=== PATIENT | female | born 1975 | race Caucasian/White ===

== ENCOUNTER 2017-05-06 22:44 | Emergency (ER) | payer OTHER, SELFPAY ==
--- OUTSIDE RECORDS SUMMARY | 2017-05-06 22:46 | XMS REPORT ---
:1975 [facility] Address [address] [place] [address] Care Team Providers Name Role Phone Unavailable Unavailable Unavailable Problems This patient has no known problems. Allergies, Adverse Reactions, Alerts This patient has no known allergies or adverse reactions. Medications This patient has no known medications. Encounters Start End Encounter Admission Attending Care Care Encounter Date/Time Date/Time Type Type Clinicians Facility Department ID 2016-12-11 Inpatient [facility] [id number] 19:13:58 2016-11-22 Inpatient [facility] [id number] 15:22:01 2016-11-21 Inpatient [facility] [id number] 01:48:38 2016-11-21 Inpatient [facility] [id number] 01:48:30 2016-11-20 Inpatient [facility] [id number] 05:55:00 2017-07-03 2017-07-03 Outpatient [facility] [id number] 00:00:00 00:00:00 2017-05-23 2017-05-23 Outpatient [facility] [id number] 00:00:00 00:00:00 2017-05-02 2017-05-02 Outpatient [facility] [id number] 00:00:00 00:00:00 2017-04-25 2017-04-25 Outpatient [facility] [id number] 09:01:53 09:01:53 2017-04-17 2017-04-17 Outpatient [facility] [id number] 06:05:00 06:05:00 2017-04-17 2017-04-17 Outpatient [facility] [id number] 00:00:00 00:00:00 2017-04-16 2017-04-16 Outpatient [facility] [id number] 00:00:00 00:00:00 2017-04-13 2017-04-13 Outpatient [facility] [id number] 09:12:04 09:12:04 2017-04-03 2017-04-03 Outpatient [facility] [id number] 00:00:00 00:00:00 2017-03-27 2017-03-27 Outpatient [facility] [id number] 06:15:00 06:15:00 2017-03-27 2017-03-27 Out[facility] [id number] 00:00:00 00:00:00 2017-03-19 2017-03-19 Outpatient [facility] [id number] 13:22:16 13:22:16 2017-03-19 2017-03-19 Outpatient [facility] [id number] 00:00:00 00:00:00 2017-03-12 2017-03-12 Outpatient [facility] [id number] 13:45:55 13:45:55 2017-03-09 2017-03-09 Outpatient [facility] [id number] 00:00:00 00:00:00 2017-03-08 2017-03-08 Outpatient [facility] [id number] 16:03:22 16:03:22 2017-03-08 2017-03-08 Outpatient [facility] [id number] 14:45:05 14:45:05 2017-02-23 2017-02-23 Outpatient [facility] [id number] 10:41:02 10:41:02 2017-02-23 2017-02-23 Outpatient [facility] [id number] 08:11:53 08:11:53 2017-02-23 2017-02-23 Outpatient [facility] [id number] 07:53:43 07:53:43 2017-02-23 2017-02-23 Outpatient [facility] [id number] 00:00:00 00:00:00 2017-02-08 2017-02-08 Outpatient [facility] [id number] 12:32:00 12:32:00 2017-01-24 2017-01-24 Outpatient [facility] [id number] 00:00:00 00:00:00 2017-01-23 2017-01-23 Outpatient [facility] [id number] 12:16:30 12:16:30 2017-01-22 2017-01-22 Outpatient [facility] [id number] 11:30:20 11:30:20 2017-01-15 2017-01-15 Outpatient [facility] [id number] 00:00:00 00:00:00 2017-01-09 2017-01-09 Outpatient [facility] [id number] 09:09:26 09:09:26 2017-01-04 2017-01-04 Outpatient [facility] [id number] 14:36:02 14:36:02 2017-01-02 2017-01-02 Outpatient [facility] [id number] 08:36:10 08:36:10 2016-12-27 2016-12-27 Outpatient [facility] [id number] 11:33:15 11:33:15 2016-12-22 2016-12-22 Outpatient [facility] [id number] 09:02:45 09:02:45 2016-12-11 2016-12-11 Outpatient [facility] [id number] 09:01:19 09:01:19 2016-12-11 2016-12-11 Inpatient [facility] [id number] 14:16:44 00:00:00 2016-12-07 2016-12-07 Outpatient [facility] [id number] 00:00:00 00:00:00 2016-12-06 2016-12-06 Outpatient [facility] [id number] 14:40:31 14:40:31 2016-12-04 2016-12-04 Outpatient [facility] [id number] 10:31:01 10:31:01 2016-11-27 2016-11-27 Outpatient [facility] [id number] 00:00:00 00:00:00 2016-11-20 2016-11-20 Outpatient [facility] [id number] 00:00:00 00:00:00 2016-11-20 2016-11-20 Outpatient [facility] [id number] 00:00:00 00:00:00 2016-11-17 2016-11-17 Outpatient [facility] [id number] 00:00:00 00:00:00 2016-10-12 2016-10-12 Outpatient [facility] [id number] 00:00:00 00:00:00 2016-10-10 2016-10-10 Out[facility] [id number] 00:00:00 00:00:00 2016-10-10 2016-10-10 [facility] [id number] 00:00:00 00:00:00 2016-10-10 2016-10-10 [facility] [id number] 00:00:00 00:00:00 2016-09-15 2016-09-15 [facility] [id number] 00:00:00 00:00:00 2016-08-30 2016-08-30 Out[facility] [id number] 09:44:27 09:44:27
--- NOTE | 2017-05-06 23:27 | ER ---
Nurse's Notes [facility] Name: Mildred Caldwell Age: 41 yrs Sex: Female : 1975 Arrival Date: 05/06/2017 Time: 22:47 Bed 8 Private MD: Diagnosis: Lumbago with sciatica Presentation: 05/06 22:53 Presenting complaint: EMS states: She has a history of chronic back pain and it got lk1 worse today after picking up one of her kids around 6pm. Transition of care: patient was not received from another setting of care. Onset of symptoms was May 06, 2017 at 18:00. Care prior to arrival: None. 22:53 Method Of Arrival: EMS: [facility] lk1 22:53 Acuity: JENNIFER 3 lk1 Triage Assessment: 22:58 General: Appears uncomfortable, Behavior is calm, cooperative, appropriate for age. lk1 Pain: Complains of pain in back Pain currently is 9 out of 10 on a pain scale. EENT: No signs and/or symptoms were reported regarding the EENT system. Neuro: Level of Consciousness is awake, alert, obeys commands, Oriented to person, place, time, situation, Speech is normal, Facial symmetry appears normal, Reports paresthesias in right foot and left foot. Cardiovascular: Capillary refill is brisk Patient's skin is warm and dry. Respiratory: Airway is patent Respiratory effort is even, unlabored, Respiratory pattern is regular, symmetrical. GI: Abdomen is non-distended. : No signs and/or symptoms were reported regarding the genitourinary system. Derm: No signs and/or symptoms reported regarding the dermatologic system. Musculoskeletal: Swelling absent. 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 - Social history:: Smoking status: unknown. Screenin/19 00:01 Abuse screen: Denies threats or abuse. Denies injuries from another. Nutritional lk1 screening: No deficits noted. Tuberculosis screening: No symptoms or risk factors identified. Fall Risk None identified. Assessment: 00:02 Neuro: No deficits noted. lk1 Vital Signs: 05/06 22:59 BP 110 / 76; Pulse 70; Resp 15; Temp 98.4(O); Pulse Ox 99% on R/A; Weight 69.4 kg (M); lk1 Height 5 ft. 6 in. (167.64 cm) (R); Pain 9/10; 22:59 Body Mass Index 24.69 (69.40 kg, 167.64 cm) [facility] ED Course: 22:47 Patient arrived in ED. [facility] 22:52 Shemar Barrera MD is Attending Physician. 22:56 Triage completed. lk1 23:01 Arm band placed on right wrist. [facility] 23:26 Nicholas Winchester DO is Referral Physician. 23:26 Carlitos Rocha MD is Referral Physician. 23:31 Kait Schneider RN is Primary Nurse. [facility] 05/07 00:01 Patient has correct armband on for positive identification. Bed in low position. Call lk1 light in reach. Side rails up X2. 00:02 No provider procedures requiring assistance completed. Patient did not have IV access lk during this emergency room visit. Administered Medications: 05/06 23:29 Drug: [place] 10 mg-325 mg 1 tabs Route: PO; ea 05/07 00:04 Follow up: Response: No adverse reaction; Pain is decreased [facility] 05/06 23:33 Drug: predniSONE 20 mg Route: PO; ea 05/07 00:04 Follow up: Response: No adverse reaction; Marked relief of symptoms [facility] Outcome: 05/06 23:27 Discharge ordered by . 05/07 00:02 Discharged to home via wheelchair, with family. lk Condition: good Discharge instructions given to patient, family, Instructed on discharge instructions, follow up and referral plans. medication usage, safety practices, Demonstrated understanding of instructions, follow-up care, medications, Prescriptions given X 2. 00:04 Patient left the ED. [facility] Signatures: Kait Schneider RN RN [facility] Susie Velazquez RN RN ea Starr, Gregory, MD MD
--- NOTE | 2017-05-06 23:27 | EDPHYS ---
Physician Documentation [facility] Name: Mildred Caldwell Age: 41 yrs Sex: Female : 1975 Arrival Date: 05/06/2017 Time: 22:47 Bed 8 Private MD: ED Physician Shemar Barrera HPI: 05/06 23:24 This 41 yrs old Female presents to ER via EMS with complaints of Back Pain. gs 23:24 The patient presents with pain that is acute. The symptoms are located in the low back. gs Onset: The symptoms/episode began/occurred acutely, today. The pain radiates to the right leg and left leg. Associated signs and symptoms: Pertinent positives: tingling, Pertinent negatives: incontinence, numbness, urinary retention. Modifying factors: the patient symptoms are aggravated by any movement. Severity of symptoms: At their worst the symptoms were severe, in the emergency department the symptoms are unchanged. The patient has experienced similar episodes in the past, multiple times. 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 - Social history:: Smoking status: unknown. ROS: 23:24 All other systems are negative. gs Exam: 23:24 Head/Face: Normocephalic, atraumatic. Eyes: Pupils equal round and reactive to light, gs extra-ocular motions intact. Lids and lashes normal. Conjunctiva and sclera are non-icteric and not injected. Cornea within normal limits. Periorbital areas with no swelling, redness, or edema. ENT: Nares patent. No nasal discharge, no septal abnormalities noted. Tympanic membranes are normal and external auditory canals are clear. Oropharynx with no redness, swelling, or masses, exudates, or evidence of obstruction, uvula midline. Mucous membranes moist. Neck: Trachea midline, no thyromegaly or masses palpated, and no cervical lymphadenopathy. Supple, full range of motion without nuchal rigidity, or vertebral point tenderness. No Meningismus. Chest/axilla: Normal chest wall appearance and motion. Nontender with no deformity. No lesions are appreciated. Cardiovascular: Regular rate and rhythm with a normal S1 and S2. No gallops, murmurs, or rubs. Normal PMI, no JVD. No pulse deficits. Respiratory: Lungs have equal breath sounds bilaterally, clear to auscultation and percussion. No rales, rhonchi or wheezes noted. No increased work of breathing, no retractions or nasal flaring. Abdomen/GI: Soft, non-tender, with normal bowel sounds. No distension or tympany. No guarding or rebound. No evidence of tenderness throughout. Skin: Warm, dry with normal turgor. Normal color with no rashes, no lesions, and no evidence of cellulitis. MS/ Extremity: Pulses equal, no cyanosis. Neurovascular intact. Full, normal range of motion. 23:24 Constitutional: The patient appears alert, awake. 23:24 Back: pain, that is moderate, of the lumbar area, vertebral tenderness, is not appreciated, Straight leg raises: pain bilaterally. 23:24 Neuro: Cranial nerves: grossly normal, Cerebellar function: is grossly normal, Motor: strength is 5/5 in all extremities, Sensation: no obvious gross deficits, pin prick testing is normal, Deep tendon reflexes are 3+ (brisk) in the right patellar, right Achilles, left patellar and left Achilles. Vital Signs: 22:59 BP 110 / 76; Pulse 70; Resp 15; Temp 98.4(O); Pulse Ox 99% on R/A; Weight 69.4 kg (M); lk1 Height 5 ft. 6 in. (167.64 cm) (R); Pain 9/10; 22:59 Body Mass Index 24.69 (69.40 kg, 167.64 cm) [facility] MDM: 23:18 Patient medically screened. 23:24 Differential diagnosis: chronic back pain, ruptured disc. Data reviewed: vital signs, nurses notes. Response to treatment: the patient's symptoms have mildly improved after treatment, and as a result, I will discharge patient. Administered Medications: 23:29 Drug: [place] 10 mg-325 mg 1 tabs Route: PO; ea 05/07 00:04 Follow up: Response: No adverse reaction; Pain is decreased [facility] 05/06 23:33 Drug: predniSONE 20 mg Route: PO; ea 05/07 00:04 Follow up: Response: No adverse reaction; Marked relief of symptoms lk1 Disposition: 05/06/17 23:27 Discharged to Home. Impression: Lumbago with sciatica. - Condition is Stable. - Discharge Instructions: Lumbosacral Radiculopathy, Back Exercises, Xury-do-Lfof. - Prescriptions for Prednisone 20 mg Oral Tablet - take 1 tablet by ORAL route once daily for 5 days; 5 tablet. Tylenol- Codeine #4 300-60 mg Oral Tablet - take 1 tablet by ORAL route every 6 hours As needed; 12 tablet. - Medication Reconciliation Form, Thank You Letter, Antibiotic Education, Prescription Opioid Use form. - Follow up: Nicholas Winchester DO; When: 2 - 3 days. Follow up: Carlitos Rocha MD; When: 2 - 3 days; Reason: Re-evaluation by your physician. Signatures: Kati Schneider RN RN lk1 Susie Velazquez RN RN ea Starr, Gregory, MD MD
[2017-05-06] MEDS ORDERED: HYDROCODONE/APAP 10/325 TAB ONE (23:47)
[2017-05-06] MEDS ORDERED: predniSONE 20 MG TAB ONE (23:49)
[2017-05-07 01:25] VITALS: BP 110/76; TEMP 98.4; O2SAT 99
== END 2017-05-07 00:04 | disposition home or self-care (01) ==
LOC: ER 22:44
DX: M54.40 Lumbago with sciatica, unspecified side (principal)
CPT/HCPCS: 99283; J7512

== ENCOUNTER 2017-05-28 12:12 | Emergency (ER) | payer SELFPAY ==
--- OUTSIDE RECORDS SUMMARY | 2017-05-28 12:14 | XMS REPORT ---
:1975 [facility] Address [address] [place] [address] Care Team Providers Name Role Phone Unavailable Unavailable Unavailable Problems This patient has no known problems. Allergies, Adverse Reactions, Alerts This patient has no known allergies or adverse reactions. Medications This patient has no known medications. Encounters Start End Encounter Admission Attending Care Care Encounter Date/Time Date/Time Type Type Clinicians Facility Department ID 2016-12-11 Inpatient [facility] [id number] 19:13:58 2016-11-22 Inpatient [facility] [id number] 15:22:01 2016-11-21 Inpatient [facility] [id number] 01:48:38 2016-11-21 Inpatient [facility] [id number] 01:48:30 2016-11-20 Inpatient COUNTS [facility]CLUDE [id number] BEDS AT THE [facility] [id number] 05:55:00 2017-07-05 2017-07-05 Outpatient [facility] [id number] 00:00:00 00:00:00 2017-07-03 2017-07-03 Outpatient [facility] [id number] 00:00:00 00:00:00 2017-05-23 2017-05-23 Outpatient [facility] [id number] 13:13:44 13:13:44 2017-05-02 2017-05-02 Outpatient [facility] [id number] 00:00:00 00:00:00 2017-04-25 2017-04-25 Outpatient [facility] [id number] 09:01:53 09:01:53 2017-04-17 2017-04-17 Outpatient COUNTS [facility]CLUDE [id number] BEDS AT THE [facility] [id number] 06:05:00 06:05:00 2017-04-17 2017-04-17 Outpatient [facility] [id number] 00:00:00 00:00:00 2017-04-16 2017-04-16 Outpatient [facility] [id number] 00:00:00 00:00:00 2017-04-13 2017-04-13 Outpatient [facility] [id number] 09:12:04 09:12:04 2017-04-03 2017-04-03 Outpatient [facility] [id number] 00:00:00 00:00:00 2017-03-27 2017-03-27 Outpatient [facility] [id number] 06:15:00 06:15:00 2017-03-27 2017-03-27 Outpatient [facility] [id number] 00:00:00 00:00:00 2017-03-19 2017-03-19 Outpatient [facility] [id number] 13:22:16 13:22:16 2017-03-19 2017-03-19 Outpatient [facility] [id number] 00:00:00 00:00:00 2017-03-12 2017-03-12 Outpatient [facility] [id number] 13:45:55 13:45:55 2017-03-09 2017-03-09 Outpatient [facility] [id number] 00:00:00 00:00:00 2017-03-08 2017-03-08 Outpatient [facility] [id number] 16:03:22 16:03:22 2017-03-08 2017-03-08 Outpatient [facility] [id number] 14:45:05 14:45:05 2017-02-23 2017-02-23 Outpatient [facility] [id number] 10:41:02 10:41:02 2017-02-23 2017-02-23 Outpatient [facility] [id number] 08:11:53 08:11:53 2017-02-23 2017-02-23 Outpatient [facility] [id number] 07:53:43 07:53:43 2017-02-23 2017-02-23 Outpatient [facility] [id number] 00:00:00 00:00:00 2017-02-08 2017-02-08 Outpatient [facility] [id number] 12:32:00 12:32:00 2017-01-24 2017-01-24 Outpatient [facility] [id number] 00:00:00 00:00:00 2017-01-23 2017-01-23 [facility] [id number] 12:16:30 12:16:30 2017-01-22 2017-01-22 [facility]patient [facility] [id number] 11:30:20 11:30:20 2017-01-15 2017-01-15 Outpatient [facility] [id number] 00:00:00 00:00:00 2017-01-09 2017-01-09 Outpatient [facility] [id number] 09:09:26 09:09:26 2017-01-04 2017-01-04 Outpatient [facility] [id number] 14:36:02 14:36:02 2017-01-02 2017-01-02 Outpatient [facility] [id number] 08:36:10 08:36:10 2016-12-27 2016-12-27 Outpatient [facility] [id number] 11:33:15 11:33:15 2016-12-22 2016-12-22 Outpatient [facility] [id number] 09:02:45 09:02:45 2016-12-11 2016-12-11 Outpatient [facility] [id number] 09:01:19 09:01:19 2016-12-11 2016-12-11 Inpatient [facility] [id number] 14:16:44 00:00:00 2016-12-07 2016-12-07 Outpatient [facility] [id number] 00:00:00 00:00:00 2016-12-06 2016-12-06 Outpatient [facility] [id number] 14:40:31 14:40:31 2016-12-04 2016-12-04 Outpatient [facility] [id number] 10:31:01 10:31:01 2016-11-27 2016-11-27 Outpatient [facility] [id number] 00:00:00 00:00:00 2016-11-20 2016-11-20 Outpatient [facility] [id number] 00:00:00 00:00:00 2016-11-20 2016-11-20 Outpatient [facility] [id number] 00:00:00 00:00:00 2016-11-17 2016-11-17 Outpatient [facility] [id number] 00:00:00 00:00:00 2016-10-12 2016-10-12 Outpatient [facility] [id number] 00:00:00 00:00:00 2016-10-10 2016-10-10 Outpatient [facility] [id number] 00:00:00 00:00:00 2016-10-10 2016-10-10 Outpatient [facility] [id number] 00:00:00 00:00:00 2016-10-10 2016-10-10 Outpatient [facility] [id number] 00:00:00 00:00:00 2016-09-15 2016-09-15 Outpatient [facility] [id number] 00:00:00 00:00:00 2016-08-30 2016-08-30 Outpatient [facility] [id number] 09:44:27 09:44:27
--- OUTSIDE RECORDS SUMMARY | 2017-05-28 12:14 | XMS REPORT | Clinical Summary ---
:1975 Author Organization [facility] Address [address] [place] [address] Phone Care Team Providers Name Role Phone Unavailable Primary Care Provider Unavailable Allergies No Known Allergies Current Medications Prescription Sig. Disp. Refills Start Date End Date Status ibuprofen (ADVIL,MOTRIN) Take 200 mg by Active 200 MG tablet mouth every 6 (six) hours as needed for Pain. Active Problems Not on file Social History Tobacco Use Types Packs/Day Years Used Date Never Smoker Alcohol Use Drinks/Week oz/Week Comments Yes 1 per 3 months Sex Assigned at Date Recorded Not on file Last Filed Vital Signs Not on file Plan of Treatment Not on file Results Not on fileafter 05/27/2016
--- NOTE | 2017-05-28 13:37 | EDPHYS ---
Physician Documentation [facility] Name: Mildred Caldwell Age: 41 yrs Sex: Female : 1975 Arrival Date: 05/28/2017 Time: 12:15 Bed 23 Private MD: ED Physician Peng Jackson HPI: 05/28 13:34 This 41 yrs old Female presents to ER via Ambulatory with complaints of Ear rn Pain, Cough. 13:34 The patient presents with pain. The complaints affect the left ear. Onset: The rn symptoms/episode began/occurred 1 week(s) ago. Severity of symptoms: At their worst the symptoms were moderate in the emergency department the symptoms are unchanged. The patient has not experienced similar symptoms in the past. Reports left ear pain, constant, getting worse, over last week, no fever, + cough and runny nose, + mild drainage. . 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 - Social history:: Smoking status: Patient/guardian denies using tobacco, never smoked. - Family history:: not pertinent. - Hospitalizations: : No recent hospitalization is reported. ROS: 13:34 Constitutional: Negative for fever, chills, and weight loss, Eyes: Negative for injury, rn pain, redness, and discharge, ENT: + pain and drainage of left ear, + sore throat Neck: Negative for injury, pain, and swelling, Cardiovascular: Negative for palpitations, and edema Respiratory: Negative for shortness of breath, wheezing, and pleuritic chest pain, Abdomen/GI: Negative for abdominal pain, nausea, vomiting, diarrhea, and constipation, MS/Extremity: Negative for injury and deformity, Skin: Negative for injury, rash, and discoloration, Neuro: Negative for headache, weakness, numbness, tingling, and seizure. Exam: 13:34 Constitutional: This is a well developed, well nourished patient who is awake, alert, rn and in no acute distress. Head/Face: Normocephalic, atraumatic. Eyes: Pupils equal round and reactive to light, extra-ocular motions intact. Lids and lashes normal. Conjunctiva and sclera are non-icteric and not injected. Cornea within normal limits. Periorbital areas with no swelling, redness, or edema. ENT: + left external auditory meatus with swelling, + painful movement of left ear, TM not visualized Neck: Trachea midline, no thyromegaly or masses palpated, and no cervical lymphadenopathy. Supple, full range of motion without nuchal rigidity, or vertebral point tenderness. No Meningismus. Cardiovascular: Regular rate and rhythm with a normal S1 and S2. No gallops, murmurs, or rubs. Normal PMI, no JVD. No pulse deficits. Respiratory: Lungs have equal breath sounds bilaterally, clear to auscultation and percussion. No rales, rhonchi or wheezes noted. No increased work of breathing, no retractions or nasal flaring. Neuro: Awake and alert, GCS 15, oriented to person, place, time, and situation. Cranial nerves II-XII grossly intact. Motor strength 5/5 in all extremities. Sensory grossly intact. Cerebellar exam normal. Normal gait. Vital Signs: 12:34 BP 135 / 91; Pulse 100; Resp 18; Temp 98.6(TE); Pulse Ox 100% on R/A; Weight 68.04 kg; hj Height 5 ft. 6 in. (167.64 cm); Pain 8/10; 13:27 BP 137 / 90; Pulse 99; Resp 18; Pulse Ox 100% on R/A; tl3 12:34 Body Mass Index 24.21 (68.04 kg, 167.64 cm) MDM: 12:58 Patient medically screened. rn 13:34 Differential diagnosis: otitis externa, acute otalgia. Data reviewed: vital signs, rn nurses notes, and as a result, I will discharge patient. Counseling: I had a detailed discussion with the patient and/or guardian regarding: the historical points, exam findings, and any diagnostic results supporting the discharge/admit diagnosis, the need for outpatient follow up, to return to the emergency department if symptoms worsen or persist or if there are any questions or concerns that arise at home. Special discussion: I discussed with the patient/guardian in detail that at this point there is no indication for admission to the hospital. It is understood, however, that if the symptoms persist or worsen the patient needs to return immediately for re-evaluation. Administered Medications: No medications were administered Disposition: 05/28/17 13:37 Discharged to Home. Impression: Otitis externa. - Condition is Stable. - Discharge Instructions: Otitis Externa, Upper Respiratory Infection, Adult. - Prescriptions for Zithromax Z- Troy 250 mg Oral Tablet - take 1 tablet by ORAL route as directed for 5 days Day 1 - take two (2) tablets one time. Day 2, 3, 4 , 5 take one (1) tablet once daily.; 6 tablet. Ciprodex 0.3- 0.1 % Otic Drops, Suspension - instill 4 drop by OTIC route every 12 hours for 7 days , for ears ONLY; 1 Container. - Medication Reconciliation Form, Thank You Letter, Antibiotic Education, Prescription Opioid Use form. - Follow up: Private Physician; When: As needed; Reason: Recheck today's complaints, Re-evaluation by your physician. - Problem is an ongoing problem. - Symptoms are unchanged. Signatures: Peng Jackson MD MD rn Joaquin, Henry RN TACHO Becki Jenkins RN RN tl3
--- NOTE | 2017-05-28 13:37 | ER ---
Nurse's Notes [facility] Name: Mildred Caldwell Age: 41 yrs Sex: Female : 1975 Arrival Date: 05/28/2017 Time: 12:15 Bed 23 Private MD: Diagnosis: Otitis externa Presentation: 05/28 12:31 Presenting complaint: Patient states: tyler been sick for a week now, L ear pain, cough, hj reports fever and chills; my chest is hurting to for a week now too;. Transition of care: patient was not received from another setting of care. Onset of symptoms was May 28, 2017. Care prior to arrival: None. 12:31 Method Of Arrival: Ambulatory hj 12:31 Acuity: JENNIFER 3 hj Triage Assessment: 12:33 General: Appears in no apparent distress. uncomfortable, Behavior is calm, cooperative, hj appropriate for age. Pain: Complains of pain in chest. EENT: Reports pain in left ear. 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 - Social history:: Smoking status: Patient/guardian denies using tobacco, never smoked. - Family history:: not pertinent. - Hospitalizations: : No recent hospitalization is reported. Screenin:36 Abuse screen: Denies threats or abuse. Nutritional screening: No deficits noted. tl3 Tuberculosis screening: No symptoms or risk factors identified. Fall Risk None identified. Assessment: 13:03 Reassessment: pt eo room, Dr Jackson at bedside for assessment. tl3 13:27 General: Appears in no apparent distress. comfortable, slender, well groomed, well tl3 developed, well nourished, Behavior is calm, cooperative, appropriate for age. Pain: Complains of pain in left ear Pain currently is 8 out of 10 on a pain scale. Neuro: No deficits noted. Level of Consciousness is awake, alert, obeys commands, Oriented to person, place, time, situation, Appropriate for age. Cardiovascular: No deficits noted. Heart tones S1 S2 present Capillary refill < 3 seconds in bilateral fingers. Respiratory: Airway is patent Trachea midline Respiratory effort is even, unlabored, Respiratory pattern is regular, symmetrical. GI: No signs and/or symptoms were reported involving the gastrointestinal system. : No signs and/or symptoms were reported regarding the genitourinary system. EENT: Reports pain in left ear. Derm: No signs and/or symptoms reported regarding the dermatologic system. Musculoskeletal: No signs and/or symptoms reported regarding the musculoskeletal system. Vital Signs: 12:34 BP 135 / 91; Pulse 100; Resp 18; Temp 98.6(TE); Pulse Ox 100% on R/A; Weight 68.04 kg; hj Height 5 ft. 6 in. (167.64 cm); Pain 8/10; 13:27 BP 137 / 90; Pulse 99; Resp 18; Pulse Ox 100% on R/A; tl3 12:34 Body Mass Index 24.21 (68.04 kg, 167.64 cm) hj ED Course: 12:15 Patient arrived in ED. mr 12:33 Triage completed. hj 12:34 Arm band placed on right wrist. hj 12:40 EKG done, by pilot plant technician. reviewed by Peng Jackson MD. at1 12:58 Peng Jackson MD is Attending Physician. rn 13:03 Becki Jenkins, TACHO is Primary Nurse. tl3 13:36 Patient has correct armband on for positive identification. tl3 13:36 No provider procedures requiring assistance completed. Patient did not have IV access tl3 during this emergency room visit. Administered Medications: No medications were administered Outcome: 13:37 Discharge ordered by MD. rn 13:49 Patient left the ED. hj Signatures: Isamar Escalante Roman, MD MD rn gonzales, Amanda, regional trainer EKG Tat1 Antonio Kaye RN RN Becki Jenkins, TACHO RN tl3 Corrections: (The following items were deleted from the chart) 12:33 12:31 Acuity: JENNIFER 4 hj hj 12:35 12:34 Pulse 100bpm; Resp 18bpm; Pulse Ox 100% RA; Temp 98.6F Temporal; 68.04 kg; Height hj 5 ft. 6 in.; BMI: 24.2; Pain 8/10; hj
[2017-05-28 14:01] VITALS: TEMP 98.6; O2SAT 100
[2017-05-28 14:02] VITALS: BP 137/90
--- NOTE | 2017-05-28 14:13 | EKG ---
Test Date: 2017-05-28 Test Time: 12:31:08 Trimming Cutter: LILI MEASUREMENT RESULTS: Intervals: Rate: 103 OR: 120 QRSD: 88 QT: 332 QTc: 434 [place]: P: 65 OR: 120 QRS: 64 T: 53 INTERPRETIVE STATEMENTS: Sinus tachycardia Otherwise normal ECG No previous ECG available for comparison Electronically Signed On 05-28-17 14:12:30 CDT by Narinder Mayen
== END 2017-05-28 13:49 | disposition home or self-care (01) ==
LOC: ER 12:12
DX: H60.90 Unspecified otitis externa, unspecified ear (principal); Z88.5 Allergy status to narcotic agent; Z88.6 Allergy status to analgesic agent
CPT/HCPCS: 93005; 99282

== ENCOUNTER 2017-10-06 18:01 | Emergency (ER) | payer OTHER, SELFPAY ==
--- OUTSIDE RECORDS SUMMARY | 2017-10-06 18:02 | XMS REPORT | Clinical Summary ---
:1975 Author Organization [facility] Address [address] [place] [address] Phone Care Team Providers Name Role Phone [...] Not on file Results Not on fileafter 10/05/2016
--- OUTSIDE RECORDS SUMMARY | 2017-10-06 18:03 | XMS REPORT ---
:1975 [facility] Address [address] [place] [address] Care Team Providers Name Role Phone Unavailable Unavailable Unavailable Problems This patient has no known problems. Allergies, Adverse Reactions, Alerts This patient has no known allergies or adverse reactions. Medications This patient has no known medications. Encounters Start End Encounter Admission Attending Care Care Encounter Date/Time Date/Time Type Type Clinicians Facility Department ID 2016-12-11 Inpatient [facility] [id number] 19:13:58 2016-11-22 Inpatient [facility] [id number] 15:22:01 2016-11-21 Inpatient [facility] [id number] 01:48:38 2016-11-21 Inpatient [facility] [id number] 01:48:30 2016-11-20 Inpatient [facility] [id number] 05:55:00 2017-11-21 2017-11-21 Outpatient [facility] [id number] 00:00:00 00:00:00 2017-11-16 2017-11-16 Outpatient [facility] [id number] 00:00:00 00:00:00 2017-11-08 2017-11-08 Outpatient [facility] [id number] 00:00:00 00:00:00 2017-10-11 2017-10-11 Outpatient [facility] [id number] 00:00:00 00:00:00 2017-10-10 2017-10-10 Outpatient [facility] [id number] 00:00:00 00:00:00 2017-10-03 2017-10-03 Outpatient [facility] [id number] 00:00:00 00:00:00 2017-09-28 2017-09-28 Outpatient [facility] [id number] 06:43:36 06:43:36 2017-09-28 2017-09-28 Outpatient [facility] [id number] 00:00:00 00:00:00 2017-09-28 2017-09-28 Outpatient [facility] [id number] 00:00:00 00:00:00 2017-09-26 2017-09-26 Outpatient [facility] [id number] 13:42:42 13:42:42 2017-09-21 2017-09-21 Outpatient [facility] [id number] 00:00:00 00:00:00 2017-09-19 2017-09-19 Outpatient [facility] [id number] 14:50:01 14:50:01 2017-09-19 2017-09-19 Outpatient [facility] [id number] 13:16:35 13:16:35 2017-09-12 2017-09-12 Outpatient [facility] [id number] 00:00:00 00:00:00 2017-08-24 2017-08-24 Outpatient [facility] [id number] 09:22:38 09:22:38 2017-07-27 2017-07-27 Outpatient [facility] [id number] 10:35:47 10:35:47 2017-07-05 2017-07-05 Outpatient [facility] [id number] 12:15:23 12:15:23 2017-07-03 2017-07-03 Outpatient [facility] [id number] 00:00:00 00:00:00 2017-05-23 2017-05-23 Outpatient [facility] [id number] 13:13:44 13:13:44 2017-05-02 2017-05-02 Outpatient [facility] [id number] 00:00:00 00:00:00 2017-04-25 2017-04-25 Outpatient [facility] [id number] 09:01:53 09:01:53 2017-04-17 2017-04-17 Outpatient [facility] [id number] 06:05:00 06:05:00 2017-04-17 2017-04-17 Outpatient [facility] [id number] 00:00:00 00:00:00 2017-04-16 2017-04-16 Outpatient [facility] [id number] 00:00:00 00:00:00 2017-04-13 2017-04-13 Outpatient [facility] [id number] 09:12:04 09:12:04 2017-04-03 2017-04-03 Outpatient [facility] [id number] 00:00:00 00:00:00 2017-03-27 2017-03-27 Outpatient [facility] [id number] 06:15:00 06:15:00 2017-03-27 2017-03-27 Outpatient [facility] [id number] 00:00:00 00:00:00 2017-03-19 2017-03-19 Outpatient [facility] [id number] 13:22:16 13:22:16 2017-03-19 2017-03-19 Outpatient [facility] [id number] 00:00:00 00:00:00 2017-03-12 2017-03-12 Outpatient [facility] [id number] 13:45:55 13:45:55 2017-03-09 2017-03-09 Outpatient [facility] [id number] 00:00:00 00:00:00 2017-03-08 2017-03-08 Outpatient [facility] [id number] 16:03:22 16:03:22 2017-03-08 2017-03-08 Outpatient [facility] [id number] 14:45:05 14:45:05 2017-02-23 2017-02-23 Outpatient [facility] [id number] 10:41:02 10:41:02 2017-02-23 2017-02-23 Outpatient [facility] [id number] 08:11:53 08:11:53 2017-02-23 2017-02-23 Outpatient [facility] [id number] 07:53:43 07:53:43 2017-02-23 2017-02-23 Outpatient [facility] [id number] 00:00:00 00:00:00 2017-02-08 2017-02-08 Outpatient [facility] [id number] 12:32:00 12:32:00 2017-01-24 2017-01-24 Outpatient [facility] [id number] 00:00:00 00:00:00 2017-01-23 2017-01-23 Outpatient [facility] [id number] 12:16:30 12:16:30 2017-01-22 2017-01-22 Outpatient [facility] [id number] 11:30:20 11:30:20 2017-01-15 2017-01-15 Outpatient [facility] [id number] 00:00:00 00:00:00 2017-01-09 2017-01-09 Outpatient [facility] [id number] 09:09:26 09:09:26 2017-01-04 2017-01-04 Outpatient [facility] [id number] 14:36:02 14:36:02 2017-01-02 2017-01-02 Outpatient [facility] [id number] 08:36:10 08:36:10 2016-12-27 2016-12-27 Outpatient [facility] [id number] 11:33:15 11:33:15 2016-12-22 2016-12-22 Outpatient [facility] [id number] 09:02:45 09:02:45 2016-12-11 2016-12-11 Outpatient [facility] [id number] 09:01:19 09:01:19 2016-12-11 2016-12-11 Inpatient [facility] [id number] 14:16:44 00:00:00 2016-12-07 2016-12-07 Outpatient [facility] [id number] 00:00:00 00:00:00 2016-12-06 2016-12-06 Outpatient [facility] [id number] 14:40:31 14:40:31 2016-12-04 2016-12-04 Outpatient [facility] [id number] 10:31:01 10:31:01 2016-11-27 2016-11-27 Outpatient [facility] [id number] 00:00:00 00:00:00 2016-11-20 2016-11-20 Outpatient [facility] [id number] 00:00:00 00:00:00 2016-11-20 2016-11-20 Outpatient [facility] [id number] 00:00:00 00:00:00 2016-11-17 2016-11-17 Outpatient [facility] [id number] 00:00:00 00:00:00 2016-10-12 2016-10-12 Outpatient [facility] [id number] 00:00:00 00:00:00 2016-10-10 2016-10-10 Outpatient [facility] [id number] 00:00:00 00:00:00 2016-10-10 2016-10-10 Outpatient [facility] [id number] 00:00:00 00:00:00 2016-10-10 2016-10-10 Outpatient [facility] [id number] 00:00:00 00:00:00 2016-09-15 2016-09-15 Outpatient [facility] [id number] 00:00:00 00:00:00 2016-08-30 2016-08-30 [facility] [id number] 09:44:27 09:44:27
[2017-10-06] MEDS ORDERED: MECLIZINE HCL 12.5 MG TAB ONE (18:47)
--- NOTE | 2017-10-06 19:53 | EDPHYS ---
Physician Documentation [facility] Name: Mildred Caldwell Age: 41 yrs Sex: Female : 1975 Arrival Date: 10/06/2017 Time: 18:04 Bed 13 Private MD: Mert Paul E ED Physician Shemar Barrera HPI: 10/06 19:57 This 41 yrs old Female presents to ER via Wheelchair with complaints of snw Nausea, Dizziness. 19:57 The patient presents to the emergency department with nausea, vomiting, abdominal pain. snw Onset: The symptoms/episode began/occurred 2 year(s) ago, and became persistent. Possible causes: unknown. The symptoms are aggravated by bending over, lying down. Associated signs and symptoms: Pertinent positives: nausea, vomiting. Severity of symptoms: At their worst the symptoms were moderate severe. The patient has experienced similar episodes in the past, chronically. The patient has been recently seen by a physician: pt had a colonoscopy last week, schedule for CT abd this coming week.. orthostatics normal. 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 - Social history:: Smoking status: Patient/guardian denies using tobacco. - Ebola Screening: : Patient negative for fever greater than or equal to 101.5 degrees Fahrenheit, and additional compatible Ebola Virus Disease symptoms Patient denies exposure to infectious person Patient denies travel to an Ebola-affected area in the 21 days before illness onset No symptoms or risks identified at this time. ROS: 19:56 Constitutional: Negative for fever, chills, and weight loss, Eyes: Negative for injury, snw pain, redness, and discharge, ENT: Negative for injury, pain, and discharge, Neck: Negative for injury, pain, and swelling, Cardiovascular: Negative for chest pain, palpitations, and edema, Respiratory: Negative for shortness of breath, cough, wheezing, and pleuritic chest pain, Back: Negative for injury and pain, : Negative for injury, bleeding, discharge, and swelling, MS/Extremity: Negative for injury and deformity, Skin: Negative for injury, rash, and discoloration. 19:56 Abdomen/GI: Positive for abdominal pain, nausea and vomiting. 19:56 Neuro: Positive for dizziness, when bending over. Exam: 19:55 Constitutional: This is a well developed, well nourished patient who is awake, alert, snw and in no acute distress. Head/Face: Normocephalic, atraumatic. Eyes: Pupils equal round and reactive to light, extra-ocular motions intact. Lids and lashes normal. Conjunctiva and sclera are non-icteric and not injected. Cornea within normal limits. Periorbital areas with no swelling, redness, or edema. ENT: Nares patent. No nasal discharge, no septal abnormalities noted. Tympanic membranes are normal and external auditory canals are clear. Oropharynx with no redness, swelling, or masses, exudates, or evidence of obstruction, uvula midline. Mucous membranes moist. Neck: Trachea midline, no thyromegaly or masses palpated, and no cervical lymphadenopathy. Supple, full range of motion without nuchal rigidity, or vertebral point tenderness. No Meningismus. Chest/axilla: Normal chest wall appearance and motion. Nontender with no deformity. No lesions are appreciated. Cardiovascular: Regular rate and rhythm with a normal S1 and S2. No gallops, murmurs, or rubs. Normal PMI, no JVD. No pulse deficits. Respiratory: Lungs have equal breath sounds bilaterally, clear to auscultation and percussion. No rales, rhonchi or wheezes noted. No increased work of breathing, no retractions or nasal flaring. Abdomen/GI: Soft, non-tender, with normal bowel sounds. No distension or tympany. No guarding or rebound. No evidence of tenderness throughout. Back: No spinal tenderness. No costovertebral tenderness. Full range of motion. Skin: Warm, dry with normal turgor. Normal color with no rashes, no lesions, and no evidence of cellulitis. MS/ Extremity: Pulses equal, no cyanosis. Neurovascular intact. Full, normal range of motion. Neuro: Awake and alert, GCS 15, oriented to person, place, time, and situation. Cranial nerves II-XII grossly intact. Motor strength 5/5 in all extremities. Sensory grossly intact. Cerebellar exam normal. Normal gait. Psych: Awake, alert, with orientation to person, place and time. Behavior, mood, and affect are within anxious Vital Signs: 18:10 BP 131 / 71; Pulse 72; Resp 15; Temp 98.0; Pulse Ox 98% on R/A; Weight 68.04 kg; Height aj 5 ft. 6 in. (167.64 cm); 19:36 BP 139 / 109; Pulse 66; Resp 18; Pulse Ox 99% on R/A; tl3 19:54 BP 138 / 98 Supine; Pulse 66; tl3 19:54 BP 146 / 103 Sitting; Pulse 65; tl3 19:54 BP 135 / 102 Standing; Pulse 71; tl3 20:16 BP 138 / 98; Pulse 67; Resp 18; Pulse Ox 98% on R/A; tl3 18:10 Body Mass Index 24.21 (68.04 kg, 167.64 cm) aj MDM: 18:42 Patient medically screened. snw 19:56 Data reviewed: vital signs, nurses notes. Data interpreted: Pulse oximetry: on room air snw is 99 %. Interpretation: normal. Counseling: I had a detailed discussion with the patient and/or guardian regarding: the historical points, exam findings, and any diagnostic results supporting the discharge/admit diagnosis, the presence of at least one elevated blood pressure reading (>120/80) during this emergency department visit, the need for outpatient follow up, to return to the emergency department if symptoms worsen or persist or if there are any questions or concerns that arise at home. Special discussion: Based on the patient's Hx, exam, and Dx evaluation, there is no indication for emergent surgery or inpatient Tx. It is understood by the patient/guardian that if the Sx's persist or worsen they need to return immediately for re-evaluation. I have referred the patient to see his PCP for further evaluation of high blood pressure. Based on the history and exam findings, there is no indication for further emergent testing or inpatient evaluation. I discussed with the patient/guardian the need to see the property management bookkeeper for further evaluation of the symptoms. I discussed with the patient/guardian the need to see the primary care provider for further evaluation of the symptoms. 10/06 19:16 Order name: Orthostatics; Complete Time: 19:56 snw Administered Medications: 18:47 Drug: Meclizine 50 mg Route: PO; tl3 19:56 Follow up: Response: No adverse reaction tl3 Disposition: 10/06/17 19:52 Discharged to Home. Impression: Dizziness and giddiness, Nausea with vomiting, unspecified. - Condition is Stable. - Discharge Instructions: Benign Positional Vertigo, Clear Liquid Diet, Adult, Dizziness, Hypertension, Nausea and Vomiting, Adult, Joe Maneuver Self-Care, Rehydration, Adult. - Prescriptions for promethazine 25 mg Oral Tablet - take 1 tablet by ORAL route every 6 hours As needed; 20 tablet. - Medication Reconciliation Form, Thank You Letter, Antibiotic Education, Prescription Opioid Use form. - Follow up: Mert Paul MD; When: 2 - 3 days; Reason: Recheck today's complaints, Continuance of care, Re-evaluation by your physician. - Notes: Please keep appt with Gastroenterology for follow up on colonoscopy and keep appt for CT of abdomen next week. Signatures: Debbi Duckworth RN RN Yamila Venegas, FREIGHT CAR INSPECTOR-C FREIGHT CAR INSPECTOR-Csnw Becki Jenkins RN RN tl3 Corrections: (The following items were deleted from the chart) 18:28 18:10 PSHx: "double bisectomy"; itzel tl3 20:17 19:52 10/06/2017 19:52 Discharged to Home. Impression: Dizziness and giddiness; Nausea tl3 with vomiting, unspecified. Condition is Stable. Forms are Medication Reconciliation Form, Thank You Letter, Antibiotic Education, Prescription Opioid Use. Follow up: Mert Paul; When: 2 - 3 days; Reason: Recheck today's complaints, Continuance of care, Re-evaluation by your physician. snw
--- NOTE | 2017-10-06 19:53 | ER ---
Nurse's Notes [facility] Name: Mildred Caldwell Age: 41 yrs Sex: Female : 1975 Arrival Date: 10/06/2017 Time: 18:04 Bed 13 Private MD: Mert Paul E Diagnosis: Dizziness and giddiness;Nausea with vomiting, unspecified Presentation: 10/06 18:09 Presenting complaint: Patient states: Dizziness when bending over that started today. aj Nausea and vomiting since December. Transition of care: patient was not received from another setting of care. Onset of symptoms was October 06, 2017. Risk Assessment: Do you want to hurt yourself or someone else? Patient reports no desire to harm self or others. Initial Sepsis Screen: Does the patient meet any 2 criteria? No. Patient's initial sepsis screen is negative. Does the patient have a suspected source of infection? No. Patient's initial sepsis screen is negative. Care prior to arrival: None. 18:09 Method Of Arrival: Wheelchair aj 18:09 Acuity: JENNIFER 3 aj Triage Assessment: 18:10 General: Appears in no apparent distress. comfortable, Behavior is calm, cooperative, aj appropriate for age. Pain: Complains of pain in right upper quadrant and left upper quadrant. Neuro: Level of Consciousness is awake, alert, obeys commands, Oriented to person, place, time, situation, Appropriate for age Reports dizziness, when bending. Respiratory: Airway is patent Respiratory effort is even, unlabored, Respiratory pattern is regular, symmetrical. GI: Reports nausea, vomiting. Derm: Skin is intact, is healthy with good turgor, Skin is pink, warm \\T\\ dry. normal. 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 - Social history:: Smoking status: Patient/guardian denies using tobacco. - Ebola Screening: : Patient negative for fever greater than or equal to 101.5 degrees Fahrenheit, and additional compatible Ebola Virus Disease symptoms Patient denies exposure to infectious person Patient denies travel to an Ebola-affected area in the 21 days before illness onset No symptoms or risks identified at this time. Screenin:21 Abuse screen: Denies threats or abuse. Nutritional screening: No deficits noted. tl3 Tuberculosis screening: No symptoms or risk factors identified. Fall Risk None identified. Assessment: 18:21 General: Appears distressed, uncomfortable, well groomed, well developed, well tl3 nourished, Behavior is cooperative, appropriate for age, crying. Pain: Complains of pain in abdomen and left upper quadrant Pain currently is 8 out of 10 on a pain scale. Aggravated by increased activity, bending over, any use of abdominal muscles causes great discomfort and pain. Neuro: Level of Consciousness is awake, alert, obeys commands, Oriented to person, place, time, situation, Appropriate for age. Cardiovascular: Patient's skin is warm and dry. Respiratory: Airway is patent Respiratory effort is even, unlabored, Respiratory pattern is regular, symmetrical. GI: Abdomen is round distended, Bowel sounds present X 4 quads. Abd is soft Abdomen is tender to palpation in left upper quadrant. : No signs and/or symptoms were reported regarding the genitourinary system. EENT: No signs and/or symptoms were reported regarding the EENT system. Derm: No signs and/or symptoms reported regarding the dermatologic system. Musculoskeletal: No signs and/or symptoms reported regarding the musculoskeletal system. 18:28 General: pt reports abdominal pain for several months, today at about 4pm, she states tl3 that she just didn't feel well, she bent over to get up and with any use of her abdominal muscles the pain is increased, today it is the worst she has felt since her surgery. 19:37 General: Appears in no apparent distress. uncomfortable, Behavior is cooperative, tl3 appropriate for age, anxious. Pain: Complains of pain in left upper quadrant. Neuro: Level of Consciousness is awake, alert, obeys commands, Oriented to person, place, time, situation. Neuro: Reports dizziness. Cardiovascular: Denies chest pain. Respiratory: Airway is patent Respiratory effort is even, unlabored, Respiratory pattern is regular, symmetrical. GI: Abdomen is distended, Reports nausea. : Reports foul smelling urine. Derm: Skin is pink, warm \\T\\ dry. 20:16 Reassessment: Patient appears in no apparent distress at this time. Patient and/or tl3 family updated on plan of care and expected duration. Pain level reassessed. Patient is alert, oriented x 3, equal unlabored respirations, skin warm/dry/pink. Pt verbalized understanding of discharge instructions, need for follow up and prescription usage Patient states feeling better. Vital Signs: 18:10 BP 131 / 71; Pulse 72; Resp 15; Temp 98.0; Pulse Ox 98% on R/A; Weight 68.04 kg; Height aj 5 ft. 6 in. (167.64 cm); 19:36 BP 139 / 109; Pulse 66; Resp 18; Pulse Ox 99% on R/A; tl3 19:54 BP 138 / 98 Supine; Pulse 66; tl3 19:54 BP 146 / 103 Sitting; Pulse 65; tl3 19:54 BP 135 / 102 Standing; Pulse 71; tl3 20:16 BP 138 / 98; Pulse 67; Resp 18; Pulse Ox 98% on R/A; tl3 18:10 Body Mass Index 24.21 (68.04 kg, 167.64 cm) ED Course: 18:04 Patient arrived in ED. mr 18:04 Mert Paul MD is Private Physician. mr 18:10 Triage completed. aj 18:10 Arm band placed on left wrist. Patient placed in an exam room. aj 18:13 Becki Jenkins, RN is Primary Nurse. tl3 18:21 Yamila Maynard FNP-C is PHCP. snw 18:21 Shemar Barrera MD is Attending Physician. snw 18:21 Awaiting ED provider evaluation. tl3 18:21 Patient has correct armband on for positive identification. Bed in low position. Call tl3 light in reach. Side rails up X 1. Adult w/ patient. 18:21 No provider procedures requiring assistance completed. tl3 19:52 Mert Paul MD is Referral Physician. snw 20:16 Patient did not have IV access during this emergency room visit. tl3 Administered Medications: 18:47 Drug: Meclizine 50 mg Route: PO; tl3 19:56 Follow up: Response: No adverse reaction tl3 Outcome: 19:52 Discharge ordered by . snw 20:16 Discharged to home ambulatory, with family. tl3 20:16 Condition: stable 20:16 Discharge instructions given to patient, Instructed on discharge instructions, follow up and referral plans. medication usage, Demonstrated understanding of instructions, follow-up care, medications, Prescriptions given X 1. 20:17 Patient left the ED. tl3 Signatures: Debbi Duckworth, RN RN Yamila Venegas, CAUSTIC OPERATOR-C CAUSTIC OPERATOR-Csnw Isamar Escalante AliceBecki, TACHO RN tl3 Corrections: (The following items were deleted from the chart) 18:28 18:10 PSHx: "double bisectomy"; itzel tl3
[2017-10-06 20:31] VITALS: TEMP 98
[2017-10-06 20:35] VITALS: BP 138/98; O2SAT 98
== END 2017-10-06 20:17 | disposition home or self-care (01) ==
LOC: ER 18:01
DX: R11.2 Nausea with vomiting, unspecified (principal); R42 Dizziness and giddiness; G89.29 Other chronic pain; Z88.5 Allergy status to narcotic agent
CPT/HCPCS: 99283

== ENCOUNTER 2018-07-11 11:11 | Emergency (ER) | payer OTHER ==
--- OUTSIDE RECORDS SUMMARY | 2018-07-11 11:27 | XMS REPORT | Clinical Summary ---
:1975 Author Organization [facility] Address [address] [place] [address] Care Team Providers Name Role Phone Asked, No Pcp Primary Care Provider Unavailable Allergies Active Allergy Reactions Severity Noted Date Comments Adhesive Tape-Silicones Dermatitis High 02/08/2018 Blistered when abdominal bandage left on for a week. Medications Medication Sig Dispensed Refills Start Date End Date Status promethazine Take 25 mg by 0 02/09/2018 Discontinued (PHENERGAN) 25 MG mouth nightly. tablet promethazine Take 1 tablet 10 tablet 0 02/09/2018 02/09/2018 Discontinued (PHENERGAN) 25 MG (25 mg total) tablet by mouth every 6 (six) hours as needed for nausea or vomiting for up to 30 days. promethazine Take 1 tablet 30 tablet 0 02/09/2018 03/11/2018 (PHENERGAN) 25 MG (25 mg total) tablet by mouth nightly for 30 days. Active Problems Problem Noted Date Cervical spondylosis with radiculopathy 02/08/2018 Encounters Date Type Specialty Care Team Description 03/19/2018 Orders Only Orthopedic Surgery Blancas, Rayo, Dysphagia, [place] unspecified type (Primary Dx) 03/18/2018 Orders Only Orthopedic Surgery Blancas, Rayo, Dysphagia, MA unspecified type (Primary Dx) 02/25/2018 Office Visit Orthopedic Surgery Nga Orona, Cervical spondylosis PA-C with radiculopathy (Primary Dx) 02/08/2018 Anesthesia Event General Surgery Rina Dominguez, SONIA 02/08/2018 Surgery General Surgery Konrad Velazquez C4 - C7 ANTERIOR S. CERVICAL DISCECTOMY AND FUSION 02/08/2018 - Hospital Encounter Orthopedic Surgery Konrad Velazquez Cervical 02/09/2018 S. spondylolysis 01/28/2018 Office Visit Orthopedic Surgery Konrad Velazquez Cervical S. radiculopathy (Primary Dx) 01/28/2018 Pre-Admit Testing Pre-Admission Konrad Velazquez Preoperative testing Appointment Testing S. (Primary Dx) 01/22/2018 Refill Orthopedic Surgery Rayo Blancas MA 01/14/2018 Office Visit Orthopedic Surgery Yeyo, Nga, Other spondylosis with radiculopathy, cervical region (Primary Dx); PA-C Neck pain; Fusion of lumbar spine 12/13/2017 Office Visit Orthopedic Surgery Konrad Velazquez Back pain, S. unspecified back location, unspecified back pain laterality, unspecified chronicity (Primary Dx) after 07/10/2017 Immunizations Name Dates Previously Given Next Due FLUCELVAX QUAD PF (0.5mL syringe) 02/09/2018 Family History Medical History Relation Name Comments Diabetes Brother Cancer Father Diabetes Mother Relation Name Status Comments Brother Alive Father Mother Alive Social History Tobacco Use Types Packs/Day Years Used Date Never Smoker Smokeless Tobacco: Never Used Alcohol Use Drinks/Week oz/Week Comments No Alcohol Habits Answer Date Recorded How often do you have a drink containing alcohol? Never 01/28/2018 How many drinks containing alcohol do you have on a typical Not asked day when you are drinking? How often do you have six or more drinks on one occasion? Not asked Sex Assigned at Date Recorded Not on file Job Start Date Occupation Industry Not on file Not on file Not on file Travel History Travel Start Travel End No recent travel history available. Last Filed Vital Signs Vital Sign Reading Time Taken Blood Pressure 139/85 02/09/2018 9:45 AM SENIOR CONSTRUCTION PROJECT MANAGER Pulse 72 02/09/2018 7:50 AM SENIOR CONSTRUCTION PROJECT MANAGER Temperature 37.4 C (99.3 F) 02/09/2018 3:57 AM SENIOR CONSTRUCTION PROJECT MANAGER Respiratory Rate 16 02/09/2018 7:50 AM SENIOR CONSTRUCTION PROJECT MANAGER Oxygen Saturation 96% 02/09/2018 9:45 AM SENIOR CONSTRUCTION PROJECT MANAGER Inhaled Oxygen Concentration - - Weight 71.5 kg (157 lb 9.6 oz) 02/08/2018 6:30 AM SENIOR CONSTRUCTION PROJECT MANAGER Height 165.1 cm (5' 5") 02/08/2018 6:30 AM SENIOR CONSTRUCTION PROJECT MANAGER Body Mass Index 26.23 02/08/2018 6:30 AM SENIOR CONSTRUCTION PROJECT MANAGER Plan of Treatment Health Maintenance Due Date Last Done Comments INFLUENZA VACCINE 09/19/2018 02/09/2018 Implants Implanted Type Area Forensic Materials Engineer Device Shelf Model / Identifier Expiration Serial / Lot Date Tissue [id number] Lasr [id number] Srvc Fee, Ts-Cornerstone L-Asr (Tissue - Cervical Interbody) - [id number] - [id number] [id number] IMPLANT N/A: MEDTRONIC 09/05/2020 [id number] / Implanted: Qty: 1 on 02/08/2018 by Konrad Velazquez DEVICES N/A SOFAMOR DANEK [id number] / [id number] Tissue [id number] Lasr [id number] Srvc Fee, Ts-Cornerstone L-Asr (Tissue - Cervical Interbody) - [id number] - [id number] [id number] IMPLANT N/A: MEDTRONIC 10/23/2020 [id number] / Implanted: Qty: 1 on 02/08/2018 by Konrad Velazquez DEVICES N/A SOFAMOR DANEK [id number] / [id number] Tissue [id number] Lasr [id number] Srvc Fee, Ts-Cornerstone L-Asr (Tissue - Cervical Interbody) - [id number] - [id number] [id number] IMPLANT N/A: MEDTRONIC 10/14/2019 [id number] / Implanted: Qty: 1 on 02/08/2018 by Konrad Velazquez DEVICES N/A SOFAMOR DANEK [id number] / [id number] Plate [id number] Zevo 55mm 3 Lvl - [id number] [id number] IMPLANT N/A: MEDTRONIC [id number] / Implanted: Qty: 1 on 02/08/2018 by Konrad Velazquez DEVICES N/A SOFAMOR DANEK / Screw [id number] Zevo Kory Sd 3.5mm X 15mm - [id number] IPM IMPLANT N/A: MEDTRONIC [id number] / Implanted: Qty: 6 on 02/08/2018 by Konrad Velazquez DEVICES N/A SOFAMOR DANEK / Pin Distrctn [place] 12mm Strl - [id number] Surgical N/A: AESCULAP SPINE 09/18/2022 [id number] / Implanted: Qty: 3 on 02/08/2018 by Konrad Velazquez Implants; N/A / Expanders; [id number] Extenders; Surgical Wires Explanted Type Area Forensic Materials Engineer Device Shelf Model / Identifier Expiration Serial / Lot Date Tissue [id number] Lasr [id number] Srvc Fee, [facility] (Tissue - Cervical Interbody) - [id number] - [id number] [id number] IMPLANT N/A: N/A MEDTRONIC 2020 [id number] / Implanted: 02/08/2018 (Quantity not on file) DEVICES [employer] [id number] / Explanted: Qty: 1 on 02/08/2018 [id number] Procedures Procedure Name Priority Date/Time Associated Diagnosis Comments XR CERVICAL SPINE 2 Routine 02/25/2018 9:58 Cervical spondylosis Results for this OR 3 VW AM SENIOR CONSTRUCTION PROJECT MANAGER with radiculopathy procedure are in the results section. SURGICAL PATHOLOGY Routine 02/08/2018 1:11 Results for this REQUEST PM SENIOR CONSTRUCTION PROJECT MANAGER procedure are in the results section. XR CERVICAL SPINE 1 Routine 02/08/2018 11:08 Results for this VW AM SENIOR CONSTRUCTION PROJECT MANAGER procedure are in the results section. XR CERVICAL SPINE 1 Routine 02/08/2018 11:07 Results for this VW AM SENIOR CONSTRUCTION PROJECT MANAGER procedure are in the results section. XR CERVICAL SPINE 1 Routine 02/08/2018 9:30 Results for this VW AM SENIOR CONSTRUCTION PROJECT MANAGER procedure are in the results section. NE AN ELECTIVE Routine 02/08/2018 9:08 ENDOTRACHEAL AIRWAY AM SENIOR CONSTRUCTION PROJECT MANAGER Procedure Note - Issa Rubin MD - 02/08/2018 9:08 AM SENIOR CONSTRUCTION PROJECT MANAGER ANESTHESIA INTUBATION Date/Time: 02/08/2018 9:08 AM Performed by: Hermann Beyer MD Authorized by: Issa Rubin MD Location: OR Urgency: Elective Difficult Airway: No Resident/GEAR SHAVER SET UP OPERATOR/AA: Hermann Beyer MD Preoxygenated with 100% O2: Yes C-spine Precautions Maintained Throughout: No Mask Ventilation: Easy mask Final Airway Type: Endotracheal airway Final Endotracheal Airway: ETT Cuffed: Yes Technique Used: Direct laryngoscopy Devices/Methods Used in Placement: Intubating stylet Insertion Site: Oral Blade Type: Alvarado Laryngoscope Blade/Videolaryngoscope Blade Size: 2 ETT Size (mm): 7.0 Cuff at minimum occlusion pressure: Yes Measured from: Teeth ETT to Teeth (cm): 20 Placement Verified by: CO2 detection, direct visualization and equal breath sounds Laryngoscopic view: Grade IIa - partial view of glottis Rapid Sequence Induction (RSI): No Modified RSI: No Number of Attempts at Approach: 1 DISCECTOMY, CERVICAL, WITH FUSION, 02/08/2018 8:10 AM SENIOR CONSTRUCTION PROJECT MANAGER Cervical spondylolysis ANTERIOR APPROACH Case Notes POSSIBLE EXTENDED STAY, NO MONITORING, DART X-RAY (REGULAR) Special Needs EST 5 HOURS, POSSIBLE EXTENDED STAY, SUPINE POSITION, DART X-RAY (REGULAR), NO MONITORING, DOM, DB DRAIN, REGULAR BED, CORTICOCANCELLOUS ANTERIOR CERVICAL SPACER ( CCACF) , CORNERSTONE LASR ALLOGRAFT MEDTRONIC, MEDTRONIC ZERO ANTERIOR CERVICAL PLATE SYSTEM WITH CORNERSTONE LASR ALLOGRAFT ECG 12-LEAD Routine 01/28/2018 2:14 Preoperative testing Results for this PM SENIOR CONSTRUCTION PROJECT MANAGER procedure are in the results section. ESTIMATED GFR Routine 01/28/2018 2:06 Results for this PM SENIOR CONSTRUCTION PROJECT MANAGER procedure are in the results section. TYPE AND SCREEN Routine 01/28/2018 2:06 Preoperative testing Results for this PM SENIOR CONSTRUCTION PROJECT MANAGER procedure are in the results section. PROTHROMBIN TIME WITH Routine 01/28/2018 2:06 Preoperative testing Results for this INR PM SENIOR CONSTRUCTION PROJECT MANAGER procedure are in the results section. PARTIAL THROMBOPLASTIN Routine 01/28/2018 2:06 Preoperative testing Results for this TIME (PTT) PM SENIOR CONSTRUCTION PROJECT MANAGER procedure are in the results section. COMPREHENSIVE Routine 01/28/2018 2:06 Preoperative testing Results for this METABOLIC PANEL PM SENIOR CONSTRUCTION PROJECT MANAGER procedure are in the results section. CBC HEMOGRAM Routine 01/28/2018 2:06 Preoperative testing Results for this PM SENIOR CONSTRUCTION PROJECT MANAGER procedure are in the results section. MRI CERVICAL SPINE WO Routine 12/24/2017 1:03 Back pain, Results for this CONTRAST PM SENIOR CONSTRUCTION PROJECT MANAGER unspecified back procedure are in location, the results unspecified back section. pain laterality, unspecified chronicity XR SPINE SCOLIOSIS 2-3 Routine 12/13/2017 3:00 Back pain, Results for this VIEWS PM CDT unspecified back procedure are in location, the results unspecified back section. pain laterality, unspecified chronicity after 07/10/2017 Results XR Cervical Spine 2 Or 3 Vw (02/25/2018 9:58 AM SENIOR CONSTRUCTION PROJECT MANAGER) Specimen Narrative Performed At PA and lateral view of the cervical spine are reviewed today.She has HM RADIANT anterior cervical instrumentation in place C4 through C7 with anterior cervical plate construct and interbody corticocancellous spacers.All instrumentation is in good position with good restorationism of her interbody heights.Overall improved cervical spine lordosis compared with preoperatively, now with approximately 8 degrees of lordosis through the instrumented segments.Well-preserved disc spaces above and below fusion. Performing Organization Address City/[facility]/Zipcode Phone Number [facility] [address] [place] [address] Surgical pathology request (02/08/2018 1:11 PM SENIOR CONSTRUCTION PROJECT MANAGER) [facility] DEPARTMENT OF PATHOLOGY AND GENOMIC MEDICINE Surgical pathology See link below [facility] DEPARTMENT OF report for PDF Lab PATHOLOGY AND Report GENOMIC MEDICINE Result status This is Final [facility] DEPARTMENT OF Report for PATHOLOGY AND [id number] GENOMIC MEDICINE Specimen Performing Organization Address [facility]/Zipcode Phone Number [facility] DEPARTMENT OF PATHOLOGY AND [address] [place] [address] GENOMIC MEDICINE XR Cervical Spine 1 Vw (02/08/2018 11:08 AM SENIOR CONSTRUCTION PROJECT MANAGER)Only the most recent of3 resultswithin the time period is included. Specimen Narrative Performed At EXAMINATION:XR CERVICAL SPINE 1 VW [facility] CLINICAL HISTORY: IMPRESSION: There is anterior interbody fusion of the cervical spine in progress with the plate and screws extending from C4 to C7. Intervertebral disc grafts are seen at C4-C5, C5-6 and C6-C7 level. [id number] Procedure Note [facility], Radiology Results Incoming - 02/08/2018 6:16 PM SENIOR CONSTRUCTION PROJECT MANAGER EXAMINATION: XR CERVICAL SPINE 1 VW CLINICAL HISTORY: IMPRESSION: There is anterior interbody fusion of the cervical spine in progress with the plate and screws extending from C4 to C7. Intervertebral disc grafts are seen at C4-C5, C5-6 and C6-C7 level. [id number] Performing Organization Address [facility]/Zipcode Phone Number [facility] [address] [place] [address] ECG 12 lead (01/28/2018 2:14 PM SENIOR CONSTRUCTION PROJECT MANAGER) Ventricular rate 69 [facility] Atrial rate 69 [facility] NE interval 138 [facility] QRSD interval 100 [facility] QT interval 410 [facility] QTC interval 439 [facility] P axis 1 76 [facility] QRS axis 1 62 [facility] T wave axis 62 [facility] EKG impression Normal sinus rhythm-Possible Left atrial enlargement- Incomplete right bundle branch block-Borderline ECG-In automated comparison with ECG of 03-JUN-2013 15:58,-No significant change was found-Electronic [facility] MUSE ally Signed By Yobany Young ([id number]) on 01/29/2018 8:55:51 PM Specimen Narrative Performed At Performing Organization Address City/State/Zipcode Phone Number [facility] MUSE [address] [place] [address] Estimated GFR (01/28/2018 2:06 PM SENIOR CONSTRUCTION PROJECT MANAGER) [facility] Estimated GFR >=90 mL/min/1.73 [facility] Comment: [address] CatergoryUnitsInterpretation G1 >=90 Normal or high G2 60-89Mildly decreased [id number] to moderately decreased X6e61-42Apkdragamx to severely decreased G4 15-29Severely decreased G5 <15Kidney failure The eGFR was calculated using the Chronic Kidney Disease Epidemiology Collaboration (CKD-EPI) equation. Interpretation is based on recommendations of the National Kidney Foundation-Kidney Disease Outcomes Quality Initiative (NKF-KDOQI) published in 2014. Specimen Plasma specimen Performing Organization Address City/[facility]/Zipcode Phone Number [facility] DEPARTMENT OF PATHOLOGY AND [address] [place] [phone] [address] Partial thromboplastin time, activated (01/28/2018 2:06 PM SENIOR CONSTRUCTION PROJECT MANAGER) [facility] PTT 22.5 (L) 23.0 - 36.0 [facility] Comment: [facility] PTT therapeutic range for unfractionated heparin is 61.0-112.0 seconds which corresponds to Anti-Xa 0.3-0.7 U/ml. Specimen Blood Performing Organization Address City/[facility]/Zipcode Phone Number [facility] DEPARTMENT OF PATHOLOGY AND [address] [place] [phone] [address] Prothrombin time with INR (01/28/2018 2:06 PM SENIOR CONSTRUCTION PROJECT MANAGER) [facility] Prothrombin time 11.7 11.5 - 14.5 [facility] INR 0.9 [facility] Comment: [facility] The International Normalized Ratio (INR) is a therapeutic HOSPITAL monitoring tool for patients who are stable on oral anticoagulant therapy. An INR of 2.0-3.0 is suggested for deep vein thrombosis/pulmonary embolism. Specimen Blood Performing Organization Address City/State/Zipcode Phone Number [facility] DEPARTMENT OF PATHOLOGY AND [address] [place] [phone] CBC hemogram (01/28/2018 2:06 PM SENIOR CONSTRUCTION PROJECT MANAGER) WBC 8.52 4.50 - 11.00 k/uL [facility] RBC 4.78 4.20 - 5.50 m/uL [facility] HGB 13.9 12.0 - 16.0 g/dL [facility] HCT 41.9 37.0 - 47.0 % [facility] MCV 87.7 82.0 - 100.0 fL [facility] MCH 29.1 27.0 - 34.0 pg [facility] MCHC 33.2 31.0 - 37.0 g/dL [facility] RDW - SD 43.1 37.0 - 55.0 fL [facility] MPV 11.3 8.8 - 13.2 fL [facility] Platelet count 174 150 - 400 k/uL [facility] Nucleated RBC 0.00 /100 WBC [facility] Specimen Blood Performing Organization Address City/[facility] Phone Number [facility] DEPARTMENT OF PATHOLOGY AND [address] [place] [phone] Type and screen (01/28/2018 2:06 PM SENIOR CONSTRUCTION PROJECT MANAGER) Pathologist [facility] ABO grouping O [facility] Rh type NEG [facility] Antibody screen (gel) NEG [facility] Specimen Blood Performing Organization Address City/State/Zipcode Phone Number [facility] DEPARTMENT OF PATHOLOGY AND [address] [place] [phone] Comprehensive metabolic panel (01/28/2018 2:06 PM SENIOR CONSTRUCTION PROJECT MANAGER) Sodium 142 135 - 148 [facility] mEq/L [facility] Potassium 3.8 3.5 - 5.0 [facility] mEq/L [facility] Chloride 103 98 - 112 mEq/L [facility] CO2 23 (L) 24 - 31 mEq/L [facility] Anion gap 16@ANIO (H) 7 - 15 mEq/L [facility] BUN 13 6 - 20 mg/dL [facility] Creatinine 0.71 0.50 - 0.90 [facility] mg/dL HOSPITAL Glucose 81 65 - 99 mg/dL [facility] Calcium 9.6 8.3 - 10.2 [facility] mg/dL [facility] Protein 7.4 6.3 - 8.3 g/dL [facility] Comment: HOSPITAL 4.6-7.0 g/dL 1 week 4.4-7.6 g/dL 7 months-1year5.1-7.3 g/dL 1-2 years5.6-7.5 g/dL >3 years6.0-8.0 g/dL 18-150 6.3-8.3 g/dL Albumin 3.9 3.5 - 5.0 g/dL [facility] A/G ratio 1.1 0.7 - 3.8 [facility] Alkaline phosphatase 86 35 - 104 U/L [facility] AST 22 10 - 35 U/L [facility] ALT 25 5 - 50 U/L [facility] Total bilirubin <0.2 0.0 - 1.2 [facility] mg/dL HOSPITAL Specimen Plasma specimen Performing Organization Address City/State/Zipcode Phone Number [facility] DEPARTMENT OF PATHOLOGY AND [address] [place] [address] GENOMIC MEDICINE [facility] [address] [place] [phone] MRI Cervical Spine Wo Contrast (12/24/2017 1:03 PM SENIOR CONSTRUCTION PROJECT MANAGER) Specimen Narrative Performed At EXAMINATION: MRI CERVICAL SPINE WO CONTRAST [facility] CLINICAL HISTORY: M54.9 Dorsalgiaunspecified, C-spine stenosis COMPARISON:None TECHNIQUE: Multiplanar multisequence noncontrast enhanced examination was performed of the cervical spine. FINDINGS: There is reversal of cervical lordosis, however no subluxation identified. No abnormal marrow edema. Vertebral body heights are preserved. No developmental narrowing. No suspicious osseous lesion. No degenerative marrow changes. The cervicomedullary junction is normal in appearance. No spinal cord signal abnormality. No prevertebral edema or neck mass identified. No cervical lymphadenopathy identified. Major vascular flow voids are present. Axial images through the disc spaces demonstrate the following: C1-C2: No significant spinal canal stenosis. C2-C3: No significant posterior disc disease, spinal canal, subarticular zone, or neural foraminal stenosis. C3-C4: No significant posterior disc disease, spinal canal, subarticular zone, or neural foraminal stenosis. C4-C5: No significant posterior disc disease, spinal canal, subarticular zone, or neural foraminal stenosis. C5-C6: Disc desiccation with mild circumferential disc bulge which indents the ventral thecal sac and results in moderate central canal stenosis when combined with kyphotic deformity, image 24 of series 5. Marked bilateral neural foraminal narrowing secondary to degenerative uncovertebral and facet hypertrophy. C6-C7: Disc desiccation with mild circumflex frontal disc bulge which indents the ventral thecal sac and results in mild central canal and bilateral neural foraminal narrowing. C7-T1: No significant posterior disc disease, spinal canal, subarticular zone, or neural foraminal stenosis. IMPRESSION: Multilevel degenerative changes of the cervical spine as detailed above, most pronounced at C5-C6 where there is moderate central canal and marked bilateral neural foraminal stenosis secondary to bulging disc material and cervical kyphosis. [id number] Procedure Note Hm Interface, Radiology Results Incoming - 12/24/2017 1:12 PM SENIOR CONSTRUCTION PROJECT MANAGER EXAMINATION: MRI CERVICAL SPINE WO CONTRAST CLINICAL HISTORY: M54.9 Dorsalgia unspecified, C-spine stenosis COMPARISON: None TECHNIQUE: Multiplanar multisequence noncontrast enhanced examination was performed of the cervical spine. FINDINGS: There is reversal of cervical lordosis, however no subluxation identified. No abnormal marrow edema. Vertebral body heights are preserved. No developmental narrowing. No suspicious osseous lesion. No degenerative marrow changes. The cervicomedullary junction is normal in appearance. No spinal cord signal abnormality. No prevertebral edema or neck mass identified. No cervical lymphadenopathy identified. Major vascular flow voids are present. Axial images through the disc spaces demonstrate the following: C1-C2: No significant spinal canal stenosis. C2-C3: No significant posterior disc disease, spinal canal, subarticular zone, or neural foraminal stenosis. C3-C4: No significant posterior disc disease, spinal canal, subarticular zone, or neural foraminal stenosis. C4-C5: No significant posterior disc disease, spinal canal, subarticular zone, or neural foraminal stenosis. C5-C6: Disc desiccation with mild circumferential disc bulge which indents the ventral thecal sac and results in moderate central canal stenosis when combined with kyphotic deformity, image 24 of series 5. Marked bilateral neural foraminal narrowing secondary to degenerative uncovertebral and facet hypertrophy. C6-C7: Disc desiccation with mild circumflex frontal disc bulge which indents the ventral thecal sac and results in mild central canal and bilateral neural foraminal narrowing. C7-T1: No significant posterior disc disease, spinal canal, subarticular zone, or neural foraminal stenosis. IMPRESSION: Multilevel degenerative changes of the cervical spine as detailed above, most pronounced at C5-C6 where there is moderate central canal and marked bilateral neural foraminal stenosis secondary to bulging disc material and cervical kyphosis. [id number] Performing Organization Address City/[facility] Cent[facility]ode Phone Number [employer] [address] [place] [address] XR Spine Scoliosos 2-3 Views (12/13/2017 3:00 PM CDT) Specimen Narrative Performed At IncludePA and lateral of the entire spine. They show she has HM [facility] instrumentation in place from L4 to the sacrum. She has a very solid fusion from L4 to the sacrum. Looking at her cervical spine, she does have spondylitic changes from C4-C7 with anterior and posterior osteophytes at all 3 levels. Performing Organization Address City/[facility]/[employer]code Phone Number [employer] [facility] [address] [place] [address] after 07/10/2017 Insurance Payer Benefit Plan / Subscriber ID Effective Dates Phone Address Type [facility] [employer] [facility] xxxxxxxxx 2017-Present HMO CHOICE [facility] Advance Directives Patient has advance care planning documents on file. For more information, please contact:Zhang Jones[address] [place] [address]
--- OUTSIDE RECORDS SUMMARY | 2018-07-11 11:27 | XMS REPORT | Clinical Summary ---
:[address] [facility] Address [address] [place] [address] Care Team Providers Name Role Phone Beverly Mert Phu Primary Care Provider Beverly Mert [place] Unavailable Allergies No Known Allergies Medications Medication Sig Dispensed Refills Start Date End Date Status ibuprofen Take 200 mg by 0 Active (ADVIL,MOTRIN) 200 MG mouth every 6 tablet (six) hours as needed for Pain. Active Problems Not on file Encounters Date Type Specialty Care Team Description 04/16/2018 Hospital Encounter Radiology Nuñez, Suneal Epigastric abdominal pain; MD Navjot Constipation, unspecified constipation type 04/16/2018 Outside Orders Central Scheduling Nuñez, Suneal Epigastric abdominal pain (Primary Dx); MD Navjot Constipation, unspecified constipation type after 07/10/2017 Social History Tobacco Use Types Packs/Day Years Used Date Never Smoker Alcohol Use Drinks/Week oz/Week Comments Yes 1 per 3 months Sex Assigned at Date Recorded Not on file Job Start Date Occupation Industry Not on file Not on file Not on file Travel History Travel Start Travel End No recent travel history available. Last Filed Vital Signs Not on file Plan of Treatment Not on file Procedures Procedure Name Priority Date/Time Associated Diagnosis Comments XR ABDOMEN 1 VIEW Routine 04/16/2018 2:24 PM Epigastric abdominal Results for this [facility] pain procedure are in Constipation, the results unspecified section. constipation type after 07/10/2017 Results XR abdomen / KUB 1 view (04/16/2018 2:24 PM [facility]) Specimen Narrative Performed At FINAL REPORT GE RIS Exam:Abdominal radiograph History:Constipation Comparison: None. Findings: Nonobstructive bowel gas pattern. Mild amount retained stool. Multiple surgical clips. Impression: No acute osseous abnormality Mild amount of retained stool Signed: Luisito Shafer MD Report Verified Date/Time:04/16/2018 16:12:35 Procedure Note Interface, External Ris In - 04/16/2018 4:14 PM [facility] FINAL REPORT Exam: Abdominal radiograph History: Constipation Comparison: None. Findings: Nonobstructive bowel gas pattern. Mild amount retained stool. Multiple surgical clips. Impression: No acute osseous abnormality Mild amount of retained stool Signed: Luisito Shafer MD Report Verified Date/Time: 04/16/2018 16:12:35 Performing Organization Address City/State/Zipcode Phone Number [facility] after 07/10/2017 Insurance Payer Benefit Plan / Subscriber ID Type Phone Address Group MEDICAID - MEDICAID MEDICAID [facility] xxxxxxxxx Medicaid Contracted [facility] [employer] MEDICAID [place]ICA[place] xxxxxxxxx Medicaid
--- OUTSIDE RECORDS SUMMARY | 2018-07-11 11:28 | XMS REPORT ---
:1975 Author Organization [employer] Care Team Providers Name Role Phone Jerod Valles Provider Role Unavailable Allergies No Known Allergies Problems No Known Problems Medications No Known Medications Results No Known Results Summary Purpose eClinicalWorks Submission
--- OUTSIDE RECORDS SUMMARY | 2018-07-11 11:28 | XMS REPORT ---
:1975 Author Organization [facility] Address [address] [place] [address] Dr. Galindo [address] [place] [id number] Care Team Providers Name Role Phone Unavailable Unavailable Unavailable Problems This patient has no known problems. Allergies, Adverse Reactions, Alerts This patient has no known allergies or adverse reactions. Medications This patient has no known medications. Encounters Start End Encounter Admission Attending Care Care Encounter Date/Time Date/Time Type Type Clinicians Facility Department ID 2016-12-11 Inpatient [facility] [id number] 19:13:58 2016-11-22 Inpatient [facility] [id number] 15:22:01 2016-11-21 Inpatient [facility] [id number] 01:48:38 2016-11-21 Inpatient [facility] [id number] 01:48:30 2016-11-20 Inpatient [facility] [id number] 05:55:00 2018-04-03 2018-04-03 Outpatient [facility] [id number] 00:00:00 00:00:00 2018-01-09 2018-01-09 Outpatient [facility] [id number] 00:00:00 00:00:00 2017-12-26 2017-12-26 Outpatient [facility] [id number] 00:00:00 00:00:00 2017-12-25 2017-12-25 Outpatient [facility] [id number] 00:00:00 00:00:00 2017-11-21 2017-11-21 Outpatient [facility] [id number] 12:12:10 12:12:10 2017-11-16 2017-11-16 Outpatient [facility] [id number] 08:30:23 08:30:23 2017-11-12 2017-11-12 Outpatient [facility] [id number] 00:00:00 00:00:00 2017-11-08 2017-11-08 Outpatient [facility] [id number] 00:00:00 00:00:00 2017-10-11 2017-10-11 Outpatient [facility] [id number] 09:34:54 09:34:54 2017-10-10 2017-10-10 Outpatient [facility] [id number] 00:00:00 00:00:00 2017-10-03 2017-10-03 Outpatient [facility] [id number] 00:00:00 00:00:00 2017-09-28 2017-09-28 Outpatient [facility] [id number] 06:43:36 06:43:36 2017-09-28 2017-09-28 Outpatient [facility] [id number] 00:00:00 00:00:00 2017-09-28 2017-09-28 Outpatient [facility] [id number] 00:00:00 00:00:00 2017-09-26 2017-09-26 Outpatient [facility] [id number] 13:42:42 13:42:42 2017-09-26 2017-09-26 Outpatient [facility] [id number] 00:00:00 00:00:00 2017-09-21 2017-09-21 Outpatient [facility] [id number] 00:00:00 00:00:00 2017-09-19 2017-09-19 Outpatient [facility] [id number] 14:50:01 14:50:01 2017-09-19 2017-09-19 Outpatient [facility] [id number] 13:16:35 13:16:35 2017-09-12 2017-09-12 Outpatient [facility] [id number] 00:00:00 00:00:00 2017-08-24 2017-08-24 Outpatient [facility] [id number] 09:22:38 09:22:38 2017-07-27 2017-07-27 Outpatient [facility] [id number] 10:35:47 10:35:47 2017-07-05 2017-07-05 Outpatient [facility] [id number] 12:15:23 12:15:23 2017-07-03 2017-07-03 Outpatient [facility] [id number] 00:00:00 00:00:00 2017-05-23 2017-05-23 Outpatient [facility] [id number] 13:13:44 13:13:44 2017-05-02 2017-05-02 Outpatient [facility] [id number] 00:00:00 00:00:00 2017-04-25 2017-04-25 Outpatient [facility] [id number] 09:01:53 09:01:53 2017-04-17 2017-04-17 Outpatient [facility] [id number] 06:05:00 06:05:00 2017-04-17 2017-04-17 Outpatient [facility] [id number] 00:00:00 00:00:00 2017-04-16 2017-04-16 Outpatient [facility] [id number] 00:00:00 00:00:00 2017-04-13 2017-04-13 Outpatient [facility] [id number] 09:12:04 09:12:04 2017-04-03 2017-04-03 Outpatient [facility] [id number] 00:00:00 00:00:00 2017-03-27 2017-03-27 Outpatient [facility] [id number] 06:15:00 06:15:00 2017-03-27 2017-03-27 Outpatient [facility] [id number] 00:00:00 00:00:00 2017-03-19 2017-03-19 Outpatient [facility] [id number] 13:22:16 13:22:16 2017-03-19 2017-03-19 Outpatient [facility] [id number] 00:00:00 00:00:00 2017-03-12 2017-03-12 [facility] [id number] 13:45:55 13:45:55 2017-03-09 2017-03-09 Outpatient [facility] [id number] 00:00:00 00:00:00 2017-03-08 2017-03-08 Outpatient [facility] [id number] 16:03:22 16:03:22 2017-03-08 2017-03-08 Outpatient [facility] [id number] 14:45:05 14:45:05 2017-02-23 2017-02-23 [facility] [id number] 10:41:02 10:41:02 2017-02-23 2017-02-23 [facility] [id number] 08:11:53 08:11:53 2017-02-23 2017-02-23 [facility] [id number] 07:53:43 07:53:43 2017-02-23 2017-02-23 Outpatient [facility] [id number] 00:00:00 00:00:00 2017-02-08 2017-02-08 [facility] [id number] 12:32:00 12:32:00 2017-01-24 2017-01-24 [facility] [id number] 00:00:00 00:00:00 2017-01-23 2017-01-23 Outpatient [facility] [id number] 12:16:30 12:16:30 2017-01-22 2017-01-22 Outpatient [facility] [id number] 11:30:20 11:30:20 2017-01-15 2017-01-15 Outpatient [facility] [id number] 00:00:00 00:00:00 2017-01-09 2017-01-09 Outpatient [facility] [id number] 09:09:26 09:09:26 2017-01-04 2017-01-04 Outpatient [facility] [id number] 14:36:02 14:36:02 2017-01-02 2017-01-02 [facility] [id number] 08:36:10 08:36:10 2016-12-27 2016-12-27 Outpatient [facility] [id number] 11:33:15 11:33:15 2016-12-22 2016-12-22 Outpatient [facility] [id number] 09:02:45 09:02:45 2016-12-11 2016-12-11 Outpatient [facility] [id number] 09:01:19 09:01:19 2016-12-11 2016-12-[address] [facility] [id number] 14:16:44 00:00:00 2016-12-07 2016-12-07 Outpatient [facility] [id number] 00:00:00 00:00:00 2016-12-06 2016-12-06 Outpatient [facility] [id number] 14:40:31 14:40:31 2016-12-04 2016-12-04 Outpatient [facility] [id number] 10:31:01 10:31:01 2016-11-27 2016-11-27 Outpatient [facility] [id number] 00:00:00 00:00:00 2016-11-20 2016-11-20 Outpatient [facility] [id number] 00:00:00 00:00:00 2016-11-20 2016-11-20 Outpatient [facility] [id number] 00:00:00 00:00:00 2016-11-17 2016-11-17 Outpatient [facility] [id number] 00:00:00 00:00:00 2016-10-12 2016-10-12 Outpatient [facility] [id number] 00:00:00 00:00:00 2016-10-10 2016-10-10 Outpatient [facility] [id number] 00:00:00 00:00:00 2016-10-10 2016-10-10 Outpatient [facility] [id number] 00:00:00 00:00:00 2016-10-10 2016-10-10 Outpatient [facility] [id number] 00:00:00 00:00:00 2016-09-15 2016-09-15 Outpatient [facility] [id number] 00:00:00 00:00:00 2016-08-30 2016-08-30 Outpatient [facility] [id number] 09:44:27 09:44:27 Results Test Description Test Time Test Comments Text Results Atomic Results Result Comments RAD, ABDOMEN/KUB, 1 2018-04-16 Reason for FINAL REPORT PATIENT VIEW AP 16:12:00 Exam:->epigastric abdominal ID: [id number] painReason for Exam: Abdominal Exam:->constipation, radiograph History: unspecified constipation Constipation type Comparison: None. Findings: Nonobstructive bowel gas pattern. Mild amount retained stool. Multiple surgical clips. Impression: No acute osseous abnormality Mild amount of retained stool Signed: Luisito Shafer MDRort Verified Date/Time: 04/16/2018 16:12:35
--- OUTSIDE RECORDS SUMMARY | 2018-07-11 11:28 | XMS REPORT ---
:1975 Author Organization eClinicalWorks Care Team Providers Name Role Phone Jerod Valles Provider Role Unavailable Allergies, Adverse Reactions, Alerts Substance Reaction Event Type N.K.D.A. 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
--- OUTSIDE RECORDS SUMMARY | 2018-07-11 11:28 | XMS REPORT ---
:1975 Author Organization [employer] Care Team Providers Name Role Phone Jerod Valles Provider Role Unavailable Allergies, Adverse Reactions, Alerts Substance Reaction Event Type N.K.D.A. 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
--- OUTSIDE RECORDS SUMMARY | 2018-07-11 11:28 | XMS REPORT ---
:1975 Author Organization [employer]Clinical[employer] Care Team Providers Name Role Phone Jerod Valles Provider Role Unavailable Allergies, Adverse Reactions, Alerts Substance Reaction Event Type N.K.D.A. Info Not Available Non Drug Allergy Problems Problem Type Condition Code Onset Dates Condition Status Assessment Pain, joint, shoulder, left M25.512 Active Assessment Tear of left rotator cuff, M75.102 Active unspecified tear extent Medications Medication Code System Code Instructions Start Date End Date Status Dosage Phenergan [facility] [address]-373 25mg Po Q 12 Oct 29, Active one tablet 3-01 hours 2017 Results No Known Results Summary Purpose eClinicalWorks Submission
--- NOTE | 2018-07-11 12:23 | RAD REPORT ---
EXAM DESCRIPTION: CT - Head Brain Wo Cont - 07/11/2018 12:11 pm CLINICAL HISTORY: Headache COMPARISON: None. TECHNIQUE: Axial 5 mm thick images of the head were obtained without IV contrast. All CT scans are performed using dose optimization technique as appropriate and may include automated exposure control or mA/KV adjustment according to patient size. FINDINGS: No intracranial hemorrhage, mass, edema or shift of mid-line structures. No acute infarcti on changes seen. No abnormal extra-axial fluid collections. Ventricles are normal. Mastoid air cells and visualized portions of the paranasal sinuses are clear. No acute bony findings. IMPRESSION: Negative non-contrast CT head examination.
[2018-07-11] MEDS ORDERED: NA CHLORIDE 0.9% 1,000 ML ONE (12:25)
[2018-07-11] MEDS ORDERED: DIPHENHYDRAMINE 50 MG/ML VIAL ONE (12:25)
[2018-07-11] MEDS ORDERED: NA CHLORIDE 0.9% 100 ML IV ONE (12:25)
[2018-07-11] MEDS ORDERED: METOCLOPRAMIDE 10 MG/2mL INJ ONE (12:25)
[2018-07-11 12:28] LABS: Absolute Lymphocytes (CBC) 1.8 K/uL (0.7-4.9); Absolute Monocytes 0.5 K/uL (0.1-1.3); Absolute Neutrophil 3.7 K/uL (1.8-8.0); Basophils % 0.5 % (0-1.3); Eosinophils % 1.9 % (0-4.4); Hematocrit 41.5 % (36.0-45.0); Lymphocytes % 28.8 % (15.3-44.8); Monocytes % 8.5 % (3.3-12.3); RBC Red Blood Cell Count 4.96 M/uL (3.86-4.86)
[2018-07-11 13:11] LABS: Albumin 4.1 g/dL (3.4-5.0); Bilirubin Total 0.4 mg/dL (0.2-1.0); Potassium 3.8 mmol/L (3.5-5.1)
--- NOTE | 2018-07-11 14:15 | ER ---
Nurse's Notes [facility] Name: Mildred Caldwell Age: 42 yrs Sex: Female : 1975 Arrival Date: 07/11/2018 Time: 11:14 Bed 17 Private MD: Mert Paul E Diagnosis: Headache Presentation: 07/11 11:22 Presenting complaint: Patient states: after i dropped my kids off i laid down, and then tw2 when i got up my head just started throbbing, my whole entire head, i have felt this way before but it has been a long time ago and i am feeling nauseous, its pressure and squeezing and throbbing pain all over my head. Transition of care: patient was not received from another setting of care. Onset of symptoms was July 11, 2018. Risk Assessment: Do you want to hurt yourself or someone else? Patient reports no desire to harm self or others. Initial Sepsis Screen: Does the patient meet any 2 criteria? No. Patient's initial sepsis screen is negative. Does the patient have a suspected source of infection? No. Patient's initial sepsis screen is negative. Care prior to arrival: None. 11:22 Method Of Arrival: Ambulatory tw2 11:22 Acuity: JENNIFER 3 tw2 Triage Assessment: 11:24 Headache History: The patient has had previous headaches and this one is similar to tw2 previous episodes, and this one is more severe than previous episodes. General: Appears uncomfortable, Behavior is crying. Pain: Complains of pain in head Pain currently is 10 out of 10 on a pain scale. Pain began 4 hours ago. Also complains of nausea. Neuro: Level of Consciousness is awake, alert, obeys commands, Oriented to person, place, time, situation. 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 - Social history:: Smoking status: . - Ebola Screening: : Patient denies travel to an Ebola-affected area in the 21 days before illness onset. Screenin:39 Abuse screen: Denies threats or abuse. Denies injuries from another. Nutritional ls4 screening: No deficits noted. Tuberculosis screening: No symptoms or risk factors identified. Fall Risk None identified. Assessment: 11:30 Pain: Complains of pain in head Pain currently is 10 out of 10 on a pain scale. Neuro: ls4 Reports headache in entire. 13:05 Reassessment: Patient and/or family updated on plan of care and expected duration. Pain ls4 level reassessed. Patient is alert, oriented x 3, equal unlabored respirations, skin warm/dry/pink. Patient states feeling better. Patient states symptoms have improved. Neuro: No deficits noted. Respiratory: Respiratory effort is even, unlabored, Respiratory pattern is regular. Vital Signs: 11:26 BP 136 / 88; Pulse 81; Resp 18; Temp 97.8(TE); Pulse Ox 100% on R/A; Weight 70.31 kg tw2 (R); Height 5 ft. 4 in. (162.56 cm); Pain 10/10; 13:06 BP 134 / 86; Pulse 62; Resp 16; Temp 98.0; Pulse Ox 99% on R/A; Pain 5/10; ls4 14:22 BP 124 / 88; Pulse 58; Resp 16; Pulse Ox 99% on R/A; Pain 3/10; ls4 11:26 Body Mass Index 26.61 (70.31 kg, 162.56 cm) tw2 ED Course: 11:14 Patient arrived in ED. mr 11:14 Mert Paul MD is Private Physician. mr 11:24 Triage completed. tw2 11:25 Arm band placed on. tw2 11:28 Manfred Anaya PA is PHCP. [facility] 11:28 Tre Charles MD is Attending Physician. jm 11:29 Delmar Gresham, TACHO is Primary Nurse. bp 11:30 diabetologist on. Pulse ox on. NIBP on. Warm blanket given. Verbal reassurance given. ls4 11:39 Patient has correct armband on for positive identification. Bed in low position. Call ls4 light in reach. Side rails up X 1. 11:39 No provider procedures requiring assistance completed. ls4 12:05 CT completed. Patient tolerated procedure well. Patient moved to CT via wheelchair. Patient moved back from CT. 12:09 Initial lab(s) drawn, by me, sent to lab. Inserted saline lock: 22 gauge in left ls4 forearm, using aseptic technique. Blood collected. 12:10 CT Head Brain wo Cont In Process Unspecified. EDMS 14:14 Black Daniel MD is Referral Physician. jmm 14:23 IV discontinued, intact, bleeding controlled, No redness/swelling at site. Pressure ls4 dressing applied. Administered Medications: 12:20 Drug: NS 0.9% 1000 ml Route: IV; Rate: 1 bolus; Site: left forearm; ls4 13:44 Follow up: IV Status: Completed infusion; IV Intake: 1000ml ls4 12:20 Drug: Reglan 10 mg Route: IVP; Site: left forearm; ls4 12:48 Follow up: Response: No adverse reaction; Marked relief of symptoms ls4 12:20 Drug: diphenhydrAMINE 12.5 mg Route: IVP; Site: left forearm; ls4 12:48 Follow up: Response: No adverse reaction; Marked relief of symptoms ls4 Intake: 13:44 IV: 1000ml; Total: 1000ml. ls4 Outcome: 14:14 Discharge ordered by . jmm 14:40 Discharged to home ambulatory. ls4 14:40 Condition: good 14:40 Discharge instructions given to patient, Instructed on discharge instructions, follow up and referral plans. medication usage, Demonstrated understanding of instructions, follow-up care, medications, Prescriptions given X 14:41 Patient left the ED. ls4 Signatures: Dispatcher [employer] EDMS Manfred Anaya PA PA jmm Rivera, Mary Bing Jacome Tara, RN RN tw2 Delmar Gresham, TACHO RN Nga Adam, TACHO RN ls4
--- NOTE | 2018-07-11 14:15 | EDPHYS ---
Physician Documentation [facility] Name: Mildred Caldwell Age: 42 yrs Sex: Female : 1975 Arrival Date: 07/11/2018 Time: 11:14 Bed 17 Private MD: Mert Paul E ED Physician Tre Charles HPI: 07/11 11:42 This 42 yrs old Female presents to ER via Ambulatory with complaints of jmm Headache. 11:42 The patient complains of pain to the top of head, forehead, right zoroastrian, left zoroastrian, jmm left frontal area, left side of the back of head, left temporal area, left occipital area, left base of the skull, right frontal area, right side of the back of head, right temporal area, right occipital area and right base of the skull. Onset: The symptoms/episode began/occurred gradually, at 09:00. Associated signs and symptoms: Pertinent positives: nausea, vomiting. This is a 42 year old female with no chronic medical conditions that presents to the ED with complaints of generalized headache with nausea and vomiting beginning around 0900. Patient states having a similar headache in the past years ago. Denies fever, denies cough. Denies congestion. 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 - Social history:: Smoking status: . - Ebola Screening: : Patient denies travel to an Ebola-affected area in the 21 days before illness onset. ROS: 11:42 Constitutional: Negative for fever, chills, and weight loss, Cardiovascular: Negative jmm for chest pain, palpitations, and edema, Respiratory: Negative for shortness of breath, cough, wheezing, and pleuritic chest pain. 11:42 Neuro: Positive for headache. 11:42 All other systems are negative. Exam: 11:42 Constitutional: This is a well developed, well nourished patient who is awake, alert, jmm and in no acute distress. Head/Face: atraumatic. Eyes: EOMI, no conjunctival erythema appreciated ENT: Moist Mucus Membranes Neck: Trachea midline, Supple Chest/axilla: Normal chest wall appearance and motion. Cardiovascular: Regular rate and rhythm. No edema appreciated Respiratory: Normal respirations, no respiratory distress appreciated Abdomen/GI: Non distended, soft Back: Normal ROM Skin: General appearance color normal MS/ Extremity: Moves all extremities, no obvious deformities appreciated, no edema noted to the lower extremities 11:42 Neuro: Orientation: is normal, Mentation: is normal, Memory: is normal, Cerebellar function: normal finger to nose testing. 11:42 Psych: Behavior/mood is pleasant, cooperative, anxious. Vital Signs: 11:26 BP 136 / 88; Pulse 81; Resp 18; Temp 97.8(TE); Pulse Ox 100% on R/A; Weight 70.31 kg tw2 (R); Height 5 ft. 4 in. (162.56 cm); Pain 10/10; 13:06 BP 134 / 86; Pulse 62; Resp 16; Temp 98.0; Pulse Ox 99% on R/A; Pain 5/10; ls4 14:22 BP 124 / 88; Pulse 58; Resp 16; Pulse Ox 99% on R/A; Pain 3/10; ls4 11:26 Body Mass Index 26.61 (70.31 kg, 162.56 cm) tw2 MDM: 11:42 Patient medically screened. [facility] 14:13 Data reviewed: vital signs, nurses notes. Counseling: I had a detailed discussion with emi the patient and/or guardian regarding: the historical points, exam findings, and any diagnostic results supporting the discharge/admit diagnosis, lab results, radiology results, the need for outpatient follow up, to return to the emergency department if symptoms worsen or persist or if there are any questions or concerns that arise at home. Response to treatment: the patient's symptoms have markedly improved after treatment, and as a result, I will discharge patient. ED course: Patient advised to follow up with neuro for reevaluation. I do not currently suspect SAH or meningitis. Patient was otherwise given strict return precautions. Patient understood and agrees with the plan of care. . 07/11 11:43 Order name: CBC with Diff; Complete Time: 12:57 [facility] 07/11 11:43 Order name: CMP; Complete Time: 13:12 [facility] 07/11 11:43 Order name: CT Head Brain wo Cont; Complete Time: 12:24 [facility] 07/11 11:43 Order name: Saline Lock; Complete Time: 12:08 [facility] Administered Medications: 12:20 Drug: NS 0.9% 1000 ml Route: IV; Rate: 1 bolus; Site: left forearm; ls4 13:44 Follow up: IV Status: Completed infusion; IV Intake: 1000ml ls4 12:20 Drug: Reglan 10 mg Route: IVP; Site: left forearm; ls4 12:48 Follow up: Response: No adverse reaction; Marked relief of symptoms ls4 12:20 Drug: diphenhydrAMINE 12.5 mg Route: IVP; Site: left forearm; ls4 12:48 Follow up: Response: No adverse reaction; Marked relief of symptoms ls4 Disposition: 07/12 09:12 Co-signature as Attending Physician, Tre Charles MD I agree with the assessment and kdr plan of care. Disposition: 07/11/18 14:14 Discharged to Home. Impression: Headache. - Condition is Stable. - Discharge Instructions: General Headache Without Cause. - Medication Reconciliation Form, Thank You Letter, Antibiotic Education, Prescription Opioid Use form. - Follow up: Black Daniel MD; When: 2 - 3 days; Reason: Recheck today's complaints, Continuance of care, Re-evaluation by your physician. Signatures: Dispatcher [employer] EDMS Tre Charles MD MD kdr Mickail, Joel, PA PA [facility] Lucy Mead RN RN tw2 Nga Pascual RN RN ls4 Corrections: (The following items were deleted from the chart) 07/11 14:41 14:14 07/11/2018 14:14 Discharged to Home. Impression: Headache. Condition is Stable. ls4 Forms are Medication Reconciliation Form, Thank You Letter, Antibiotic Education, Prescription Opioid Use. Follow up: Black Daniel; When: 2 - 3 days; Reason: Recheck today's complaints, Continuance of care, Re-evaluation by your physician. [facility]
[2018-07-11 15:31] VITALS: TEMP 98; O2SAT 99
[2018-07-11 15:33] VITALS: BP 124/88
== END 2018-07-11 14:41 | disposition home or self-care (01) ==
LOC: ER 11:11
DX: R51 Headache (principal); Z88.5 Allergy status to narcotic agent
CPT/HCPCS: 36415; 70450; 80053; 85025; 96361; 96374; 96375; 99285; J2765; J7030

== ENCOUNTER 2018-10-09 14:18 | Emergency (ER) | payer OTHER ==
--- OUTSIDE RECORDS SUMMARY | 2018-10-09 14:24 | XMS REPORT | Clinical Summary ---
:1975 Author Organization [facility] Address [address] [place] [address] Care Team Providers Name Role Phone Mert Paul Primary Care Provider Mert Paul Unavailable Allergies No Known Allergies Medications Medication Sig Dispensed Refills Start Date End Date Status jjepjh-migjtoql-wuxuv Take 36,000 0 Active se (CREON) units of 36,000-114,000- lipase by 180,000 unit CpDR mouth 3 capsule (three) times daily. metoclopramide HCl Take 10 mg 0 Active (REGLAN) 10 MG tablet by mouth 2 (two) times daily. ibuprofen Take 200 mg 0 07/19/2018 Discontinued (ADVIL,MOTRIN) 200 MG by mouth tablet every 6 (six) hours as needed for Pain. plecanatide Take 3 mg by 0 08/14/2018 Discontinued (TRULANCE) 3 mg Tab mouth daily. Active Problems Not on file Encounters Date Type Specialty Care Team Description 08/14/2018 Anesthesia Event Gastroenterology Isamar Bingham MD 08/14/2018 Surgery Gastroenterology Mai Nuñez MD ENDOSCOPY,BIOPSY 08/14/2018 Hospital Encounter Gastroenterology Mai Nuñez MD 07/19/2018 Hospital Encounter [facility] Preadmit Phone 04/16/2018 Hospital Encounter Radiology Mai Nuñez Epigastric abdominal pain; MD Navjot Constipation, unspecified constipation type 04/16/2018 Outside Orders Central Scheduling Nuñez, Suneal Epigastric abdominal pain (Primary Dx); MD Navjot Constipation, unspecified constipation type after 10/08/2017 Social History Tobacco Use Types Packs/Day Years Used Date Never Smoker Smokeless Tobacco: Never Used Alcohol Use Drinks/Week oz/Week Comments Yes 1 per 3 months Sex Assigned at Date Recorded Not on file Job Start Date Occupation Industry Not on file Not on file Not on file Travel History Travel Start Travel End No recent travel history available. Last Filed Vital Signs Vital Sign Reading Time Taken Blood Pressure 109/79 08/14/2018 3:45 PM CDT Pulse 68 08/14/2018 3:45 PM CDT Temperature 37.4 C (99.3 F) 08/14/2018 3:15 PM CDT Respiratory Rate 16 08/14/2018 3:45 PM CDT Oxygen Saturation 98% 08/14/2018 3:45 PM CDT Inhaled Oxygen Concentration - - Weight 67.8 kg (149 lb 6.4 oz) 08/14/2018 1:37 PM CDT Height 165.1 cm (5' 5") 08/14/2018 1:37 PM CDT Body Mass Index 24.86 08/14/2018 1:37 PM CDT Plan of Treatment Not on file Procedures Procedure Name Priority Date/Time Associated Diagnosis Comments REPORT OF 08/14/2018 3:13 PROCEDURE - PM CDT ENDOSCOPY URL REPORT OF 08/14/2018 3:12 PROCEDURE - PM CDT ENDOSCOPY URL TISSUE EXAM AP Routine 08/14/2018 2:52 Results for this PM CDT procedure are in the results section. COLONOSCOPY,BIOPSY 08/14/2018 2:00 Epigastric abdominal PM CDT pain LLQ abdominal pain UPPER 08/14/2018 2:00 Epigastric abdominal ENDOSCOPY,BIOPSY PM CDT pain LLQ abdominal pain XR ABDOMEN 1 VIEW Routine 04/16/2018 2:24 Epigastric abdominal Results for this PM [facility] pain procedure are in Constipation, the results unspecified section. constipation type after 10/08/2017 Results REPORT OF PROCEDURE - ENDOSCOPY URL (08/14/2018 3:13 PM CDT) Narrative Performed At REPORT OF PROCEDURE - ENDOSCOPY URL (08/14/2018 3:12 PM CDT) Narrative Performed At Tissue Exam (08/14/2018 2:52 PM CDT) Case Report Surgical Pathology Report Case: [id number] [facility] Authorizing Provider:Mai Nuñez MD Collected: 08/14/2018 1452 [facility] Ordering Location: [facility] Endoscopy Received: 08/15/2018 0833 Services Pathologist: Elsy Collier MD Specimens: A) - Duodenum, bx B) - Stomach, bx C) - Biopsy, Terminal Ileum, bx D) - Colon Biopsy, Random, bx DIAGNOSIS A. DUODENUM, BIOPSY: [facility] - DUODENAL MUCOSA WITH FOCAL MILD INCREASE IN INTRAEPITHELIAL LYMPHOCYTES [facility] (SEE COMMENT) - NEGATIVE FOR VILLOUS BLUNTING B. STOMACH, BIOPSY: - CHRONIC INACTIVE GASTRITIS - NEGATIVE FOR H. PYLORI BY WARTHIN-STARRY STAIN C. TERMINAL ILEUM, BIOPSY: - SMALL BOWEL MUCOSA WITH NO SIGNIFICANT PATHOLOGIC CHANGES - NEGATIVE FOR VILLOUS BLUNTING - NEGATIVE FOR SIGNIFICANT INCREASE OF INTRAEPITHELIAL LYMPHOCYTES D. COLON, RANDOM, BIOPSY: - FOCAL MILD INCREASE IN INTRAEPITHELIAL LYMPHOCYTES (SEE COMMENT) Signing Pathologist Direct Phone Line: [phone] COMMENT A. The finding of increased intraepithelial lymphocytes alone is non- specific and may be associated a wide range of conditions, including celiac disease, bacterial overgrowth, nonsteroidal antiinflammat [facility] ory drug damage, reaction to Helicobacter pylori infection, tropical sprue, and chronic inflammatory bowel disease. Clinical correlation is recommended. [facility] D. The finding of focal mildly increased intraepithelial lymphocytes in colonic mucosa is also non-specfic. The possible etiology includes drug, infectious, and automimmune disease including lymphocytic colitis. Clinical correlation is recommended. CPT Code(s) 92794 X 4, 55728 [facility] CLINICAL HISTORY Epigastric abdominal pain, LLQ [facility] abdominal pain [facility] SPECIMEN SOURCE A. Duodenum biopsy. B. Stomach [facility] biopsy. C. Biopsy, terminal ileum. [facility] D. Colon biopsy, random GROSS DESCRIPTION Part A. Received in formalin labeled with the patient's name , accession number and "duodenum" are multiple guerrero soft tissue fragments ranging from 0.2-0.4 cm, which are submitted in toto in A1. [facility] Part B. Received in formalin labeled with the patient's name, accession number and "stomach" are four irregular guerrero soft tissue fragments ranging from 0.2-0.5 cm, which are submitted in toto in B1. Part C. Received in formalin labeled with the patient's name, accession number and "biopsy, terminal ileum" is a 0.4 cm guerrero soft tissue fragment, which is submitted in toto in C1. Part D. Received in formalin labeled with the patient's name, accession number and "colon biopsy, random" are multiple guerrero soft tissue fragments ranging from 0.2-0.5 cm, which are submitted in toto in D1. CG/ew SPECIAL STUDIES The interpretation of this case included the use of immunohistochemistry or special stains. [facility] Control Slides Examined: In-house known positive controls were evaluated along with the test tissue. These control slides run alongside of the patients sample show appropriate staining. Internal posit tyler and negative controls when available are evaluated Immunohistochemistry technical testing was performed at [facility], Pathology Laboratory where it was developed and its performance characteristics were determined. It has not be en cleared or approved by the U.S. Food and Drug Administration. The FDA has determined that such clearance or approval is not necessary. The test is used for clinical purposes. It should not be regarde d as investigational or for research. This laboratory is certified under the Clinical Laboratory Improvement Amendments of 1988 (CLIA-88) as qualified to perform high complexity clinical laboratory testing. Specimen Tissue Tissue - Stomach structure (body structure) Tissue - Biopsy, Terminal Ileum Tissue - Colon Biopsy, Random Performing Organization Address City/State/Zipcode Phone Number [facility] [address] [place] [address] [phone] CENTER XR abdomen / KUB 1 view (04/16/2018 2:24 PM [facility]) Specimen Narrative Performed At FINAL REPORT GE RIS Exam:Abdominal radiograph History:Constipation Comparison: None. Findings: Nonobstructive bowel gas pattern. Mild amount retained stool. Multiple surgical clips. Impression: No acute osseous abnormality Mild amount of retained stool Signed: Luisito Shafer MD Report Verified Date/Time:04/16/2018 16:12:35 Procedure Note Interface, External Ris In - 04/16/2018 4:14 PM [facility] FINAL REPORT Exam: Abdominal radiograph History: Constipation Comparison: None. Findings: Nonobstructive bowel gas pattern. Mild amount retained stool. Multiple surgical clips. Impression: No acute osseous abnormality Mild amount of retained stool Signed: Luisito Shafer MD Report Verified Date/Time: 04/16/2018 16:12:35 Performing Organization Address City/State/Zipcode Phone Number GE RIS after 10/08/2017 Insurance Payer Benefit Plan / Subscriber ID Type Phone Address Group MEDICAID - MEDICAID MEDICAID COMM xxxxxxxxx Medicaid Contracted [facility]
--- OUTSIDE RECORDS SUMMARY | 2018-10-09 14:24 | XMS REPORT ---
[...] Start Date End Date Status Dosage Phenergan [facility] [id number] 25mg Po Q 12 Oct 29, Active one tablet 3-01 hours 2017 Results No Known Results Summary Purpose eClinicalWorks Submission
--- OUTSIDE RECORDS SUMMARY | 2018-10-09 14:24 | XMS REPORT ---
:1975 [facility] [address] [place] [address] Dr. Galindo [address] [place] [id number] Care Team Providers Name Role Phone CARMEN DELANEY Unavailable Unavailable Problems This patient has no known problems. Allergies, Adverse Reactions, Alerts This patient has no known allergies or adverse reactions. Medications This patient has no known medications. Encounters Start End Encounter Admission Attending Care Care Encounter Date/Time Date/Time Type Type Clinicians Facility Department ID 2016-12-11 Inpatient [facility] [id number] 19:13:58 2016-11-22 Inpatient [facility] [id number] 15:22:01 2016-11-21 Inpatient [facility] [id number] 01:48:38 2016-11-21 Inpatient [facility] [id number] 01:48:30 2016-11-20 Inpatient [facility] [id number] 05:55:00 2018-04-03 2018-04-03 Outpatient [facility] [id number] 00:00:00 00:00:00 2018-01-09 2018-01-09 Outpatient [facility] [id number] 00:00:00 00:00:00 2017-12-26 2017-12-26 Outpatient [facility] [id number] 00:00:00 00:00:00 2017-12-25 2017-12-25 Outpatient [facility] [id number] 00:00:00 00:00:00 2017-11-21 2017-11-21 Outpatient [facility] [id number] 12:12:10 12:12:10 2017-11-16 2017-11-16 Outpatient [facility] [id number] 08:30:23 08:30:23 2017-11-12 2017-11-12 Outpatient [facility] [id number] 00:00:00 00:00:00 2017-11-08 2017-11-08 Outpatient [facility] [id number] 00:00:00 00:00:00 2017-10-11 2017-10-11 Outpatient [facility] [id number] 09:34:54 09:34:54 2017-10-10 2017-10-10 Outpatient [facility] [id number] 00:00:00 00:00:00 2017-10-03 2017-10-03 Outpatient [facility] [id number] 00:00:00 00:00:00 2017-09-28 2017-09-28 Outpatient [facility] [id number] 06:43:36 06:43:36 2017-09-28 2017-09-28 Outpatient [facility] [id number] 00:00:00 00:00:00 2017-09-28 2017-09-28 Outpatient [facility] [id number] 00:00:00 00:00:00 2017-09-26 2017-09-26 Outpatient [facility] [id number] 13:42:42 13:42:42 2017-09-26 2017-09-26 Outpatient [facility] [id number] 00:00:00 00:00:00 2017-09-21 2017-09-21 Outpatient [facility] [id number] 00:00:00 00:00:00 2017-09-19 2017-09-19 Outpatient [facility] [id number] 14:50:01 14:50:01 2017-09-19 2017-09-19 Outpatient [facility] [id number] 13:16:35 13:16:35 2017-09-12 2017-09-12 Outpatient [facility] [id number] 00:00:00 00:00:00 2017-08-24 2017-08-24 Outpatient [facility] [id number] 09:22:38 09:22:38 2017-07-27 2017-07-27 Outpatient [facility] [id number] 10:35:47 10:35:47 2017-07-05 2017-07-05 Outpatient [facility] [id number] 12:15:23 12:15:23 2017-07-03 2017-07-03 Outpatient [facility] [id number] 00:00:00 00:00:00 2017-05-23 2017-05-23 Outpatient [facility] [id number] 13:13:44 13:13:44 2017-05-02 2017-05-02 Outpatient [facility] [id number] 00:00:00 00:00:00 2017-04-25 2017-04-25 Outpatient [facility] [id number] 09:01:53 09:01:53 2017-04-17 2017-04-17 Outpatient [facility] [id number] 06:05:00 06:05:00 2017-04-17 2017-04-17 Outpatient [facility] [id number] 00:00:00 00:00:00 2017-04-16 2017-04-16 Outpatient [facility] [id number] 00:00:00 00:00:00 2017-04-13 2017-04-13 Outpatient [facility] [id number] 09:12:04 09:12:04 2017-04-03 2017-04-03 Outpatient [facility] [id number] 00:00:00 00:00:00 2017-03-27 2017-03-27 Outpatient [facility] [id number] 06:15:00 06:15:00 2017-03-27 2017-03-27 Outpatient [facility] [id number] 00:00:00 00:00:00 2017-03-19 2017-03-19 Outpatient [facility] [id number] 13:22:16 13:22:16 2017-03-19 2017-03-19 Outpatient [facility] [id number] 00:00:00 00:00:00 2017-03-12 2017-03-12 [facility] [id number] 13:45:55 13:45:55 2017-03-09 2017-03-09 Outpatient [facility] [id number] 00:00:00 00:00:00 2017-03-08 2017-03-08 [facility] [id number] 16:03:22 16:03:22 2017-03-08 2017-03-08 [facility] [id number] 14:45:05 14:45:05 2017-02-23 2017-02-23 [facility] [id number] 10:41:02 10:41:02 2017-02-23 2017-02-23 [facility] [id number] 08:11:53 08:11:53 2017-02-23 2017-02-23 [facility] [id number] 07:53:43 07:53:43 2017-02-23 2017-02-23 Outpatient [facility] [id number] 00:00:00 00:00:00 2017-02-08 2017-02-08 [facility] [id number] 12:32:00 12:32:00 2017-01-24 2017-01-24 [facility] [id number] 00:00:00 00:00:00 2017-01-23 2017-01-23 Outpatient [facility] [id number] 12:16:30 12:16:30 2017-01-22 2017-01-22 Outpatient [facility] [id number] 11:30:20 11:30:20 2017-01-15 2017-01-15 Outpatient [facility] [id number] 00:00:00 00:00:00 2017-01-09 2017-01-09 Outpatient [facility] [id number] 09:09:26 09:09:26 2017-01-04 2017-01-04 Outpatient [facility] [id number] 14:36:02 14:36:02 2017-01-02 2017-01-02 [facility] [id number] 08:36:10 08:36:10 2016-12-27 2016-12-27 Outpatient [facility] [id number] 11:33:15 11:33:15 2016-12-22 2016-12-22 Outpatient [facility] [id number] 09:02:45 09:02:45 2016-12-11 2016-12-11 Outpatient [facility] [id number] 09:01:19 09:01:19 2016-12-11 2016-12-11 Inpatient [facility] [id number] 14:16:44 00:00:00 2016-12-07 2016-12-07 Outpatient [facility] [id number] 00:00:00 00:00:00 2016-12-06 2016-12-06 Outpatient [facility] [id number] 14:40:31 14:40:31 2016-12-04 2016-12-04 Outpatient [facility] [id number] 10:31:01 10:31:01 2016-11-27 2016-11-27 Outpatient [facility] [id number] 00:00:00 00:00:00 2016-11-20 2016-11-20 Outpatient [facility] [id number] 00:00:00 00:00:00 2016-11-20 2016-11-20 Outpatient [facility] [id number] 00:00:00 00:00:00 2016-11-17 2016-11-17 Outpatient [facility] [id number] 00:00:00 00:00:00 2016-10-12 2016-10-12 Outpatient [facility] [id number] 00:00:00 00:00:00 2016-10-10 2016-10-10 Outpatient [facility] [id number] 00:00:00 00:00:00 2016-10-10 2016-10-10 Outpatient [facility] [id number] 00:00:00 00:00:00 2016-10-10 2016-10-10 Outpatient [facility] [id number] 00:00:00 00:00:00 2016-09-15 2016-09-15 Outpatient [facility] [id number] 00:00:00 00:00:00 2016-08-30 2016-08-30 Outpatient [facility] [id number] 09:44:27 09:44:27 Results Test Description Test Time Test Comments Text Results Atomic Results Result Comments TISSUE EXAM 2018-08-19 Surgical Pathology Report 15:56:00 Case: [id number] Authorizing Provider: Carmen Delaney MD Collected: 08/14/2018 1452 Ordering Location: [facility] Endoscopy Received: 08/15/2018 0833 Services Pathologist: Elsy Collier MD Specimens: A) - Duodenum, bx B) - Stomach, bx C) - Biopsy, Terminal Ileum, bx D) - Colon Biopsy, Random, bx A. DUODENUM, BIOPSY: - DUODENAL MUCOSA WITH FOCAL MILD INCREASE IN INTRAEPITHELIAL LYMPHOCYTES (SEE COMMENT) - NEGATIVE FOR VILLOUS BLUNTING B. STOMACH, BIOPSY: - CHRONIC INACTIVE GASTRITIS - NEGATIVE FOR H. PYLORI BY WARTHIN-STARRY STAINC. TERMINAL ILEUM, BIOPSY: - SMALL BOWEL MUCOSA WITH NO SIGNIFICANT PATHOLOGIC CHANGES - NEGATIVE FOR VILLOUS BLUNTING - NEGATIVE FOR SIGNIFICANT INCREASE OF INTRAEPITHELIAL LYMPHOCYTESD. COLON, RANDOM, BIOPSY: - FOCAL MILD INCREASE IN INTRAEPITHELIAL LYMPHOCYTES (SEE COMMENT) Signing Pathologist Direct Phone Line: [phone] signed by Elsy Collier MD on 08/19/2018 at 3:56 PMA. The finding of increased intraepithelial lymphocytes alone is non-specific and may be associated a wide range of conditions, including celiac disease, bacterial overgrowth, nonsteroidal antiinflammatory drug damage, reaction to Helicobacter pylori infection, tropical sprue, and chronic inflammatory bowel disease. Clinical correlation is recommended. D. The finding of focal mildly increased intraepithelial lymphocytes in colonic mucosa is also non-specfic. The possible etiology includes drug, infectious, and automimmune disease including lymphocytic colitis. Clinical correlation is recommended. 54842 X 4, 41322Gkuzthytse abdominal pain, LLQ abdominal pain A. Duodenum biopsy. B. Stomach biopsy. C. Biopsy, terminal ileum. D. Colon biopsy, randomPart A. Received in formalin labeled with the patient's name, accession number and "duodenum" are multiple guerrero soft tissue fragments ranging from 0.2-0.4 cm, which are submitted in toto in A1.Part B. Received in formalin labeled with the patient's name, accession number and "stomach" are four irregular guerrero soft tissue fragments ranging from 0.2-0.5 cm, which are submitted in toto in B1. Part C. Received in formalin labeled with the patient's name, accession number and "biopsy, terminal ileum" is a 0.4 cm guerrero soft tissue fragment, which is submitted in toto in C1.Part D. Received in formalin labeled with the patient's name, accession number and "colon biopsy, random" are multiple guerrero soft tissue fragments ranging from 0.2-0.5 cm, which are submitted in toto in D1. CG/ewThe interpretation of this case included the use of immunohistochemistry or special stains.WARTHIN-STARRYControl Slides Examined: In-house known positive controls were evaluated along with the test tissue. These control slides run alongside of the patients sample show appropriate staining. Internal positive and negative controls when available are evaluated Immunohistochemistry technical testing was performed at [facility], Pathology Laboratory where it was developed and its performance characteristics were determined. It has not been cleared or approved by the U.S. Food and Drug Administration. The FDA has determined that such clearance or approval is not necessary. The test is used for clinical purposes. It should not be regarded as investigational or for research. This laboratory is certified under the Clinical Laboratory Improvement Amendments of 1988 (CLIA-88) as qualified to perform high complexity clinical laboratory testing. RAD, 2018-04-16 Reason for FINAL REPORT PATIENT ID: [id number]/KUB, 16:12:00 Exam:->epigastric [id number] Exam: Abdominal 1 VIEW AP abdominal radiograph History: Constipation painReason for Comparison: None. Findings: Exam:->constipation Nonobstructive bowel gas pattern. , unspecified Mild amount retained stool. constipation type Multiple surgical clips. Impression: No acute osseous abnormality Mild amount of retained stool Signed: Luisito Shafer MDReport Verified Date/Time: 04/16/2018 16:12:35
--- OUTSIDE RECORDS SUMMARY | 2018-10-09 14:24 | XMS REPORT | Clinical Summary ---
:1975 Author Organization [facility] Address [address] [place] [address] Care Team Providers Name Role Phone Asked, No Pcp Primary Care Provider Unavailable Allergies Active Allergy Reactions Severity Noted Date Comments Adhesive Tape-Silicones Dermatitis High 02/08/2018 Blistered when abdominal bandage left on for a week. Medications Medication Sig Dispensed Refills Start Date End Date Status promethazine Take 25 mg by 0 Discontinued (PHENERGAN) 25 MG mouth 8 (Reorder) tablet nightly. promethazine Take 1 tablet 10 tablet 0 02/09/2018 Discontinued (PHENERGAN) 25 MG (25 mg total) 8 (Stop Taking at tablet by mouth Discharge) every 6 (six) hours as needed for nausea or vomiting for up to 30 days. promethazine Take 1 tablet 30 tablet 0 02/09/2018 (PHENERGAN) 25 MG (25 mg total) 9 tablet by mouth nightly for 30 days. Active Problems Problem Noted Date Cervical spondylosis with radiculopathy 02/08/2018 Encounters Date Type Specialty Care Team Description 09/30/2018 Office Visit Orthopedic Yeyo Cervical spondylosis with radiculopathy (Primary Dx); Surgery BONITA Sylvester Radicular syndrome of left leg; Spondylolisthesis of lumbar region; Fusion of lumbar spine; Fusion of spine, unspecified spinal region 03/19/2018 Orders Only Orthopedic Blancas, Rayo, Dysphagia, unspecified Surgery MA type (Primary Dx) 03/18/2018 Orders Only Orthopedic Blancas, Rayo, Dysphagia, unspecified Surgery MA type (Primary Dx) 02/25/2018 Office Visit Orthopedic Yeyo Cervical spondylosis Surgery BONITA Sylvester with radiculopathy (Primary Dx) 02/08/2018 Anesthesia Event General Surgery Issa Rubin MD Robles Garcia, Elsa, SONIA 02/08/2018 Surgery General Surgery Velazquez, C4 - C7 ANTERIOR Konrad Sanders CERVICAL DISCECTOMY AND FUSION 02/08/2018 - Hospital Encounter Orthopedic Marcus, Cervical spondylolysis 02/09/2018 Surgery Konrad Sanders 01/28/2018 Office Visit Orthopedic Marcus, Cervical radiculopathy Surgery Konrad Sanders (Primary Dx) 01/28/2018 Pre-Admit Testing Pre-Admission Velazquez, Preoperative testing Appointment Testing Konrad Sanders (Primary Dx) 01/22/2018 Refill Orthopedic Rayo Blancas, Surgery MA 01/14/2018 Office Visit Orthopedic Yeyo, Other spondylosis with radiculopathy, cervical region (Primary Dx); Surgery BONITA Sylvester Neck pain; Fusion of lumbar spine 12/13/2017 Office Visit Orthopedic Marcus, Back pain, unspecified Surgery Konrad Sanders back location, unspecified back pain laterality, unspecified chronicity (Primary Dx) after 10/08/2017 Immunizations Name Administration Dates Next Due FLUCELVAX QUAD PF (0.5mL syringe) [...] Vital Signs Vital Sign Reading Time Taken Comments Blood Pressure 139/85 02/09/2018 9:45 AM C D STRIPPER Pulse 72 02/09/2018 7:50 AM C D STRIPPER Temperature 37.4 C (99.3 F) 02/09/2018 3:57 AM C D STRIPPER Respiratory Rate 16 02/09/2018 7:50 AM C D STRIPPER Oxygen Saturation 96% 02/09/2018 9:45 AM C D STRIPPER Inhaled Oxygen Concentration - - Weight 71.5 kg (157 lb 9.6 oz) 02/08/2018 6:30 AM C D STRIPPER Height 165.1 cm (5' 5") 02/08/2018 6:30 AM C D STRIPPER Body Mass Index 26.23 02/08/2018 6:30 AM C D STRIPPER Plan of Treatment Date Type Specialty Care Team Description 10/10/2018 Appointment Radiology Nga Orona PA-C [address] [id number] 10/10/2018 Appointment Radiology Nga Orona PA-C [address] [facility] [address] [place], [place] [phone] 10/14/2018 Office Visit Orthopedic Surgery Konrad Velazquez [address] [place] [address] Health Maintenance Due Date Last Done Comments CERVICAL CANCER SCREENING 12/24/1995 INFLUENZA VACCINE 09/19/2018 02/09/2018 Implants Implanted Type Area Sole Painter Device Shelf Model / Identifier Expiration Serial / Lot Date Tissue [id number] Lasr [id number] Srvc Fee, Ts-Cornerstone L-Asr (Tissue - Cervical Interbody) - [id number] - [id number] IPM IMPLANT N/A: [employer] 09/05/2020 [id number] / Implanted: Qty: 1 on 02/08/2018 by Konrad Velazquez at [facility] DEVICES N/A SOFAMOR DANEK [id number] / [id number] Tissue [id number] Lasr [id number] Srvc Fee, Ts-Cornerstone L-Asr (Tissue - Cervical Interbody) - [id number] - [id number] IPM IMPLANT N/A: [employer] 10/23/2020 [id number] / Implanted: Qty: 1 on 02/08/2018 by Konrad Velazquez at [facility] DEVICES N/A SOFAMOR DANEK [id number] / [id number] Tissue [id number] Lasr [id number] Srvc Fee, Ts-Cornerstone L-Asr (Tissue - Cervical Interbody) - [id number] - [id number] IPM IMPLANT N/A: [employer] 10/14/2019 [id number] / Implanted: Qty: 1 on 02/08/2018 by Konrad Velazquez at [facility] DEVICES N/A SOFAMOR DANEK [id number] / [id number] Plate [id number] Zevo 55mm 3 Lvl - [id number] IPM IMPLANT N/A: [employer] [id number] / Implanted: Qty: 1 on 02/08/2018 by Konrad Velazquez at [facility] DEVICES N/A SOFAMOR DANEK / Screw [id number] Zevo Kory Sd 3.5mm X 15mm - [id number] IPM IMPLANT N/A: [employer] [id number] / Implanted: Qty: 6 on 02/08/2018 by Konrad Velazquez at [facility] DEVICES N/A SOFAMOR DANEK / Pin Distrctn [place] 12mm Strl - [id number] Surgical N/A: AESCULAP SPINE 09/18/2022 [id number] / Implanted: Qty: 3 on 02/08/2018 by Konrad Velazquez at [facility] Implants ; N/A / Expanders; [id number] Extenders; Surgical Wires Explanted Type Area Sole Painter Device Shelf Model / Identifier Expiration Serial / Lot Date Tissue [id number] Lasr [id number] [facility] Khadijah Ts-Cornerstone L-Asr (Tissue - Cervical Interbody) - [id number] - [id number] IPM IMPLANT N/A: N/A [employer] 2020 [id number] / Implanted: 02/08/2018 (Quantity not on file) DEVICES SOFAMOR DANEK [id number] / Explanted: Qty: 1 on 02/08/2018 at [facility] [id number] Procedures Procedure Name Priority Date/Time Associated Diagnosis Comments XR SPINE SCOLIOSIS Routine 09/30/2018 11:01 Cervical spondylosis Results for this 2-3 VIEWS AM CDT with radiculopathy procedure are in the results section. XR CERVICAL SPINE 2 Routine 02/25/2018 9:58 Cervical spondylosis Results for this OR 3 VW AM C D STRIPPER with radiculopathy procedure are in the results section. SURGICAL PATHOLOGY Routine 02/08/2018 1:11 Results for this REQUEST PM C D STRIPPER procedure are in the results section. XR CERVICAL SPINE 1 Routine 02/08/2018 11:08 Results for this VW AM C D STRIPPER procedure are in the results section. XR CERVICAL SPINE 1 Routine 02/08/2018 11:07 Results for this VW AM C D STRIPPER procedure are in the results section. XR CERVICAL SPINE 1 Routine 02/08/2018 9:30 Results for this VW AM C D STRIPPER procedure are in the results section. NV AN ELECTIVE Routine 02/08/2018 9:08 ENDOTRACHEAL AIRWAY AM C D STRIPPER Procedure Note - Issa Rubin MD - 02/08/2018 9:08 AM C D STRIPPER ANESTHESIA INTUBATION Date/Time: 02/08/2018 9:08 AM Performed by: Hermann Beyer MD Authorized by: Issa Rubin MD Location: OR Urgency: Elective Difficult Airway: No Resident/[employer]/AA: Hermann Beyer MD Preoxygenated with 100% O2: [...] Approach: 1 DISCECTOMY, CERVICAL, WITH FUSION, 02/08/2018 8:13 AM C D STRIPPER Cervical spondylolysis ANTERIOR APPROACH Case Notes POSSIBLE [...] 2:14 Preoperative testing Results for this PM C D STRIPPER procedure are in the results section. ESTIMATED GFR Routine 01/28/2018 2:06 Results for this PM C D STRIPPER procedure are in the results section. TYPE AND SCREEN Routine 01/28/2018 2:06 Preoperative testing Results for this PM C D STRIPPER procedure are in the results section. PROTHROMBIN TIME WITH Routine 01/28/2018 2:06 Preoperative testing Results for this INR PM C D STRIPPER procedure are in the results section. PARTIAL THROMBOPLASTIN Routine 01/28/2018 2:06 Preoperative testing Results for this TIME (PTT) PM C D STRIPPER procedure are in the results section. COMPREHENSIVE Routine 01/28/2018 2:06 Preoperative testing Results for this METABOLIC PANEL PM C D STRIPPER procedure are in the results section. CBC HEMOGRAM Routine 01/28/2018 2:06 Preoperative testing Results for this PM C D STRIPPER procedure are in the results section. MRI CERVICAL SPINE WO Routine 12/24/2017 1:03 Back pain, Results for this CONTRAST PM C D STRIPPER unspecified back procedure are in location, the results unspecified back section. pain laterality, unspecified chronicity XR SPINE SCOLIOSIS 2-3 Routine 12/13/2017 3:00 Back pain, Results for this VIEWS PM CDT unspecified back procedure are in location, the results unspecified back section. pain laterality, unspecified chronicity after 10/08/2017 Results XR Spine Scoliosos 2-3 Views (09/30/2018 11:01 AM CDT)Only the most recent of2 resultswithin the time period is included. Specimen Narrative Performed At Standing scoliosis PA and lateral views of the entire spine are reviewed ARVIND WANG today.She has anterior cervical instrumentation in place C4 through C7 with anterior cervical plate construct and interbody corticocancellous spacers.All instrumentation is in good position with good scientologist of her interbody heights.Overall improved cervical spine lordosis compared with preoperatively, now with approximately 8 degrees of lordosis through the instrumented segments.Well-preserved disc spaces above and below fusion.Looking at her lumbar spine, she has instrumentation in place from L4 to the sacrum.All instrumentation appears to be in good position.She has residual grade 1 spondylolisthesis at L5-S1.She has 78 degrees of lumbar lordosis.She is an mildly positive sagittal balance with the C7 plumbline in relation to the sacrum.She has a very high sacral slope. Performing Organization Address City/State/Zipcode Phone Number ARVIND WANG [address] [place] [address] XR Cervical Spine 2 Or 3 Vw (02/25/2018 9:58 AM C D STRIPPER) Specimen Narrative Performed At PA and lateral view of the cervical spine are reviewed today.She has RADIANT anterior cervical instrumentation in place C4 through C7 with anterior cervical plate construct and interbody corticocancellous spacers.All instrumentation is in good position with good scientologist of her interbody heights.Overall improved cervical spine lordosis compared with preoperatively, now with approximately 8 degrees of lordosis through the instrumented segments.Well-preserved disc spaces above and below fusion. Performing Organization Address City/[facility]/Zipcode Phone Number [facility] [address] [place] [address] Surgical pathology request (02/08/2018 1:11 PM C D STRIPPER) [facility] DEPARTMENT OF PATHOLOGY AND GENOMIC MEDICINE Surgical pathology See link below [facility] DEPARTMENT OF report for PDF Lab PATHOLOGY AND Report GENOMIC MEDICINE Result status This is Final [facility] DEPARTMENT OF Report for PATHOLOGY AND [id number] GENOMIC MEDICINE Specimen Performing Organization Address [facility] Phone Number [facility] DEPARTMENT OF PATHOLOGY AND [address] [place] [address] GENOMIC MEDICINE XR Cervical Spine 1 Vw (02/08/2018 11:08 AM C D STRIPPER)Only the most recent of3 resultswithin the time period is included. Specimen Narrative Performed At EXAMINATION:XR CERVICAL SPINE 1 VW RADIANT CLINICAL HISTORY: IMPRESSION: There is anterior interbody fusion of the cervical spine in progress with the plate and screws extending from C4 to C7. Intervertebral disc grafts are seen at C4-C5, C5-6 and C6-C7 level. [id number] Procedure Note Interface, Radiology Results Incoming - 02/08/2018 6:16 PM C D STRIPPER EXAMINATION: XR CERVICAL SPINE 1 VW CLINICAL HISTORY: IMPRESSION: There is anterior interbody fusion of the cervical spine in progress with the plate and screws extending from C4 to C7. Intervertebral disc grafts are seen at C4-C5, C5-6 and C6-C7 level. [id number] Performing Organization Address [facility]/Zipcode Phone Number [facility] [address] [place] [address] ECG 12 lead (01/28/2018 2:14 PM C D STRIPPER) Ventricular rate 69 [facility] Atrial rate 69 [facility] NV interval 138 [facility] QRSD interval 100 [facility] QT interval 410 [facility] QTC interval 439 [facility] P axis 1 76 [facility] M[facility] QRS axis 1 62 [facility] M[facility] T wave axis 62 [facility] EKG impression Normal sinus rhythm-Possible Left atrial enlargement- Incomplete right bundle branch block-Borderline ECG-In automated comparison with ECG of 03-JUN-2013 15:58,-No significant change was found-Electronic [facility] MUSE ally Signed By Yobany Young ([id number]) on 01/29/2018 8:55:51 PM Specimen Narrative Performed At Performing Organization Address City/State/Zipcode Phone Number [facility] MUSE [address] [place] [phone] Estimated GFR (01/28/2018 2:06 PM C D STRIPPER) [facility] Estimated GFR >=90 mL/min/1.73 [facility] Comment: [address] CatergoryUnitsInterpretation G1 >=90 Normal or high G2 60-89Mildly decreased O5h50-68Rswdzb to moderately decreased K3m50-53Szwleancaa to severely decreased G4 15-29Severely decreased G5 <15Kidney failure The eGFR was calculated using the Chronic Kidney Disease Epidemiology Collaboration (CKD-EPI) equation. Interpretation is based on recommendations of the National Kidney Foundation-Kidney Disease Outcomes Quality Initiative (NKF-KDOQI) published in 2014. Specimen Plasma specimen Performing Organization Address City/[facility]/Zipcode Phone Number [facility] DEPARTMENT OF PATHOLOGY AND [address] [place] [phone] [address] Partial thromboplastin time, activated (01/28/2018 2:06 PM C D STRIPPER) [facility] PTT 22.5 (L) 23.0 - 36.0 [facility] Comment: [facility] PTT therapeutic range for unfractionated heparin is 61.0-112.0 seconds which corresponds to Anti-Xa 0.3-0.7 U/ml. Specimen Blood Performing Organization Address City/State/Zipcode Phone Number [facility] DEPARTMENT OF PATHOLOGY AND [address] [place] [phone] [address] Prothrombin time with INR (01/28/2018 2:06 PM C D STRIPPER) [facility] Prothrombin time 11.7 11.5 - 14.5 [facility] INR 0.9 [facility] Comment: [facility] International Normalized Ratio (INR) is a therapeutic HOSPITAL monitoring tool for patients who are stable on oral anticoagulant therapy. An INR of 2.0-3.0 is suggested for deep vein thrombosis/pulmonary embolism. Specimen Blood Performing Organization Address City/State/Zipcode Phone Number [facility] DEPARTMENT OF PATHOLOGY AND [address] [place] [phone] [place] [phone] CBC hemogram (01/28/2018 2:06 PM C D STRIPPER) WBC 8.52 4.50 - 11.00 k/uL [facility] RBC 4.78 4.20 - 5.50 m/uL [facility] HGB 13.9 12.0 - 16.0 g/dL [facility] HCT 41.9 37.0 - 47.0 % [facility] MCV 87.7 82.0 - 100.0 fL [facility] MCH 29.1 27.0 - 34.0 pg [facility] MCHC 33.2 31.0 - 37.0 g/dL [facility] RDW - SD 43.1 37.0 - 55.0 fL [facility] MPV 11.3 8.8 - 13.2 fL [facility] Platelet count 174 150 - 400 k/uL [facility] Nucleated RBC 0.00 /100 WBC [facility] Specimen Blood Performing Organization Address City/[facility] Phone Number [facility] DEPARTMENT OF PATHOLOGY AND [address] [place] [phone] Type and screen (01/28/2018 2:06 PM C D STRIPPER) ABO grouping O [facility] Rh type NEG [facility] Antibody screen (gel) NEG [facility] Specimen Blood Performing Organization Address City/State/Zipcode Phone Number [facility] DEPARTMENT OF PATHOLOGY AND [address] [place] [phone] Comprehensive metabolic panel (01/28/2018 2:06 PM C D STRIPPER) Sodium 142 135 - 148 [facility] mEq/L [facility] Potassium 3.8 3.5 - 5.0 [facility] mEq/L [facility] Chloride 103 98 - 112 mEq/L [facility] CO2 23 (L) 24 - 31 mEq/L [facility] Anion gap 16@ANIO (H) 7 - 15 mEq/L [facility] BUN 13 6 - 20 mg/dL [facility] Creatinine 0.71 0.50 - 0.90 [facility] mg/dL HOSPITAL Glucose 81 65 - 99 mg/dL [facility] Calcium 9.6 8.3 - 10.2 [facility] mg/dL [facility] Protein 7.4 6.3 - 8.3 g/dL [facility] Comment: HOSPITAL 4.6-7.0 g/dL 1 week 4.4-7.6 g/dL 7 months-1year5.1-7.3 g/dL 1-2 years5.6-7.5 g/dL >3 years6.0-8.0 g/dL 18-150 6.3-8.3 g/dL Albumin 3.9 3.5 - 5.0 g/dL [facility] A/G ratio 1.1 0.7 - 3.8 [facility] Alkaline phosphatase 86 35 - 104 U/L [facility] AST 22 10 - 35 U/L [facility] ALT 25 5 - 50 U/L [facility] Total bilirubin <0.2 0.0 - 1.2 [facility] mg/dL [facility] Specimen Plasma specimen Performing Organization Address City/State/Zipcode Phone Number [facility] DEPARTMENT OF PATHOLOGY AND [address] [place] [address] GEN[address] [address] MRI Cervical Spine Wo Contrast (12/24/2017 1:03 PM C D STRIPPER) Specimen Narrative Performed At EXAMINATION: MRI CERVICAL [...] to bulging disc material and cervical kyphosis. [id number] Procedure Note Hm Interface, Radiology Results Incoming - 12/24/2017 1:12 PM C D STRIPPER EXAMINATION: MRI CERVICAL SPINE WO CONTRAST CLINICAL [...] to bulging disc material and cervical kyphosis. 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
--- OUTSIDE RECORDS SUMMARY | 2018-10-09 14:24 | XMS REPORT ---
[...] Start Date End Date Status Dosage Phenergan [facility] [id number] 25mg Po Q 12 Oct 10, Active one tablet 3-01 hours 2018 Results No Known Results Summary Purpose eClinicalWorks Submission
--- OUTSIDE RECORDS SUMMARY | 2018-10-09 14:25 | XMS REPORT | Summary of Care ---
:1975 Author Organization [facility] [place] [address] Care Team Providers Name Role Phone Lisa Finley MD Primary Care Provider Reason for Visit Reason Comments Procedure Tattoo Consult, Test & Treat (Routine) Status Reason Specialty Diagnoses / Referred By Referred To Procedures Contact Contact Authorization Not Plastic Surgery Diagnoses Breast cancer Mnoi Finley, Needed Procedures MI CORRECT SKIN COLR DEFCT 6.1-20SQ CM TATTOO 30 MD Tianna Gonzalez [address] Betina Matos PA-C [address] [facility] [address] [address] Phone: [place], [place] [phone] Fax: Encounter Details Date Type Department Care Team Description 10/04/2018 Office Visit [facility] Tianna Montenegro Procedure (Tattoo ) Medicine Megha Matos PA-C Surgery 1977 [facility] [address] [facility], [facility] [id number] [place] [address] [place] [address] Allergies Active Allergy Reactions Severity Noted Date Comments Opioid Analgesics 10/06/2015 documented as of this encounter (statuses as of 10/04/2018) Medications Medication Sig Dispensed Refills Start Date End Date Status Na Sulfate-K Sulfate-Mg [SUPREP] Take 1 Bottle 0 04/16/2018 Active Sulf (SUPREP BOWEL PREP as directed. KIT) 17.5-3.13-1.6 GM/177ML SOLNIndications: LLQ abdominal pain Plecanatide (TRULANCE) 3 Take 3 mg by 30 Tab 6 04/16/2018 Active MG TABSIndications: mouth daily. Constipation, unspecified constipation type metoclopramide (REGLAN) Take 1 Tab by 60 Tab 6 04/16/2018 Active 10 MG tabletIndications: mouth two times Constipation, unspecified daily. constipation type Pancrelipase, Take 2 Caps by 250 Cap 6 04/16/2018 Active Vgp-Nrgt-Gjnq, (CREON) mouth 3 times 49265 units CPEP daily (with meals). documented as of this encounter (statuses as of 10/04/2018) Active Problems Problem Noted Date History of rotator cuff surgery 08/17/2016 Tear of left rotator cuff 08/17/2016 Neck pain on left side 01/13/2015 documented as of this encounter (statuses as of 10/04/2018) Social History Tobacco Use Types Packs/Day Years Used Date Never Smoker Smokeless Tobacco: Never Used Alcohol Use Drinks/Week oz/Week Comments Yes Sex Assigned at Date Recorded Not on file Job Start Date Occupation Industry Not on file Not on file Not on file Travel History Travel Start Travel End No recent travel history available. documented as of this encounter Last Filed Vital Signs Vital Sign Reading Time Taken Comments Blood Pressure 136/91 10/04/2018 9:39 AM CDT Pulse 78 10/04/2018 9:39 AM CDT Temperature - - Respiratory Rate - - Oxygen Saturation - - Inhaled Oxygen Concentration - - Weight 71.2 kg (157 lb) 10/04/2018 9:39 AM CDT Height 165.1 cm (5' 5") 10/04/2018 9:39 AM CDT Body Mass Index 26.13 10/04/2018 9:39 AM CDT documented in this encounter Progress Notes Tianna Montenegro PA-C - 10/04/2018 10:00 AM CDTMs. Mildred Caldwell is a 42 y.o. female who previously underwent Bilateral NIMCO flap breast reconstruction. Her nipple reconstruction was done in April 2018. She now presents for second stage nipple-areolar complex micropigmentation. Consent: The risks and benefits of the procedure were discussed in detail including pain, bleeding,infection, scarring, asymmetry, color mismatch, fading of color, and need for further procedures. The patient understood, signed the consent, and wished to proceed. Procedure: Bilateral NAC Micropigmentation; 16 cm bilaterally Local Anesthesia:10 cc of 1% lidocaine with epinephrine Pigment Color: Flesh 10 and Dark chocolate for shadow PE: The patient's scars are well-healed, the flap(s) are viable. The pigment colors were offered to the patient and compared to her skin tone. She wanted her tattoos to be a shade darker this session. She was happy with the size. Together with the patient, pigment color was chosen. At this time, the markings for the new areolae were drawn based upon the size, shape and location preference of the patient - 4 cm x 4 cm bilaterally. The patient was given a mirror to evaluate the markings; once she agreed, the micropigmentation procedure began. Micropigmentation was performed in the standard fashion without complications. The patient was provided a mirror throughout the procedure to evaluate the size and shape of the areola; at the end of the procedure the patient was happy with the results. The areas were dressed with adaptic, bacitracin and 4x4s. Post-procedure instructions were given: 1. Apply antibiotic ointment to the area twice a day for seven days. 2. For the first 5 days, or until a scab has formed, Do not scrub, wash with soap, or allow a hard shower stream to fall on the treated area. Simply allow water to run over it gently and gently pat drywith a soft towel. 3. Do not pick the scab loose, this will remove the pigmentation. 4. To avoid irritation from bras or undergarments, continue to apply the dressing until the area is completely healed. 5. You may resume normal activities. However, avoid activities that may cause rubbing or friction tothe treated area. Follow-up for touch up tattoo PRN. CPT Code(s):01300 and 55707 I appreciate the opportunity to be involved in the care of this patient. Tianna Montenegro PA-C documented in this encounter Plan of Treatment Health Maintenance Due Date Last Done Comments MAMMOGRAM ANNUAL 1975 TETANUS SHOT (ADULT) 1989 BMI FOLLOW UP PLAN 1992 HIV SCREENING 1992 CERVICAL CANCER SCREENING 3 YEAR FOLLOW UP 12/24/1995 FLU VACCINE > 6 MONTHS 09/19/2018 documented as of this encounter Results Not on filedocumented in this encounter Visit Diagnoses Diagnosis BRCA gene mutation positive - Primary documented in this encounter Insurance Payer Benefit Plan / Subscriber ID Effective Phone Address Type Group Dates [facility] - xxxxxxxxx [address] Medicaid [employer] ent [id number] [place] [address] documented as of this encounter
[2018-10-09] MEDS ORDERED: METHOCARBAMOL 1,000 MG/10 ML VIAL IV ONE (15:10)
[2018-10-09] MEDS ORDERED: NA CHLORIDE 0.9% 100 ML IV ONE (15:10)
[2018-10-09] MEDS ORDERED: KETOROLAC 30 MG/ML INJ ONE (15:10)
[2018-10-09] MEDS ORDERED: MECLIZINE HCL 12.5 MG TAB ONE (15:10)
[2018-10-09] MEDS ORDERED: dexAMETHasone 10 MG/ML VIAL ONE (15:10)
[2018-10-09] MEDS ORDERED: NA CHLORIDE 0.9% 1,000 ML ONE (15:11)
[2018-10-09 15:43] LABS: Absolute Lymphocytes (CBC) 2.1 K/uL (0.7-4.9); Basophils % 0.5 % (0-1.3); Lymphocytes % 35.8 % (15.3-44.8); MPV 9.1 fL (7.6-11.3); RBC Red Blood Cell Count 4.89 M/uL (3.86-4.86)
--- NOTE | 2018-10-09 16:23 | ER ---
Nurse's Notes [facility] Name: Mildred Caldwell Age: 42 yrs Sex: Female : 1975 Arrival Date: 10/09/2018 Time: 14:20 Bed 23 Private MD: Mert Paul E Diagnosis: Vertigo;Low back pain Presentation: 10/09 14:26 Presenting complaint: Patient states: I am having severe sharp pains in my leg and I am la1 having nausea and lightheaded. I have an MRI scheduled tomorrow morning at 0800. I googled the sx of vertigo and I think I might have that as well. Transition of care: patient was not received from another setting of care. Onset of symptoms was October 09, 2018. Risk Assessment: Do you want to hurt yourself or someone else? Patient reports no desire to harm self or others. Initial Sepsis Screen: Does the patient meet any 2 criteria? No. Patient's initial sepsis screen is negative. Does the patient have a suspected source of infection? No. Patient's initial sepsis screen is negative. Care prior to arrival: None. 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 - Social history:: Smoking status: unknown. - Ebola Screening: : No symptoms or risks identified at this time. Screenin:35 Abuse screen: Denies threats or abuse. Denies injuries from another. Nutritional ca1 screening: No deficits noted. Tuberculosis screening: No symptoms or risk factors identified. Fall Risk None identified. Assessment: 14:35 General: Appears in no apparent distress. comfortable, Behavior is calm, cooperative, ca1 appropriate for age. Pain: Complains of pain in back Pain does not radiate. Pain currently is 8 out of 10 on a pain scale. Is chronic. Neuro: Level of Consciousness is awake, alert, obeys commands, Oriented to person, place, time, situation, Reports dizziness, since 3-4 days ago. Cardiovascular: Heart tones S1 S2 present. Respiratory: Airway is patent Respiratory effort is even, unlabored, Respiratory pattern is regular, symmetrical, Breath sounds are clear bilaterally. GI: Abdomen is flat, non-distended, Bowel sounds present X 4 quads. Abd is soft and non tender X 4 quads. Reports nausea. : No deficits noted. No signs and/or symptoms were reported regarding the genitourinary system. EENT: No deficits noted. No signs and/or symptoms were reported regarding the EENT system. Derm: Skin is intact, is healthy with good turgor, Skin is pink, warm \T\ dry. Musculoskeletal: Circulation, motion, and sensation intact. Capillary refill < 3 seconds, Range of motion: intact in all extremities. 15:39 Reassessment: Patient appears in no apparent distress at this time. Patient and/or ca1 family updated on plan of care and expected duration. Pain level reassessed. Patient is alert, oriented x 3, equal unlabored respirations, skin warm/dry/pink. 16:36 Reassessment: Patient appears in no apparent distress at this time. Patient is alert, ca1 oriented x 3, equal unlabored respirations, skin warm/dry/pink. Patient states feeling better. Vital Signs: 14:26 BP 124 / 91; Pulse 78; Resp 16; Temp 98.9; Pulse Ox 98% on R/A; la1 15:15 BP 134 / 78; Pulse 76; Resp 15 S; Pulse Ox 98% on R/A; ca1 16:36 BP 125 / 93; Pulse 62; Resp 16 S; Pulse Ox 98% on R/A; ca1 ED Course: 14:20 Patient arrived in ED. mr 14:20 Mert Paul MD is Private Physician. mr 14:25 Arm band placed on left wrist. la1 14:27 Triage completed. la1 14:30 Rick Charles PA is PHCP. jr8 14:30 Peng Jackson MD is Attending Physician. jr8 14:35 Patient has correct armband on for positive identification. Bed in low position. Call ca1 light in reach. Side rails up X 1. Pulse ox on. NIBP on. Warm blanket given. 14:58 Aimee Archibald, TACHO is Primary Nurse. ca1 15:20 No provider procedures requiring assistance completed. Inserted saline lock: 22 gauge ca1 in left antecubital area, using aseptic technique. Blood collected. 15:23 EKG done, by deburr technician. reviewed by Rick BLAND. sm3 16:37 IV discontinued, intact, bleeding controlled, No redness/swelling at site. Pressure ca1 dressing applied. Administered Medications: 15:22 Drug: NS 0.9% 1000 ml Route: IV; Rate: 1000 ml; Site: left antecubital; ca1 15:22 Drug: Meclizine 25 mg Route: PO; ca1 15:27 Drug: TORadol - Ketorolac 15 mg Route: IVP; Site: left antecubital; ca1 15:31 Drug: Decadron - Dexamethasone 10 mg Route: IVP; Site: left antecubital; ca1 15:37 Drug: Robaxin 1 grams Route: IVPB; Infused Over: 1 hrs; Site: left antecubital; ca1 Outcome: 16:22 Discharge ordered by . tayla 16:37 Discharged to home ambulatory. ca1 16:37 Condition: stable 16:37 Discharge instructions given to patient, Instructed on discharge instructions, follow up and referral plans. medication usage, Demonstrated understanding of instructions, follow-up care, medications, Prescriptions given X 1. 16:38 Patient left the ED. ca1 Signatures: BorisNaomi Josh, PA PA jr8 Arthur Moss, RN RN jose1 Afsaneh Vidales 3 Aimee Archibald RN RN ca1
--- NOTE | 2018-10-09 16:24 | EDPHYS ---
Physician Documentation [facility] Name: Mildred Caldwell Age: 42 yrs Sex: Female : 1975 Arrival Date: 10/09/2018 Time: 14:20 Bed 23 Private MD: Mert Paul E ED Physician Peng Jackson HPI: 10/09 16:04 This 42 yrs old Female presents to ER via Ambulatory with complaints of jr8 Dizziness, Nausea. 16:04 The patient presents with dizziness, lightheadedness, sense of spinning. Onset: The jr8 symptoms/episode began/occurred acutely, yesterday. Context: occurred at home. Modifying factors: The symptoms are alleviated by nothing, the symptoms are aggravated by movement of head. Associated signs and symptoms: Pertinent positives: nausea. Severity of symptoms: At their worst the symptoms were moderate in the emergency department the symptoms are unchanged. Patient's baseline: Neuro: alert and fully oriented, Motor: no deficits, Ambulation: walks without assistance, Speech: normal. The patient has not experienced similar symptoms in the past. The patient has not recently seen a physician. Patient with chronic low back pain. Stated that it flared up the other day. Since then has not been able to control it with home medications. Stated that she has diagnostic procedure for low back tomorrow at [place]. Came today for dizziness. Stated that she has had this in past but never for this long. Worse with movement. Does not know if it is from her pain or not. 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 - Social history:: Smoking status: unknown. - Ebola Screening: : No symptoms or risks identified at this time. ROS: 16:04 Eyes: Negative for injury, pain, redness, and discharge, ENT: Negative for injury, jr8 pain, and discharge, Neck: Negative for injury, pain, and swelling, Cardiovascular: Negative for chest pain, palpitations, and edema, Respiratory: Negative for shortness of breath, cough, wheezing, and pleuritic chest pain, Abdomen/GI: Negative for abdominal pain, nausea, vomiting, diarrhea, and constipation, MS/Extremity: Negative for injury and deformity, Skin: Negative for injury, rash, and discoloration. 16:04 Back: Positive for pain at rest, pain with movement, of the low back area. 16:04 Neuro: Positive for dizziness, Negative for altered mental status, gait disturbance, headache, hearing loss, loss of consciousness, numbness, seizure activity, speech changes, syncope, near syncope, tingling, tinnitus, tremor, visual changes, weakness. Exam: 16:20 Eyes: Pupils equal round and reactive to light, extra-ocular motions intact. Lids and jr8 lashes normal. Conjunctiva and sclera are non-icteric and not injected. Cornea within normal limits. Periorbital areas with no swelling, redness, or edema. ENT: Nares patent. No nasal discharge, no septal abnormalities noted. Tympanic membranes are normal and external auditory canals are clear. Oropharynx with no redness, swelling, or masses, exudates, or evidence of obstruction, uvula midline. Mucous membranes moist. Neck: Trachea midline, no thyromegaly or masses palpated, and no cervical lymphadenopathy. Supple, full range of motion without nuchal rigidity, or vertebral point tenderness. No Meningismus. Cardiovascular: Regular rate and rhythm with a normal S1 and S2. No gallops, murmurs, or rubs. Normal PMI, no JVD. No pulse deficits. Respiratory: Lungs have equal breath sounds bilaterally, clear to auscultation and percussion. No rales, rhonchi or wheezes noted. No increased work of breathing, no retractions or nasal flaring. Abdomen/GI: Soft, non-tender, with normal bowel sounds. No distension or tympany. No guarding or rebound. No evidence of tenderness throughout. Skin: Warm, dry with normal turgor. Normal color with no rashes, no lesions, and no evidence of cellulitis. MS/ Extremity: Pulses equal, no cyanosis. Neurovascular intact. Full, normal range of motion. 16:20 Back: pain, that is moderate, of the low back area, ROM is painful, normal spinal alignment noted, CVA tenderness, is absent, vertebral tenderness, is not appreciated. 16:20 Neuro: Orientation: to person, place, time \T\ situation. Mentation: is normal, Memory: is normal, immediate memory is intact, recent memory is intact, remote memory is intact, Cranial nerves: CN I not tested, CN II- XII are normal as tested, extraocular movements are intact, Facial palsy and sensory deficits are absent. Nystagmus is absent. Cerebellar function: normal finger to nose testing, heel to fuller testing is normal, Motor: moves all fours, strength is 5/5 in all extremities, Sensation: no obvious gross deficits, Gait: not tested. seizure activity, is not displayed by the patient, Abnormal movements: there are no abnormal movements. Vital Signs: 14:26 BP 124 / 91; Pulse 78; Resp 16; Temp 98.9; Pulse Ox 98% on R/A; la1 15:15 BP 134 / 78; Pulse 76; Resp 15 S; Pulse Ox 98% on R/A; ca1 16:36 BP 125 / 93; Pulse 62; Resp 16 S; Pulse Ox 98% on R/A; ca1 MDM: 15:02 Patient medically screened. [facility] : Data reviewed: vital signs, nurses notes, lab test result(s), EKG. Data interpreted: [facility] Pulse oximetry: on room air is 98 %. Interpretation: normal. Counseling: I had a detailed discussion with the patient and/or guardian regarding: the historical points, exam findings, and any diagnostic results supporting the discharge/admit diagnosis, lab results, the need for outpatient follow up, a family practitioner, to return to the emergency department if symptoms worsen or persist or if there are any questions or concerns that arise at home. Response to treatment: the patient's symptoms have markedly improved after treatment, patient is well hydrated. and as a result, I will discharge patient. 10/09 15:03 Order name: CBC with Diff [facility] 10/09 15:03 Order name: Basic Metabolic Panel; Complete Time: 16:04 10/09 15:03 Order name: IV; Complete Time: 15:34 [facility] 10/09 15:03 Order name: EKG - Nurse/Tech; Complete Time: : [facility] 10/09 15: Order name: EKG; Complete Time: 15: Administered Medications: 15: Drug: NS 0.9% 1000 ml Route: IV; Rate: 1000 ml; Site: left antecubital; ca1 15:22 Drug: Meclizine 25 mg Route: PO; ca1 15:27 Drug: TORadol - Ketorolac 15 mg Route: IVP; Site: left antecubital; ca1 15:31 Drug: Decadron - Dexamethasone 10 mg Route: IVP; Site: left antecubital; ca1 15:37 Drug: Robaxin 1 grams Route: IVPB; Infused Over: 1 hrs; Site: left antecubital; ca1 Disposition: 18:14 Co-signature as Attending Physician, Peng Jackson MD. rn Disposition: 10/09/18 16:22 Discharged to Home. Impression: Vertigo, Low back pain. - Condition is Stable. - Discharge Instructions: Back Pain, Adult, Musculoskeletal Pain, Vertigo. - Prescriptions for Meclizine 25 mg Oral Tablet - take 1 tablet by ORAL route every 8 hours As needed; 30 tablet. - Medication Reconciliation Form, Thank You Letter, Antibiotic Education, Prescription Opioid Use form. - Follow up: Private Physician; When: Tomorrow; Reason: Recheck today's complaints, Continuance of care, Re-evaluation by your physician. - Problem is new. - Symptoms have improved. Signatures: Dispatcher [employer] EDNV Peng Jackson MD MD rn Roszak, Josh, PA PA jr8 Arthur Moss RN RN la1 Aimee Archibald RN RN ca1 Corrections: (The following items were deleted from the chart) 16:38 16:22 10/09/2018 16:22 Discharged to Home. Impression: Vertigo; Low back pain. ca1 Condition is Stable. Forms are Medication Reconciliation Form, Thank You Letter, Antibiotic Education, Prescription Opioid Use. Follow up: Private Physician; When: Tomorrow; Reason: Recheck today's complaints, Continuance of care, Re-evaluation by your physician. Problem is new. Symptoms have improved. jr8
[2018-10-09 17:15] VITALS: TEMP 98.9; O2SAT 98
[2018-10-09 17:19] VITALS: BP 125/93
--- NOTE | 2018-10-09 22:17 | EKG ---
Test Date: 2018-10-09 Test Time: 15:14:36 Supervisor Advice: BEATRICE MEASUREMENT RESULTS: Intervals: Rate: 72 OK: 142 QRSD: 96 QT: 404 QTc: 442 [place]: P: 63 OK: 142 QRS: 30 T: 45 INTERPRETIVE STATEMENTS: Normal sinus rhythm Incomplete right bundle branch block Borderline ECG Compared to ECG 05/28/2017 12:31:08 Incomplete right bundle-branch block now present Sinus tachycardia no longer present Electronically Signed On 10-09-18 22:16:46 CDT by Narinder Mayen
== END 2018-10-09 16:38 | disposition home or self-care (01) ==
LOC: ER 14:18
DX: R42 Dizziness and giddiness (principal); M54.5 Low back pain
CPT/HCPCS: 93005; 85025; 80048; 36415; J1100; J7030; J2800; 96374; 96375; 99284

== ENCOUNTER 2018-12-28 19:33 | Emergency (ER) | payer OTHER ==
[2018-12-28] MEDS ORDERED: CYCLOBENZAPRINE 10 MG TAB ONE (20:14)
[2018-12-28] MEDS ORDERED: LIDOCAINE 4% PATCH ONE (20:14)
[2018-12-28] MEDS ORDERED: KETOROLAC 30 MG/ML INJ ONE (20:14)
--- NOTE | 2018-12-28 20:34 | ER ---
Nurse's Notes [facility] Name: Mildred Caldwell Age: 43 yrs Sex: Female : 1975 Arrival Date: 12/28/2018 Time: 19:35 Bed 24 Private MD: Diagnosis: Low back pain Presentation: 12/28 19:39 Presenting complaint: Patient states: left leg pain, back pain for the last three la1 weeks. Transition of care: patient was not received from another setting of care. Onset of symptoms was December 28, 2018. Risk Assessment: Do you want to hurt yourself or someone else? Patient reports no desire to harm self or others. Initial Sepsis Screen: Does the patient meet any 2 criteria? No. Patient's initial sepsis screen is negative. Does the patient have a suspected source of infection? No. Patient's initial sepsis screen is negative. Care prior to arrival: None. 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 - Social history:: Smoking status: Patient/guardian denies using tobacco. - Ebola Screening: : No symptoms or risks identified at this time. Screenin:50 Abuse screen: Denies threats or abuse. Denies injuries from another. Nutritional ca1 screening: No deficits noted. Tuberculosis screening: No symptoms or risk factors identified. Fall Risk None identified. Assessment: 19:50 General: Appears in no apparent distress. uncomfortable, Behavior is calm, cooperative, ca1 appropriate for age. Pain: Complains of pain in lateral aspect of left thigh Pain currently is 8 out of 10 on a pain scale. Quality of pain is described as shooting, squeezing, Pain began 3 weeks ago Is continuous, Aggravated by weight bearing. Neuro: Level of Consciousness is awake, alert, obeys commands, Oriented to person, place, time, situation. Cardiovascular: Heart tones S1 S2 present Capillary refill < 3 seconds Patient's skin is warm and dry. Respiratory: Airway is patent Respiratory effort is even, unlabored, Respiratory pattern is regular, symmetrical, Breath sounds are clear bilaterally. GI: Abdomen is flat, non-distended, Bowel sounds present X 4 quads. Abd is soft and non tender X 4 quads. : No deficits noted. No signs and/or symptoms were reported regarding the genitourinary system. EENT: No deficits noted. No signs and/or symptoms were reported regarding the EENT system. Derm: Skin is intact, is healthy with good turgor, Skin is pink, warm \T\ dry. Musculoskeletal: Circulation, motion, and sensation intact. Capillary refill < 3 seconds, Range of motion: intact in all extremities. 20:36 Reassessment: Patient appears in no apparent distress at this time. Patient is alert, ca1 oriented x 3, equal unlabored respirations, skin warm/dry/pink. Patient states feeling better. Vital Signs: 19:39 Pulse 74; Resp 16; Temp 97.4; Pulse Ox 100% on R/A; Weight 68.04 kg; Height 5 ft. 6 in. la1 (167.64 cm); 19:40 BP 121 / 72; la1 19:39 Body Mass Index 24.21 (68.04 kg, 167.64 cm) la1 ED Course: 19:35 Patient arrived in ED. cf2 19:40 Triage completed. la1 19:40 Arm band placed on right wrist. la1 19:45 Galileo Leyva NP is PHCP. pm1 19:45 Tre Charles MD is Attending Physician. pm1 19:47 Aimee Archibald RN is Primary Nurse. ca1 19:50 Patient has correct armband on for positive identification. Bed in low position. Call ca1 light in reach. Side rails up X 1. Pulse ox on. NIBP on. Warm blanket given. 19:50 No provider procedures requiring assistance completed. Patient did not have IV access ca1 during this emergency room visit. Administered Medications: 20:05 Drug: TORadol 60 mg Route: IM; Site: left gluteus; ca1 20:37 Follow up: Response: No adverse reaction; Pain is decreased ca1 20:10 Drug: Lidoderm 5 % (700 mg/patch) 1 patches Route: Topical; Site: left thigh; ca1 20:36 Follow up: Response: No adverse reaction; Pain is decreased ca1 20:20 Drug: Flexeril 10 mg Route: PO; ca1 20:37 Follow up: Response: No adverse reaction; Pain is decreased ca1 Outcome: 20:34 Discharge ordered by MD. pm1 20:43 Discharged to home via wheelchair, with family. ca1 20:43 Condition: stable 20:43 Discharge instructions given to patient, Instructed on discharge instructions, follow up and referral plans. medication usage, Demonstrated understanding of instructions, follow-up care, medications, Prescriptions given X 3. 20:43 Patient left the ED. ca1 Signatures: Arthur Moss RN RN la1 Galileo Leyva NP BUSINESS MANAGEMENT INTERN pm1 Aimee Archibald RN RN ca1 Terri Stark 2
--- NOTE | 2018-12-28 20:35 | EDPHYS ---
Physician Documentation [facility] Name: Mildred Caldwell Age: 43 yrs Sex: Female : 1975 Arrival Date: 12/28/2018 Time: 19:35 Bed 24 Private MD: ED Physician Tre Charles HPI: 12/28 20:00 This 43 yrs old Female presents to ER via Wheelchair with complaints of Leg pm1 Pain, Back Pain, Leg Problem. 20:00 The symptoms are located in the left low back. pm1 20:00 Onset: The symptoms/episode began/occurred 3 week(s) ago. The pain radiates to the left pm1 leg. Associated signs and symptoms: Pertinent negatives: dysuria, fever, incontinence, numbness, tingling. The problem was sustained from unknown cause. Modifying factors: The patient symptoms are alleviated by moving left leg medially, the patient symptoms are aggravated by moving left leg laterally. Severity of symptoms: in the emergency department the symptoms are actually worse. The patient has experienced similar episodes in the past, chronically, and the symptoms today are exactly the same, to previous chronic back pain. [employer]: 20:36 LMP N/A - Hysterectomy ca1 Historical: - Allergies: 19:40 No Known Allergies; la1 - PMHx: 19:40 Chronic pain; la1 - Immunization history:: Adult Immunizations up to date. - Social history:: Smoking status: Patient/guardian denies using tobacco. - Ebola Screening: : No symptoms or risks identified at this time. ROS: 20:00 Constitutional: Negative for fever, chills, and weight loss, Eyes: Negative for injury, pm1 pain, redness, and discharge, ENT: Negative for injury, pain, and discharge, Neck: Negative for injury, pain, and swelling, Cardiovascular: Negative for chest pain, palpitations, and edema, Respiratory: Negative for shortness of breath, cough, wheezing, and pleuritic chest pain, Abdomen/GI: Negative for abdominal pain, nausea, vomiting, diarrhea, and constipation, MS/Extremity: Negative for injury and deformity, Skin: Negative for injury, rash, and discoloration. 20:00 Neuro: Negative for headache, weakness, numbness, tingling, and seizure. 20:00 Back: Positive for of the left low back. Exam: 20:00 Constitutional: This is a well developed, well nourished patient who is awake, alert, pm1 and in no acute distress. Head/Face: Normocephalic, atraumatic. Neck: Trachea midline, no thyromegaly or masses palpated, and no cervical lymphadenopathy. Supple, full range of motion without nuchal rigidity, or vertebral point tenderness. No Meningismus. Chest/axilla: Normal chest wall appearance and motion. Nontender with no deformity. No lesions are appreciated. Cardiovascular: Regular rate and rhythm with a normal S1 and S2. No gallops, murmurs, or rubs. Normal PMI, no JVD. No pulse deficits. Respiratory: Lungs have equal breath sounds bilaterally, clear to auscultation and percussion. No rales, rhonchi or wheezes noted. No increased work of breathing, no retractions or nasal flaring. Abdomen/GI: Soft, non-tender, with normal bowel sounds. No distension or tympany. No guarding or rebound. No evidence of tenderness throughout. 20:00 Skin: Warm, dry with normal turgor. Normal color with no rashes, no lesions, and no evidence of cellulitis. MS/ Extremity: Pulses equal, no cyanosis. Neurovascular intact. Full, normal range of motion. 20:00 Back: normal spinal alignment noted, vertebral tenderness, is not appreciated, muscle spasm, is appreciated in the left low back, pain reproduced with moving left leg laterally. 20:00 Neuro: Orientation: is normal, Motor: moves all fours. Vital Signs: 19:39 Pulse 74; Resp 16; Temp 97.4; Pulse Ox 100% on R/A; Weight 68.04 kg; Height 5 ft. 6 in. la1 (167.64 cm); 19:40 BP 121 / 72; la1 19:39 Body Mass Index 24.21 (68.04 kg, 167.64 cm) la1 MDM: 19:49 Patient medically screened. pm1 20:33 Data reviewed: vital signs. Data interpreted: Pulse oximetry: on room air is 100 %. pm1 Interpretation: normal. Counseling: I had a detailed discussion with the patient and/or guardian regarding: the historical points, exam findings, and any diagnostic results supporting the discharge/admit diagnosis, the need for outpatient follow up, a neurosurgeon, to return to the emergency department if symptoms worsen or persist or if there are any questions or concerns that arise at home. Administered Medications: 20:05 Drug: TORadol 60 mg Route: IM; Site: left gluteus; ca1 20:37 Follow up: Response: No adverse reaction; Pain is decreased ca1 20:10 Drug: Lidoderm 5 % (700 mg/patch) 1 patches Route: Topical; Site: left thigh; ca1 20:36 Follow up: Response: No adverse reaction; Pain is decreased ca1 20:20 Drug: Flexeril 10 mg Route: PO; ca1 20:37 Follow up: Response: No adverse reaction; Pain is decreased ca1 Disposition: 12/29 06:14 Co-signature as Attending Physician, Tre Charles MD I agree with the assessment and kdr plan of care. Disposition: 12/28/18 20:34 Discharged to Home. Impression: Low back pain. - Condition is Stable. - Discharge Instructions: Back Pain, Adult, Chronic Back Pain. - Prescriptions for Lidoderm 5 % Topical adhesive patch,medicated - apply 1 patch by TRANSDERMAL route once daily As needed; 30 Transdermal Patch. Cyclobenzaprine 10 mg Oral Tablet - take 1 tablet by ORAL route every 8 hours As needed; 30 tablet. Diclofenac Sodium 75 mg Oral Tablet, Delayed Release (E.C.) - take 1 tablet by ORAL route 2 times per day As needed; 30 tablet. - Medication Reconciliation Form, Thank You Letter, Antibiotic Education, Prescription Opioid Use form. - Follow up: Emergency Department; When: As needed; Reason: Worsening of condition. Follow up: Private Physician; When: 2 - 3 days; Reason: Recheck today's complaints, Continuance of care, Re-evaluation by your physician. - Problem is new. - Symptoms have improved. Signatures: Tre Charles MD MD kdr Arthur Moss RN RN la1 Galileo Leyva, SONIA HASH SLINGER pm1 Aimee Archibald RN RN ca1 Corrections: (The following items were deleted from the chart) 12/28 20:43 20:34 12/28/2018 20:34 Discharged to Home. Impression: Low back pain. Condition is ca1 Stable. Forms are Medication Reconciliation Form, Thank You Letter, Antibiotic Education, Prescription Opioid Use. Follow up: Emergency Department; When: As needed; Reason: Worsening of condition. Follow up: Private Physician; When: 2 - 3 days; Reason: Recheck today's complaints, Continuance of care, Re-evaluation by your physician. Problem is new. Symptoms have improved. pm1
[2018-12-28 21:59] VITALS: TEMP 97.4; O2SAT 100
[2018-12-28 22:00] VITALS: BP 121/72
--- OUTSIDE RECORDS SUMMARY | 2018-12-30 06:36 | XMS REPORT ---
[...] Start Date End Date Status Dosage Phenergan [facility] [address]4766-700 25mg Po Q 12 Oct 10, Active one tablet 3-01 hours 2018 Results No Known Results Summary Purpose eClinicalWorks Submission
--- OUTSIDE RECORDS SUMMARY | 2018-12-30 06:36 | XMS REPORT ---
:1975 [facility] Address [address] [place] [address] Dr. Galindo [address] [place] [id number] Care Team Providers Name Role Phone CARMEN DELANEY Unavailable Unavailable Problems This patient has no known problems. Allergies, Adverse Reactions, Alerts This patient has no known allergies or adverse reactions. Medications This patient has no known medications. Encounters Start End Encounter Admission Attending Care Care Encounter Date/Time Date/Time Type Type Clinicians Facility Department ID 2016-12-11 Inpatient [facility] [id number] 19:13:58 2016-11-22 Inpatient [facility] [id number] 15:22:01 2016-11-21 Inpatient [facility] [id number] 01:48:38 2016-11-21 Inpatient [facility] [id number] 01:48:30 2016-11-20 Inpatient [facility] [id number] 05:55:00 2018-04-03 2018-04-03 Outpatient [facility] [id number] 00:00:00 00:00:00 2018-01-09 2018-01-09 Outpatient [facility] [id number] 00:00:00 00:00:00 2017-12-26 2017-12-26 Outpatient [facility] [id number] 00:00:00 00:00:00 2017-12-25 2017-12-25 Outpatient [facility] [id number] 00:00:00 00:00:00 2017-11-21 2017-11-21 Outpatient [facility] [id number] 12:12:10 12:12:10 2017-11-16 2017-11-16 Outpatient [facility] [id number] 08:30:23 08:30:23 2017-11-12 2017-11-12 Outpatient [facility] [id number] 00:00:00 00:00:00 2017-11-08 2017-11-08 Outpatient [facility] [id number] 00:00:00 00:00:00 2017-10-11 2017-10-11 Outpatient [facility] [id number] 09:34:54 09:34:54 2017-10-10 2017-10-10 Outpatient [facility] [id number] 00:00:00 00:00:00 2017-10-03 2017-10-03 Outpatient [facility] [id number] 00:00:00 00:00:00 2017-09-28 2017-09-28 Outpatient [facility] [id number] 06:43:36 06:43:36 2017-09-28 2017-09-28 Outpatient [facility] [id number] 00:00:00 00:00:00 2017-09-28 2017-09-28 Outpatient [facility] [id number] 00:00:00 00:00:00 2017-09-26 2017-09-26 Outpatient [facility] [id number] 13:42:42 13:42:42 2017-09-26 2017-09-26 Outpatient [facility] [id number] 00:00:00 00:00:00 2017-09-21 2017-09-21 Outpatient [facility] [id number] 00:00:00 00:00:00 2017-09-19 2017-09-19 Outpatient [facility] [id number] 14:50:01 14:50:01 2017-09-19 2017-09-19 Outpatient [facility] [id number] 13:16:35 13:16:35 2017-09-12 2017-09-12 Outpatient [facility] [id number] 00:00:00 00:00:00 2017-08-24 2017-08-24 Outpatient [facility] [id number] 09:22:38 09:22:38 2017-07-27 2017-07-27 Outpatient [facility] [id number] 10:35:47 10:35:47 2017-07-05 2017-07-05 Outpatient [facility] [id number] 12:15:23 12:15:23 2017-07-03 2017-07-03 Outpatient [facility] [id number] 00:00:00 00:00:00 2017-05-23 2017-05-23 Outpatient [facility] [id number] 13:13:44 13:13:44 2017-05-02 2017-05-02 Outpatient [facility] [id number] 00:00:00 00:00:00 2017-04-25 2017-04-25 Outpatient [facility] [id number] 09:01:53 09:01:53 2017-04-17 2017-04-17 Outpatient [facility] [id number] 06:05:00 06:05:00 2017-04-17 2017-04-17 Outpatient [facility] [id number] 00:00:00 00:00:00 2017-04-16 2017-04-16 Outpatient [facility] [id number] 00:00:00 00:00:00 2017-04-13 2017-04-13 Outpatient [facility] [id number] 09:12:04 09:12:04 2017-04-03 2017-04-03 Outpatient [facility] [id number] 00:00:00 00:00:00 2017-03-27 2017-03-27 Outpatient [facility] [id number] 06:15:00 06:15:00 2017-03-27 2017-03-27 Outpatient [facility] [id number] 00:00:00 00:00:00 2017-03-19 2017-03-19 Outpatient [facility] [id number] 13:22:16 13:22:16 2017-03-19 2017-03-19 Outpatient [facility] [id number] 00:00:00 00:00:00 2017-03-12 2017-03-12 Outpatient [facility] [id number] 13:45:55 13:45:55 2017-03-09 2017-03-09 Outpatient [facility] [id number] 00:00:00 00:00:00 2017-03-08 2017-03-08 Outpatient [facility] [id number] 16:03:22 16:03:22 2017-03-08 2017-03-08 Outpatient [facility] [id number] 14:45:05 14:45:05 2017-02-23 2017-02-23 Outpatient [facility] [id number] 10:41:02 10:41:02 2017-02-23 2017-02-23 Outpatient [facility] [id number] 08:11:53 08:11:53 2017-02-23 2017-02-23 Outpatient [facility] [id number] 07:53:43 07:53:43 2017-02-23 2017-02-23 Outpatient [facility] [id number] 00:00:00 00:00:00 2017-02-08 2017-02-08 Outpatient [facility] [id number] 12:32:00 12:32:00 2017-01-24 2017-01-24 Outpatient [facility] [id number] 00:00:00 00:00:00 2017-01-23 2017-01-23 Outpatient [facility] [id number] 12:16:30 12:16:30 2017-01-22 2017-01-22 Outpatient [facility] [id number] 11:30:20 11:30:20 2017-01-15 2017-01-15 Outpatient [facility] [id number] 00:00:00 00:00:00 2017-01-09 2017-01-09 Outpatient [facility] [id number] 09:09:26 09:09:26 2017-01-04 2017-01-04 Outpatient [facility] [id number] 14:36:02 14:36:02 2017-01-02 2017-01-02 Outpatient [facility] [id number] 08:36:10 08:36:10 2016-12-27 2016-12-27 Outpatient [facility] [id number] 11:33:15 11:33:15 2016-12-22 2016-12-22 Outpatient [facility] [id number] 09:02:45 09:02:45 2016-12-11 2016-12-11 Outpatient [facility] [id number] 09:01:19 09:01:19 2016-12-11 2016-12-11 Inpatient [facility] [id number] 14:16:44 00:00:00 2016-12-07 2016-12-07 Outpatient [facility] [id number] 00:00:00 00:00:00 2016-12-06 2016-12-06 Outpatient [facility] [id number] 14:40:31 14:40:31 2016-12-04 2016-12-04 Outpatient [facility] [id number] 10:31:01 10:31:01 2016-11-27 2016-11-27 Outpatient [facility] [id number] 00:00:00 00:00:00 2016-11-20 2016-11-20 Outpatient [facility] [id number] 00:00:00 00:00:00 2016-11-20 2016-11-20 Outpatient [facility] [id number] 00:00:00 00:00:00 2016-11-17 2016-11-17 Outpatient [facility] [id number] 00:00:00 00:00:00 2016-10-12 2016-10-12 Outpatient [facility] [id number] 00:00:00 00:00:00 2016-10-10 2016-10-10 Outpatient [facility] [id number] 00:00:00 00:00:00 2016-10-10 2016-10-10 Outpatient [facility] [id number] 00:00:00 00:00:00 2016-10-10 2016-10-10 Outpatient [facility] [id number] 00:00:00 00:00:00 2016-09-15 2016-09-15 Outpatient [facility] [id number] 00:00:00 00:00:00 2016-08-30 2016-08-30 Outpatient [facility] [id number] 09:44:27 09:44:27 Results Test Description Test Time Test Comments Text Results Atomic Results Result Comments TISSUE EXAM 2018-08-19 Surgical Pathology Report 15:56:00 Case: [id number] Authorizing Provider: Carmen Delaney MD Collected: 08/14/2018 1452 Ordering Location: [facility] Endoscopy Received: 08/15/2018 0833 Services Pathologist: [...] (SEE COMMENT) Signing Pathologist Direct Phone Line: [phone] signed by Elsy Collier MD on 08/19/2018 [...] including lymphocytic colitis. Clinical correlation is recommended. [id number] X 4, [id number] abdominal pain, LLQ abdominal pain A. Duodenum [...] evaluated Immunohistochemistry technical testing was performed at [facility], Pathology Laboratory where it was [...] FINAL REPORT PATIENT ID: ABDOMEN/KUB, 16:12:00 Exam:->epigastric [id number] Exam: Abdominal 1 VIEW AP abdominal radiograph History: Constipation painReason for Comparison: None. Findings: Exam:->constipation Nonobstructive bowel gas pattern. , unspecified Mild amount retained stool. constipation type Multiple surgical clips. Impression: No acute osseous abnormality Mild amount of retained stool Signed: Luisito Shafer MDReport Verified Date/Time: 04/16/2018 16:12:35
--- OUTSIDE RECORDS SUMMARY | 2018-12-30 06:36 | XMS REPORT ---
[...] Start Date End Date Status Dosage Phenergan [facility] [id number] 25mg Po Q 12 Oct 29, Active one tablet 3-01 hours 2017 Results No Known Results Summary Purpose eClinicalWorks Submission
== END 2018-12-28 20:43 | disposition home or self-care (01) ==
LOC: ER 19:33
DX: M54.5 Low back pain (principal)
CPT/HCPCS: 96372; 99283

== ENCOUNTER 2019-06-23 20:40 | Emergency (ER) | payer OTHER ==
--- OUTSIDE RECORDS SUMMARY | 2019-06-23 20:42 | XMS REPORT ---
:1975 Author Organization [facility] t Address 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 Medications Ordered Filled Start Stop Current Ordering Indication Dosage Frequency Signature Comments Components Medication Medication Date Date Medication? Clinician (SIG) Name Name Tylenol # 3 Tylenol # 3 Yes Jerod jarvis ga Valles Encounters Start End Encounter Admission Attending Care Care Encounter Date/Time Date/Time Type Type Clinicians Facility Department ID 2016-12-[address] [facility] [id number] 19:13:58 2016-11-[address] [facility] [id number] 15:22:01 2016-11-[address] [facility] [id number] 01:48:38 2016-11-[address] [facility] [id number] 01:48:30 2016-11-20 Inpatient [facility] [id number] 05:55:00 2018-04-03 2018-04-[address] [facility] [id number] 00:00:00 00:00:00 2018-03-12 2018-03-12 [id number] 13:30:00 13:30:00 [facility] 2018-01-09 2018-01-[address] [facility] [id number] 00:00:00 00:00:00 2017-12-26 2017-12-[address] [facility] [id number] 00:00:00 00:00:00 2017-12-25 2017-12-25 Outpatient [facility] [id number] 00:00:00 00:00:00 2017-11-21 2017-11-21 [facility] [id number] 12:12:10 12:12:10 2017-11-19 2017-11-19 [id number] 09:00:00 09:00:00 [facility] 2017-11-16 2017-11-16 Outpatient [facility] [id number] 08:30:23 08:30:23 2017-11-12 2017-11-12 [id number] 14:22:00 14:22:00 [facility] 2017-11-12 2017-11-12 Outpatient [facility] [id number] 00:00:00 00:00:00 2017-11-08 2017-11-08 Outpatient [facility] [id number] 00:00:00 00:00:00 2017-11-05 2017-11-05 [id number] 10:03:00 10:03:00 [facility] 2017-10-29 2017-10-29 [id number] 08:00:00 08:00:00 [facility] 2017-10-11 2017-10-11 Outpatient [facility] [id number] 09:34:54 09:34:54 2017-10-10 2017-10-10 Outpatient [facility] [id number] 00:00:00 00:00:00 2017-10-03 2017-10-03 Outpatient [facility] [id number] 00:00:00 00:00:00 2017-09-28 2017-09-28 Outpatient [facility] [id number] 06:43:36 06:43:36 2017-09-28 2017-09-28 [facility] [id number] 00:00:00 00:00:00 2017-09-28 2017-09-28 [facility] [id number] 00:00:00 00:00:00 2017-09-26 2017-09-26 Outpatient [facility] [id number] 13:42:42 13:42:42 2017-09-26 2017-09-[address] [facility] [id number] 00:00:00 00:00:00 2017-09-21 2017-09-[address] [facility] [id number] 00:00:00 00:00:00 2017-09-19 2017-09-19 Outpatient [facility] [id number] 14:50:01 14:50:01 2017-09-19 2017-09-[address] [facility] [id number] 13:16:35 13:16:35 2017-09-12 2017-09-[address] [facility] [id number] 00:00:00 00:00:00 2017-08-24 2017-08-[address] [facility] [id number] 09:22:38 09:22:38 2017-07-27 2017-07-27 Outpatient [facility] [id number] 10:35:47 10:35:47 2017-07-05 2017-07-05 Outpatient [facility] [id number] 12:15:23 12:15:23 2017-07-03 2017-07-[address] [facility] [id number] 00:00:00 00:00:00 2017-05-23 2017-05-23 Outpatient [facility] [id number] 13:13:44 13:13:44 2017-05-02 2017-05-[address] [facility] [id number] 00:00:00 00:00:00 2017-04-25 2017-04-[address] [facility] [id number] 09:01:53 09:01:53 2017-04-17 2017-04-17 Outpatient [facility] [id number] 06:05:00 06:05:00 2017-04-17 2017-04-[address] [facility] [id number] 00:00:00 00:00:00 2017-04-16 2017-04-[address] [facility] [id number] 00:00:00 00:00:00 2017-04-13 2017-04-[address] [facility] [id number] 09:12:04 09:12:04 2017-04-03 2017-04-[address] [facility] [id number] 00:00:00 00:00:00 2017-03-27 2017-03-27 Outpatient [facility] [id number] 06:15:00 06:15:00 2017-03-27 2017-03-[address] [facility] [id number] 00:00:00 00:00:00 2017-03-19 2017-03-[address] [facility] [id number] 13:22:16 13:22:16 2017-03-19 2017-03-[address] [facility] [id number] 00:00:00 00:00:00 2017-03-12 2017-03-[address] [facility] [id number] 13:45:55 13:45:55 2017-03-09 2017-03-[address] [facility] [id number] 00:00:00 00:00:00 2017-03-08 2017-03-[address] [facility] [id number] 16:03:22 16:03:22 2017-03-08 2017-03-[address] [facility] [id number] 14:45:05 14:45:05 2017-02-23 2017-02-[address] [facility] [id number] 10:41:02 10:41:02 2017-02-23 2017-02-[address] [facility] [id number] 08:11:53 08:11:53 2017-02-23 2017-02-[address] [facility] [id number] 07:53:43 07:53:43 2017-02-23 2017-02-23 Outpatient [facility] [id number] 00:00:00 00:00:00 2017-02-08 2017-02-[address] [facility] [id number] 12:32:00 12:32:00 2017-01-24 2017-01-[address] [facility] [id number] 00:00:00 00:00:00 2017-01-23 2017-01-[address] [facility] [id number] 12:16:30 12:16:30 2017-01-22 2017-01-22 Outpatient [facility] [id number] 11:30:20 11:30:20 2017-01-15 2017-01-[address] [facility] [id number] 00:00:00 00:00:00 2017-01-09 2017-01-[address] [facility] [id number] 09:09:26 09:09:26 2017-01-04 2017-01-[address] [facility] [id number] 14:36:02 14:36:02 2017-01-02 2017-01-[address] [facility] [id number] 08:36:10 08:36:10 2016-12-27 2016-12-[address] [facility] [id number] 11:33:15 11:33:15 2016-12-22 2016-12-[address] [facility] [id number] 09:02:45 09:02:45 2016-12-11 2016-12-[address] [facility] [id number] 09:01:19 09:01:19 2016-12-11 2016-12-11 Inpatient [facility] [id number] 14:16:44 00:00:00 2016-12-07 2016-12-[address] [facility] [id number] 00:00:00 00:00:00 2016-12-06 2016-12-[address] [facility] [id number] 14:40:31 14:40:31 2016-12-04 2016-12-[address] [facility] [id number] 10:31:01 10:31:01 2016-11-27 2016-11-[address] [facility] [id number] 00:00:00 00:00:00 2016-11-20 2016-11-[address] [facility] [id number] 00:00:00 00:00:00 2016-11-20 2016-11-[address] [facility] [id number] 00:00:00 00:00:00 2016-11-17 2016-11-[address] [facility] [id number] 00:00:00 00:00:00 2016-10-12 2016-10-[address] [facility] [id number] 00:00:00 00:00:00 2016-10-10 2016-10-[address] [facility] [id number] 00:00:00 00:00:00 2016-10-10 2016-10-[address] [facility] [id number] 00:00:00 00:00:00 2016-10-10 2016-10-[address] [facility] [id number] 00:00:00 00:00:00 2016-09-15 2016-09-[address] [facility] [id number] 00:00:00 00:00:00 2016-08-30 2016-08-[address] [facility] [id number] 09:44:27 09:44:27 Results Test Description Test Time Test Comments Text Results Atomic Results Result Comments TISSUE EXAM 2018-08-19 Surgical Pathology Report 15:56:00 Case: [id number] Authorizing Provider: Carmen Finnegan MD Collected: 08/14/2018 1452 Ordering Location: [facility] Endoscopy Received: 08/15/2018 0833 Services Pathol ogist: Elsy Collier MD Specimens: A) - Duodenum, bx B) - Stomach, bx C) - Biopsy, Terminal Ileum, bx D) - Colon Biopsy, Random, bx A. DUODENUM, BIOPSY: - DUODENAL MUCOSA WITH FOCAL M ILD INCREASE IN INTRAEPITHELIAL LYMPHOCYTES (SEE COMMEN T) - NEGATIVE FOR VILLOUS BLUNT ING B. STOMACH, BIOPSY: - CHRONI C INACTIVE GASTRITIS - NEGA TIVE FOR H. PYLORI BY WARJAYE-VANESSA RRY STAINC. TERMINAL ILEUM, BIOP SY: - SMALL BOWEL MUCOSA WITH NO SIGNIFICANT PATHOLOGIC PARIKH ES - NEGATIVE FOR VILLOUS BLUNT ING - NEGATIVE FOR SIGNIFICANT INCREASE OF INTRAEPITHELIAL LYMPHOCYTESD. COLON, RANDOM, BIOPSY: - FOCAL MILD INCR EASE IN INTRAEPITHELIAL LYMPHOCYT ES (SEE COMMENT) Signing Pathologist Direct Phone Sabra e: [phone] s igned by Elsy Collier MD on 08/20/19 19 at 3:56 PMA. The finding of inc reased intraepithelial lymphocytes alone is non-specific and may be associated a wide range of conditions, including celiac disease, bacterial overgrowt h, nonsteroidal antiinflammator y drug damage, reaction to Helicoba cter pylori infection, tropical s prue, and chronic inflammatory bow el disease. Clinical correlatio n is recommended. D. The finding of focal mildly increased intraepithelial lymphocytes in colonic mucosa is also non-specfic. The possible et iology includes drug, infectious, a nd automimmune disease includin g lymphocytic colitis. Clinica l correlation is recommended. 84046 X 4, [id number] abdomin al pain, LLQ abdominal pain A. Duodenum biopsy. B. Stomach biopsy. C. Biopsy, terminal ileum. D. Colon biopsy, randomPart A. Received in formalin labeled with the patient's name, accessio n number and "duodenum" are mu ltiple guerrero soft tissue fragments ra nging from 0.2-0.4 cm, which are submitted in toto in A1.Part B. Received in formalin labeled with the patient's name, accessio n number and "stomach" are fou r irregular guerrero soft tissue fragments ranging from 0.2-0 .5 cm, which are submitted in toto in B1. Part C. Received in formalin labeled with the patient's n riley, accession number and "biopsy , terminal ileum" is a 0.4 cm guerrero soft tissue fragment, which is submitted in toto in C1.Part D. Received in formalin labeled with the patient's name, accessio n number and "colon biopsy, ra ndom" are multiple guerrero soft tissue fragments ranging from 0.2-0 .5 cm, which are submitted in toto in D1. CG/ewThe interpretation of t his case included the use of immunohistochemistry or spec ial stains.WARTHIN-STARRYControl Slides Examined: In-house k nown positive controls were evalu ated along with the test tissue. These control slides run alongside of the patients sample show appropriate staining. Operation Specialist al positive and negative contro ls when available are evaluated Immunohistochemistry technic al testing was performed at [facility], Pathology Laboratory where i t was developed and its performanc e characteristics were determi les. It has not been cleared or approved by the U.S. Food an d Drug Administration. The FDA has determined that such clearan ce or approval is not necessary. T he test is used for clinical purposes. It should not be regarded as investigational or for research. This laboratory is certified under the Clinical Laboratory Improvement Amend ments of 1988 (CLIA-88) as qualifi ed to perform high complexity clin ical laboratory testing. RAD, 2018-04-16 Reason for FINAL REPORT PATIENT ID: [id number]/KUB, 16:12:00 Exam:->epigastric [id number] Exam: Abdomi nal 1 VIEW AP abdominal radiograph History: Constip ation painReason for Comparison: None. Findings : Exam:->constipation Nonobstructive bowel gas pattern. , unspecified Mild amount retained stool. constipation type Multiple surgical clips . Impression: No acute osseous abnormality Mild amount of retained stool Signed: Luisito Boyd ch MDR[place] Verified Date/Time: 04/16/2018 16:12 :35 19 04:12 PM
--- OUTSIDE RECORDS SUMMARY | 2019-06-23 20:42 | XMS REPORT ---
:1975 Author Organization [employer] Care Team Providers Name Role Phone Jerod Valles Provider Role Unavailable Allergies, Adverse Reactions, Alerts Substance Reaction Event Type N.K.D.A. Info Not Available Non Drug Allergy Problems Problem Type Condition Code Onset Dates Condition Statu s Assessment Pain, joint, shoulder, left M25.512 Active Assessment Tear of left rotator cuff, M75.102 A ctive unspecified tear extent Medications Medication Code System Code Instructions Start Date End Date Status Dosage Phenergan [facility] [address] 25mg Po Q 12 Oct 29, Active one ta blet 3-01 hours 2018 Results No Known Results Summary Purpose [employer] Submission
--- OUTSIDE RECORDS SUMMARY | 2019-06-23 20:43 | XMS REPORT | Summary of Care ---
:1975 Author Organization [facility] Address [address] [place] [address] Care Team Providers Name Role Phone Pcp, Does Not Have A Primary Care Provider Encounter Details Date Type Department Care Team Description 04/07/2019 Hospital [facility] Rad[facility] [address] [place] [address] [place] [address] [place], [place] [phone] [address] [phone] Allergies Active Allergy Reactions Severity Noted Date Comments Adhesive Tape-Silicones Rash High 02/08/2018 Blis tered when abdominal bandage left on for a week. documented as of this encounter (statuses as of 04/08/2019) Medications No known medicationsdocumented as of this encounter (statuses as of 04/08/2019) Active Problems Not on filedocumented as of this encounter (statuses as of 04/08/2019) Social History Tobacco Use Types Packs/Day Years Used Date Never Assessed Sex Assigned at Date Recorded Not on file Job Start Date Occupation Industry Not on file Not on file Not on file Travel History Travel Start Travel End No recent travel history available. documented as of this encounter Last Filed Vital Signs Not on filedocumented in this encounter Plan of Treatment Date Type Specialty Care Team Description 04/09/2019 Office Visit Cardiology Greg Samuel M D [address] [facility] [address] [place], [place] [address] [phone] Name Type Priority Associated Diagnoses Date/Ti me XR SHOULDER <2 VW LEFT IMAGING Routine Left shoulder pain , 04/07/2019 2:44 PM unspecified chronicity [employer] Name Type Priority Associated Diagnoses Order S chedule XR SHOULDER <2 VW IMAGING Routine Left shoulder pain, 1 O ccurrences starting LEFT unspecified chronicity 04/07 until 04/07/2019 Health Maintenance Due Date Last Done Comments DTaP,Tdap,and Td Vaccines (1 - 1985 Tdap) PAP SMEAR 03/16/2008 03/16/2005 Breast Cancer Screening 2014 (MAMMOGRAM) INFLUENZA VACCINE (#1) 2018 PNEUMOCOCCAL 0-64 YEARS COMBINED Aged Out No longer eligible based on SERIES patient's age to complete this topic documented as of this encounter Results Not on filedocumented in this encounter Visit Diagnoses Diagnosis Left shoulder pain, unspecified chronici ty documented in this encounter Insurance Payer Benefit Plan / Subscriber ID Effective Phone Address T e Group Dates [facility] xxxxxxxxx 2019-Prese [address] Medic aid [facility] [place] [id number] 1 MANAGED MEDICAID [place], [place] MEDICAID [id number] documented as of this encounter
--- OUTSIDE RECORDS SUMMARY | 2019-06-23 20:43 | XMS REPORT | Summary of Care ---
:1975 Author Organization [facility] Address [address] [place] [address] Care Team Providers Name Role Phone Pcp, Does Not Have A Primary Care Provider Reason for Referral Radiology Services (Routine) Status Reason Specialty Diagnoses / Referred By Referred To Procedures Contact Contact New Request Diagnostic Diagnoses Left shoulder pain, unspecified chronicity Arnulfo Montoya Radiology Procedures XR SHOULDER <2 VW IRENA Hurtado MD [address] [place] [address] [place] [address] Reason for Visit Reason Comments New Patient left shoulder pain Encounter Details Date Type Department Care Team Description 04/07/2019 Office Visit [facility] Orthopaedic Arnulfo Montoya eft shoulder pain, Surgery- Krystina Hurtado MD unspecified chronicity [address] [place] (Primary Dx) [address] [facility] [place] [address] [place], [place] [phone] [address] Allergies Active Allergy Reactions Severity Noted Date [...] Sign Reading Time Taken Comments Blood Pressure 131/83 04/07/2019 2:17 PM SENIOR TECHNOLOGIST Pulse - - Temperature - - Respiratory Rate - - Oxygen Saturation - - Inhaled Oxygen Concentration - - Weight - - Height 162.6 cm (5' 4") 04/07/2019 2:17 PM SENIOR TECHNOLOGIST Body Mass Index - - documented in this encounter Progress Notes Arnulfo Montoya MD - 04/07/2019 2:15 PM CST Cc: Left Shoulder pain Mildred Caldwell is a 43 year old female. Shoulder Pain The pain is present in the left shoulder. This is a chronic problem. The current episode started more than 1 year ago. There has been a history of trauma. The problem occurs constantly. The problem hasbeen gradually worsening. The quality of the pain is described as aching, burning and sharp. The pain is at a severity of 8/10. The pain is moderate. Associated symptoms include an inability to bear weight, joint swelling, a limited range of motion, numbness and tingling. The symptoms are aggravated by activity. She has tried NSAIDS, oral narcotics, rest, movement, OTC pain meds and acetaminophen forthe symptoms. The treatment provided mild relief. Allergies Mildred has no allergies on file. Medications No outpatient medications prior to visit. No facility-administered medications prior to visit. Histories No past medical history on file. No past surgical history on file. Social History Socioeconomic History Marital status: Single Spouse name: Not on file Number of children: Not on file Years of education: Not on file Highest education level: Not on file Occupational History Not on file Social Needs Financial resource strain: Not on file Food insecurity: Worry: Not on file Inability: Not on file Transportation needs: Medical: Not on file Non-medical: Not on file Tobacco Use Smoking status: Not on file Substance and Sexual Activity Alcohol use: Not on file Drug use: Not on file Sexual activity: Not on file Lifestyle Physical activity: Days per week: Not on file Minutes per session: Not on file Stress: Not on file Relationships Social connections: Talks on phone: Not on file Gets together: Not on file Attends adventist service: Not on file Active member of club or organization: Not on file Attends meetings of clubs or organizations: Not on file Relationship status: Not on file Intimate partner violence: Fear of current or ex partner: Not on file Emotionally abused: Not on file Physically abused: Not on file Forced sexual activity: Not on file Other Topics Concern Not on file Social History Narrative Not on file No family history on file. Review of Systems Constitutional: Negative. HENT: Negative. Eyes: Negative. Respiratory: Negative. Breasts: Negative. Cardiovascular: Negative. Gastrointestinal: Negative. Genitourinary: Negative. Musculoskeletal: Positive for myalgias. Skin: Negative. Neurological: Positive for tingling and numbness. Psychiatric/Behavioral: Negative. Endocrine: Endocrine negative Vital Signs There were no vitals taken for this visit. Physical Exam Musculoskeletal: Left shoulder: She exhibits decreased range of motion, tenderness, pain, spasm and decreased strength. Cervical back: She exhibits pain and spasm. General: Well-developed well-nourished oriented to person place and time HEENT normocephalic atraumatic atraumatic pupils equal round reactive to light extraocular muscles intact Cervical thoracic and lumbar spine without focal deficit normal kyphosis and lordosis Chest clear to auscultation and percussion Cardiovascular regular rate and rhythm without gallop rub or murmur soft without organomegaly Normal bowel sounds Neurologic: Focal myotome or dermatomal deficits Vascular: Intact symmetrical bilateral upper and lower extremities Skin without stasis varicosities or breakdown Extremities without cyanosis clubbing or edema Lymphatics no peripheral lymphedema Psych normal mood and affect. Neurovascular function is intact. To include brisk capillary refill warm pink skin active motor function and sensory function intact. Nursing note and vitals reviewed. Assessment/Plan Cervical Radiculopathy Referral for an EMg/NCV of the LUE / Will also order an MRI of the left shoulder with and without contrast. Follow up within ten days of each procedure for results. OR TECHNOLOGIST documented in this encounter Plan of Treatment Date Type Specialty Care Team Description 04/09/2019 Office Visit Cardiology Greg Samuel M D [address] [address] [phone] Health Maintenance Due Date Last Done Comments DTaP,Tdap,and Td Vaccines (1 - 1985 Tdap) PAP SMEAR 03/16/2008 03/16/2005 Breast Cancer Screening 2014 (MAMMOGRAM) INFLUENZA VACCINE (#1) 2018 PNEUMOCOCCAL 0-64 YEARS COMBINED Aged Out No longer eligible based on SERIES patient's age to complete this topic documented as of this encounter Results XR SHOULDER <2 VW LEFT (04/07/2019 2:44 PM SENIOR TECHNOLOGIST) Specimen Narrative Performed At This result has an attachment that is no t available. No fractures or dislocations PACS Performing Organization Address City/State/Zipcode Phone Number PACS documented in this encounter Visit Diagnoses Diagnosis Left shoulder pain, unspecified chronici ty - Primary documented in this encounter Insurance Payer Benefit Plan / Subscriber ID Effective Phone Address T ype Group Dates [facility] x[facility] 2019-Prese [address] Medic aid HEALTH CHOICE - HEALTH [place] [id number] 1 MANAGED MEDICAID [place], [place] MEDICAID [id number] documented as of this encounter
--- OUTSIDE RECORDS SUMMARY | 2019-06-23 20:43 | XMS REPORT | Summary of Care ---
:1975 Author Organization [facility] Address [address] [place] [address] Care Team Providers Name Role Phone Pcp, Does Not Have A Primary Care Provider Reason for Referral (Routine) Status Reason Specialty Diagnoses / Referred By Referred To Procedures Contact Contact New Request Electroneurodiagnostic Diagnoses Left shoulder pain, unspecified chronicity Radha Montoya Emg/Ncv Procedures EMGNCV Arnulfo Hurtado MD Procedures [address] [place] [address] [place], [place] Phone: [phone] Phone: Reason for Visit Reason Comments Referral/consult Encounter Details Date Type Department Care Team Description 04/07/2019 Telephone [facility] Orthopaedic Arnulfo Montoya , Referral/consult Surgery- Krystina SUAREZ [address] [place] [address]36 [facility] [phone] [place] [address] Allergies Active Allergy Reactions Severity Noted Date Comments Adhesive Tape-Silicones Rash High 02/08/2018 Blis tered when abdominal bandage left on for a week. documented as of this encounter (statuses as of 04/07/2019) Medications No known medicationsdocumented as of this encounter (statuses as of 04/07/2019) Active Problems Not on filedocumented as of this encounter (statuses as of 04/07/2019) Social History Tobacco Use Types Packs/Day Years [...] Office Visit Cardiology Greg Samuel M D [address] [place] [address] [place] [address] 15 [phone] Name Type Priority Associated Diagnoses Order S chedule EMGNCV EMG Routine Left shoulder pain, unspecif ied 1 Occurrences starting chronicity 04/07/2019 unti l 06/06/2019 Health Maintenance Due Date Last Done Comments [...] / Subscriber ID Effective Phone Address T [facility] xxxxxxxxx 2019-Prese [address]OX Medic aid [facility] CHO[facility] - HE[facility] CHOICE nt [id number] 1 MANAGED MEDICAID [place], [place] MEDICAID [address] documented as of this encounter
--- OUTSIDE RECORDS SUMMARY | 2019-06-23 20:43 | XMS REPORT | Summary of Care ---
:1975 Author Organization [facility] Address [address] [place] [address] Care Team Providers Name Role Phone Unavailable Primary Care Provider Unavailable Encounter Details Date Type Department Care Team Description 03/11/2019 Orders Only [facility] Doctor Unassigned, No 301 [facility] [place] [address] [address] [place] [address] Allergies Not on Filedocumented as of this encounter (statuses as of 03/13/2019) Medications Not on filedocumented as of this encounter (statuses as of 03/13/2019) Active Problems Not on filedocumented as of this encounter (statuses as of 03/13/2019) Social History Tobacco Use Types Packs/Day Years [...] Office Visit Cardiology Greg Samuel M D [address] [place] [address] [place] [address] 15 [phone] Health Maintenance Due Date Last Done Comments DTaP,Tdap,and Td Vaccines (1 - 1985 Tdap) PAP SMEAR 03/16/2008 03/16/2005 Breast Cancer Screening 2014 (MAMMOGRAM) INFLUENZA VACCINE (#1) 2018 PNEUMOCOCCAL 0-64 YEARS COMBINED Aged Out No longer eligible based on SERIES patient's age to complete this topic documented as of this encounter Procedures Procedure Name Priority Date/Time Associated Diagnosis Comme nts EXTERNAL PROVIDER - ADC Routine 03/11/2019 12:01 AM FOIL WRAPPER REFERRAL documented in this encounter Results Not on filedocumented in this encounter
--- OUTSIDE RECORDS SUMMARY | 2019-06-23 20:43 | XMS REPORT ---
[...] Start Date End Date Status Dosage Phenergan [facility] [id number] 25mg Po Q 12 Sept 10, Active one ta blet 3-01 hours 2017 Results No Known Results Summary Purpose eClinicalWorks Submission
--- OUTSIDE RECORDS SUMMARY | 2019-06-23 20:43 | XMS REPORT | Summary of Care ---
:1975 Author Organization [facility] Address [address] [place] [address] Care Team Providers Name Role Phone Pcp, Does Not Have A Primary Care Provider Reason for Referral Radiology Services (Routine) Status Reason Specialty Diagnoses / Referred By Referred To Procedures Contact Contact New Request Diagnostic Diagnoses Left shoulder pain, unspecified chronicity Arnulfo Montoya Radiology Procedures XR SHOULDER <2 VW IRENA Hurtado MD [address] [place] [address] [place] [address] Reason for Visit Reason Comments New Patient left shoulder pain Encounter Details Date Type Department Care Team Description 04/07/2019 Office Visit [facility] Orthopaedic Arnulfo Montoya eft shoulder pain, Surgery- Krystina Hurtado MD unspecified chronicity [address] [place], [address] (Primary Dx) [address] [facility] [place] [address] [place], [place] [phone] [address] Allergies Active Allergy Reactions Severity Noted [...] Comments Blood Pressure 131/83 04/07/2019 2:17 PM FIRER WATERTENDER Pulse - - Temperature - - Respiratory Rate - - Oxygen Saturation - - Inhaled Oxygen Concentration - - Weight - - Height 162.6 cm (5' 4") 04/07/2019 2:17 PM FIRER WATERTENDER Body Mass Index - - documented in [...] file Gets together: Not on file Attends scientology service: Not on file Active member of [...] ten days of each procedure for results. R WATERTENDER documented in this encounter Plan of Treatment Date Type Specialty Care Team Description 04/09/2019 Office Visit Cardiology Greg Samuel M D [address] [place] [address] [phone] Health Maintenance Due Date Last Done Comments DTaP,Tdap,and Td Vaccines (1 - 1985 Tdap) PAP SMEAR 03/16/2008 03/16/2005 Breast Cancer Screening 2014 (MAMMOGRAM) INFLUENZA VACCINE (#1) 2018 PNEUMOCOCCAL 0-64 YEARS COMBINED Aged Out No longer eligible based on SERIES patient's age to complete this topic documented as of this encounter Results XR SHOULDER <2 VW LEFT (04/07/2019 2:44 PM FIRER WATERTENDER) Specimen Narrative Performed At This result has an attachment that is no t available. No fractures or dislocations PACS Performing Organization Address City/State/Zipcode Phone Number PACS documented in this encounter Visit Diagnoses Diagnosis Left shoulder pain, unspecified chronici ty - Primary documented in this encounter Insurance Payer Benefit Plan / Subscriber ID Effective Phone Address T ype Group Dates [facility] xxxxxxxxx 2019-Prese [address]. [address]OX Medic aid HEALTH CHOICE - HEALTH CHOICE nt [id number] 1 MANAGED MEDICAID [place], [place] MEDICAID [address] documented as of this encounter
--- OUTSIDE RECORDS SUMMARY | 2019-06-23 20:43 | XMS REPORT | Summary of Care ---
:1975 Author Organization [facility] Address [address] [place] [address] Care Team Providers Name Role Phone Pcp, Does Not Have A Primary Care Provider Encounter Details Date Type Department Care Team Description 04/07/2019 Orders Only [facility] Doctor Unassigned, No 301 [facility] [place] [address] [address] [place] [phone] Allergies Not on Filedocumented as of this encounter (statuses as of 04/07/2019) Medications Not on filedocumented as of this [...] Treatment Date Type Specialty Care Team Description 04/07/2019 Office Visit Orthopedic Surgery Kortney Montoya MD [address] [facility] [place] [phone] 04/09/2019 Office Visit Cardiology Greg Samuel M D [address] [place] [address] [address] [place], [place] [address] [phone] Health Maintenance Due Date Last Done Comments DTaP,Tdap,and Td Vaccines ( - 1985 Tdap) PAP SMEAR 03/16/2008 03/16/2005 Breast Cancer Screening 2014 (MAMMOGRAM) INFLUENZA VACCINE (#1) 2018 PNEUMOCOCCAL 0-64 YEARS COMBINED Aged Out No longer eligible based on SERIES patient's age to complete this topic documented as of this encounter Procedures Procedure Name Priority Date/Time Associated Diagnosis Comme nts ASSIGNMENT OF BENEFITS Routine 04/07/2019 1:58 PM FORGE HELPER documented in this encounter Results Not on filedocumented in this encounter
--- OUTSIDE RECORDS SUMMARY | 2019-06-23 20:43 | XMS REPORT ---
:1975 Author Organization e[employer] Care Team Providers Name Role Phone Jerod Valles Provider Role Unavailable Allergies, Adverse Reactions, Alerts Substance Reaction Event Type N.K.D.A. 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
--- OUTSIDE RECORDS SUMMARY | 2019-06-23 20:44 | XMS REPORT | Summary of Care ---
:1975 Author Organization [facility] Address [address] [place] [address] Care Team Providers Name Role Phone Pcp, Does Not Have A Primary Care Provider Reason for Visit Reason Comments Orders Encounter Details Date Type Department Care Team Description 05/05/2019 Telephone [facility] Orthopaedic Arnulfo Montoya MD Orders Surgery- [place] [address] [facility] [address] [facility], [place] [address] [place] [address] [phone] Allergies Active Allergy Reactions Severity Noted Date Comments Adhesive Tape-Silicones Rash High 02/08/2018 Blis tered when abdominal bandage left on for a week. documented as of this encounter (statuses as of 05/08/2019) Medications No known medicationsdocumented as of this encounter (statuses as of 05/08/2019) Active Problems Not on filedocumented as of this encounter (statuses as of 05/08/2019) Social History Tobacco Use Types Packs/Day Years Used Date Never Smoker Smokeless Tobacco: Never Used Alcohol Use Drinks/Week oz/Week Comments Yes Alcohol Habits Answer Date Recorded How often do you have a drink containing alcohol? 2-4 times a month 04/09/2019 How many drinks containing alcohol do you have on a Not aske d typical day when you are drinking? How often do you have six or more drinks on one Not asked occasion? Sex Assigned at Date Recorded Not on file Job Start Date Occupation Industry Not on file Not on file Not on file Travel History Travel Start Travel End No recent travel history available. documented as of this encounter Last Filed Vital Signs Not on filedocumented in this encounter Plan of Treatment Date Type Specialty Care Team Description 05/20/2019 Appointment Electroneurodiagnostic (Data Analyst Report Writer), Adc Emg/Ncv Testing Health Maintenance Due Date Last Done Comments DTaP,Tdap,and Td Vaccines (1 - 1985 Tdap) PAP SMEAR 03/16/2008 03/16/2005 Breast Cancer Screening 2014 (MAMMOGRAM) INFLUENZA VACCINE (#1) 2020 Postponed from 10/20/2018 (Refused) PNEUMOCOCCAL 0-64 YEARS COMBINED Aged Out No longer eligible based on SERIES patient's age to complete this topic documented as of this encounter Results Not on filedocumented in this encounter Insurance Payer Benefit Plan / Subscriber ID Effective Phone Address [facility] xxxxxxxxx 2017-Laisha P.OS[address]annon BOX Medic aid HEALTH CHOICE - HEALTH CHOICE nt [id number] 1 [facility] MEDICAID [place], [place] MEDICAID [phone] documented as of this encounter
--- OUTSIDE RECORDS SUMMARY | 2019-06-23 20:44 | XMS REPORT | Summary of Care ---
:1975 Author Organization [facility] Address [address] [place] [address] Care Team Providers Name Role Phone Pcp, Does Not Have A Primary Care Provider Reason for Visit Reason Comments Orders Encounter Details Date Type Department Care Team Description 05/15/2019 Telephone [facility] Orthopaedic Arnulfo Montoya MD Orders Surgery- [place] [address] [facility] 2327 [facility], [place] [address]36 [place] [address] [phone] Allergies Active Allergy Reactions Severity Noted Date Comments Adhesive Tape-Silicones Rash High 02/08/2018 Blis tered when abdominal bandage left on for a week. documented as of this encounter (statuses as of 05/15/2019) Medications No known medicationsdocumented as of this encounter (statuses as of 05/15/2019) Active Problems Not on filedocumented as of this encounter (statuses as of 05/15/2019) Social History Tobacco Use Types Packs/Day Years [...] filedocumented in this encounter Plan of Treatment Health [...] / Subscriber ID Effective Phone Address T [facility] xxxxxxxxx 2017-Laisha P.OShannon BOX Medic aid HEALTH CHOICE - HEALTH CHOICE nt [id number] 1 MANAGED MEDICAID [place], [place]ID [address] documented as of this encounter
--- OUTSIDE RECORDS SUMMARY | 2019-06-23 20:44 | XMS REPORT | Summary of Care ---
:[address] [facility] Address [address] [place] [address] Care Team Providers Name Role Phone Pcp, Does Not Have A Primary Care Provider Reason for Referral MRI/CAT Scan (Routine) Status Reason Specialty Diagnoses / Referred By Referred To Procedures Contact Contact New Request Diagnostic Diagnoses Left shoulder pain, unspecified chronicity Arnulfo Montoya Radiology Procedures MR SHOULDER LEFT W WO MEDARDO Hurtado MD [address] [facility] [place] [address] Radiology Services (Routine) Status Reason Specialty Diagnoses / Referred By Referred To Procedures Contact Contact New Request Diagnostic Diagnoses Left shoulder pain, unspecified chronicity Arnulfo Montoya Radiology Procedures XR SHOULDER <2 VW LEFT MD [facility] [address] [place] [address] [place] [address] Reason for Visit Reason Comments New Patient left shoulder pain Encounter Details Date Type Department Care Team Description 04/07/2019 Office Visit [facility] Orthopaedic Arnulfo Montoya eft shoulder pain, Surgery- Krystina Hurtado MD unspecified chronicity [address] (Primary Dx) [address] [facility] [place] [address] [place], [place] [phone] [address] Allergies Active Allergy Reactions Severity Noted Date Comments Adhesive Tape-Silicones Rash High 02/08/2018 Blis tered when abdominal bandage left on for a week. documented as of this encounter (statuses as of 04/09/2019) Medications No known medicationsdocumented as of this encounter (statuses as of 04/09/2019) Active Problems Not on filedocumented as of this encounter (statuses as of 04/09/2019) Social History Tobacco Use Types Packs/Day Years [...] Comments Blood Pressure 131/83 04/07/2019 2:17 PM GOVERNMENT RELATIONS ANALYST Pulse - - Temperature - - Respiratory Rate - - Oxygen Saturation - - Inhaled Oxygen Concentration - - Weight - - Height 162.6 cm (5' 4") 04/07/2019 2:17 PM GOVERNMENT RELATIONS ANALYST Body Mass Index - - documented in [...] file Gets together: Not on file Attends bahai service: Not on file Active member of [...] ten days of each procedure for results. RNMENT RELATIONS ANALYST documented in this encounter Plan of Treatment Name Type Priority Associated Diagnoses Order S chedule MR SHOULDER LEFT W WO IMAGING Routine Left shoulder pain, Expected: 04/09/2019, CONTRAST unspecified chronicity Expir es: 04/09/2020 Health Maintenance Due Date Last Done Comments DTaP,Tdap,and Td Vaccines (1 - 1985 Tdap) PAP SMEAR 03/16/2008 03/16/2005 Breast Cancer Screening 2014 (MAMMOGRAM) INFLUENZA VACCINE (#1) 2020 Postponed from 10/20/2018 (Refused) PNEUMOCOCCAL 0-64 YEARS COMBINED Aged Out No longer eligible based on SERIES patient's age to complete this topic documented as of this encounter Results XR SHOULDER <2 VW LEFT (04/07/2019 2:44 PM GOVERNMENT RELATIONS ANALYST) Specimen Narrative Performed At This result has an attachment that is no t available. No fractures or dislocations PACS Performing Organization Address City/State/Zipcode Phone Number PACS documented in this encounter Visit Diagnoses Diagnosis Left shoulder pain, unspecified chronici ty - Primary documented in this encounter Insurance Payer Benefit Plan / Subscriber ID Effective Phone Address T ype Group Dates [facility] xxxxxxxxx 2019-Prese P.O. BOX Medic aid HEALTH CHOICE - HEALTH CHOICE nt [id number] 1 MANAGED MEDICAID [place], [place] [phone] documented as of this encounter
--- OUTSIDE RECORDS SUMMARY | 2019-06-23 20:44 | XMS REPORT | Summary of Care ---
:1975 Author Organization [facility] Address [address] [place] [address] Care Team Providers Name Role Phone Pcp, Does Not Have A Primary Care Provider Reason for Referral MRI/CAT Scan (Routine) Status Reason Specialty Diagnoses / Referred By Referred To Procedures Contact Contact New Request Diagnostic Diagnoses Left shoulder pain, unspecified chronicity Arnulfo Montoya Radiology Procedures MR shoulder left with contrast MD [facility] [address] [place] [address] (Routine) Status Reason Specialty Diagnoses / Referred By Referred To Procedures Contact Contact New Request Diagnostic Diagnoses Left shoulder pain, unspecified chronicity Arnulfo Montoya Radiology Procedures Fluoroscopy arthrogram shoulder left MD [facility] [address] [place] [address] [address] Reason for Visit Reason Comments Orders Encounter Details Date Type Department Care Team Description 05/05/2019 Telephone [facility] Orthopaedic Arnulfo Montoya MD Orders Surgery- [place] [address] [place] [address] [facility] [address] [address]36 [place] [address] Allergies Active Allergy Reactions Severity [...] Specialty Care Team Description 05/20/2019 Appointment Electroneurodiagnostic ([place] Former Machine Operator), Adc Emg/Ncv Testing Name Type Priority Associated Diagnoses Order S chedule Fluoroscopy arthrogram IMAGING Routine Left shoulder pain , Expected: shoulder left unspecified chronicity 04/20, Expires: 05/07/2020 MR shoulder left with IMAGING Routine Left shoulder pain, Expected: contrast unspecified chronicity 05/07, Expires: 05/07/2020 Health Maintenance Due Date Last Done Comments [...] Plan / Subscriber ID Effective Phone Address Gideon roberson [facility] xxxxxxxxx 2017-Prese P[address]O. BOX Medic aid HEALTH CHOICE - HEALTH CHOICE nt [id number] 1 [facility] MEDICAID [place], [place]ICAID [phone] documented as of this encounter
--- OUTSIDE RECORDS SUMMARY | 2019-06-23 20:44 | XMS REPORT | Summary of Care ---
:1975 Author Organization [facility] Address [address] [place] [address] Care Team Providers Name Role Phone Pcp, Does Not Have A Primary Care Provider Reason for Visit (Routine) Status Reason Specialty Diagnoses / Procedures Referred By Marty peña Referred To Contact Closed Cardiology Diagnoses Palpitations PAC (premature atrial contraction) Greg Samuel MD Procedures ECHO ROUTINE W/DOPPLER COLOR Preferred Location: [facility] [address] [place] [address] [address] [place], [place] [address] Phone: Encounter Details Date Type Department Care Team Description 04/16/2019 Laboratory Only [facility] Greg Samuel M D [address] [place] [address] [address] [place] [address] Palpitations; Cardiology- [facility], Adc Echo Room 1 - PAC (premature atrial contraction) [address] [place] [address], [address] [place] [address] Allergies Active Allergy Reactions Severity Noted Date Comments Adhesive Tape-Silicones Rash High 02/08/2018 Blis tered when abdominal bandage left on for a week. documented as of this encounter (statuses as of 04/16/2019) Medications No known medicationsdocumented as of this encounter (statuses as of 04/16/2019) Active Problems Not on filedocumented as of this encounter (statuses as of 04/16/2019) Social History Tobacco Use Types Packs/Day Years [...] Sign Reading Time Taken Comments Blood Pressure 129/86 04/16/2019 8:10 AM DIRECTOR OF OFFICIATING Pulse 69 04/16/2019 8:10 AM DIRECTOR OF OFFICIATING Temperature - - Respiratory Rate - - Oxygen Saturation - - Inhaled Oxygen Concentration - - Weight 72.1 kg (159 lb) 04/16/2019 8:10 AM DIRECTOR OF OFFICIATING Height 162.6 cm (5' 4") 04/16/2019 8:10 AM DIRECTOR OF OFFICIATING Body Mass Index 27.29 04/16/2019 8:10 AM DIRECTOR OF OFFICIATING documented in this encounter Plan of Treatment Date Type Specialty Care Team Description 04/23/2019 Appointment Radiology Arnulfo Montoya MD [address] [place] [phone] 05/20/2019 Appointment Electroneurodiagnostic (Telecommunications Support), Adc Emg/Ncv Testing Health Maintenance Due Date [...] filedocumented in this encounter Visit Diagnoses Diagnosis Palpitations PAC (premature atrial contraction) Supraventricular premature beats documented in this encounter Insurance Payer Benefit Plan / Subscriber ID Effective Phone Address T ype [facility] xxxxxxxxx 2019-Prese P[address]O. BOX Medic aid HEALTH CHOICE - HEALTH CHOICE nt [id number] 1 MANAGED MEDICAID [place], [place] [phone] documented as of this encounter
--- OUTSIDE RECORDS SUMMARY | 2019-06-23 20:44 | XMS REPORT | Summary of Care ---
:1975 Author Organization [facility] Address [address] [place] [address] Care Team Providers Name Role Phone Pcp, Does Not Have A Primary Care Provider Reason for Referral (Routine) Status Reason Specialty Diagnoses / Referred By Referred To Procedures Contact Contact New Request Cardiology Diagnoses Palpitations PAC (premature atrial contraction) Greg Samuel MD Procedures ECHO ROUTINE W/DOPPLER COLOR Preferred Location: [address] [place], [place] [address] Reason for Visit Reason Comments New Patient Palpitations Ekg Done (Routine) Status Reason Specialty Diagnoses / Procedures Referred By C casey Referred To Contact Closed Cardiology Diagnoses Palpitations Clint Oviedo Procedures CONSULT/REFERRAL CARDIOLOGY [address] [address] Phone: Encounter Details Date Type Department Care Team Description 04/09/2019 Office Visit [facility] Greg Samuel M D Palpitations (Primary Dx); Cardiology- [address] PAC (premature atrial contra ction) 146 [facility], [address] [place], [place] [id number] Allergies Active Allergy Reactions Severity Noted [...] Sign Reading Time Taken Comments Blood Pressure 124/87 04/09/2019 10:11 AM WIND ENERGY PROJECT MANAGER Pulse 70 04/09/2019 10:11 AM WIND ENERGY PROJECT MANAGER Temperature - - Respiratory Rate 19 04/09/2019 10:11 AM WIND ENERGY PROJECT MANAGER Oxygen Saturation 99% 04/09/2019 10:11 AM WIND ENERGY PROJECT MANAGER Inhaled Oxygen Concentration - - Weight 71.5 kg (157 lb 9.6 oz) 04/09/2019 10:11 AM WIND ENERGY PROJECT MANAGER Height 162.6 cm (5' 4") 04/09/2019 10:11 AM WIND ENERGY PROJECT MANAGER Body Mass Index 27.05 04/09/2019 10:11 AM WIND ENERGY PROJECT MANAGER documented in this encounter Progress Notes Greg Samuel MD - 04/09/2019 10:00 AM CST CARDIOLOGY CLINIC NOTE 04/09/2019 Reason for Referral/Presenting Complaint: palpitations PCP: PATIENT DOES NOT HAVE A PCP History of Present Illness: Mildred Caldwell is a 43 years old female without significant medical history. Has been having intermittent palpation for a year, occurring daily, lasting seconds, more at night. Palpitations more after alcohol intake. Mild dyspnea on exertion. Cardiovascular testing: EKG: Sinus rhythm with PAC, IRBBB Review of Systems: General: (-) fever, (-) chills, (-) weight change, (-) dizziness, (-) fatigue Skin: (-) rash HEENT: (-) headache, (-) change in vision Neck: (-) difficulty swallowing Heme: negative Resp: (-) cough, (-) dyspnea on exertion Cardio: (-) chest pain, (+) palpitations, (-) syncope GI: (-) vomiting, (-) diarrhea : negative Endo: (-) diabetes, (-) thyroid disease Neuro: (-) numbness, (-) tingling, (-) weakness Back: (-) pain ROSA: (-) muscle pain, (-) claudication Psych: (-) anxiety, (-) depression Past Medical History: No past medical history on file. Current Medications: No current outpatient medications on file. No current facility-administered medications for this visit. Social History: Social History Socioeconomic History Marital status: Single [...] Not on file Tobacco Use Smoking status: Never Smoker Smokeless tobacco: Never Used Substance and Sexual Activity Alcohol use: Yes Frequency: 2-4 times a month Drug use: Never Sexual activity: Not on file Lifestyle Physical activity: Days per week: Not on file Minutes per session: Not on file Stress: Not on file Relationships Social connections: Talks on phone: Not on file Gets together: Not on file Attends confucianist service: Not on file Active member of [...] file Social History Narrative Not on file Family History Family History Problem Relation Age of Onset No Significant Medical Problems Mother No Significant Medical Problems Father Physical Examination: BP 124/87 (BP Location: Left arm, Patient Position: Sitting, BP CUFF SIZE: Adult Large) | Pulse 70| Resp 19 | Ht 5' 4" (1.626 m) | Wt 157 lb 9.6 oz (71.5 kg) | SpO2 99% | BMI 27.05 kg/m Constitutional: alert and oriented x 3 (person, place and date/time); no apparent distress ENT: normocephalic atraumatic, supple, no lymphadenopathy, no bruits, no JVD Lungs: clear to auscultation bilaterally Cardiovascular: S1, S2 normal, regular; no murmurs, rubs or gallops GI: soft; non-tender; non-distended; normoactive bowel sounds : not examined Musculoskeletal: Extremities: no clubbing, cyanosis, or edema Skin: no rashes Neuro: no focal deficits Assessment/Plan: ICD-10-CM ICD-9-CM 1. Palpitations R00.2 785.1 2. PAC (premature atrial contraction) I49.1 427.61 Palpitations likely due to PACs. Mild symptoms. Will get ECHO to rule out structural heart disease. Avoid caffeine and alcohol. Patient was counseled for lifestyle modifications including: diet, exercise and weight loss Thank you for allowing us to participate in the care of your patient. Please feel free to contact usfor any questions or if we can be of further assistance. Greg Samuel MD, FAC, ERLIN Electronic Instrument Trades Worker, Division of Cardiology [facility] documented in this encounter Plan of Treatment Date Type Specialty Care Team Description 04/10/2019 Laboratory Only Cardiology Pc, Adc Echo Room 1 - Name Type Priority Associated Diagnoses Order S chedule EKG-12 LEAD ROUTINE HEART STATION Routine Palpitations Ordered : 04/09/2019 Health Maintenance Due Date Last Done Comments [...] in this encounter Visit Diagnoses Diagnosis Palpitations - Primary PAC (premature atrial contraction) Supraventricular premature beats documented in this encounter Insurance Payer Benefit Plan / Subscriber ID Effective Phone Address T ype Group [facility] xxxxxxxxx 2019-Prese [address]O. BOX Medic aid HEALTH CHOICE - [place] [id number] 1 MANAGED MEDICAID [place], [place] MEDICAID [phone] documented as of this encounter
--- OUTSIDE RECORDS SUMMARY | 2019-06-23 20:44 | XMS REPORT | Summary of Care ---
:1975 Author Organization [facility] Address [address] [place] [address] Care Team Providers Name Role Phone Pcp, Does Not Have A Primary Care Provider Reason for Referral (Routine) Status Reason Specialty Diagnoses / Referred By Referred To Procedures Contact Contact New Request Cardiology Diagnoses Palpitations PAC (premature atrial contraction) Greg Samuel MD Procedures ECHO ROUTINE W/DOPPLER COLOR Preferred Location: [address] [place], [place] [address] Reason for Visit Reason Comments New Patient Palpitations Ekg Done (Routine) Status Reason Specialty Diagnoses / Procedures Referred By C casey Referred To Contact Closed Cardiology Diagnoses Palpitations Clint Oviedo Procedures CONSULT/REFERRAL CARDIOLOGY [address] [address] Phone: Encounter Details Date Type Department Care Team Description 04/09/2019 Office Visit [facility] Greg Samuel M D Palpitations (Primary Dx); Cardiology- [address] PAC (premature atrial contra ction) 146 [facility] [address] [place], [place] [phone] Allergies Active Allergy Reactions Severity [...] Comments Blood Pressure 124/87 04/09/2019 10:11 AM EYEDOTTER Pulse 70 04/09/2019 10:11 AM EYEDOTTER Temperature - - Respiratory Rate 19 04/09/2019 10:11 AM EYEDOTTER Oxygen Saturation 99% 04/09/2019 10:11 AM EYEDOTTER Inhaled Oxygen Concentration - - Weight 71.5 kg (157 lb 9.6 oz) 04/09/2019 10:11 AM EYEDOTTER Height 162.6 cm (5' 4") 04/09/2019 10:11 AM EYEDOTTER Body Mass Index 27.05 04/09/2019 10:11 AM EYEDOTTER documented in this encounter Progress Notes Greg [...] file Gets together: Not on file Attends mormon service: Not on file Active member of [...] further assistance. Greg Samuel MD, FAC, ERLIN Health Care Marketing Specialist, Division of Cardiology [facility] documented in this encounter Plan of Treatment [...] ID Effective Phone Address T ype Group [facility] xxxxxxxxx 2019-Prese P.O. BOX Medic aid HEALTH CHOICE - HEALTH CHOICE nt [id number] 1 MANAGED MEDICAID [place], [place] MEDICAID [id number] documented as of this encounter
[2019-06-23] MEDS ORDERED: HYDROCODONE/APAP 10/325 TAB ONE (21:27)
--- NOTE | 2019-06-23 22:25 | EDPHYS ---
Physician Documentation [facility] Name: Mildred Caldwell Age: 43 yrs Sex: Female : 1975 Arrival Date: 06/23/2019 Time: 20:43 Bed 24 Private MD: ED Physician Peng Jackson HPI: 06/22 21:20 This 43 yrs old Female presents to ER via Ambulatory with complaints of Left pm1 Foot Pain. 21:20 The patient presents with pain. The complaints affect the dorsum of left foot. Context: pm1 The problem was sustained at an unknown site, resulted from an unknown cause, the patient is able to ambulate, with mild difficulty. Onset: The symptoms/episode began/occurred many months ago. Modifying factors: The symptoms are alleviated by nothing. the symptoms are aggravated by weight bearing. Associated signs and symptoms: Pertinent negatives. 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 - Social history:: Smoking status: unknown. ROS: 21:20 Constitutional: Negative for fever, chills, and weight loss, Cardiovascular: Negative pm1 for chest pain, palpitations, and edema, Respiratory: Negative for shortness of breath, cough, wheezing, and pleuritic chest pain. 21:20 Back: Negative for injury and pain. 21:20 Skin: Negative for injury, rash, and discoloration. 21:20 Neuro: Negative for headache, weakness, numbness, tingling, and seizure. 21:20 MS/extremity: Positive for pain, of the dorsum of left foot and left first toe, Negative for decreased range of motion, deformity. 21:20 All other systems are negative. Exam: 21:20 Constitutional: This is a well developed, well nourished patient who is awake, alert, pm1 and in no acute distress. Head/Face: Normocephalic, atraumatic. Neck: Trachea midline, no thyromegaly or masses palpated, and no cervical lymphadenopathy. Supple, full range of motion without nuchal rigidity, or vertebral point tenderness. No Meningismus. Chest/axilla: Normal chest wall appearance and motion. Nontender with no deformity. No lesions are appreciated. 21:20 Cardiovascular: Exam negative for acute changes, Rate: normal, Rhythm: regular. 21:20 Respiratory: Exam negative for acute changes, respiratory distress, shortness of breath. 21:20 Musculoskeletal/extremity: Extremities: grossly normal except: Hallux Valgus deformity to left great toe, ROM: intact in all extremities, Circulation is intact in all extremities. Vital Signs: 20:59 BP 132 / 82; Pulse 72; Resp 18; Temp 98.3; Pulse Ox 98% on R/A; Weight 72.57 kg; Height ea 5 ft. 4 in. (162.56 cm); Pain 9/10; 22:18 BP 133 / 92; Pulse 62; Resp 18; Pulse Ox 98% on R/A; ea 20:59 Body Mass Index 27.46 (72.57 kg, 162.56 cm) ea MDM: 21:11 Patient medically screened. pm1 22:22 Data reviewed: vital signs. Data interpreted: Pulse oximetry: on room air is 98 %. pm1 Interpretation: normal. Counseling: I had a detailed discussion with the patient and/or guardian regarding: the historical points, exam findings, and any diagnostic results supporting the discharge/admit diagnosis, radiology results, the need for outpatient follow up, to return to the emergency department if symptoms worsen or persist or if there are any questions or concerns that arise at home. 06/22 21:06 Order name: XRAY Foot LEFT 3 View ea Administered Medications: 21:23 Drug: Ector 10 mg-325 mg 1 tabs {Note: RASS 0.} Route: PO; ea 22:00 Follow up: Response: No adverse reaction; Pain is decreased; RASS: Alert and Calm (0) ea Disposition: 06/23/19 22:24 Discharged to Home. Impression: Pain in left foot. - Condition is Stable. - Discharge Instructions: Bunion, Foot Pain. - Prescriptions for Tylenol- Codeine #3 300-30 mg Oral Tablet - take 2 tablets by ORAL route every 6 hours As needed; 20 tablet. - Medication Reconciliation Form, Thank You Letter, Antibiotic Education, Prescription Opioid Use form. - Follow up: Emergency Department; When: As needed; Reason: Worsening of condition. Follow up: Private Physician; When: 2 - 3 days; Reason: Recheck today's complaints, Continuance of care, Re-evaluation by your physician. - Problem is new. - Symptoms have improved. Signatures: Dispatcher [employer] EDGalileo Bello NP TYPE MAPPER pm1 Susie Velazquez RN RN ea Corrections: (The following items were deleted from the chart) 22:41 22:24 06/23/2019 22:24 Discharged to Home. Impression: Pain in left foot. Condition is ea Stable. Forms are Medication Reconciliation Form, Thank You Letter, Antibiotic Education, Prescription Opioid Use. Follow up: Emergency Department; When: As needed; Reason: Worsening of condition. Follow up: Private Physician; When: 2 - 3 days; Reason: Recheck today's complaints, Continuance of care, Re-evaluation by your physician. Problem is new. Symptoms have improved. pm1
--- NOTE | 2019-06-23 22:25 | ER ---
Nurse's Notes [facility] Name: Mildred Caldwell Age: 43 yrs Sex: Female : 1975 Arrival Date: 06/23/2019 Time: 20:43 Bed 24 Private MD: Diagnosis: Pain in left foot Presentation: 06/22 20:59 Chief complaint: Patient states: Reports pain to her left foot for the past few months, ea states, "I don't remember hurting it but it has been hurting on and off" Pt reports she is unable to tolerate weight on the left foot at times. Coronavirus screen: Coronavirus screen: Proceed with normal triage. Ebola Screen: No symptoms or risks identified at this time. Initial Sepsis Screen: Does the patient meet any 2 criteria? No. Patient's initial sepsis screen is negative. Does the patient have a suspected source of infection? No. Patient's initial sepsis screen is negative. Risk Assessment: Do you want to hurt yourself or someone else? Patient reports no desire to harm self or others. Onset of symptoms was June 23, 2019 at 21:02. 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 - Social history:: Smoking status: unknown. Screenin:02 Abuse screen: Denies threats or abuse. Nutritional screening: No deficits noted. ea Tuberculosis screening: No symptoms or risk factors identified. Fall Risk None identified. Assessment: 21:05 General: Appears in no apparent distress. Behavior is calm, cooperative, appropriate ea for age. Pain: Complains of pain in left foot. Neuro: Level of Consciousness is awake, alert, obeys commands, Oriented to person, place, time, situation. Cardiovascular: Patient's skin is warm and dry. Respiratory: Airway is patent Respiratory effort is even, unlabored, Respiratory pattern is regular, symmetrical. Derm: Skin is pink, warm \\T\\ dry. Musculoskeletal: Swelling present in dorsum of left foot. 22:14 Reassessment: Patient and/or family updated on plan of care and expected duration. Pain ea level reassessed. Patient is alert, oriented x 3, equal unlabored respirations, skin warm/dry/pink. 22:40 Reassessment: Patient and/or family updated on plan of care and expected duration. Pain ea level reassessed. Patient is alert, oriented x 3, equal unlabored respirations, skin warm/dry/pink. Discharge instruction given to patient, verbalized the understanding of instruction, pt left ED via wheelchair assisted to private vehicle accompanied by family. Vital Signs: 20:59 BP 132 / 82; Pulse 72; Resp 18; Temp 98.3; Pulse Ox 98% on R/A; Weight 72.57 kg; Height ea 5 ft. 4 in. (162.56 cm); Pain 9/10; 22:18 BP 133 / 92; Pulse 62; Resp 18; Pulse Ox 98% on R/A; ea 20:59 Body Mass Index 27.46 (72.57 kg, 162.56 cm) ea ED Course: 20:43 Patient arrived in ED. cl3 20:57 Galileo Leyva NP is PHCP. pm1 20:57 Peng Jackson MD is Attending Physician. pm1 20:59 Susie Velazquez RN is Primary Nurse. ea 21:02 Triage completed. ea 21:02 Arm band placed on right wrist. Patient placed in an exam room, on a stretcher, on ea pulse oximetry. 21:03 Patient has correct armband on for positive identification. Bed in low position. Call ea light in reach. Side rails up X 1. 21:52 XRAY Foot LEFT 3 View In Process Unspecified. EDMS 22:39 No provider procedures requiring assistance completed. Patient did not have IV access ea during this emergency room visit. Administered Medications: 21:23 Drug: Amboy 10 mg-325 mg 1 tabs {Note: RASS 0.} Route: PO; ea 22:00 Follow up: Response: No adverse reaction; Pain is decreased; RASS: Alert and Calm (0) ea Outcome: 22:24 Discharge ordered by . pm1 22:39 Discharged to home via wheelchair, with family. ea 22:39 Condition: stable 22:39 Discharge instructions given to patient, Instructed on discharge instructions, follow up and referral plans. medication usage, Demonstrated understanding of instructions, follow-up care, medications, Prescriptions given X 1. 22:41 Patient left the ED. ea Signatures: Dispatcher [employer] EDGalileo Bello, SONIA QUALITY IMPROVEMENT CONSULTANT pm1 Susie Velazquez, RN RN Stephon Donovan cl3
[2019-06-23 22:46] VITALS: TEMP 98.3; O2SAT 98
[2019-06-23 22:47] VITALS: BP 133/92
--- NOTE | 2019-06-24 10:53 | RAD REPORT ---
EXAM DESCRIPTION: RAD - Foot Left 3 View - 06/23/2019 9:52 pm CLINICAL HISTORY: PAIN COMPARISON: Foot Left 3 View dated 09/15/2014 FINDINGS: Mild soft tissue swelling is seen along dorsum foot. No acute fracture seen. If pain persi sts or progresses, MR imaging followup may be useful.
== END 2019-06-23 22:41 | disposition home or self-care (01) ==
LOC: ER 20:40
DX: M79.672 Pain in left foot (principal)
CPT/HCPCS: 99284

== ENCOUNTER 2019-12-09 18:21 | Emergency (ER) | payer OTHER ==
--- OUTSIDE RECORDS SUMMARY | 2019-12-09 18:24 | XMS REPORT | Clinical Summary ---
:[address] [facility] Address [address] [place] [id number] Care Team Providers Name Role Phone Unavailable Primary Care Provider Unavailable Allergies No Known Allergies Medications Medication Sig Dispensed Refills Start Date End Date Status acetaminophen-codeine Take 2 tablets by 50 tablet 0 11/27/2016 Active (TYLENOL/CODEINE #3) mouth every 4 300-30 mg per tablet hours as needed for Pain. silver sulfADIAZINE Apply to affected 50 g 0 11/27/2016 Active (SILVADENE) 1 % area daily Apply topical cream to purple discolored areas of breasts. ondansetron (ZOFRAN) Take 1 tablet by 21 tablet 0 11/30/2016 Active 4 mg tablet mouth every 8 hours as needed for up to 21 doses for Nausea. BOOST oral liquid Take 1 Package by 6399 mL 2 12/04/2016 Active mouth 2 times daily. raNITIdine HCl 150 mg Take 1 tablet by 30 tablet 0 12/07/2016 Active tablet mouth 2 times daily. promethazine Take 1 tablet by 30 tablet 2 01/02/2017 Active (PHENERGAN) 25 mg mouth every 6 tabletIndications: hours as needed BRCA gene positive for Nausea or Vomiting. ibuprofen (MOTRIN) Take 1 tablet by 30 tablet 1 03/27/2017 Active 600 mg mouth every 6 tabletIndications: hours as needed BRCA gene mutation for Pain. positive gabapentin Take 1 capsule by 30 capsule 0 03/27/2017 Active (NEURONTIN) 100 mg mouth 3 times capsuleIndications: daily. BRCA gene mutation positive acetaminophen Take 2 tablets by 30 tablet 0 03/27/2017 Active (TYLENOL) 325 mg mouth every 6 tabletIndications: hours as needed BRCA gene mutation for Pain. positive acetaminophen-codeine Take 1 tablet by 30 tablet 0 04/17/2017 Active (TYLENOL/CODEINE #3) mouth every 4 300-30 mg per hours as needed tabletIndications: for Pain. BRCA gene positive traMADol (ULTRAM) 50 Take 1 tablet by 30 tablet 0 04/17/2017 Active mg tabletIndications: mouth every 6 BRCA gene mutation hours as needed positive for Pain. venlafaxine (EFFEXOR Take 1 capsule by 30 capsule 5 08/24/2017 Active XR) 37.5 mg extended mouth daily. release capsuleIndications: Mood swings polyethylene glycol Add lukewarm 4000 mL 0 09/19/2017 Active (GOLYTELY) drinking water to [id number] -5.86 the fill michael (4 gram oral liters) and shake. solutionIndications: Drink as directed Abdominal bloating by your doctor.. Active Problems Problem Noted Date History of colonoscopy 09/201710/01/2017 Overview: Recommend repeating colonoscopy in 10yrs and forgo annual FIT in the interim. Mood swings 08/24/2017 BRCA gene mutation positive 03/12/2017 Overview: Added automatically from request for kirsty benedict [id number] Endometrial polyp 02/23/2017 S/P TRAM (transverse rectus abdominis muscle) flap aly ast reconstruction 02/08/2017 Acquired absence of breast 11/20/2016 BRCA gene positive 11/20/2016 Acquired absence of breast and absent nipple 7 BRCA2 gene mutation positive 06/28/2016 Overview: 08/01/2016 see in obstetrics gynecology [facility] onc clinic. Interested in RRBSO. Plan to do after mastectomy/recontruction. CA-125 ordered. TVUS scheduled 08/18/16. Plan for [id number] surveillance until risk reducing BSO. 03/27/17: exam under anesthesia, diagnosti c and operative laparoscopy, total laparoscopic hysterectomy, bilateral salpingo-oophorectomy, pelvic washings. (Cruz) 04/04/17: tumor board: pathology notable for negative washings, benign adnexa, and uterus. Plan for annual WWE. Immunizations Name Administration Dates Next Due Influenza Vaccine 11/25/2016 Family History Medical History Relation Name Comments Cancer Father Arthritis Mother Diabetes Mother Relation Name Status Comments Father Mother Alive Social History Tobacco Use Types Packs/Day Years Used Date Never Smoker Smokeless Tobacco: Never Used Tobacco Cessation: Counseling Given: Yes Sex Assigned at Date Recorded Not on file Job Start Date Occupation Industry Not on file Not on file Not on file Travel History Travel Start Travel End No recent travel history available. Last Filed Vital Signs Not on file Plan of Treatment Health Maintenance Due Date Last Done Comments Cervical Cancer Scrn (3 Yrs) 12/24/1995 Breast Cancer Scrn (Yearly) 08/24/2018 08/24/2017, 04/17/19 18, 04/16/2017, Additional history exists IMM Influenza Seasonal Oct to 11/20/2019 11/25/2016April (>/= 19 yrs) Implants Implanted Type Area Selvage Machine Operator Device Shelf Model / Identifier Expiration Serial / Date Lot Reeceryl Woven Mesh Undyed Abdomen 09/18 [id number] / Implanted: Qty: 1 on 11/20/2016 by Deyvi Hidalgo MD at [facility] / [id number] [employer] Work Supervisor Left: 02/21/2021 [id number] / Implanted: Qty: 1 on 11/20/2016 by Deyvi Hidalgo MD at [facility] Breast(s) / [id number] [employer] Work Supervisor Left: [employer] 06/19/2021 GEM / Implanted: Qty: 1 on 11/20/2016 by Deyvi Hidalgo MD at [facility] Breast(s) [place] / [id number] [employer] Work Supervisor Left: [employer] 04/14/2021 [id number] / Implanted: Qty: 1 on 11/21/2016 by Deyvi Hidalgo MD at [facility] Breast(s) [place] / [id number] Results Not on fileafter 12/08/2018 Insurance Payer Benefit Plan / Subscriber ID Effective Phone Address T ype Group [facility] xxxxxxxxx 2017-Laisha [phone] [address] [facility] [employer] HEALTH CHOICE nt 00 [phone] [place] [address] Advance Directives Code Status Date Activated Date Inactivated Comments Full Code 11/21/2016 11:05 AM 11/27/2016 1:56 PM
--- OUTSIDE RECORDS SUMMARY | 2019-12-09 18:24 | XMS REPORT | Clinical Summary ---
:1975 Author Organization [facility] Address [address] [place] [address] Care Team Providers Name Role Phone Beverly Rosa MD, Mert Primary Care Provider Allergies Active Allergy Reactions Severity Noted Date Comments Adhesive Tape-Silicones Dermatitis High 02/08/2018 Blis tered when abdominal bandage left on for a week. Medications Medication Sig Dispensed Refills Start Date End Date Status ibuprofen Take 600 mg by 0 Activ e (ADVIL,MOTRIN) 600 MG mouth every 6 tablet (six) hours as needed for mild pain. Active Problems Problem Noted Date Cervical spondylosis with radiculopathy 02/08/2018 Encounters Date Type Specialty Care Team Description 09/17/2019 Telephone Orthopedic Rayo Blancas, Surgery ID 09/17/2019 Documentation Orthopedic Marcus, Back Pain Surgery Konrad Sanders 09/09/2019 Hospital Encounter Radiology Marcus, Cervical spondylosis with radiculopathy; Konrad S. Radicular syndr ome of left leg; Fusion of lumba r spine; Spondylolisthes is of lumbar region; Fusion of spine , unspecified spinal region; Cervical radicu lopathy; Cervical spondy lolysis; Other spondylos is with radiculopathy, cervical region; Neck pain; Back pain, unsp ecified back location, unspecified back pain laterality, unspecified chronicity 09/09/2019 Hospital Encounter Radiology Marcus, Cervical spondylosis with radiculopathy; Konrad S. Radicular syndr ome of left leg; Fusion of lumba r spine; Spondylolisthes is of lumbar region; Fusion of spine , unspecified spinal region; Cervical radicu lopathy; Cervical spondy lolysis; Other spondylos is with radiculopathy, cervical region; Neck pain; Back pain, unsp ecified back location, unspecified back pain laterality, unspecified chronicity 09/09/2019 Hospital Encounter Radiology Marcus, Cervical spondylosis with radiculopathy; Konrad Sanders Radicular syndr ome of left leg; Fusion of lumba r spine; Spondylolisthes is of lumbar region; Fusion of spine , unspecified spinal region; Cervical radicu lopathy; Cervical spondy lolysis; Other spondylos is with radiculopathy, cervical region; Neck pain; Back pain, unsp ecified back location, unspecified back pain laterality, unspecified chronicity 09/09/2019 Travel 09/05/2019 Travel 09/01/2019 Office Visit Orthopedic Marcus, Fusion of lumba r spine (Primary Dx); Surgery Konrad Sanders Cervical spondy losis with radiculopathy; Radicular syndr ome of left leg; Spondylolisthes is of lumbar region; Fusion of spine , unspecified spinal region; Cervical radicu lopathy; Cervical spondy lolysis; Other spondylos is with radiculopathy, cervical region; Neck pain; Back pain, unsp ecified back location, unspecified back pain laterality, unspecified chronicity 09/01/2019 Travel 08/29/2019 Travel 01/24/2019 Orders Only Orthopedic Blancas, Rayo, Spondylolisthe sis of lumbar region (Primary Dx); Surgery MA Fusion of lumba r spine; Radicular syndr ome of left leg 01/23/2019 Orders Only Orthopedic Blancas, Rayo, Spondylolisthe sis of lumbar region (Primary Dx); Surgery MA Back pain, unsp ecified back location, unspecified back pain laterality, unspecified chronicity after 12/08/2018 Immunizations Name Administration Dates Next Due FLUCELVAX QUAD PF 02/09/2018 Surgical History Surgery Date Site/Laterality Comments BACK SURGERY SHOULDER SURGERY Left x 2 2012 MASTECTOMY Bilateral 11/20/2016 HYSTERECTOMY 03/2016 VAGINAL PROLAPSE REPAIR 06/2016 BREAST SURGERY 02/20/2016 - Bilateral prophylactic. BR CA2 02/18/2017 DISCECTOMY, CERVICAL, WITH 02/08/2018 Spine Cervical/N/A Pr ocedure: C4 - C7 FUSION, ANTERIOR APPROACH ANTERI OR CERVICAL DISCECTOMY AND F USION; Surgeon: Konrad Velazquez; Loc ation: [facility]; Se rvice: Orthopedics; Laterality: N/A; Medical devices from this surgery are in the Implants section . Medical History Medical History Date Comments BRCA2 positive double mastectomy Wears glasses Anesthesia PONV, NFHAP Family History Medical History Relation Name Comments [...] six or more drinks on one occasion? No t asked Sex Assigned at Date Recorded Not on file Last Filed Vital Signs Not on file Plan of Treatment Health Maintenance Due Date Last Done Comments CERVICAL CANCER SCREENING 12/24/1995 INFLUENZA VACCINE 09/20/2019 02/09/2018 Implants Implanted Type Area Vacuum Frame Operator Device Shelf Model / Identifier Expiration Serial / Lot Date Tissue [id number] Lasr [id number] Srvc Fee, Ts- Cornerstone L-Asr (Tissue - Cervical Interbody) - [id number] - [id number] IMPLANT N/A: [employer] 09/05/2020 [id number] / Implanted: Qty: 1 on 02/08/2018 by Konrad Velazquez at [facility] DEVICES N/A [employer] [id number] / [id number] Tissue [id number] Lasr [id number] Srvc Fee, Ts- [employer]stone L-Asr (Tissue - Cervical Interbody) - [id number] - [id number] [id number] IMPLANT N/A: [employer] 10/23/2020 [id number] / Implanted: Qty: 1 on 02/08/2018 by Konrad Velazquez at [facility] DEVICES N/A [employer] [id number] / [id number] Tissue [id number] Lasr [id number] Srvc Fee, Ts- [employer]stone L-Asr (Tissue - Cervical Interbody) - [id number] - [id number] [id number] IMPLANT N/A: [employer] 10/14/2019 [id number] / Implanted: Qty: 1 on 02/08/2018 by Konrad Velazquez at [facility] DEVICES N/A [employer] [id number] / [id number] Plate [id number] Zevo 55mm 3 Lvl - [id number] [id number] IMPLANT N/A: [employer] [id number] / Implanted: Qty: 1 on 02/08/2018 by Konrad Velazquez at [facility] DEVICES N/A [employer] / Screw [id number] Zevo Kory Sd 3.5mm X 15mm - [id number] [id number] IMPLANT N/A: [employer] [id number] / Implanted: Qty: 6 on 02/08/2018 by Konrad Velazquez at [facility] DEVICES N/A [employer] / Pin Distrctn [place] 12mm Strl - [id number] Surgical N/A: [facility] ULAP SPINE 09/18/2022 [id number] / Implanted: Qty: 3 on 02/08/2018 by Konrad Velazquez at [facility] Implants; N/A / Expanders; [id number] Extenders; Surgical Wires Procedures Procedure Name Priority Date/Time Associated Diagnosis Comme nts MRI THORACIC SPINE Routine 09/09/2019 9:49 Cervical spondylos is Results for this WO CONTRAST AM CDT with radiculopat hy procedure are in Radicular syndrome of the re sults left leg section. Fusion of lumbar spine Spondylolisthesis of lumbar region Fusion of spine, unspecified spinal region Cervical radicul opathy Cervical spondyl olysis Other spondylosis with radiculopathy, cervical region Neck pain Back pain, unspecified back location, unspecified back pain laterality, unspecified chronicity MRI CERVICAL SPINE Routine 09/09/2019 9:17 Cervical spondylos is Results for this WO CONTRAST AM CDT with radiculopat hy procedure are in Radicular syndrome of the re sults left leg section. Fusion of lumbar spine Spondylolisthesis of lumbar region Fusion of spine, unspecified spinal region Cervical radicul opathy Cervical spondyl olysis Other spondylosis with radiculopathy, cervical region Neck pain Back pain, unspecified back location, unspecified back pain laterality, unspecified chronicity MRI LUMBAR SPINE Routine 09/09/2019 9:02 Cervical spondylosis Results for this WO CONTRAST AM CDT with radiculopat hy procedure are in Radicular syndrome of the re sults left leg section. Fusion of lumbar spine Spondylolisthesis of lumbar region Fusion of spine, unspecified spinal region Cervical radicul opathy Cervical spondyl olysis Other spondylosis with radiculopathy, cervical region Neck pain Back pain, unspecified back location, unspecified back pain laterality, unspecified chronicity XR SPINE SCOLIOSIS Routine 09/01/2019 1:19 Cervical spondylos is Results for this 2-3 VIEWS PM CDT with radiculopathy procedure are in the results section. after 12/08/2018 Results MRI Thoracic Spine Wo Contrast (09/09/2019 9:49 AM CDT) Specimen Narrative Performed At MRI of the thoracic spine without contra st [facility] History: Cervical spondylosis with radiculopathy. Radi cular syndrome of the left leg. Fusion of lumbar spine Comparison: Same day MRI of the cervical and lumbar spine Technique: Multiplanar multiplanar multisequence MR I of the thoracic spine. Contrast: None Complications: None FINDINGS: Alignment: Normal kyphosis. No scoliosis Soft tissues: No signal abnormalities Partially visualized anterior fusion of the cervical spine Spinal cord: Normal in signal and morpho logy. Vertebrae: No fractures, infection or neoplasm. Degenerative changes: Mild disc degeneration with loss of T2 signal from T2 through T10. Grossly patent canal and foramina IMPRESSION: 1. Minimal disc degeneration of the upper and mid th oracic spine without significant canal stenosis or fo raminal narrowing Procedure Note Interface, Radiology Results [facility] - 09/09/2019 10:08 AM CDT MRI of the thoracic spine without contrast History: Cervical spondylosis with radic ulopathy. Radicular syndrome of the left leg. Fusion of lumbar spine Comparison: Same day MRI of the cervical and lumbar spine Technique: Multiplanar multiplanar multisequence MR I of the thoracic spine. Contrast: None Complications: None FINDINGS: Alignment: Normal kyphosis. No scoliosis Soft tissues: No signal abnormalities Partially visualized anterior fusion of the cervical spine Spinal cord: Normal in signal and morpho logy. Vertebrae: No fractures, infection or neoplasm. Degenerative changes: Mild disc degeneration with loss of T2 s ignal from T2 through T10. Grossly patent canal and foramina IMPRESSION: 1. Minimal disc degeneration of the upp er and mid thoracic spine without significant canal stenosis or foraminal narrowing Performing Organization Address City/State/ZIP Code Phon e Number [facility] [address] [place] [address] MRI Cervical Spine Wo Contrast (09/09/2019 9:17 AM CDT) Specimen Narrative Performed At EXAMINATION: MRI CERVICAL SPINE WO CON TRAST [facility] COMPARISON: December 24, 2017. CLINICAL HISTORY: M47.22 Other spondylosis with radi culopathy cervical region, M54.10 Radiculopathy site unspeci fied, Neck pain initial exam COMMENTS: Sagittal and axial MR images of the cervic al spine were obtained. FINDINGS: C2-C3 shows progressive minimal right face t degenerative change. C3-4 shows mild disc bulge mild facet and uncovertebra l joint degenerative change. These findings show slight progression. There are now anterior metallic plate an d screws from C4 to C7. C7-T1 shows mild facet disease. There is no significant subluxation. The signal within the spinal cord is intact. IMPRESSION: Postoperative and degenera tive change. [id number] Procedure Note Interface, Radiology Results Incoming - 09/09/2019 9:38 AM CDT EXAMINATION: MRI CERVICAL SPINE WO CONTRAST COMPARISON: December 24, 2017. CLINICAL HISTORY: M47.22 Other spondylo sis with radiculopathy cervical region, M54.10 Radiculopathy site unspecified, Neck pain initial exam COMMENTS: Sagittal and axial MR images of the cervical spine were obtained. FINDINGS: C2-C3 shows progressive minim al right facet degenerative change. C3-4 shows mild disc bulge mild facet an d uncovertebral joint degenerative change. These findings show slight progression. There are now anterior metallic plate an d screws from C4 to C7. C7-T1 shows mild facet disease. There is no significant subluxation. The signal within the spinal cord is intact. IMPRESSION: Postoperative and degenerat tyler change. [id number] Performing Organization Address [facility] Code Phon e Number [facility] [address] [place] [address] MRI Lumbar Spine Wo Contrast (09/09/2019 9:02 AM CDT) Specimen Narrative Performed At This result has an attachment that is no t available. EXAMINATION: MRI LUMBAR SPINE WO CONTRAST [facility] COMPARISON: CT scan October 10, 2018. CLINICAL HISTORY: M47.22 Other spondyl osis with radiculopathy cervical region, M54.10 Radiculopathy site unspecified, L S-spine stenosis COMMENTS: Sagittal and axial MR images of the lumbar spine are provided. FINDINGS: The numbering assumes fusion at L5-S1 disc. The minimal anterior subluxation of L5 on S1 is again identified. Pedicle screws are noted from L4 to S1. Bilateral laminectomy change suspected at L5-S1. L4-5 shows mild facet disease. There is mild disc bulg e. L3-4 shows stable mild left paracentral disc protrusion. There is mild facet disease ligament flavum thickening. L2-3 again shows a broad-based central d isc protrusion. There is mild facet disease ligament flavum thickening. Mild endplate degenerative change. Tiny superior endplate defect with edema is noted towar ds the right side at upper L3 vertebral body and in the lower L2 vertebral body. The upper level show mild facet disease. The conus end s at the lower L1 level. IMPRESSION: Tiny new endplate defects with edema noted at the lower L2 vertebral body and upper L3 vertebral body towards the right. Otherwise grossly stable appearance of the lumbar spine compared to the previous study. [id number] Procedure Note Hm Interface, Radiology Results - 09/09/2019 9:17 AM CDT EXAMINATION: MRI LUMBAR SPINE WO CONTRAST COMPARISON: CT scan October 10, 2018. CLINICAL HISTORY: M47.22 Other spondylo sis with radiculopathy cervical region, M54.10 Radiculopathy site unspecified, L S-spine stenosis COMMENTS: Sagittal and axial MR images of the lumbar spine are provided. FINDINGS: The numbering assumes fusion at L5-S1 disc. The minimal anterior subluxation of L5 on S1 is again identified. Pedicle screws are noted from L4 to S1. Bilateral laminectomy change suspected at L5-S1. L4-5 shows mild facet disease. There is mild disc bulge. L3-4 shows stable mild left paracentral disc protrusion. There is mild facet disease ligament flavum thickening. L2-3 again shows a broad-based central d isc protrusion. There is mild facet disease ligament flavum thickening. Mild endplate degenerative change. Tiny superior endplate defect with edema is noted towards the right side at upper L3 vertebral body an d in the lower L2 vertebral body. The upper level show mild facet disease. The conus ends at the lower L1 level. IMPRESSION: Tiny new endplate defects w ith edema noted at the lower L2 vertebral body and upper L3 vertebral body towards the right. Otherwise grossly stable appearance of the lumbar spine compared to the previous study. [id number] Performing Organization Address City/[facility]/ZIP Code Phon e Number ARVIND WANG [address] [place] [address] XR Spine Scoliosos 2-3 Views (09/01/2019 1:19 PM CDT) Specimen Narrative Performed At This result has an attachment that is no t available. Standing scoliosisPA and lateral viewsof the entirespine are reviewed ARVIND WANG today. She has anterior cervical instrumentation in place C4 through C7 with anterior cervical plate construct and interbody c orticocancellous spacers. All instrumentation is in good position wit h good taoism of her interbody heights. Overall improved cervical spi ne lordosis compared with preoperatively, now with approximately 8 degrees of lordosis through the instrumented segments. Well-preserved disc space s above and below fusion.Looking at her lumbar spine, she has instru mentation in place from L4 to the sacrum. All instrumentation appears t o be in good position. She has residual grade 1 spondylolisthesis at L5-S1. She has 78 degrees of lumbar lordosis. She is an mildly posi tive sagittal balance with the C7 plumbline in relation to the sacrum. She has a very high sacral slope. Images unchanged from prior. Performing Organization Address City/[facility] Code Phon e Number ARVIND WANG [address] [place] [address] after 12/08/2018 Insurance Payer Benefit Plan / Subscriber ID Effective Dates Phone Addre ss Type Group Industry Weapon [facility] [id number] 2017-Present O CHOICE [facility] Advance Directives For more information, please contact: [phone] Type Date Recorded Patient Collection Specialist Explanati on Advance Directives, Living Will and Medical Power of Behavioral Health Specialist
--- OUTSIDE RECORDS SUMMARY | 2019-12-09 18:25 | XMS REPORT | Continuity of Care Document ---
:1975 Author Organization [facility] t Address [address] [place] [address] Care Team Providers Name Role Phone Phu Paul MD Primary Care Physician Phu SUAREZ Attending Clinician Yonny GENAO Attending Clinician Unavailable Tommy Velazquez Attending Clinician Shawna Montenegro PA-C Attending Clinician Navjot NUÑEZ Attending Clinician Unavailable Navjot NUÑEZ Admitting Clinician Unavailable Payers Payer Name Policy Type Policy Effective Date Expiration Date Sour ce Number [facility] [id number] 2017 [facility] 00:00:00 [facility] [id number] O Problems Condition Condition Condition Status Onset Resolution Last Treating Co mments Source Name Details Category Date Date Treatment Clinician Date Cervical Cervical Disease Active 2017-02 [place] spondylosi spondylosi 2-21 Me thodi s with s with 00:00: st radiculopa radiculopa 00 thy thy History of History of Disease Active Overview : Faheem colonoscop colonoscop - Recommend Health y 09/2017 y 09/2017 00:00: repeating 00 colonosco py in 10yrs and forgo annual FIT in the interim. Mood Mood Disease Active Faheem swings swings 7- Health 00:00: 00 BRCA gene BRCA gene Disease Active Overview: Faheem mutation mutation 1-22 Added Health positive positive 00:00: automatic 00 ally from request for surgery [id number] Endometria Endometria Disease Active H arris l polyp l polyp 1-05 Health 00:00: 00 S/P TRAM S/P TRAM Disease Active 2016-02 Talita s (transvers (transvers 2-21 He alth e rectus e rectus 00:00: abdominis abdominis 00 muscle) muscle) flap flap breast breast reconstruc reconstruc tion tion Acquired Acquired Disease Active 2016-02 Loreleii s absence of absence of 0-02 He alth breast breast 00:00: 00 BRCA gene BRCA gene Disease Active 2016-02 Beka ris positive positive 0-02 Health 00:00: 00 Acquired Acquired Disease Active Loreleii s absence of absence of 8-14 He alth breast and breast and 00:00: absent absent 00 nipple nipple BRCA2 gene BRCA2 gene Disease Active Overview : Faheem mutation mutation 5-10 08/01/2016 [facility] positive positive 00:00: see in 00 [facility] helper onc clinic. Intereste d in RRBSO. Plan to do after mastectom y/recontr uction. CA-125 ordered. TVUS scheduled 08/18/16. Plan for v2xumfx surveilla nce until risk reducing BSO. 03/27/17: exam under anesthesi a, diagnosti c and operative laparosco py, total laparosco pic hysterect jac, bilateral salpingo- oophorect jac, pelvic washings. (Cruz)03/22 06/06: tumor board: pathology notable for negative washings, benign adnexa, and uterus. Plan for annual WWE. 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 Family History Family Member Diagnosis Comments Start Date Stop Date Source Natural brother Diabetes [facility] Natural father Cancer [place] [facility] Natural father Cancer [facility] Natural mother Diabetes [facility] thodist Natural mother Arthritis [facility] Natural mother Diabetes [facility] Social History Social Habit Start Date Stop Date Quantity Comments Source History [facility] Meth odist Alcohol Std Drinks History [facility] od[facility] Alcohol Binge Sex Assigned [facility] Tobacco use and 2018-02-13 2018-02-13 Never used [place] [facility] ethodist exposure 00:00:00 00:00:00 Alcohol intake 2018-02-13 2018-02-13 Current [place] thodist 00:00:00 00:00:00 non-drinker of alcohol (finding) History SDND 2018-01-28 2018-01-28 1 [place] [facility] od[facility] Alcohol Frequency 00:00:00 00:00:00 Alcohol Comment 2015-07-22 2015-07-22 1 [facility] Smoking Status Start Date Stop Date Source Never smoker [facility] Medications Ordered Filled Start Stop Current Ordering Indication Dosage Frequency Signature Comments Components Source Medication Medication Date Date Medication? Clinician (SIG) Name Name ibuprofen Yes 600mg Q6H Take [address] (ADVIL,MOTR 8-22 mg by Methodi IN) 600 MG 10:03: mouth st tablet 26 every 6 (six) hours as needed for mild pain. lipase-prot Yes 05049T{ Q.[id number] Take [facility] ease-amylas 6-26 lipase} [id number] 36,000 [facility] - e (CREON) 16:25: 3D units of Medi [place] 36,000-114, [address] 000- mouth 3 180,000 (three) unit CpDR times capsule daily. metoclopram Yes 10mg Q.5D Take [address] pedro HCl 6-26 by mouth 2 [facility] - (REGLAN) 10 16:25: (two) Medic al MG tablet 39 times Center daily. polyethylen Yes Abdominal Add H arris e glycol 8 bloating mirian Delatorre lt (GOLYTELY) 00:00: drinking 236-22.74-6 00 water to .74 -5.86 the fill gram oral michael (4 solution liters) and shake. Drink as directed by your doctor.. venlafaxine Yes Mood swings 37.5mg QD Take 1 [place] (EFFEXOR 7-06 capsule by [facility] XR) 37.5 mg 00:00: mouth extended 00 daily. release capsule acetaminoph Yes BRCA gene 1{tbl} Take 1 [place] en-codeine 2-27 positive tablet by [facility] (TYLENOL/CO 00:00: mouth DEINE #3) 00 every 4 300-30 mg hours as per tablet needed for Pain. traMADol Yes BRCA gene 50mg Take 1 Sagastume rris (ULTRAM) 50 2-27 mutation tablet by [facility] mg tablet 00:00: positive mouth 00 every 6 hours as needed for Pain. ibuprofen Yes BRCA gene 600mg Take 1 [place] (MOTRIN) 2-06 mutation tablet by alth 600 mg 00:00: positive mouth tablet 00 every 6 hours as needed for Pain. gabapentin Yes BRCA gene 100mg Take 1 [place] (NEURONTIN) 2-06 mutation capsule by [facility] 100 mg 00:00: positive mouth 3 capsule 00 times daily. acetaminoph Yes BRCA gene 650mg Take 2 Mayen en 2-06 mutation tablets by [facility] (TYLENOL) 00:00: positive mouth 325 mg 00 every 6 tablet hours as needed for Pain. promethazin 2016-02 Yes BRCA gene 25mg Take 1 Mayen e 1-14 positive tablet by [facility] (PHENERGAN) 00:00: mouth 25 mg 00 every 6 tablet hours as needed for Nausea or Vomiting. raNITIdine 2016-02 Yes 150mg Q.5D Take 1 Lorelei is HCl 150 mg 0-19 tablet by [facility] tablet 00:00: mouth 2 00 times daily. BOOST oral 2016-02 Yes 1{packa Q.5D Take 1 Sagast[place] rris liquid 0-16 ge} Package by [facility] 00:00: mouth 2 00 times daily. ondansetron 2016-02 Yes 4mg Take 1 L[place]lei is (ZOFRAN) 4 0-12 tablet by [facility] mg tablet 00:00: mouth 00 every 8 hours as needed for up to 21 doses for Nausea. acetaminoph 2016-02 Yes 2{tbl} Take 2 Sagastume rris en-codeine 0-09 tablets by [facility] (TYLENOL/CO 00:00: mouth DEINE #3) 00 every 4 300-30 mg hours as per tablet needed for Pain. silver 2016-02 Yes QD Apply to [place] sulfADIAZIN 0-09 affected Heal th E 00:00: area daily (SILVADENE) 00 Apply to 1 % topical purple cream discolored areas of breasts. Tylenol # 3 Tylenol # 3 Yes Jerod one tab [facility] l Outpati ent Clinics Immunizations Ordered Immunization Filled Immunization Date Status Commen ts Source Name Name FLUCELVAX QUAD PF 2018-02-09 Completed [place] 00:00:00 [facility] Influenza Vaccine 2016-11-25 Completed [facility] 00:00:00 Procedures Procedure Date / Time Performed Performing Clinician Sour e MRI THORACIC SPINE WO 2019-09-09 09:49:03 Kade Velazquez [facility] CONTRAST MRI CERVICAL SPINE WO 2019-09-09 09:17:00 Kade Velazquez [facility] CONTRAST MRI LUMBAR SPINE WO 2019-09-09 09:02:00 Kade Velazquez on [facility] CONTRAST XR SPINE SCOLIOSIS 2-3 2019-09-01 13:19:40 Kade Velazquez [facility] VIEWS Plan of Care Planned Activity Planned Date Details Comments Source Future Scheduled 2019-11-20 IMM Influenza [facility] Test 00:00:00 Seasonal Nov to April (>/= 19 yrs) [code = IMM Influenza Seasonal Oct to April (>/= 19 yrs)] Future Scheduled 2019-10-[address] [facility] - Test 00:00:00 (#1) [code = [facility] Center INFLUENZA VACCINE (#1)] Future Scheduled 2019-09-20 INFLUENZA VACCINE Huangto p[facility] Test 00:00:00 [code = INFLUENZA VACCINE] Future Scheduled 2018-08-24 [facility] Test 00:00:00 (Yearly) [code = Breast Cancer Scrn (Yearly)] Future Scheduled 1995-12-[address] [facility] - Test 00:00:00 malignant neoplasm Medical C enter of cervix (procedure) [code = 576553781] Future Scheduled 1995-12-24 Screening for [facility] Test 00:00:00 malignant neoplasm of cervix (procedure) [code = 460611461] Future Scheduled 1995-12-24 Screening for Faheem polanco Test 00:00:00 malignant neoplasm of cervix (procedure) [code = 240813183] Encounters Start End Encounter Admission Attending Care Care Encounter Source Date/Time Date/Time Type Type Clinicians Facility Department ID 2016-12-11 Inpatient [facility] [id number] H arris 19:13:58 [facility] 2016-11-22 Inpatient [facility] [id number] H arris 15:22:01 [facility] 2016-11-21 Inpatient [facility] [id number] H arris 01:48:38 [facility] 2016-11-21 Inpatient [facility] [id number] H arris 01:48:30 [facility] 2016-11-20 Inpatient [facility] [id number] H arris 05:55:00 [facility] 2019-11-05 2019-11-05 Outpatient [facility] [id number] 05:21:00 05:21:00 petros Scru[facility] 2019-09-26 2019-10-21 Office [place] [id number] 15:30:31 21:51:55 Visit [facility] [id number] [place] [id number] 2019-10-07 2019-10-07 Outpatient [facility] [id number] 09:00:00 09:00:00 petros Scruggs l [facility] 2019-09-09 2019-09-09 [id number] [place] 00:00:00 00:00:[address] KADE [address] 2019-09-09 2019-09-09 Outpatient [facility] [id number] [place] 00:00:00 00:00:00 KADE [address] 2019-09-09 2019-09-09 Outpatient [facility] [id number] [place] 00:00:00 00:00:00 KADE [address] 2019-09-01 2019-09-01 Outpatient [facility] [id number] [place] 00:00:00 00:00:00 KADE [address] 2019-09-01 2019-09-01 Outpatient [facility] [id number] [place] 00:00:00 00:00:00 KADE [address] 2018-10-04 2018-10-04 Office CELE Montenegro [id number] 09:32:10 10:24:11 Visit Tianna AMBULATOR [id number] Shawna Gómez [id number] 2018-04-03 2018-04-03 Outpatient [facility] [id number] [place] 00:00:00 00:00:00 Health 2018-03-12 2018-03-12 [facility] [id number] 13:30:00 13:30:00 [facility] 2018-01-09 2018-01-09 Outpatient [facility] [id number] [place] 00:00:00 00:00:00 [facility] 2017-12-26 2017-12-26 Outpatient [facility] [id number] [place] 00:00:00 00:00:00 [facility] 2017-12-25 2017-12-25 Outpatient [facility] [id number] [place] 00:00:00 00:00:00 [facility] 2017-11-21 2017-11-21 Outpatient [facility] [id number] [place] 12:12:10 12:12:10 [facility] 2017-11-19 2017-11-19 [facility] [id number] 09:00:00 09:00:00 [facility] Clinics 2017-11-16 2017-11-16 Outpatient [facility] [id number] [place] 08:30:23 08:30:23 Health 2017-11-12 2017-11-12 [facility] [id number] 14:22:00 14:22:00 [facility] ent [facility] 2017-11-12 2017-11-12 Outpatient [facility] [id number] [place] 00:00:00 00:00:00 [facility] 2017-11-08 2017-11-08 Outpatient [facility] [id number] [place] 00:00:00 00:00:00 [facility] 2017-11-05 2017-11-05 [facility] [id number] 10:03:00 10:03:00 [facility] Clin[facility] 2017-10-29 2017-10-29 [facility] [id number] 08:00:00 08:00:00 [facility] Clinics 2017-10-11 2017-10-11 Outpatient [facility] [id number] [place] 09:34:54 09:34:54 [facility] 2017-10-10 2017-10-10 Outpatient [facility] [id number] [place] 00:00:00 00:00:00 [facility] 2017-10-03 2017-10-03 Outpatient [facility] [id number] [place] 00:00:00 00:00:00 [facility] 2017-09-28 2017-09-28 Outpatient [facility] [id number] [place] 06:43:36 06:43:36 [facility] 2017-09-28 2017-09-28 Outpatient [facility] [id number] [place] 00:00:00 00:00:00 [facility] 2017-09-28 2017-09-28 Outpatient [facility] [id number] [place] 00:00:00 00:00:00 [facility] 2017-09-26 2017-09-26 Outpatient [facility] [id number] [place] 13:42:42 13:42:42 [facility] 2017-09-26 2017-09-26 Outpatient [facility] [id number] [place] 00:00:00 00:00:00 [facility] 2017-09-21 2017-09-21 Outpatient [facility] [id number] [place] 00:00:00 00:00:00 [facility] 2017-09-19 2017-09-19 Outpatient [facility] [id number] [place] 14:50:01 14:50:01 [facility] 2017-09-19 2017-09-19 Outpatient [facility] [id number] [place] 13:16:35 13:16:35 [facility] 2017-09-12 2017-09-12 Outpatient [facility] [id number] [place] 00:00:00 00:00:00 [facility] 2017-08-24 2017-08-24 Outpatient [facility] [id number] [place] 09:22:38 09:22:38 [facility] 2017-07-27 2017-07-27 Outpatient [facility] [id number] [place] 10:35:47 10:35:47 [facility] 2017-07-05 2017-07-05 Outpatient [facility] [id number] [place] 12:15:23 12:15:23 [facility] 2017-07-03 2017-07-03 Outpatient [facility] [id number] [place] 00:00:00 00:00:00 [facility] 2017-05-23 2017-05-23 Outpatient [facility] [id number] [place] 13:13:44 13:13:44 [facility] 2017-05-02 2017-05-02 Outpatient [facility] [id number] [place] 00:00:00 00:00:00 [facility] 2017-04-25 2017-04-25 Outpatient [facility] [id number] [place] 09:01:53 09:01:53 [facility] 2017-04-17 2017-04-17 Outpatient [facility] [id number] [place] 06:05:00 06:05:00 [facility] 2017-04-17 2017-04-17 Outpatient [facility] [id number] [place] 00:00:00 00:00:00 [facility] 2017-04-16 2017-04-16 Outpatient [facility] [id number] [place] 00:00:00 00:00:00 [facility] 2017-04-13 2017-04-13 Outpatient [facility] [id number] [place] 09:12:04 09:12:04 [facility] 2017-04-03 2017-04-03 Outpatient [facility] [id number] [place] 00:00:00 00:00:00 [facility] 2017-03-27 2017-03-27 Outpatient [facility] [id number] [place] 06:15:00 06:15:00 [facility] 2017-03-27 2017-03-27 Outpatient [facility] [id number] [place] 00:00:00 00:00:00 [facility] 2017-03-19 2017-03-19 Outpatient [facility] [id number] [place] 13:22:16 13:22:16 [facility] 2017-03-19 2017-03-19 Outpatient [facility] [id number] [place] 00:00:00 00:00:00 [facility] 2017-03-12 2017-03-12 Outpatient [facility] [id number] [place] 13:45:55 13:45:55 [facility] 2017-03-09 2017-03-09 Outpatient [facility] [id number] [place] 00:00:00 00:00:00 [facility] 2017-03-08 2017-03-08 Outpatient [facility] [id number] [place] 16:03:22 16:03:22 [facility] 2017-03-08 2017-03-08 Outpatient [facility] [id number] [place] 14:45:05 14:45:05 [facility] 2017-02-23 2017-02-23 Outpatient [facility] [id number] [place] 10:41:02 10:41:02 [facility] 2017-02-23 2017-02-23 Outpatient [facility] [id number] [place] 08:11:53 08:11:53 [facility] 2017-02-23 2017-02-23 Outpatient [facility] [id number] [place] 07:53:43 07:53:43 [facility] 2017-02-23 2017-02-23 Outpatient [facility] [id number] [place] 00:00:00 00:00:00 [facility] 2017-02-08 2017-02-08 Outpatient [facility] [id number] [place] 12:32:00 12:32:00 [facility] 2017-01-24 2017-01-24 Outpatient [facility] [id number] [place] 00:00:00 00:00:00 [facility] 2017-01-23 2017-01-23 Outpatient [facility] [id number] [place] 12:16:30 12:16:30 [facility] 2017-01-22 2017-01-22 Outpatient [facility] [id number] [place] 11:30:20 11:30:20 [facility] 2017-01-15 2017-01-15 Outpatient [facility] [id number] [place] 00:00:00 00:00:00 [facility] 2017-01-09 2017-01-09 Outpatient [facility] [id number] [place] 09:09:26 09:09:26 [facility] 2017-01-04 2017-01-04 Outpatient [facility] [id number] [place] 14:36:02 14:36:02 [facility] 2017-01-02 2017-01-02 Outpatient [facility] [id number] [place] 08:36:10 08:36:10 [facility] 2016-12-27 2016-12-27 Outpatient [facility] [id number] [place] 11:33:15 11:33:15 [facility] 2016-12-22 2016-12-22 Outpatient [facility] [id number] [place] 09:02:45 09:02:45 [facility] 2016-12-11 2016-12-11 Outpatient [facility] [id number] [place] 09:01:19 09:01:19 [facility] 2016-12-11 2016-12-11 Inpatient [facility] [id number] [place] 14:16:44 00:00:00 [facility] 2016-12-07 2016-12-07 Outpatient [facility] [id number] [place] 00:00:00 00:00:00 [facility] 2016-12-06 2016-12-06 Outpatient [facility] [id number] [place] 14:40:31 14:40:31 [facility] 2016-12-04 2016-12-04 Outpatient [facility] [id number] [place] 10:31:01 10:31:01 [facility] 2016-11-27 2016-11-27 Outpatient [facility] [id number] [place] 00:00:00 00:00:00 [facility] 2016-11-20 2016-11-20 Outpatient [facility] [id number] [place] 00:00:00 00:00:00 [facility] 2016-11-20 2016-11-20 Outpatient [facility] [id number] [place] 00:00:00 00:00:00 [facility] 2016-11-17 2016-11-17 Outpatient [facility] [id number] [place] 00:00:00 00:00:00 [facility] 2016-10-12 2016-10-12 Outpatient [facility] [id number] [place] 00:00:00 00:00:00 [facility] 2016-10-10 2016-10-10 Outpatient [facility] [id number] [place] 00:00:00 00:00:00 [facility] 2016-10-10 2016-10-10 Outpatient [facility] [id number] [place] 00:00:00 00:00:00 [facility] 2016-10-10 2016-10-10 Outpatient [facility] [id number] [place] 00:00:00 00:00:00 [facility] 2016-09-15 2016-09-15 Outpatient [facility] [id number] [place] 00:00:00 00:00:00 [facility] 2016-08-30 2016-08-30 Outpatient [facility] [id number] [place] 09:44:27 09:44:27 Health Results Test Test Test Comments Results Result Source Description Time Comments MRI Thoracic 2019-08 Interface, Radiology [place] Spine Wo -21 Results Incoming - Method ist Contrast 10:05:4 09/09/2019 10:08 AM 1 CDTMRI of the thoracic spine without contrastHistory: Cervical spondylosis with radiculopathy. Radicular syndrome of the left leg. Fusion of lumbar spineComparison: Same day MRI of the cervical and lumbar spineTechnique: Multiplanar multiplanar multisequence MRI of the thoracic spine.Contrast: NoneComplications: NoneFINDINGS:Alignment: Normal kyphosis. No scoliosisSoft tissues: No signal abnormalitiesPartially visualized anterior fusion of the cervical spineSpinal cord: Normal in signal and morphology.Vertebrae: No fractures, infection or neoplasm.Degenerative changes:Mild disc degeneration with loss of T2 signal from T2 through T10. Grossly patent canal and foraminaIMPRESSION: 1. Minimal disc degeneration of the upper and mid thoracic spine without significant canal stenosis or foraminal narrowing MRI Cervical 2019-08 Interface, Radiology [place] [facility] -21 Results Incoming - Method ist Contrast 09:35:2 09/09/2019 9:38 AM 6 CDTEXAMINATION: MRI CERVICAL SPINE WO CONTRASTCOMPARISON: December 24, 2017.CLINICAL HISTORY: M47.22 Other spondylosis with radiculopathy cervical region, M54.10 Radiculopathy site unspecified, Neck pain initial examCOMMENTS: Sagittal and axial MR images of the cervical spine were obtained.FINDINGS: C2-C3 shows progressive minimal right facet degenerative change.C3-4 shows mild disc bulge mild facet and uncovertebral joint degenerative change. These findings show slight progression.There are now anterior metallic plate and screws from C4 to C7.C7-T1 shows mild facet disease.There is no significant subluxation. The signal within the spinal cord is intact.IMPRESSION: Postoperative and degenerative change.[id number] MRI Lumbar 2019-08 Interface, Radiology [facility] Spine Wo -21 Results Incoming - Method ist Contrast 09:14:0 09/09/2019 9:17 AM 8 CDTEXAMINATION: MRI LUMBAR SPINE WO CONTRASTCOMPARISON: CT scan October 10, 2018.CLINICAL HISTORY: M47.22 Other spondylosis with radiculopathy cervical region, M54.10 Radiculopathy site unspecified, L S-spine stenosisCOMMENTS: Sagittal and axial MR images of the lumbar spine are provided.FINDINGS: The numbering assumes fusion at L5-S1 disc. The minimal anterior subluxation of L5 on S1 is again identified. Pedicle screws are noted from L4 to S1. Bilateral laminectomy change suspected at L5-S1.L4-5 shows mild facet disease. There is mild disc bulge.L3-4 shows stable mild left paracentral disc protrusion. There is mild facet disease ligament flavum thickening.L2-3 again shows a broad-based central disc protrusion. There is mild facet disease ligament flavum thickening. Mild endplate degenerative change. Tiny superior endplate defect with edema is noted towards the right side at upper L3 vertebral body and in the lower L2 vertebral body.The upper level show mild facet disease. The conus ends at the lower L1 level.IMPRESSION: Tiny new endplate defects with edema noted at the lower L2 vertebral body and upper L3 vertebral body towards the right. Otherwise grossly stable appearance of the lumbar spine compared to the previous study.[id number] TISSUE EXAM 2018-08 Surgical Pathology Report - 15:56:0 Case: [id number] Authorizing Provider: Mai Nuñez MD Collected: 08/14/2018 1452 Ordering Location: [facility] Endoscopy Received: 08/15/2018 0833 Services Pathologist: [...] (SEE COMMENT) Signing Pathologist Direct Phone Line: [phone] y signed by Elsy Collier MD on 08/19/2018 [...] including lymphocytic colitis. Clinical correlation is recommended. 19065 X 4, [id number] abdominal pain, LLQ abdominal pain A. Duodenum [...] included the use of immunohistochemistry or special stains.WARTHIN-STARRYCont rol Slides Examined: In-house known positive controls were evaluated along with the test tissue. These control slides run alongside of the patients sample show appropriate staining. Internal positive and negative controls when available are evaluated Immunohistochemistry technical testing was performed at [facility], Pathology Laboratory where it was developed and [...] perform high complexity clinical laboratory testing. RAD, 2018-03 Reason for FINAL REPORT PATIENT ID: ABDOMEN/KUB, Exam:->epigastr [id number] Exam: VIEW AP 16:12:0 ic abdominal Abdominal radiograph 0 painReason for History: Constipation Exam:->constipa Comparison: None. tion, Findings: Nonobstructive unspecified bowel gas pattern. Mild constipation amount retained stool. type Multiple surgical clips. Impression: No acute osseous abnormality Mild amount of retained stool Signed: Luisito Shafer MDReport Verified Date/Time: 04/16/2018 16:12:35
--- OUTSIDE RECORDS SUMMARY | 2019-12-09 18:25 | XMS REPORT | Clinical Summary ---
:1975 Author Organization [facility] Address [address] [place] [address] Care Team Providers Name Role Phone Phu Paul MD Primary Care Provider Phu Paul MD Unavailable Allergies No Known Allergies Medications Medication Sig Dispensed Refills Start Date End Date Status fgksod-kjdrxekf-dslsdxe Take 36,000 0 Active (CREON) 36,000-114,000- units of lipase 180,000 unit CpDR by mouth 3 capsule (three) times daily. metoclopramide HCl Take 10 mg by 0 Active (REGLAN) 10 MG tablet mouth 2 (two) times daily. Active Problems Not on file Social History Tobacco Use Types Packs/Day Years Used Date Never Smoker Smokeless Tobacco: Never Used Alcohol Use Drinks/Week oz/Week Comments Yes 1 per 3 months Sex Assigned at Date Recorded Not on file Last Filed Vital Signs Not on file Plan of Treatment Health Maintenance Due Date Last Done Comments CERVICAL CANCER SCREENING PAP ONLY (Age 21-65) 12/24/1995 INFLUENZA VACCINE (#1) 2019 02/09/2018 Results Not on fileafter 12/08/2018 Insurance Payer Benefit Plan / Subscriber ID Effective Phone Address T ype Group Dates MEDICAID - MEDICAID COMM [id number] 2014-Prese Medicaid MEDICAID [facility] HEALTH CHOICE nt Con tracted CARE
[2019-12-09] MEDS ORDERED: MECLIZINE HCL 12.5 MG TAB ONE (19:55)
[2019-12-09 20:08] LABS: Absolute Lymphocytes (CBC) 2.6 K/uL (0.7-4.9); Basophils % 1.3 % (0-1.3); Hematocrit 39.7 % (36.0-45.0); Lymphocytes % 36.5 % (15.3-44.8); MPV 9.3 fL (7.6-11.3); RBC Red Blood Cell Count 4.75 M/uL (3.86-4.86)
[2019-12-09 20:11] LABS: Protime INR 0.92
[2019-12-09 20:32] LABS: ALT/SGPT 27 U/L (12-78); Albumin 3.9 g/dL (3.4-5.0); Alkaline Phosphatase 88 U/L (45-117); BUN Blood Urea Nitrogen 13 mg/dL (7-18); Bicarbonate 29 mmol/L (21-32); Bilirubin Direct < 0.1 mg/dL (0-0.2); Bilirubin Total 0.2 mg/dL (0.2-1.0); Glucose Level 104 mg/dL (74-106); NT PRO-BNP 53 pg/mL (<125); Protein, Total 7.6 g/dL (6.4-8.2); Sodium Level 140 mmol/L (136-145); Troponin (Emerg Dept Use Only) < 0.02 ng/mL (0.0-0.045)
--- NOTE | 2019-12-09 20:36 | RAD REPORT ---
EXAM DESCRIPTION: CT - Head Brain Wo Cont - 12/09/2019 8:24 pm CLINICAL HISTORY: Dizziness COMPARISON: 2019 TECHNIQUE: Computed axial tomography of the head was obtained. IV contrast was not requested. All CT scans are performed using dose optimization technique as appropriate and may include automated exposure control or mA/KV adjustment according to patient size. FINDINGS: An intracranial bleed is not seen . The ventricles are normal in caliber. 3 x 1.5 centimeter low-density fluid collection is present along the left temporal convexity having t he appearance of an arachnoid cyst. It is unchanged Fluid within the sinuses/ mastoids is not seen. IMPRESSION: No acute intracranial abnormality is seen. If patient's symptoms persist MRI of the bra in would be recommended.
[2019-12-09 20:40] LABS: AST/SGOT 17 U/L (15-37)
[2019-12-09 20:41] LABS: Magnesium 2.1 mg/dL (1.8-2.4)
--- NOTE | 2019-12-09 20:58 | RAD REPORT ---
EXAM DESCRIPTION: Daphnie Single View12/09/2019 8:49 pm CLINICAL HISTORY: Abdominal pain COMPARISON: none FINDINGS: The lungs appear clear of acute infiltrate. The heart is normal size IMPRESSION: No acute abnormalities displayed
[2019-12-09] MEDS ORDERED: DIAZEPAM 10 MG/2 ML INJ SYRINGE ONE (21:10)
--- NOTE | 2019-12-09 21:41 | ER ---
Nurse's Notes [facility] Name: Mildred Caldwell Age: 43 yrs Sex: Female : 1975 Arrival Date: 12/09/2019 Time: 18:22 Bed 20 [facility] MD: Diagnosis: Vertigo Presentation: 12/08 19:11 Chief complaint: Patient states: After eating lunch today she noticed pain to LUQ, last ll1 about 1.5 hours. Than at 1630, she bent over and suddenly felt very dizzy. Dizzy, lightheaded since. No fever. Reports palpitations since 1630. Slight left ear pain noticed today. Coronavirus screen: Client denies travel out of the [place] in the last 14 days. At this time, the client does not indicate any symptoms associated with coronavirus-19. Ebola Screen: Patient denies travel to an Ebola-affected area in the 21 days before illness onset. Initial Sepsis Screen: Does the patient meet any 2 criteria? No. Patient's initial sepsis screen is negative. Does the patient have a suspected source of infection? No. Patient's initial sepsis screen is negative. Risk Assessment: Do you want to hurt yourself or someone else? Patient reports no desire to harm self or others. Onset of symptoms was December 09, 2019. 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 - Social history:: Smoking status: Patient denies any tobacco usage or history of. Screenin:02 Abuse screen: Denies threats or abuse. Nutritional screening: No deficits noted. jd3 Tuberculosis screening: No symptoms or risk factors identified. Fall Risk IV access (20 points). Ambulatory Aid- None/Bed Rest/Nurse Assist (0 pts). Gait- Normal/Bed Rest/Wheelchair (0 pts) Mental Status- Oriented to own ability (0 pts). Total Castaneda Fall Scale indicates No Risk (0-24 pts). Assessment: 20:00 General: Appears in no apparent distress. uncomfortable, Behavior is calm, cooperative, jd3 appropriate for age. Pain: Complains of pain in head Quality of pain is described as pressure. Neuro: Level of Consciousness is awake, alert, obeys commands, Oriented to person, place, time, situation, Reports dizziness. Cardiovascular: Denies chest pain, Capillary refill < 3 seconds Patient's skin is warm and dry. Respiratory: Airway is patent Respiratory effort is even, unlabored, Respiratory pattern is regular, symmetrical, Denies cough, shortness of breath. GI: Abdomen is round non-distended, Patient currently denies vomiting. : No signs and/or symptoms were reported regarding the genitourinary system. EENT: No signs and/or symptoms were reported regarding the EENT system. Derm: Skin is intact, Skin is dry, Skin is normal, Skin temperature is warm. Musculoskeletal: Circulation, motion, and sensation intact. Range of motion: intact in all extremities. 20:37 Reassessment: Patient appears in no apparent distress at this time. No changes from jd3 previously documented assessment. Patient and/or family updated on plan of care and expected duration. Pain level reassessed. Patient is alert, oriented x 3, equal unlabored respirations, skin warm/dry/pink. 21:31 Reassessment: Patient appears in no apparent distress at this time. Patient and/or jd3 family updated on plan of care and expected duration. Pain level reassessed. Patient is alert, oriented x 3, equal unlabored respirations, skin warm/dry/pink. Patient states feeling better. Patient states symptoms have improved. Vital Signs: 19:11 BP 141 / 87; Pulse 71; Resp 17; Temp 97.8; Pulse Ox 100% ; Weight 72.57 kg; Height 5 ll1 ft. 6 in. (167.64 cm); Pain 7/10; 20:37 BP 142 / 96; Pulse 72; Resp 17 S; Pulse Ox 99% on R/A; jd3 21:31 BP 124 / 85; Pulse 71; Resp 16 S; Pulse Ox 97% on R/A; jd3 19:11 Body Mass Index 25.82 (72.57 kg, 167.64 cm) ll1 ED Course: 18:22 Patient arrived in ED. ag5 19:15 Triage completed. ll1 19:16 Arm band placed on. ll1 19:23 Manfred Anaya PA is PHCP. [facility] 19:23 Peng Jackson MD is Attending Physician. jmm 19:27 Bed in low position. Call light in reach. Side rails up X 1. Verbal reassurance given. jp3 playground monitor on. Pulse ox on. NIBP on. 19:27 EKG done, by ED staff, reviewed by Manfred BLAND. jp3 19:39 Zach Gore, RN is Primary Nurse. jd3 19:55 Missed attempt(s): 20 gauge in left antecubital area. Bleeding controlled, band aid jd3 applied, catheter tip intact. 20:02 Inserted saline lock: 20 gauge in right wrist, using aseptic technique. Blood collected.jd3 20:24 CT Head Brain wo Cont In Process Unspecified. EDMS 20:49 XRAY Chest (1 view) In Process Unspecified. EDMS 21:31 No provider procedures requiring assistance completed. jd3 21:41 Shahida Alejo MD is Referral Physician. [facility] 21:47 IV discontinued, intact, bleeding controlled, No redness/swelling at site. Pressure jd3 dressing applied. Administered Medications: 20:00 Drug: Meclizine 50 mg Route: PO; jd3 21:00 Follow up: Response: No adverse reaction jd3 21:05 Drug: Valium 5 mg Route: IVP; Site: right wrist; jd3 21:47 Follow up: Response: No adverse reaction jd3 Outcome: 21:41 Discharge ordered by MD. [facility] 21:47 Discharged to home ambulatory, with family. jd3 21:47 Condition: stable 21:47 Discharge instructions given to patient, Instructed on discharge instructions, follow up and referral plans. medication usage, Demonstrated understanding of instructions, follow-up care, medications, Prescriptions given X 1. 21:47 Patient left the ED. jd3 Signatures: Dispatcher [employer] EDMS Manfred Anaya PA PA jmm Davies, Jonathon, RN RN jd3 Charli Castaneda jp3 Jorge Yu5 Faheem Demarco RN RN ll1 Corrections: (The following items were deleted from the chart) 19:16 19:11 Chief complaint: Patient states: After eating lunch today she noticed pain to ll1 LUQ, last about 1.5 hours. Than at 1630, she bent over and suddenly felt very dizzy. Dizzy, lightheaded since. No fever. ll1 20:39 20:37 Pulse 67bpm; Resp 17bpm; Spontaneous; Pulse Ox 97% RA; jd3 jd3
--- NOTE | 2019-12-09 21:41 | EDPHYS ---
Physician Documentation [facility] Name: Mildred Caldwell Age: 43 yrs Sex: Female : 1975 Arrival Date: 12/09/2019 Time: 18:22 Bed 20 Private MD: ED Physician Peng Jackson HPI: 12/08 19:38 This 43 yrs old Female presents to ER via Ambulatory with complaints of jmm Dizziness, Nausea. 19:38 The patient presents with dizziness. Onset: The symptoms/episode began/occurred jmm acutely, today. Modifying factors: The symptoms are alleviated by holding head still, the symptoms are aggravated by movement of head, standing up, changing position. Associated signs and symptoms: Pertinent positives: nausea. This is a 43 year old female with a history of htn that presents to the ED with complaints of left ear pain and dizziness which worsens with changes in position and head movement. Patient has had similar episodes in the past but not as intense. Patient also complains of left ear pain. . 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 - Social history:: Smoking status: Patient denies any tobacco usage or history of. ROS: 19:38 Constitutional: Negative for fever, chills, and weight loss, Cardiovascular: Negative jmm for chest pain, palpitations, and edema, Respiratory: Negative for shortness of breath, cough, wheezing, and pleuritic chest pain. 19:38 Neuro: Positive for dizziness. 19:38 All other systems are negative. Exam: 19:38 Constitutional: This is a well developed, well nourished patient who is awake, alert, jmm and in no acute distress. Head/Face: atraumatic. 19:38 ENT: Moist Mucus Membranes Neck: Trachea midline, Supple Chest/axilla: Normal chest wall appearance and motion. Cardiovascular: Regular rate and rhythm. No edema appreciated Respiratory: Normal respirations, no respiratory distress appreciated Abdomen/GI: Non distended, soft Back: Normal ROM Skin: General appearance color normal MS/ Extremity: Moves all extremities, no obvious deformities appreciated, no edema noted to the lower extremities 19:38 Eyes: Extraocular movements: intact throughout, Nystagmus: nystagmus with fast component noted, bilaterally. 19:38 Neuro: Orientation: is normal, Mentation: is normal, Memory: is normal, Cerebellar function: normal finger to nose testing, heel to fuller testing is normal, Motor: is normal. 19:38 Psych: Behavior/mood is pleasant, cooperative. Vital Signs: 19:11 BP 141 / 87; Pulse 71; Resp 17; Temp 97.8; Pulse Ox 100% ; Weight 72.57 kg; Height 5 ll1 ft. 6 in. (167.64 cm); Pain 7/10; 20:37 BP 142 / 96; Pulse 72; Resp 17 S; Pulse Ox 99% on R/A; jd3 21:31 BP 124 / 85; Pulse 71; Resp 16 S; Pulse Ox 97% on R/A; jd3 19:11 Body Mass Index 25.82 (72.57 kg, 167.64 cm) ll1 MDM: 19:38 Patient medically screened. [facility] 21:38 Data reviewed: vital signs, nurses notes. Counseling: I had a detailed discussion with terell the patient and/or guardian regarding: the historical points, exam findings, and any diagnostic results supporting the discharge/admit diagnosis, lab results, radiology results, the need for outpatient follow up, to return to the emergency department if symptoms worsen or persist or if there are any questions or concerns that arise at home. ED course: Patient is alert and non toxic in appearance. Normal cerebellar exam. Symptoms resolved after administration of valium. I do not suspect central cause. Patient is advised to follow up with ent for further evaluation and otherwise given strict return precautions. patient understood and agrees with the plan of care. . 12/08 19:39 Order name: Basic Metabolic Panel; Complete Time: 20:41 [facility] 12/08 19:39 Order name: CBC with Diff; Complete Time: 20:41 [facility] 12/08 19:39 Order name: LFT's; Complete Time: 20:41 [facility] 12/08 19:39 Order name: Magnesium; Complete Time: 20:41 [facility] 12/08 19:39 Order name: NT PRO-BNP; Complete Time: 20:41 [facility] 12/08 19:39 Order name: PT-INR; Complete Time: 20:41 [facility] 12/08 19:39 Order name: Troponin (emerg Dept Use Only); Complete Time: 20:41 [facility] 12/08 19:39 Order name: XRAY Chest (1 view); Complete Time: 21:01 [facility] 12/08 19:39 Order name: EKG; Complete Time: 19:41 [facility] 12/08 19:39 Order name: Cardiac monitoring; Complete Time: 19:40 [facility] 12/08 19:39 Order name: EKG - Nurse/Tech; Complete Time: 19:40 [facility] 12/08 19:39 Order name: CT Head Brain wo Cont; Complete Time: 20:41 [facility] 12/08 19:39 Order name: IV Saline Lock; Complete Time: 20:00 [facility] 12/08 19:39 Order name: Labs collected and sent; Complete Time: 20:00 [facility] 12/08 19:39 Order name: O2 Per Protocol; Complete Time: 19:40 [facility] 12/08 19:39 Order name: O2 Sat Monitoring; Complete Time: 19:40 jmm Administered Medications: 20:00 Drug: Meclizine 50 mg Route: PO; jd3 21:00 Follow up: Response: No adverse reaction jd3 21:05 Drug: Valium 5 mg Route: IVP; Site: right wrist; jd3 21:47 Follow up: Response: No adverse reaction jd3 Disposition: 21:48 Co-signature as Attending Physician, Peng Jackson MD. rn Disposition: 12/09/19 21:41 Discharged to Home. Impression: Vertigo. - Condition is Stable. - Discharge Instructions: Benign Positional Vertigo, Joe Maneuver Self-Care. - Prescriptions for Valium 5 mg Oral Tablet - take 1 tablet by ORAL route every 8 hours As needed; 20 tablet. - Medication Reconciliation Form, Thank You Letter, Antibiotic Education, Prescription Opioid Use form. - Follow up: Shahida Alejo MD; When: 2 - 3 days; Reason: Recheck today's complaints, Continuance of care, Re-evaluation by your physician. Signatures: Dispatcher [employer] EDMS Manfred Anaya PA PA Peng Berg MD MD rn Davies, Jonathon, RN RN jd3 Dav, Lynsay, RN RN ll1 Corrections: (The following items were deleted from the chart) 21:47 21:41 12/09/2019 21:41 Discharged to Home. Impression: Vertigo. Condition is Stable. jd3 Forms are Medication Reconciliation Form, Thank You Letter, Antibiotic Education, Prescription Opioid Use. Follow up: Shahida Alejo; When: 2 - 3 days; Reason: Recheck today's complaints, Continuance of care, Re-evaluation by your physician. emi
[2019-12-09 22:37] VITALS: TEMP 97.8
[2019-12-09 22:40] VITALS: BP 124/85; O2SAT 97
--- NOTE | 2019-12-10 11:28 | EKG ---
Test Date: 2019-12-09 Test Time: 19:23:03 Retail Attendant: MARCUS MEASUREMENT RESULTS: Intervals: Rate: 65 DC: 138 QRSD: 100 QT: 414 QTc: 430 [place]: P: 67 DC: 138 QRS: 64 T: 65 INTERPRETIVE STATEMENTS: Normal sinus rhythm Incomplete right bundle branch block Borderline ECG Compared to ECG 10/09/2018 15:14:36 No significant changes Electronically Signed On 12-10-19 11:27:07 CDT by Byron Fields
== END 2019-12-09 21:47 | disposition home or self-care (01) ==
LOC: ER 18:21
DX: R42 Dizziness and giddiness (principal); H92.02 Otalgia, left ear; I10 Essential (primary) hypertension; Z88.5 Allergy status to narcotic agent
CPT/HCPCS: 93005; 85025; 80048; 36415; 83735; 85610; 80076; 84484; 83880; 70450; 71045; 96374; 99284; J3360

== ENCOUNTER 2020-02-21 19:30 | Emergency (ER) | payer OTHER ==
--- OUTSIDE RECORDS SUMMARY | 2020-02-21 19:32 | XMS REPORT | Clinical Summary ---
:1975 Author Organization [facility] Address [address] [place] [id number] Care Team Providers Name Role Phone Unavailable Primary Care Provider Unavailable Allergies No Known Active Allergies Medications Medication Sig Dispensed Refills Start [...] Added automatically from request for kirsty benedict [id number] Endometrial polyp 02/23/2017 S/P TRAM (transverse rectus abdominis muscle) flap aly ast reconstruction 02/08/2017 Acquired absence of breast 11/20/2016 BRCA gene positive 11/20/2016 Acquired absence of breast and absent nipple 7 BRCA2 gene mutation positive 06/28/2016 Overview: 08/01/2016 see in [facility]. Interested in RRBSO. Plan to do after mastectomy/recontruction. CA-125 ordered. TVUS scheduled 08/18/16. Plan for [id number] surveillance until risk reducing BSO. 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 Device Shelf Model / Identifier Expiration Serial / Date Lot Angel Woven Mesh Undyed Abdomen 09/18 [id number] / Implanted: Qty: 1 on 11/20/2016 by Deyvi Hidalgo MD at [facility] / [id number] [employer] Left: 02/21/2021 [id number] / Implanted: Qty: 1 on 11/20/2016 by Deyvi Hidalgo MD at [facility] Breast(s) / [id number] [employer] Left: [employer] Micro 06/19/2021 GEM / Implanted: Qty: 1 on 11/20/2016 by Deyvi Hidalgo MD at [facility] Breast(s) [place] / [id number] [employer] Left: [employer] Micro 04/14/2021 GEM [id number] / Implanted: Qty: 1 on 11/21/2016 by Deyvi Hidalgo MD at [facility] Breast(s) [place] / [id number] Results Not on fileafter 02/20/2019 Insurance Payer Benefit Plan / Subscriber ID Effective Phone Address T ype Group Dates [facility] [id number] 2017-Laisha [phone] [employer] HEALTH CHOICE nt [id number] [place] [address] Advance Directives Code Status Date Activated Date Inactivated Comments Full Code 11/21/2016 11:05 AM 11/27/2016 1:56 PM
--- OUTSIDE RECORDS SUMMARY | 2020-02-21 19:33 | XMS REPORT | Continuity of Care Document ---
:1975 Author Organization [facility] t Address [address] [place] [address] Care Team Providers Name Role Phone Phu Paul MD Primary Care Physician Tommy Velazquez Attending Clinician Yonny GENAO Attending Clinician Unavailable Phu SUAREZ Attending Clinician Shawna Montenegro PA-C Attending Clinician Navjot NUÑEZ Attending Clinician Unavailable Navjot NUÑEZ Admitting Clinician Unavailable Payers Payer Name Policy Type Policy Effective Date Expiration Date Formerly [facility] ce Number FORMERLY [facility] [id number] 2017 [facility] 00:00:00 Taoist [facility] CHC/STAR [id number] O Problems Condition Condition Condition Status Onset Resolution Last Treating Co mments Source Name Details Category Date Date Treatment Clinician Date Cervical Cervical Disease Active 2017-02 [place] spondylosi spondylosi 2-21 Me thodi s with s with 00:00: st radiculopa radiculopa 00 thy thy History of History of Disease Active Overview : Faheem colonoscop colonoscop 10-01 Formerly [facility] y 09/2017 y 09/2017 00:00: repeating 00 colonosco py in 10yrs and forgo annual FIT in the interim. Mood Mood Disease Active Faheem swings swings 7-06 Health 00:00: 00 BRCA gene BRCA gene Disease Active Overview: Faheem mutation mutation 1-22 Added Health positive positive 00:00: automatic 00 ally from request for surgery [id number] Endometria Endometria Disease Active H arris l polyp l polyp 1-05 Health 00:00: 00 S/P TRAM S/P TRAM Disease Active 2016-02 Talita reich (transvers (transvers 2-21 He alth e rectus e rectus 00:00: abdominis abdominis 00 muscle) muscle) flap flap breast breast reconstruc reconstruc tion tion Acquired Acquired Disease Active 2016-02 Talita reich absence of absence of 0-02 He alth breast breast 00:00: 00 BRCA gene BRCA gene Disease Active 2016-02 Beka ris positive positive 0-02 Health 00:00: 00 Acquired Acquired Disease Active Talita reich absence of absence of 8-14 He alth breast and breast and 00:00: absent absent 00 nipple nipple BRCA2 gene BRCA2 gene Disease Active Overview : Faheem mutation mutation 5-10 08/01/2016 [facility] positive positive 00:00: see in 00 [facility]. Intereste d in RRBSO. Plan to do after mastectom y/recontr uction. CA-125 ordered. TVUS scheduled 08/18/16. Plan for [id number] surveilla nce until risk reducing BSO. 03/27/17: [...] ents Source Name Type Date Date Clinician No Known DA Active U 2019-02 [facility] Allergie 03-27 [place] s 00:00: d 00 [facility] Adhesive Propensi Active Dermatitis 2017-02 Blistered [place] Tape-Renée ty to 2- when Methodi icones adverse 00:00: abdominal st reaction 00 bandage s to left on drug for a week. Family History Family Member Diagnosis Comments Start Date Stop Date Source Natural father Cancer [facility] a lt Natural father Cancer [facility] thodist Natural mother Arthritis [facility] Natural mother Diabetes [facility] Natural mother Diabetes [facility] thodist Natural brother Diabetes [facility] ethodist Social History Social Habit Start Date Stop Date Quantity Comments [facility] Alcohol Std Drinks [facility] Alcohol Binge Sex Assigned At [facility] ethodist Exposure to Not sure [place] Metho dist SARS-CoV-2 (event) Tobacco use and 2018-02-13 2018-02-13 Never used [facility] ethodist exposure 00:00:00 00:00:00 Alcohol intake 2018-02-13 2018-02-[address] [facility] thodist 00:00:00 00:00:00 non-drinker of alcohol (finding) History SDOH 2018-01-28 2018-01-28 1 [place] Meth odist Alcohol Frequency 00:00:00 00:00:00 Alcohol Comment 2015-07-22 2015-07-22 1 per [facility]00 [facility] Smoking Status Start Date Stop Date Source Never smoker [place] Methodis t Medications Ordered Filled Start Stop Current Ordering Indication Dosage Frequency Signature Comments Components Source Medication Medication Date Date Medication? Clinician (SIG) Name Name ibuprofen Yes 600mg Q6H Take [address]on (ADVIL,MOTR 8-22 mg by Methodoscar IN) 600 MG 10:03: mouth st tablet 26 every 6 (six) hours as needed for mild pain. lipase-prot Yes [id number]{ Q.[id number] Take [facility] 6-26 lipase} [id number] 36,000 [facility] - e (CREON) 16:25: 3D [...] Yes Abdominal Add H arris e glycol 8- bloating mirian Delator[facility] (GOLYTELY) 00:00: drinking 236-22.74-6 00 water to .74 -5.86 the fill gram oral michael (4 solution liters) and shake. Drink as directed by your doctor.. venlafaxine Yes Mood swings 37.5mg QD Take 1 [place] (EFFEXOR 7-06 capsule by [facility] XR) 37.5 mg 00:00: mouth extended 00 daily. release capsule acetaminoph Yes BRCA gene 1{tbl} Take 1 [place] en-codeine 2-27 positive tablet by [facility] (TYLENOL/CO 00:00: mouth DEINE #3) 00 every 4 300-30 mg hours as per tablet needed for Pain. traMADol Yes BRCA gene 50mg Take 1 Sagastume rris (ULTRAM) 50 2-27 mutation tablet by [facility] mg tablet 00:00: positive mouth 00 every 6 hours as needed for Pain. ibuprofen Yes BRCA gene 600mg Take 1 [place] (MOTRIN) 2-06 mutation tablet by alth 600 mg 00:00: positive mouth tablet 00 every 6 hours as needed for Pain. gabapentin Yes BRCA gene 100mg Take 1 [place] (NEURONTIN) 2-06 mutation capsule by [facility] 100 mg 00:00: positive mouth 3 capsule 00 times daily. acetaminoph Yes BRCA gene 650mg Take 2 [place] en 2-06 mutation tablets by [facility] (TYLENOL) 00:00: positive mouth 325 mg 00 every 6 tablet hours as needed for Pain. promethazin 2016-02 Yes BRCA gene 25mg Take 1 Mayen e 1-14 positive tablet by [facility] (PHENERGAN) 00:00: mouth 25 mg 00 every 6 tablet hours as needed for Nausea or Vomiting. raNITIdine 2016-02 Yes 150mg Q.5D Take 1 Lorelei is HCl 150 mg 0-19 tablet by [facility] th tablet 00:00: mouth 2 00 times daily. BOOST oral 2016-02 Yes 1{packa Q.5D Take 1 Sagastume rris liquid 0-16 ge} Package by [facility] 00:00: mouth 2 00 times daily. ondansetron 2016-02 Yes 4mg Take 1 Lorelei is (ZOFRAN) 4 0-12 tablet by [facility] th mg tablet 00:00: mouth 00 every 8 hours as needed for up to 21 doses for Nausea. acetaminoph 2016-02 Yes 2{tbl} Take 2 Sagastume rris en-codeine 0-09 tablets by [facility] (TYLENOL/CO 00:00: mouth DEINE #3) 00 every 4 300-30 mg hours as per tablet needed for Pain. silver 2016-02 Yes QD Apply to Maceo sulfADIAZIN 0-09 affected Heal th E 00:00: area daily (SILVADENE) 00 Apply to 1 % topical purple cream discolored areas of breasts. Tylenol # 3 Tylenol # 3 Yes Jerod one tab [facility] ent Clinics Immunizations Ordered Immunization Filled Immunization Date Status Commen ts Source Name Name FLUCELVAX QUAD PF 2018-02-09 Completed [place] 00:00:00 Taoist Influenza Vaccine 2016-11-[address] [facility] 00:00:00 Procedures Procedure Date / Time Performed Performing Clinician Sourc e XR SPINE SCOLIOSIS 2-3 2020-01-29 14:18:30 Kade Velazquez Taoist VIEWS MRI THORACIC SPINE WO 2019-09-09 09:49:03 Kade Velazquez Taoist CONTRAST MRI CERVICAL SPINE 2019-09-09 09:17:00 Kade Velazquez Taoist CONTRAST MRI LUMBAR SPINE 2019-09-09 09:02:00 Kade Velazquez on Taoist CONTRAST XR SPINE SCOLIOSIS 2-3 2019-09-01 13:19:40 Kade Velazquez Taoist VIEWS Plan of Care Planned Activity Planned Date Details Comments Source Future Scheduled 2021-08-01 Screening for [facility] Test 00:00:00 malignant neoplasm of cervix (procedure) [code = 300547691] Future Scheduled 2019-11-20 IMM Influenza [facility] Test 00:00:00 Seasonal Nov to April (>/= 19 yrs) [code = IMM Influenza Seasonal Nov to April (>/= 19 yrs)] Future Scheduled 2019-10-[address] [facility] - Test 00:00:00 (#1) [code = [facility] INFLUENZA VACCINE (#1)] Future Scheduled 2019-09-20 INFLUENZA VACCINE Azeb alejandre Taoist Test 00:00:00 [code = INFLUENZA VACCINE] Future Scheduled 2017-12-27 Breast Cancer Scrn [facility] s [facility] Test 00:00:00 (Yearly) [code = Breast Cancer Scrn (Yearly)] Future Scheduled 2004 Screening for [facility] Test 00:00:00 malignant neoplasm of cervix (procedure) [code = 377446655] Future Scheduled 1995-12-24 Screening for BIJAN Bahena Abraham es - Test 00:00:00 malignant neoplasm Medical C enter of cervix (procedure) [code = 408024966] Future Scheduled 1995-12-[address] [facility] thodist Test 00:00:00 malignant neoplasm of cervix (procedure) [code = 193598966] Future Scheduled 1990 COVID-19 VACCINE [place] [facility] Test 00:00:00 (#1) [code = COVID-19 VACCINE (#1)] Encounters Start End Encounter Admission Attending Care Care Encounter Source Date/Time Date/Time Type Type Clinicians Facility Department ID 2016-12-11 Inpatient [facility] [id number] H arris 19:13:58 Health 2016-11-22 Inpatient [facility] [id number] H arris 15:22:01 [facility] 2016-11-21 Inpatient [facility] [id number] H arris 01:48:38 [facility] 2016-11-21 Inpatient [facility] [id number] H arris 01:48:30 [facility] 2016-11-20 Inpatient [facility] [id number] H arris 05:55:00 [facility] 2020-01-29 2020-01-29 Outpatient JACKIE [facility] [id number] [place] 00:00:00 00:00:00 KADE [address] 2020-01-29 2020-01-29 Outpatient JACKIE [facility] [id number] [place] 00:00:00 00:00:00 KADE [address] 2019-11-05 2019-11-05 Outpatient [facility] [id number] Memoria 05:21:00 05:21:[address] [facility] 2019-09-26 2019-10-21 Office [place]I [place] [id number] 15:30:31 21:51:55 Visit Luisito Gómez [facility] [id number] [facility] [id number] 2019-10-07 2019-10-07 Outpatient [facility] [id number] [facility] 09:00:00 09:00:[address] [facility] 2019-09-09 2019-09-09 Outpatient JACKIE [facility] [id number] [place] 00:00:00 00:00:00 KADE [address] 2019-09-09 2019-09-09 Outpatient JACKIE [facility] [id number] [place] 00:00:00 00:00:00 KADE [address] 2019-09-09 2019-09-09 Outpatient JACKIE [facility] [id number] [place] 00:00:00 00:00:00 KADE [address] 2019-09-01 2019-09-01 Outpatient JACKIE [facility] [id number] [place] 00:00:00 00:00:00 KADE [address] 2019-09-01 2019-09-01 Outpatient JACKIE [facility] [id number] [place] 00:00:00 00:00:00 KADE [address] 2018-10-04 2018-10-04 Office Moni GENCaro [id number] 09:32:10 10:24:11 Visit Tianna AMBULATOR [id number] Shawna Y [id number] 2018-04-03 2018-04-03 Outpatient [facility] [id number] [place] 00:00:00 00:00:00 Health 2018-03-12 2018-03-12 [facility] [id number] [facility] 13:30:00 13:30:00 [facility] 2018-01-09 2018-01-09 Outpatient [facility] [id number] [place] 00:00:00 00:00:00 Health 2017-12-26 2017-12-26 Outpatient [facility] [id number] [place] 00:00:00 00:00:00 Health 2017-12-25 2017-12-25 Outpatient [facility] [id number] [place] 00:00:00 00:00:00 Health 2017-11-21 2017-11-21 Outpatient [facility] [id number] [place] 12:12:10 12:12:10 Health 2017-11-19 2017-11-19 [facility] [id number] 09:00:00 09:00:00 [facility] 2017-11-16 2017-11-16 Outpatient [facility] [id number] [place] 08:30:23 08:30:23 [facility] 2017-11-12 2017-11-12 [facility] [id number] 14:22:00 14:22:00 [facility] 2017-11-12 2017-11-12 Outpatient [facility] [id number] [place] 00:00:00 00:00:00 [facility] 2017-11-08 2017-11-08 Outpatient [facility] [id number] [place] 00:00:00 00:00:00 [facility] 2017-11-05 2017-11-05 [facility] [id number] 10:03:00 10:03:00 [facility] 2017-10-29 2017-10-29 [facility] [id number] 08:00:00 08:00:00 [facility] 2017-10-11 2017-10-11 Outpatient [facility] [id number] [place] 09:34:54 09:34:54 Health 2017-10-10 2017-10-10 Outpatient [facility] [id number] [place] 00:00:00 00:00:00 [facility] 2017-10-03 2017-10-03 Outpatient [facility] [id number] [place] 00:00:00 00:00:00 [facility] 2017-09-28 2017-09-28 Outpatient [facility] [id number] [place] 06:43:36 06:43:36 [facility] 2017-09-28 2017-09-28 Outpatient [facility] [id number] [place] 00:00:00 00:00:00 [facility] 2017-09-28 2017-09-28 Outpatient [facility] [id number] [place] 00:00:00 00:00:00 [facility] 2017-09-26 2017-09-26 Outpatient [facility] [id number] [place] 13:42:42 13:42:42 [facility] 2017-09-26 2017-09-26 Outpatient [facility] [id number] [place] 00:00:00 00:00:00 [facility] 2017-09-21 2017-09-21 Outpatient [facility] [id number] [place] 00:00:00 00:00:00 [facility] 2017-09-19 2017-09-19 Outpatient [facility] [id number] [place] 14:50:01 14:50:01 [facility] 2017-09-19 2017-09-19 Outpatient [facility] [id number] [place] 13:16:35 13:16:35 [facility] 2017-09-12 2017-09-12 Outpatient [facility] [id number] [place] 00:00:00 00:00:00 [facility] 2017-08-24 2017-08-24 Outpatient [facility] [id number] [place] 09:22:38 09:22:38 [facility] 2017-07-27 2017-07-27 Outpatient [facility] [id number] [place] 10:35:47 10:35:47 [facility] 2017-07-05 2017-07-05 Outpatient [facility] [id number] [place] 12:15:23 12:15:23 [facility] 2017-07-03 2017-07-03 Outpatient [facility] [id number] [place] 00:00:00 00:00:00 [facility] 2017-05-23 2017-05-23 Outpatient [facility] [id number] [place] 13:13:44 13:13:44 [facility] 2017-05-02 2017-05-02 Outpatient [facility] [id number] [place] 00:00:00 00:00:00 [facility] 2017-04-25 2017-04-25 Outpatient [facility] [id number] [place] 09:01:53 09:01:53 [facility] 2017-04-17 2017-04-17 Outpatient [facility] [id number] [place] 06:05:00 06:05:00 [facility] 2017-04-17 2017-04-17 Outpatient [facility] [id number] [place] 00:00:00 00:00:00 [facility] 2017-04-16 2017-04-16 Outpatient [facility] [id number] [place] 00:00:00 00:00:00 [facility] 2017-04-13 2017-04-13 Outpatient [facility] [id number] [place] 09:12:04 09:12:04 [facility] 2017-04-03 2017-04-03 Outpatient [facility] [id number] [place] 00:00:00 00:00:00 [facility] 2017-03-27 2017-03-27 Outpatient [facility] MED [id number] [place] 06:15:00 06:15:00 [facility] 2017-03-27 2017-03-27 Outpatient [facility] [id number] [place] 00:00:00 00:00:00 [facility] 2017-03-19 2017-03-19 Outpatient [facility] [id number] [place] 13:22:16 13:22:16 [facility] 2017-03-19 2017-03-19 Outpatient [facility] [id number] [place] 00:00:00 00:00:00 [facility] 2017-03-12 2017-03-12 Outpatient [facility] [id number] [place] 13:45:55 13:45:55 [facility] 2017-03-09 2017-03-09 Outpatient [facility] [id number] [place] 00:00:00 00:00:00 [facility] 2017-03-08 2017-03-08 Outpatient [facility] [id number] [place] 16:03:22 16:03:22 [facility] 2017-03-08 2017-03-08 Outpatient [facility] [id number] [place] 14:45:05 14:45:05 [facility] 2017-02-23 2017-02-23 Outpatient [facility] [id number] [place] 10:41:02 10:41:02 [facility] 2017-02-23 2017-02-23 Outpatient [facility] [id number] [place] 08:11:53 08:11:53 [facility] 2017-02-23 2017-02-23 Outpatient [facility] [id number] [place] 07:53:43 07:53:43 [facility] 2017-02-23 2017-02-23 Outpatient [facility] MED [id number] [place] 00:00:00 00:00:00 [facility] 2017-02-08 2017-02-08 Outpatient [facility] [id number] [place] 12:32:00 12:32:00 [facility] 2017-01-24 2017-01-24 Outpatient [facility] [id number] [place] 00:00:00 00:00:00 [facility] 2017-01-23 2017-01-23 Outpatient [facility] [id number] [place] 12:16:30 12:16:30 [facility] 2017-01-22 2017-01-22 Outpatient [facility] [id number] [place] 11:30:20 11:30:20 [facility] 2017-01-15 2017-01-15 Outpatient [facility] [id number] [place] 00:00:00 00:00:00 [facility] 2017-01-09 2017-01-09 Outpatient [facility] [id number] [place] 09:09:26 09:09:26 [facility] 2017-01-04 2017-01-04 Outpatient [facility] [id number] [place] 14:36:02 14:36:02 [facility] 2017-01-02 2017-01-02 Outpatient [facility] [id number] [place] 08:36:10 08:36:10 [facility] 2016-12-27 2016-12-27 Outpatient [facility] [id number] [place] 11:33:15 11:33:15 [facility] 2016-12-22 2016-12-22 Outpatient [facility] [id number] [place] 09:02:45 09:02:45 [facility] 2016-12-11 2016-12-11 Outpatient [facility] [id number] [place] 09:01:19 09:01:19 [facility] 2016-12-11 2016-12-11 Inpatient [facility] [id number] [place] 14:16:44 00:00:00 [facility] 2016-12-07 2016-12-07 Outpatient [facility] [id number] [place] 00:00:00 00:00:00 [facility] 2016-12-06 2016-12-06 Outpatient [facility] [id number] [place] 14:40:31 14:40:31 [facility] 2016-12-04 2016-12-04 Outpatient [facility] [id number] [place] 10:31:01 10:31:01 [facility] 2016-11-27 2016-11-27 Outpatient [facility] [id number] [place] 00:00:00 00:00:00 [facility] 2016-11-20 2016-11-20 Outpatient [facility] [id number] [place] 00:00:00 00:00:00 [facility] 2016-11-20 2016-11-20 Outpatient [facility] [id number] [place] 00:00:00 00:00:00 [facility] 2016-11-17 2016-11-17 Outpatient [facility] [id number] [place] 00:00:00 00:00:00 [facility] 2016-10-12 2016-10-12 Outpatient [facility] [id number] [place] 00:00:00 00:00:00 Health 2016-10-10 2016-10-10 Outpatient [facility] [id number] [place] 00:00:00 00:00:00 Health 2016-10-10 2016-10-10 Outpatient [facility] [id number] [place] 00:00:00 00:00:00 Health 2016-10-10 2016-10-10 Outpatient [facility] [id number] [place] 00:00:00 00:00:00 Health 2016-09-15 2016-09-15 Outpatient [facility] [id number] [place] 00:00:00 00:00:00 Health 2016-08-30 2016-08-30 Outpatient [facility] [id number] [place] 09:44:27 09:44:27 Health Results Test Test Test Comments Results Result Source Description Time Comments MRI Thoracic 2019-08 Interface, Radiology [place] [facility] Wo -21 Results Incoming - Method [...] foraminal narrowing MRI Cervical 2019-08 Interface, Radiology [place] [facility] -21 Results Incoming - Method [...] spinal cord is intact.IMPRESSION: Postoperative and degenerative change.[id number] MRI Lumbar 2019-08 Interface, Radiology [facility] Spine Wo -21 Results Incoming - Method [...] the lumbar spine compared to the previous study.[id number] TISSUE EXAM 2018-08 Surgical Pathology Report -01 15:56:0 Case: [id number] Authorizing Provider: Mai Nuñez MD Collected: 08/14/2018 1452 Ordering Location: [facility] Endoscopy Received: 08/15/2018 0833 Services Pathologist: [...] (SEE COMMENT) Signing Pathologist Direct Phone Line: [phone] y signed by Elsy Collier MD on [...] including lymphocytic colitis. Clinical correlation is recommended. [id number] X 4, [id number] abdominal pain, LLQ abdominal pain A. Duodenum [...] evaluated Immunohistochemistry technical testing was performed at [facility], Pathology Laboratory where it was developed [...] for FINAL REPORT PATIENT ID: [id number], Exam:->epigastr [id number] Exam: VIEW AP 16:12:0 ic abdominal Abdominal radiograph 0 painReason for History: Constipation Exam:->constipa Comparison: None. tion, Findings: Nonobstructive unspecified bowel gas pattern. Mild constipation amount retained stool. type Multiple surgical clips. Impression: No acute osseous abnormality Mild amount of retained stool Signed: Luisito Shafer [facility] Verified Date/Time: 04/16/2018 16:12:35
--- OUTSIDE RECORDS SUMMARY | 2020-02-21 19:33 | XMS REPORT | Clinical Summary ---
:1975 Author Organization [employer] Address [address] [place] [address] Care Team Providers Name Role Phone Beverly [...] Encounters Date Type Specialty Care Team Description 02/03/2020 Orders Only Orthopedic Rayo Blancas, Surgery BIRGIT 02/03/2020 Orders Only Orthopedic Rayo Blancas, Spondylolisthe sis of lumbar region (Primary Dx); Surgery BIRGIT Fusion of lumba r spine; Cervical spondy losis with radiculopathy; Fusion of spine , unspecified spinal region 01/29/2020 Office Visit [facility]opedic [facility] Cervical spondy losis with radiculopathy (Primary Dx); Surgery Konrad SShannon Spondylolisthes is of lumbar region; Fusion of lumba r spine; Lumbar pain; Acute thoracic back pain, unspecified back pain laterality 01/29/2020 Travel 01/27/2020 Travel 09/17/2019 Telephone Orthopedic Rayo Blancas Surgery [place] 09/17/2019 Documentation [facility] Back Pain Surgery Konrad S. 09/09/2019 Hospital Encounter Radiology [facility], Cervical spondylosis with radiculopathy; Konrad SShannon Radicular syndr ome of left leg; Fusion [...] lumba r spine (Primary Dx); Surgery Konrad S. Cervical spondy losis with radiculopathy; Radicular syndr ome of left leg; Spondylolisthes is of lumbar region; Fusion of spine , unspecified spinal region; Cervical radicu lopathy; Cervical spondy lolysis; Other spondylos is with radiculopathy, cervical region; Neck pain; Back pain, unsp ecified back location, unspecified back pain laterality, unspecified chronicity 09/01/2019 Travel 08/29/2019 Travel after 02/20/2019 Immunizations Name Administration Dates Next Due FLUCELVAX [...] F USION; Surgeon: Konrad Velazquez; Loc ation: [facility]; rvice: Orthopedics; Laterality: N/A; Medical devices from [...] Assigned at Date Recorded Not on file COVID-19 Exposure Response Date Recorded In the last month, have you been in contact with No / Unsure 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 Shelf Model / Identifier Expiration Serial / Lot Date Tissue [id number] Lasr [id number] Srvc Fee, - [facility] L-Asr (Tissue - Cervical Interbody) - [id number] - [id number] [id number] IMPLANT N/A: [employer] 09/05/2020 [id number] / Implanted: Qty: 1 on 02/08/2018 by Konrad Velazquez at [facility] DEVICES N/A SARAH BORJAS [id number] / [id number] Tissue [id number] Lasr [id number] Srvc Fee, Ts[facility] (Tissue - Cervical Interbody) - [id number] - [id number] [id number] IMPLANT N/A: [employer] 10/23/2020 [id number] / Implanted: Qty: 1 on 02/08/2018 by Konrad Velazquez at [facility] DEVICES N/A SOFAMOR DANEK [id number] / [id number] Tissue [id number] Lasr [id number] Srvc Kendra Lucio- [facility] L-Asr (Tissue - Cervical Interbody) - [id number] - [id number] IPM IMPLANT N/A: [employer] 10/14/2019 [id number] / Implanted: Qty: 1 on 02/08/2018 by Konrad Velazquez at [facility] DEVICES N/A SOFAMOR DANEK [id number] / [id number] Plate [id number] Zevo 55mm 3 Lvl - [id number] IPM IMPLANT N/A: [employer] [id number] / Implanted: Qty: 1 on 02/08/2018 by Konrad Velazquez at [facility] DEVICES N/A SOFAMOR DANEK / Screw [id number] Zevo Kory Sd 3.5mm X 15mm - [id number] IPM IMPLANT N/A: [employer] [id number] / Implanted: Qty: 6 on 02/08/2018 by Konrad Velazquez at [facility] DEVICES N/A SOFAMOR DANEK / Pin Distrctn [place] 12mm Strl - [id number] Surgical N/A: [facility] ULAP SPINE 09/18/2022 [id number] / Implanted: Qty: 3 on 02/08/2018 by Konrad Velazquez at [facility] Implants; N/A / Expanders; [id number] Extenders; Surgical Wires Procedures Procedure Name Priority Date/Time Associated Diagnosis Comme nts XR SPINE SCOLIOSIS Routine 01/29/2020 2:18 Cervical spondylos is Results for this 2-3 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 MRI THORACIC SPINE Routine 09/09/2019 9:49 Cervical [...] procedure are in the results section. 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 Specimen Narrative Performed At This result has an attachment that is no t available. Standing scoliosisPA and lateral viewsof the entirespine are reviewed [facility] today. She has anterior cervical instrumentation in place C4 through C7 with anterior cervical plate construct and interbody c orticocancellous spacers. All instrumentation is in good position wit h good yazdanism of her interbody heights.Well-preserved disc spaces abo ve and below fusion.Looking at her lumbar spine, [...] Images unchanged from prior. Performing Organization Address City/[facility]/ZIP Code Phon e Number [facility] [address] [place] [address] MRI Thoracic Spine Wo Contrast (09/09/2019 9:49 [...] raminal narrowing Procedure Note Interface, Radiology Results Incoming - 09/09/2019 10:08 AM CDT MRI of [...] stenosis or foraminal narrowing Performing Organization Address City/[facility]/ZIP Code Phon e Number [facility] [address] [place] [address] MRI Cervical Spine Wo Contrast (09/09/2019 9:17 [...] intact. IMPRESSION: Postoperative and degenera tive change. [id number] Procedure Note Interface, Radiology Results Incoming - [...] intact. IMPRESSION: Postoperative and degenerat tyler change. [id number] Performing Organization Address City/State/ZIP Code Phon e Number [facility] [address] [place] [address] MRI Lumbar Spine Wo Contrast (09/09/2019 9:02 [...] lumbar spine compared to the previous study. [id number] Procedure Note Hm Interface, Radiology Results - [...] lumbar spine compared to the previous study. [id number] Performing Organization Address City/State/ZIP Code Phon e Number [facility] [address] [place] [address] after 02/20/2019 Insurance Payer Benefit Plan / Subscriber ID Effective Dates Phone Addre ss Type Group [employer] [facility], [facility] [id number] 2017-Present HMO CHOICE 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
--- OUTSIDE RECORDS SUMMARY | 2020-02-21 19:33 | XMS REPORT | Clinical Summary ---
:1975 Author Organization [facility] Address [address] [place] [address] Care Team Providers Name Role Phone Phu Paul MD Primary Care Provider Phu Paul MD Unavailable Allergies No Known Allergies Medications Medication Sig Dispensed Refills Start Date End Date Status tjfkxk-qomwwesx-yigooln Take 36,000 0 Active (CREON) 36,000-114,000- units [...] (#1) 2019 02/09/2018 Results Not on fileafter 02/20/2019 Insurance Payer Benefit Plan / Subscriber ID Effective Phone Address T ype Group Dates MEDICAID - MEDICAID COMM [id number] 2014-Prese Medicaid MEDICAID [facility] HEALTH CHOICE nt Con tracted CARE
--- NOTE | 2020-02-21 21:38 | EDPHYS ---
Physician Documentation [facility] Name: Mildred Caldwell Age: 44 yrs Sex: Female : 1975 Arrival Date: 02/21/2020 Time: 19:32 Bed 23 Private MD: ED Physician Dallas Hogue HPI: 02/20 21:35 This 44 yrs old Female presents to ER via Ambulatory with complaints of cp Blisters. 21:35 The patient's rash thought to be caused by an unknown cause. cp 21:35 The rash is located on the abdomen. Onset: The symptoms/episode began/occurred 3 day(s) cp ago. 21:35 Associated signs and symptoms: Pertinent positives: burning sensation, Pertinent cp negatives: fever. 21:35 Treatment given at home: OTC lotion/cream. cp Historical: - Allergies: 19:51 Codeine; ll1 19:51 Morphine; ll1 - PMHx: 19:51 Chronic pain; Hypertension; ll1 - PSHx: 19:51 Hysterectomy; shoulder x 3, neck/back; ll1 - Immunization history:: Flu vaccine is not up to date. - Social history:: Smoking status: Patient denies any tobacco usage or history of. ROS: 21:35 Skin: Positive for rash, of the abdomen. cp 21:35 Constitutional: Negative for body aches, chills, fever. cp 21:35 Abdomen/GI: Negative for abdominal pain, nausea, vomiting, and diarrhea. 21:35 Back: Negative for radiated pain. 21:35 All other systems are negative. Exam: 21:36 Constitutional: The patient appears in no acute distress, alert, awake, well developed, cp well nourished. 21:36 Skin: rash can be described as erythematous, papular, vesicular, on the right lower cp abdomen. Vital Signs: 19:49 BP 150 / 79; Pulse 85; Resp 17; Temp 97.9; Pulse Ox 100% ; Weight 72.57 kg; Height 5 ll1 ft. 6 in. (167.64 cm); Pain 0/10; 19:49 Body Mass Index 25.82 (72.57 kg, 167.64 cm) ll1 MDM: 21:19 Patient medically screened. cp 21:37 Data reviewed: vital signs, nurses notes. cp 21:37 Counseling: I had a detailed discussion with the patient and/or guardian regarding: the cp historical points, exam findings, and any diagnostic results supporting the discharge/admit diagnosis, to return to the emergency department if symptoms worsen or persist or if there are any questions or concerns that arise at home. Administered Medications: No medications were administered Disposition: 21:50 Chart complete. cp 02/21 07:19 Co-signature as Attending Physician, Dallas Hogue MD I agree with the assessment and [facility] plan of care. Disposition: 02/21/20 21:37 Discharged to Home. Impression: Other local infections of skin and subcutaneous tissue. - Condition is Stable. - Discharge Instructions: Staphylococcal Infection. - Prescriptions for Bactroban 2 % Topical Ointment - Apply to affected area 1 application by TOPICAL route every 12 hours; 15 gram. Bactrim DS 800- 160 mg Oral Tablet - take 1 tablet by ORAL route every 12 hours for 7 days; 14 tablet. - Medication Reconciliation Form, Thank You Letter, Antibiotic Education, Prescription Opioid Use form. - Follow up: Private Physician; When: 2 - 3 days; Reason: Worsening of condition. - Problem is new. - Symptoms are unchanged. Signatures: Sana Pagan RN RN lp1 Yan Taylor PA PA Dallas Hogue MD MD tw4 Faheem Demarco RN RN ll1 Corrections: (The following items were deleted from the chart) 02/20 21:45 21:37 02/21/2020 21:37 Discharged to Home. Impression: Other local infections of skin lp1 and subcutaneous tissue. Condition is Stable. Forms are Medication Reconciliation Form, Thank You Letter, Antibiotic Education, Prescription Opioid Use. Follow up: Private Physician; When: 2 - 3 days; Reason: Worsening of condition. Problem is new. Symptoms are unchanged. cp
--- NOTE | 2020-02-21 21:38 | ER ---
Nurse's Notes [facility] Name: Mildred Caldwell Age: 44 yrs Sex: Female : 1975 Arrival Date: 02/21/2020 Time: 19:32 Bed 23 Private MD: Diagnosis: Other local infections of skin and subcutaneous tissue Presentation: 02/20 19:49 Chief complaint: Patient states: Small ring of blister-like rash to R abdomen for 3 ll1 days. Doesn't itch a lot. Painful needle pains to the area. Coronavirus screen: Client denies travel out of the [place] in the last 14 days. At this time, the client does not indicate any symptoms associated with coronavirus-19. Ebola Screen: Patient denies travel to an Ebola-affected area in the 21 days before illness onset. Initial Sepsis Screen: Does the patient meet any 2 criteria? No. Patient's initial sepsis screen is negative. Does the patient have a suspected source of infection? Yes: Skin breakdown/wound. Risk Assessment: Do you want to hurt yourself or someone else? Patient reports no desire to harm self or others. Onset of symptoms was February 19, 2020. 19:49 Method Of Arrival: Ambulatory ll1 19:49 Acuity: JENNIFER 4 ll1 Triage Assessment: 19:49 General: Appears in no apparent distress. Behavior is calm, cooperative, appropriate ll1 for age. Pain: Denies pain. Derm: Rash noted that is raised, vesicular, on R abdomen Reports circular rash to R side of abdomen for 3 days. Small blister-like rash. Historical: - Allergies: 19:51 Codeine; ll1 19:51 Morphine; ll1 - PMHx: 19:51 Chronic pain; Hypertension; ll1 - PSHx: 19:51 Hysterectomy; shoulder x 3, neck/back; ll1 - Immunization history:: Flu vaccine is not up to date. - Social history:: Smoking status: Patient denies any tobacco usage or history of. Screenin:37 Abuse screen: Denies threats or abuse. Denies injuries from another. Nutritional lp1 screening: No deficits noted. Tuberculosis screening: No symptoms or risk factors identified. Fall Risk None identified. Assessment: 21:10 General: Appears in no apparent distress. Behavior is calm, cooperative, appropriate lp1 for age. Pain: Complains of pain in right lower quadrant. Neuro: No deficits noted. Cardiovascular: No deficits noted. Respiratory: Respiratory effort is even, unlabored. GI: No signs and/or symptoms were reported involving the gastrointestinal system. : No signs and/or symptoms were reported regarding the genitourinary system. EENT: No signs and/or symptoms were reported regarding the EENT system. Derm: Rash noted that is red, raised, on right lower quadrant bullae like. Musculoskeletal: No deficits noted. Vital Signs: 19:49 BP 150 / 79; Pulse 85; Resp 17; Temp 97.9; Pulse Ox 100% ; Weight 72.57 kg; Height 5 ll1 ft. 6 in. (167.64 cm); Pain 0/10; 19:49 Body Mass Index 25.82 (72.57 kg, 167.64 cm) ll1 ED Course: 19:32 Patient arrived in ED. rg4 19:51 Triage completed. ll1 19:52 Arm band placed on. ll1 21:13 Yan Taylor PA is PHCP. cp 21:13 Dallas Hogue MD is Attending Physician. cp 21:24 Sana Pagan, RN is Primary Nurse. lp1 21:37 Patient has correct armband on for positive identification. lp1 21:37 No provider procedures requiring assistance completed. Patient did not have IV access lp1 during this emergency room visit. Administered Medications: No medications were administered Outcome: 21:37 Discharge ordered by MD. cp 21:44 Discharged to home ambulatory. lp1 21:44 Condition: good 21:44 Discharge instructions given to patient, Instructed on discharge instructions, follow up and referral plans. medication usage, Demonstrated understanding of instructions, follow-up care, medications, Prescriptions given X 2. 21:45 Patient left the ED. lp1 Signatures: Sana Pagan RN RN lp1 Yan Taylor PA PA cp Garcia, Rubi rg4 Faheem Demarco RN RN ll1 Corrections: (The following items were deleted from the chart) 20:36 20:35 Pain: Denies pain. ll1 ll1 20:36 20:35 General: Appears in no apparent distress. Behavior is calm, cooperative, ll1 appropriate for age, ll1 20:36 20:35 Derm: Rash noted that is raised, vesicular, on R abdomen Reports circular rash to ll1 R side of abdomen for 3 days. Small blister-like rash. ll1
[2020-02-21 22:25] VITALS: BP 150/79; TEMP 97.9; O2SAT 100
== END 2020-02-21 21:45 | disposition home or self-care (01) ==
LOC: ER 19:30
DX: L08.89 Other specified local infections of the skin and subcutaneous tissue (principal); I10 Essential (primary) hypertension; Z88.5 Allergy status to narcotic agent
CPT/HCPCS: 99282

== ENCOUNTER 2020-04-22 12:20 | Emergency (ER) | payer OTHER ==
--- OUTSIDE RECORDS SUMMARY | 2020-04-22 12:24 | XMS REPORT | Continuity of Care Document ---
:1975 Author Organization [facility] t Address [address] [place] [address] Care Team Providers Name Role Phone Phu Paul MD Primary Care Physician Popeye Coppola DPM Attending Clinician Doctor Unassigned, Name Attending Clinician Unavailable Pob, Lab Main Attending Clinician Unavailable Only, Test Attending Clinician Unavailable LUIS MIGUEL Attending Clinician Unavailable Tommy Velazquez Attending Clinician Yonny GENAO Attending Clinician Unavailable Phu SUAREZ Attending Clinician JESUS MANUEL Attending Clinician Unavailable Shawna Montenegro PA-C Attending Clinician Navjot NUÑEZ Attending Clinician Unavailable JANETH Attending Clinician Unavailable Popeye Coppola DPM Admitting Clinician Navjot NUÑEZ Admitting Clinician Unavailable Payers Payer Name Policy Type Policy Effective Date Expiration Date Sour ce Number [facility] [id number] 2017 [facility] 00:00:00 [facility] [id number] O Problems Condition Condition Condition Status Onset Resolution Last Treating Co mments Source Name Details Category Date Date Treatment Clinician Date Cervical Cervical Disease Active 2017-02 [place] spondylosi spondylosi 2- Me thodi s with s with 00:00: st radiculopa radiculopa 00 thy thy History of History of Disease Active Overview : Faheem colonoscop colonoscop 10-01 [facility] y 09/2017 y 09/2017 00:00: g of this 00 note might be different from the original. Recommend repeating colonosco py in 10yrs and forgo annual FIT in the interim. Mood Mood Disease Active Faheem swings swings 7 Health 00:00: 00 BRCA gene BRCA gene Disease Active Overview: Faheem mutation mutation 03-12 [facility] positive positive 00:00: g of this 00 note might be different from the original. 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 08/01/2016 see in vp digital marketing social [facility] and c[facility] onc clinic. Intereste d in RRBSO. Plan to do after mastectom y/recontr uction. CA-125 ordered. TVUS scheduled 08/18/16. Plan for [id number] surveilla nce until risk reducing BSO. 03/27/17: exam under anesthesi a, diagnosti c and operative laparosco py, total laparosco pic hysterect jac, bilateral salpingo- oophorect jac, pelvic washings. (Anthony)03/22 06/06: tumor board: pathology notable for negative washings, benign adnexa, and uterus. Plan for annual WWE. Lumbar Lumbar Problem Active [facility] [place] [facility], Pain, Diagnosis Active [facility] [...] shoulder, l left left Outpati ent Clinics Mid back Mid back Problem Active [facility] [place] [facility] Allergies, Adverse Reactions, Alerts Allergy Allergy Status Severity Reaction(s) Onset Inactive Treating Comm ents Source Name Type Date Date Clinician No Known DA Active U 2019-02 [facility]ie 03-27 [facility] Adhesive Propensi Active Dermatitis 2017-02 Blistered Pfeifer Tape-Renée ty to 04-11 when Methodi icones adverse 00:00: abdominal st reaction 00 bandage s to left on drug for a week. Family History Family Member Diagnosis Comments Start Date Stop Date Source Natural father Cancer [facility] Natural father Cancer [facility] Natural mother Arthritis [facility] Natural mother Diabetes [facility] Natural mother Diabetes [facility] Natural brother Diabetes [facility] ethodist Social History Social Habit Start Date Stop Date Quantity Comments Source Sex Assigned At [facility] History [facility] Meth odist Alcohol Std Drinks History [facility] Meth odist Alcohol Binge Tobacco use and 2018-08-16 2018-08-16 Never used [facility] alth exposure 00:00:00 00:00:00 Alcohol intake 2018-08-14 2018-08-14 [facility]00 [facility] Center (finding) History [facility] 2018-01-28 2018-01-28 1 Pfe[facility] Meth odist Alcohol Frequency 00:00:00 00:00:00 Alcohol Comment 2015-07-22 2015-07-22 1 per 3 months [facility] Smoking Status Start Date Stop Date Source Never smoker [facility] Medications Ordered Filled Start Stop Current Ordering Indication Dosage Frequency Signature Comments Components Source Medication Medication Date Date Medication? Clinician (SIG) Name Name ibuprofen Yes 600mg Q6H Take [address]et ston (ADVIL,MOTR 8-22 mg by Kathiai IN) 600 MG 10:03: mouth st tablet 26 every 6 (six) hours as needed for mild pain. lipase-prot Yes 86474M{ Q.[id number] Take [facility] ease-amylas 6-26 lipase} [id number] 36,000 [facility] - e (CREON) 16:25: 3D [...] Yes Abdominal Add H arris e glycol 09-19 bloating [facility] (GOLYTELY) 00:00: drinking 236-22.74-6 00 water to .74 -5.86 the fill gram oral michael (4 solution liters) and shake. Drink as directed by your doctor.. venlafaxine Yes Mood swings 37.5mg QD Take 1 [facility] (EFFEXOR 7-06 capsule by [facility] XR) 37.5 mg 00:00: mouth extended 00 daily. release capsule acetaminoph Yes BRCA gene 1{tbl} Take 1 [place] en-codeine 2-27 positive tablet by [facility] (TYLENOL/CO 00:00: mouth DEINE #3) 00 every 4 300-30 mg hours as per tablet needed for Pain. traMADol Yes BRCA gene 50mg Take 1 Sag[facility] (ULTRAM) 50 2-27 mutation tablet by [facility] mg tablet 00:00: positive mouth 00 every 6 hours as needed for Pain. ibuprofen Yes BRCA gene 600mg Take 1 [place] (MOTRIN) 2-06 mutation tablet by He alth 600 mg 00:00: positive mouth tablet 00 every 6 hours as needed for Pain. gabapentin Yes BRCA gene 100mg Take 1 [place] (NEURONTIN) 2-06 mutation capsule by [facility] 100 mg 00:00: positive mouth 3 capsule 00 times daily. acetaminoph Yes BRCA gene 650mg Take 2 [place] en 2-06 [facility] (TY[facility] 00:00: positive mouth 325 mg 00 every 6 tablet hours as needed for Pain. promethazin 2016-02 Yes BRCA gene 25mg Take 1 [place] e 1-14 positive tablet by [facility] (PHENERGAN) 00:00: mouth 25 mg 00 every 6 tablet hours as needed for Nausea or Vomiting. raNITIdine 2016-02 Yes 150mg Q.5D Take 1 Lorelei is HCl 150 mg 0-19 tablet by Heal th tablet 00:00: mouth 2 00 times daily. BOOST oral 2016-02 Yes 1{packa Q.5D Take 1 Sagast[facility]ris liquid 0-16 ge} Package by [facility] 00:00: mouth 2 00 times daily. ondansetron 2016-02 Yes 4mg Take 1 Lorelei is (ZOFRAN) 4 0-12 tablet by [facility] th mg tablet 00:00: mouth 00 every 8 hours as needed for up to 21 doses for Nausea. acetaminoph 2016-02 Yes 2{tbl} Take 2 Sagast[facility]ris en-codeine 0-09 tablets by [facility] (TYLENOL/CO 00:00: mouth DEINE #3) 00 every 4 300-30 mg hours as per tablet needed for Pain. silver 2016-02 Yes QD Apply to [place] sulfADIAZIN 0-09 affected Heal [facility] E 00:00: area daily (SILVADENE) 00 Apply to 1 % topical purple cream discolored areas of breasts. Tylenol # 3 Tylenol # 3 Yes Jerod one tab [facility] Immunizations Ordered Immunization Filled Immunization Date Status Commen ts Source Name Name FLUCELVAX QUAD PF 2018-02-09 Completed Pfeifer 00:00:00 Sikh Influenza Vaccine 2016-11-25 Completed [facility] 00:00:00 Procedures Procedure Date / Time Performed Performing Clinician Sourc e XRAY Spine Thoracic 2020-03-08 00:00:00 [facility] 4+ views [id number] Spine lumbar wo 2020-03-08 00:00:00 [facility] contrast [id number] Physicians MRI Spine thoracic wo 2020-03-08 00:00:00 [facility] contrast [id number] Physicians XR SPINE SCOLIOSIS 2020-01-29 14:18:30 Kade Velazquez Sikh 2-3 VIEWS MRI THORACIC SPINE WO 2019-09-09 09:49:03 Kade Velazquez Sikh CONTRAST MRI CERVICAL SPINE WO 2019-09-09 09:17:00 Kade Velazquez Sikh CONTRAST MRI LUMBAR SPINE WO 2019-09-09 09:02:00 Kade Velazquez on Sikh CONTRAST XR SPINE SCOLIOSIS 2019-09-01 13:19:40 Kade Velazquez Sikh 2-3 VIEWS Plan of Care Planned Activity Planned Date Details Comments Source Future Scheduled 2021-08-01 Screening for [facility] 00:00:00 malignant neoplasm of cervix (procedure) [code = 160782941] Future Scheduled 2019-11-20 IMM Influenza [facility] Test 00:00:00 Seasonal Nov to April (>/= 19 yrs) [code = IMM Influenza Seasonal Nov to April (>/= 19 yrs)] Future Scheduled 2019-10-[address] [facility] - Test 00:00:00 (#1) [code = [facility] INFLUENZA VACCINE (#1)] Future Scheduled 2019-09-20 INFLUENZA VACCINE [place] Test 00:00:00 [code = INFLUENZA VACCINE] Future Scheduled 2017-12-27 Breast Cancer [facility] Test 00:00:00 (Yearly) [code = Breast Cancer Scrn (Yearly)] Future Scheduled 2004 Scre[facility] for [facility] Test 00:00:00 malignant neoplasm of cervix (procedure) [code = 569629529] Future Scheduled 1995-12-[address] [facility] - Test 00:00:00 malignant neoplasm Medical C enter of cervix (procedure) [code = 007567834] Future Scheduled 1995-12-24 Screening for [facility]odist Test 00:00:00 malignant neoplasm of cervix (procedure) [code = 285130568] Future Scheduled 1992 Hepatitis C Pfeifer Met hodist Test 00:00:00 screening (procedure) [code = 551053850] Future Scheduled 1990 COVID-19 VACCINE (1 [place] Test 00:00:00 of 2) [code = COVID-19 VACCINE (1 of 2)] Encounters Start End Encounter Admission Attending Care Care Encounter Source Date/Time Date/Time Type Type Clinicians Facility Department ID 2016-12-11 Inpatient [facility] [id number] H arris 19:13:58 Health 2016-11-22 Inpatient [facility] [id number] H arris 15:22:01 [facility] 2016-11-21 Inpatient [facility] [id number] H arris 01:48:38 [facility] 2016-11-21 Inpatient [facility] [id number] H arris 01:48:30 [facility] 2016-11-20 [facility] [id number] H arris 05:55:00 [facility] 2020-03-16 2020-03-16 [facility] [id number] 06:27:00 10:38:00 Encounter Otoniel Flaherty [id number] [place] [id number] [facility] [id number] [place] [id number] 2020-03-16 2020-03-16 Orders Doctor BRYAN [id number] 00:00:00 00:00:00 Only Unassigned, KAIT [id number] [place] [id number] 2020-03-15 2020-03-15 [facility] [id number] 12:45:00 23:59:00 Encounter Otoniel Flaherty [id number] [place] [id number] [place] [id number] 2020-03-15 2020-03-15 [place] Supervisor Sony, [facility] [id number] 13:22:26 13:37:26 Visit Lab Main Krystina [id number] [place] [id number] Professio [id number] nal [address] [place] [address] 2020-03-15 2020-03-15 Laboratory Only, [facility] [id number] 13:19:31 13:34:31 Only Test [place] [id number] [place] [id number] [place] [id number] 2020-03-08 2020-03-08 ANTON Alex PM&R [facility] [id number] [facility] 08:30:00 08:30:00 t; Albina VILLAFUERTE [place] [facility]ici M.D. ans 2020-01-29 2020-01-29 Outpatient [facility] [id number] Pfeifer 00:00:00 00:00:00 KADE [address] 2020-01-29 2020-01-29 Outpatient [facility] [id number] Pfeifer 00:00:00 00:00:00 KADE [address] 2019-11-05 2019-11-05 Outpatient [facility] [id number] Memoria 05:21:00 05:21:00 [facility] 2019-09-26 2019-10-21 Office [place] [id number] 15:30:31 21:51:55 Visit [facility] [id number] [place] [id number] 2019-10-07 2019-10-07 Outpatient [facility] [id number] Memoria 09:00:00 09:00:00 petros [facility] 2019-09-09 2019-09-09 Outpatient [facility] [id number] Pfeifer 00:00:00 00:00:00 KADE [address] 2019-09-09 2019-09-09 Outpatient [facility] [id number] Pfeifer 00:00:00 00:00:00 KADE [address] 2019-09-09 2019-09-09 Outpatient [facility] [id number] Pfeifer 00:00:00 00:00:00 KADE [address] 2019-09-01 2019-09-01 Outpatient [facility] [id number] Pfeifer 00:00:00 00:00:00 KADE [address] 2019-09-01 2019-09-01 Outpatient [facility] [id number] Pfeifer 00:00:00 00:00:00 KADE [address] 2019-01-01 2019-01-01 Appointmen ANTON KEN [id number] Univers 14:00:00 14:00:00 t; BREANA KEN M.D. ity of [place] TOUSSAINT M.D. ans 2018-10-04 2018-10-04 Office CELE Montenegro [id number] 09:32:10 10:24:11 Visit Tianna AMBULATOR [id number] Shawna Gómez [id number] [id number] 2018-07-17 2018-07-[facility] CIELO FOWLER, [facility] [id number] Univers 11:00:00 11:00:00 t; Albina FOWLER M.D. [place] [facility] 2018-04-03 2018-04-03 Outpatient [facility] [id number] [place] 00:00:00 00:00:00 [facility] 2018-03-12 2018-03-12 [facility] [id number] 13:30:00 13:30:00 [facility] 2018-01-09 2018-01-09 Outpatient [facility] [id number] [place] 00:00:00 00:00:00 Health 2017-12-26 2017-12-26 Outpatient [facility] [id number] [place] 00:00:00 00:00:00 [facility] 2017-12-25 2017-12-25 Outpatient [facility] [id number] [place] 00:00:00 00:00:00 Health 2017-11-21 2017-11-21 Outpatient [facility] [id number] [place] 12:12:10 12:12:10 [facility] 2017-11-19 2017-11-19 [facility] [id number] 09:00:00 09:00:00 [facility] ent Clinics 2017-11-16 2017-11-16 Outpatient [facility] [id number] [place] 08:30:23 08:30:23 Health 2017-11-12 2017-11-12 [facility] [id number] 14:22:00 14:22:00 [facility] ent [facility] 2017-11-12 2017-11-12 Outpatient [facility] [id number] [place] 00:00:00 00:00:00 [facility] 2017-11-08 2017-11-08 Outpatient [facility] [id number] [place] 00:00:00 00:00:00 [facility] 2017-11-05 2017-11-05 [facility] [id number] 10:03:00 10:03:00 [facility] ent [facility] 2017-10-29 2017-10-29 [facility] [id number] 08:00:00 08:00:00 [facility] 2017-10-11 2017-10-11 Outpatient [facility] [id number] [place] 09:34:54 09:34:54 Health 2017-10-10 2017-10-10 Outpatient [facility] [id number] [place] 00:00:00 00:00:00 [facility] 2017-10-03 2017-10-03 Outpatient [facility] [id number] [place] 00:00:00 00:00:00 [facility] 2017-09-28 2017-09-28 Outpatient [facility] [id number] [place] 06:43:36 06:43:36 [facility] 2017-09-28 2017-09-28 Outpatient [facility] [id number] [place] 00:00:00 00:00:00 [facility] 2017-09-28 2017-09-28 Outpatient [facility] [id number] [place] 00:00:00 00:00:00 [facility] 2017-09-26 2017-09-26 Outpatient [facility] [id number] [place] 13:42:42 13:42:42 Health 2017-09-26 2017-09-26 Outpatient [facility] [id number] [place] 00:00:00 00:00:00 [facility] 2017-09-21 2017-09-21 Outpatient [facility] [id number] [place] 00:00:00 00:00:00 [facility] 2017-09-19 2017-09-19 Outpatient [facility] [id number] [place] 14:50:01 14:50:01 Health 2017-09-19 2017-09-19 Outpatient [facility] [id number] [place] 13:16:35 13:16:35 [facility] 2017-09-12 2017-09-12 Outpatient [facility] [id number] [place] 00:00:00 00:00:00 [facility] 2017-08-24 2017-08-24 Outpatient [facility] [id number] [place] 09:22:38 09:22:38 [facility] 2017-07-27 2017-07-27 Outpatient [facility] [id number] [place] 10:35:47 10:35:47 [facility] 2017-07-05 2017-07-05 Outpatient [facility] [id number] [place] 12:15:23 12:15:23 [facility] 2017-07-03 2017-07-03 Outpatient [facility] [id number] [place] 00:00:00 00:00:00 [facility] 2017-05-23 2017-05-23 Outpatient [facility] [id number] [place] 13:13:44 13:13:44 [facility] 2017-05-02 2017-05-02 Outpatient [facility] [id number] [place] 00:00:00 00:00:00 [facility] 2017-04-25 2017-04-25 Outpatient [facility] [id number] [place] 09:01:53 09:01:53 [facility] 2017-04-17 2017-04-17 [facility] [id number] [place] 06:05:00 06:05:00 [facility] 2017-04-17 2017-04-17 Outpatient [facility] [id number] [place] 00:00:00 00:00:00 [facility] 2017-04-16 2017-04-16 Outpatient [facility] [id number] [place] 00:00:00 00:00:00 [facility] 2017-04-13 2017-04-13 Outpatient [facility] [id number] [place] 09:12:04 09:12:04 [facility] 2017-04-03 2017-04-03 Outpatient [facility] [id number] [place] 00:00:00 00:00:00 [facility] 2017-03-27 2017-03-27 Outpatient [facility] [id number] [place] 06:15:00 06:15:00 [facility] 2017-03-27 2017-03-27 Outpatient [facility] [id number] [place] 00:00:00 00:00:00 [facility] 2017-03-19 2017-03-19 Outpatient [facility] [id number] [place] 13:22:16 13:22:16 [facility] 2017-03-19 2017-03-19 Outpatient [facility] [id number] [place] 00:00:00 00:00:00 [facility] 2017-03-12 2017-03-12 Outpatient [facility] [id number] [place] 13:45:55 13:45:55 [facility] 2017-03-09 2017-03-09 Outpatient [facility] [id number] [place] 00:00:00 00:00:00 [facility] 2017-03-08 2017-03-08 Outpatient [facility] [id number] [place] 16:03:22 16:03:22 [facility] 2017-03-08 2017-03-08 Outpatient [facility] [id number] [place] 14:45:05 14:45:05 [facility] 2017-02-23 2017-02-23 Outpatient [facility] [id number] [place] 10:41:02 10:41:02 [facility] 2017-02-23 2017-02-23 Outpatient [facility] [id number] [place] 08:11:53 08:11:53 [facility] 2017-02-23 2017-02-23 Outpatient [facility] [id number] May[place] 07:53:43 07:53:43 [facility] 2017-02-23 2017-02-23 Outpatient [facility] [id number] May[place] 00:00:00 00:00:00 [facility] 2017-02-08 2017-02-08 Outpatient [facility] [id number] [place] 12:32:00 12:32:00 [facility] 2017-01-24 2017-01-24 Outpatient [facility] [id number] [place] 00:00:00 00:00:00 [facility] 2017-01-23 2017-01-23 Outpatient [facility] [id number] [place] 12:16:30 12:16:30 [facility] 2017-01-22 2017-01-22 Outpatient [facility] [id number] [place] 11:30:20 11:30:20 [facility] 2017-01-15 2017-01-15 Outpatient [facility] [id number] [place] 00:00:00 00:00:00 [facility] 2017-01-09 2017-01-09 Outpatient [facility] [id number] [place] 09:09:26 09:09:26 [facility] 2017-01-04 2017-01-04 Outpatient [facility] [id number] [place] 14:36:02 14:36:02 [facility] 2017-01-02 2017-01-02 Outpatient [facility] [id number] [place] 08:36:10 08:36:10 [facility] 2016-12-27 2016-12-27 Outpatient [facility] [id number] [place] 11:33:15 11:33:15 [facility] 2016-12-22 2016-12-22 Outpatient [facility] [id number] [place] 09:02:45 09:02:45 [facility] 2016-12-11 2016-12-11 Outpatient [facility] [id number] [place] 09:01:19 09:01:19 [facility] 2016-12-11 2016-12-11 [facility] [id number] [place] 14:16:44 00:00:00 [facility] 2016-12-07 2016-12-07 Outpatient [facility] [id number] [place] 00:00:00 00:00:00 [facility] 2016-12-06 2016-12-06 Outpatient [facility] [id number] [place] 14:40:31 14:40:31 [facility] 2016-12-04 2016-12-04 Outpatient [facility] [id number] [place] 10:31:01 10:31:01 [facility] 2016-11-27 2016-11-27 Outpatient [facility] [id number] [place] 00:00:00 00:00:00 [facility] 2016-11-20 2016-11-20 Outpatient [facility] [id number] [place] 00:00:00 00:00:00 [facility] 2016-11-20 2016-11-20 Outpatient [facility] [id number] [place] 00:00:00 00:00:00 [facility] 2016-11-17 2016-11-17 Outpatient [facility] [id number] [place] 00:00:00 00:00:00 [facility] 2016-10-12 2016-10-12 Outpatient [facility] [id number] [place] 00:00:00 00:00:00 [facility] 2016-10-10 2016-10-10 Outpatient [facility] [id number] [place] 00:00:00 00:00:00 [facility] 2016-10-10 2016-10-10 Outpatient [facility] [id number] [place] 00:00:00 00:00:00 [facility] 2016-10-10 2016-10-10 Outpatient [facility] [id number] [place] 00:00:00 00:00:00 [facility] 2016-09-15 2016-09-15 Outpatient [facility] [id number] [place] 00:00:00 00:00:00 [facility] 2016-08-30 2016-08-30 Outpatient [facility] [id number] [place] 09:44:27 09:44:27 Health Results Test Test Test Results Result Source Description Time Comments Comments MRI Spine 2020-03- EXAM: Spine Thoracic wo [facility] wo 05 contrast MRIDATE: 03/26/2020 [place] contrast [id number] 14:45:00 14:47 CSTINDICATION: Physicians -Mid back painCOMPARISON: X-ray of the thoracic spine 03/26/2020TECHNIQUE: Multiplanar multisequence images of the thoracic spine were obtainedwithout contrast administration.DISCUSSION: The height and the structure of the thoracic vertebral bodies arewell-maintained. No bone marrow signal abnormality.Lateralizing to the right osteophyte disc complex at T3-T4 with subtle righthemicord flattening. No cord signal abnormality or spinal canal stenosis atthis level.The other levels examined are unremarkable.No foraminal narrowing or discrete nerve root impingement.The paraspinal soft tissues are unremarkable.IMPRESSION: Shallow right paracentral at T3-T4 deforming the right hemicordwith no canal stenosis or compressive myelopathy--Read by: Isamar Pittman MDDictated Date/time: 03/26/20 16:05Electronically Signed by: Isamar Pittman MD 03/26/2115:11FINAL REPORT XRAY Spine 2020-03- EXAM: XR THORACIC SPINE 2 [facility] 4+ 05 VIEWSDATE: 03/26/2020 13:31 [place] views [id number] 13:45:00 CSTINDICATION: - M54.9 Physicians Dorsalgia, unspecifiedCOMPARISON: None.TECHNIQUE: AP and lateral radiographs of the thoracic spineFINDINGS: Vertebral body heights, disc heights and alignment are preserved. Nodegenerative disk disease or osteoarthritis.Incidental note of ACDF spanning the lower cervical levels.No soft tissue abnormality is identified.IMPRESSION: No acute abnormality. Multilevel mild degenerative changes.--Read by: Diane Rose MDDictated Date/time: 03/26/20 19:27Electronically Signed by: Diane Rose MD 03/26/2118:28FINAL REPORT CT Spine lumbar 2020-03- EXAM: [facility] LUMBAR SPINE [facility] contrast 05 WITHOUT CONTRASTDATE: [place] [id number] 13:31:00 03/26/2020 13:35 Physicians CSTINDICATION: M54.5 Low back painCOMPARISON: None.TECHNIQUE: Volumetric CT of the lumbar spine is acquired without contrast.Axial, coronal and sagittal images are provided.IV contrast: None.DLP: 1039.1 mGy-cmFINDINGS:At the time the study was initially sent to the PACS system the bone algorithmimages had been omitted. Also, angled computer reformatted images wererequested to cover the lowest 2 intervertebral disc spaces as these are offaxis on axial images otherwise due to the accentuated lordotic curvaturepresent. Hence the examination is being completed on March 29, 2020 and thefinal interpretation provided on this date.Correlation with the patient's conventional radiographs obtained the same dayindicates the individual has 12 rib bearing vertebra. Therefore, transitionalanatomy is present. There are 5 lumbar-type nonrib-bearing vertebrae. The 1stof these, however, demonstrates elongation of the transverse processes whichare not fused (L1). A transitional segment is seen at the lumbosacral junctionwith at least partial fusion of its lateral masses with the sacrum but arelatively well-formed intervertebral disc space.Changes from posterior decompression and instrumented fusion are seen at L5 tothe sacrum inclusive of the intervening transitional segment.Bilateral laminectomy changes are seen at the transitional segment below L5.The hardware demonstrates satisfactory alignment without yefri-hardware fractureor lucency to indicate hardware failure. Extensive streak artifact caused bythe hardware limits assessment of the spinal canal at the lowest 2 segmentallevels.Spinal canal and neural foramina:* T12-L1: No spinal canal or neural foraminal narrowing.* L1-L2: No spinal canal or neural foraminal narrowing.* L2-L3: No spinal canal or neural foraminal narrowing.* L3-L4: Loss of intervertebral disc height. Diffuse bulge of the posteriordisc annulus with superimposed left foraminal disc protrusion which producesminimal foraminal encroachment but extends medially to the subarticular zonecausing stenosis with potential for impingement on the traversing L4 nerveroot.* L4-L5: No high-grade spinal canal stenosis although assessment is limited bystreak artifact. No neural foraminal stenosis.* L5-T: No high-grade spinal canal stenosis although assessment is limited bystreak artifact. No neural foraminal stenosis.* T-S1:Bilateral laminectomy changes. Extremely limited assessment of thespinal canal and neural foramina due to streak artifact.Soft tissues: The patient is status post hysterectomy. 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 Changes of L5-Sacal posterior instrumented fusion and posteriordecompression with bilateral laminectomies at the transitional vertebra. Noevidence of fracture or hardware failure.2. Limited assessment of the lower lumbar spinal canal and neural foramina dueto streak artifact from hardware.3. Mild spinal canal narrowing at L3-L4 with left greater than rightsubarticular zone encroachment as a consequence of a small left foraminal discprotrusion which may impinge upon the traversing L4 root within thesubarticular zone.--This report was dictated by a Cashier Checker/Fellow/Physician [employer]. Ihave personallyreviewed the images as well as the interpretation and agree with the findings.Read by: Linus Argueta MD Resident/Fellow/PhysicianA ssistant: Linus Argueta MDDictated Date/time: 03/26/20 14:06Electronically Signed by: Vinh Ohara MD 03/29/2112:46FINAL REPORT MRI Spine thoracic wo contrast [id number] 2020-03-26 13:30:00 Test Item Value Reference Range Interpretation Comme nts Spine thoracic wo contrast MRI (test code = Cancel Reason: Duplicat e Order Spine thoracic wo contrast MRI) [facility] Thoracic Spine Wo [id number] 10:05:41 Hm Interface, Radiology Results Incoming - 09/09/2019 10:08 AM CDTMRI of the thoracic spine without contrastHistory: [...] spine without significant canal stenosis or foraminal narrowingCHRISTUS [facility] Contrast 2019-09-09 09:35:26Hm Interface, Radiology Results Incoming - 09/09/2019 9:38 AM CDTEXAMINATION: MRI CERVICAL SPINE WO CONTRASTCOMPARISON: December 24, 2017.CLINICAL HISTORY: M47.22 Other spondylosis with radiculopathy cervical region, M54.10 Radiculopathy site unspecified, Neck pain initial examCOMMENTS: Sagittal and axial MR images of the cervical spine were obtained.FINDINGS: C2- C3 shows progressive minimal right facet degenerative change.C3-4 shows mild disc bulge mild facet and uncovertebral joint degenerative change. These findings show slight progression.There are now anterior metallic plate and screwsfrom C4 to C7.C7-T1 shows mild facet disease.There is no significant subluxation. The signal within the spinal cord is intact.IMPRESSION: Postoperative and degenerative change.[facility]-[id number] [facility] Lumbar Spine Wo [id number] 09:14:08Hm Interface, Radiology Results 09/09/2019 9:17 AM CDTEXAMINATION: MRI LUMBAR SPINE WO CONTRASTCOMPARISON: CT scan October 10, 2018.CLINICAL HISTORY: M47.22 Other spondylosis with radiculo aminata cervical region, M54.10 Radiculopathy site unspecified, L S-spine stenosisCOMMENTS: Sagittal and axial MR images of the lumbar spine are provided.FINDINGS: The numbering assumes fusion at L5-S1 disc. The minimal anterior subluxation of L5 on S1 is again identified. Pedicle screws are noted from L4 to S1. Bilateral laminectomy change suspected at L5-S1.L4-5 shows mild facet disease. There ismild disc bulge.L3-4 shows stable mild left paracentral disc protrusion. There is mild facet diseaseligament flavum thickening.L2-3 again shows a broad-based central [...] the lumbar spine compared to the previous study.[facility]-[id number] [facility] Healthcare ConroeTISSUE [id number] 15:56:00 Surgical Pathology Report Case: [id number] Authorizing Provider: aMi Nuñez MD Collected: 08/14/2018 1452 Ordering Location: [facility] Endoscopy Received: 08/15/2018 0833 Services Pathologist: Elsy Collier MD Specimens: A) - Duodenum, bx B) -Stomach, bx C) - Biopsy, Terminal Ileum, bx D) - ColonBiopsy, Random, bx A. DUODENUM, BIOPSY: - DUODENAL MUCOSA WITH FOCAL MILD INCREASE IN INTRAEPITHELIAL LYMPHOCYTES (SEE COMMENT) - NEGATIVE FOR VILLOUS BLUNTING B. STOMACH, BIOPSY: - CHRONIC INACTIVE GASTRITIS - NEGATIVE FOR H. PYLORI BY WARTHIN- STARRY STAINC. TERMINAL ILEUM, BIOPSY: - SMALL BOWEL MUCOSA WITH NO SIGNIFICANT PATHOLOGIC CHANGES - NEGATIVE FOR VILLOUS BLUNTING - NEGATIVE FOR SIGNIFICANT INCREASE OF INTRAEPITHELIAL LYMPHOCYTESD. COLON, RANDOM, BIOPSY: - FOCAL MILD INCREASE IN INTRAEPITHELIAL LYMPHOCYTES(SEE COMMENT) Signing Pathologist Direct Phone Line: [phone] signed by Elsy Collier MD on 08/19/2018 [...] including lymphocytic colitis. Clinical correlation is recommended. [id number] X 4, [id number] abdominal pain, LLQ abdominal pain A. Duodenum biopsy. B. Stomach biopsy. C. Biopsy, terminal ileum. D. Colon biopsy, randomPart A. Received informalin labeled with the patient's name, accession number [...] are multiple guerrero soft tissue fragments ranging from0.2- 0.5 cm, which are submitted in toto in D1. CG/ewThe interpretation of this case included the useof immunohistochemistry or special stains.WARTHIN-STARRYControl Slides Examined: In-house known positive controls were evaluated along with the test tissue. These control slides run alongside of the patients sample show appropriate staining. Internal positive and negative controls when available are evaluated Immunohistochemistry technical testing was performed at [facility], Pathology Laboratory where it was developed and its performance characteristics were determined. It has not been cleared or approved by the U.S. Food and Drug Administration. The FDA has determined thatsuch clearance or approval is not necessary. The test is used for clinical purposes. It should not be regarded as investigational or for research. This laboratory is certified under the Clinical Laboratory Improvement Amendments of 1988 (CLIA-88) as qualified to perform high complexity clinical laboratory testing.RAD, ABDOMEN/KUB, 1 VIEW [id number] 16:12:00Reason for Exam:->epigastric abdominal painReason for Exam:->constipation, unspecified constipation type FINAL REPORT Exam: Abdominal radiograph History: Constipation Comparison: None. Findings: Nonobstructive bowel gas pattern. Mild amount retained stool. Multiple surgical clips. Impression: No acute osseous abnormality Mild amount of retained stool Signed: Luisito Shafer MDRort Verified Date/Time: 04/16/2018 16:12:35
[2020-04-22 13:41] LABS: Absolute Lymphocytes (CBC) 2.1 K/uL (0.7-4.9); Hematocrit 40.9 % (36.0-45.0); Lymphocytes % 31.2 % (15.3-44.8); MPV 9.3 fL (7.6-11.3); RBC Red Blood Cell Count 4.83 M/uL (3.86-4.86)
[2020-04-22 13:49] LABS: Protime INR 0.88
--- NOTE | 2020-04-22 14:09 | RAD REPORT ---
EXAM DESCRIPTION: CT - Chest For Pe Angio - 04/22/2020 1:49 pm CLINICAL HISTORY: Chest pain. Congestion;Cough COMPARISON: No comparisons TECHNIQUE: CT angiogram of the pulmonary arteries was performed with MIP. All CT scans are performed using dose optimization technique as appropriate and may include automated exposure control or mA/KV adjustment according to patient size. FINDINGS: No evidence of pulmonary thromboembolism. No acute aortic finding demonstrated. The lungs are clear. No significant pericardial or pleural fluid. No concerning bony finding. IMPRESSION: No evidence of pulmonary thromboembolism. No acute lung findings.
[2020-04-22 14:15] LABS: SARS-COV-2 RT PCR NEGATIVE (NEGATIVE)
--- NOTE | 2020-04-22 14:24 | RAD REPORT ---
EXAM DESCRIPTION: RAD - Chest Single View - 04/22/2020 1:53 pm CLINICAL HISTORY: Congestion;Chest pain;Cough Chest pain. COMPARISON: Chest Single View dated 12/09/2019; Chest For Pe Angio dated 04/22/2020 FINDINGS: Portable technique limits examination quality. The lungs are grossly clear. The heart is normal in size. No displaced fractures. IMPRESSION: No acute intrathoracic process suspected.
--- NOTE | 2020-04-22 14:49 | RAD REPORT ---
EXAM DESCRIPTION: US - Extremity Venous Uni Ltd - 04/22/2020 2:11 pm CLINICAL HISTORY: immobilized left extremity Leg swelling and edema. COMPARISON: No comparisons FINDINGS: Left lower extremity venous system was interrogated with Doppler technique. Normal flow, c ompressibility and augmentation was noted. There is no DVT present. IMPRESSION: No evidence of left lower extremity deep venous thrombosis.
[2020-04-22] MEDS ORDERED: ONDANSETRON 4 MG/2 ML VIAL ONE (15:15)
[2020-04-22] MEDS ORDERED: METOPROLOL TAR 25 MG TAB ONE (15:25)
--- NOTE | 2020-04-22 15:32 | ER ---
Nurse's Notes [facility] Name: Mildred Caldwell Age: 44 yrs Sex: Female : 1975 Arrival Date: 04/22/2020 Time: 12:22 Bed 19 Private MD: Diagnosis: Palpitations Presentation: 04/22 12:40 Chief complaint: Patient states: Chest pain and palpitations for 3-4 days. SOB with ll1 exertion. Cough for 2.5 weeks, last covid test negative 04/05. Coronavirus screen: Client denies travel out of the [place] in the last 14 days. cough unrelated to allergies, headache, Client presents with at least one sign or symptom that may indicate coronavirus-19. Standard/surgical mask placed on the client. Ebola Screen: Patient denies travel to an Ebola-affected area in the 21 days before illness onset. Initial Sepsis Screen: Does the patient meet any 2 criteria? No. Patient's initial sepsis screen is negative. Does the patient have a suspected source of infection? No. Patient's initial sepsis screen is negative. Risk Assessment: Do you want to hurt yourself or someone else? Patient reports no desire to harm self or others. Onset of symptoms was April 19, 2020. 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 - Social history:: Smoking status: Patient denies any tobacco usage or history of. Screenin:55 Abuse screen: Denies threats or abuse. Denies injuries from another. Nutritional dm14 screening: No deficits noted. Tuberculosis screening: No symptoms or risk factors identified. Fall Risk None identified. Assessment: 12:57 General: Appears in no apparent distress. comfortable, Behavior is calm, cooperative, dm14 appropriate for age. Pain: Denies pain. Cardiovascular: Reports palpitations, shortness of breath. 14:05 Reassessment: Returned from radiology. No change in overall condition. dm14 15:00 Reassessment: Zofran given as ordered for nausea following CT with contrast. Pain: Pain dm14 does not radiate. Pain began 2-3 days ago. Vital Signs: 12:40 BP 132 / 85; Pulse 76; Resp 17; Temp 97.7; Pulse Ox 100% ; Weight 77.11 kg; Height 5 ll1 ft. 6 in. (167.64 cm); Pain 0/10; 12:55 BP 153 / 108; Pulse 80; Resp 19; Pulse Ox 100% ; dm14 13:00 BP 129 / 88; Pulse 73; Resp 18; Pulse Ox 100% ; dm14 13:30 BP 138 / 93; Pulse 73; Resp 18; Pulse Ox 100% ; dm14 14:05 BP 140 / 83; Pulse 77; Resp 18; Pulse Ox 100% ; dm14 15:04 BP 138 / 97; Pulse 65; Resp 17; Pulse Ox 97% ; jl7 12:40 Body Mass Index 27.44 (77.11 kg, 167.64 cm) ll1 ED Course: 12:22 Patient arrived in ED. ds1 12:42 Triage completed. ll1 12:43 Arm band placed on Patient placed in an exam room, on a stretcher. ll1 12:47 Genesis Aparicio, TACHO is Primary Nurse. dm14 12:49 Tre Charles MD is Attending Physician. kdr 12:55 Patient has correct armband on for positive identification. Bed in low position. Call dm14 light in reach. monitor and storage bin tender on. Pulse ox on. NIBP on. 13:17 Initial lab(s) drawn, by me, sent to lab. Inserted saline lock: 22 gauge in right jp3 antecubital area, using aseptic technique. Blood collected. Patient maintains SpO2 saturation greater than 95% on room air. 13:17 COVID swab sent to lab. Flu and/or RSV swab sent to lab. jp3 13:35 Missed attempt(s): 22 gauge in left antecubital area. Bleeding controlled, band aid ll1 applied, catheter tip intact. 13:41 Inserted saline lock: 22 gauge in right wrist, using aseptic technique. ll1 13:49 CT Chest For PE Angio In Process Unspecified. EDMS 13:53 XRAY Chest (1 view) In Process Unspecified. EDMS 14:11 US Extremity Venous Unilateral Ltd In Process Unspecified. EDMS 15:00 EKG done, by ED staff, reviewed by Tre Charles MD. jp3 16:12 No provider procedures requiring assistance completed. IV discontinued, intact, dm14 bleeding controlled, No redness/swelling at site. Pressure dressing applied. Administered Medications: 15:00 Drug: Zofran (Ondansetron) 4 mg Route: IVP; Site: right hand; dm14 16:12 Follow up: Response: No adverse reaction; Nausea is decreased dm14 15:10 Drug: Lopressor 25 mg Route: PO; jl7 16:11 Follow up: Response: No adverse reaction dm14 Outcome: 15:31 Discharge ordered by . kdr 16:12 Discharged to home ambulatory. dm14 16:12 Condition: stable 16:12 Discharge instructions given to patient, Instructed on discharge instructions, follow up and referral plans. medication usage, Demonstrated understanding of instructions, follow-up care, medications, Prescriptions given X 1. 16:13 Patient left the ED. dm14 Signatures: Dispatcher [employer] EDIL Tre Charles MD MD kdr Emma Bledsoe ds1 Carol Gruber, RN RN jl7 Charli Castaneda jp3 Faheem Demarco, RN RN ll1 Genesis Aparicio RN RN dm14
--- NOTE | 2020-04-22 15:32 | EDPHYS ---
Physician Documentation [facility] Name: Mildred Caldwell Age: 44 yrs Sex: Female : 1975 Arrival Date: 04/22/2020 Time: 12:22 Bed 19 Private MD: ED Physician Tre Charles HPI: 04/23 09:27 This 44 yrs old Female presents to ER via Ambulatory with complaints of kdr Irregular Pulse. 09:27 The patient presents with a history of irregular heart beat, heart racing. Context: The kdr symptoms occur at rest, with light activity, with stress. Onset: The symptoms/episode began/occurred Has been ongoing for months bout became worse in the last few days. States she feels like her heart is busting out of her chest. Duration: The patient or guardian reports multiple episodes, that are intermittent, that wax and wane, with no pattern. Modifying factors: The symptoms are aggravated by light activity, The symptoms are alleviated by nothing. Associated signs and symptoms: The patient has no apparent associated signs or symptoms. Severity of symptoms: At their worst the symptoms were moderate severe today, in the emergency department the symptoms have improved markedly. The patient has experienced similar episodes in the past, a few times, Has been going on for some months but recently worse. The patient has not recently seen a physician. 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 - Social history:: Smoking status: Patient denies any tobacco usage or history of. ROS: 04/23 09:27 Constitutional: Negative for fever, chills, and weight loss, Eyes: Negative for injury, kdr pain, redness, and discharge, ENT: Negative for injury, pain, and discharge, Neck: Negative for injury, pain, and swelling, Respiratory: Negative for shortness of breath, cough, wheezing, and pleuritic chest pain, Abdomen/GI: Negative for abdominal pain, nausea, vomiting, diarrhea, and constipation, Back: Negative for injury and pain, : Negative for injury, bleeding, discharge, and swelling, MS/Extremity: Negative for injury and deformity, Skin: Negative for injury, rash, and discoloration, Neuro: Negative for headache, weakness, numbness, tingling, and seizure activity. Psych: Negative for depression, anxiety, suicide ideation, homicidal ideation, and hallucinations, Allergy/Immunology: Negative for hives, rash, and allergies, Endocrine: Negative for neck swelling, polydipsia, polyuria, polyphagia, and marked weight changes, Hematologic/Lymphatic: Negative for swollen nodes, abnormal bleeding, and unusual bruising. Cardiovascular: Positive for chest pain, palpitations, Chest tightness with palpiations, Negative for edema, orthopnea. Exam: 04/22 19:03 ECG was reviewed by the Attending Physician. kdr 04/23 09:27 Constitutional: This is a well developed, well nourished patient who is awake, alert, kdr and in no acute distress. Head/Face: Normocephalic, atraumatic. Eyes: Pupils equal round and reactive to light, extra-ocular motions intact. Lids and lashes normal. Conjunctiva and sclera are non-icteric and not injected. Cornea within normal limits. Periorbital areas with no swelling, redness, or edema. ENT: Nares patent. No nasal discharge, no septal abnormalities noted. Tympanic membranes are normal and external auditory canals are clear. Oropharynx with no redness, swelling, or masses, exudates, or evidence of obstruction, uvula midline. Mucous membranes moist. Neck: Trachea midline, no thyromegaly or masses palpated, and no cervical lymphadenopathy. Supple, full range of motion without nuchal rigidity, or vertebral point tenderness. No Meningismus. Chest/axilla: Normal chest wall appearance and motion. Nontender with no deformity. No lesions are appreciated. Respiratory: Lungs have equal breath sounds bilaterally, clear to auscultation and percussion. No rales, rhonchi or wheezes noted. No increased work of breathing, no retractions or nasal flaring. Abdomen/GI: Soft, non-tender, with normal bowel sounds. No distension or tympany. No guarding or rebound. No evidence of tenderness throughout. Back: No spinal tenderness. No costovertebral tenderness. Full range of motion. Skin: Warm, dry with normal turgor. Normal color with no rashes, no lesions, and no evidence of cellulitis. MS/ Extremity: Pulses equal, no cyanosis. Neurovascular intact. Full, normal range of motion. Neuro: Awake and alert, GCS 15, oriented to person, place, time, and situation. Cranial nerves II-XII grossly intact. Motor strength 5/5 in all extremities. Sensory grossly intact. Cerebellar exam normal. Normal gait. Psych: Awake, alert, with orientation to person, place and time. Behavior, mood, and affect are within normal limits. Cardiovascular: Rate: normal, Rhythm: irregular, Pulses: no pulse deficits are appreciated, Heart sounds: normal, Edema: is not appreciated. Vital Signs: 04/22 12:40 BP 132 / 85; Pulse 76; Resp 17; Temp 97.7; Pulse Ox 100% ; Weight 77.11 kg; Height 5 ll1 ft. 6 in. (167.64 cm); Pain 0/10; 12:55 BP 153 / 108; Pulse 80; Resp 19; Pulse Ox 100% ; dm14 13:00 BP 129 / 88; Pulse 73; Resp 18; Pulse Ox 100% ; dm14 13:30 BP 138 / 93; Pulse 73; Resp 18; Pulse Ox 100% ; dm14 14:05 BP 140 / 83; Pulse 77; Resp 18; Pulse Ox 100% ; dm14 15:04 BP 138 / 97; Pulse 65; Resp 17; Pulse Ox 97% ; jl7 12:40 Body Mass Index 27.44 (77.11 kg, 167.64 cm) ll1 MDM: 15:31 Patient medically screened. kdr 04/23 09:36 Data reviewed: vital signs, nurses notes, lab test result(s), EKG, radiologic studies. kdr Counseling: I had a detailed discussion with the patient and/or guardian regarding: the historical points, exam findings, and any diagnostic results supporting the discharge/admit diagnosis, lab results, radiology results, the need for outpatient follow up. 04/22 13:03 Order name: Basic Metabolic Panel kdr 04/22 13:03 Order name: CBC with Diff; Complete Time: 14:44 kdr 04/22 13:03 Order name: LFT's kdr 04/22 13:03 Order name: Magnesium kdr 04/22 13:03 Order name: NT PRO-BNP kdr 04/22 13:03 Order name: PT-INR kdr 04/22 13:03 Order name: Troponin (emerg Dept Use Only) kdr 04/22 13:03 Order name: DD kdr 04/22 13:03 Order name: Basic Metabolic Panel EDMS 04/22 13:40 Order name: TSH; Complete Time: 16:02 kdr 04/22 13:51 Order name: CREATININE WHOLE BLOOD; Complete Time: 14:44 EDMS 04/22 14:15 Order name: COVID-19/FLU A+B; Complete Time: 14:44 EDMS 04/22 13:03 Order name: XRAY Chest (1 view); Complete Time: 14:44 kdr 04/22 13:03 Order name: EKG; Complete Time: 13:04 kdr 04/22 13:03 Order name: Cardiac monitoring; Complete Time: 13:35 kdr 04/22 13:03 Order name: EKG - Nurse/Tech; Complete Time: 13:35 kdr 04/22 13:03 Order name: IV Saline Lock; Complete Time: 13:35 kdr 04/22 13:03 Order name: Labs collected and sent; Complete Time: 15:25 kdr 03 13:03 Order name: O2 Per Protocol; Complete Time: 13:35 kdr 03 13:03 Order name: O2 Sat Monitoring; Complete Time: 13:35 kdr 03 13:03 Order name: CT Chest For PE Angio; Complete Time: 14:44 kdr 03 13:05 Order name: US Extremity Venous Unilateral Ltd; Complete Time: 15:05 kdr 03 13:54 Order name: Labs - recollect needed: recollect chem please; Complete Time: 14:38 em1 EC/04 19:03 Rate is 66 beats/min. Rhythm is irregular, Sinus arrythmia with No ectopy. QRS [place] is kdr Normal. NM interval is normal. QRS interval is normal. QT interval is normal. Clinical impression: NSR w/ Non-specific ST/T Changes. Administered Medications: 15:00 Drug: Zofran (Ondansetron) 4 mg Route: IVP; Site: right hand; dm14 16:12 Follow up: Response: No adverse reaction; Nausea is decreased dm14 15:10 Drug: Lopressor 25 mg Route: PO; jl7 16:11 Follow up: Response: No adverse reaction dm14 Disposition: 04/22/20 15:31 Discharged to Home. Impression: Palpitations. - Condition is Stable. - Discharge Instructions: Palpitations, [id number]. - Prescriptions for Lopressor 50 mg Oral Tablet - take 1 tablet by ORAL route every 12 hours; 30 tablet. - Medication Reconciliation Form, Thank You Letter form. - Follow up: Private Physician; When: 2 - 3 days; Reason: If symptoms return, Further diagnostic work-up, Recheck today's complaints, Continuance of care, Re-evaluation by your physician. - Problem is an ongoing problem. - Symptoms have improved. Signatures: Dispatcher [employer] EDIL Tre Charles MD MD kdr Martinez, Jorge em1 Carol Gruber, RN RN jl7 Faheem Demarco RN RN ll1 Genesis Aparicio RN RN dm14 Corrections: (The following items were deleted from the chart) 13:35 13:04 CORONAVIRUS+MR.LAB.BRZ ordered. [facility] EDIL 13:35 13:04 Influenza Screen (A \T\ B)+BA.LAB.BRZ ordered. [facility] EDIL 16:13 15:31 04/22/2020 15:31 Discharged to Home. Impression: Palpitations. Condition is dm14 Stable. Forms are Medication Reconciliation Form, Thank You Letter, Antibiotic Education, Prescription Opioid Use. Follow up: Private Physician; When: 2 - 3 days; Reason: If symptoms return, Further diagnostic work-up, Recheck today's complaints, Continuance of care, Re-evaluation by your physician. Problem is an ongoing problem. Symptoms have improved. kdr
[2020-04-22 15:45] LABS: ALT/SGPT 28 U/L (12-78); AST/SGOT 15 U/L (15-37); Albumin 3.7 g/dL (3.4-5.0); BUN Blood Urea Nitrogen 14 mg/dL (7-18); Bicarbonate 26 mmol/L (21-32); Bilirubin Direct < 0.1 mg/dL (0-0.2); Glucose Level 85 mg/dL (74-106); Magnesium 2.2 mg/dL (1.8-2.4); Potassium 3.5 mmol/L (3.5-5.1); Sodium Level 141 mmol/L (136-145)
[2020-04-22 16:08] LABS: Alkaline Phosphatase 94 U/L (45-117); Bilirubin Total 0.2 mg/dL (0.2-1.0); NT PRO-BNP 54 pg/mL (<125); Protein, Total 7.3 g/dL (6.4-8.2); Troponin (Emerg Dept Use Only) < 0.02 ng/mL (0.0-0.045)
[2020-04-22 16:42] VITALS: TEMP 97.7
[2020-04-22 16:47] VITALS: BP 138/97; O2SAT 97
== END 2020-04-22 16:13 | disposition home or self-care (01) ==
LOC: ER 12:20
DX: R00.2 Palpitations (principal); Z20.822 Contact with and (suspected) exposure to COVID-19; I10 Essential (primary) hypertension; G89.29 Other chronic pain
CPT/HCPCS: 93005; 85025; 80048; 36415; 83735; 85610; 82565; 85379; 80076; 84443; 84484; 83880; 0240U; 71275; 71045; 93971; 96374; 99285; Q9967; J2405

== ENCOUNTER 2020-06-06 21:45 | Emergency (ER) | payer OTHER ==
--- OUTSIDE RECORDS SUMMARY | 2020-06-06 21:50 | XMS REPORT | Continuity of Care Document ---
:1975 Author Organization [facility] t Address [address] [place] [address] Care Team Providers Name Role Phone Phu Paul MD Primary Care Physician David SUAREZ Attending Clinician LUIS MIGUEL Attending Clinician Unavailable Tommy Velazquez Attending Clinician Yonny GENAO Attending Clinician Unavailable JESUS MANUEL Attending Clinician Unavailable Shawna Montenegro PA-C Attending Clinician Navjot NUÑEZ Attending Clinician Unavailable JANETH Attending Clinician Unavailable Navjot NUÑEZ Admitting Clinician Unavailable Payers Payer Name Policy Type Policy Effective Date Expiration Date [facility] ce Number [facility] [id number] 2017 [facility] 00:00:00 Religion [facility] [id number] O Problems Condition Condition Condition Status Onset Resolution Last Treating Co mments Source Name Details Category Date Date Treatment Clinician Date Cervical Cervical Disease Active 2017-02 [place] spondylosi spondylosi 2-21 Me thodi s with s with 00:00: st radiculopa radiculopa 00 thy thy History of History of Disease Active Overview : Faheem colonoscop colonoscop 8-13 [facility] y 09/2017 y 09/2017 00:00: g of this 00 note might be different from the original. Recommend repeating colonosco py in 10yrs and forgo annual FIT in the interim. Mood Mood Disease Active Faheem swings swings 7-06 Health 00:00: 00 BRCA gene BRCA gene Disease Active Overview: Faheem mutation mutation 1-22 [facility] positive positive 00:00: g of this 00 note might be different from the original. Added automatic ally from request for surgery [id number] Endometria Endometria Disease Active H arris l polyp l polyp 02-23 Health 00:00: 00 S/P TRAM S/P TRAM Disease Active 2016-02 Harri s (transvers (transvers 2-21 He alth e [...] different from the original. 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 Intereste d in RRBSO. Plan to do after mastectom y/recontr uction. CA-125 ordered. TVUS scheduled 08/18/16. Plan for [id number] surveilla nce until risk reducing BSO. 03/27/17: exam under anesthesi a, diagnosti c and operative laparosco py, total laparosco pic hysterect jac, bilateral salpingo- oophorect jac, pelvic washings. (Anthony)03/22 06/06: tumor board: pathology notable for negative washings, benign adnexa, and uterus. Plan for annual WWE. Lumbar Lumbar Problem Active [facility] [place] [facility], Pain, Diagnosis Active [facility] [...] Active [facility] [place] [facility] Allergies, Adverse Reactions, Alerts Allergy Allergy Status Severity Reaction(s) Onset Inactive Treating Comm ents Source Name Type Date Date Clinician No Known DA Active U 2019-02 [facility] 03-27 [facility] Adhesive Propensi Active Dermatitis 2017-02 Blistered [facility] Tape-Renée ty to 04-11 when [facility] icones adverse 00:00: abdominal st reaction 00 bandage s to left on drug for a week. Family History Family Member Diagnosis Comments Start Date Stop Date Source Natural brother Diabetes [facility] Natural father Cancer [facility] Natural father Cancer [facility] Natural mother Diabetes [facility] thodist Natural mother Arthritis [facility] Natural mother Diabetes [facility] Social History Social Habit Start Date Stop Date Quantity Comments Source History [facility] Meth odist Alcohol Std Drinks History [facility] odist Alcohol Binge Exposure to Not sure [facility]o dist SARS-CoV-2 (event) Sex Assigned At [facility] alth Tobacco use and 2018-08-16 2018-08-16 Never used [facility] alth exposure 00:00:00 00:00:00 Alcohol intake 2018-02-13 2018-02-13 Current [facility] thodist 00:00:00 00:00:00 non-drinker of alcohol (finding) History [facility] 2018-01-28 2018-01-28 1 [facility] Alcohol Frequency 00:00:00 00:00:00 Alcohol Comment 2015-07-22 2015-07-22 1 [facility] Smoking Status Start Date Stop Date Source Never smoker [facility] Medications Ordered Filled Start Stop Current Ordering Indication Dosage Frequency Signature Comments Components Source Medication Medication Date Date Medication? Clinician (SIG) Name Name ibuprofen Yes 600mg Q6H Take [address] (ADVIL,MOTR 8-22 mg by Methodi IN) 600 MG 10:03: mouth st tablet 26 every 6 (six) hours as needed for mild pain. lipase-prot Yes [id number]{ [id number] Take [facility]-amylas 6- lipase} [id number] 36,000 [facility] - e (CREON) 16:25: 3D [...] Add H arris e glycol 09-19 bloating mirian Castellanosa lth (GOLYTELY) 00:00: drinking 236-22.74-6 00 water to .74 -5.86 the fill gram oral michael (4 solution liters) and shake. Drink as directed by your doctor.. venlafaxine Yes Mood swings 37.5mg QD Take 1 [place] (EFFEXOR 7-06 capsule by [employer] XR) 37.5 mg 00:00: mouth extended 00 daily. release capsule acetaminoph Yes BRCA gene 1{tbl} Take 1 [facility] en-codeine 2-27 positive tablet by [employer] (TYLENOL/CO 00:00: mouth DEINE #3) 00 every 4 300-30 mg hours as per tablet needed for Pain. traMADol Yes BRCA gene 50mg Take 1 [facility] (ULTRAM) 50 2-27 mutation tablet by Health mg tablet 00:00: positive mouth 00 every 6 hours as needed for Pain. ibuprofen Yes BRCA gene 600mg Take 1 [facility] (MOTRIN) 2-06 mutation tablet by He alth 600 mg 00:00: positive mouth tablet 00 every 6 hours as needed for Pain. gabapentin Yes BRCA gene 100mg Take 1 [facility] (NEURONTIN) 2-06 mutation capsule by Health 100 mg 00:00: positive mouth 3 capsule 00 times daily. acetaminoph Yes BRCA gene 650mg Take 2 [place] en 2-06 mutation tablets by [employer] (TYLENOL) 00:00: positive mouth 325 mg 00 every 6 tablet hours as needed for Pain. promethazin 2016-02 Yes BRCA gene 25mg Take 1 [place] e 1-14 positive tablet by [facility] (PHENERGAN) 00:00: mouth 25 mg 00 every 6 tablet hours as needed for Nausea or Vomiting. raNITIdine 2016-02 Yes 150mg Q.5D Take 1 [place] is HCl 150 mg 0-19 tablet by [facility] th tablet 00:00: mouth 2 00 times daily. BOOST oral 2016-02 Yes 1{packa Q.5D Take 1 [facility] liquid 0-16 ge} Package by [facility] 00:00: mouth 2 00 times daily. ondansetron 2016-02 Yes 4mg Take 1 [place] is (ZOFRAN) 4 0-12 tablet by [facility] th mg tablet 00:00: mouth 00 every 8 hours as needed for up to 21 doses for Nausea. acetaminoph 2016-02 Yes 2{tbl} Take 2 [place] en-codeine 0-09 tablets by [facility] (TYLENOL/CO 00:00: mouth DEINE #3) 00 every 4 300-30 mg hours as per tablet needed for Pain. silver 2016-02 Yes QD Apply to [place] sulfADIAZIN 0-09 affected Heal th E 00:00: area daily (SILVADENE) 00 Apply to 1 % topical purple cream discolored areas of breasts. Tylenol # 3 Tylenol # 3 Yes Jerod one tab [facility] Immunizations Ordered Immunization Filled Immunization Date Status Commen ts Source Name Name FLUCELVAX QUAD PF 2018-02-09 Completed [facility] 00:00:00 Religion Influenza Vaccine 2016-11-25 Completed [facility] 00:00:00 Procedures Procedure Date / Time Performed Performing Clinician Sourc e XRAY Spine Thoracic 2020-03-08 00:00:00 [facility] 4+ views [id number] Spine lumbar wo 2020-03-08 00:00:00 [facility] contrast [id number] Physicians MRI Spine thoracic wo 2020-03-08 00:00:00 [facility] contrast [id number] Physicians XR SPINE SCOLIOSIS 2020-01-29 14:18:30 Kade Velazquez Religion 2-3 VIEWS MRI THORACIC SPINE WO 2019-09-09 09:49:03 Kade Velazquez Religion CONTRAST MRI CERVICAL SPINE WO 2019-09-09 09:17:00 Kade Velazquez Religion CONTRAST MRI LUMBAR SPINE WO 2019-09-09 09:02:00 Kade Velazquez on Religion CONTRAST XR SPINE SCOLIOSIS 2019-09-01 13:19:40 Kade Velazquez Religion 2-3 VIEWS Plan of Care Planned Activity Planned Date Details Comments Source Future Scheduled 2021-08-01 Screening for [facility] Test 00:00:00 malignant neoplasm of cervix (procedure) [code = 468224501] Future Scheduled 2020-11-19 IMM Influenza [facility] Test 00:00:00 Seasonal Nov to April (>/= 19 yrs) [code = IMM Influenza Seasonal Nov to April (>/= 19 yrs)] Future Scheduled 2020-09-19 INFLUENZA VACCINE [place] [facility] Test 00:00:00 [code = INFLUENZA VACCINE] Future Scheduled 2019-10-[address] [facility] - Test 00:00:00 (#1) [code = [facility] INFLUENZA VACCINE (#1)] Future Scheduled 2017-12-27 Breast Cancer Scrn [facility] Test 00:00:00 (Yearly) [code = Breast Cancer Scrn (Yearly)] Future Scheduled 2004 Screening for [facility] Test 00:00:00 malignant neoplasm of cervix (procedure) [code = 076479095] Future Scheduled 1995-12-[address] [facility] - Test 00:00:00 malignant neoplasm Medical C enter of cervix (procedure) [code = 765996829] Future Scheduled 1995-12-24 Screening for [facility] Test 00:00:00 malignant neoplasm of cervix (procedure) [code = 445992733] Future Scheduled 1992 Hepatitis C [facility] Test 00:00:00 screening (procedure) [code = 683621953] Future Scheduled 1990 COVID-19 VACCINE [facility] Test 00:00:00 (1) [code = COVID-19 VACCINE (1)] Future Scheduled 1990 COVID-19 Vaccine [facility] Test 00:00:00 (1) [code = COVID-19 Vaccine (1)] Encounters Start End Encounter Admission Attending Care Care Encounter Source Date/Time Date/Time Type Type Clinicians Facility Department ID 2016-12-11 Inpatient [facility] [id number] H arris 19:13:58 Health 2016-11-22 Inpatient [facility] [id number] H arris 15:22:01 Health 2016-11-21 Inpatient [facility] [id number] H arris 01:48:38 Health 2016-11-21 Inpatient [facility] [id number] H arris 01:48:30 Health 2016-11-20 Inpatient [facility] [id number] H arris 05:55:00 [facility] 2020-05-21 2020-05-[address] [facility] [id number] 12:32:45 12:47:45 Visit Delmar SERRATO [id number] [facility] [id number] [facility] 2020-03-08 2020-03-08 Appointashley [facility] PM&R [facility] [id number] [facility] 08:30:00 08:30:00 t; Albina VILLAFUERTE [place] CHRISTO Physici M.D. [facility] 2020-01-29 2020-01-29 Outpatient [facility] [id number] [facility] 00:00:00 00:00:00 KADE [address] 2020-01-29 2020-01-29 Outpatient [facility] [id number] [facility] 00:00:00 00:00:00 KADE [address] 2019-11-05 2019-11-05 Outpatient [facility] [id number] Memoria 05:21:00 05:21:00 [facility] 2019-10-07 2019-10-07 Outpatient [facility] [id number] Memoria 09:00:00 09:00:00 [facility] 2019-09-09 2019-09-09 Outpatient [facility] [id number] [facility] 00:00:00 00:00:00 KADE [address] 2019-09-09 2019-09-09 Outpatient [facility] [id number] [facility] 00:00:00 00:00:00 KADE [address] 2019-09-09 2019-09-09 Outpatient [facility] [id number] [facility] 00:00:00 00:00:00 KADE [address] 2019-09-01 2019-09-01 Outpatient [facility] [id number] [facility] 00:00:00 00:00:00 KADE [address] 2019-09-01 2019-09-01 Outpatient [facility] [id number] [facility] 00:00:00 00:00:00 KADE [address] 2019-01-01 2019-01-01 Appointmen ANTON KEN [facility]TP [id number] Univers 14:00:00 14:00:00 t; BREANA KEN M.D. [facility] M.D. Physici ans 2018-10-04 2018-10-04 Office CELE Montenegro [id number] 09:32:10 10:24:11 Visit Tianna AMBULATOR [id number] Shawna Y [id number] 2018-07-17 2018-07-17 Appointmen CIELO FOWLER, ANTON UTP [id number] Univers 11:00:00 11:00:00 t; Albina FOWLER M.D. [place] [facility] 2018-04-03 2018-04-03 Outpatient [facility] [id number] [place] 00:00:00 00:00:00 Health 2018-03-12 2018-03-12 [facility] [id number] [facility] 13:30:00 13:30:00 [facility] Clin[facility] 2018-01-09 2018-01-09 Outpatient [facility] [id number] [place] 00:00:00 00:00:00 Health 2017-12-26 2017-12-26 Outpatient [facility] [id number] [place] 00:00:00 00:00:00 Health 2017-12-25 2017-12-25 Outpatient [facility] [id number] [place] 00:00:00 00:00:00 Health 2017-11-21 2017-11-21 Outpatient [facility] [id number] [place] 12:12:10 12:12:10 Health 2017-11-19 2017-11-19 [facility] [id number] 09:00:00 09:00:00 [facility] Clin[facility] 2017-11-16 2017-11-16 Outpatient [facility] [id number] [place] 08:30:23 08:30:23 Health 2017-11-12 2017-11-12 [facility] [id number] 14:22:00 14:22:00 [facility] 2017-11-12 2017-11-12 Outpatient [facility] [id number] [place] 00:00:00 00:00:00 [facility] 2017-11-08 2017-11-08 Outpatient [facility] [id number] [place] 00:00:00 00:00:00 [facility] 2017-11-05 2017-11-05 [facility] [id number] 10:03:00 10:03:00 [facility] 2017-10-29 2017-10-29 [facility] [id number] 08:00:00 08:00:00 [facility] 2017-10-11 2017-10-11 Outpatient [facility] [id number] [place] 09:34:54 09:34:54 Health 2017-10-10 2017-10-10 Outpatient [facility] [id number] [place] 00:00:00 00:00:00 [facility] 2017-10-03 2017-10-03 Outpatient [facility] [id number] [place] 00:00:00 00:00:00 Health 2017-09-28 2017-09-28 Outpatient [facility] [id number] [place] 06:43:36 06:43:36 Health 2017-09-28 2017-09-28 Outpatient [facility] [id number] [place] 00:00:00 00:00:00 Health 2017-09-28 2017-09-28 Outpatient [facility] [id number] [place] 00:00:00 00:00:00 Health 2017-09-26 2017-09-26 Outpatient [facility] [id number] [place] 13:42:42 13:42:42 [facility] 2017-09-26 2017-09-26 Outpatient [facility] [id number] [place] 00:00:00 00:00:00 [facility] 2017-09-21 2017-09-21 Outpatient [facility] [id number] [place] 00:00:00 00:00:00 [facility] 2017-09-19 2017-09-19 Outpatient [facility] [id number] [place] 14:50:01 14:50:01 [facility] 2017-09-19 2017-09-19 Outpatient [facility] [id number] [place] 13:16:35 13:16:35 [facility] 2017-09-12 2017-09-12 Outpatient [facility] [id number] [place] 00:00:00 00:00:00 [facility] 2017-08-24 2017-08-24 Outpatient [facility] [id number] [place] 09:22:38 09:22:38 [facility] 2017-07-27 2017-07-27 Outpatient [facility] [id number] [place] 10:35:47 10:35:47 [facility] 2017-07-05 2017-07-05 Outpatient [facility] [id number] [place] 12:15:23 12:15:23 [facility] 2017-07-03 2017-07-03 Outpatient [facility] [id number] [place] 00:00:00 00:00:00 [facility] 2017-05-23 2017-05-23 Outpatient [facility] [id number] [place] 13:13:44 13:13:44 [facility] 2017-05-02 2017-05-02 Outpatient [facility] [id number] [place] 00:00:00 00:00:00 [facility] 2017-04-25 2017-04-25 Outpatient [facility] [id number] [place] 09:01:53 09:01:53 [facility] 2017-04-17 2017-04-17 Outpatient [facility] [id number] [place] 06:05:00 06:05:00 [facility] 2017-04-17 2017-04-17 Outpatient [facility] [id number] [place] 00:00:00 00:00:00 [facility] 2017-04-16 2017-04-16 Outpatient [facility] [id number] [place] 00:00:00 00:00:00 [facility] 2017-04-13 2017-04-13 Outpatient [facility] [id number] [place] 09:12:04 09:12:04 [facility] 2017-04-03 2017-04-03 Outpatient [facility] [id number] [place] 00:00:00 00:00:00 [facility] 2017-03-27 2017-03-27 Outpatient [facility] [id number] [place] 06:15:00 06:15:00 [facility] 2017-03-27 2017-03-27 Outpatient [facility] [id number] [place] 00:00:00 00:00:00 [facility] 2017-03-19 2017-03-19 Outpatient [facility] [id number] [place] 13:22:16 13:22:16 [facility] 2017-03-19 2017-03-19 Outpatient [facility] [id number] [place] 00:00:00 00:00:00 [facility] 2017-03-12 2017-03-12 Outpatient [facility] [id number] [place] 13:45:55 13:45:55 [facility] 2017-03-09 2017-03-09 Outpatient [facility] [id number] [place] 00:00:00 00:00:00 [facility] 2017-03-08 2017-03-08 Outpatient [facility] [id number] [place] 16:03:22 16:03:22 [facility] 2017-03-08 2017-03-08 Outpatient [facility] [id number] [place] 14:45:05 14:45:05 [facility] 2017-02-23 2017-02-23 Outpatient [facility] [id number] [place] 10:41:02 10:41:02 [facility] 2017-02-23 2017-02-23 Outpatient [facility] [id number] [place] 08:11:53 08:11:53 [facility] 2017-02-23 2017-02-23 Outpatient [facility] [id number] [place] 07:53:43 07:53:43 [facility] 2017-02-23 2017-02-23 Outpatient [facility] [id number] [place] 00:00:00 00:00:00 [facility] 2017-02-08 2017-02-08 Outpatient [facility] [id number] [place] 12:32:00 12:32:00 [facility] 2017-01-24 2017-01-24 Outpatient [facility] [id number] [place] 00:00:00 00:00:00 [facility] 2017-01-23 2017-01-23 Outpatient [facility] [id number] [place] 12:16:30 12:16:30 [facility] 2017-01-22 2017-01-22 Outpatient [facility] [id number] [place] 11:30:20 11:30:20 [facility] 2017-01-15 2017-01-15 Outpatient [facility] [id number] [place] 00:00:00 00:00:00 [facility] 2017-01-09 2017-01-09 Outpatient [facility] [id number] [place] 09:09:26 09:09:26 [facility] 2017-01-04 2017-01-04 Outpatient [facility] [id number] [place] 14:36:02 14:36:02 [facility] 2017-01-02 2017-01-02 Outpatient [facility] [id number] [place] 08:36:10 08:36:10 [facility] 2016-12-27 2016-12-27 Outpatient [facility] [id number] [place] 11:33:15 11:33:15 [facility] 2016-12-22 2016-12-22 Outpatient [facility] [id number] [place] 09:02:45 09:02:45 [facility] 2016-12-11 2016-12-11 Outpatient [facility] [id number] [place] 09:01:19 09:01:19 [facility] 2016-12-11 2016-12-11 Inpatient [facility] [id number] [place] 14:16:44 00:00:00 [facility] 2016-12-07 2016-12-07 Outpatient [facility] [id number] [place] 00:00:00 00:00:00 [facility] 2016-12-06 2016-12-06 Outpatient [facility] [id number] [place] 14:40:31 14:40:31 [facility] 2016-12-04 2016-12-04 Outpatient [facility] [id number] [place] 10:31:01 10:31:01 [facility] 2016-11-27 2016-11-27 Outpatient [facility] [id number] [place] 00:00:00 00:00:00 [facility] 2016-11-20 2016-11-20 Outpatient [facility] [id number] [place] 00:00:00 00:00:00 [facility] 2016-11-20 2016-11-20 Outpatient [facility] [id number] [place] 00:00:00 00:00:00 [facility] 2016-11-17 2016-11-17 Outpatient [facility] [id number] [place] 00:00:00 00:00:00 [facility] 2016-10-12 2016-10-12 Outpatient [facility] [id number] [place] 00:00:00 00:00:00 [facility] 2016-10-10 2016-10-10 Outpatient [facility] [id number] [place] 00:00:00 00:00:00 [facility] 2016-10-10 2016-10-10 Outpatient [facility] [id number] [place] 00:00:00 00:00:00 Health 2016-10-10 2016-10-10 Outpatient [facility] [id number] [place] 00:00:00 00:00:00 Health 2016-09-15 2016-09-15 Outpatient [facility] [id number] [place] 00:00:00 00:00:00 Health 2016-08-30 2016-08-30 Outpatient [facility] [id number] [place] 09:44:27 09:44:27 Health Results Test Test Test Results Result Source Description Time Comments Comments MRI Spine 2020-03- EXAM: Spine Thoracic wo [facility] thoracic wo 05 contrast MRIDATE: 03/26/2020 [place] contrast [id number] 14:45:00 14:47 CSTINDICATION: Physicians -Mid back painCOMPARISON: [...] 2020-03- EXAM: XR THORACIC SPINE 2 [facility] Thoracic 4+ 05 VIEWSDATE: 03/26/2020 13:31 [place] views [id number] 13:45:00 CSTINDICATION: - M54.9 Physicians Dorsalgia, unspecifiedCOMPARISON: [...] Spine lumbar 2020-03- EXAM: CT LUMBAR SPINE [facility] contrast 05 WITHOUT CONTRASTDATE: Tom robert [id number] 13:31:00 03/26/2020 13:35 Physicians CSTINDICATION: M54.5 Low [...] thesubarticular zone.--This report was dictated by a Comedian/Fellow/Physician Barrel Loader And Cleaner. Ihave personallyreviewed the images as well as the interpretation and agree with the findings.Read by: Linus Argueta MD Resident/Fellow/PhysicianA ssistant: Linus Argueta MDDictated Date/time: 03/26/20 14:06Electronically Signed by: Vinh Ohara MD 03/29/2112:46FINAL REPORT MRI Spine thoracic wo contrast [id number] 2020-03-26 13:30:00 Test Item Value Reference Range Interpretation Comme nts Spine thoracic wo contrast MRI (test code = Cancel Reason: Duplicat e Order Spine thoracic wo contrast MRI) [facility] PhysiciansI Thoracic Spine Wo [id number] 10:05:41 Interface, Radiology Results - 09/09/2019 10:08 AM CDT MRI of the thoracic spine without contrastHistory: Cervical spondylosis with radiculopathy. Radicular syndrome of the left leg. Fusion of lumbar spineComparison: Same day MRI of the cervical and lumbar spineTechnique: Multiplanar multiplanar multisequence MRI of the thoracic spine.Contrast: NoneComplications: NoneFINDINGS:Alignment: Normal kyphosis. No scoliosisSoft tissues:No signal abnormalitiesPartially visualized anterior fusion of the cervical spineSpinal cord: Normalin signal and morphology.Vertebrae: No fractures, infection or neoplasm.Degenerative changes:Mild disc degeneration with loss of T2 signal from T2 through T10. Grossly patent canal and foraminaIMPRESSION: 1. Minimal disc degeneration of the upper and mid thoracic spine without significant canal stenosis or foraminal narrowingHendrick [facility] Cervical Spine Wo [id number] 09:35:26Hm Interface, Radiology Results 09/09/2019 9:38 AM CDT EXAMINATION: MRI CERVICAL SPINE WO CONTRASTCOMPARISON: December 24, [...] spinal cord is intact.IMPRESSION: Postoperative and degenerative change.[id number] MethodistMRI Lumbar Spine Wo [id number] 09:14:08Hm Interface, Radiology Results 09/09/2019 9:17 AM CDT EXAMINATION: MRI LUMBAR SPINE WO CONTRASTCOMPARISON: CT scan [...] defect with edema is noted towards the rightside at upper L3 vertebral body and in the lower L2 vertebral body.The upper level show mild facet disease. The conus ends at the lower L1 level.IMPRESSION: Tiny new endplate defects with edema noted at the lower L2 vertebral body and upper L3 vertebral body towards the right. Otherwise grossly stable appearance of the lumbar spine compared to the previous study.[id number] MethodistTISSUE [id number] 15:56:00Surgical Pathology Report Case: [id number] Authorizing Provider: Mai Nuñez MD Collected: 08/14/2018 1452 Ordering Location: [facility] Endoscopy Received: 08/15/2018 0833 Services Pathologist: Elsy Collier MD Specimens: A) - Duodenum, bx B) -Stomach, bx C) - Biopsy, Terminal Ileum, bx D) - ColonBiopsy, Random, bx A. DUODENUM, BIOPSY: - D UODENAL MUCOSA WITH FOCAL MILD INCREASE IN INTRAEPITHELIAL [...] LYMPHOCYTES(SEE COMMENT) Signing Pathologist Direct Phone Line: [phone] signed by Elsy Collier MD on 08/19/2018 [...] including lymphocytic colitis. Clinical correlation is recommended. [id number] X 4, [id number] abdominal pain, LLQ abdominal pain A. Duodenum biopsy. B. Stomach biopsy. C. Biopsy, terminal ileum. D. Colon biopsy, randomPart A. Received informalin labeled with the patient's name, accession number and "duodenum" are multiple guerrero soft tissue fragments ranging from 0.2- 0.4 cm, which are submitted in toto in [...] are multiple guerrero soft tissue fragments ranging from0.2-0.5 cm, which are submitted in toto in D1. CG/ewThe interpretation of this case included the useof immunohistochemistry or special stains.WARTHIN-STARRYControl Slides Examined: In-house known positive controls were evaluated along with the test tissue. These control slides run alongside of the patients sample show appropriate staining. Internal positive and negative controls when available areevaluated Immunohistochemistry technical testing was performed at [facility], Pathology Laboratory where it was developed [...] complexity clinical laboratory testing.RAD, ABDOMEN/KUB, 1 VIEW [id number] 16:12:00Reason for Exam:->epigastric abdominal painReason for Exam:->constipation, unspecified constipation typeFINAL REPORT Exam: Abdominal radiograph History: Constipation Comparison: None. Findings: Nonobstructive bowel gas pattern. Mild amount retained stool. Multiple surgical clips. Impression: No acute osseous abnormality Mild amount of retained stool Signed: Luisito Shafer MDReport Verified Date/Time: 04/16/2018 16:12:35
[2020-06-06] MEDS ORDERED: KETOROLAC 30 MG/ML INJ ONE (23:12)
[2020-06-06] MEDS ORDERED: HYDROCODONE/APAP 10/325 TAB ONE (23:12)
[2020-06-06] MEDS ORDERED: LIDOCAINE 4% PATCH ONE (23:13)
[2020-06-07 00:02] LABS: Urine Blood TRACE (Negative); Urine Glucose NEGATIVE (Negative); Urine Protein NEGATIVE (Negative); Urine pH 6.5 (5.0-7.0)
[2020-06-07 00:20] LABS: SARS-COV-2 RT PCR NEGATIVE (NEGATIVE)
[2020-06-07 00:49] LABS: Urine Bacteria <20 /HPF (<20); Urine RBC NONE SEEN /HPF (NONE SEEN)
--- NOTE | 2020-06-07 00:55 | EDPHYS ---
Physician Documentation [facility] Name: Mildred Caldwell Age: 44 yrs Sex: Female : 1975 Arrival Date: 06/06/2020 Time: 21:49 Bed 16 Private MD: CHICHO Physician Titus Beltran HPI: 06/06 23:00 This 44 yrs old Female presents to ER via Ambulatory with complaints of Back pm1 pain. 23:00 The patient presents with pain that is chronic. The symptoms are located in the low pm1 back. Onset: The symptoms/episode began/occurred today. The pain radiates to the left leg. Associated signs and symptoms: Pertinent negatives: abdominal pain, dysuria, fever, nausea, numbness, tingling. Modifying factors: The patient symptoms are alleviated by specific position, the patient symptoms are aggravated by Staying in bed all day on Sunday. Severity of symptoms: in the emergency department the symptoms are unchanged. Patient received Moderna covid vaccine Sunday. Patient's main complaint is low back pain. She was vaccinated for covid on Sunday. Sunday she stayed in bed all day because she had flu like symptoms, BRUNER, weakness, body aches and arm pain. She has a history of chronic low back pain and since she stayed in bed all day Sunday her back started hurting more than normal. She usually has to keep moving and on her feet to minimize her chronic pain. Patient had some shortness of breath at 1700 that resolved after she calmed down and did breathing exercises due to the back pain. She is now here for covid and flu screening and back pain medications. 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 - Social history:: Smoking status: Patient denies any tobacco usage or history of. ROS: 23:00 Cardiovascular: Negative for chest pain, palpitations, and edema. pm1 23:00 Abdomen/GI: Negative for abdominal pain, nausea, vomiting, diarrhea, and constipation. 23:00 : Negative for injury, bleeding, discharge, and swelling, MS/Extremity: Negative for injury and deformity, Skin: Negative for injury, rash, and discoloration. 23:00 Constitutional: Positive for body aches, Negative for fever, poor PO intake. 23:00 Respiratory: Positive for shortness of breath, at rest. that has resolved, Negative for cough, wheezing. 23:00 Back: Positive for of the low back area, Pain, Negative for injury or acute deformity. 23:00 Neuro: Positive for headache, resolved. Exam: 23:00 Constitutional: This is a well developed, well nourished patient who is awake, alert, pm1 and in no acute distress. Head/Face: Normocephalic, atraumatic. 23:00 Skin: Warm, dry with normal turgor. Normal color with no rashes, no lesions, and no evidence of cellulitis. MS/ Extremity: Pulses equal, no cyanosis. Neurovascular intact. Full, normal range of motion. 23:00 Cardiovascular: Exam negative for acute changes, Rate: normal, Rhythm: regular, Pulses: no pulse deficits are appreciated. 23:00 Respiratory: Exam negative for acute changes, respiratory distress, shortness of breath. 23:00 Back: normal spinal alignment noted, muscle spasm, is appreciated in the low back area. 23:00 Neuro: Exam negative for acute changes, Orientation: is normal, Mentation: is normal, Motor: is normal, moves all fours, Sensation: is normal, no obvious gross deficits. Vital Signs: 21:59 BP 131 / 70; Pulse 107; Resp 19 S; Temp 99.6(TE); Pulse Ox 98% on R/A; Weight 77.11 kg ca1 (R); Height 5 ft. 6 in. (167.64 cm) (R); Pain 8/10; 23:56 BP 138 / 83; Pulse 88; Resp 96; Pulse Ox 96% on R/A; zb 06/07 00:38 BP 108 / 68; Pulse 73; Resp 16 S; Pulse Ox 97% on R/A; bb 06/06 21:59 Body Mass Index 27.44 (77.11 kg, 167.64 cm) ca1 MDM: 06/06 22:34 Patient medically screened. pm1 22:39 ED course: patient refused chest x-ray. pm1 23:10 Data reviewed: vital signs. Data interpreted: Pulse oximetry: on room air is 98 %. pm1 Interpretation: normal. 06/07 00:15 ED course: Patient reports back pain is 0/10 with medications given in the ER. pm1 00:53 Counseling: I had a detailed discussion with the patient and/or guardian regarding: the pm1 historical points, exam findings, and any diagnostic results supporting the discharge/admit diagnosis, lab results, the need for outpatient follow up, to return to the emergency department if symptoms worsen or persist or if there are any questions or concerns that arise at home. 06/06 22:39 Order name: Flu pm1 06/06 22:39 Order name: Strep pm1 06/06 22:39 Order name: Group A Streptococcus Rapid Sc; Complete Time: 00:39 EDLA 06/06 23:20 Order name: Urine Dipstick--Ancillary (enter results); Complete Time: 00:10 2 06/07 00:10 Order name: Urine Microscopic Only; Complete Time: 00:53 pm1 06/07 00:21 Order name: COVID-19/FLU A+B; Complete Time: 00:23 EDMS 06/07 00:36 Order name: Throat Culture EDLA 06/07 00:50 Order name: Urine Culture [facility] 06/06 22:39 Order name: Droplet/Contact Precautions; Complete Time: 22:50 pm1 06/06 22:39 Order name: Labs collected and sent; Complete Time: 22:50 pm1 06/06 22:39 Order name: O2 Per Protocol; Complete Time: 22:50 pm1 06/06 22:39 Order name: Urine Dipstick-Ancillary (obtain specimen); Complete Time: 23:26 pm1 Administered Medications: 06/06 23:05 Drug: TORadol (ketorolac) 60 mg Route: IM; Site: left deltoid; zb 23:28 Follow up: Response: No adverse reaction zb 23:06 Drug: Lidoderm 5 % (700 mg/patch) 1 patches Route: Topical; Site: affected area; zb 23:06 Drug: [place] (HYDROcodone-acetaminophen) 10 mg-325 mg 1 tabs {Note: rass 0.} Route: PO; zb 06/07 01:05 Follow up: Response: No adverse reaction ea Disposition: 03:47 Co-signature as Attending Physician, Titus Beltran MD. [facility] Disposition: 06/07/20 00:54 Discharged to Home. Impression: Low back pain, Urinary tract infection, site not specified. - Condition is Stable. - Discharge Instructions: Back Pain, Adult, Urinary Tract Infection, Adult. - Prescriptions for Bactrim DS 800- 160 mg Oral Tablet - take 1 tablet by ORAL route every 12 hours for 10 days; 20 tablet. Tylenol- Codeine #3 300-30 mg Oral Tablet - take 2 tablets by ORAL route every 4-6 hours As needed; 20 tablet. Lidoderm 5 % Topical adhesive patch,medicated - apply 1 patch by TRANSDERMAL route once daily As needed 12 hours on and 12 hours off in a 24 hour period; 30 Transdermal Patch. - Medication Reconciliation Form, Thank You Letter, Antibiotic Education, Prescription Opioid Use form. - Follow up: Emergency Department; When: As needed; Reason: Worsening of condition. Follow up: Private Physician; When: 2 - 3 days; Reason: Recheck today's complaints, Continuance of care, Re-evaluation by your physician. - Problem is new. - Symptoms have improved. Signatures: Dispatcher [employer] [facility] Galileo Leyva NP FURNACE REPAIRER pm1 Susie Velazquez RN RN ea Acob, Cheryl RN TACHO [facility] Titus Beltran MD MD [facility] Yvrose Plata RN RN zb Corrections: (The following items were deleted from the chart) 06/06 22:51 22:40 CORONAVIRUS+MR.LAB.BRZ ordered. [facility] 23:37 22:39 Influenza Screen (A ordered. [facility] 23:37 22:39 CORONAVIRUS ordered. [facility] 23:43 23:42 Counseling: I had a detailed discussion with the patient and/or guardian pm1 regarding: the historical points, exam findings, and any diagnostic results supporting the discharge/admit diagnosis, lab results, radiology results, the need for outpatient follow up, to return to the emergency department if symptoms worsen or persist or if there are any questions or concerns that arise at home, pm1 06/07 00:04 06/06 23:21 URINE --ANCILLARY+UC.LAB.BRZ ordered. [facility] 06/07 01:05 00:54 06/07/2020 00:54 Discharged to Home. Impression: Low back pain; Urinary tract ea infection, site not specified. Condition is Stable. Forms are Medication Reconciliation Form, Thank You Letter, Antibiotic Education, Prescription Opioid Use. Follow up: Emergency Department; When: As needed; Reason: Worsening of condition. Follow up: Private Physician; When: 2 - 3 days; Reason: Recheck today's complaints, Continuance of care, Re-evaluation by your physician. Problem is new. Symptoms have improved. pm1
--- NOTE | 2020-06-07 00:55 | ER ---
Nurse's Notes [facility] Name: Mildred Caldwell Age: 44 yrs Sex: Female : 1975 Arrival Date: 06/06/2020 Time: 21:49 Bed 16 Private MD: Diagnosis: Low back pain;Urinary tract infection, site not specified Presentation: 06/06 21:59 Chief complaint: Patient states: Had a Moderna Covid Vaccine first dose on Sunday. ca1 Sunday was not feeling well and stayed in bed all day. Today going around the house. At 1900, feels difficulty breathing, feeling weak, headache, arms extremely sore. Coronavirus screen: Client denies travel out of the [place] in the last 14 days. difficulty breathing, Client presents with at least one sign or symptom that may indicate coronavirus-19. Standard/surgical mask placed on the client. Provider contacted for isolation considerations. Ebola Screen: Patient negative for fever greater than or equal to 101.5 degrees Fahrenheit, and additional compatible Ebola Virus Disease symptoms Patient denies exposure to infectious person. Patient denies travel to an Ebola-affected area in the 21 days before illness onset. No symptoms or risks identified at this time. Initial Sepsis Screen: Does the patient meet any 2 criteria? No. Patient's initial sepsis screen is negative. Does the patient have a suspected source of infection? No. Patient's initial sepsis screen is negative. Risk Assessment: Do you want to hurt yourself or someone else? Patient reports no desire to harm self or others. Onset of symptoms was June 06, 2020. 21:59 Method Of Arrival: Ambulatory ca1 21:59 Acuity: JENNIFER 3 ca1 Triage Assessment: 23:10 Headache History: Denies prior headaches. zb 23:10 Pain: Also complains of inability to perform activities of daily living. 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 - Social history:: Smoking status: Patient denies any tobacco usage or history of. Screenin:30 Abuse screen: Denies threats or abuse. Denies injuries from another. Nutritional zb screening: No deficits noted. Tuberculosis screening: No symptoms or risk factors identified. Fall Risk None identified. Assessment: 22:30 Reassessment: ecp at bedside. zb 23:08 General: Appears in no apparent distress. uncomfortable, Behavior is calm, anxious, zb Reports feeling ill for 1-2 days, fatigue for 1-2 days. Pain: Complains of pain in base of the skull and back Pain currently is 8 out of 10 on a pain scale. Neuro: Level of Consciousness is awake, alert, obeys commands, Oriented to person, place, time, situation, Moves all extremities. Full function Speech is normal. Cardiovascular: Heart tones S1 S2 present Patient's skin is warm and dry. Respiratory: Airway is patent Respiratory effort is even, unlabored, Respiratory pattern is regular, symmetrical. GI: Abdomen is round. : Reports incontinence, urinary frequency. Derm: Skin is intact, is healthy with good turgor, Skin is normal, Rash noted that is red, raised, on chest. Musculoskeletal: Range of motion: intact in all extremities. 06/07 00:10 Reassessment: Patient appears in no apparent distress at this time. Patient and/or zb family updated on plan of care and expected duration. Pain level reassessed. Patient is alert, oriented x 3, equal unlabored respirations, skin warm/dry/pink. Patient states feeling better. Patient states symptoms have improved. 00:39 Neuro: Level of Consciousness is awake, alert, obeys commands, Oriented to person, bb place, time, situation. Cardiovascular: Capillary refill < 3 seconds Patient's skin is warm and dry. Respiratory: Airway is patent Respiratory effort is even, unlabored, Respiratory pattern is regular. GI: No signs and/or symptoms were reported involving the gastrointestinal system. Derm: Skin is pink, warm \T\ dry. Musculoskeletal: Circulation, motion, and sensation intact. 01:04 Reassessment: Patient and/or family updated on plan of care and expected duration. Pain ea level reassessed. Patient is alert, oriented x 3, equal unlabored respirations, skin warm/dry/pink. Discharge instruction given to patient verbalized the understanding of instruction. Pt left ED ambulatory tolerating well. Patient states feeling better. Vital Signs: 06/06 21:59 BP 131 / 70; Pulse 107; Resp 19 S; Temp 99.6(TE); Pulse Ox 98% on R/A; Weight 77.11 kg ca1 (R); Height 5 ft. 6 in. (167.64 cm) (R); Pain 8/10; 23:56 BP 138 / 83; Pulse 88; Resp 96; Pulse Ox 96% on R/A; zb 06/07 00:38 BP 108 / 68; Pulse 73; Resp 16 S; Pulse Ox 97% on R/A; bb 06/06 21:59 Body Mass Index 27.44 (77.11 kg, 167.64 cm) ca1 ED Course: 06/06 21:49 Patient arrived in ED. bp1 22:02 Triage completed. ca1 22:02 Arm band placed on right wrist. ca1 22:06 Galileo Leyva NP is PHCP. pm1 22:06 Titus Beltran MD is Attending Physician. pm1 22:14 Yvrose Plata RN is Primary Nurse. zb 23:10 Patient has correct armband on for positive identification. Bed in low position. Call zb light in reach. Side rails up X 1. tv host on. Pulse ox on. NIBP on. Door closed. Noise minimized. 06/07 01:03 No provider procedures requiring assistance completed. Patient did not have IV access ea during this emergency room visit. Administered Medications: 06/06 23:05 Drug: TORadol (ketorolac) 60 mg Route: IM; Site: left deltoid; zb 23:28 Follow up: Response: No adverse reaction zb 23:06 Drug: Lidoderm 5 % (700 mg/patch) 1 patches Route: Topical; Site: affected area; zb 23:06 Drug: [place] (HYDROcodone-acetaminophen) 10 mg-325 mg 1 tabs {Note: rass 0.} Route: PO; zb 06/07 01:05 Follow up: Response: No adverse reaction ea Outcome: 00:54 Discharge ordered by . pm1 01:03 Discharged to home ambulatory, with family. ea 01:03 Condition: stable 01:03 Discharge instructions given to patient, Instructed on discharge instructions, follow up and referral plans. medication usage, Demonstrated understanding of instructions, follow-up care, medications, Prescriptions given X 3. 01:05 Patient left the ED. ea Signatures: Catherine Haile, RN RN bb Galileo Leyva, INSIGHTS MANAGER INSIGHTS MANAGER pm1 Susie Velazquez RN RN ea Acob, Cheryl RN RN ca1 Rosa Maria Dukes Zipporah, RN RN zb
[2020-06-07 01:24] VITALS: TEMP 99.6
[2020-06-07 01:27] VITALS: BP 108/68; O2SAT 97
[2020-06-08 14:49] LABS: Urine Blood Trace-intact (Negative); Urine Glucose Negative (Negative); Urine Protein Negative (Negative); Urine pH 6.5 (5.0-7.0)
== END 2020-06-07 01:05 | disposition home or self-care (01) ==
LOC: ER 21:45
DX: N39.0 Urinary tract infection, site not specified (principal); I10 Essential (primary) hypertension; Z20.822 Contact with and (suspected) exposure to COVID-19; Z88.5 Allergy status to narcotic agent; Z91.040 Latex allergy status; Z91.048 Other nonmedicinal substance allergy status
CPT/HCPCS: 87070; 87088; 87086; 87081; 81003; 81015; 0240U; 81025; 96372; 99284

== ENCOUNTER 2020-08-21 13:15 | Emergency (ER) | payer OTHER ==
--- OUTSIDE RECORDS SUMMARY | 2020-08-21 14:41 | XMS REPORT | Continuity of Care Document ---
:1975 Author Organization [facility] t Address [address] [place] [address] Care Team Providers Name Role Phone Doctor Unassigned, Name Attending Clinician Unavailable Dorcas MESA Attending Clinician JACKIE Attending Clinician Unavailable LUIS MIGUEL Attending Clinician Unavailable JESUS MANUEL Attending Clinician Unavailable Shawna Montenegro PA-C Attending Clinician Navjot NUÑEZ Attending Clinician Unavailable JANETH Attending Clinician Unavailable Navjot NUÑEZ Admitting Clinician Unavailable Payers Payer Name Policy Type Policy Number Effective Date Expiration Date S ource Problems Condition Condition Condition Status Onset Resolution Last Treating Co mments Source Name Details Category Date Date Treatment Clinician Date Pain, Pain, Diagnosis Active [facility] [...] [facility] [place] [facility] Lumbar Lumbar Problem Active [facility] [place] [facility] Allergies, Adverse Reactions, Alerts Allergy Allergy Status Severity Reaction(s) Onset Inactive Treating Comm ents Source Name Type Date Date Clinician No Known DA Active U 2019-02 [facility] 03-27 [facility] Medications Ordered Filled Start Stop Current Ordering Indication Dosage Frequency Signature Comments Components Source Medication Medication Date Date Medication? Clinician (SIG) Name Name Tylenol # 3 Tylenol # 3 Yes Jerod Puente [facility] Procedures Procedure Date / Time Performed Performing Clinician Sourc e XRAY Spine Thoracic 2020-03-08 00:00:00 [facility] 4+ views [id number] Spine lumbar wo 2020-03-08 00:00:00 [facility] contrast [id number] Physicians MRI Spine thoracic wo 2020-03-08 00:00:00 [facility] contrast [id number] Physicians Encounters Start End Encounter Admission Attending Care Care Encounter Source Date/Time Date/Time Type Type Clinicians Facility Department ID 2016-12-[address] [facility] [id number] H arris 19:13:58 [facility] 2016-11-[address] [facility] [id number] H arris 15:22:01 [facility] 2016-11-[address] [facility] [id number] H arris 01:48:38 [facility] 2016-11-[address] [facility] [id number] H arris 01:48:30 [facility] 2016-11-20 Inpatient [facility] [id number] H arris 05:55:00 [facility] 2020-08-19 2020-08-19 Orders Doctor BRYAN [id number] 00:00:00 00:00:00 Only Unassigned, KAIT [id number] [place] [facility] [id number] [facility] 2020-08-12 2020-08-12 Case Dorcas IDANKIT [id number] 00:00:00 00:00:00 Management Kaisa Flaherty [id number] Jeremie [id number] Professino [id number] [address] 2020-07-26 2020-07-26 Office AILYN Toscano [id number] 14:43:48 15:35:48 Visit Kasia Flaherty [id number] Jeremie [id number] Professio [phone] [address] 2020-07-26 2020-07-26 Orders Doctor BRYAN [id number] 00:00:00 00:00:00 Only UnassignedKAIT [id number] [facility] [id number] [id number] 2020-07-26 2020-07-26 [facility] 1.2.840.114 [id number] 00:00:00 00:00:00 Kasia Krystina [id number] [facility] [id number] Professio [phone] nal [address] [place] [address] 2020-07-06 2020-07-[address] 05:25:00 05:25:00 [facility] 2020-06-30 2020-06-30 Orders Doctor BRYAN [id number] 00:00:00 00:00:[id number] [facility] [id number] [id number] 2020-06-18 2020-06-18 [id number] 00:00:00 00:00:00 KADE 944 [address] 2020-06-18 2020-06-18 [facility] [id number] 00:00:00 00:00:00 KADE [address] 2020-06-10 2020-06-10 [facility] [id number] 00:00:00 00:00:[address] KADE [address] 2020-06-10 2020-06-10 [facility] [id number] 00:00:00 00:00:00 KADE [address] 2020-06-10 2020-06-10 [facility] [id number] 00:00:00 00:00:00 KADE [address] 2020-06-10 2020-06-10 Outpatient JACKIE [facility] [id number] 00:00:00 00:00:00 KADE [address] 2020-03-08 2020-03-08 Appointmen ANTON BOLANOS [facility] [id number] [facility] 08:30:00 08:30:00 t; Albina VILLAFUERTE AJAI, Physici M.D. ans 2020-01-29 2020-01-29 Outpatient JACKIE [facility] [id number] 00:00:00 00:00:00 KADE [address] 2020-01-29 2020-01-29 Outpatient JACKIE [facility] [id number] 00:00:00 00:00:00 KADE [address] 2019-11-05 2019-11-05 Outpatient [facility] [id number] 05:21:00 05:21:00 [facility] 2019-10-07 2019-10-07 Outpatient [facility] [id number] 09:00:00 09:00:00 [facility] 2019-09-09 2019-09-09 Outpatient JACKIE [facility] [id number] 00:00:00 00:00:00 KADE [address] 2019-09-09 2019-09-09 Outpatient JACKIE [facility] [id number] 00:00:00 00:00:00 KADE [address] 2019-09-09 2019-09-09 Outpatient JACKIE [facility] [id number] 00:00:00 00:00:00 KADE [address] 2019-09-01 2019-09-01 Outpatient JACKIE [facility] [id number] 00:00:00 00:00:00 KADE [address] 2019-09-01 2019-09-01 Outpatient JACKIE [facility] [id number] 00:00:00 00:00:00 KADE [address] 2019-01-01 2019-01-01 Appointmen ANTON KEN [facility] [id number] Univers 14:00:00 14:00:00 t; BREANA KEN M.D. [facility] [place] [facility] 2018-10-04 2018-10-04 Office CELE Montenegro [id number] 09:32:10 10:24:11 Visit Tianna AMBULATOR [id number] Shawna Gómez [id number] [id number] 2018-07-17 2018-07-17 AppointCIELO Alonso, [facility] [id number] Univers 11:00:00 11:00:00 t; Albina FOWLER ity of Albina BU[facility] 2018-04-03 2018-04-[address] [facility] [id number] [place] 00:00:00 00:00:00 Health 2018-03-12 2018-03-12 [facility] [id number] 13:30:00 13:30:00 [facility] 2018-01-09 2018-01-[address] [facility] [id number] [place] 00:00:00 00:00:00 Health 2017-12-26 2017-12-[address] [facility] [id number] [place] 00:00:00 00:00:00 [facility] 2017-12-25 2017-12-[address] [facility] [id number] [place] 00:00:00 00:00:00 Health 2017-11-21 2017-11-[address] [facility] [id number] [place] 12:12:10 12:12:10 [facility] 2017-11-19 2017-11-19 [facility] [id number] 09:00:00 09:00:00 t [facility] 2017-11-16 2017-11-[address] [facility] [id number] [place] 08:30:23 08:30:23 Health 2017-11-12 2017-11-12 [facility] [id number] 14:22:00 14:22:00 t [facility] 2017-11-12 2017-11-[address] [facility] [id number] [place] 00:00:00 00:00:00 Health 2017-11-08 2017-11-[address] [facility] [id number] [place] 00:00:00 00:00:00 [facility] 2017-11-05 2017-11-05 [facility] [id number] 10:03:00 10:03:00 t [facility] 2017-10-29 2017-10-29 [facility] [id number] 08:00:00 08:00:00 t [facility] 2017-10-11 2017-10-[address] [facility] [id number] [place] 09:34:54 09:34:54 [facility] 2017-10-10 2017-10-[address] [facility] [id number] [place] 00:00:00 00:00:00 [facility] 2017-10-03 2017-10-[address] [facility] [id number] [place] 00:00:00 00:00:00 [facility] 2017-09-28 2017-09-28 Outpatient [facility] [id number] [place] 06:43:36 06:43:36 [facility] 2017-09-28 2017-09-[address] [facility] [id number] [place] 00:00:00 00:00:00 [facility] 2017-09-28 2017-09-[address] [facility] [id number] [place] 00:00:00 00:00:00 [facility] 2017-09-26 2017-09-[address] [facility] [id number] [place] 13:42:42 13:42:42 [facility] 2017-09-26 2017-09-[address] [facility] [id number] [place] 00:00:00 00:00:00 [facility] 2017-09-21 2017-09-[address] [facility] [id number] [place] 00:00:00 00:00:00 [facility] 2017-09-19 2017-09-[address] [facility] [id number] [place] 14:50:01 14:50:01 [facility] 2017-09-19 2017-09-[address] [facility] [id number] [place] 13:16:35 13:16:35 [facility] 2017-09-12 2017-09-[address] [facility] [id number] [place] 00:00:00 00:00:00 [facility] 2017-08-24 2017-08-[address] [facility] [id number] [place] 09:22:38 09:22:38 [facility] 2017-07-27 2017-07-[address] [facility] [id number] [place] 10:35:47 10:35:47 [facility] 2017-07-05 2017-07-[address] [facility] [id number] [place] 12:15:23 12:15:23 [facility] 2017-07-03 2017-07-[address] [facility] [id number] [place] 00:00:00 00:00:00 [facility] 2017-05-23 2017-05-[address] [facility] [id number] [place] 13:13:44 13:13:44 [facility] 2017-05-02 2017-05-[address] [facility] [id number] [place] 00:00:00 00:00:00 [facility] 2017-04-25 2017-04-[address] [facility] [id number] [place] 09:01:53 09:01:53 [facility] 2017-04-17 2017-04-17 Outpatient [facility] [id number] [place] 06:05:00 06:05:00 [facility] 2017-04-17 2017-04-[address] [facility] [id number] [place] 00:00:00 00:00:00 [facility] 2017-04-16 2017-04-[address] [facility] [id number] [place] 00:00:00 00:00:00 [facility] 2017-04-13 2017-04-[address] [facility] [id number] [place] 09:12:04 09:12:04 [facility] 2017-04-03 2017-04-[address] [facility] [id number] [place] 00:00:00 00:00:00 [facility] 2017-03-27 2017-03-27 Outpatient [facility] [id number] [place] 06:15:00 06:15:00 [facility] 2017-03-27 2017-03-[address] [facility] [id number] [place] 00:00:00 00:00:00 [facility] 2017-03-19 2017-03-[address] [facility] [id number] [place] 13:22:16 13:22:16 [facility] 2017-03-19 2017-03-[address] [facility] [id number] [place] 00:00:00 00:00:00 [facility] 2017-03-12 2017-03-[address] [facility] [id number] [place] 13:45:55 13:45:55 [facility] 2017-03-09 2017-03-[address] [facility] [id number] [place] 00:00:00 00:00:00 [facility] 2017-03-08 2017-03-[address] [facility] [id number] [place] 16:03:22 16:03:22 [facility] 2017-03-08 2017-03-[address] [facility] [id number] [place] 14:45:05 14:45:05 [facility] 2017-02-23 2017-02-[address] [facility] [id number] [place] 10:41:02 10:41:02 [facility] 2017-02-23 2017-02-[address] [facility] [id number] [place] 08:11:53 08:11:53 [facility] 2017-02-23 2017-02-[address] [facility] [id number] [place] 07:53:43 07:53:43 [facility] 2017-02-23 2017-02-23 Outpatient [facility] [id number] [place] 00:00:00 00:00:00 [facility] 2017-02-08 2017-02-[address] [facility] [id number] [place] 12:32:00 12:32:00 [facility] 2017-01-24 2017-01-[address] [facility] [id number] [place] 00:00:00 00:00:00 [facility] 2017-01-23 2017-01-[address] [facility] [id number] [place] 12:16:30 12:16:30 [facility] 2017-01-22 2017-01-[address] [facility] [id number] [place] 11:30:20 11:30:20 [facility] 2017-01-15 2017-01-[address] [facility] [id number] [place] 00:00:00 00:00:00 [facility] 2017-01-09 2017-01-[address] [facility] [id number] [place] 09:09:26 09:09:26 [facility] 2017-01-04 2017-01-[address] [facility] [id number] [place] 14:36:02 14:36:02 [facility] 2017-01-02 2017-01-[address] [facility] [id number] [place] 08:36:10 08:36:10 [facility] 2016-12-27 2016-12-[address] [facility] [id number] [place] 11:33:15 11:33:15 [facility] 2016-12-22 2016-12-[address] [facility] [id number] [place] 09:02:45 09:02:45 [facility] 2016-12-11 2016-12-[address] [facility] [id number] [place] 09:01:19 09:01:19 [facility] 2016-12-11 2016-12-11 Inpatient [facility] [id number] [place] 14:16:44 00:00:00 [facility] 2016-12-07 2016-12-[address] [facility] [id number] [place] 00:00:00 00:00:00 [facility] 2016-12-06 2016-12-[address] [facility] [id number] [place] 14:40:31 14:40:31 [facility] 2016-12-04 2016-12-[address] [facility] [id number] [place] 10:31:01 10:31:01 [facility] 2016-11-27 2016-11-[address] [facility] [id number] [place] 00:00:00 00:00:00 [facility] 2016-11-20 2016-11-[address] [facility] [id number] [place] 00:00:00 00:00:00 [facility] 2016-11-20 2016-11-[address] [facility] [id number] [place] 00:00:00 00:00:00 [facility] 2016-11-17 2016-11-[address] [facility] [id number] [place] 00:00:00 00:00:00 [facility] 2016-10-12 2016-10-[address] [facility] [id number] [place] 00:00:00 00:00:00 [facility] 2016-10-10 2016-10-[address] [facility] [id number] [place] 00:00:00 00:00:00 [facility] 2016-10-10 2016-10-[address] [facility] [id number] [place] 00:00:00 00:00:00 [facility] 2016-10-10 2016-10-[address] [facility] [id number] [place] 00:00:00 00:00:00 [facility] 2016-09-15 2016-09-[address] [facility] [id number] [place] 00:00:00 00:00:00 [facility] 2016-08-30 2016-08-[address] [facility] [id number] [place] 09:44:27 09:44:27 Health Results Test Test Test Results Result Source Description Time Comments Comments MRI Spine 2020-03- EXAM: Spine Thoracic wo [facility] 05 contrast MRIDATE: 03/26/2020 [place] contrast [id number] 14:45:00 14:47 CSTINDICATION: Physicians -Mid back painCOMPARISON: [...] [facility] Thoracic 4+ 05 VIEWSDATE: 03/26/2020 13:31 [place] [facility] [id number] 13:45:00 CSTINDICATION: - M54.9 Physicians Dorsalgia, unspecifiedCOMPARISON: [...] Spine lumbar 2020-03- EXAM: CT LUMBAR SPINE [facility] contrast 05 [place]DATE[place] [id number] 13:31:00 03/26/2020 13:35 Physicians CSTINDICATION: M54.5 Low [...] thesubarticular zone.--This report was dictated by a Debeader/Fellow/Physician Pilot Manager. Ihave personallyreviewed the images as well as the interpretation and agree with the findings.Read by: Linus Argueta MD Resident/Fellow/PhysicianA ssistant: Linus Argueta MDDictated Date/time: 03/26/20 14:06Electronically Signed by: Vinh hOara MD 03/29/2112:46FINAL REPORT MRI Spine thoracic wo contrast [id number] 2020-03-26 13:30:00 Test Item Value Reference Range Interpretation Comme nts Spine thoracic wo contrast MRI (test code = Cancel Reason: Duplicat e Order Spine thoracic wo contrast MRI) [facility] [id number] 15:56:00Surgical Pathology Report Case: [id number] Authorizing Provider: Mai Nuñez MD Collected: 08/14/2018 1452 Ordering Location: [facility] Endoscopy Received: 08/15/2018 0833 Services [...] LYMPHOCYTES(SEE COMMENT) Signing Pathologist Direct Phone Line: [phone] signed by Elsy Collier MD on 08/19/2018 [...] including lymphocytic colitis. Clinical correlation is recommended. 99705 X 4, [id number] abdominal pain, LLQ abdominal pain A. Duodenum [...] areevaluated Immunohistochemistry technical testing was performed at [facility], Pathology Laboratory where it was [...] complexity clinical laboratory testing.RAD, ABDOMEN/KUB, 1 VIEW [id number] 16:12:00Reason for Exam:->epigastric abdominal painReason for Exam:->constipation, unspecified constipation typeFINAL REPORT Exam: Abdominal radiograph History: Constipation Comparison: None. Findings: Nonobstructive bowel gas pattern. Mild amount retained stool. Multiple surgical clips. Impression: No acute osseous abnormality Mild amount of retained stool Signed: Luisito Shafer MDReport Verified Date/Time: 04/16/2018 16:12:35
--- NOTE | 2020-08-21 15:53 | ER ---
Nurse's Notes [facility] Name: Mildred Caldwell Age: 44 yrs Sex: Female : 1975 Arrival Date: 08/21/2020 Time: 13:17 Bed 20 Private MD: Diagnosis: Presentation: 08/21 13:44 Chief complaint: Patient states: Back pain starting around 12:30. Pt stated, "I bent kg down to pick something up and my back went out and I almost fell around 12:30.". Coronavirus screen: Client denies travel out of the [place] in the last 14 days. At this time, unable to obtain information related to travel outside the [place] At this time, the client does not indicate any symptoms associated with coronavirus-19. Ebola Screen: Patient negative for fever greater than or equal to 101.5 degrees Fahrenheit, and additional compatible Ebola Virus Disease symptoms Patient denies exposure to infectious person. Patient denies travel to an Ebola-affected area in the 21 days before illness onset. Initial Sepsis Screen: Does the patient meet any 2 criteria? No. Patient's initial sepsis screen is negative. Does the patient have a suspected source of infection? No. Patient's initial sepsis screen is negative. Risk Assessment: Do you want to hurt yourself or someone else? Patient reports no desire to harm self or others. Onset of symptoms was August 21, 2020 at 12:30. 13:44 Method Of Arrival: Ambulatory kg 13:44 Acuity: JENNIFER 4 kg Triage Assessment: 13:47 General: Appears in no apparent distress. Behavior is calm, cooperative, appropriate kg for age, quiet. Pain: Complains of pain in back. SHANK BONER: 13:51 LMP N/A - Hysterectomy kg Historical: - Allergies: 13:48 Latex, Natural Rubber; kg 13:48 Morphine; kg - Home Meds: 13:49 promethazine 25 mg Oral tab 1 tab once daily [Active]; kg - PMHx: 13:48 Chronic pain; Hypertension; kg - PSHx: 13:48 neck; back; left shoulder; left foot sx; kg 13:51 hysterectomy; kg - Immunization history:: Adult Immunizations not up to date, Client reports receiving the 2nd dose of the Covid vaccine. - Social history:: Smoking status: Patient denies any tobacco usage or history of. Patient uses alcohol, occasionally. Screenin:47 Abuse screen: Denies threats or abuse. Denies injuries from another. Nutritional kg screening: No deficits noted. Tuberculosis screening: No symptoms or risk factors identified. Fall Risk None identified. No fall in past 12 months (0 pts). Secondary diagnosis (15 points) impaired mobility, No IV (0 pts). Ambulatory Aid- None/Bed Rest/Nurse Assist (0 pts). Gait- Normal/Bed Rest/Wheelchair (0 pts) Mental Status- Oriented to own ability (0 pts). Total Castaneda Fall Scale indicates No Risk (0-24 pts). Vital Signs: 13:44 BP 107 / 92; Pulse 72; Resp 20 S; Temp 99.1(O); Pulse Ox 100% on R/A; Weight 77.11 kg kg (R); Height 5 ft. 6 in. (167.64 cm) (R); Pain 8/10; 13:44 Body Mass Index 27.44 (77.11 kg, 167.64 cm) kg ED Course: 13:17 Patient arrived in ED. ds1 13:47 Triage completed. kg 13:49 Patient has correct armband on for positive identification. kg 15:53 Tre Charles MD is Attending Physician. kg Administered Medications: No medications were administered Outcome: 15:53 Patient left the ED. kg Signatures: Emma Bledsoe ds1 Cristine Willis, RN RN kg Corrections: (The following items were deleted from the chart) 13:50 13:48 Allergies: Codeine; kg kg
[2020-08-21 16:26] VITALS: BP 107/92; TEMP 99.1; O2SAT 100
== END 2020-08-21 15:53 | disposition left against medical advice (07) ==
LOC: ER 13:15
DX: Z53.21 Procedure and treatment not carried out due to patient leaving prior to being seen by health care provider (principal)
CPT/HCPCS: 99281

== ENCOUNTER 2020-11-08 07:52 | Emergency (ER) | payer OTHER ==
[2020-11-08] MEDS ORDERED: LIDOCAINE 4% PATCH ONE (09:03)
[2020-11-08] MEDS ORDERED: KETOROLAC 30 MG/ML INJ ONE (09:03)
--- NOTE | 2020-11-08 09:27 | EDPHYS ---
Physician Documentation [facility] Name: Mildred Caldwell Age: 44 yrs Sex: Female : 1975 Arrival Date: 11/08/2020 Time: 07:54 Bed 11 Private MD: ED Physician Peng Jackson HPI: 11/08 08:14 This 44 yrs old Female presents to ER via Ambulatory with complaints of Back cp Pain. 08:14 The patient presents with pain that is acute. The symptoms are located in the low back. cp 08:15 Onset: The symptoms/episode began/occurred yesterday. cp 08:15 The pain radiates to the lower abdomen. Associated signs and symptoms: Pertinent cp positives: abdominal pain, Pertinent negatives: chest pain, constipation, dysuria, fever, incontinence, numbness, urinary retention, weakness. 08:15 The problem was sustained started after reaching to turn shower off yesterday. cp 08:15 Severity of symptoms: in the emergency department the symptoms are unchanged, despite cp home interventions. DAMPPROOFER: 08:03 LMP N/A - Hysterectomy jl7 Historical: - Allergies: 08:03 Latex, Natural Rubber; jl7 08:03 Morphine; jl7 - Home Meds: 08:03 losartan oral [Active]; Metformin Oral [Active]; jl7 09:13 promethazine 25 mg Oral tab 1 tab once daily [Active]; oh - PMHx: 08:03 Chronic pain; Hypertension; Diabetes mellitus; jl7 - PSHx: 08:03 back; hysterectomy; left foot sx; left shoulder; neck; jl7 - Immunization history:: Adult Immunizations up to date. - Social history:: Smoking status: Patient denies any tobacco usage or history of. ROS: 08:20 Back: Positive for pain at rest, pain with movement, of the low back area. cp 08:20 Eyes: Negative for injury, pain, redness, and discharge. cp 08:20 Constitutional: Negative for body aches, chills, fever, poor PO intake. 08:20 Cardiovascular: Negative for chest pain, palpitations. 08:20 Respiratory: Negative for cough, shortness of breath, wheezing. 08:20 Abdomen/GI: Positive for radiating pain to lower abdomen, Negative for vomiting, diarrhea, constipation, anorexia, black/tarry stool, rectal bleeding, bowel incontinence. 08:20 : Negative for urinary symptoms, difficulty urinating, bladder incontinence. 08:20 Neuro: Negative for numbness, tingling, weakness. 08:20 All other systems are negative. Exam: 08:25 Head/Face: Normocephalic, atraumatic. cp 08:25 Constitutional: The patient appears in no acute distress, alert, awake, non-toxic, well developed, well nourished. 08:25 Eyes: Periorbital structures: appear normal, Conjunctiva: normal, no exudate, no injection, Sclera: no appreciated abnormality, Lids and lashes: appear normal, bilaterally. 08:25 Neck: ROM/movement: is normal, is supple, without pain, no range of motions limitations.cp 08:25 Chest/axilla: Inspection: normal. 08:25 Cardiovascular: Rate: normal. 08:25 Respiratory: the patient does not display signs of respiratory distress, Respirations: normal, no use of accessory muscles, no retractions. 08:25 Abdomen/GI: Exam negative for discomfort, distension, guarding, Inspection: abdomen appears normal. 08:25 Back: pain, that is moderate, of the low back area, ROM is painful, with all movement. 08:25 Neuro: Motor: moves all fours, strength is normal, Sensation: is normal, Gait: is steady. Vital Signs: 08:01 BP 138 / 98; Pulse 75; Resp 17; Temp 98.6; Pulse Ox 100% ; Weight 72.57 kg; Height 5 jl7 ft. 5 in. (165.10 cm); Pain 8/10; 09:44 BP 139 / 88; Pulse 75; Resp 16; Pulse Ox 100% on R/A; oh 08:01 Body Mass Index 26.63 (72.57 kg, 165.10 cm) jl7 MDM: 08:06 Patient medically screened. cp 08:30 Differential diagnosis: chronic back pain, Pyelonephritis ruptured disc, cp Ureterolithiasis sciatica, spinal stenosis, cauda equina. 09:25 Data reviewed: vital signs, nurses notes, lab test result(s). cp 09:25 Counseling: I had a detailed discussion with the patient and/or guardian regarding: the cp historical points, exam findings, and any diagnostic results supporting the discharge/admit diagnosis, lab results, the need for outpatient follow up, for definitive care, a family practitioner, to return to the emergency department if symptoms worsen or persist or if there are any questions or concerns that arise at home. Response to treatment: the patient's symptoms have markedly improved after treatment, VSS. Pain improved with meds. Will discharge to home for continued monitoring. 11/08 08:06 Order name: Urine Microscopic Only; Complete Time: 09:40 cp 11/08 09:40 Interpretation: Normal except: URBC 5-10; CAOX MODERATE. cp 11/08 08:06 Order name: Urine Dipstick-Ancillary (obtain specimen); Complete Time: 08:34 cp 11/08 08:06 Order name: Urine Test (obtain specimen); Complete Time: 08:34 cp Administered Medications: 08:46 Drug: Lidoderm Patch 5 % (700 mg/patch) 1 patches Route: Topical; Site: affected area; oh 08:46 Drug: Ketorolac 30 mg Route: IM; Site: right deltoid; oh 09:37 Follow up: Response: No adverse reaction oh Point of Care Testing: Urine : 08:34 hCG Reading: Negative; oh Urine Dip: 08:34 pH: 5.5; ; Specific [place]: 1.030; Ketones: Trace; Glucose: Negative; Protein: oh Negative; Leukocytes: Negative; Nitrite: Negative (-) ; Blood: Negative; Disposition: 09:59 Co-signature as Attending Physician, Peng Jackson MD I agree with the assessment and rn plan of care. Attestation: The patient's history, exam findings, diagnostics, and a summary of any interventions or procedures was reviewed in detail with Yan BLAND. Disposition Summary: 11/08/20 09:26 Discharge Ordered Location: Home cp Problem: new cp Symptoms: have improved cp Condition: Stable cp Diagnosis - Low back pain cp Followup: cp - With: Private Physician - When: 2 - 3 days - Reason: Recheck today's complaints Discharge Instructions: - Discharge Summary Sheet cp - Acute Back Pain, Adult cp - Heat Therapy cp - Back Exercises cp Forms: - Medication Reconciliation Form cp - Thank You Letter cp - Antibiotic Education cp - Prescription Opioid Use cp Prescriptions: - Diclofenac Sodium 75 mg Oral Tablet Sustained Release - take 1 tablet by ORAL route 2 times per day; 30 tablet; Refills: 0, Product cp Selection Permitted - Lidoderm 5 % Topical adhesive patch,medicated - apply 1 patch by TOPICAL route once daily As needed; 1 box; Refills: 0, Product cp Selection Permitted - orphenadrine citrate 100 mg Oral Tablet Sustained Release - take 1 tablet by ORAL route 2 times per day As needed; 20 tablet; Refills: 0, cp Product Selection Permitted Signatures: Dispatcher [employer] Peng Ivy MD MD rn Yan Taylor PA PA cp Leal, Jahala RN RN jl7 Dudley Keyes RN RN oh
--- NOTE | 2020-11-08 09:27 | ER ---
Nurse's Notes [facility] Name: Mildred Caldwell Age: 44 yrs Sex: Female : 1975 Arrival Date: 11/08/2020 Time: 07:54 Bed 11 Private MD: Diagnosis: Low back pain Presentation: 11/08 08:01 Chief complaint: Patient states: Low back pain since yesterday, radiates around to jl7 pelvis, reports quickly reaching to turn off shower when pain started. Coronavirus screen: Vaccine status: Patient reports receiving the 2nd dose of the covid vaccine. Date June 2020 Moderna. Ebola Screen: No symptoms or risks identified at this time. Initial Sepsis Screen: Does the patient meet any 2 criteria? No. Patient's initial sepsis screen is negative. Does the patient have a suspected source of infection? No. Patient's initial sepsis screen is negative. Risk Assessment: Do you want to hurt yourself or someone else? Patient reports no desire to harm self or others. Onset of symptoms was November 07, 2020. 08:01 Method Of Arrival: Ambulatory [facility] 08:01 Acuity: JENNIFER 4 jl7 Triage Assessment: 08:03 General: Appears in no apparent distress. uncomfortable, Behavior is calm, cooperative, jl7 appropriate for age. Pain: Complains of pain in low back area Pain currently is 8 out of 10 on a pain scale. Musculoskeletal: Range of motion: reports pain with sitting. 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 - Social history:: Smoking status: Patient denies any tobacco usage or history of. Screenin:12 Abuse screen: Denies threats or abuse. Nutritional screening: No deficits noted. oh Tuberculosis screening: No symptoms or risk factors identified. Fall Risk None identified. Assessment: 08:09 General: Appears uncomfortable, Behavior is calm, cooperative, appropriate for age, oh Reports pain to lower back, pelvic pain radiating to left leg. Pain: Complains of pain in lower back, pelvic pain radiating to left leg. Neuro: No deficits noted. Cardiovascular: No deficits noted. Respiratory: No deficits noted. GI: No deficits noted. : No deficits noted. EENT: No deficits noted. Derm: No deficits noted. Musculoskeletal: Reports pain in low back area, pelvic area radiating to left leg. Vital Signs: 08:01 BP 138 / 98; Pulse 75; Resp 17; Temp 98.6; Pulse Ox 100% ; Weight 72.57 kg; Height 5 jl7 ft. 5 in. (165.10 cm); Pain 8/10; 09:44 BP 139 / 88; Pulse 75; Resp 16; Pulse Ox 100% on R/A; oh 08:01 Body Mass Index 26.63 (72.57 kg, 165.10 cm) jl7 ED Course: 07:54 Patient arrived in ED. rg4 08:03 Triage completed. jl7 08:03 Arm band placed on right wrist. jl7 08:05 Yan Taylor PA is PHCP. cp 08:05 Peng Jackson MD is Attending Physician. cp 08:12 Call light in reach. oh 08:34 Urine Microscopic Only Sent. oh 09:44 No provider procedures requiring assistance completed. oh 09:45 Patient did not have IV access during this emergency room visit. oh Administered Medications: 08:46 Drug: Lidoderm Patch 5 % (700 mg/patch) 1 patches Route: Topical; Site: affected area; oh 08:46 Drug: Ketorolac 30 mg Route: IM; Site: right deltoid; oh 09:37 Follow up: Response: No adverse reaction oh Point of Care Testing: Urine : 08:34 hCG Reading: Negative; oh Urine Dip: 08:34 pH: 5.5; ; Specific [place]: 1.030; Ketones: Trace; Glucose: Negative; Protein: oh Negative; Leukocytes: Negative; Nitrite: Negative (-) ; Blood: Negative; Outcome: 09:26 Discharge ordered by . cp 09:45 Discharged to home ambulatory. oh 09:45 Condition: improved 09:45 Discharge instructions given to patient. 09:46 Patient left the ED. oh Signatures: Yan Taylor PA PA cp Garcia, Rubi rg4 Carol Gruber, RN RN jl7 Dudley Keyes, RN RN oh
[2020-11-08 09:35] LABS: Calcium Oxalate Crystals- Ur MODERATE (NONE SEEN); Urine Bacteria <20 /HPF (<20)
[2020-11-08 10:04] VITALS: TEMP 98.6; O2SAT 100
[2020-11-08 10:05] VITALS: BP 139/88
[2020-11-10 15:54] LABS: Urine Blood Negative (Negative); Urine Glucose Negative (Negative); Urine Protein Negative (Negative); Urine Specific Gravity >=1.030 (1.005-1.030); Urine pH 5.5 (5.0-7.0)
== END 2020-11-08 09:46 | disposition home or self-care (01) ==
LOC: ER 07:52
DX: M54.5 Low back pain (principal); I10 Essential (primary) hypertension; E11.9 Type 2 diabetes mellitus without complications; Z88.5 Allergy status to narcotic agent; Z91.048 Other nonmedicinal substance allergy status; Z91.040 Latex allergy status
CPT/HCPCS: 81003; 81015; 96372; 99283

== ENCOUNTER 2020-11-13 10:28 | Emergency (ER) | payer OTHER ==
[2020-11-13 11:36] LABS: Urine Blood Negative (Negative); Urine Glucose Negative (Negative); Urine Protein Negative (Negative); Urine Specific Gravity 1.025 (1.005-1.030)
--- NOTE | 2020-11-13 11:48 | RAD REPORT ---
EXAM DESCRIPTION: CT - Head Brain Wo Cont - 11/13/2020 11:42 am CLINICAL HISTORY: DIZZINESS Headache, drowsiness COMPARISON: Head Brain Wo Cont dated 12/09/2019; Head Brain Wo Cont dated 07/11/2018 TECHNIQUE: All CT scans are performed using dose optimization technique as appropriate and may inclu de automated exposure control or mA/KV adjustment according to patient size. FINDINGS: No intracranial hemorrhage, hydrocephalus or extra-axial fluid collection.Left temporal fo ssa CSF density collection is unchanged.No areas of brain edema or evidence of midline shift. The paranasal sinuses and mastoids are clear. The calvarium is intact. IMPRESSION: No acute intracranial abnormality.
[2020-11-13] MEDS ORDERED: MECLIZINE HCL 12.5 MG TAB ONE (11:51)
[2020-11-13] MEDS ORDERED: NA CHLORIDE 0.9% 1,000 ML ONE (11:51)
[2020-11-13 12:15] LABS: Absolute Lymphocytes (CBC) 1.5 K/uL (0.7-4.9); Basophils % 0.6 % (0-1.3); Hematocrit 41.1 % (36.0-45.0); MPV 8.6 fL (7.6-11.3); RBC Red Blood Cell Count 4.84 M/uL (3.86-4.86)
[2020-11-13 12:41] LABS: ALT/SGPT 22 U/L (12-78); AST/SGOT 12 U/L (15-37); Albumin 3.7 g/dL (3.4-5.0); Alkaline Phosphatase 82 U/L (45-117); BUN Blood Urea Nitrogen 13 mg/dL (7-18); Bicarbonate 26 mmol/L (21-32); Bilirubin Direct < 0.1 mg/dL (0-0.2); Bilirubin Total 0.3 mg/dL (0.2-1.0); Glucose Level 93 mg/dL (74-106); Lipase 86 U/L (73-393); Potassium 3.7 mmol/L (3.5-5.1); Protein, Total 7.1 g/dL (6.4-8.2); Sodium Level 142 mmol/L (136-145)
--- NOTE | 2020-11-13 13:33 | ER ---
Nurse's Notes [facility] Name: Mildred Caldwell Age: 44 yrs Sex: Female : 1975 Arrival Date: 11/13/2020 Time: 10:30 Bed 24 Private MD: Shahida Ramey Diagnosis: Other peripheral vertigo Presentation: 11/13 10:43 Chief complaint: Patient states: Dizziness since 0845 last night. Worse with movements. ll1 Slight nausea. Coronavirus screen: Vaccine status: Patient reports receiving the 2nd dose of the covid vaccine. Client denies travel out of the [place] in the last 14 days. At this time, the client does not indicate any symptoms associated with coronavirus-19. Ebola Screen: Patient denies travel to an Ebola-affected area in the 21 days before illness onset. Initial Sepsis Screen: Does the patient meet any 2 criteria? No. Patient's initial sepsis screen is negative. Does the patient have a suspected source of infection? No. Patient's initial sepsis screen is negative. Risk Assessment: Do you want to hurt yourself or someone else? Patient reports no desire to harm self or others. Onset of symptoms was November 12, 2020. 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 - Social history:: Smoking status: Patient denies any tobacco usage or history of. - Family history:: not pertinent. Screenin:03 Abuse screen: Denies threats or abuse. Nutritional screening: No deficits noted. oh Tuberculosis screening: No symptoms or risk factors identified. Fall Risk Gait-. Assessment: 12:02 General: Appears in no apparent distress. Behavior is calm, cooperative, appropriate oh for age, Reports dizziness, room spinning, hx of vertigo episode. Pain: Denies pain. Vital Signs: 10:43 BP 137 / 91; Pulse 83; Resp 16; Temp 98.6; Pulse Ox 99% ; Weight 72.12 kg; Height 5 ft. ll1 5 in. (165.10 cm); Pain 0/10; 14:34 BP 133 / 98; Pulse 81; Resp 19; Pulse Ox 99% on R/A; oh 10:43 Body Mass Index 26.46 (72.12 kg, 165.10 cm) 1 ED Course: 10:30 Patient arrived in ED. mr 10:31 TanvirShahida is Private Physician. mr 10:42 Arm band placed on Patient placed in an exam room, on a stretcher. ll1 10:44 Triage completed. ll1 10:47 Marcela Ronquillo MD is Attending Physician. [facility] 11:24 uDdley Keyes, TACHO is Primary Nurse. oh 11:42 CT Head Brain wo Cont In Process Unspecified. EDMS 12:05 Bed in low position. Call light in reach. oh 12:08 Lab(s) recollected, by me, sent to lab. vg1 13:32 Black Daniel MD is Referral Physician. ma2 14:35 No provider procedures requiring assistance completed. oh 14:35 IV discontinued, bleeding controlled, Pressure dressing applied. oh Administered Medications: 11:39 Drug: NS 0.9% 1000 ml Route: IV; Rate: 1 bolus; Site: left hand; oh 11:39 Drug: Meclizine 50 mg Route: PO; oh Outcome: 13:32 Discharge ordered by . ma2 14:35 Discharged to home oh 14:35 Condition: stable 14:35 Discharge instructions given to patient. 14:35 Patient left the ED. oh Signatures: Dispatcher [employer] [facility] Naomi Escalante mr Marcela Ronquillo MD MD ma2 Catherine Pratt, TACHO RN 1 Faheem Demarco RN RN 1 Dudley Keyes, TACHO RN oh
--- NOTE | 2020-11-13 13:33 | EDPHYS ---
Physician Documentation [facility] Name: Mildred Caldwell Age: 44 yrs Sex: Female : 1975 Arrival Date: 11/13/2020 Time: 10:30 Bed 24 Private MD: Shahida Ramey ED Physician Marcela Ronquillo HPI: 11/13 11:12 This 44 yrs old Female presents to ER via Ambulatory with complaints of ma2 Dizziness. 11:12 The patient presents with vertigo. Onset: The symptoms/episode began/occurred ma2 gradually, 1 day(s) ago. Associated signs and symptoms: Pertinent negatives: agitation, blurred vision, combativeness, diaphoresis, head injury, numbness, palpitations, , syncope. Severity of symptoms: At their worst the symptoms were moderate in the emergency department the symptoms are unchanged. The patient has not experienced similar symptoms in the past. Patient has history of vertigo, she is here with another episode of positional spinning, resolve at rest. No other symptoms at this time.. 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 - Social history:: Smoking status: Patient denies any tobacco usage or history of. - Family history:: not pertinent. ROS: 11:12 Constitutional: Negative for fever, chills, and weight loss. ma2 11:12 All other systems are negative. Exam: 11:12 Constitutional: This is a well developed, well nourished patient who is awake, alert, ma2 and in no acute distress. Head/Face: Normocephalic, atraumatic. Eyes: Pupils equal round and reactive to light, extra-ocular motions intact. Lids and lashes normal. Conjunctiva and sclera are non-icteric and not injected. Cornea within normal limits. Periorbital areas with no swelling, redness, or edema. ENT: Nares patent. No nasal discharge, no septal abnormalities noted. Tympanic membranes are normal and external auditory canals are clear. Oropharynx with no redness, swelling, or masses, exudates, or evidence of obstruction, uvula midline. Mucous membranes moist. Neck: Trachea midline, no thyromegaly or masses palpated, and no cervical lymphadenopathy. Supple, full range of motion without nuchal rigidity, or vertebral point tenderness. No Meningismus. Chest/axilla: Normal chest wall appearance and motion. Nontender with no deformity. No lesions are appreciated. Cardiovascular: Regular rate and rhythm with a normal S1 and S2. No gallops, murmurs, or rubs. Normal PMI, no JVD. No pulse deficits. Respiratory: Lungs have equal breath sounds bilaterally, clear to auscultation and percussion. No rales, rhonchi or wheezes noted. No increased work of breathing, no retractions or nasal flaring. Abdomen/GI: Soft, non-tender, with normal bowel sounds. No distension or tympany. No guarding or rebound. No evidence of tenderness throughout. Skin: Warm, dry with normal turgor. Normal color with no rashes, no lesions, and no evidence of cellulitis. MS/ Extremity: Pulses equal, no cyanosis. Neurovascular intact. Full, normal range of motion. Neuro: Awake and alert, GCS 15, oriented to person, place, time, and situation. Cranial nerves II-XII grossly intact. Motor strength 5/5 in all extremities. Sensory grossly intact. Cerebellar exam normal. Normal gait. Psych: Awake, alert, with orientation to person, place and time. Behavior, mood, and affect are within normal limits. Vital Signs: 10:43 BP 137 / 91; Pulse 83; Resp 16; Temp 98.6; Pulse Ox 99% ; Weight 72.12 kg; Height 5 ft. ll1 5 in. (165.10 cm); Pain 0/10; 14:34 BP 133 / 98; Pulse 81; Resp 19; Pulse Ox 99% on R/A; oh 10:43 Body Mass Index 26.46 (72.12 kg, 165.10 cm) ll1 MDM: 10:47 Patient medically screened. ma2 11:12 Differential diagnosis: generalized weakness, hyperventilation, hypovolemia, ma2 near-syncope, vertigo. 13:31 Data reviewed: vital signs, nurses notes. Counseling: I had a detailed discussion with ma the patient and/or guardian regarding: the historical points, exam findings, and any diagnostic results supporting the discharge/admit diagnosis, the presence of at least one elevated blood pressure reading (>120/80) during this emergency department visit, the need for outpatient follow up. Response to treatment: the patient's symptoms have markedly improved after treatment. 13:31 ED course: Still feel mildly vertiginous, however she wants to go home, I offered more ma2 pain medicine and medication for vertigo as she is in the ER however she declined and she wants to go home. I have offered follow-up with a neurologist. 11/13 11:08 Order name: Basic Metabolic Panel; Complete Time: 13:03 [facility] 11/13 11:08 Order name: CBC with Diff; Complete Time: 12: [facility] 11/13 11:08 Order name: CT Head Brain wo Cont; Complete Time: 12:25 [facility] 11/13 11:08 Order name: Hepatic Function; Complete Time: 13:03 [facility] 11/13 11:08 Order name: Lipase; Complete Time: 13: [facility] 11/13 11:36 Order name: Urine Dipstick-Ancillary; Complete Time: 12:25 EDND 11/13 11:08 Order name: IV Saline Lock; Complete Time: 11:53 [facility] 11/13 11:08 Order name: Labs collected and sent; Complete Time: 11:53 [facility] 11/13 11:08 Order name: Urine Dipstick-Ancillary (obtain specimen); Complete Time: 11:59 [facility] 11/13 11:55 Order name: Labs - recollect needed: recollect needed blood hemolyzed; Complete Time: eb 12:08 Administered Medications: 11:39 Drug: NS 0.9% 1000 ml Route: IV; Rate: 1 bolus; Site: left hand; oh 11:39 Drug: Meclizine 50 mg Route: PO; oh Disposition Summary: 11/13/20 13:32 Discharge Ordered Location: Home ma Condition: Stable ma2 Diagnosis - Other peripheral vertigo ma2 Followup: ma2 - With: Black Daniel MD - When: Tomorrow - Reason: If symptoms return, Continuance of care Discharge Instructions: - Discharge Summary Sheet ma2 - Benign Positional Vertigo ma2 Forms: - Medication Reconciliation Form ma2 - Thank You Letter ma2 - Antibiotic Education ma2 - Prescription Opioid Use ma2 Prescriptions: - Meclizine 25 mg Oral Tablet - take 1 tablet by ORAL route every 8 hours As needed; 30 tablet; Refills: 0, ma2 Product Selection Permitted Signatures: Dispatcher [employer] EDMS Marcela Ronquillo MD MD ma2 Tracy Hugo Lynsay RN RN 1 Dudley Keyes RN RN oh
[2020-11-13 14:56] VITALS: TEMP 98.6; O2SAT 99
[2020-11-13 14:57] VITALS: BP 133/98
== END 2020-11-13 14:35 | disposition home or self-care (01) ==
LOC: ER 10:28
DX: H81.399 Other peripheral vertigo, unspecified ear (principal); Z88.6 Allergy status to analgesic agent; Z91.040 Latex allergy status; E11.9 Type 2 diabetes mellitus without complications; I10 Essential (primary) hypertension
CPT/HCPCS: 85025; 80048; 36415; 80076; 81003; 83690; 70450; 99283; J7030

== ENCOUNTER 2021-01-10 11:15 | Emergency (ER) | payer OTHER ==
--- OUTSIDE RECORDS SUMMARY | 2021-01-10 11:21 | XMS REPORT | Continuity of Care Document ---
:1975 Author Organization [facility] t Address [address] [place] [address] Care Team Providers Name Role Phone PCP, DOES NOT HAVE A Primary Care Physician Unavailable Popeye COPPOLA JR Attending Clinician Unavailable NICOLETTE Attending Clinician Unavailable Petros STUART Attending Clinician Unavailable Betina DOSHI Attending Clinician Unavailable [place] PAC, S Attending Clinician Narciso SUAREZ, L Attending Clinician JACKIE Attending Clinician Unavailable Doctor Unassigned, Name Attending Clinician Unavailable Nicolette MESA Attending Clinician KAYODE, K.H. Attending Clinician Unavailable NOREEN Attending Clinician Unavailable Popeye RN, L Attending Clinician Unavailable Kayode SUAREZ, K.H. Attending Clinician Ousmane WALSH Attending Clinician Guilherme PHD, L Attending Clinician Noreen SUAREZ Attending Clinician Anat AJ E Attending Clinician Pob, Lab Main Attending Clinician Unavailable Only, Test Attending Clinician Unavailable LUIS MIGUEL Attending Clinician Unavailable Caitie HILL Attending Clinician Unavailable KARIE Attending Clinician Unavailable Phu SUAREZ Attending Clinician Fernando SUAREZ, Husam Attending Clinician HUSAM BRASHER Attending Clinician Unavailable Pc, Echo Room 1 - Attending Clinician Unavailable Jimmie SUAREZ Attending Clinician JIMMIE Attending Clinician Unavailable JESUS MANUEL Attending Clinician Unavailable Shawna Montenegro PA-C Attending Clinician Navjot NUÑEZ Attending Clinician Unavailable JANETH Attending Clinician Unavailable Popeye COPPOLA JR Admitting Clinician Unavailable Popeye Coppola DPM Admitting Clinician Petros STUART Admitting Clinician Unavailable Navjot NUÑEZ Admitting Clinician Unavailable Payers Payer Name Policy Type Policy Number Effective Date Expiration Date [facility] hospital [id number] 2017 CHOICE MEDICAID 00:00:00 Problems Condition Condition Condition Status Onset Resolution Last Treating Co mments Source Name Details Category Date Date Treatment Clinician Date Cervical Cervical Disease Active 2017-02 Unive rs spondylosi spondylosi 2-21 it y of s with s with 00:00: [place] radiculopa radiculopa 00 Me dical thy thy Branch History of History of Disease Active Overview : [facility] colonoscop colonoscop 13 Formattin ity of y y 00:00: g of this [place] 00 note Medical might be Branch different from the original. Formattin g of this note might be different from the original. Recommend repeating colonosco py in 10yrs and forgo annual FIT in the interim. 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 Unive rs (transvers (transvers 2-21 it y of e rectus e rectus 00:00: [place] abdominis abdominis 00 Medi [place] muscle) muscle) Branch flap flap breast breast reconstruc reconstruc tion tion Acquired Acquired Disease Active Unive rs absence of absence of 8-14 it y of unspecifie unspecifie [place] breast d breast 00 Medica l and nipple and nipple Br anch History of History of Disease Active [facility] rotator rotator 6- [employer] cuff cuff 00:00: of surgery surgery 00 Medicin e Tear of Tear of Disease Active [place] left left 08-17 College rotator rotator 00:00: of cuff cuff 00 Medicin e BRCA2 gene BRCA2 gene Disease Active Overview : Univers mutation mutation 5-10 Formattin ity of positive positive 00:00: g of this [place] as 00 note Medical might be Branch different from the original. Formattin g of this note might be different from the original. 08/01/2016 see in ophthalmic dispenser onc clinic. Intereste d in RRBSO. Plan to do after mastectom y/recontr uction. CA-125 ordered. TVUS scheduled 08/18/16. Plan for u5koniv surveilla nce until risk reducing BSO. 03/27/17: exam under anesthesi a, diagnosti c and operative laparosco py, total laparosco pic hysterect jac, bilateral salpingo- oophorect jac, pelvic washings. ([place])03/22 06/06: tumor board: pathology notable for negative washings, benign adnexa, and uterus. Plan for annual WWE.Forma tting of this note might be different from the original. Added automatic ally from request for surgery [id number] Neck pain Neck pain Disease Active 2014-02 [place] giuliana on left on left 03-15 [facility] side 00:00: of 00 Medicin e Pain, Pain, Diagnosis Active [facility] joint, [...] Problem Active Univers pain pain ity of [place] Phys[facility] ans No known No known Disease Unive rs active active ity of problems problems [facility] Branch Allergies, Adverse Reactions, Alerts Allergy Allergy Status Severity Reaction(s) Onset Inactive Treating Comm ents Source Name Type Date Date Clinician No Known DA Active U 2019-02 [facility]27 [place] [facility] No Known DA Active U 2019-02 [facility] Allergie 03-27 [place] [facility] ADHESIVE DRUG Active High Rash 2017-02 Univers TAPE-RENÉE 2- ity of ICONES 00:00: [place] 00 Medical Branch Adhesive Propensi Active Rash 2017-02 Blistered Uni vers Tape-Renée ty to 2 when ity of icones adverse 00:00: abdominal [place] reaction 00 bandage Medical s left on Branch for a week. Opioid Propensi Active [place] to [address] [place] cs adverse 00:00: of reaction 00 Medicin s to e drug Social History Social Habit Start Date Stop Date Quantity Comments Source Alcohol intake [facility] lege of Medicine Sex Assigned [facility] [place] [facility] History [facility] o f [place] Alcohol Std Drinks Medica l Branch History [facility] o f [place] Alcohol Binge Medical Bra [facility] Exposure to Not sure [facility] SARS-CoV-2 (event) Medica l [place] Tobacco use and 2020-07-26 2020-07-26 Never used [facility] exposure 00:00:00 00:00:00 Medical Branch History [facility] 2019-04-09 2019-04-09 3 [facility] o [facility] [place] Alcohol Frequency 00:00:00 00:00:00 Medical Branch Smoking Status Start Date Stop Date Source Unknown if ever smoked [facility] Medical [place] Never smoker [facility] o Medicine Medications Ordered Filled Start Stop Current Ordering Indication Dosage Frequency Signature Comments Components Source Medication Medication Date Date Medication? Clinician (SIG) Name Name methylPREDN Yes [id number] 84mg Take 21 Univers ISolone 9-02 tablets by ity of (MEDROL, 00:00: mouth [place] FAHEEM,) 4 mg 00 SEE-INSTRU Med ical tablets CTIONS. Branch follow package directions methylPREDN Yes [id number] 84mg Take 21 Univers ISolone 9-02 tablets by ity of (MEDROL, 00:00: mouth [place] FAHEEM,) 4 mg 00 SEE-INSTRU Med ical tablets CTIONS. Branch follow package directions oxymetazoli Yes Use in Uni vers ne HCl 6-07 each ity of (AFRIN 20:10: nostril. [place] NASAL) 38 Medical Branch promethazin Yes Take by Un zeenat e HCl 6-07 mouth. ity of (PROMETHAZI 20:10: [place] NE ORAL) 38 Medical Branch oxymetazoli Yes Use in Uni vers ne HCl 6-07 each ity of (AFRIN 20:10: nostril. [place] NASAL) 38 Medical Branch promethazin Yes Take by Un zeenat e HCl 6-07 mouth. ity of (PROMETHAZI 20:10: [place] NE ORAL) 38 Medical Branch oxymetazoli Yes Use in Uni vers ne HCl 6-07 each ity of (AFRIN 20:10: nostril. [place] NASAL) 38 Medical Branch oxymetazoli Yes Use in Uni vers ne HCl 6-07 each ity of (AFRIN 20:10: nostril. [place] NASAL) 38 Medical Branch promethazin Yes Take by Un zeenat e HCl 6-07 mouth. ity of (PROMETHAZI 20:10: [place] NE ORAL) 38 Medical Branch oxymetazoli Yes Use in Uni vers ne HCl 6-07 each ity of (AFRIN 20:10: nostril. [place] NASAL) 38 Medical Branch promethazin Yes Take by Un zeenat e HCl 6-07 mouth. ity of (PROMETHAZI 20:10: [place] NE ORAL) 38 Medical Branch oxymetazoli Yes Use in Uni vers ne HCl 6-07 each ity of (AFRIN 20:10: nostril. [place] NASAL) 38 Medical Branch promethazin Yes Take by Un zeenat e HCl 6-07 mouth. ity of (PROMETHAZI 20:10: [place] NE ORAL) 38 Medical Branch oxymetazoli Yes Use in Uni vers ne HCl 6-07 each ity of (AFRIN 20:10: nostril. [place] NASAL) 38 Medical Branch promethazin Yes Take by Un zeenat e HCl 6-07 mouth. ity of (PROMETHAZI 20:10: [place] NE ORAL) 38 Medical Branch oxymetazoli Yes Use in Uni vers ne HCl 6-07 each ity of (AFRIN 20:10: nostril. [place] NASAL) 38 Medical Branch promethazin Yes Take by Un zeenat e HCl 6-07 mouth. ity of (PROMETHAZI 20:10: [place] NE ORAL) 38 Medical Branch oxymetazoli Yes Use in Uni vers ne HCl 6-07 each ity of (AFRIN 20:10: nostril. [place] NASAL) 38 Medical Branch promethazin Yes Take by Un zeenat e HCl 6-07 mouth. ity of (PROMETHAZI 20:10: [place] NE ORAL) 38 Medical Branch oxymetazoli Yes Use in Uni vers ne HCl 4-06 each ity of (AFRIN 19:48: nostril. [place] NASAL) 11 Medical Branch oxymetazoli Yes Use in Uni vers ne HCl 4-06 each ity of (AFRIN 19:48: nostril. [place] NASAL) 11 Medical Branch oxymetazoli Yes Use in Uni vers ne HCl 4-06 each ity of (AFRIN 19:48: nostril. [place] NASAL) 11 Medical Branch oxymetazoli Yes Use in Uni vers ne HCl 4-06 each ity of (AFRIN 19:48: nostril. [place] NASAL) 11 Medical Branch oxymetazoli Yes Use in Uni vers ne HCl 4-06 each ity of (AFRIN 19:48: nostril. [place] NASAL) 11 Medical Branch SYMBICORT Yes INHALE TWO Un zeenat 160-4.5 3-11 (2) ity of mcg/actuati 00:00: PUFF(S) BY [place] on inhaler 00 MOUTH Medical TWICE A Branch DAY. ALBUTEROL Yes INHALE ONE Un zeenat SULFATE HFA 3-11 (1) OR TWO it y of INHALE 00:00: (2) [place] 00 PUFF(S) BY Medical MOUTH Branch EVERY FOUR HOURS NEEDED. SYMBICORT Yes INHALE TWO Un zeenat 160-4.5 3-11 (2) ity of mcg/actuati 00:00: PUFF(S) BY [place] on inhaler 00 MOUTH Medical TWICE A Branch DAY. ALBUTEROL Yes INHALE ONE Un zeenat SULFATE HFA 3-11 (1) OR TWO it y of INHALE 00:00: (2) [place] 00 PUFF(S) BY Medical MOUTH Branch EVERY FOUR HOURS NEEDED. SYMBICORT Yes INHALE TWO Un zeenat 160-4.5 3-11 (2) ity of mcg/actuati 00:00: PUFF(S) BY [place] on inhaler 00 MOUTH Medical TWICE A Branch DAY. ALBUTEROL 0 Yes INHALE ONE Un zeenat SULFATE HFA 3-11 (1) OR TWO it y of INHALE 00:00: (2) [place] 00 PUFF(S) BY Medical MOUTH [place] EVERY FOUR HOURS NEEDED. SYMBICORT Yes INHALE TWO Un zeenat 160-4.5 3-11 (2) ity of mcg/actuati 00:00: PUFF(S) BY [place] on inhaler 00 MOUTH Medical TWICE A Branch DAY. ALBUTEROL Yes INHALE ONE Un zeenat SULFATE HFA 3-11 (1) OR TWO it y of INHALE 00:00: (2) [place] 00 PUFF(S) BY Medical MOUTH [place] EVERY FOUR HOURS NEEDED. SYMBICORT Yes INHALE TWO Un zeenat 160-4.5 3-11 (2) ity of mcg/actuati 00:00: PUFF(S) BY [place] on inhaler [address] [place] [address] Medical TWICE A Branch DAY. ALBUTEROL Yes INHALE ONE Un zeenat SULFATE HFA 3-11 (1) OR TWO it y of INHALE 00:00: (2) [place] 00 PUFF(S) BY Medical [facility] EVERY FOUR HOURS NEEDED. SYMBICORT Yes INHALE TWO Un zeenat 160-4.5 3-11 (2) ity of mcg/actuati 00:00: PUFF(S) BY [place] on inhaler 00 MOUTH Medical TWICE A Branch DAY. ALBUTEROL Yes INHALE ONE Un zeenat SULFATE HFA 3-11 (1) OR TWO it y of INHALE 00:00: (2) [place] 00 PUFF(S) BY Medical MOUTH [place] EVERY FOUR HOURS NEEDED. SYMBICORT Yes INHALE TWO Un zeenat 160-4.5 3-11 (2) ity of mcg/actuati 00:00: PUFF(S) BY [place] on inhaler 00 MOUTH Medical TWICE A Branch DAY. ALBUTEROL 0 Yes INHALE ONE Un zeenat SULFATE HFA 3-11 (1) OR TWO it y of INHALE 00:00: (2) [place] 00 PUFF(S) BY Medical MOUTH Branch EVERY FOUR HOURS NEEDED. SYMBICORT 0 Yes INHALE TWO Un zeenat 160-4.5 3-11 (2) ity of mcg/actuati 00:00: PUFF(S) BY [place] on inhaler 00 MOUTH Medical TWICE A Branch DAY. ALBUTEROL 0 Yes INHALE ONE Un zeenat SULFATE HFA 3-11 (1) OR TWO it y of INHALE 00:00: (2) [place] 00 PUFF(S) BY Medical MOUTH Branch EVERY FOUR HOURS NEEDED. SYMBICORT 0 Yes INHALE TWO Un zeenat 160-4.5 3-11 (2) ity of mcg/actuati 00:00: PUFF(S) BY [place] on inhaler 00 MOUTH Medical TWICE A Branch DAY. ALBUTEROL 0 Yes INHALE ONE Un zeenat SULFATE HFA 3-11 (1) OR TWO it y of INHALE 00:00: (2) [place] 00 PUFF(S) BY Medical MOUTH [place] EVERY FOUR HOURS NEEDED. SYMBICORT Yes INHALE TWO Un zeenat 160-4.5 3-11 (2) ity of mcg/actuati 00:00: PUFF(S) BY [place] on inhaler 00 MOUTH Medical TWICE A Branch DAY. ALBUTEROL 0 Yes INHALE ONE Un zeenat SULFATE HFA 3-11 (1) OR TWO it y of INHALE 00:00: (2) [place] 00 PUFF(S) BY Medical MOUTH [place] EVERY FOUR HOURS NEEDED. SYMBICORT Yes INHALE TWO Un zeenat 160-4.5 3-11 (2) ity of mcg/actuati 00:00: PUFF(S) BY [place] on inhaler 00 MOUTH Medical TWICE A Branch DAY. ALBUTEROL 0 Yes INHALE ONE Un zeenat SULFATE HFA 3-11 (1) OR TWO it y of INHALE 00:00: (2) [place] 00 PUFF(S) BY Medical MOUTH [place] EVERY FOUR HOURS NEEDED. SYMBICORT 0 Yes INHALE TWO Un zeenat 160-4.5 3-11 (2) ity of mcg/actuati 00:00: PUFF(S) BY [place] on inhaler 00 MOUTH Medical TWICE A Branch DAY. ALBUTEROL 2020-0 Yes INHALE ONE Un zeenat SULFATE HFA 3-11 (1) OR TWO it y of INHALE 00:00: (2) [place] 00 PUFF(S) BY Medical MOUTH Branch EVERY FOUR HOURS NEEDED. SYMBICORT 2020-0 Yes INHALE TWO Un zeenat 160-4.5 3-11 (2) ity of mcg/actuati 00:00: PUFF(S) BY [place] on inhaler 00 MOUTH Medical TWICE A Branch DAY. ALBUTEROL 2020-0 Yes INHALE ONE Un zeenat SULFATE HFA 3-11 (1) OR TWO it y of INHALE 00:00: (2) [place] 00 PUFF(S) BY Medical MOUTH Branch EVERY FOUR HOURS NEEDED. SYMBICORT 2020-0 Yes INHALE TWO Un zeenat 160-4.5 3-11 (2) ity of mcg/actuati 00:00: PUFF(S) BY [place] on inhaler 00 MOUTH Medical TWICE A Branch DAY. ALBUTEROL 2020-0 Yes INHALE ONE Un zeenat SULFATE HFA 3-11 (1) OR TWO it y of INHALE 00:00: (2) [place] 00 PUFF(S) BY Medical MOUTH Branch EVERY FOUR HOURS NEEDED. metoprolol 0 Yes 25mg Take 25 mg U nivers tartrate 25 3-04 by mouth ity of mg tablet 00:00: every 12 [place] 00 (twelve) Medical hours. Branch metoprolol 2020-0 Yes 25mg Take 25 mg U nivers tartrate 25 3-04 by mouth ity of mg tablet 00:00: every 12 [place] 00 (twelve) Medical hours. Branch metoprolol 2020-0 Yes 25mg Take 25 mg U nivers tartrate 25 3-04 by mouth ity of mg tablet 00:00: every 12 [place] 00 (twelve) Medical hours. Branch metoprolol 2020-0 Yes 25mg Take 25 mg U nivers tartrate 25 3-04 by mouth ity of mg tablet 00:00: every 12 [place] 00 (twelve) Medical hours. Branch metoprolol 2020-0 Yes 25mg Take 25 mg U nivers tartrate 25 3-04 by mouth ity of mg tablet 00:00: every 12 [place] 00 (twelve) Medical hours. Branch metoprolol 2021-0 Yes 25mg Take 25 mg U nivers tartrate 25 3-04 by mouth ity of mg tablet 00:00: every 12 [place] 00 (twelve) Medical hours. Branch metoprolol 1-0 Yes 25mg Take 25 mg U nivers tartrate 25 3-04 by mouth ity of mg tablet 00:00: every 12 [place] 00 (twelve) Medical hours. Branch metoprolol 2020-0 Yes 25mg Take 25 mg U nivers tartrate 25 3-04 by mouth ity of mg tablet 00:00: every 12 [place] 00 (twelve) Medical hours. Branch metoprolol 2020-0 Yes 25mg Take 25 mg U nivers tartrate 25 3-04 by mouth ity of mg tablet 00:00: every 12 [place] 00 (twelve) Medical hours. Branch metoprolol 2020-0 Yes 25mg Take 25 mg U nivers tartrate 25 3-04 by mouth ity of mg tablet 00:00: every 12 [place] 00 (twelve) Medical hours. Branch metoprolol 2020-0 Yes 25mg Take 25 mg U nivers tartrate 25 3-04 by mouth ity of mg tablet 00:00: every 12 [place] 00 (twelve) Medical hours. Branch metoprolol 2020-0 Yes 25mg Take 25 mg U nivers tartrate 25 3-04 by mouth ity of mg tablet 00:00: every 12 [place] 00 (twelve) Medical hours. Branch metoprolol 2020-0 Yes 25mg Take 25 mg U nivers tartrate 25 3-04 by mouth ity of mg tablet 00:00: every 12 [place] 00 (twelve) Medical hours. Branch metoprolol 2020-0 Yes 25mg Take 25 mg U nivers tartrate 25 3-04 by mouth ity of mg tablet 00:00: every 12 [place] 00 (twelve) Medical hours. Branch lactated 2020-0 Yes 1000mL at 75 Univer s ringers IV 1-26 mL/hr, ity of infusion 15:45: 1,000 mL, [place] 1,000 mL 00 IV Medical Infusion, Branch CONTINUOUS , Starting Sun03/16/20 at 0945, Until Discontinu ed, Routine, PACU FENTanyl PF 2020-0 Yes 25ug 25 mcg, Uni vers (SUBLIMAZE 03-16 Slow IV ity of (PF)) 15:38: Push, [place] injection 07 Q5MIN PRN, Medi [place] 25 mcg 4 doses, Branch Starting Sun03/16/20 at 0938, Until Discontinu ed, Routine, Pain (scale 4-6), PACU ondansetron Yes 4mg 4 mg, Slow Univers (ZOFRAN 03-16 IV Push, ity of (PF)) 15:38: PRN, 1 [place] injection 4 07 dose, Medical mg Starting Branch Sun03/16/20 at 0938, Until Discontinu ed, Routine, Nausea and Vomiting (N/V), PACU bupivacaine Yes PRN, Univer s (preserv 03-16 Starting ity of free) 0.5% 13:48: e (SENSORCAIN 00 03/16/20 at Pa dicid E [facility]) 0.5 0748, Branch % (5 mg/mL) Intra-op 10 mL, lidocaine 1% (PF) (XYLOCAINE) 10 mL lactated 202- No 1000mL at 42 [facility] rs ringers IV 03-16 01-26 mL/hr, ity of infusion 13:15: 13:04 1,000 mL, [place] as 1,000 mL 00 :00 IV Medical Infusion, Branch ONCE, 1 dose, Sun03/16/20 at 0715, Routine, DSU Pre-op aspirin 325 2020-2020- No [id number] 325mg Take 1 Univers mg tablet 03-1624 tablet by ity of 00:00: 05:59 mouth 2 [place] 00 :00 (two) Medical times [place] daily with meals for 28 days. aspirin 325 2020-2020- No [id number] 325mg Take 1 Univers mg tablet 03-16-24 tablet by ity of 00:00: 05:59 mouth 2 [place] 00 :00 (two) Medical times Branch daily with meals for 28 days. fluorouraci Yes [id number] Apply to Univers l (EFUDEX) 8-07 area(s) at ity of 5 % cream 00:00: bedtime. [place] 00 Medical Branch fluorouraci Yes [id number] Apply to Univers l (EFUDEX) 8-07 area(s) at ity of 5 % cream 00:00: [place]time. [place] 00 Medical Branch fluorouraci 2020-0 Yes [id number] Apply to Univers l (EFUDEX) 8-07 area(s) at ity of 5 % cream 00:00: [place]time. [place] 00 Medical Branch fluorouraci 2020-0 Yes [id number] Apply to Univers l (EFUDEX) 8-07 area(s) at ity of 5 % cream 00:00: bedtime. [facility] 00 Medical Branch fluorouraci 2020-0 Yes [id number] Apply to Univers l (EFUDEX) 8-07 area(s) at ity of 5 % cream 00:00: bedtime. [facility] 00 Medical Branch fluorouraci 2020-0 Yes [id number] Apply to Univers l (EFUDEX) 8-07 area(s) at ity of 5 % cream 00:00: bedtime. [facility] 00 Medical Branch fluorouraci 2020-0 Yes [id number] Apply to Univers l (EFUDEX) 8-07 area(s) at ity of 5 % cream 00:00: bedtime. [facility] 00 Medical Branch fluorouraci 2020-0 Yes [id number] Apply to Univers l (EFUDEX) 8-07 area(s) at ity of 5 % cream 00:00: bedtime. [facility] 00 Medical Branch fluorouraci 2020-0 Yes [id number] Apply to Univers l (EFUDEX) 8-07 area(s) at ity of 5 % cream 00:00: bedtime. [facility] 00 Medical Branch fluorouraci 2020-0 Yes [id number] Apply to Univers l (EFUDEX) 8-07 area(s) at ity of 5 % cream 00:00: bedtime. [facility] 00 Medical Branch fluorouraci 2020-0 Yes [id number] Apply to Univers l (EFUDEX) 8-07 area(s) at ity of 5 % cream 00:00: bedtime. [facility] 00 Medical Branch fluorouraci 2020-0 Yes [id number] Apply to Univers l (EFUDEX) 8-07 area(s) at ity of 5 % cream 00:00: bedtime. [facility] 00 Medical Branch fluorouraci 2020-0 Yes [id number] Apply to Univers l (EFUDEX) 8-07 area(s) at ity of 5 % cream 00:00: [place]time. [place] fluorouraci 2020-0 Yes [id number] Apply to Univers l (EFUDEX) 8-07 area(s) at ity of 5 % cream 00:00: [place]time. [place] 00 [place] fluorouraci 2020-0 Yes [id number] Apply to Univers l (EFUDEX) 8-07 area(s) at ity of 5 % cream 00:00: [place]time. [place] 00 [place] fluorouraci 2020-0 Yes [id number] Apply to Univers l (EFUDEX) 8-07 area(s) at ity of 5 % cream 00:00: [place]time. [place] 00 [place] fluorouraci 2020-0 Yes [id number] Apply to Univers l (EFUDEX) 8-07 area(s) at ity of 5 % cream 00:00: bedtime. [facility] 00 Medical Branch fluorouraci 2020-0 Yes [id number] Apply to Univers l (EFUDEX) 8-07 area(s) at ity of 5 % cream 00:00: [place]time. [place] 00 [place] fluorouraci 2020-0 Yes [id number] Apply to Univers l (EFUDEX) 8-07 area(s) at ity of 5 % cream 00:00: [place]time. [place] 00 [place] fluorouraci 2020-0 Yes [id number] Apply to Univers l (EFUDEX) 8-07 area(s) at ity of 5 % cream 00:00: [place]time. [place] 00 [place] fluorouraci 2020-0 Yes [id number] Apply to Univers l (EFUDEX) 8-07 area(s) at ity of 5 % cream 00:00: [place]time. [place] 00 [place] fluorouraci 2020-0 Yes [id number] Apply to Univers l (EFUDEX) 8-07 area(s) at ity of 5 % cream 00:00: [place]time. [place] 00 [place] fluorouraci 2020-0 Yes [id number] Apply to Univers l (EFUDEX) 8-07 area(s) at ity of 5 % cream 00:00: bedtime. [place] 00 [place] Branch fluorouraci 2020-0 Yes [id number] Apply to Univers l (EFUDEX) 8-07 area(s) at ity of 5 % cream 00:00: bedtime. [place] [address] Medical Branch fluorouraci 2020-0 Yes [id number] Apply to Univers l (EFUDEX) 8-07 area(s) at ity of 5 % cream 00:00: bedtime. [place] [address] Medical Branch fluorouraci 2020-0 Yes [id number] Apply to Univers l (EFUDEX) 8-07 area(s) at ity of 5 % cream 00:00: bedtime. [place] [address] Medical Branch fluorouraci 2020-0 Yes [id number] Apply to Univers l (EFUDEX) 8-07 area(s) at ity of 5 % cream 00:00: bedtime. [facility] 00 Medical Branch PROAIR HFA 2020-0 Yes INHALE ONE U nivers 90 6-03 (1) TO TWO ity of mcg/actuati 00:00: (2) [place] on inhaler 00 PUFF(S) Medica l EVERY FOUR Branch HOURS NEEDED. PROAIR HFA 2020-0 Yes INHALE ONE U nivers 90 6-03 (1) TO TWO ity of mcg/actuati 00:00: (2) [place] on inhaler 00 PUFF(S) Medica l EVERY FOUR Branch HOURS NEEDED. PROAIR HFA 2020-0 Yes INHALE ONE U nivers 90 6-03 (1) TO TWO ity of mcg/actuati 00:00: (2) [place] on inhaler 00 PUFF(S) Medica l EVERY FOUR Branch HOURS NEEDED. PROAIR HFA 2020-0 Yes INHALE ONE U nivers 90 6-03 (1) TO TWO ity of mcg/actuati 00:00: (2) [place] on inhaler 00 PUFF(S) Medica l EVERY FOUR Branch HOURS NEEDED. PROAIR HFA 2020-0 Yes INHALE ONE U nivers 90 6-03 (1) TO TWO ity of mcg/actuati 00:00: (2) [place] on inhaler 00 PUFF(S) Medica l EVERY FOUR Branch HOURS NEEDED. PROAIR HFA 2020-0 Yes INHALE ONE U nivers 90 6-03 (1) TO TWO ity of mcg/actuati 00:00: (2) [place] on inhaler 00 PUFF(S) Medica l EVERY FOUR Branch HOURS NEEDED. PROAIR HFA 2020-0 Yes INHALE ONE U nivers 90 6-03 (1) TO TWO ity of mcg/actuati 00:00: (2) [place] on inhaler 00 PUFF(S) Medica l EVERY FOUR Branch HOURS NEEDED. PROAIR HFA 2020-0 Yes INHALE ONE U nivers 90 6-03 (1) TO TWO ity of mcg/actuati 00:00: (2) [place] on inhaler 00 PUFF(S) Medica l EVERY FOUR Branch HOURS NEEDED. PROAIR HFA 2020-0 Yes INHALE ONE U nivers 90 6-03 (1) TO TWO ity of mcg/actuati 00:00: (2) [place] on inhaler 00 PUFF(S) Medica l EVERY FOUR Branch HOURS NEEDED. PROAIR HFA 2020-0 Yes INHALE ONE U nivers 90 6-03 (1) TO TWO ity of mcg/actuati 00:00: (2) [place] on inhaler 00 PUFF(S) Medica l EVERY FOUR Branch HOURS NEEDED. PROAIR HFA 2020-0 Yes INHALE ONE U nivers 90 6-03 (1) TO TWO ity of mcg/actuati 00:00: (2) [place] on inhaler 00 PUFF(S) Medica l EVERY FOUR Branch HOURS NEEDED. PROAIR HFA 2020-0 Yes INHALE ONE U nivers 90 6-03 (1) TO TWO ity of mcg/actuati 00:00: (2) [place] on inhaler 00 PUFF(S) Medica l EVERY FOUR Branch HOURS NEEDED. PROAIR HFA 2020-0 Yes INHALE ONE U nivers 90 6-03 (1) TO TWO ity of mcg/actuati 00:00: (2) [place] on inhaler 00 PUFF(S) Medica l EVERY FOUR Branch HOURS NEEDED. PROAIR HFA 2020-0 Yes INHALE ONE U nivers 90 6-03 (1) TO TWO ity of mcg/actuati 00:00: (2) [place] on inhaler 00 PUFF(S) Medica l EVERY FOUR Branch HOURS NEEDED. PROAIR HFA 2020-0 Yes INHALE ONE U nivers 90 6-03 (1) TO TWO ity of mcg/actuati 00:00: (2) [place] on inhaler 00 PUFF(S) Medica l EVERY FOUR Branch HOURS NEEDED. PROAIR HFA 2020-0 Yes INHALE ONE U nivers 90 6-03 (1) TO TWO ity of mcg/actuati 00:00: (2) [place] on inhaler 00 PUFF(S) Medica l EVERY FOUR Branch HOURS NEEDED. PROAIR HFA 2020-0 Yes INHALE ONE U nivers 90 6-03 (1) TO TWO ity of mcg/actuati 00:00: (2) [place] on inhaler 00 PUFF(S) Medica l EVERY FOUR Branch HOURS NEEDED. PROAIR HFA 2020-0 Yes INHALE ONE U nivers 90 6-03 (1) TO TWO ity of mcg/actuati 00:00: (2) [place] on inhaler 00 PUFF(S) Medica l EVERY FOUR Branch HOURS NEEDED. PROAIR HFA 2020-0 Yes INHALE ONE U nivers 90 6-03 (1) TO TWO ity of mcg/actuati 00:00: (2) [place] on inhaler 00 PUFF(S) Medica l EVERY FOUR Branch HOURS NEEDED. PROAIR HFA 2020-0 Yes INHALE ONE U nivers 90 6-03 (1) TO TWO ity of mcg/actuati 00:00: (2) [place] on inhaler 00 PUFF(S) Medica l EVERY FOUR Branch HOURS NEEDED. PROAIR HFA 2020-0 Yes INHALE ONE U nivers 90 6-03 (1) TO TWO ity of mcg/actuati 00:00: (2) [place] on inhaler 00 PUFF(S) Medica l EVERY FOUR Branch HOURS NEEDED. PROAIR HFA 2020-0 Yes INHALE ONE U nivers 90 6-03 (1) TO TWO ity of mcg/actuati 00:00: (2) [place] on inhaler 00 PUFF(S) Medica l EVERY FOUR Branch HOURS NEEDED. PROAIR HFA 2020-0 Yes INHALE ONE U nivers 90 6-03 (1) TO TWO ity of mcg/actuati 00:00: (2) [place] on inhaler 00 PUFF(S) Medica l EVERY FOUR Branch HOURS NEEDED. PROAIR HFA 2020-0 Yes INHALE ONE U nivers 90 6-03 (1) TO TWO ity of mcg/actuati 00:00: (2) [place] on inhaler 00 PUFF(S) Medica l EVERY FOUR Branch HOURS NEEDED. PROAIR HFA 2020-0 Yes INHALE ONE U nivers 90 6-03 (1) TO TWO ity of mcg/actuati 00:00: (2) [place] on inhaler 00 PUFF(S) Medica l EVERY FOUR Branch HOURS NEEDED. PROAIR HFA 2020-0 Yes INHALE ONE U nivers 90 6-03 (1) TO TWO ity of mcg/actuati 00:00: (2) [place] on inhaler 00 PUFF(S) Medica l EVERY FOUR Branch HOURS NEEDED. PROAIR HFA 2019-0 Yes INHALE ONE U nivers 90 6-03 (1) TO TWO ity of mcg/actuati 00:00: (2) [place] on inhaler 00 PUFF(S) Medica l EVERY FOUR Branch HOURS NEEDED. PROAIR HFA 2019-0 Yes INHALE ONE U nivers 90 6-03 (1) TO TWO ity of mcg/actuati 00:00: (2) [place] on inhaler 00 PUFF(S) Medica l EVERY FOUR Branch HOURS NEEDED. PROAIR HFA 2019-0 Yes INHALE ONE U nivers 90 6-03 (1) TO TWO ity of mcg/actuati 00:00: (2) [place] on inhaler 00 PUFF(S) Medica l EVERY FOUR Branch HOURS NEEDED. PROAIR HFA 2019-0 Yes INHALE ONE U nivers 90 6-03 (1) TO TWO ity of mcg/actuati 00:00: (2) [place] on inhaler 00 PUFF(S) Medica l EVERY FOUR Branch HOURS NEEDED. PROAIR HFA 2020-0 Yes INHALE ONE U nivers 90 6-03 (1) TO TWO ity of mcg/actuati 00:00: (2) [place] on inhaler 00 PUFF(S) Medica l EVERY FOUR Branch HOURS NEEDED. PROAIR HFA 2019-0 Yes INHALE ONE U nivers 90 6-03 (1) TO TWO ity of mcg/actuati 00:00: (2) [place] on inhaler 00 PUFF(S) Medica l EVERY FOUR Branch HOURS NEEDED. Na 2019-0 Yes [id number] [SUPREP] [place] or Sulfate-K 2- Take as [place] Sulfate-Mg 00:00: directed. of Sulf 00 Medicin (SUPREP e BOWEL PREP KIT) 17.5-3.13-1 .6 GM/177ML SOLN Plecanatide Yes [id number] 3mg Take 3 mg [place] (TRULANCE) 2-26 by mouth Colle ge 3 MG TABS 00:00: daily. of 00 Medicin e metoclopram Yes [id number] 10mg Take 1 Tab [place] pedro 2- by mouth [place] (REGLAN) 10 00:00: two times o f MG tablet 00 daily. Medicin e Pancrelipas Yes 2{capsu Take 2 B aylor e, 04-16 le} Caps by [place] Lip-Prot-Am 00:00: mouth 3 of yl, (CREON) 00 times Medicin 10314 units daily e CPEP (with meals). Tylenol # 3 Tylenol # 3 Yes Jerod one tab [facility] Clinics No known No Univers medications ity [facility] No known No Univers medications ity [facility] No known No Univers medications ity [facility] No known No Univers medications ity [facility] No known No Univers medications ity [facility] No known No Univers medications ity [facility] No known No Univers medications ity [facility] No known No Univers medications ity [facility] No known No Univers medications ity [facility] No known No Univers medications ity [facility] No known No Univers medications ity [facility] No known No Univers medications ity [facility] No known No Univers medications ity [facility] No known No Univers medications ity [facility] Immunizations Ordered Filled Immunization Date Status Comments [facility] e Immunization Name Name Influenza Virus 2018-02-09 Completed Universit y of Vaccine [place] [facility], 00:00:00 [facility] dical Preserv and ABX Branch Free 2-64 YRS Influenza Virus 2018-02-09 Completed Universit y of Vaccine [place] [facility], 00:00:00 [facility] dical Preserv and ABX Branch Free 2-64 YRS Influenza Virus 2018-02-09 Completed Universit y of Vaccine [place] [facility], 00:00:00 [place] [facility] dical Preserv and ABX Branch Free 2-64 YRS Influenza Virus 2018-02-09 Completed Universit y of Vaccine [place] [facility], 00:00:00 [place] [facility] dical Preserv and ABX Branch Free 2-64 YRS Influenza Virus 2018-02-09 Completed Universit y of Vaccine [place] [facility], 00:00:00 [place] [facility] dical Preserv and ABX Branch Free 2-64 YRS Influenza Virus 2018-02-09 Completed Universit y of Vaccine [facility], 00:00:00 [place] [facility] dical Preserv and ABX Branch Free 2-64 YRS Influenza Virus 2018-02-09 Completed Universit y of Vaccine [facility], 00:00:00 [place] [facility] dical Preserv and ABX Branch Free 2-64 YRS Influenza Virus 2018-02-09 Completed Universit y of Vaccine [facility], 00:00:00 [place] [facility] dical Preserv and ABX Branch Free 2-64 YRS Influenza Virus 2018-02-09 Completed Universit y of Vaccine [facility], 00:00:00 [facility] dical Preserv and ABX Branch Free 2-64 YRS Influenza Virus 2018-02-09 Completed Universit y of Vaccine [facility] IM, 00:00:00 [place] [facility] dical Preserv and ABX Branch Free 2-64 YRS Influenza Virus 2018-02-09 Completed Universit y of Vaccine [facility] IM, 00:00:00 [facility] dical Preserv and ABX Branch Free 2-64 YRS Influenza Virus 2016-11-25 Completed Universit y of Vaccine 00:00:00 [facility] Influenza Virus 2016-11-25 Completed Universit y of Vaccine 00:00:00 [facility] Influenza Virus 2016-11-25 Completed Universit y of Vaccine 00:00:00 [facility] Influenza Virus 2016-11-25 Completed Universit y of Vaccine 00:00:00 [facility] Influenza Virus 2016-11-25 Completed Universit y of Vaccine 00:00:00 [facility] Influenza Virus 2016-11-25 Completed Universit y of Vaccine 00:00:00 [facility] Influenza Virus 2016-11-25 Completed Universit y of Vaccine 00:00:00 [facility] Influenza Virus 2016-11-25 Completed Universit y of Vaccine 00:00:00 [facility] Influenza Virus 2016-11-25 Completed Universit y of Vaccine 00:00:00 [facility] Influenza Virus 2016-11-25 Completed Universit y of Vaccine 00:00:00 [facility] Influenza Virus 2016-11-25 Completed Universit y of Vaccine 00:00:00 [facility] Vital Signs Vital Name Observation Time Observation Value Comments Source Systolic blood 2020-10-21 13:26:00 153 mm[Hg] Univer sity of pressure [place] [facility] Diastolic blood 2020-10-21 13:26:00 103 mm[Hg] Unive rsity of pressure [place] [facility] Heart rate 2020-10-21 13:26:00 79 /min Universi ty [facility] [place] [facility] Body height 2020-10-21 13:24:00 167.6 cm Universi ty [facility] [place] [facility] Body weight 2020-10-21 13:24:00 72.576 kg [facility] [place] [facility] BMI 2020-10-21 13:24:00 25.82 kg/m2 [facility] [place] [facility] Systolic blood 2020-07-26 19:53:00 137 mm[Hg] Univer sity of pressure [place] [facility] Diastolic blood 2020-07-26 19:53:00 88 mm[Hg] Unive rsity of pressure [place] [facility] Heart rate 2020-07-26 19:53:00 68 /min Universi ty [facility] [place] [facility] Body temperature 2020-07-26 19:53:00 36.94 Liv Univ ersity of [place] [facility] Respiratory rate 2020-07-26 19:53:00 18 /min Univ ersity of [place] [facility] Body height 2020-07-26 19:53:00 165.1 cm [facility]i [facility] [place] [facility] Body weight 2020-07-26 19:53:00 76.204 kg [facility]i [facility] [place] [facility] BMI 2020-07-26 19:53:00 27.96 kg/m2 [facility] [place] [facility] Systolic blood 2020-07-26 19:53:00 137 mm[Hg] Univer sity of pressure [place] [facility] Diastolic blood 2020-07-26 19:53:00 88 mm[Hg] Unive rsity of pressure [place] [facility] Heart rate 2020-07-26 19:53:00 68 /min Universi ty [facility] [place] [facility] Body temperature 2020-07-26 19:53:00 36.94 Liv Univ ersity of [place] [facility] Respiratory rate 2020-07-26 19:53:00 18 /min Univ ersity of [place] [facility] Body height 2020-07-26 19:53:00 165.1 cm [facility]i [facility] [place] [facility] Body weight 2020-07-26 19:53:00 76.204 kg [facility] [place] [facility] BMI 2020-07-26 19:53:00 27.96 kg/m2 [facility] [place] [facility] Systolic blood 2020-05-25 19:48:00 125 mm[Hg] Univer sity of pressure [place] [facility] Diastolic blood 2020-05-25 19:48:00 85 mm[Hg] Unive rsity of pressure [place] [facility] Heart rate 2020-05-25 19:48:00 73 /min Universi ty [facility] [place] [facility] Respiratory rate 2020-05-25 19:48:00 19 /min Univ ersity of [place] [facility] Body height 2020-05-25 19:48:00 165.1 cm [facility]i ty [facility] [place] [facility] Body weight 2020-05-25 19:48:00 77.474 kg [facility]i [facility] [place] [facility] BMI 2020-05-25 19:48:00 28.42 kg/m2 [facility] [place] [facility] Oxygen saturation in 2020-05-25 19:48:00 97 /min University of Arterial blood by [facility] Pulse oximetry Branch Systolic blood 2020-05-21 19:31:00 146 mm[Hg] Univer sity of pressure [place] [facility] Diastolic blood 2020-05-21 19:31:00 90 mm[Hg] Unive rsity of pressure [place] [facility] Heart rate 2020-05-21 19:31:00 78 /min Universi ty [facility] [place] [facility] Oxygen saturation in 2020-05-21 19:31:00 99 /min University of Arterial blood by [facility] Pulse oximetry Branch Body height 2020-05-21 19:23:00 167.6 cm Universi ty [facility] [place] [facility] Body weight 2020-05-21 19:23:00 76.975 kg Universi ty [facility] [place] [facility] BMI 2020-05-21 19:23:00 27.41 kg/m2 [facility] [place] [facility] Systolic blood 2020-03-16 16:20:00 142 mm[Hg] Univer sity of pressure [place] [facility] Diastolic blood 2020-03-16 16:20:00 84 mm[Hg] Unive rsity of pressure [facility] [place] [facility] Heart rate 2020-03-16 16:20:00 77 /min Universi ty of [facility] Body temperature 2020-03-16 16:20:00 36.56 Liv Univ ersity of [facility] [place] [facility] Respiratory rate 2020-03-16 16:20:00 14 /min Univ ersity of [facility] [place] [facility] Oxygen saturation in 2020-03-16 16:20:00 99 /min [facility] Arterial blood by [facility] Pulse oximetry Branch Body height 2020-03-12 18:40:00 167.6 cm Universi ty of [facility] Body weight 2020-03-12 18:40:00 72.576 kg Universi ty of [facility] [place] [facility] BMI 2020-03-12 18:40:00 25.84 kg/m2 Universi ty of [facility] Systolic blood 2019-09-03 20:23:00 124 mm[Hg] Univer sity of pressure [facility] Diastolic blood 2019-09-03 20:23:00 81 mm[Hg] Unive rsity of pressure [facility] Heart rate 2019-09-03 20:23:00 70 /min Universi ty of [facility] [place] [facility] Body height 2019-09-03 20:23:00 167.6 cm [facility] [place] [facility] [place] Body weight 2019-09-03 20:23:00 72.576 kg stated Universi ty of [facility] [place] [facility] BMI 2019-09-03 20:23:00 25.82 kg/m2 Universi ty of [facility] [place] [facility] Systolic blood 2019-04-16 14:10:00 129 mm[Hg] Univer sity of pressure [facility] Diastolic blood 2019-04-16 14:10:00 86 mm[Hg] Unive rsity of pressure [facility] Heart rate 2019-04-16 14:10:00 69 /min Universi ty of [facility] Body height 2019-04-16 14:10:00 162.6 cm [facility] [place] [facility] [place] Body weight 2019-04-16 14:10:00 72.122 kg Universi ty of [facility] [place] [facility] BMI 2019-04-16 14:10:00 27.29 kg/m2 Universi ty of [facility] [place] [facility] Systolic blood 2019-04-09 16:11:00 124 mm[Hg] Univer sity of pressure [facility] [place] [facility] Diastolic blood 2019-04-09 16:11:00 87 mm[Hg] Unive rsity of pressure [facility] Heart rate 2019-04-09 16:11:00 70 /min Universi ty of [facility] Respiratory rate 2019-04-09 16:11:00 19 /min Univ ersity of [facility] Body height 2019-04-09 16:11:00 162.6 cm Universi ty of [facility] [place] [facility] Body weight 2019-04-09 16:11:00 71.487 kg Universi ty of [facility] [place] [facility] BMI 2019-04-09 16:11:00 27.05 kg/m2 Universi ty of [facility] Oxygen saturation in 2019-04-09 16:11:00 99 /min University Arterial blood by [facility] Pulse oximetry Branch Systolic blood 2019-04-07 20:17:00 131 mm[Hg] Univer sity of pressure [facility] Diastolic blood 2019-04-07 20:17:00 83 mm[Hg] Unive rsity of pressure [facility] Body height 2019-04-07 20:17:00 162.6 cm Universi ty of [facility] [place] [facility] Systolic blood 2018-10-04 14:39:00 136 mm[Hg] [facility] of pressure Medicine Diastolic blood 2018-10-04 14:39:00 91 mm[Hg] [facility] of pressure Medicine Heart rate 2018-10-04 14:39:00 78 /min [facility] Body height 2018-10-04 14:39:00 [facility].1 cm [facility] Body weight 2018-10-04 14:39:00 71.215 kg [facility] BMI 2018-10-04 14:39:00 26.13 kg/m2 [facility] Systolic blood 2018-10-04 14:39:00 136 mm[Hg] [facility] of pressure Medicine Diastolic blood 2018-10-04 14:39:00 91 mm[Hg] [facility] of pressure Medicine Heart rate 2018-10-04 14:39:00 78 /min [facility] Body height 2018-10-04 14:39:00 165.1 cm [facility] Body weight 2018-10-04 14:39:00 71.215 kg [facility] BMI 2018-10-04 14:39:00 26.13 kg/m2 [facility] Procedures Procedure Date / Time Performing Clinician Source Performed EXTERNAL PROVIDER 2020-08-19 05:01:00 Doctor Unassigned, No [facility] Name Medical Branch AUTHORIZATION TO RELEASE 2020-07-26 05:01:00 Doctor Unassigned, No [facility] PHI TO [facility] Name Medical Branch AUTHORIZATION FOR 2020-06-30 05:01:00 Doctor Unassigned, No [facility] RELEASE OF PHI Name Medical Branch ASSIGNMENT OF BENEFITS 2020-05-21 17:30:55 Doctor Unassigned, No [facility] Medical Branch [place] TIME OR 2020-03-16 14:50:00 Jed Coppola [facility] (NON-REPORTABLE) Medical Branch DAY SURGERY - ADC 2020-03-16 06:01:00 Doctor Unassigned, No [facility] XR CHEST 2 VW 2020-03-15 19:38:24 Jed Coppola [facility] Medical [place] NOTICE OF PRIVACY 2020-03-15 19:19:39 Doctor Unassigned, No [facility] PRACTICES Name Medical Branch CONSENT/REFUSAL FOR 2020-03-15 19:19:16 Doctor Unassigned, [facility] Medical Branch ASSIGNMENT OF BENEFITS 2020-03-15 19:18:57 Doctor Unassigned, No [facility] Medical [place] DSU PRE-OP 2020-03-11 06:01:00 Doctor Unassigned, No [facility] Medical Branch XRAY Spine Thoracic 4+ 2020-03-08 00:00:00 [facility] views [id number] Spine lumbar wo 2020-03-08 00:00:00 [facility] contrast [id number] Physicians MRI Spine thoracic wo 2020-03-08 00:00:00 [facility] contrast [id number] Physicians REFERRAL- 2019-08-11 05:01:00 Doctor Unassigned, No [facility] REQUEST/RESPONSE Name Medical Branch AUTHORIZATION FOR 2019-07-26 05:01:00 Doctor Unassigned, No Univ [facility] RELEASE OF PHI [facility] MR KEY LEFT WO CONTRAST 2019-07-17 13:55:24 Jed Coppola [facility] ASSIGNMENT OF BENEFITS 2019-04-07 19:58:22 Doctor Unassigned, No [facility] EXTERNAL PROVIDER - ADC 2019-03-11 06:01:00 Doctor Unassigned, N o [facility] REFERRAL [facility] Plan of Care Planned Activity Planned Date Details Comments Source Future Scheduled Test HIV SCREENING [code = [facility] HIV SCREENING] Medicine Future Scheduled Test CERVICAL CANCER [facility] 3 YEAR Medicine FOLLOW UP [code = CERVICAL CANCER SCREENING 3 YEAR FOLLOW UP] Future Scheduled Test FLU VACCINE > 6 [facility] [code = FLU Medicine VACCINE > 6 MONTHS] Future Scheduled Test MAMMOGRAM ANNUAL [facility] [code = MAMMOGRAM Medicine ANNUAL] Future Scheduled Test TETANUS SHOT (ADULT) [facility] [code = TETANUS SHOT Medicin e (ADULT)] Future Scheduled Test BMI FOLLOW UP PLAN [facility] [code = BMI FOLLOW UP Medici ne PLAN] Encounters Start End Encounter Admission Attending Care Care Encounter Source Date/Time Date/Time Type Type Clinicians Facility Department ID 2020-12-18 Outpatient Feliciano COPPOLA JR [facility] LENKA [id number] Univers 18:39:16 JED [facility] 2020-01-25 Inpatient HCAPM JESSICA [id number] [facility] 11:31:00 [facility] [place] 2016-12-11 Inpatient [facility] [id number] H arris 19:13:58 [facility] 2016-11-22 Inpatient [facility] [id number] H arris 15:22:01 [facility] 2016-11-21 Inpatient [facility] HHS [id number] H arris 01:48:38 [facility] 2016-11-21 Inpatient [facility] [id number] H arris 01:48:30 [facility] 2016-11-20 Inpatient HHS LENKA [id number] H arris 05:55:00 [facility] 2021-07-26 2021-07-26 Outpatient Feliciano WILL [facility] [id number] Univers 09:30:00 09:30:00 LUIS [id number] [facility] 2020-11-04 2020-11-04 Outpatient Feliciano STUART [facility] [id number] Univers 08:30:00 08:30:00 [facility] [id number] [facility] 2020-11-04 2020-11-04 Outpatient Feliciano NARCISO [facility] [id number] Univers 08:30:00 08:30:00 OLMAN [facility] 2020-11-02 2020-11-02 Outpatient Feliciano TICO [facility] [id number] Univers 08:30:00 08:30:00 BAKARI [id number] [facility] 2020-11-02 2020-11-02 Outpatient Feliciano TICO [facility] [id number] Univers 08:30:00 08:30:00 BAKARI [facility] 2020-10-28 2020-10-28 Outpatient Feliciano TICO [facility] [id number] Univers 16:15:00 16:15:00 BAKARI [id number] [facility] 2020-10-28 2020-10-28 Outpatient Feliciano DOSHI [facility] [id number] Univers 16:15:00 16:15:00 BAKARI [facility] 2020-10-21 2020-10-21 Office Bakari Doshi [facility] [id number] Univers 08:12:07 08:27:07 Visit Olman Stuart [facility] [id number] [facility] [id number] [place] Burke?Blea [phone] [address] Medical Office Building 2020-10-21 2020-10-21 Outpatient Feliciano STUART [facility] [id number] Univers 08:15:00 08:15:00 OLMAN [id number] [facility] 2020-10-21 2020-10-21 Outpatient Feliciano STUART [facility] [id number] Univers 08:15:00 08:15:00 OLMAN [facility] 2020-09-02 2020-09-02 Outpatient [facility] [id number] 00:00:00 00:00:[address] [facility] [facility] 2020-08-19 2020-08-19 Orders Doctor ADAMS [id number] 00:00:00 00:00:00 Only Unassigned, KAIT [id number] [facility] [id number] 2020-08-19 2020-08-19 Orders Doctor BRYAN [id number] Univers 00:00:00 00:00:00 Only Unassigned, KAIT [id number] ity of [place] [facility] [id number] [place] as [phone] [address] 2020-08-12 2020-08-12 [facility] [id number] 00:00:00 00:00:00 Management Luis Flaherty [id number] [place] [id number] Professio [phone] [address] 2020-08-12 2020-08-12 [facility] [id number] [facility] 00:00:00 00:00:00 Management Luis Flaherty [id number] ity [id number] [place] [id number] Pa dical [address] 2020-07-27 2020-07-27 [facility] [id number] Univers 11:30:00 11:30:00 SENDIL [id number] [facility] 2020-07-27 2020-07-27 Outpatient Feliciano HEADLEY [facility] [id number] Univers 11:30:00 11:30:00 [facility] 2020-07-26 2020-07-26 [facility] [id number] 14:43:48 15:35:48 Visit Luis Flaherty [id number] [place] [id number] Professio [phone] [address] 2020-07-26 2020-07-26 Office [facility] [id number] [facility] 14:43:48 15:35:48 Visit Luis Flaherty [id number] i ty of [place] [id number] [place] [id number] Pa dic[address] 2020-07-26 2020-07-26 Outpatient R NICOLETTE [facility] [id number] Univers 10:45:00 10:45:00 LUIS [id number] [facility] 2020-07-26 2020-07-26 [facility] [id number] [facility] 10:45:00 10:45:00 LUIS [facility] 2020-07-26 2020-07-26 Orders Doctor BRYAN [id number] 00:00:00 00:00:00 Only Unassigned, KAIT [id number] [place] [facility] [id number] [id number] [facility] 2020-07-26 2020-07-26 [facility] [id number] 00:00:00 00:00:00 Luis Flaherty [id number] [place] [id number] Professio [id number] [address] 2020-07-26 2020-07-26 Orders Doctor BRYAN [id number] [place] [address] 00:00:00 00:00:00 Only Unassigned, KAIT [id number] ity of [place] [facility] [id number] [place] [phone] [address] 2020-07-26 2020-07-26 Telephone [facility] [id number] Univers 00:00:00 00:00:00 Luis Flaherty [id number] i ty [id number] [phone] [address] 2020-07-09 2020-07-09 Outpatient R NOREEN [facility] [id number] Univers 13:30:00 13:30:00 DELMAR [id number] [facility] 2020-07-09 2020-07-09 Outpatient R [facility] [id number] Univers 13:15:00 13:15:00 ity of [facility] 2020-07-06 2020-07-06 Outpatient [facility] [id number] Memoria 05:25:00 05:25:00 [facility] 2020-06-30 2020-06-30 Orders Doctor BRYAN [id number] 00:00:00 00:00:00 Only Unassigned, KAIT [id number] [place] [facility] [id number] 2020-06-30 2020-06-30 Orders Doctor BRYAN [id number] Univers 00:00:00 00:00:00 Only Unassigned, KAIT [id number] ity of [place] [facility] [id number] [place] [phone] [facility] 009 [place] 2020-06-29 2020-06-29 Telephone Popeye Painter 1.2.840.114 [id number] Univers 00:00:00 00:00:00 , Libra Hutrado Cuevas [id number] ity [place] [id number] [place] [phone] [facility] 086 Isabela 2020-06-23 2020-06-23 Outpatient Feliciano [facility] [id number] Univers 10:00:00 10:00:00 SENDIL [id number] ity [facility] 2020-06-23 2020-06-23 Outpatient Feliciano HEADLEY [facility] [id number] Univers 10:00:00 10:00:00 [facility] 2020-06-23 Outpatient Feliciano HEADLEY [facility] [id number] Univers 09:30:00 09:30:00 [facility] 2020-06-18 2020-06-18 Out[facility] [id number] [place] 00:00:00 00:00:00 KADE [facility] 2020-06-18 2020-06-18 [facility] [id number] [place] 00:00:00 00:00:00 KADE 534 Method i 2020-06-10 2020-06-10 Outpatient JACKIE [facility] [id number] [place] 00:00:00 00:00:00 KADE 046 Method i 2020-06-10 2020-06-10 Outpatient JACIKE [facility] [id number] [place] 00:00:00 00:00:00 KADE 067 Method i 2020-06-10 2020-06-10 Outpatient JACKIE [facility] [id number] [place] 00:00:00 00:00:00 KADE 079 Method i 2020-06-10 2020-06-10 Outpatient JACKIE [facility] [id number] [place] 00:00:00 00:00:00 KADE 096 Method i 2020-06-01 2020-06-01 [facility]phone [facility] 1.2.635.681 [id number] Univers 00:00:00 00:00:00 Sendil Marianna Flaherty 350.1.13.10 [place] [phone] Pa dicid nal [address] [place] [address] 2020-05-25 2020-05-25 Office Kayode [facility] 1.2.840.114 [id number] Univers 14:27:03 15:53:37 Visit Geraldo Flaherty 350.1.13.10 [place] [phone] Pa dicid nal [address] [place] [address] 2020-05-25 2020-05-25 Outpatient R KAYODE [facility] [id number] Univers 15:00:00 15:00:00 [facility]IL [id number] [facility] 2020-05-25 2020-05-25 Outpatient R KAYODE [facility] [id number] Univers 15:00:00 15:00:00 SENDIL [facility] 2020-05-21 2020-05-21 Outpatient Feliciano SORTO [facility] [id number] Univers 14:15:00 14:15:00 DELMAR [id number] ity of [facility] 2020-05-21 2020-05-21 Outpatient R NOREEN [facility] [id number] Univers 14:15:00 14:15:00 DELMAR ity of [facility] 2020-05-21 2020-05-21 Ancillary Qiana Romeo [facility] 1.2.840.114 [id number] Univers 12:32:23 13:17:23 Visit Amie Vanegas 350.1.13.1 0 ity of [facility] [place].2.[place] [phone] [facility] [address] 2020-05-21 2020-05-21 Office Noreen [facility] 1.2.424.631 [id number] Univers 12:32:45 12:47:45 Visit Delmar SERRATO 350.1.13.10 i ty of [facility] [place].2.[place] [id number] [facility] [address] 2020-05-21 2020-05-21 Orders Doctor BRYAN 1.2.840.114 [id number] Univers 00:00:00 00:00:00 Only Unassigned, KAIT 350.1.13.10 ity of [facility] 4.2.7.2.686 [place] as [phone] [facility] [address] 2020-03-16 2020-03-16 [facility] 1.2.840.114 [id number] Univers 06:27:00 10:38:00 Encounter Jed Flaherty 350.1.13.10 [place] [phone] [facility] [address] 2020-03-16 2020-03-16 Orders Doctor BRYAN 1.2.840.114 [id number] Univers 00:00:00 00:00:00 Only Unassigned, KAIT 350.1.13.10 ity of [facility] 4.2.7.2.686 [place] as [phone] [facility] [address] 2020-03-15 2020-03-15 [facility] 1.2.840.114 [id number] Univers 12:45:00 23:59:00 Encounter Jed Flaherty 350.1.13.10 ity of [place] 4.2.7.2.686 [facility] [phone] [facility] [address] 2020-03-15 2020-03-15 Radiologic Technologist Chief Sony, Adc Lab Main [facility] 1.2.8 40.114 [id number] Univers 13:22:26 13:37:26 Visit Jed Coppola 350.1.13.10 ity of [place] 4.2.7.2.686 [facility] Professio [phone] Pa dical [facility] [address] Building 2020-03-15 2020-03-15 Laboratory Only, Adc Test [facility] 1.2.840. 114 [id number] Univers 13:19:31 13:34:31 Only Jed Coppola 350.1.13.10 ity of [place] 4.2.7.2.686 [facility] [phone] [facility] [address] 2020-03-15 2020-03-15 Outpatient R [facility] [id number] Univers 12:15:00 12:15:00 [id number] [facility] 2020-03-15 2020-03-15 Outpatient R ANAT CURTIS, [facility] [id number] Univers 12:15:00 12:15:00 JED [facility] 2020-03-08 2020-03-08 AppointANTON Belle PM&R [facility] [id number] Univers 08:30:00 08:30:00 t; Albina [facility]UERTE [facility] [place] [facility] M.D. ans 2020-02-04 2020-02-04 Outpatient [facility] [id number] Univers 09:30:00 09:30:00 [id number] [facility] 2020-02-04 2020-02-04 Outpatient R SERGIO, [facility] [id number] Univers 09:30:00 09:30:00 MANAV [facility] 2020-01-29 2020-01-29 Outpatient JACKIE [facility] [id number] [place] 00:00:00 00:00:00 KADE 627 Method i 2020-01-29 2020-01-29 Outpatient JACKIE [facility] [id number] [place] 00:00:00 00:00:00 KADE [address] 2019-12-15 2019-12-15 Outpatient R [facility] [id number] Univers 11:00:00 11:00:00 [id number] [facility] 2019-12-15 2019-12-15 Outpatient [facility] [id number] Univers 11:00:00 11:00:00 HELEN [facility] 2019-12-03 2019-12-03 Outpatient R [facility] [id number] Univers 10:30:00 10:30:00 [id number] [facility] 2019-12-03 2019-12-03 Outpatient [facility] [id number] Univers 10:30:00 10:30:00 MANAV [facility] 2019-11-05 2019-11-05 Outpatient [facility] [id number] Memoria 05:21:00 05:21:00 l [facility] 2019-09-26 2019-10-21 Office [place], Luisito UNIVERSIT 1.2.840. 114 [id number] Univers 15:30:31 21:51:55 Visit Danielle Brasher [facility] 350.1.13.1 0 ity of CLINICS 4.2.7.2.686 [place] [phone] [address] 2019-10-07 2019-10-07 Outpatient [facility] [id number] Memoria 09:00:00 09:00:00 petros [facility] 2019-09-26 2019-09-26 Outpatient R [facility] [id number] Univers 16:00:00 16:00:00 [facility] 2019-09-26 2019-09-26 Outpatient [facility] [id number] Univers 16:00:00 16:00:00 DANIELLE [facility] 2019-09-09 2019-09-09 Outpatient JACKIE [facility] [id number] 00:00:00 00:00:00 KADE 274 Method i 2019-09-09 2019-09-09 Outpatient JACKIE [facility] [id number] [place] 00:00:00 00:00:00 KADE 805 Method i 2019-09-09 2019-09-09 Outpatient JACKIE [facility] [id number] 00:00:00 00:00:00 KADE 277 Method i 2019-09-03 2019-09-03 Office [facility] 1.2.752.893 [id number] Univers 15:15:59 15:55:48 Visit [facility] 350.1.13.10 y of Surgical 4.2.7.2.686 [place] as Specialti [phone] Pa dical [address] 2019-09-03 2019-09-03 Outpatient [facility] [id number] Univers 15:30:00 15:30:00 OLMAN [id number] [facility] 2019-09-03 2019-09-03 Outpatient [facility] [id number] Univers 15:30:00 15:30:00 OLMAN [facility] 2019-09-01 2019-09-01 Outpatient R [facility] [id number] Univers 13:45:00 13:45:00 OLMAN [id number] [facility] 2019-09-01 2019-09-01 Outpatient R [facility] [id number] Univers 13:45:00 13:45:00 OLMAN [facility] 2019-09-01 2019-09-01 Outpatient JACKIE [facility] [id number] 00:00:00 00:00:00 KADE 795 Method i 2019-09-01 2019-09-01 Outpatient JACKIE [facility] [id number] 00:00:00 00:00:00 KADE 698 Method i 2019-08-14 2019-08-14 Outpatient R [facility] [id number] Univers 13:33:10 23:59:00 [facility] 2019-08-14 2019-08-14 [facility] 1.2.840.114 [id number] Univers 13:33:00 23:59:00 Encounter Olman Rodriguezton 350.1.13.10 [place] [facility] [place] [facility].2.7.2.686 [facility] [phone] [facility] 804 [place] 2019-08-14 2019-08-14 Outpatient [facility] [id number] Univers 00:00:00 00:00:00 OLMAN [id number] ity of [facility] 2019-08-11 2019-08-11 Orders Doctor BRYAN 1.2.840.114 [id number] Univers 00:00:00 00:00:00 Only Unassigned, KAIT 350.1.13.10 ity of [facility] 4.2.7.2.686 [place] as [phone] [address] 2019-08-01 2019-08-01 Telephone [facility] 1.2.840.114 [id number] Univers 00:00:00 00:00:00 Olman Hurtado [facility] 350.1.13.10 it y of Surgical 4.2.7.2.686 [place] as Specialti [phone] Pa dical es 198 [facility] 2019-07-29 2019-07-29 Outpatient Feliciano [facility] [id number] Univers 16:15:00 16:15:00 BAKARI [id number] ity of [facility] 2019-07-29 2019-07-29 Outpatient Feliciano [facility] [id number] Univers 16:15:00 16:15:00 BAKARI ity of [facility] 2019-07-26 2019-07-26 Orders Doctor ADMAS 1.2.840.114 [id number] Univers 00:00:00 00:00:00 Only Unassigned, KAIT 350.1.13.10 ity of [facility] 4.2.7.2.686 [place] as [id number] [address] 2019-07-17 2019-07-17 Outpatient Feliciano COPPOLA JR, [facility] [id number] Univers 07:41:46 23:59:00 JED ity of [facility] 2019-07-17 2019-07-17 [facility] 1.2.840.114 [id number] Univers 07:41:00 23:59:00 Encounter Jed Flaherty 350.1.13.10 ity [facility] 4.2.7.2.686 [facility] [phone] [facility] 804 [place] 2019-07-17 2019-07-17 Outpatient Feliciano COPPOLA JR, [facility] [id number] Univers 08:00:00 08:00:00 JED [id number] ity [facility] 2019-06-26 2019-06-26 Telephone [facility] 1.2.840.114 [id number] Univers 00:00:00 00:00:00 Olman Hurtado [facility] 350.1.13.10 it y of Surgical 4.2.7.2.686 [place] Specialti [phone] Pa dical es 198 [facility] 2019-05-22 2019-05-22 Outpatient R [facility] [id number] Univers 12:30:00 12:30:00 OLMAN ity [facility] 2019-05-15 2019-05-15 Telephone [facility] 1.2.840.114 [id number] Univers 00:00:00 00:00:00 Olman Hurtado Health 350.1.13.10 it y of Surgical 4.2.7.2.686 [place] Specialti [phone] [facility] es 198 [facility] 2019-05-05 2019-05-05 Outpatient R [facility] [id number] Univers 13:30:00 13:30:00 OLMAN [id number] ity [facility] 2019-05-05 2019-05-05 Telephone [facility] 1.2.840.114 [id number] Univers 00:00:00 00:00:00 Olman Hurtado Health 350.1.13.10 it y of Surgical 4.2.7.2.686 [place] Specialti [phone] Pa dicid es 198 [facility] 2019-04-23 2019-04-23 Outpatient R [facility] [id number] Univers 09:00:00 09:00:00 OLMAN ity [facility] 2019-04-16 2019-04-16 Laboratory Pc, Adc Echo Room 1 - [facility] 1 .2.840.114 [id number] Univers 07:58:59 08:40:23 Only Greg Samuel [place] 350.1.13.10 [place] [phone] Pa dical nal 059 [facility] 2019-04-16 2019-04-16 Outpatient R JIMMIE [facility] [id number] Univers 08:00:00 08:00:00 GREG ity o f [facility] 2019-04-09 2019-04-09 Office [facility] 1.2.840.114 [id number] Univers 09:48:56 10:42:21 Visit Greg [place] 350.1.13.10 [place] [phone] Pa dical nal 059 [facility] 2019-04-07 2019-04-09 Office [facility] 1.2.003.617 [id number] Univers 14:00:40 10:20:20 Visit Olman Hurtado [employer]Actionable 350.1.13.10 it y of Surgical 4.2.7.2.686 [place] Specialti [id number] Pa dical es 198 [facility] 2019-04-07 2019-04-07 Hospital [facility] 1.2.840.114 [id number] Univers 14:44:00 23:59:00 Encounter Olman Hurtado [employer]able 350.1.13.10 ity of Surgical 4.2.7.2.686 [place] Specialti [phone] Pa dical es 809 [facility] 2019-04-07 2019-04-07 Orders Doctor BRYAN 1.2.840.114 [id number] Univers 00:00:00 00:00:00 Only Unassigned, KAIT 350.1.13.10 ity of [facility] 4.2.7.2.686 [place] as [phone] [address] 2019-04-07 2019-04-07 Telephone [facility] 1.2.840.114 [id number] Univers 00:00:00 00:00:00 Olman Hurtado IActionable 350.1.13.10 it y of Surgical 4.2.7.2.686 [place] Specialti [phone] Pa dical es 198 [facility] 2019-03-11 2019-03-11 Orders Doctor BRYAN 1.2.840.114 [id number] Univers 00:00:00 00:00:00 Only Unassigned, KAIT 350.1.13.10 ity of [place] [facility] 4.2.7.2.686 [place] as [phone] [facility] 009 [place] 2019-01-01 2019-01-01 Appointmen ANTON KEN UTP [id number] Univers 14:00:00 14:00:00 t; BREANA KEN M.D. ity of [place] M.D. ans 2018-10-04 2018-10-04 Office CELE [place] 1.2.840.[id number] [place] [address] 09:32:10 10:24:11 Visit Tianna AMBULATOR 350.1.13.21 [place] Shawna Y 0.2.7.2.686 of [id number] [facility] 800 e 2018-10-04 2018-10-04 Office CELE [place] 1.2.840.114 [id number] 09:32:10 10:24:11 Visit Tianna AMBULATOR 350.1.13.21 Shawna Y 0.2.7.2.686 [phone] [facility] 2018-07-17 2018-07-17 Appointmen CIELO FOWLER, ANTON UTP [id number] Univers 11:00:00 11:00:00 t; Albina FOWLER ity of Albina [facility] [place] [facility] 2018-04-03 2018-04-03 Outpatient [facility] [id number] [place] 00:00:00 00:00:00 Health 2018-03-12 2018-03-12 [facility] [id number] 13:30:00 13:30:00 t [facility] 2018-01-09 2018-01-09 Outpatient [facility] [id number] [place] 00:00:00 00:00:00 Health 2017-12-26 2017-12-26 Outpatient [facility] [id number] [place] 00:00:00 00:00:00 Health 2017-12-25 2017-12-25 Outpatient [facility] [id number] [place] 00:00:00 00:00:00 Health 2017-11-21 2017-11-21 Outpatient [facility] [id number] [place] 12:12:10 12:12:10 Health 2017-11-19 2017-11-19 [facility] [id number] 09:00:00 09:00:00 t Bone [facility] 2017-11-16 2017-11-16 Outpatient [facility] [id number] [place] 08:30:23 08:30:23 Health 2017-11-12 2017-11-12 [facility] [id number] 14:22:00 14:22:00 t Bone [facility] 2017-11-12 2017-11-12 Outpatient [facility] [id number] [place] 00:00:00 00:00:00 Health 2017-11-08 2017-11-08 Outpatient [facility] [id number] [place] 00:00:00 00:00:00 [facility] 2017-11-05 2017-11-05 [facility] [id number] 10:03:00 10:03:00 t Bone [facility] 2017-10-29 2017-10-29 [facility] [id number] 08:00:00 08:00:00 t Bone [facility] 2017-10-11 2017-10-11 Outpatient [facility] [id number] [place] 09:34:54 09:34:54 Health 2017-10-10 2017-10-10 Outpatient [facility] [id number] [place] 00:00:00 00:00:00 Health 2017-10-03 2017-10-03 Outpatient [facility] [id number] [place] 00:00:00 00:00:00 Health 2017-09-28 2017-09-28 Outpatient [facility] [id number] [place] 06:43:36 06:43:36 Health 2017-09-28 2017-09-28 Outpatient [facility] [id number] [place] 00:00:00 00:00:00 [facility] 2017-09-28 2017-09-28 Outpatient [facility] [id number] [place] 00:00:00 00:00:00 [facility] 2017-09-26 2017-09-26 Outpatient [facility] [id number] [place] 13:42:42 13:42:42 [facility] 2017-09-26 2017-09-26 Outpatient [facility] [id number] [place] 00:00:00 00:00:00 [facility] 2017-09-21 2017-09-21 Outpatient [facility] [id number] [place] 00:00:00 00:00:00 [facility] 2017-09-19 2017-09-19 Outpatient [facility] [id number] [place] 14:50:01 14:50:01 [facility] 2017-09-19 2017-09-19 Outpatient [facility] [id number] [place] 13:16:35 13:16:35 [facility] 2017-09-12 2017-09-12 Outpatient [facility] [id number] [place] 00:00:00 00:00:00 [facility] 2017-08-24 2017-08-24 Outpatient [facility] [id number] [place] 09:22:38 09:22:38 [facility] 2017-07-27 2017-07-27 Outpatient [facility] [id number] [place] 10:35:47 10:35:47 [facility] 2017-07-05 2017-07-05 Outpatient [facility] [id number] [place] 12:15:23 12:15:23 [facility] 2017-07-03 2017-07-03 Outpatient [facility] [id number] [place] 00:00:00 00:00:00 [facility] 2017-05-23 2017-05-23 Outpatient [facility] [id number] [place] 13:13:44 13:13:44 [facility] 2017-05-02 2017-05-02 Outpatient [facility] [id number] [place] 00:00:00 00:00:00 [facility] 2017-04-25 2017-04-25 Outpatient [facility] [id number] [place] 09:01:53 09:01:53 [facility] 2017-04-17 2017-04-17 Outpatient [facility] [id number] [place] 06:05:00 06:05:00 [facility] 2017-04-17 2017-04-17 Outpatient [facility] [id number] [place] 00:00:00 00:00:00 [facility] 2017-04-16 2017-04-16 Outpatient [facility] [id number] [place] 00:00:00 00:00:00 [facility] 2017-04-13 2017-04-13 Outpatient [facility] [id number] [place] 09:12:04 09:12:04 [facility] 2017-04-03 2017-04-03 Outpatient [facility] [id number] [place] 00:00:00 00:00:00 [facility] 2017-03-27 2017-03-27 Outpatient [facility] [id number] [place] 06:15:00 06:15:00 [facility] 2017-03-27 2017-03-27 Outpatient [facility] [id number] [place] 00:00:00 00:00:00 [facility] 2017-03-19 2017-03-19 Outpatient [facility] [id number] [place] 13:22:16 13:22:16 [facility] 2017-03-19 2017-03-19 Outpatient [facility] [id number] [place] 00:00:00 00:00:00 [facility] 2017-03-12 2017-03-12 Outpatient [facility] [id number] [place] 13:45:55 13:45:55 [facility] 2017-03-09 2017-03-09 Outpatient [facility] [id number] [place] 00:00:00 00:00:00 [facility] 2017-03-08 2017-03-08 Outpatient [facility] [id number] [place] 16:03:22 16:03:22 [facility] 2017-03-08 2017-03-08 Outpatient [facility] [id number] [place] 14:45:05 14:45:05 [facility] 2017-02-23 2017-02-23 Outpatient [facility] [id number] [place] 10:41:02 10:41:02 [facility] 2017-02-23 2017-02-23 Outpatient [facility] [id number] [place] 08:11:53 08:11:53 [facility] 2017-02-23 2017-02-23 Outpatient [facility] [id number] [place] 07:53:43 07:53:43 [facility] 2017-02-23 2017-02-23 Outpatient [facility] [id number] [place] 00:00:00 00:00:00 [facility] 2017-02-08 2017-02-08 Outpatient [facility] [id number] [place] 12:32:00 12:32:00 [facility] 2017-01-24 2017-01-24 Outpatient [facility] [id number] [place] 00:00:00 00:00:00 [facility] 2017-01-23 2017-01-23 Outpatient [facility] [id number] [place] 12:16:30 12:16:30 [facility] 2017-01-22 2017-01-22 Outpatient [facility] [id number] [place] 11:30:20 11:30:20 [facility] 2017-01-15 2017-01-15 Outpatient [facility] [id number] [place] 00:00:00 00:00:00 [facility] 2017-01-09 2017-01-09 Outpatient [facility] [id number] [place] 09:09:26 09:09:26 [facility] 2017-01-04 2017-01-04 Outpatient [facility] [id number] [place] 14:36:02 14:36:02 [facility] 2017-01-02 2017-01-02 Outpatient [facility] [id number] [place] 08:36:10 08:36:10 [facility] 2016-12-27 2016-12-27 Outpatient [facility] [id number] [place] 11:33:15 11:33:15 [facility] 2016-12-22 2016-12-22 Outpatient [facility] [id number] [place] 09:02:45 09:02:45 [facility] 2016-12-11 2016-12-11 Outpatient [facility] [id number] [place] 09:01:19 09:01:19 [facility] 2016-12-11 2016-12-11 Inpatient [facility] [id number] [place] 14:16:44 00:00:00 [facility] 2016-12-07 2016-12-07 Outpatient [facility] [id number] [place] 00:00:00 00:00:00 [facility] 2016-12-06 2016-12-06 Outpatient [facility] [id number] [place] 14:40:31 14:40:31 [facility] 2016-12-04 2016-12-04 Outpatient [facility] [id number] Mayen 10:31:01 10:31:01 [facility] 2016-11-27 2016-11-27 Outpatient [facility] [id number] May[place] 00:00:00 00:00:00 [facility] 2016-11-20 2016-11-20 Outpatient [facility] [id number] Mayen 00:00:00 00:00:00 [facility] 2016-11-20 2016-11-20 Outpatient [facility] [id number] May[place] 00:00:00 00:00:00 [facility] 2016-11-17 2016-11-17 Outpatient [facility] [id number] Mayen 00:00:00 00:00:00 [facility] 2016-10-12 2016-10-12 Outpatient [facility] [id number] [place] 00:00:00 00:00:00 [facility] 2016-10-10 2016-10-10 Outpatient [facility] [id number] [place] 00:00:00 00:00:00 Health 2016-10-10 2016-10-10 Outpatient [facility] [id number] [place] 00:00:00 00:00:00 Health 2016-10-10 2016-10-10 Outpatient [facility] [id number] [place] 00:00:00 00:00:00 Health 2016-09-15 2016-09-15 Outpatient [facility] [id number] [place] 00:00:00 00:00:00 Health 2016-08-30 2016-08-30 Outpatient [facility] [id number] [place] 09:44:27 09:44:27 Health Results Test Test Test Results Result Source Description Time Comments Comments MRI Spine 2020-03- EXAM: Spine Thoracic wo [facility] 05 contrast MRIDATE: 03/26/2020 [place] contrast [id number] 14:45:00 14:47 CSTINDICATION: Physicians -Mid back painCOMPARISON: [...] 4+ 05 VIEWSDATE: 03/26/2020 13:31 [place] views [id number] 13:45:00 CSTINDICATION: - M54.9 Physicians Dorsalgia, unspecifiedCOMPARISON: [...] Spine lumbar 2020-03- EXAM: CT LUMBAR SPINE [facility] contrast 05 WITHOUT CONTRASTDATE: [place] [id number] 13:31:00 03/26/2020 13:35 Physicians CSTINDICATION: M54.5 Low [...] thesubarticular zone.--This report was dictated by a Railroad Maintenance Clerk/Fellow/Physician Tumbling And Rolling Supervisor. Ihave personallyreviewed the images as well as the interpretation and agree with the findings.Read by: Linus Argueta MD Resident/Fellow/PhysicianA ssistant: Linus Argueta MDDictated Date/time: 03/26/20 14:06Electronically Signed by: Vinh Ohara MD 03/29/2112:46FINAL REPORT MRI Spine thoracic wo contrast [id number] 2020-03-26 13:30:00 Test Item Value Reference Range Interpretation Comme nts Spine thoracic wo contrast MRI (test code = Cancel Reason: Duplicat e Order Spine thoracic wo contrast MRI) [facility] PhysiciansMT TIME OR (NON-REPORTABLE)2020-03-16 16:12:46 These images do not require a Radiology diagnostic report.[facility] 2 [id number] 21:13:01 No acute cardiopulmonary process is seen.PROCEDURE: XR CHEST 2 VW 03/15/2020 1:28 PM CLINICAL INDICATION: Acquired hallux valgus of right foot COMPARISON: None TECHNIQUE: PA and lateral views of the chest FINDINGS: The lungs are clear. There is no pleural effusion. ?No pneumothorax. The cardiac sizeis within normal limits. Surgical clips overlying anteriorchest wall. No aggressive osseous lesion. Cervicothoracic anterior spinal fusionpartially visualized. [facility], Radiant Results Inft User - 03/15/2020 3:14 PM CSTPROCEDURE: XR CHEST 2 VW 03/15/2020 1:28 PMCLINICAL INDICATION: Acquired hallux valgus of right foot COMPARISON: NoneTECHNIQUE: PA and lateral views of the chestFINDINGS:The lungs are clear. There is no pleural effusion. No pneumothorax. The cardiac size is within normal limits. Surgical clips overlying anteriorchest wall.No aggressive osseous lesion. Cervicothoracic anterior spinal fusionpartially visualized.IMPRESSIONNo acute cardiopulmonary process is seen.[facility] WO CONTRAST 2019-07-17 14:02:55HISTORY: ?Pain left foot pain. TECHNIQUE: MR imaging of the left foot was done in multiple projectionsusing 1.5T MR unit and standard protocol. FINDINGS: Changes of degenerative arthritis is noted in fi rsttarsometatarsal joint with subchondral degenerative cystic lesions in themedial cuneiform bone, osteophytes along the articular edges of the bonesand mild stress-induced marrow edema in the medial cuneiform.Mild degenerative changes are seen in the joint between the tibial sesamoidand head of the first metatarsal bone. Rest of the tarsal and metatarsal bones show normal findings. Visualized portions of the plantar fascia and plantar plate appear intact.No abnormality is appreciated in the plantargroup of muscles, plantartendons as well as dorsal extensor tendons. Tibialis posterior tendon,peroneal longus and peroneal brevis tendon are visualized and appearnormal. No definite MRI findings of interdigital Ferreira's neuroma visualized.Visualized portions of the ankle including deltoid ligament complex andATFL appear intact. CONCLUSIONS:1. 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 Otherwise normal MRI stud y of left foot. [facility], Radiant Results Inft User - 07/17/2019 9:04 AM CDTHISTORY: Pain left foot pain.TECHNIQUE: MR imaging of the left foot was done in multiple projectionsusing 1.5T MR unit and standard protocol.FINDINGS: Changes of degenerative arthritis is noted in firsttarsometatarsal joint with subchondral degenerative cystic lesions in themedial cuneiform bone, osteophytes along the articular edges of the bonesand mild stress-induced marrow edema in the medial cuneiform.Mild degenerative changes are seen in the joint between the tibial sesamoidand head of the first metatarsal bone.Rest of the tarsal and metatarsal bones show normal findings.Visualized portions of the plantar fascia and plantar plate appear intact.No abnormality is appreciated in the plantar group of muscles, plantartendons as well as dorsal extensor tendons. Tibialis posterior tendon,peroneal longus and peroneal brevis tendon are visualized and appearnormal.No definite MRI findings of interdigital Ferreira's neuroma visua lized.Visualized portions of the ankle including deltoid ligament complex andATFL appear intact.CONCLUSIONS:1. 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 Otherwise normal MRI study of left foot.[facility] [id number] 15:56:00Surgical Pathology Report Case: [id number] Authorizing Provider: Mai Nuñez MD Collected: 08/14/2018 1452 Ordering Location: [facility] Endoscopy Received: 08/15/2018 0833 Services Pathologist: [...] LYMPHOCYTES(SEE COMMENT) Signing Pathologist Direct Phone Line: [phone] signed by Elsy Collier MD on 08/19/2018 [...] including lymphocytic colitis. Clinical correlation is recommended. [id number] X 4, [id number] abdominal pain, LLQ abdominal pain A. Duodenum [...] areevaluated Immunohistochemistry technical testing was performed at [facility], Pathology Laboratory where it was [...] complexity clinical laboratory testing.RAD, ABDOMEN/KUB, 1 VIEW [id number] 16:12:00Reason for Exam:->epigastric abdominal painReason for Exam:->constipation, unspecified constipation typeFINAL REPORT Exam: Abdominal radiograph History: Constipation Comparison: None. Findings: Nonobstructive bowel gas pattern. Mild amount retained stool. Multiple surgical clips. Impression: No acute osseous abnormality Mild amount of retained stool Signed: Luisito Shafer MDReport Verified Date/Time: 04/16/2018 16:12:35
[2021-01-10] MEDS ORDERED: KETOROLAC 30 MG/ML INJ ONE (13:38)
[2021-01-10] MEDS ORDERED: METHYLPREDNISOLONE 125 MG INJ ONE (13:38)
[2021-01-10] MEDS ORDERED: HYDROCODONE/APAP 10/325 TAB ONE (13:38)
[2021-01-10] MEDS ORDERED: ONDANSETRON 4 MG/2 ML VIAL ONE (15:10)
--- NOTE | 2021-01-10 16:15 | EDPHYS ---
Physician Documentation [facility] Name: Mildred Caldwell Age: 45 yrs Sex: Female : 1975 Arrival Date: 01/10/2021 Time: 11:51 Bed 12 Private MD: ED Physician Tre Charles HPI: 01/10 16:47 This 45 yrs old Female presents to ER via EMS with complaints of Back Pain. kdr 16:47 The patient presents with pain that is acute, and contusion, and decreased range of kdr motion, and tenderness. The symptoms are located in the low back, Low back. Onset: The symptoms/episode began/occurred As noted above. The pain does not radiate. Associated signs and symptoms: The patient has no apparent associated signs or symptoms. The problem was sustained from twisting, from unknown cause. Modifying factors: The patient symptoms are alleviated by Laying on her side and remaining still, the patient symptoms are aggravated by any movement. Severity of symptoms: At their worst the symptoms were mild. The patient has experienced similar episodes in the past, multiple times. The patient has not recently seen a physician. Patient has chronic back issues and periodically 2-3 times a year, is in the ED for treatment. In the recent few days she has had increasing pain and today feels as if she is throwing her back out again. She is unable to get off the stretcher without significant assistance and at a very slow rate. She denies any loss of control of bowel or bladder. She denies that the current exacerbation is any different than prior episodes. 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 - Social history:: Smoking status: Patient denies any tobacco usage or history of. ROS: 17:04 Constitutional: Negative for fever, chills, and weight loss, Eyes: Negative for injury, kdr pain, redness, and discharge, Neck: Negative for injury, pain, and swelling, Cardiovascular: Negative for chest pain, palpitations, and edema, Respiratory: Negative for shortness of breath, cough, wheezing, and pleuritic chest pain, Abdomen/GI: Negative for abdominal pain, nausea, vomiting, diarrhea, and constipation, : Negative for injury, bleeding, discharge, and swelling, MS/Extremity: Negative for injury and deformity, Skin: Negative for injury, rash, and discoloration, Neuro: Negative for headache, weakness, numbness, tingling, and seizure activity. Psych: Negative for depression, anxiety, suicide ideation, homicidal ideation, and hallucinations, Allergy/Immunology: Negative for hives, rash, and allergies, Endocrine: Negative for neck swelling, polydipsia, polyuria, polyphagia, and marked weight changes, Hematologic/Lymphatic: Negative for swollen nodes, abnormal bleeding, and unusual bruising. 17:04 Back: Positive for pain at rest, pain with movement, of the low back area. Exam: 17:04 Constitutional: This is a well developed, well nourished patient who is awake, alert, kdr and in no acute distress. Head/Face: Normocephalic, atraumatic. Eyes: Pupils equal round and reactive to light, extra-ocular motions intact. Lids and lashes normal. Conjunctiva and sclera are non-icteric and not injected. Cornea within normal limits. Periorbital areas with no swelling, redness, or edema. Neck: Trachea midline, no thyromegaly or masses palpated, and no cervical lymphadenopathy. Supple, full range of motion without nuchal rigidity, or vertebral point tenderness. No Meningismus. Chest/axilla: Normal chest wall appearance and motion. Nontender with no deformity. No lesions are appreciated. Cardiovascular: Regular rate and rhythm with a normal S1 and S2. No gallops, murmurs, or rubs. Normal PMI, no JVD. No pulse deficits. Respiratory: Lungs have equal breath sounds bilaterally, clear to auscultation and percussion. No rales, rhonchi or wheezes noted. No increased work of breathing, no retractions or nasal flaring. Abdomen/GI: Soft, non-tender, with normal bowel sounds. No distension or tympany. No guarding or rebound. No evidence of tenderness throughout. Skin: Warm, dry with normal turgor. Normal color with no rashes, no lesions, and no evidence of cellulitis. MS/ Extremity: Pulses equal, no cyanosis. Neurovascular intact. Full, normal range of motion. Neuro: Awake and alert, GCS 15, oriented to person, place, time, and situation. Cranial nerves II-XII grossly intact. Motor strength 5/5 in all extremities. Sensory grossly intact. Cerebellar exam normal. Normal gait. Psych: Awake, alert, with orientation to person, place and time. Behavior, mood, and affect are within normal limits. 17:04 Back: pain, that is moderate, that is severe, of the low back area, ROM is painful, with all movement, normal spinal alignment noted, CVA tenderness, is absent, vertebral tenderness, is appreciated at L1, L2, L3, L4, L5 and lumbar spine. Vital Signs: 15:18 BP 146 / 70; Pulse 82; Resp 18; Temp 98.6(O); Pulse Ox 100% on R/A; ld1 MDM: 16:15 Patient medically screened. kdr 17:04 Data reviewed: vital signs, nurses notes, lab test result(s), radiologic studies. kdr Counseling: I had a detailed discussion with the patient and/or guardian regarding: the historical points, exam findings, and any diagnostic results supporting the discharge/admit diagnosis, lab results, radiology results, the need for outpatient follow up. Medical screen evaluation completed. EMTALA emergency medical condition absent. Administered Medications: 13:52 Drug: Ketorolac 15 mg Route: IVP; Site: right antecubital; ld1 13:52 Follow up: Response: No adverse reaction ld1 13:52 Drug: Robaxin (methocarbamol) 1 grams Route: IVPB; Infused Over: 1 hrs; Site: right ld1 antecubital; 13:52 Follow up: Response: No adverse reaction ld1 14:20 Follow up: IV Status: Completed infusion iw 13:52 Drug: SOLU-Medrol (methylPrednisoLONE) 125 mg Route: IVP; Site: right antecubital; ld1 13:52 Follow up: Response: No adverse reaction ld1 13:52 Drug: [place] (HYDROcodone-acetaminophen) 10 mg-325 mg 1 tabs Route: PO; ld1 13:52 Follow up: Response: No adverse reaction ld1 15:16 Drug: Zofran (Ondansetron) 4 mg Route: IVP; Site: right hand; ld1 15:16 Follow up: Response: No adverse reaction ld1 Disposition Summary: 01/10/21 16:15 Discharge Ordered Location: Home kdr Problem: an acute exacerbation kdr Symptoms: have improved kdr Condition: Stable kdr Diagnosis - Low back pain kdr Followup: kdr - With: Private Physician - When: 2 - 3 days - Reason: If symptoms return, Further diagnostic work-up, Recheck today's complaints, Continuance of care, Re-evaluation by your physician Discharge Instructions: - Discharge Summary Sheet kdr - Musculoskeletal Pain kdr - Chronic Back Pain, Teer-to-Mwqv kdr - Back Exercises, [id number] kdr Forms: - Medication Reconciliation Form kdr - Thank You Letter kdr - Prescription Opioid Use kdr Prescriptions: - Ibuprofen 600 mg Oral Tablet - take 1 tablet by ORAL route every 6 hours As needed take with food; 30 tablet; kdr Refills: 0, Product Selection Permitted - Cyclobenzaprine 10 mg Oral Tablet - take 1 tablet by ORAL route every 8 hours As needed; 30 tablet; Refills: 0, kdr Product Selection Permitted - Tramadol 50 mg Oral Tablet - take 1 tablet by ORAL route every 8 hours As needed as needed; 12 tablet; kdr Refills: 0, Product Selection Permitted - Medrol ([place]) 4 mg Oral Tablets, Dose Pack - take 1 tablet by ORAL route as directed - follow package instructions; 1 kdr packet; Refills: 0, Product Selection Permitted Signatures: Tre Charles MD MD kdr Nany Sparks RN RN iw Casandra Piedra RN RN ld1
--- NOTE | 2021-01-10 16:15 | ER ---
Nurse's Notes [facility] [place], [place] Name: Mildred Caldwell Age: 45 yrs Sex: Female : 1975 Arrival Date: 01/10/2021 Time: 11:51 Bed 12 Private MD: Diagnosis: Low back pain Presentation: 01/10 11:52 Chief complaint: EMS states: has chronic back issues with fusion, today she threw her iw back out again. Coronavirus screen: At this time, the client does not indicate any symptoms associated with coronavirus-19. Ebola Screen: Patient negative for fever greater than or equal to 101.5 degrees Fahrenheit, and additional compatible Ebola Virus Disease symptoms Patient denies exposure to infectious person. Patient denies travel to an Ebola-affected area in the 21 days before illness onset. No symptoms or risks identified at this time. Initial Sepsis Screen: Does the patient meet any 2 criteria? No. Patient's initial sepsis screen is negative. Does the patient have a suspected source of infection? No. Patient's initial sepsis screen is negative. Risk Assessment: Do you want to hurt yourself or someone else? Patient reports no desire to harm self or others. Onset of symptoms was January 10, 2021. 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 - Social history:: Smoking status: Patient denies any tobacco usage or history of. Screenin:53 Abuse screen: Denies threats or abuse. Denies injuries from another. Nutritional ld1 screening: No deficits noted. Tuberculosis screening: No symptoms or risk factors identified. Fall Risk None identified. Assessment: 13:53 General: Appears in no apparent distress. uncomfortable, Behavior is calm, cooperative, ld1 appropriate for age. Pain: Complains of pain in back Pain does not radiate. Pain currently is 9 out of 10 on a pain scale. Quality of pain is described as throbbing, Pain began gradually, Is continuous. Neuro: Level of Consciousness is awake, alert, obeys commands, Oriented to person, place, time, situation, Appropriate for age. Cardiovascular: Capillary refill < 3 seconds Patient's skin is warm and dry. Respiratory: Airway is patent Respiratory effort is even, unlabored, Respiratory pattern is regular, symmetrical. GI: Abdomen is flat, non-distended. : No signs and/or symptoms were reported regarding the genitourinary system. EENT: No signs and/or symptoms were reported regarding the EENT system. Derm: No signs and/or symptoms reported regarding the dermatologic system. Musculoskeletal: No signs and/or symptoms reported regarding the musculoskeletal system. Vital Signs: 15:18 BP 146 / 70; Pulse 82; Resp 18; Temp 98.6(O); Pulse Ox 100% on R/A; ld1 ED Course: 11:51 Patient arrived in ED. iw 11:53 Triage completed. iw 11:57 Nany Sparks RN is Primary Nurse. iw 11:59 Tre Charles MD is Attending Physician. kdr 13:41 Inserted saline lock: 22 gauge in right hand, using aseptic technique. dh3 13:53 No provider procedures requiring assistance completed. ld1 13:53 Patient has correct armband on for positive identification. Placed in gown. Bed in low ld1 position. Call light in reach. Side rails up X2. independent producer on. Pulse ox on. NIBP on. 16:22 IV discontinued, intact, bleeding controlled, No redness/swelling at site. ld1 16:22 Arm band placed on right wrist. ld1 Administered Medications: 13:52 Drug: Ketorolac 15 mg Route: IVP; Site: right antecubital; ld1 13:52 Follow up: Response: No adverse reaction ld1 13:52 Drug: Robaxin (methocarbamol) 1 grams Route: IVPB; Infused Over: 1 hrs; Site: right ld1 antecubital; 13:52 Follow up: Response: No adverse reaction ld1 14:20 Follow up: IV Status: Completed infusion iw 13:52 Drug: SOLU-Medrol (methylPrednisoLONE) 125 mg Route: IVP; Site: right antecubital; ld1 13:52 Follow up: Response: No adverse reaction ld1 13:52 Drug: [place] (HYDROcodone-acetaminophen) 10 mg-325 mg 1 tabs Route: PO; ld1 13:52 Follow up: Response: No adverse reaction ld1 15:16 Drug: Zofran (Ondansetron) 4 mg Route: IVP; Site: right hand; ld1 15:16 Follow up: Response: No adverse reaction ld1 Outcome: 16:15 Discharge ordered by . kdr 16:22 Discharged to home via wheelchair, with family. ld1 16:22 Condition: stable 16:22 Discharge instructions given to patient, family, Instructed on discharge instructions, follow up and referral plans. medication usage, Demonstrated understanding of instructions, follow-up care, medications, Prescriptions given X 4. 16:23 Patient left the ED. ld1 Signatures: Tre Charles MD MD [facility] Nany Sparks RN RN Ramonita Alejo [facility] Casandra Piedra RN RN ld1
[2021-01-10 16:44] VITALS: BP 146/70; TEMP 98.6; O2SAT 100
== END 2021-01-10 16:23 | disposition home or self-care (01) ==
LOC: ER 11:15
DX: M54.50 Low back pain, unspecified (principal); I10 Essential (primary) hypertension; Z88.5 Allergy status to narcotic agent; Z91.040 Latex allergy status; Z91.048 Other nonmedicinal substance allergy status
CPT/HCPCS: 99284; J2930; J2405; J2800

== ENCOUNTER 2021-07-22 21:16 | Emergency (ER) | payer OTHER ==
--- OUTSIDE RECORDS SUMMARY | 2021-07-22 21:22 | XMS REPORT | Continuity of Care Document ---
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 00:00:00 [facility] Influenza Virus 2016-11-25 Completed Universit y of Vaccine 00:00:00 [facility] Influenza Virus 2016-11-25 Completed Universit y of Vaccine 00:00:00 [facility] Influenza Virus 2016-11-25 Completed Universit y of Vaccine 00:00:00 [facility] Influenza Virus 2016-11-25 Completed Universit y of Vaccine 00:00:00 [facility] Influenza Virus 2016-11-25 Completed Universit y of Vaccine 00:00:00 [facility] Influenza Virus 2016-11-25 Completed Universit y of Vaccine 00:00:00 [facility] Influenza Virus 2016-11-25 Completed Universit y of Vaccine 00:00:00 [facility] Influenza Virus 2016-11-25 Completed Universit y of Vaccine 00:00:00 [facility] Influenza Virus 2016-11-25 Completed Universit y of Vaccine 00:00:00 [facility] Influenza Virus 2016-11-25 Completed Universit y of Vaccine 00:00:00 [facility] Vital Signs Vital Name Observation Time Observation Value Comments Source Systolic blood 2020-10-21 13:26:00 153 mm[Hg] Univer sity of pressure [facility] Diastolic blood 2020-10-21 13:26:00 103 mm[Hg] Unive rsity of pressure [facility] Heart rate 2020-10-21 13:26:00 79 /min Universi ty of [facility] Body height 2020-10-21 13:24:00 167.[address] [facility] Body weight 2020-10-21 13:24:00 72.576 kg Universi ty of [facility] BMI 2020-10-21 13:24:00 25.82 kg/m2 Universi ty of [facility] Systolic blood 2020-07-26 19:53:00 137 mm[Hg] Univer sity of pressure [facility] Diastolic blood 2020-07-26 19:53:00 88 mm[Hg] Unive rsity of pressure [facility] Heart rate 2020-07-26 19:53:00 68 /min Universi ty of [facility] Body temperature 2020-07-26 19:53:00 36.94 Liv Univ ersity of [facility] Respiratory rate 2020-07-26 19:53:00 18 /min Univ ersity of [facility] Body height 2020-07-26 19:53:00 165.[address] [facility] Body weight 2020-07-26 19:53:[address] [facility] BMI 2020-07-26 19:53:00 27.96 kg/m2 Universi ty of [facility] Systolic blood 2020-07-26 19:53:00 137 mm[Hg] Univer sity of [facility] Diastolic blood 2020-07-26 19:53:00 88 mm[Hg] Unive rsity of pressure [facility] Heart rate 2020-07-26 19:53:00 68 /min [facility] Body temperature 2020-07-26 19:53:00 36.94 Liv Univ ersity [facility] Respiratory rate 2020-07-26 19:53:00 18 /min Univ ers[facility] Body height 2020-07-26 19:53:00 165.1 cm [facility] Body weight 2020-07-26 19:53:00 76.204 kg [facility] BMI 2020-07-26 19:53:00 27.96 kg/m2 [facility] Systolic blood 2020-05-25 19:48:00 125 mm[Hg] Univer sity of pressure [facility] Diastolic blood 2020-05-25 19:48:00 85 mm[Hg] Unive rsity of pressure [facility] Heart rate 2020-05-25 19:48:00 73 /min [facility] Respiratory rate 2020-05-25 19:48:00 19 /min Univ ersity [facility] Body height 2020-05-25 19:48:00 165.1 cm [facility] Body weight 2020-05-25 19:48:00 77.474 kg [facility] BMI 2020-05-25 19:48:00 28.42 kg/m2 [facility] Oxygen saturation in 2020-05-25 19:48:00 97 /min University of Arterial blood by [employer] Pulse oximetry Branch Systolic blood 2020-05-21 19:31:00 146 mm[Hg] Univer sity of [facility] Diastolic blood 2020-05-21 19:31:00 90 mm[Hg] Unive rsity of [facility] Heart rate 2020-05-21 19:31:00 78 /min [facility] Oxygen saturation in 2020-05-21 19:31:00 99 /min University of Arterial blood by [employer] Pulse oximetry Branch Body height 2020-05-21 19:23:00 167.6 cm [facility] Body weight 2020-05-21 19:23:00 76.975 kg [facility] BMI 2020-05-21 19:23:00 27.41 kg/m2 [facility] Systolic blood 2020-03-16 16:20:00 142 mm[Hg] Univer sity of pressure [facility] Diastolic blood 2020-03-16 16:20:00 84 mm[Hg] Unive rsity of pressure [facility] Heart rate 2020-03-16 16:20:00 77 /min Universi ty of [facility] Body temperature 2020-03-16 16:20:00 36.56 Liv Univ ersity of [facility] Respiratory rate 2020-03-16 16:20:00 14 /min Univ ersity of [facility] Oxygen saturation in 2020-03-16 16:20:00 99 /min University of Arterial blood by [facility] Pulse oximetry Branch Body height 2020-03-12 18:40:00 167.6 cm [facility] Body weight 2020-03-12 18:40:00 72.576 kg [facility] BMI 2020-03-12 18:40:00 25.84 kg/m2 Universi ty of [facility] Systolic blood 2019-09-03 20:23:00 124 mm[Hg] Univer sity of pressure [facility] Diastolic blood 2019-09-03 20:23:00 81 mm[Hg] Unive rsity of pressure [facility] Heart rate 2019-09-03 20:23:00 70 /min [facility] Body height 2019-09-03 20:23:00 167.6 cm [facility] Body weight 2019-09-03 20:23:00 72.576 kg stated [facility] BMI 2019-09-03 20:23:00 25.82 kg/m2 Universi ty of [facility] Systolic blood 2019-04-16 14:10:00 129 mm[Hg] Univer sity of pressure [facility] Diastolic blood 2019-04-16 14:10:00 86 mm[Hg] Unive rsity of pressure [facility] Heart rate 2019-04-16 14:10:00 69 /min Universi ty of [facility] Body height 2019-04-16 14:10:00 162.6 cm Universi ty of [facility] Body weight 2019-04-16 14:10:00 72.122 kg [facility] BMI 2019-04-16 14:10:00 27.29 kg/m2 Universi ty of [facility] Systolic blood 2019-04-09 16:11:00 124 mm[Hg] Univer sity of pressure [facility] Diastolic blood 2019-04-09 16:11:00 87 mm[Hg] Unive rsity of pressure [facility] Heart rate 2019-04-09 16:11:00 70 /min Universi ty of [facility] Respiratory rate 2019-04-09 16:11:00 19 /min Univ ersity of [facility] Body height 2019-04-09 16:11:00 162[address] [facility] Body weight 2019-04-09 16:11:[address] [facility] BMI 2019-04-09 16:11:00 27.05 kg/m2 Universi ty of [facility] Oxygen saturation in 2019-04-09 16:11:00 99 /min University of Arterial blood by [facility] Pulse oximetry Branch Systolic blood 2019-04-07 20:17:00 131 mm[Hg] Univer sity of pressure [facility] Diastolic blood 2019-04-07 20:17:00 83 mm[Hg] Unive rsity of pressure [facility] Body height 2019-04-07 20:17:00 162.[address] [facility] Systolic blood 2018-10-04 14:39:00 136 mm[Hg] [facility] pressure Medicine Diastolic blood 2018-10-04 14:39:00 91 mm[Hg] [facility] pressure Medicine Heart rate 2018-10-04 14:39:00 78 /min [facility] Medicine Body height 2018-10-04 14:39:00 165.1 cm [facility] Body weight 2018-10-04 14:39:00 71.215 kg [facility] BMI 2018-10-04 14:39:00 26.13 kg/m2 [facility] Systolic blood 2018-10-04 14:39:00 136 mm[Hg] [facility] pressure Medicine Diastolic blood 2018-10-04 14:39:00 91 mm[Hg] [facility] Medicine Heart rate 2018-10-04 14:39:00 78 /min [facility] Body height 2018-10-04 14:39:00 165.1 cm [facility] Body weight 2018-10-04 14:39:00 71.215 kg [facility] BMI 2018-10-04 14:39:00 26.13 kg/m2 [facility] Systolic blood 2020-06-18 16:00:00 122 mm[Hg] [facility] pressure Diastolic blood 2020-06-18 16:00:00 79 mm[Hg] [facility] pressure Heart rate 2020-06-18 16:00:00 69 /min [facility] Respiratory rate 2020-06-18 16:00:00 18 /min [facility] Oxygen saturation in 2020-06-18 16:00:00 97 /min [facility] Arterial blood by Pulse oximetry Body temperature 2020-06-18 15:32:00 36.72 Liv [facility] Body height 2020-06-18 14:00:00 167.6 cm [facility] Body weight 2020-06-18 14:00:00 77.111 kg [facility] BMI 2020-06-18 14:00:00 27.44 kg/m2 [facility] Procedures Procedure Date / Time Performing Clinician Source Performed EXTERNAL PROVIDER 2020-08-19 05:01:00 Doctor Unassigned, No [facility] RECORDS Name Medical Branch AUTHORIZATION TO RELEASE 2020-07-26 05:01:00 Doctor Unassigned, No [facility] PHI TO [facility] Name Medical Branch AUTHORIZATION FOR 2020-06-30 05:01:00 Doctor Unassigned, No [facility] RELEASE OF PHI Name Medical Branch CT POST MYELOGRAM LUMBAR 2020-06-18 15:33:36 Konrad Velazquez [facility] IR MYELOGRAM LUMB INCL 2020-06-18 15:06:03 Konrad Velazquez [facility] INJ W S&I ASSIGNMENT OF BENEFITS 2020-05-21 17:30:55 Doctor Unassigned, No [facility] Medical Branch MRI SPINE EXTERNAL STUDY 2020-03-26 20:47:00 [facility] XR SPINE EXTERNAL STUDY 2020-03-26 19:37:[address] [facility] CT SPINE EXTERNAL STUDY 2020-03-26 19:35:00 [facility] FL TIME OR 2020-03-16 14:50:00 Jed Coppola [facility] (NON-REPORTABLE) [facility] [place] DAY SURGERY - ADC 2020-03-16 06:01:00 Doctor Unassigned, No Univ ersity [facility] [place] XR CHEST 2 VW 2020-03-15 19:38:24 Jed Coppola [facility] NOTICE OF PRIVACY 2020-03-15 19:19:39 Doctor Unassigned, No [facility] [place] CONSENT/REFUSAL FOR 2020-03-15 19:19:16 Doctor Unassigned, No [facility]REAT[facility] [place] ASSIGNMENT OF BENEFITS 2020-03-15 19:18:57 Doctor Unassigned, No [facility] DSU PRE-OP 2020-03-11 06:01:00 Doctor Unassigned, No Univer sit of [facility] XRAY Spine Thoracic 4+ 2020-03-08 [id number] Spine lumbar wo 2020-03-08 00:00:00 [facility] [id number] MRI Spine thoracic wo 2020-03-08 00:00:[facility] [id number] REFERRAL- 2019-08-11 05:01:00 Doctor Unassigned, No Univer sity [facility] REQUEST/RESPONSE [facility] Medical Branch AUTHORIZATION FOR 2019-07-26 05:01:00 Doctor Unassigned, No [facility] RELEASE OF PHI [facility] Medical Branch MR FOOT LEFT WO CONTRAST 2019-07-17 13:55:24 [facility] OF BENEFITS 2019-04-07 19:58:22 Doctor Unassigned, No [facility] [place] EXTERNAL PROVIDER - ADC 2019-03-11 06:01:00 Doctor Unassigned, N o [facility] REFERRAL Name Medical Branch Plan of Care Planned Activity Planned Date Details Comments Source Future Scheduled 2028-08-[address] [facility] 00:00:00 malignant neoplasm Medical C enter of colon (procedure) [code = 523464294] Future Scheduled 2028-08-[address] [facility] Test 00:00:00 malignant neoplasm Medical C enter of colon (procedure) [code = 772076342] Future Scheduled 2021-08-01 [facility]00 malignant neoplasm of cervix (procedure) [code = 038919139] Future Scheduled 2021-08-01 [facility] 00:[facility]:00 malignant neoplasm of cervix (procedure) [code = 084853903] Future Scheduled 2021-02-22 COVID-19 VACCINE (1) Met [facility] Test 12:07:17 [code = COVID-19 VACCINE (1)] Future Scheduled 2021-02-22 [facility]07[facility]17 screening (procedure) [code = 720811983] Future Scheduled 2021-02-22 [facility] 12:07:17 malignant neoplasm of cervix (procedure) [code = 225240018] Future Scheduled 2021-02-22 [facility]FLUENZA [facility]ACCINE [facility] 12:07:17 [code = INFLUENZA VACCINE] Future Scheduled 2021-02-22 [facility]19 [facility] ([facility]:07[facility]17 [code = COVID-19 VACCINE (1)] Future Scheduled 2021-02-22 [facility] 12:07:17 screening (procedure) [code = 177632112] Future Scheduled 2021-02-22 [facility] Test 12:07:17 malignant neoplasm of cervix (procedure) [code = 627143875] Future Scheduled 2021-02-22 [facility]ACCINE [facility] 12:07:17 [code = INFLUENZA VACCINE] Future Scheduled 2020-11-19 [facility]MM Influenza [facility] 00:[facility]:00 Seasonal Nov to April (>/= 19 yrs) [code = IMM Influenza Seasonal Nov to April (>/= 19 yrs)] Future Scheduled 2020-11-19 [facility] Influ[facility] 00:00:00 Seasonal Nov to April (>/= 19 yrs) [code = IMM Influenza Seasonal Nov to April (>/= 19 yrs)] Future Scheduled 2020-10-[address] [facility] Test 00:00:00 (#1) [code = [facility] INFLUENZA VACCINE (#1)] Future Scheduled 2020-10-[address] [facility] Test 00:00:00 (#1) [code = [facility] INFLUENZA VACCINE (#1)] Future Scheduled 2020-02-[address] [facility] Test 00:00:00 (12+) [code = [facility] DEPRESSION SCREENING (12+)] Future Scheduled 2020-02-[address] [facility] Test 00:00:00 (12+) [code = [facility] DEPRESSION SCREENING (12+)] Future Scheduled 2019-12-[address] [facility] Test 00:00:00 (procedure) [code = [facility] 58405360] Future Scheduled 2019-12-[address] [facility] Test 00:00:00 (procedure) [code = [facility] 21555492] Future Scheduled 2017-12-27 [facility] 00:00:00 (Yearly) [code = Breast Cancer Scrn (Yearly)] Future Scheduled 2017-12-27 [facility] 00:00:00 (Yearly) [code = Breast Cancer Scrn (Yearly)] Future Scheduled 2004 [facility] 00:[facility]:00 malignant neoplasm of cervix (procedure) [code = 973907639] Future Scheduled 2004 [facility] 00:[facility]:00 malignant neoplasm of cervix (procedure) [code = 627807411] Future Scheduled 1995-12-[address] [facility] Test 00:00:00 malignant neoplasm Medical C enter of cervix (procedure) [code = 563465442] Future Scheduled 1995-12-[address] [facility] [facility] Test 00:00:00 malignant neoplasm Medical C enter of cervix (procedure) [code = 804031368] Future Scheduled 1993 DTAP/TDAP/TD [facility] Test 00[facility] VACCINES (1 - Tdap) [facility] Center [code = DTAP/TDAP/TD VACCINES (1 - Tdap)] Future Scheduled 1993 DTAP/TDAP/TD [facility] Test 00:00:[facility] VACCINES (1 - Tdap) Medical Center [code = DTAP/TDAP/TD VACCINES (1 - Tdap)] Future Scheduled [address] [facility] Test 00:00:00 SCREENING [code = Medical Ce nter HEPATITIS C SCREENING] Future Scheduled [address] [facility] Test 00:00:00 SCREENING [code = Medical Ce nter HEPATITIS C SCREENING] Future Scheduled 1986 COVID-19 VACCINE (1) [facility] Test 00:00:00 [code = COVID-[address] VACCINE (1)] Future Scheduled 1986 COVID-19 VACCINE (1) [facility] Test 00:00:00 [code = COVID-[address] VACCINE (1)] Future Scheduled 1979-12-24 COVID-19 Vaccine (1) [facility] 00:00:00 [code = COVID-19 Vaccine (1)] Future Scheduled 1979-12-24 COVID-19 Vaccine (1) [facility] 00:00:00 [code = COVID-19 Vaccine (1)] Future Scheduled MAMMOGRAM ANNUAL [facility] of Test [code = MAMMOGRAM Medicine ANNUAL] Future Scheduled TETANUS SHOT (ADULT) [facility] of Test [code = TETANUS SHOT Medicin e (ADULT)] Future Scheduled BMI FOLLOW UP PLAN [facility] of Test [code = BMI FOLLOW Medicine UP PLAN] Future Scheduled HIV SCREENING [code [facility] of Test = HIV SCREENING] Medicine Future Scheduled CERVICAL CANCER [facility] ollege of Test SCREENING 3 YEAR Medicine FOLLOW UP [code = CERVICAL CANCER SCREENING 3 YEAR FOLLOW UP] Future Scheduled FLU VACCINE > 6 [facility] C ollege of Test MONTHS [code = FLU Medicine VACCINE > 6 MONTHS] Encounters Start End Encounter Admission Attending Care Care Encounter Source Date/Time Date/Time Type Type Clinicians Facility Department ID 2021-03-16 Outpatient [facility] [id number] Common 13:54:33 [id number] [facility] 2020-12-18 Outpatient Feliciano COPPOLA JR, [facility] LENKA [id number] Univers 18:39:16 JED contreras [facility] 2016-12-[address] [facility] [id number] H arris 19:13:58 [facility] 2016-11-[address] [facility] [id number] H arris 15:22:01 [facility] 2016-11-[address] [facility] [id number] H arris 01:48:38 Health 2016-11-[address] [facility] [id number] H arris 01:48:30 [facility] 2016-11-20 Inpatient [facility] [id number] H arris 05:55:00 [facility] 2021-07-26 2021-07-26 Outpatient Feliciano WILL [facility] [id number] Univers 09:30:00 09:30:00 LUIS [id number] [facility] 2021-07-26 2021-07-26 Outpatient Feliciano WILL [facility] [id number] Univers 09:30:00 09:30:00 LUIS [facility] 2020-12-07 2020-12-07 Travel [id number] Methodi 00:00:00 00:00:[id number] 3.430.2.7 0.2.7.3.698 Ho spita .[id number] 084.8 l .8 2020-11-04 2020-11-04 Outpatient Feliciano STUART [facility] [id number] Univers 08:30:00 08:30:00 OLMAN [id number] [facility] 2020-11-04 2020-11-04 Outpatient Feliciano STUART [facility] [id number] Univers 08:30:00 08:30:00 OLMAN [facility] 2020-11-02 2020-11-02 Outpatient Feliciano DOSHI [facility] [id number] Univers 08:30:00 08:30:00 BAKARI [id number] [facility] 2020-11-02 2020-11-02 Outpatient Feliciano DOSHI [facility] [id number] Univers 08:30:00 08:30:00 BAKARI [facility] 2020-10-28 2020-10-28 Outpatient Feliciano DOSHI [facility] [id number] Univers 16:15:00 16:15:00 BAKARI [id number] [facility] 2020-10-28 2020-10-28 Outpatient Feliciano TICO [facility] [id number] Univers 16:15:00 16:15:00 BAKARI [facility] 2020-10-21 2020-10-21 Office Bakari Doshi [facility] [id number] Univers 08:12:07 08:27:07 Visit Omlan Stuart [facility] [id number] ity of [place] 4.2.7.2.686 [place] as Burke?Blea [id number] Ct [address] Medical Office [facility] 2020-10-21 2020-10-21 [id number] Univers 08:15:00 08:15:00 OLMAN [id number] [facility] 2020-10-21 2020-10-21 Outpatient R NARCISO [facility] [id number] Univers 08:15:00 08:15:00 [facility] 2020-09-02 2020-09-02 Office Marcus [id number] Methodi 14:52:10 15:07:10 Visit Konrad MoffettShannon [id number] s t 3.430.2.7 Hospit a .[id number] l .8 2020-08-19 2020-08-19 Orders Doctor ADAMS [id number] 00:00:00 00:00:00 Only Unassigned, KAIT 350.1.13.10 [facility] 4.2.7.2.686 [id number] 2020-08-19 2020-08-19 Orders Doctor ADAMS [id number] Univers 00:00:00 00:00:00 Only Unassigned, KAIT 350.1.13.10 ity of [facility] 4.2.7.2.686 [place] as [id number] [address] 2020-08-12 2020-08-12 Case Nicolette [facility] [id number] 00:00:00 00:00:00 Management Luis Flaherty [id number] [place] 4.2.7.2.686 Professio [id number] [address] 2020-08-12 2020-08-12 Case Nicolette, [facility] [id number] Univers 00:00:00 00:00:00 Management Luis Flaherty [id number] [facility] 4[place]2.7.2.[place] [id number] [address] 2020-07-27 2020-07-27 Outpatient R KAYODE [facility] [id number] Univers 11:30:00 11:30:00 SENDIL [id number] [facility] 2020-07-27 2020-07-27 Outpatient R KAYODE [facility] [id number] Univers 11:30:00 11:30:00 SENDIL [facility] 2020-07-26 2020-07-26 [facility] [id number] 14:43:48 15:35:48 Visit Luis Flaherty [id number] [place] 4.2.7.2.686 Professio [id number] [address] 2020-07-26 2020-07-26 [facility] [id number] Univers 14:43:48 15:35:48 Visit Luis Flaherty 350.1.13.10 i ty of [place] 4[place]2.7.2.686 [place] [id number] [address] 2020-07-26 2020-07-26 Outpatient R NICOLETTE [facility] [id number] Univers 10:45:00 10:45:00 LUIS [id number] [facility] [facility] 2020-07-26 2020-07-26 Outpatient R NICOLETTE [facility] [id number] Univers 10:45:00 10:45:00 LUIS [facility] 2020-07-26 2020-07-26 Orders Doctor BRYAN 1.2.840.114 [id number] 00:00:00 00:00:00 Only Unassigned, KAIT 350.1.13.10 [place] [facility] 4.2.7.2.686 [phone] [facility] 2020-07-26 2020-07-26 Telephone [facility] 1.2.840.114 [id number] 00:00:00 00:00:00 Luis Flaherty 350.1.13.10 [place] 4.2.7.2.686 Professio [phone] [address] 2020-07-26 2020-07-26 Orders Doctor BRYAN 1.2.840.114 [id number] Univers 00:00:00 00:00:00 Only Unassigned, KAIT 350.1.13.10 ity of [place] [facility] 4.2.7.2.686 [place] as [phone] [address] 2020-07-26 2020-07-26 Telephone [facility] 1.2.840.114 [id number] Univers 00:00:00 00:00:00 Luis Flaherty 350.1.13.10 i ty of [place] [phone] Ct dical [address] 2020-07-09 2020-07-09 Outpatient R NOREEN [facility] [id number] 0Q-20 Univers 13:30:00 13:30:00 DELMAR [id number] ity [facility] 2020-07-09 2020-07-09 Outpatient R [facility] [id number] Univers 13:15:00 13:15:00 ity [facility] 2020-07-06 2020-07-06 Outpatient AN, [facility] 750 2 Memoria 05:25:00 17:15:00 MARGARITA Scruggs l [facility] 2020-06-30 2020-06-30 Orders Doctor ADAMS 1.2.840.114 [id number] 00:00:00 00:00:00 Only UnassignedKAIT 350.1.13.10 [place] [facility] 4.2.7.2.686 [id number] 009 2020-06-30 2020-06-30 Orders Doctor BRYAN 1.2.840.114 [id number] Univers 00:00:00 00:00:00 Only Unassigned, KAIT 350.1.13.10 ity of [place] [facility] 4.2.7.2.686 [place] [phone] [facility] [address] 2020-06-29 2020-06-29 Telephone Popeye Painter 1.2.840.114 [id number] Univers 00:00:00 00:00:00 , Libra Cuevas 350.1.13.10 ity of [place].2.[place] [phone] [facility] [address] 2020-06-28 2020-06-28 Travel 1.2.840.1 1.2.139.575 7135 [id number] Methodi 00:00:00 00:00:[address] 3.430.2.7 0.2.7.3.698 Ho spita .3.715876 084.8 l .8 2020-06-23 2020-06-23 [facility] [id number] -20 Univers 10:00:00 10:00:00 SENDIL [id number] [facility] 2020-06-23 2020-06-23 Outpatient Feliciano HEADLEY [facility] [id number] Univers 10:00:00 10:00:00 SENDIL [facility] 2020-06-23 2020-06-23 [facility] [id number] Univers 09:30:00 09:30:00 SENDIL [facility] 2020-06-22 2020-06-22 Travel 1.2.840.1 1.2.137.381 [id number] [id number] Methodi 00:00:00 00:00:[address] 3.430.2.7 0.2.7.3.698 Ho spita .3.636468 084.8 l .8 2020-06-18 2020-06-18 [facility], 1.2.840.1 [id number] 71752 Methodi 10:04:33 23:59:00 Encounter Konrad Moffett. 48369.1.[address] 3.430.2.7 Hospit a .3.746486 l .8 2020-06-18 2020-06-18 Hospital Velazquez, 1.2.840.1 [id number] 20905 Methodi 08:44:19 10:03:00 Encounter Konrad Moffett. 98602.1.[address] 3.430.2.7 Hospit a .3.633701 l .8 2020-06-17 2020-06-17 Travel 1.2.840.1 1.2.057.346 8718 094982 Methodi 00:00:00 00:00:[address] 3.430.2.7 0.2.7.3.698 Ho spita .3.477989 084.8 l .8 2020-06-17 2020-06-17 Telephone [facility] 1.2.840.1 [id number] Methodi 00:00:00 00:00:00 sonnylisbet, 86080.1.[address] doia 3.430.2.7 Hospi ta .3.749996 l .8 2020-06-10 2020-06-15 [facility], 1.2.840.1 [id number] 1905 Methodi 14:36:45 00:44:39 Visit Konrad Moffett. 97899.1.1 046 s t 3.430.2.7 Hospit a .3.247084 l .8 2020-06-11 2020-06-11 Orders Blancas, 1.2.840.1 [id number] 1395 Methodi 00:00:00 00:00:00 Only Rayo 54124.1.[address] 3.430.2.7 Hospit a .3.736031 l .8 2020-06-11 2020-06-11 Orders [place], 1.2.840.1 [id number] 0131 Methodi 00:00:00 00:00:00 Only Rayo 31967.1.[address] 3.430.2.7 Hospit a .3.550011 l .8 2020-06-10 2020-06-10 [facility], 1.2.840.1 [id number] 08890 80808 Methodi 21:29:33 23:59:00 Encounter Konrad S. 25244.1.[address] 3.430.2.7 Hospit a .3.192160 l .8 2020-06-10 2020-06-10 [facility], 1.2.840.1 [id number] 81241 32835 Methodi 21:28:44 21:28:44 Encounter Konrad S. 23779.1.[address] 3.430.2.7 Hospit a .3.819613 l .8 2020-06-10 2020-06-10 [facility], 1.2.840.1 [id number] 14215 20429 Methodi 21:27:49 21:27:49 Encounter Konrad S. 00417.1.[address] 3.430.2.7 Hospit a .3.601459 l .8 2020-06-10 2020-06-10 Travel 1.2.840.1 1.2.647.249 2803 076046 Methodi 00:00:00 00:00:[address] 3.430.2.7 0.2.7.3.698 Ho spita .3.658857 084.8 l .8 2020-06-08 2020-06-08 Travel 1.2.840.1 1.2.229.695 7016 265263 Methodi 00:00:00 00:00:[address] 3.430.2.7 0.2.7.3.698 Ho spita .3.785165 084.8 l .8 2020-06-01 2020-06-01 El Headley GAANKIT 1.2.238.410 8259 3616 Univers 00:00:00 00:00:00 Sendsinan BetseyShannonMehreenShannon Flaherty 350.1.13.10 it[place] of [place] [phone] Ct dical nal 9 [facility] 2020-05-25 2020-05-25 Office Kayode [facility] 1.2.840.114 [id number] 65 Univers 14:27:03 15:53:37 Visit Geraldo BetseyShannonMehreenShannon Flaherty 350.1.13.10 ity of [place] [phone] Ct dicpa nal [address] [place] [address] 2020-05-25 2020-05-25 Outpatient R KAYODE [facility] [id number] -20 Univers 15:00:00 15:00:00 SENDIL [id number] ity [facility] 2020-05-25 2020-05-25 Outpatient R KAYODE [facility] [id number] Univers 15:00:00 15:00:00 SENDIL ity [facility] 2020-05-21 2020-05-21 Outpatient R NOREEN [facility] [id number] 0Q-20 Univers 14:15:00 14:15:00 DELMAR [id number] ity [facility] 2020-05-21 2020-05-21 Outpatient R NOREEN [facility] [id number] Univers 14:15:00 14:15:00 DELMAR ity [facility] 2020-05-21 2020-05-21 Ancillary Qiana Romeo [facility] 1.2.840.114 [id number] Univers 12:32:23 13:17:23 Visit Amie Vanegas 350.1.13.1 0 ity of [facility] [place].2.[place] [phone] [facility] [address] 2020-05-21 2020-05-21 [facility] 1.2.255.470 9027 6094 Univers 12:32:45 12:47:45 Visit Delmar SERRATO 350.1.13.10 i ty of [place].2.[place] [phone] [facility] [address] 2020-05-21 2020-05-21 Orders Doctor BRYAN 1.2.840.114 [id number] Univers 00:00:00 00:00:00 Only Unassigned, KAIT 350.1.13.10 ity of [place] [facility] 4.2.7.2.686 [place] as [phone] [facility] [address] 2020-05-17 2020-05-17 Travel 1.2.840.1 1.2.941.692 4580 461215 Methodi 00:00:00 00:00:[address] 3.430.2.7 0.2.7.3.698 Ho spita .3.998179 084.8 l .8 2020-03-16 2020-03-16 [facility] 1.2.840.114 [id number] 783 Univers 06:27:00 10:38:00 Encounter Jed Flaherty 350.1.13.10 it[place] of [place] Surgical [phone] [facility] [address] 2020-03-16 2020-03-16 Orders Doctor BRYAN 1.2.840.114 [id number] Univers 00:00:00 00:00:00 Only Unassigned, KAIT 350.1.13.10 ity of [place] [facility] 4.2.7.2.686 [place] as [phone] [facility] [address] 2020-03-15 2020-03-15 [facility] 1.2.840.114 [id number] Univers 12:45:00 23:59:00 Encounter Jed Flaherty 350.1.13.10 it[place] of [place].2.[place] [phone] [facility] 8[address] 2020-03-15 2020-03-15 Applications Trainer Sony, Adc Lab Main [facility] 1.2.8 40.114 [id number] Univers 13:22:26 13:37:26 Visit Jed Coppola 350.1.13.10 it[place] of [place] [phone] Ct dical nal [address] Building 2020-03-15 2020-03-15 Laboratory Only, Adc Test [facility] 1.2.840. 114 [id number] Univers 13:19:31 13:34:31 Only Jed Coppolaton 350.1.13.10 [facility] 4.2.7.2.686 [facility] [phone] [facility] [place] [address] 2020-03-15 2020-03-15 Outpatient R [facility] [id number] -20 Univers 12:15:00 12:15:00 [id number] [facility] 2020-03-15 2020-03-15 Out[facility] [id number] Univers 12:15:00 12:15:00 JED [facility] 2020-03-08 2020-03-08 ANTON Alex PM&R [facility] [id number] [place] 08:30:00 08:30:00 t; Albina VILLAFUERTE [facility] CHRISTO Leyva M.D. 2020-02-04 2020-02-04 Outpatient [facility] [id number] -20 Univers 09:30:00 09:30:00 [id number] [facility] 2020-02-04 2020-02-04 Outpatient R HILL, [facility] [id number] Univers 09:30:00 09:30:00 MANAV [facility] 2020-01-29 2020-01-29 Outpatient MARCUS [facility] [id number] [address] [place] 00:00:00 00:00:[address] KONRAD [address] 2020-01-29 2020-01-29 Outpatient MARCUS [facility] [id number] [address] [place] 00:00:00 00:00:00 KONRAD [address] 2020-01-25 2020-01-28 Inpatient HCAPM JESSICA [id number] [facility] 11:31:00 02:20:18 24 [facility] 2019-12-15 2019-12-15 Outpatient R [facility] [id number] -20 Univers 11:00:00 11:00:00 [id number] [facility] 2019-12-15 2019-12-15 Outpatient R KARIE, [facility] [id number] Univers 11:00:00 11:00:00 HELEN [facility] 2019-12-03 2019-12-03 Outpatient R [facility] [id number] -20 Univers 10:30:00 10:30:00 [id number] [facility] 2019-12-03 2019-12-03 Outpatient R SERGIO, [facility] [id number] Univers 10:30:00 10:30:00 MANAV [facility] 2019-11-05 2019-11-05 Outpatient [facility] [id number] [place] 05:21:00 12:39:00 SHARAN [facility] 2019-09-26 2019-10-21 Office [place] Luisito [facility] 1.2.840. 114 [id number] Univers 15:30:31 21:51:55 Visit Danielle Brasher [facility] 350.1.13.1 0 ity of [place] [id number] [address] 2019-10-07 2019-10-07 Outpatient LIKOVER, [facility] [address] 09:00:00 23:59:00 SHARAN [facility] 2019-09-26 2019-09-26 Outpatient R [facility] [id number] -[id number] Univers 16:00:00 16:00:00 [facility] 2019-09-26 2019-09-26 [facility] [id number] Univers 16:00:00 16:00:00 DANIELLE itfrancisco javier [facility] 2019-09-09 2019-09-09 Outpatient MARCUS [facility] [id number] [address] [place] 00:00:00 00:00:00 KONRAD [address] 2019-09-09 2019-09-09 Outpatient MARCUS [facility] [id number] [address] [place] [address] 00:00:00 00:00:00 KONRAD [address] 2019-09-09 2019-09-09 Outpatient MARCUS [facility] [id number] [address] [place] 00:00:00 00:00:00 KONRAD [address] 2019-09-03 2019-09-03 [facility] 1.2.221.330 [id number] Univers 15:15:59 15:55:48 Visit Olman Hurtado [facility] 350.1.13.10 it of [facility] 4.2.7.2.686 [facility] [phone] Ct dical es 198 [facility] 2019-09-03 2019-09-03 [facility] [id number] 0Q-20 Univers 15:30:00 15:30:00 OLMAN [id number] ity [facility] 2019-09-03 2019-09-03 [facility] [id number] Univers 15:30:00 15:30:00 [facility] 2019-09-01 2019-09-01 [facility] [id number] 0Q-20 Univers 13:45:00 13:45:00 OLMAN [id number] ity [facility] 2019-09-01 2019-09-01 [facility] [id number] Univers 13:45:00 13:45:00 OLMAN [facility] 2019-09-01 2019-09-01 Outpatient MARCUS, [facility] [id number] [address] [place] 00:00:00 00:00:00 KONRAD 795 Method i 2019-09-01 2019-09-01 Outpatient MARCUS, [facility] [id number] [address] [place] 00:00:00 00:00:00 KONRAD 698 Method i 2019-08-14 2019-08-14 [facility] [id number] Univers 13:33:10 23:59:00 [facility] 2019-08-14 2019-08-14 [facility] 1.2.840.114 [id number] Univers 13:33:00 23:59:00 Encounter Olman Flaherty 350.1.13.10 ity [facility] 4.2.7.2.686 [facility] [phone] [facility] [address] [place] [address] 2019-08-14 2019-08-14 [facility] [id number] 0Q-20 Univers 00:00:00 00:00:00 OLMAN [id number] ity [facility] 2019-08-11 2019-08-11 Orders Doctor ADAMS 1.2.840.114 [id number] Univers 00:00:00 00:00:00 Only Unassigned, KAIT 350.1.13.10 ity of [place] [facility] 4.2.7.2.686 [place] as [phone] [facility] [address] 2019-08-01 2019-08-01 Telephone [facility] 1.2.840.114 [id number] Univers 00:00:00 00:00:00 Olman [facility] 350.1.13.10 it y of Surgical 4.2.7.2.686 [place] as Specialti [phone] Ct dical es 198 [facility] 2019-07-29 2019-07-29 Outpatient Feliciano [facility] [id number] -20 Univers 16:15:00 16:15:00 BAKARI [id number] ity [facility] 2019-07-29 2019-07-29 Outpatient Feliciano [facility] [id number] Univers 16:15:00 16:15:[address] of [facility] 2019-07-26 2019-07-26 Orders Doctor ADAMS 1.2.840.114 [id number] Univers 00:00:00 00:00:00 Only Unassigned, KAIT 350.1.13.10 ity of [place] [facility] 4.2.7.2.686 [place] as [phone] [address] 2019-07-17 2019-07-17 Outpatient Feliciano COPPOLA JR [facility] [id number] Univers 07:41:46 23:59:[address] [facility] 2019-07-17 2019-07-17 [facility] 1.2.840.114 [id number] Univers 07:41:00 23:59:00 Encounter Jed Flaherty 350.1.13.10 ity of [place] 4.2.7.2.686 [facility] [phone] [facility] [address] 2019-07-17 2019-07-17 Outpatient Feliciano COPPOLA JR [facility] [id number] 0Q-20 Univers 08:00:00 08:00:00 JED [id number] ity [facility] 2019-06-26 2019-06-26 Telephone [facility] 1.2.840.114 [id number] Univers 00:00:00 00:00:00 Olman Hurtado [facility] 350.1.13.10 it y of Surgical 4.2.7.2.686 [place] as Specialti [id number] Ct dical es 198 [facility] 2019-05-22 2019-05-22 Outpatient [facility] [id number] 0Q-20 Univers 12:30:00 12:30:00 OLMAN ity [facility] 2019-05-15 2019-05-15 Telephone [facility] 1.2.840.114 [id number] Univers 00:00:00 00:00:00 Olman Hurtado [facility] 350.1.13.10 it y of Surgical 4.2.7.2.686 [place] as Specialti [phone] Ct dical es 198 [facility] 2019-05-05 2019-05-05 Outpatient [facility] [id number] 0Q-20 Univers 13:30:00 13:30:00 OLMAN [id number] ity [facility] 2019-05-05 2019-05-05 Telephone [facility] 1.2.840.114 [id number] Univers 00:00:00 00:00:00 Olman Hurtado [facility] 350.1.13.10 it y of Surgical 4.2.7.2.686 [place] as Specialti [phone] [facility] es 198 [facility] 2019-04-23 2019-04-23 Outpatient [facility] [id number] 0Q-20 Univers 09:00:00 09:00:00 OLMAN ity [facility] 2019-04-16 2019-04-16 Laboratory Pc, Adc Echo Room 1 - [facility] 1 .2.840.114 [id number] Univers 07:58:59 08:40:23 Only Greg Samuel 350.1.13.10 ity [facility] [place] [phone] Ct dical nal 059 [facility] 2019-04-16 2019-04-16 Outpatient R JIMMIE [facility] [id number] Univers 08:00:00 08:00:[address] o f [facility] 2019-04-09 2019-04-09 Office [facility] 1.2.840.114 [id number] Univers 09:48:56 10:42:21 Visit Greg Pelham 350.1.13.10 ity of [place] Profess[place] [phone] Ct dical nal 059 [facility] 2019-04-07 2019-04-09 Office [facility] 1.2.773.778 [id number] Univers 14:00:40 10:20:20 Visit Olman Miller 350.1.13.10 it y of Surgical 4.2.7.2.686 [place] Specialti [id number] Me dical es 198 [facility] 2019-04-07 2019-04-07 Outpatient [facility] [id number] Univers 14:44:26 23:59:[address] [facility] 2019-04-07 2019-04-07 Hospital [facility] 1.2.840.114 [id number] Univers 14:44:00 23:59:00 Encounter Olman Miller 350.1.13.10 ity of Surgical 4.2.7.2.686 [place] Specialti [phone] Me dical es 809 [facility] 2019-04-07 2019-04-07 Orders Doctor ADAMS 1.2.840.114 [id number] Univers 00:00:00 00:00:00 Only Unassigned, KAIT 350.1.13.10 ity of [place] [facility] 4.2.7.2.686 [place] as [phone] [facility] [address] 2019-04-07 2019-04-07 Telephone [facility] 1.2.840.114 [id number] Univers 00:00:00 00:00:00 Olman Hurtado Health 350.1.13.10 it y of Surgical 4.2.7.2.686 [place] as Specialti [id number] Me dical es 198 [facility] 2019-03-11 2019-03-11 Orders Doctor ADAMS 1.2.840.114 [id number] Univers 00:00:00 00:00:00 Only Unassigned, KAIT 350.1.13.10 ity of [place] [facility] 4.2.7.2.686 [place] as [phone] [facility] [address] 2019-01-01 2019-01-01 Appointmen ANTON KEN UTP [id number] [place] 14:00:00 14:00:00 t; BREANA KEN M.D. Physici ZORAN, ans M.D. 2018-10-04 2018-10-04 Office CELE [place] 1.2.840.114 [id number] 09:32:10 10:24:11 Visit Tianna AMBULATOR 350.1.13.21 Shawna Y 0.2.7.2.686 [id number] 800 2018-10-04 2018-10-04 Office CELE [place] 1.2.840.[id number] [place] [address] 09:32:10 10:24:11 Visit Tianna AMBULATOR 350.1.13.21 [place] Shawna Y 0.2.7.2.686 of [id number] [facility] 800 e 2018-07-17 2018-07-17 Appointmen CIELO FOWLER UTP UTP [id number] [place] 11:00:00 11:00:00 t; Albina [facility]. [facility] 2018-04-03 2018-04-[address] [facility] [id number] [place] 00:00:00 00:00:00 Health 2018-03-12 2018-03-12 Out[facility] [id number] Common 13:30:00 13:30:00 t Bone Bone and Spiri t and Joint [facility] - [facility] 2018-01-09 2018-01-[address] [facility] [id number] 84 [place] 00:00:00 00:00:00 Health 2017-12-26 2017-12-[address] [facility] [id number] [place] 00:00:00 00:00:00 Health 2017-12-25 2017-12-[address] [facility] [id number] 62 [place] 00:00:00 00:00:00 Health 2017-11-21 2017-11-[address] [facility] [id number] 87 [place] 12:12:10 12:12:10 Health 2017-11-19 2017-11-19 Outpatient [facility] [id number] Common 09:00:00 09:00:00 t Bone Bone and Spiri t and Joint Joint - [facility] 2017-11-16 2017-11-[address] [facility] [id number] [place] 08:30:23 08:30:23 Health 2017-11-12 2017-11-12 Outpatient [facility] [id number] Common 14:22:00 14:22:00 t Bone Bone and Spiri t and Joint Joint - [facility] 2017-11-12 2017-11-[address] [facility] [id number] [place] 00:00:00 00:00:00 [facility] 2017-11-08 2017-11-[address] [facility] [id number] 08 [place] 00:00:00 00:00:00 [facility] 2017-11-05 2017-11-05 Outpatient [facility] [id number] Common 10:03:00 10:03:00 t Bone Bone and Spiri t and Joint Joint - [facility] 2017-10-29 2017-10-29 Outpatient [facility] [id number] Common 08:00:00 08:00:00 t Bone Bone and Spiri t and Joint Joint - [facility] 2017-10-11 2017-10-[address] [facility] [id number] 49 [place] 09:34:54 09:34:54 [facility] 2017-10-10 2017-10-[address] [facility] [id number] 93 [place] 00:00:00 00:00:00 [facility] 2017-10-03 2017-10-[address] [facility] [id number] [place] 00:00:00 00:00:00 [facility] 2017-09-28 2017-09-28 Outpatient [facility] [id number] 96 [place] 06:43:36 06:43:36 Health 2017-09-28 2017-09-[address] [facility] [id number] 23 [place] 00:00:00 00:00:00 [facility] 2017-09-28 2017-09-[address] [facility] [id number] 22 [place] 00:00:00 00:00:00 [facility] 2017-09-26 2017-09-[address] [facility] [id number] [place] 13:42:42 13:42:42 [facility] 2017-09-26 2017-09-[address] [facility] [id number] [place] 00:00:00 00:00:00 [facility] 2017-09-21 2017-09-[address] [facility] [id number] [place] 00:00:00 00:00:00 [facility] 2017-09-19 2017-09-[address] [facility] [id number] [place] 14:50:01 14:50:01 [facility] 2017-09-19 2017-09-[address] [facility] [id number] [place] 13:16:35 13:16:35 [facility] 2017-09-12 2017-09-[address] [facility] [id number] [place] 00:00:00 00:00:00 [facility] 2017-08-24 2017-08-[address] [facility] [id number] [place] 09:22:38 09:22:38 [facility] 2017-07-27 2017-07-[address] [facility] [id number] [place] 10:35:47 10:35:47 [facility] 2017-07-05 2017-07-[address] [facility] [id number] [place] 12:15:23 12:15:23 [facility] 2017-07-03 2017-07-[address] [facility] [id number] [place] 00:00:00 00:00:00 [facility] 2017-05-23 2017-05-[address] [facility] [id number] [place] 13:13:44 13:13:44 [facility] 2017-05-02 2017-05-[address] [facility] [id number] [place] 00:00:00 00:00:00 [facility] 2017-04-25 2017-04-[address] [facility] [id number] [place] 09:01:53 09:01:53 [facility] 2017-04-17 2017-04-17 Outpatient [facility] [id number] [place] 06:05:00 06:05:00 [facility] 2017-04-17 2017-04-[address] [facility] [id number] [place] 00:00:00 00:00:00 [facility] 2017-04-16 2017-04-[address] [facility] [id number] [place] 00:00:00 00:00:00 [facility] 2017-04-13 2017-04-[address] [facility] [id number] [place] 09:12:04 09:12:04 [facility] 2017-04-03 2017-04-[address] [facility] [id number] [place] 00:00:00 00:00:00 [facility] 2017-03-27 2017-03-27 Outpatient [facility] [id number] [place] 06:15:00 06:15:00 [facility] 2017-03-27 2017-03-[address] [facility] [id number] [place] 00:00:00 00:00:00 [facility] 2017-03-19 2017-03-[address] [facility] [id number] [place] 13:22:16 13:22:16 [facility] 2017-03-19 2017-03-[address] [facility] [id number] [place] 00:00:00 00:00:00 [facility] 2017-03-12 2017-03-[address] [facility] [id number] [place] 13:45:55 13:45:55 [facility] [facility] 2017-03-09 2017-03-[address] [facility] [id number] [place] 00:00:00 00:00:00 [facility] 2017-03-08 2017-03-[address] [facility] [id number] [place] 16:03:22 16:03:22 [facility] 2017-03-08 2017-03-[address] [facility] [id number] [place] 14:45:05 14:45:05 [facility] 2017-02-23 2017-02-[address] [facility] [id number] [place] 10:41:02 10:41:02 [facility] 2017-02-23 2017-02-[address] [facility] [id number] [place] 08:11:53 08:11:53 [facility] 2017-02-23 2017-02-[address] [facility] [id number] [place] 07:53:43 07:53:43 [facility] 2017-02-23 2017-02-23 Outpatient [facility] [id number] [place] 00:00:00 00:00:00 [facility] 2017-02-08 2017-02-[address] [facility] [id number] [place] 12:32:00 12:32:00 [facility] 2017-01-24 2017-01-[address] [facility] [id number] [place] 00:00:00 00:00:00 [facility] 2017-01-23 2017-01-[address] [facility] [id number] [place] 12:16:30 12:16:30 [facility] 2017-01-22 2017-01-[address] [facility] [id number] [place] 11:30:20 11:30:20 [facility] 2017-01-15 2017-01-[address] [facility] [id number] [place] 00:00:00 00:00:00 [facility] 2017-01-09 2017-01-[address] [facility] [id number] [place] 09:09:26 09:09:26 [facility] 2017-01-04 2017-01-[address] [facility] [id number] [place] 14:36:02 14:36:02 [facility] 2017-01-02 2017-01-[address] [facility] [id number] [place] 08:36:10 08:36:10 [facility] 2016-12-27 2016-12-[address] [facility] [id number] [place] 11:33:15 11:33:15 [facility] 2016-12-22 2016-12-[address] [facility] [id number] [place] 09:02:45 09:02:45 [facility] 2016-12-11 2016-12-[address] [facility] [id number] [place] 09:01:19 09:01:19 [facility] 2016-12-11 2016-12-11 Inpatient [facility] [id number] [place] 14:16:44 00:00:00 [facility] 2016-12-07 2016-12-[address] [facility] [id number] [place] 00:00:00 00:00:00 [facility] 2016-12-06 2016-12-[address] [facility] [id number] [place] 14:40:31 14:40:31 [facility] 2016-12-04 2016-12-[address] [facility] [id number] [place] 10:31:01 10:31:01 [facility] 2016-11-27 2016-11-[address] [facility] [id number] [place] 00:00:00 00:00:00 [facility] 2016-11-20 2016-11-[address] [facility] [id number] [place] 00:00:00 00:00:00 [facility] 2016-11-20 2016-11-[address] [facility] [id number] [place] 00:00:00 00:00:00 [facility] 2016-11-17 2016-11-[address] [facility] [id number] [place] 00:00:00 00:00:00 [facility] 2016-10-12 2016-10-[address] [facility] [id number] [place] 00:00:00 00:00:00 [facility] 2016-10-10 2016-10-[address] [facility] [id number] [place] 00:00:00 00:00:00 [facility] 2016-10-10 2016-10-[address] [facility] [id number] [place] 00:00:00 00:00:00 [facility] 2016-10-10 2016-10-[address] [facility] [id number] [place] 00:00:00 00:00:00 Health 2016-09-15 2016-09-[address] [facility] [id number] [place] 00:00:00 00:00:00 Health 2016-08-30 2016-08-[address] [facility] [id number] [place] 09:44:27 09:44:27 Health Results Test Test Test Results Result Source Description Time Comments Comments MRI Spine 2020-03- EXAM: Spine Thoracic wo [facility] thoracic wo 05 contrast MRIDATE: 03/26/2020 contrast [id number] 14:45:00 14:47 CSTINDICATION: -Mid back painCOMPARISON: X-ray of the thoracic [...] Spine 2020-03- EXAM: XR THORACIC SPINE 2 [facility] Thoracic 4+ 05 VIEWSDATE: 03/26/2020 13:31 views [id number] 13:45:00 CSTINDICATION: - M54.9 Dorsalgia, unspecifiedCOMPARISON: None.TECHNIQUE: AP and lateral radiographs [...] Spine lumbar 2020-03- EXAM: CT LUMBAR SPINE [facility] wo contrast 05 WITHOUT CONTRASTDATE: [id number] 13:31:00 03/26/2020 13:35 CSTINDICATION: M54.5 Low back painCOMPARISON: None.TECHNIQUE: Volumetric [...] thesubarticular zone.--This report was dictated by a Assistant Director Of Security/Fellow/Physician Forest Ecologist. Ihave personallyreviewed the images as well as the interpretation and agree with the findings.Read by: iLnus Argueta MD Resident/Fellow/PhysicianA ssistant: Linus Argueta MDDictated Date/time: 03/26/20 14:06Electronically Signed by: Vinh Ohara MD 03/29/2112:46FINAL REPORT MRI Spine thoracic wo contrast [id number] 2020-03-26 13:30:00 Test Item Value Reference Range Interpretation Comme nts Spine thoracic wo contrast MRI (test code = Cancel Reason: Duplicat e Order Spine thoracic wo contrast MRI) [facility] (NON-REPORTABLE)2020-03-16 16:12:46These images do not require a Radiology diagnostic report.[facility] 2 [id number] 21:13:01 No acute cardiopulmonary process is seen.PROCEDURE: XR CHEST 2 03/15/2020 1:28 PM CLINICAL INDICATION: Acquired hallux valgus of right foot COMPARISON: None TECHNIQUE: PA and lateral views of the chest FINDINGS: The lungs are clear. There is no pleural effusion. ?No pneumothorax. The cardiac sizeis within normal limits. Surgical clips overlying anteriorchest wall. No aggressive osseous lesion. Cervicothoracic anterior spinal fusionpartially visualized. [facility], Radiant Results Inft User - 03/15/2020 3:14 [...] spinal fusionpartially visualized.IMPRESSIONNo acute cardiopulmonary process is seen. [facility] [id number] 14:02:55 HISTORY: ?Pain left foot pain. TECHNIQUE: MR imaging [...] foot.2. Otherwise normal MRI study of left foot. [facility], Radiant Results Inft User - 07/17/2019 9:04 AM CDTHISTORY: Pain left foot pa in.TECHNIQUE: MR imaging of the left foot was [...] foot.2. Otherwise normal MRI study of left foot.[facility] [id number] 15:56:00Surgical Pathology Report Case: [id number] Authorizing Provider: Mai Nuñez MD Collected: 08/14/2018 1452 Ordering Location: [facility] Endoscopy Received: 08/15/2018 0833 Services Pathologist: Elsy [...] LYMPHOCYTES(SEE COMMENT) Signing Pathologist Direct Phone Line: [phone] signed by Elsy Collier MD on 08/19/2018 [...] including lymphocytic colitis. Clinical correlation is recommended. [id number] X 4, [id number] abdominal pain, LLQ abdominal pain A. Duodenum [...] areevaluated Immunohistochemistry technical testing was performed at [facility], Pathology Laboratory where it was developed [...] complexity clinical laboratory testing.RAD, ABDOMEN/KUB, 1 VIEW [id number] 16:12:00Reason for Exam:->epigastric abdominal painReason for Exam:->constipation, unspecified constipation typeFINAL REPORT Exam: Abdominal radiograph History: Constipation Comparison: None. Findings: Nonobstructive bowel gas pattern. Mild amount retained stool. Multiple surgical clips. Impression: No acute osseous abnormality Mild amount of retained stool Signed: Luisito Shafer MDReport Verified Date/Time: 04/16/2018 16:12:35
[2021-07-22] MEDS ORDERED: HYDROCODONE/APAP 5/325 MG TAB ONE (23:20)
[2021-07-22] MEDS ORDERED: DIAZEPAM 5 MG TABLET ONE (23:20)
--- NOTE | 2021-07-22 23:40 | EDPHYS ---
Physician Documentation [facility] Name: Mildred Caldwell Age: 45 yrs Sex: Female : 1975 Arrival Date: 07/22/2021 Time: 21:35 Bed 18 Private MD: ED Physician Jason Grider HPI: 07/22 23:40 This 45 yrs old Female presents to ER via Wheelchair with complaints of Back Pain. ms3 23:40 The patient presents with pain that is acute, with no known mechanism of injury. The ms3 symptoms are located in the left mid back. 23:40 Onset: The symptoms/episode began/occurred 7 year(s) ago. The pain does not radiate. ms3 Associated signs and symptoms: The patient has no apparent associated signs or symptoms. The problem was sustained when bending over, from twisting. Modifying factors: The patient symptoms are alleviated by nothing, the patient symptoms are aggravated by bending, twisting. 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 - Social history:: Smoking status: Patient denies any tobacco usage or history of. Patient/guardian denies using alcohol, street drugs. ROS: 23:40 Constitutional: Negative for fever, and chills. Neck: Negative for injury, pain, and ms3 swelling, Cardiovascular: Negative for chest pain, and palpitations. Respiratory: Negative for shortness of breath, cough, wheezing, and pleuritic chest pain, Abdomen/GI: Negative for abdominal pain, nausea, vomiting, diarrhea, and constipation. 23:40 MS/Extremity: Negative for injury and deformity, Skin: Negative for injury, rash, and discoloration, Psych: Negative for depression, anxiety, suicide ideation, homicidal ideation, and hallucinations. 23:40 Back: Positive for pain at rest, pain with movement. Exam: 23:40 Constitutional: This is a well developed, well nourished patient who is awake, alert, ms3 and in no acute distress. Neck: Trachea midline, no cervical lymphadenopathy. Supple, full range of motion without nuchal rigidity, or vertebral point tenderness. No Meningismus. Chest/axilla: Normal chest wall appearance and motion. Nontender with no deformity. Cardiovascular: Regular rate and rhythm with a normal S1 and S2. No gallops, murmurs, or rubs. Normal PMI, no JVD. No pulse deficits. Respiratory: Lungs have equal breath sounds bilaterally, clear to auscultation and percussion. No rales, rhonchi or wheezes noted. No increased work of breathing, no retractions or nasal flaring. Abdomen/GI: Soft, non-tender, with normal bowel sounds. No distension or tympany. No guarding or rebound. No evidence of tenderness throughout. 23:40 Skin: Warm, dry with normal turgor. Normal color with no rashes, no lesions, and no evidence of cellulitis. Neuro: Awake and alert, GCS 15, oriented to person, place, time, and situation. Cranial nerves II-XII grossly intact. Motor strength 5/5 in all extremities. Sensory grossly intact. Cerebellar exam normal. Normal gait. Psych: Awake, alert, with orientation to person, place and time. Behavior, mood, and affect are within normal limits. 23:40 Back: pain, that is moderate, ROM is normal, normal spinal alignment noted, CVA tenderness, is absent, vertebral tenderness, is not appreciated, muscle spasm, is appreciated in the left mid back. Vital Signs: 22:30 BP 131 / 96; Pulse 78; Resp 17; Temp 98.4; Pulse Ox 100% on R/A; Weight 72.57 kg (R); lg3 Height 5 ft. 5 in. (165.10 cm) (R); Pain 8/10; 07/23 00:33 BP 130 / 81; Pulse 72; Resp 18; Pulse Ox 100% on R/A; lg3 07/22 22:30 Body Mass Index 26.63 (72.57 kg, 165.10 cm) lg3 MDM: 07/22 22:17 Patient medically screened. ms3 23:40 Differential diagnosis: DDD vs strain/sprain vs muscle spasm. Data reviewed: vital ms3 signs, nurses notes. Counseling: I had a detailed discussion with the patient and/or guardian regarding: the historical points, exam findings, and any diagnostic results supporting the discharge/admit diagnosis, the need for outpatient follow up, to return to the emergency department if symptoms worsen or persist or if there are any questions or concerns that arise at home. ED course: Discussed physical exam findings with patient. Patient to follow-up with primary care physician in 2 to 3 days. Patient understands and agrees with plan. All questions were answered. Return precautions discussed include worsening symptoms, or any other concerns. On reevaluation patient is improved, alert and oriented x4, in no apparent distress, nontoxic-appearing, speaking full sentences, ambulatory in emergency department.. Administered Medications: 23:27 Drug: Valium (diazepam) 5 mg Route: PO; lg3 23:27 Follow up: Response: No adverse reaction lg3 23:27 Drug: HYDROcodone-acetaminophen 5 mg-325 mg 1 tabs Route: PO; lg3 23:27 Follow up: Response: No adverse reaction lg3 Disposition Summary: 07/22/21 23:40 Discharge Ordered Location: Home ms3 Condition: Stable ms3 Diagnosis - Back pain ms3 Followup: ms3 - With: Royce De Paz DO - When: 2 - 3 days - Reason: Re-evaluation by your physician Discharge Instructions: - Discharge Summary Sheet ms3 - Acute Back Pain, Adult ms3 Forms: - Medication Reconciliation Form ms3 - Thank You Letter ms3 - Antibiotic Education ms3 - Prescription Opioid Use ms3 Prescriptions: - Cyclobenzaprine 5 mg Oral Tablet - take 1 tablet by ORAL route 3 times per day As needed; 15 tablet; Refills: 0, ms3 Product Selection Permitted Signatures: Kamla Frederick, RN TACHO lg3 Jason Grider DO DO ms3 Corrections: (The following items were deleted from the chart) 23:25 23:24 PSHx: neck; lg3 lg3
--- NOTE | 2021-07-22 23:40 | ER ---
Nurse's Notes [facility] Name: Mildred Caldwell Age: 45 yrs Sex: Female : 1975 Arrival Date: 07/22/2021 Time: 21:35 Bed 18 Private MD: Diagnosis: Back pain Presentation: 07/22 22:30 Chief complaint: Patient states: chronic back pain since 2015. increased pain starting lg3 today. Coronavirus screen: Client denies travel out of the [place] in the last 14 days. At this time, the client does not indicate any symptoms associated with coronavirus-19. Ebola Screen: No symptoms or risks identified at this time. Initial Sepsis Screen: Does the patient meet any 2 criteria? No. Patient's initial sepsis screen is negative. Does the patient have a suspected source of infection? No. Patient's initial sepsis screen is negative. Risk Assessment: Do you want to hurt yourself or someone else? Patient reports no desire to harm self or others. Onset of symptoms was July 22, 2021. 22:30 Method Of Arrival: Wheelchair lg3 22:30 Acuity: JENNIFER 4 lg3 Triage Assessment: 23:24 General: Appears in no apparent distress. uncomfortable, Behavior is calm, cooperative. lg3 Pain: Complains of pain in mid back area Pain currently is 8 out of 10 on a pain scale. EENT: No deficits noted. No signs and/or symptoms were reported regarding the EENT system. Neuro: No deficits noted. [place] Agitation-Sedation Scale (RASS): 0 - Alert and Calm Level of Consciousness is awake, alert, obeys commands, Oriented to person, place, time, situation, Gait is steady. Cardiovascular: No deficits noted. Denies chest pain, shortness of breath, Capillary refill < 3 seconds Clubbing of nail beds is absent JVD is absent Patient's skin is warm and dry. Respiratory: No deficits noted. Airway is patent Trachea midline Respiratory effort is even, unlabored, Respiratory pattern is regular, symmetrical. GI: No deficits noted. No signs and/or symptoms were reported involving the gastrointestinal system. : No deficits noted. No signs and/or symptoms were reported regarding the genitourinary system. Derm: No deficits noted. No signs and/or symptoms reported regarding the dermatologic system. Musculoskeletal: Circulation, motion, and sensation intact. Range of motion: intact in all extremities, Reports pain in back. BARREL BURNER: 23:24 LMP N/A - Hysterectomy lg3 Historical: - Allergies: 23:24 Latex, Natural Rubber; lg3 - Home Meds: 23:24 Metformin Oral PRN [Active]; lg3 - PMHx: 23:24 Chronic pain; diabetes mellitus; Hypertension; lg3 - PSHx: 23:24 back; hysterectomy; left foot sx; left shoulder; lg3 - Immunization history:: Adult Immunizations up to date, Client reports receiving the 2nd dose of the Covid vaccine. - Social history:: Smoking status: Patient denies any tobacco usage or history of. Patient/guardian denies using alcohol, street drugs. Screenin:27 Abuse screen: Denies threats or abuse. Denies injuries from another. Nutritional lg3 screening: No deficits noted. Tuberculosis screening: No symptoms or risk factors identified. Fall Risk None identified. Assessment: 22:30 General: see triage assessment . lg3 23:28 Reassessment: Patient appears in no apparent distress at this time. No changes from 3 previously documented assessment. Patient and/or family updated on plan of care and expected duration. Pain level reassessed. Patient is alert, oriented x 3, equal unlabored respirations, skin warm/dry/pink. 07/23 00:32 Reassessment: Patient appears in no apparent distress at this time. No changes from 3 previously documented assessment. Patient and/or family updated on plan of care and expected duration. Pain level reassessed. Patient is alert, oriented x 3, equal unlabored respirations, skin warm/dry/pink. Patient states symptoms have improved. Neuro: [place] Agitation-Sedation Scale (RASS): 0 - Alert and Calm. Vital Signs: 07/22 22:30 BP 131 / 96; Pulse 78; Resp 17; Temp 98.4; Pulse Ox 100% on R/A; Weight 72.57 kg (R); lg3 Height 5 ft. 5 in. (165.10 cm) (R); Pain 8/10; 07/23 00:33 BP 130 / 81; Pulse 72; Resp 18; Pulse Ox 100% on R/A; lg3 07/22 22:30 Body Mass Index 26.63 (72.57 kg, 165.10 cm) lg3 ED Course: 07/22 21:35 Patient arrived in ED. ja2 22:06 Jason Grider DO is Attending Physician. ms3 23:07 Kamla Frederick RN is Primary Nurse. lg3 23:24 Triage completed. lg3 23:24 Arm band placed on right wrist. lg3 23:28 Patient has correct armband on for positive identification. Bed in low position. Call lg3 light in reach. Side rails up X 1. Client placed on continuous cardiac and pulse oximetry monitoring. NIBP monitoring applied. Door closed. Noise minimized. Warm blanket given. 23:39 Royce De Paz DO is Referral Physician. ms3 07/23 00:49 No provider procedures requiring assistance completed. Patient did not have IV access lg3 during this emergency room visit. Administered Medications: 07/22 23:27 Drug: Valium (diazepam) 5 mg Route: PO; lg3 23:27 Follow up: Response: No adverse reaction lg3 23:27 Drug: HYDROcodone-acetaminophen 5 mg-325 mg 1 tabs Route: PO; lg3 23:27 Follow up: Response: No adverse reaction lg3 Medication: 23:29 VIS not applicable for this client. lg3 Outcome: 23:40 Discharge ordered by MD. ms3 07/23 00:50 Discharged to home via wheelchair, with family. lg3 Condition: stable Discharge instructions given to patient, Instructed on discharge instructions, medication usage, Demonstrated understanding of instructions, medications, Prescriptions given X 1. 00:50 Patient left the ED. lg3 Signatures: Kamla Frederick RN RN lg3 Jason Grider DO DO ms3 Elise Justice ja2 Corrections: (The following items were deleted from the chart) 07/22 23:25 23:24 PSHx: neck; lg3 lg3
[2021-07-23 01:18] VITALS: TEMP 98.4; O2SAT 100
[2021-07-23 01:23] VITALS: BP 130/81
== END 2021-07-23 00:50 | disposition home or self-care (01) ==
LOC: ER 21:16
DX: M54.9 Dorsalgia, unspecified (principal); E11.9 Type 2 diabetes mellitus without complications; I10 Essential (primary) hypertension; Z91.040 Latex allergy status; Z91.048 Other nonmedicinal substance allergy status
CPT/HCPCS: 99283

== ENCOUNTER 2022-01-06 20:52 | Emergency (ER) | payer OTHER ==
--- OUTSIDE RECORDS SUMMARY | 2022-01-06 20:59 | XMS REPORT | Continuity of Care Document ---
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 8-07 area(s) at ity of 5 % cream 00:00: bedtime. [facility] s Medical Branch PROAIR HFA 2020-0 Yes INHALE [...] l EVERY FOUR Branch HOURS NEEDED. lipase-prot Yes [id number]{ Q.[id number] Take [facility] 6-26 lipase} [id number] [facility],000 [facility] (CREON[facility] 16:25: 3D units of [place]i [place] 36,000-114, [address] 000- mouth 3 180,000 (three) unit CpDR times capsule daily. metoclopram Yes 10mg Q.5D Take [address] [facility] HCl 6-26 by mouth 2 [facility] (REGLAN) 10 16:25: (two) Medic al MG tablet 39 times Center daily. lipase-prot Yes [id number]{ Q.[id number] Take [facility] 6-26 lipase} [id number] [facility],000 [facility] (CREON) 16:25: 3D units of [place]i [place] 36,000-114, [address] 000- mouth 3 180,000 (three) unit CpDR times capsule daily. metoclopram Yes 10mg Q.5D Take [address] HCl 6-26 by mouth 2 [facility] (REGLAN) 10 16:25: (two) Medic al MG tablet 39 times Center daily. lipase-prot Yes [id number]{ Q.[id number] Take [facility] 6-26 lipase} [id number] [facility],000 [facility] (CREON) 16:25: 3D units of [place]i [place] 36,000-114, [address] 000- mouth 3 180,000 (three) unit CpDR times capsule daily. metoclopram Yes 10mg Q.5D Take [address] [address] [facility] HCl 6-26 by mouth 2 [facility] (REGLAN) 10 16:25: (two) Medic al MG tablet 39 times Center daily. Na Yes [id number] [SUPREP] [facility] or Sulfate-K 2-26 Take as College Sulfate-Mg 00:00: directed. of Sulf 00 Medicin (SUPREP e BOWEL PREP KIT) 17.5-3.13-1 .6 GM/177ML SOLN Plecanatide Yes [id number] 3mg Take 3 mg [place] (TRULANCE) 2 by mouth Colle ge 3 MG TABS 00:00: daily. of 00 Medicin e metoclopram Yes [id number] 10mg Take 1 Tab [place] pedro 2- by mouth [place] (REGLAN) 10 00:00: two times o f MG tablet 00 daily. Medicin e Pancrelipas Yes 2{capsu Take 2 B aylor e, 04-16 le} Caps by [place] Lip-Prot-Am 00:00: mouth 3 of yl, (CREON) 00 times Medicin 82476 units daily e CPEP (with meals). polyethylen Yes Abdominal Add H arris e glycol 09-19 bloating lukewarm Hea lth (GOLYTELY) 00:00: drinking 236-22.74-6 00 water to .74 -5.86 the fill gram oral michael (4 solution liters) and shake. Drink as directed by your doctor.. polyethylen Yes Abdominal Add H arris e glycol 09-19 bloating lukewarm Hea lth (GOLYTELY) 00:00: drinking 236-22.74-6 00 water to .74 -5.86 the fill gram oral michael (4 solution liters) and shake. Drink as directed by your doctor.. polyethylen Yes Abdominal Add H arris e glycol 09-19 bloating lukewarm Hea lth (GOLYTELY) 00:00: drinking 236-22.74-6 00 water to .74 -5.86 the fill gram oral michael (4 solution liters) and shake. Drink as directed by your doctor.. venlafaxine Yes Mood swings 37.5mg QD Take 1 [facility] (EFFEXOR 7-06 capsule by Healt h XR) 37.5 mg 00:00: mouth extended 00 daily. release capsule venlafaxine Yes Mood swings 37.5mg QD Take 1 [facility] (EFFEXOR 7-06 capsule by Healt h XR) 37.5 mg 00:00: mouth extended 00 daily. release capsule venlafaxine Yes Mood swings 37.5mg QD Take 1 [place] (EFFEXOR 7-06 capsule by [facility] XR) 37.5 mg 00:00: mouth extended 00 daily. release capsule acetaminoph 0 Yes BRCA gene 1{tbl} Take 1 [place] en-codeine 2-27 positive tablet by [facility] (TYLENOL/CO 00:00: mouth DEINE #3) 00 every 4 300-30 mg hours as per tablet needed for Pain. traMADol Yes BRCA gene 50mg Take 1 [facility] (ULTRAM) 50 2-27 mutation tablet by Health mg tablet 00:00: positive mouth 00 every 6 hours as needed for Pain. acetaminoph Yes BRCA gene 1{tbl} Take 1 [place] en-codeine 2-27 positive tablet by [facility] (TYLENOL/CO 00:00: mouth DEINE #3) 00 every 4 300-30 mg hours as per tablet needed for Pain. traMADol Yes BRCA gene 50mg Take 1 [facility] [facility] (ULTRAM) 50 2-27 mutation tablet by [facility] mg tablet 00:00: positive mouth 00 every 6 hours as needed for Pain. acetaminoph Yes BRCA gene 1{tbl} Take 1 [place] en-codeine 2-27 positive tablet by [facility] (TYLENOL/CO 00:00: mouth DEINE #3) 00 [...] 2 [place] [facility] 2-[facility] positive mouth 325 mg 00 every 6 tablet hours as needed for Pain. ibuprofen Yes BRCA gene 600mg Take 1 [place] (MOTRIN) 2-06 mutation tablet by alth 600 mg 00:00: positive mouth tablet 00 every 6 hours as needed for Pain. gabapentin Yes BRCA gene 100mg Take 1 [place] (NEURONTIN) 2-06 mutation capsule by [facility] 100 mg 00:00: positive mouth 3 capsule 00 times daily. acetaminoph Yes BRCA gene 650mg Take 2 [facility] en 2-[facility] 00:00: positive mouth 325 mg 00 [...] 2 [place]en en 2-06 mutation tablets by [facility] (TYLENOL) 00:00: positive mouth 325 mg 00 every 6 tablet hours as needed for Pain. promethazin 2016-02 Yes BRCA gene 25mg Take 1 [place] e 1-14 positive tablet by [facility] (PHENERGAN) 00:00: mouth 25 mg 00 every 6 tablet hours as needed for Nausea or Vomiting. promethazin 2016-02 Yes BRCA gene 25mg Take 1 [place] e 1-14 positive tablet by [facility] (PHENERGAN) 00:00: mouth 25 mg 00 every 6 tablet hours as needed for Nausea or Vomiting. promethazin 2016-02 Yes BRCA gene 25mg Take 1 [place] e 1-14 positive tablet by [facility] (PHENERGAN) 00:00: mouth 25 mg 00 [...] Sagastume [place]ris liquid 0-16 ge} Package by [facility] 00:00: mouth 2 00 times daily. BOOST oral 2016-02 Yes 1{packa Q.5D Take 1 [place] [facility]ris liquid 0-16 ge} Package by Health 00:00: mouth 2 00 times daily. BOOST oral 2017- Yes 1{packa Q.5D Take 1 [place] liquid 0-16 ge} Package by [facility] 00:00: mouth 2 00 times daily. ondansetron 2016-02 Yes 4mg Take 1 [place] is (ZOFRAN) 4 0-12 tablet by Heal th mg tablet 00:00: mouth 00 every 8 hours as needed for up to 21 doses for Nausea. ondansetron 2016-02 Yes 4mg Take 1 [place] is (ZOFRAN) 4 0-12 tablet by Heal th mg tablet 00:00: mouth 00 every 8 hours as needed for up to 21 doses for Nausea. ondansetron 2016-02 Yes 4mg Take 1 [place] is (ZOFRAN) 4 0-12 tablet by Heal th mg tablet 00:00: mouth 00 every 8 hours as needed for up to 21 doses for Nausea. acetaminoph 2016-02 Yes 2{tbl} Take 2 [place]ast[place]ris en-codeine 0-09 tablets by [facility] (TYLENOL/CO 00:00: mouth DEINE #3) 00 every 4 300-30 mg hours as per tablet needed for Pain. silver 2016-02 Yes QD Apply to [place] sulfADIAZIN 0-09 affected Heal th E 00:00: area daily (SILVADENE) 00 Apply to 1 % topical purple cream discolored areas of breasts. acetaminoph 2016-02 Yes 2{tbl} Take 2 [place]ast[place]ris en-codeine 0-09 tablets by [facility] (TYLENOL/CO 00:00: mouth DEINE #3) 00 every 4 300-30 mg hours as per tablet needed for Pain. silver 2016-02 Yes QD Apply to [place] sulfADIAZIN 0-09 affected Heal th E 00:00: area daily (SILVADENE) 00 Apply to 1 % topical purple cream discolored areas of breasts. acetaminoph 2016-02 Yes 2{tbl} Take 2 [place]ris en-codeine 0-09 tablets by [facility] (TYLENOL/CO 00:00: mouth DEINE #3) 00 every 4 300-30 mg hours as per tablet needed for Pain. silver 2016-02 Yes QD Apply to [place] sulfADIAZIN 0-09 affected Heal th E 00:00: area daily (SILVADENE) 00 Apply to 1 % topical purple cream discolored areas of breasts. No known No Univers medications ity [facility] [place] [facility] No known No [facility] medications [facility]y [facility] [place] [facility] [place] No known No Univers medications ity of [facility] No known No Univers medications ity of [facility] No known No Univers medications ity of [place] [facility] No known No Univers medications [facility]y [facility] [place] [facility] Tylenol # 3 Tylenol # 3 Yes Jerod one tab [facility] No known No Univers medications ity of [facility] No known No Univers medications ity of [facility] No known No Univers medications ity of [place] [facility] No known No Univers medications ity of [facility] No known No Univers medications ity [facility] No known No Univers medications ity [facility] No known No Univers medications ity of [facility] No known No Univers medications ity of [facility] Immunizations Ordered Filled Immunization Date Status Comments [facility] e Immunization Name Name FLUCELVAX QUAD PF 2018-02-[address] [facility] Hospital FLUCELVAX QUAD PF 2018-02-[address] 00:00:00 Hospital Influenza Virus 2018-02-09 Completed Universit y of Vaccine Quad IM, 00:00:00 [facility] dical Preserv and ABX Branch Free 2-64 YRS Influenza Virus 2018-02-09 Completed Universit y of Vaccine Quad IM, 00:00:00 [facility] dical Preserv and ABX Branch Free 2-64 YRS Influenza Virus 2018-02-09 Completed Universit y of Vaccine Quad IM, 00:00:00 [place] [facility] dical Preserv and ABX Branch Free 2-64 YRS Influenza Virus 2018-02-09 Completed Universit y of Vaccine Quad IM, 00:00:00 [place] [facility] dical Preserv and ABX Branch Free 2-64 YRS Influenza Virus 2018-02-09 Completed Universit y of Vaccine Quad IM, 00:00:00 [place] Me dical Preserv and ABX Branch Free 2-64 YRS Influenza Virus 2018-02-09 Completed Universit y of Vaccine Quad IM, 00:00:00 [place] Me dical Preserv and ABX Branch Free [...] Me dical Preserv and ABX Branch Free 6 MO-64 YRS Influenza Virus 2018-02-09 Completed Universit y of Vaccine [facility] IM, 00:00:00 [place] Me dical Preserv and ABX Branch Free 6 MO-64 YRS Influenza Virus 2018-02-09 Completed Universit y of Vaccine [facility] IM, 00:00:00 [place] Me dical Preserv and ABX Branch Free 6 MO-64 YRS Influenza Virus 2018-02-09 Completed Universit y of Vaccine [facility] IM, 00:00:00 [place] Me dical Preserv and ABX Branch Free 6 MO-64 YRS Influenza Virus 2018-02-09 Completed Universit y of Vaccine [facility] IM, 00:00:00 [place] Me dical Preserv and ABX Branch Free 6 MO-64 YRS Influenza Virus 2018-02-09 Completed Universit y of Vaccine Quad IM, 00:00:00 [place] Me dical Preserv and ABX Branch Free 2-64 YRS Influenza Virus 2018-02-09 Completed Universit y of Vaccine Quad IM, 00:00:00 [place] [facility] dical Preserv and ABX Branch Free 2-64 YRS FLUCELVAX QUAD PF 2018-02-[address] 00:[facility] Influenza Vaccine 2016-11-25 Completed [facility] 00:00:00 Influenza Vaccine 2016-11-25 Completed [facility] 00:00:00 Influenza Virus 2016-11-25 Completed Universit y of Vaccine 00:00:00 [facility] Influenza Virus 2016-11-25 Completed Universit y of Vaccine 00:00:00 [facility] Influenza Virus 2016-11-25 Completed Universit y of Vaccine 00:00:00 [facility] Influenza Virus 2016-11-25 Completed Universit y of Vaccine 00:00:00 [facility] Influenza Virus 2016-11-25 Completed Universit y of Vaccine 00:00:00 [facility] Influenza Virus 2016-11-25 Completed Universit y of Vaccine 00:00:00 [facility] Influenza Virus 2016-11-25 Completed Universit y of Vaccine 00:00:00 [facility] Influenza Virus 2016-11-25 Completed Universit y of Vaccine 00:00:00 [facility] Influenza Virus 2016-11-25 Completed Universit y of Vaccine 00:00:00 [facility] Influenza Virus 2016-11-25 Completed Universit y of Vaccine 00:00:00 [facility] Influenza Virus 2016-11-25 Completed Universit y of Vaccine 00:00:00 [facility] Influenza Virus 2016-11-25 Completed Universit y of Vaccine 00:00:00 [facility] Influenza Virus 2016-11-25 Completed Universit y of Vaccine 00:00:00 [facility] Influenza Virus 2016-11-25 Completed Universit y of Vaccine 00:00:00 [facility] Influenza Virus 2016-11-25 Completed Universit y of Vaccine 00:00:00 [facility] Influenza Virus 2016-11-25 Completed Universit y of Vaccine 00:00:00 [facility] Influenza Vaccine 2016-11-25 Completed [facility] 00:00:00 Vital Signs Vital Name Observation Time Observation Value Comments Source Systolic blood 2021-12-26 22:22:00 137 mm[Hg] Univer sity of pressure [facility] Diastolic blood 2021-12-26 22:22:00 88 mm[Hg] Unive rsity of pressure [facility] Heart rate 2021-12-26 22:22:00 61 /min [facility] Oxygen saturation in 2021-12-26 22:22:00 100 /min [facility] Arterial blood by [facility] Pulse oximetry [place] Body height 2021-12-26 22:21:00 162.6 cm [facility] Body weight 2021-12-26 22:21:00 68.04 kg [facility] BMI 2021-12-26 22:21:00 25.75 kg/m2 [facility] Systolic blood 2020-10-21 13:26:00 153 mm[Hg] Univer sity of pressure [facility] Diastolic blood 2020-10-21 13:26:00 103 mm[Hg] Unive rsity of pressure [facility] Heart rate 2020-10-21 13:26:00 79 /min [facility] [place] [facility] Body height 2020-10-21 13:24:00 167.6 cm [facility] [place] [facility] Body weight 2020-10-21 13:24:00 72.576 kg [facility] [place] [facility] BMI 2020-10-21 13:24:00 25.82 kg/m2 [facility] [place] [facility] Systolic blood 2020-07-26 19:53:00 137 mm[Hg] Univer sity of pressure [place] [facility] Diastolic blood 2020-07-26 19:53:00 88 mm[Hg] Unive rsity of pressure [place] [facility] Heart rate 2020-07-26 19:53:00 68 /min [facility]i [facility] [place] [facility] Body temperature 2020-07-26 19:53:00 36.94 Liv Univ ersity of [place] [facility] Respiratory rate 2020-07-26 19:53:00 18 /min Univ ersity of [place] [facility] Body height 2020-07-26 19:53:00 165.1 cm [facility] [place] [facility] Body weight 2020-07-26 19:53:00 76.204 kg [facility]i ty [facility] [place] [facility] BMI 2020-07-26 19:53:00 27.96 kg/m2 [facility] [place] [facility] Systolic blood 2020-07-26 19:53:00 137 mm[Hg] Univer sity of pressure [place] [facility] Diastolic blood 2020-07-26 19:53:00 88 mm[Hg] Unive rsity of pressure [place] [facility] Heart rate 2020-07-26 19:53:00 68 /min [facility]i ty [facility] [place] [facility] Body temperature 2020-07-26 19:53:00 36.94 Liv Univ ersity of [place] [facility] Respiratory rate 2020-07-26 19:53:00 18 /min Univ ersity of [place] [facility] Body height 2020-07-26 19:53:00 165.1 cm [facility] [place] [facility] Body weight 2020-07-26 19:53:00 76.204 kg [facility] [place] [facility] BMI 2020-07-26 19:53:00 27.96 kg/m2 [facility] [place] [facility] Systolic blood 2020-05-25 19:48:00 125 mm[Hg] Univer sity of pressure [place] [facility] Diastolic blood 2020-05-25 19:48:00 85 mm[Hg] Unive rsity of pressure [place] [facility] Heart rate 2020-05-25 19:48:00 73 /min [facility] [place] [facility] Respiratory rate 2020-05-25 19:48:00 19 /min Univ ersity of [place] [facility] Body height 2020-05-25 19:48:00 165.1 cm [facility] [place] [facility] Body weight 2020-05-25 19:48:00 77.474 kg [facility] [place] [facility] BMI 2020-05-25 19:48:00 28.42 kg/m2 [facility] ty [facility] [place] [facility] Oxygen saturation in 2020-05-25 19:48:00 97 /min University of Arterial blood by [facility] Pulse oximetry Branch Systolic blood 2020-05-21 19:31:00 146 mm[Hg] Univer sity of pressure [place] [facility] Diastolic blood 2020-05-21 19:31:00 90 mm[Hg] Unive rsity of pressure [place] [facility] Heart rate 2020-05-21 19:31:00 78 /min Universi ty [facility] [place] [facility] Oxygen saturation in 2020-05-21 19:31:00 99 /min University of Arterial blood by [facility] Pulse oximetry Branch Body height 2020-05-21 19:23:00 167.6 cm [facility] [place] [facility] Body weight 2020-05-21 19:23:00 76.975 kg [facility] ty [facility] [place] [facility] BMI 2020-05-21 19:23:00 27.41 kg/m2 [facility] [place] [facility] Systolic blood 2020-03-16 16:20:00 142 mm[Hg] Univer sity of pressure [place] [facility] Diastolic blood 2020-03-16 16:20:00 84 mm[Hg] Unive rsity of pressure [place] [facility] Heart rate 2020-03-16 16:20:00 77 /min [facility] [place] [facility] Body temperature 2020-03-16 16:20:00 36.56 Liv Univ ersity of [place] [facility] Respiratory rate 2020-03-16 16:20:00 14 /min Univ ersity of [place] [facility] Oxygen saturation in 2020-03-16 16:20:00 99 /min University of Arterial blood by [facility] Pulse oximetry Branch Body height 2020-03-12 18:40:00 167.6 cm Universi ty of [facility] Body weight 2020-03-12 18:40:00 72.576 kg Universi ty of [facility] BMI 2020-03-12 18:40:00 25.84 kg/m2 Universi ty of [facility] Systolic blood 2019-09-03 20:23:00 124 mm[Hg] Univer sity of pressure [facility] Diastolic blood 2019-09-03 20:23:00 81 mm[Hg] Unive rsity of pressure [facility] Heart rate 2019-09-03 20:23:00 70 /min Universi ty of [facility] Body height 2019-09-03 20:23:00 167.6 cm Universi ty of [facility] Body weight 2019-09-03 20:23:00 72.576 kg stated Universi ty of [facility] BMI 2019-09-03 20:23:00 25.82 kg/m2 Universi ty of [facility] Systolic blood 2019-04-16 14:10:00 129 mm[Hg] Univer sity of pressure [facility] Diastolic blood 2019-04-16 14:10:00 86 mm[Hg] Unive rsity of pressure [facility] Heart rate 2019-04-16 14:10:00 69 /min Universi ty of [facility] Body height 2019-04-16 14:10:00 162.6 cm Universi ty of [facility] Body weight 2019-04-16 14:10:00 72.122 kg Universi ty of [facility] BMI 2019-04-16 14:10:00 27.29 kg/m2 Universi ty of [facility] Systolic blood 2019-04-09 16:11:00 124 mm[Hg] Univer sity of pressure [facility] Diastolic blood 2019-04-09 16:11:00 87 mm[Hg] Unive rsity of pressure [facility] Heart rate 2019-04-09 16:11:00 70 /min Universi ty of [facility] Respiratory rate 2019-04-09 16:11:00 19 /min Univ ersity of [facility] Body height 2019-04-09 16:11:00 162.6 cm Universi ty of [facility] Body weight 2019-04-09 16:11:00 71.487 kg Universi ty of [facility] BMI 2019-04-09 16:11:00 27.05 kg/m2 Universi ty [facility] Oxygen saturation in 2019-04-09 16:11:00 99 /min University of Arterial blood by [facility] Pulse oximetry Branch Systolic blood 2019-04-07 20:17:00 131 mm[Hg] Univer sity of pressure [facility] Diastolic blood 2019-04-07 20:17:00 83 mm[Hg] Unive rsity of pressure [facility] Body height 2019-04-07 20:17:00 162.6 cm Universi ty [facility] Systolic blood 2018-10-04 14:39:00 136 mm[Hg] [facility] pressure Medicine Diastolic blood 2018-10-04 14:39:00 91 mm[Hg] [facility] pressure Medicine Heart rate 2018-10-04 14:39:00 78 /min [facility] Body height 2018-10-04 14:39:00 165.1 cm [facility] Body weight 2018-10-04 14:39:00 71.215 kg [facility] BMI 2018-10-04 14:39:00 26.13 kg/m2 [facility] Systolic blood 2018-10-04 14:39:00 136 mm[Hg] [facility] of pressure Medicine Diastolic blood 2018-10-04 14:39:00 91 mm[Hg] [facility] Medicine Heart rate 2018-10-04 14:39:00 78 /min [facility] Body height 2018-10-04 14:39:00 165.1 cm [facility] Body weight 2018-10-04 14:39:00 71.215 kg [facility] BMI 2018-10-04 14:39:00 26.13 kg/m2 [facility] Systolic blood 2020-06-18 16:00:00 122 mm[Hg] [facility] Diastolic blood 2020-06-18 16:00:00 79 mm[Hg] [facility] pressure Heart rate 2020-06-18 16:00:00 69 /min [facility] Respiratory rate 2020-06-18 16:00:00 18 /min [facility] Oxygen saturation in 2020-06-18 16:00:00 97 /min [facility] Arterial blood by Pulse oximetry Body temperature 2020-06-18 15:32:00 36.72 Liv [facility] Body height 2020-06-18 14:00:00 167.6 cm [facility] Body weight 2020-06-18 14:00:00 77.111 kg [facility] BMI 2020-06-18 14:00:00 27.44 kg/m2 [facility] Procedures Procedure Date / Time Performing Clinician Source Performed EXTERNAL PROVIDER 2020-08-19 05:01:00 Doctor Unassigned, No [facility] RELEASE 2020-07-26 05:01:00 Doctor Unassigned, No [facility] TO [facility] AUTHORIZATION FOR 2020-06-30 05:01:00 Doctor Unassigned, No [facility] POST MYELOGRAM LUMBAR 2020-06-18 15:33:36 [facility] IR MYELOGRAM LUMB INCL 2020-06-18 15:06:03 [facility] INJ W S&I ASSIGNMENT OF BENEFITS 2020-05-21 17:30:55 Doctor Unassigned, No [facility] MRI SPINE EXTERNAL STUDY 2020-03-26 20:47:00 [facility] XR SPINE EXTERNAL STUDY 2020-03-26 19:37:00 [facility] CT SPINE EXTERNAL STUDY 2020-03-26 19:35:00 [facility] FL TIME OR 2020-03-16 14:50:00 Jed Coppola [facility] (NON-REPORTABLE) Medical [place] DAY SURGERY - ADC 2020-03-16 06:01:00 [facility] 2020-03-15 19:38:24 Jed Coppola [facility] NOTICE OF PRIVACY 2020-03-15 19:19:39 Doctor Unassigned, No [facility] Name [facility] CONSENT/REFUSAL FOR 2020-03-15 19:19:16 Doctor Unassigned, No [facility] TREATMENT Name [facility] ASSIGNMENT OF BENEFITS 2020-03-15 19:18:57 Doctor Unassigned, No [facility] DSU PRE-OP 2020-03-11 06:01:00 Doctor Unassigned, No [facility] XRAY Spine Thoracic 4+ 2020-03-08 00:00:00 [facility] [address]46 CT Spine lumbar wo 2020-03-08 00:00:00 [facility] contrast 27145 MRI Spine thoracic wo 2020-03-08 00:00:00 [facility] contrast [id number] REFERRAL- 2019-08-11 05:01:00 Doctor Unassigned, No [facility] REQUEST/RESPONSE [facility] AUTHORIZATION FOR 2019-07-26 05:01:00 Doctor Unassigned, No [facility] RELEASE OF PHI [facility] MR FOOT LEFT WO CONTRAST 2019-07-17 13:55:24 Jed Coppola [facility] ASSIGNMENT OF BENEFITS 2019-04-07 19:58:22 Doctor Unassigned, No [facility] EXTERNAL PROVIDER - ADC 2019-03-11 06:01:00 Doctor Unassigned, N o [facility] Plan of Care Planned Activity Planned Date Details Comments Source Future Scheduled 2028-08-[address] [facility] colon (procedure) [code = 406075640] Future Scheduled 2028-08-[address] [facility] Test 00:00:00 [facility] colon (procedure) [code = 652804401] Future Scheduled 2021-12-22 HEPATITIS B VACCINES [facility] Test 09:04:02 (1 of 3 - 3-dose series) [code = HEPATITIS B VACCINES (1 of 3 - 3-dose series)] Future Scheduled 2021-12-22 COVID-19 VACCINE (#1) [facility] Test 09:04:02 [code = COVID-19 VACCINE (#1)] Future Scheduled 2021-12-22 Hepatitis C screening [facility] Test 09:04:02 (procedure) [code = 201035492] Future Scheduled 2021-12-22 [facility]ening for [facility] Test 09:04:02 malignant neoplasm of cervix (procedure) [code = 256293611] Future Scheduled 2021-12-22 BREAST CANCER [facility] Test 09:04:02 SCREENING [code = BREAST CANCER SCREENING] Future Scheduled 2021-12-22 COLONOSCOPY SCREENING [facility] Test 09:04:02 [code = COLONOSCOPY SCREENING] Future Scheduled 2021-12-22 INFLU[facility]ZA VACCINE [facility] Test 09:04:02 [code = INFLUENZA VACCINE] Future Scheduled 2021-11-19 [facility] 00:[facility]:00 Seasonal (>/= 19 yrs) [code = IMM Influenza Seasonal (>/= 19 yrs)] Future Scheduled 2021-08-01 [facility] 00:[facility]:00 malignant neoplasm of cervix (procedure) [code = 858195708] Future Scheduled 2021-08-01 [facility] 00:00:00 malignant neoplasm of cervix (procedure) [code = 828453143] Future Scheduled 2021-08-01 [facility] 00:00:00 malignant neoplasm of cervix (procedure) [code = 724210271] Future Scheduled 2021-02-22 COVID-19 VACCINE (1) Met [facility] Test 12:07:17 [code = COVID-19 VACCINE (1)] Future Scheduled 2021-02-22 Hepatitis C screening [facility] Test 12:07:17 (procedure) [code = 852426120] Future Scheduled 2021-02-22 [facility] Test 12:07:17 malignant neoplasm of cervix (procedure) [code = 462720385] Future Scheduled 2021-02-22 INFLUENZA VACCINE [facility] Test 12:07:17 [code = INFLUENZA VACCINE] Future Scheduled 2021-02-22 COVID-19 VACCINE (1) Met [facility] Test 12:07:17 [code = COVID-19 VACCINE (1)] Future Scheduled 2021-02-22 Hepatitis C screening [facility] Test 12:07:17 (procedure) [code = 168729792] Future Scheduled 2021-02-22 [facility] Test 12:07:17 malignant neoplasm of cervix (procedure) [code = 501058065] Future Scheduled 2021-02-22 INFLUENZA VACCINE [facility] Test 12::17 [code = INFLUENZA VACCINE] Future Scheduled 2020-11-19 [facility] 00:00:00 Seasonal Oct to April (>/= 19 yrs) [code = IMM Influenza Seasonal Oct to April (>/= 19 yrs)] Future Scheduled 2020-11-19 [facility]MM [facility] 00:00:00 Seasonal Oct to April (>/= 19 yrs) [code = IMM Influenza Seasonal Oct to April (>/= 19 yrs)] Future Scheduled 2020-10-[address] [facility] Test 00:00:00 (#1) [code = [facility] INFLUENZA VACCINE (#1)] Future Scheduled 2020-10-[address] [facility] Test 00:00:00 (#1) [code = [facility] INFLUENZA VACCINE (#1)] Future Scheduled 2020-02-[address] [facility] Test 00:00:00 (12+) [code = [facility] DEPRESSION SCREENING (12+)] Future Scheduled 2020-02-[address] [facility] Test 00:00:00 (12+) [code = [facility] DEPRESSION SCREENING (12+)] Future Scheduled 2019-12-[address] [facility] Test 00:00:00 (procedure) [code = [facility] 57174068] Future Scheduled 2019-12-[address] [facility] Test 00:00:00 (procedure) [code = [facility] 88182735] Future Scheduled 2017-12-27 Breast Cancer Scrn Harri [...] malignant neoplasm of cervix (procedure) [code = 954377309] Future Scheduled 2004 [facility] 00:[facility]:00 malignant neoplasm of cervix (procedure) [code = 803921603] Future Scheduled 2004 [facility] 00:00:00 malignant neoplasm of cervix (procedure) [code = 086100065] Future Scheduled 1995-12-[address] [facility] Test 00:00:00 [facility] cervix (procedure) [code = 594086365] Future Scheduled 1995-12-[address] [facility] Test 00:00:00 [facility] cervix (procedure) [code = 446629451] Future Scheduled 1993 DTAP/TDAP/TD [facility]ACCINES [facility] Test 00:00:00 (1 - Tdap) [code = Medical C enter DTAP/TDAP/TD VACCINES (1 - Tdap)] Future Scheduled 1993 DTAP/TDAP/TD VACCINES [facility] Test 00:00:00 (1 - Tdap) [code = Medical C enter DTAP/TDAP/TD VACCINES (1 - Tdap)] Future Scheduled 1992 HEPATITIS C [facility]CRE[facility]ING [facility] Test 00:00:00 [code = HEPATITIS [facility] Medical Center SCREENING] Future Scheduled 1992 HEPATITIS C [facility] Test 00:00:00 [code = HEPATITIS C Medical Center SCREENING] Future Scheduled 1986 COVID-19 VACCINE (1) [...] [code = COVID-19 Vaccine (1)] Future Scheduled 1975-06-23 COVID-19 Vaccine (#1) [facility] Test 00:00:00 [code = COVID-19 Vaccine (#1)] Future Scheduled MAMMOGRAM ANNUAL [employer] Test [code = MAMMOGRAM Medicine ANNUAL] Future Scheduled TETANUS SHOT (ADULT) [facility] Test [code = TETANUS SHOT Medicin e (ADULT)] Future Scheduled BMI FOLLOW UP PLAN [facility] Test [code = BMI FOLLOW UP Medici ne PLAN] Future Scheduled HIV SCREENING [code = Ba [facility] of Test HIV SCREENING] Medicine Future Scheduled CERVICAL CANCER [facility] ollege of Test SCREENING 3 YEAR Medicine FOLLOW UP [code = CERVICAL CANCER SCREENING 3 YEAR FOLLOW UP] Future Scheduled FLU VACCINE > 6 [facility] of Test MONTHS [code = FLU Medicine VACCINE > 6 MONTHS] Encounters Start End Encounter Admission Attending Care Care Encounter Source Date/Time Date/Time Type Type Clinicians Facility Department ID 2021-03-16 [facility] [id number] Common 13:54:33 [id number] [facility] 2020-12-18 Outpatient Felicinao COPPOLA JR [facility] LENKA [id number] Univers 18:39:16 JED contreras [facility] 2016-12-[address] [facility] [id number] H arris 19:13:58 Health 2016-11-[address] [facility] [id number] H arris 15:22:01 Health 2016-11-[address] [facility] [id number] H arris 01:48:38 Health 2016-11-[address] [facility] [id number] H arris 01:48:30 Health 2016-11-20 Inpatient [facility] [id number] H arris 05:55:00 Health 2022-01-06 2022-01-06 [facility]phone [facility] 1.2.860.484 [id number] Univers 00:00:00 00:00:00 BakariSoftLayer 350.1.13.10 it y of [place] 4.2.7.2.686 [place] as BURKE?BLEA [phone] Mt melenedra [facility] [address] MEDICAL OFFICE BUILDING 2022-01-04 2022-01-04 Telephone [facility] 1.2.179.195 [id number] Univers 00:00:00 00:00:00 Mobicow 350.1.13.10 it y of [place] 4.2.7.2.686 [place] BURKE?BLEA [phone] Mt chidi HOWARD [address] MEDICAL OFFICE BUILDING 2021-12-282021-12-28 Telephone [facility] 1.2.933.997 [id number] Univers 00:00:00 00:00:00 Bakari [facility] 350.1.13.10 it y of [facility] 4.2.7.2.686 [place] BURKE?BLEA [phone] Mt chidi HOWARD 198 [facility] 2021-12-26 2021-12-26 Outpatient R [facility] [id number] Univers 16:27:58 23:59:00 [facility] 2021-12-26 2021-12-26 Office [facility] 1.2.840.114 [id number] Univers 14:00:00 14:15:00 Visit [facility] 350.1.13.10 it y of [place] 4.2.7.2.686 [place] as BURKE?BLEA [phone] [address] 2021-08-24 2021-08-24 Outpatient Feliciano [facility] [id number] Univers 13:30:00 13:30:00 [facility] 2021-07-26 2021-07-26 Outpatient Feliciano [facility] [id number] Univers 09:30:00 09:30:00 [facility] 2020-12-07 2020-12-07 Travel 1.2.840.1 1.2.531.652 [id number] Methodi 00:00:00 00:00:[address] 3.430.2.7 0.2.7.3.698 Ho spita .3.330563 084.8 l .8 2020-11-04 2020-11-04 Outpatient Feliciano ST[facility] [id number] Univers 08:30:00 08:30:[address] [facility] 2020-11-02 2020-11-02 Outpatient [facility]o [facility] [id number] Univers 08:30:00 08:30:00 [facility] 2020-10-28 2020-10-28 Outpatient Feliciano [facility] [id number] Univers 16:15:00 16:15:00 BAKARI contreras [facility] 2020-10-21 2020-10-21 Office Bakari Doshi [facility] 1.2.840.114 [id number] [facility] 08:12:07 08:27:07 Visit Olman Stuart [facility] 350.1.13.10 ity of [place] 4.2.7.2.686 [place] Burke?Blea [phone] [address] Office [facility] 2020-10-21 2020-10-21 Outpatient R NARCISO [facility] [id number] [facility] 08:15:00 08:15:00 OLMAN contreras [facility] 2020-09-02 2020-09-02 Office Marcus 1.2.840.1 [id number] Methodi 14:52:10 15:07:10 Visit Konrad Sanders 85763.1.1 461 s t 3.430.2.7 Hospit a .3.947822 l .8 2020-08-19 2020-08-19 Orders Doctor BRYAN 1.2.840.114 [id number] 00:00:00 00:00:00 Only Unassigned, KAIT 350.1.13.10 [facility] 4.2.7.2.686 [id number] [facility] 2020-08-19 2020-08-19 Orders Doctor BRYAN 1.2.840.114 [id number] [facility] 00:00:00 00:00:00 Only Unassigned, KAIT 350.1.13.10 ity of [place] [facility] 4.2.7.2.686 [place] as [phone] [address] 2020-08-12 2020-08-12 Case Nicolette MTANKIT 1.2.219.343 [id number] 00:00:00 00:00:00 Management Luis Flaherty 350.1.13.10 [place] 4.2.7.2.686 Professio [phone] [address] 2020-08-12 2020-08-12 Case Nicolette [facility] 1.2.474.256 [id number] [facility] 00:00:00 00:00:00 Management Luis Flaherty 350.1.13.10 ity [facility] [place].2.[place] Profess[place] [phone] [address] 2020-07-27 2020-07-27 Outpatient R KAYODE [facility] [id number] Univers 11:30:00 11:30:[address] [facility] 2020-07-26 2020-07-26 Office [facility] 1.2.696.071 [id number] 14:43:48 15:35:48 Visit Luis Flaherty 350.1.13.10 [place] 4.2.7.2.686 Professio [phone] [address] 2020-07-26 2020-07-26 Office [facility] 1.2.835.697 [id number] [facility] 14:43:48 15:35:48 Visit Luis Flaherty 350.1.13.10 i ty [facility] 4.2.7.2.[place] Profess[place] [phone] [address] 2020-07-26 2020-07-26 [facility] [id number] [facility] 10:45:00 10:45:[address] [facility] 2020-07-26 2020-07-26 Orders Doctor BRYAN 1.2.840.114 [id number] 00:00:00 00:00:00 Only UnassignedKAIT 350.1.13.10 [place] [facility] [phone] 009 2020-07-26 2020-07-26 Telephone [facility] 1.2.840.114 [id number] 00:00:00 00:00:00 Luis Flaherty 350.1.13.10 [place] 4.2.7.2.686 Professio [phone] [address] 2020-07-26 2020-07-26 Orders Doctor ADAMS 1.2.840.114 [id number] Univers 00:00:00 00:00:00 Only Unassigned, KAIT 350.1.13.10 ity of [place] [facility] 4.2.7.2.686 [place] as [phone] [facility] [address] 2020-07-26 2020-07-26 Telephone Nicolette [facility] 1.2.840.114 [id number] [facility] 00:00:00 00:00:00 Luis Flaherty 350.1.13.10 i ty of [place].2.[place] Profess[place] [phone] Mt dical [address] 2020-07-09 2020-07-09 Outpatient R [facility] [id number] Univers 13:15:00 13:15:00 ity of [facility] 2020-07-06 2020-07-06 Outpatient CHRONISTER, [facility] 750 [id number] Memoria 05:25:00 17:15:00 MARGARITA Vaughn [facility] 2020-06-30 2020-06-30 Orders Doctor BRYAN 1.2.840.114 [id number] 00:00:00 00:00:00 Only Unassigned, KAIT 350.1.13.10 [place] [facility] 4.2.7.2.686 [id number] 009 2020-06-30 2020-06-30 Orders Doctor BRYAN 1.2.840.114 [id number] Univers 00:00:00 00:00:00 Only Unassigned, KAIT 350.1.13.10 ity of [place] [facility] 4.2.7.2.686 [place] as [phone] [facility] [address] 2020-06-29 2020-06-29 Telephone Popeye Painter 1.2.840.114 [id number] Univers 00:00:00 00:00:00 , Libra Hurtado Mason 350.1.13.10 ity of [place] 4.2.7.2.[place] [phone] [facility] [address] 2020-06-28 2020-06-28 Travel 1.2.840.1 1.2.500.843 [id number] Methodi 00:00:00 00:00:[address] 3.430.2.7 0.2.7.3.698 Ho spita .3.603312 084.8 l .8 2020-06-23 2020-06-23 Outpatient Feliciano [facility] [id number] Univers 10:00:00 10:00:00 [facility] 2020-06-23 2020-06-23 Outpatient Feliciano [facility] [id number] Univers 09:30:00 09:30:00 [facility] 2020-06-22 2020-06-22 Travel 1.2.840.1 1.2.594.357 [id number] [id number] Methodi 00:00:00 00:00:[address] 3.430.2.7 0.2.7.3.698 Ho spita .3.773841 084.8 l .8 2020-06-18 2020-06-18 [facility] 1.2.840.1 [id number] [id number] Methodi 10:04:33 23:59:00 Encounter Konrad S. 52324.1.[address] 3.430.2.7 Hospit a .3.837537 l .8 2020-06-18 2020-06-18 [facility] 1.2.840.1 [id number] Methodi 08:44:19 10:03:00 Encounter Konrad S. 96247.1.[address] 3.430.2.7 Hospit a .3.646469 l .8 2020-06-17 2020-06-17 Travel 1.2.840.1 1.2.460.138 [id number] [id number] Methodi 00:00:00 00:00:[address] 3.430.2.7 0.2.7.3.698 Ho spita .3.712295 084.8 l .8 2020-06-17 2020-06-17 Telephone Jaycob 1.2.840.1 [id number] Methodi 00:00:00 00:00:00 nogho, 01893.1.[address] Tidoshia 3.430.2.7 Hospi ta .3.232107 l .8 2020-06-10 2020-06-15 [facility], 1.2.840.1 [id number] 4946 Methodi 14:36:45 00:44:39 Visit Konrad S. 97624.1.1 046 s t 3.430.2.7 Hospit a .3.703992 l .8 2020-06-11 2020-06-11 Orders Blancas, 1.2.840.1 [id number] 1592 Methodi 00:00:00 00:00:00 Only Rayo 82325.1.[address] 3.430.2.7 Hospit a .3.335812 l .8 2020-06-11 2020-06-11 Orders Blancas, 1.2.840.1 [id number] 7085 Methodi 00:00:00 00:00:00 Only Rayo 12597.1.[address] 3.430.2.7 Hospit a .3.895859 l .8 2020-06-10 2020-06-10 [facility], 1.2.840.1 [id number] 00474 Methodi 21:29:33 23:59:00 Encounter Konrad S. 23019.1.[address] 3.430.2.7 Hospit a .3.859738 l .8 2020-06-10 2020-06-10 [facility], 1.2.840.1 [id number] 15276 Methodi 21:28:44 21:28:44 Encounter Konrad S. 90165.1.[address] 3.430.2.7 Hospit a .3.679291 l .8 2020-06-10 2020-06-10 [facility], 1.2.840.1 [id number] 21901 Methodi 21:27:49 21:27:49 Encounter Konrad S. 25328.1.[address] 3.430.2.7 Hospit a .3.897961 l .8 2020-06-10 2020-06-10 Travel 1.2.840.1 1.2.792.933 9729 [id number] Methodi 00:00:00 00:00:[address] 3.430.2.7 0.2.7.3.698 Ho spita .3.074294 084.8 l .8 2020-06-08 2020-06-08 Travel 1.2.840.1 1.2.198.216 3147 [id number] Methodi 00:00:00 00:00:[address] 3.430.2.7 0.2.7.3.698 Ho spita .3.279750 084.8 l .8 2020-06-01 2020-06-01 Telephone Kayode [facility] 1.2.605.057 [id number] Univers 00:00:00 00:00:00 Geraldo Flaherty 350.1.13.10 ity of [place] Profess[place] [phone] Mt dicdc nal [address] [place] [address] 2020-05-25 2020-05-25 Office [facility] 1.2.840.114 [id number] Univers 14:27:03 15:53:37 Visit Geraldo Flaherty 350.1.13.10 ity [facility] 4.2.7.2.[place] Profess[place] [phone] Mt dicdc nal [address] [place] [address] 2020-05-25 2020-05-25 Outpatient R KAYODE [facility] [id number] Univers 15:00:00 15:00:00 GERALDO contreras [facility] 2020-05-21 2020-05-21 Outpatient R NOREEN [facility] [id number] Univers 14:15:00 14:15:00 DELMAR contreras [facility] 2020-05-21 2020-05-21 Ancillary Qiana Romeo [facility] 1.2.840.114 [id number] Univers 12:32:23 13:17:23 Visit Amie Vanegas 350.1.13.1 0 ity of [facility] 4.2.7.2.[place] [phone] [facility] [address] 2020-05-21 2020-05-21 Office [facility] 1.2.374.366 [id number] Univers 12:32:45 12:47:45 Visit Delmar ROJELIO 350.1.13.10 i ty of [facility] 4.2.7.2.[place] [phone] [facility] [address] 2020-05-21 2020-05-21 Orders Doctor BRYAN 1.2.840.114 [id number] Univers 00:00:00 00:00:00 Only Unassigned, KAIT 350.1.13.10 ity of [facility] 4.2.7.2.686 [place] [phone] [facility] [address] 2020-05-17 2020-05-17 Travel 1.2.840.1 1.2.691.831 [id number] [id number] Methodi 00:00:00 00:00:[address] 3.430.2.7 0.2.7.3.698 Ho spita .3.104589 084.8 l .8 2020-03-16 2020-03-16 [facility] 1.2.840.114 [id number] Univers 06:27:00 10:38:00 Encounter Jed Flaherty 350.1.13.10 ity of [place] 4[place]2.[place].2.[place] Surgical [phone] [facility] [address] 2020-03-16 2020-03-16 Orders Doctor BRYAN 1.2.840.114 [id number] Univers 00:00:00 00:00:00 Only UnassignedKAIT 350.1.13.10 ity of [facility] 4.2.7.2.686 [place] as [phone] [facility] [address] 2020-03-15 2020-03-15 [facility] 1.2.840.114 [id number] Univers 12:45:00 23:59:00 Encounter Jed Flaherty 350.1.13.10 ity of [place] 4.2.7.2.686 [facility] [phone] [facility] 8[address] 2020-03-15 2020-03-15 Flue Cleaner Sony, Adc Lab Main [facility] 1.2.8 40.114 [id number] Univers 13:22:26 13:37:26 Visit Jed Coppola 350.1.13.10 ity of [place] 4.2.7.2.686 [facility] Professio [phone] Mt dical [facility] [address] Building 2020-03-15 2020-03-15 Laboratory Only, Adc Test [facility] 1.2.840. 114 [id number] Univers 13:19:31 13:34:31 Only Jed Coppola 350.1.13.10 ity of [place] 4.2.7.2.686 [facility] [phone] [facility] [address] 2020-03-15 2020-03-15 Outpatient Feliciano [facility] [id number] [facility] 12:15:00 12:15:00 JED contreras [facility] 2020-03-08 2020-03-08 AppointANTON Belle PM&R [facility] [id number] [place] 08:30:00 08:30:00 t; Albina VILLAFUERTEaire ysici CHRISTO Leyva M.D. 2020-02-04 2020-02-04 Outpatient Feliciano [facility] [id number] [facility] 09:30:00 09:30:00 MANAV contreras [facility] 2020-01-29 2020-01-29 Outpatient MARCUS [facility] [id number] 782 [place] 00:00:00 00:00:00 KONRAD [address] 2020-01-29 2020-01-29 Outpatient MARCUS [facility] [id number] [address] [place] 00:00:00 00:00:00 KONRAD [address] 2020-01-25 2020-01-28 Inpatient HCAPM JESSICA [id number] [facility] 11:31:00 02:20:18 24 [facility] 2019-12-15 2019-12-15 Outpatient Feliciano MONTENEGRO [facility] [id number] Univers 11:00:00 11:00:[address] [facility] 2019-12-03 2019-12-03 Outpatient Feliciano HILL [facility] [id number] Univers 10:30:00 10:30:[address] [facility] 2019-11-05 2019-11-05 Outpatient [facility] [id number] [address] 05:21:00 12:39:00 SHARAN Vaughn [facility] l 2019-09-26 2019-10-21 Office Luisito Bay [facility] 1.2.840. 114 [id number] Univers 15:30:31 21:51:55 Visit Danielle King HEALTH 350.1.13.1 0 ity of CLINICS 4.2.7.2.686 [place] [phone] [address] 2019-10-12 2019-10-12 Outpatient [facility] PDPEXNR [facility] 00:00:00 00:00:00 [id number] 2019-10-07 2019-10-07 Outpatient [facility] [address] 09:00:00 23:59:00 [facility] 2019-09-26 2019-09-26 Outpatient Feliciano KING [facility] [id number] Univers 16:00:00 16:00:00 DANIELLE francisco javier [facility] 2019-09-09 2019-09-09 Outpatient MARCUS [facility] [id number] [address] [place] 00:00:00 00:00:00 KONRAD 274 Method i 2019-09-09 2019-09-09 Outpatient MARCUS [facility] [id number] 559 [place] 00:00:00 00:00:00 KONRAD 805 Method i 2019-09-09 2019-09-09 Outpatient MARCUS [facility] [id number] [address] [place] 00:00:00 00:00:00 KONRAD 277 Method i 2019-09-03 2019-09-03 Office [facility] 1.2.979.405 [id number] Univers 15:15:59 15:55:48 Visit Olman Hurtado [facility] 350.1.13.10 it y of Surgical 4.2.7.2.686 [place] Specialti [phone] Me dical es 198 [facility] 2019-09-03 2019-09-03 Outpatient Feliciano [facility] [id number] Univers 15:30:00 15:30:00 OLMAN contreras [facility] 2019-09-01 2019-09-01 Outpatient R [facility] [id number] Univers 13:45:00 13:45:00 OLMAN diane [facility] 2019-09-01 2019-09-01 Outpatient MARCUS [facility] [id number] [address] [place] 00:00:00 00:00:00 KONRAD 795 Method i 2019-09-01 2019-09-01 Outpatient MARCUS [facility] [id number] [address] [place] 00:00:00 00:00:00 KONRAD 698 Method i 2019-08-14 2019-08-14 Outpatient R [facility] [id number] Univers 13:33:10 23:59:00 OLMAN banegasfrancisco javier [facility] 2019-08-14 2019-08-14 [facility] [id number] Univers 13:33:00 23:59:00 Encounter Olman [place] [id number] ity of [place] 4.2.7.2.686 [facility] [id number] [facility] [address] 2019-08-11 2019-08-11 Orders Doctor BYRAN [id number] Univers 00:00:00 00:00:00 Only Unassigned, KAIT 350.1.13.10 ity of [place] [facility] 4.2.7.2.686 [place] [id number] [facility] [address] 2019-08-01 2019-08-01 Telephone [facility] 1.2.840.114 [id number] Univers 00:00:00 00:00:00 Olman Hurtado [facility] [id number] it y of Surgical 4.2.7.2.686 [place] as Specialti [phone] Me dical es 198 [facility] 2019-07-29 2019-07-29 Outpatient [facility] [id number] Univers 16:15:00 16:15:00 BAKARI ity of [facility] 2019-07-26 2019-07-26 Orders Doctor BRYAN 1.2.840.114 [id number] Univers 00:00:00 00:00:00 Only Unassigned, KAIT 350.1.13.10 ity of [facility] 4.2.7.2.686 [place] as [phone] [facility] [address] 2019-07-17 2019-07-17 Outpatient R ANAT [facility] [id number] Univers 07:41:46 23:59:00 JED ity of [facility] 2019-07-17 2019-07-17 [facility] 1.2.840.114 [id number] Univers 07:41:00 23:59:00 Encounter Jed Flaherty 350.1.13.10 ity [facility] [place] [phone] [facility] [address] [place] 2019-06-26 2019-06-26 Telephone [facility] 1.2.840.114 [id number] Univers 00:00:00 00:00:00 [facility] [id number] it y of Surgical 4.2.7.2.686 [place] [phone] Mt dical es 198 [facility] 2019-05-15 2019-05-15 Telephone [facility] 1.2.840.114 [id number] Univers 00:00:00 00:00:00 [facility] 350.1.13.10 it y of Surgical 4.2.7.2.686 [place] [phone] Mt dical es 198 [facility] 2019-05-05 2019-05-05 Telephone [facility] 1.2.840.114 [id number] Univers 00:00:00 00:00:00 Olman Hurtado [facility] 350.1.13.10 it y of Surgical 4.2.7.2.686 [place] [phone] Mt dical es 198 [facility] 2019-04-16 2019-04-16 Laboratory Pc, Adc Echo Room 1 - [facility] 1 .2.840.114 [id number] Univers 07:58:59 08:40:23 Only Greg Serrato Rolfe 350.1.13.10 ity of [place] [phone] Mt dical nal 059 [facility] 2019-04-16 2019-04-16 Outpatient R [facility] [id number] Univers 08:00:00 08:00:00 GREG banegasy o f [facility] 2019-04-09 2019-04-09 Office [facility] 1.2.840.114 [id number] Univers 09:48:56 10:42:21 Visit Greg Rolfe 350.1.13.10 ity of [place] [phone] Mt dical nal 059 [facility] 2019-04-07 2019-04-09 Office [facility] 1.2.813.612 [id number] Univers 14:00:40 10:20:20 Visit Olman Genesis Haileo 350.1.13.10 it y of Surgical 4.2.7.2.686 [place] [phone] Mt dical es 198 [facility] 2019-04-07 2019-04-07 Outpatient [facility] [id number] Univers 14:44:26 23:59:00 OLMAN ity of [facility] 2019-04-07 2019-04-07 Hospital [facility] 1.2.840.114 [id number] Univers 14:44:00 23:59:00 Encounter Olman L Haileo 350.1.13.10 ity of Surgical 4.2.7.2.686 [place] [phone] Mt dical es 809 [facility] 2019-04-07 2019-04-07 Orders Doctor BRYAN 1.2.840.114 [id number] Univers 00:00:00 00:00:00 Only Unassigned, KAIT 350.1.13.10 ity of [facility] [facility] 4.2.7.2.686 [place] as [phone] [address] 2019-04-07 2019-04-07 Telephone [facility] 1.2.840.114 [id number] Univers 00:00:00 00:00:00 [facility] 350.1.13.10 it y of Surgical 4.2.7.2.686 [place] [phone] Mt dical es 198 [facility] 2019-03-11 2019-03-11 Orders Doctor BRYAN 1.2.840.114 [id number] Univers 00:00:00 00:00:00 Only Unassigned, KAIT 350.1.13.10 ity of [place] [facility] 4.2.7.2.686 [place] as [phone] [facility] [address] [place] 2019-01-01 2019-01-01 Appointmen ANTON KEN UTP [id number] [place] 14:00:00 14:00:00 t; BREANA KEN M.D. Physici ZORAN, ans M.D. 2018-10-04 2018-10-04 Office [place] 1.2.840.[id number] [place] [address] 09:32:10 10:24:11 Visit Tianna AMBULATOR 350.1.13.21 [place] Shawna Y 0.2.7.2.686 of [phone] [facility] 800 e 2018-10-04 2018-10-04 Office CELE [place] 1.2.840.114 [id number] 09:32:10 10:24:11 Visit Tianna AMBULATOR 350.1.13.21 Shawn[place] Y 0.2.7.2.686 [phone] 800 2018-07-17 2018-07-17 Appointmen CIELO FOWLER UTP UTP [id number] [place] 11:00:00 11:00:00 t; Albina FOWLER M.D. [facility] 2018-04-03 2018-04-[address] [facility] [id number] [place] 00:00:00 00:00:00 Health 2018-03-12 2018-03-12 [facility] [id number] Common 13:30:00 13:30:00 t [facility] 2018-01-09 2018-01-[address] [facility] [id number] [place] 00:00:00 00:00:00 Health 2017-12-26 2017-12-[address] [facility] [id number] [place] 00:00:00 00:00:00 [facility] 2017-12-25 2017-12-[address] [facility] [id number] [place] 00:00:00 00:00:00 [facility] 2017-11-21 2017-11-[address] [facility] [id number] [place] 12:12:10 12:12:10 Health 2017-11-19 2017-11-19 [facility] [id number] Common 09:00:00 09:00:00 t Bone Bone and Spiri t and Joint [facility] - [facility] 2017-11-16 2017-11-[address] [facility] [id number] [place] 08:30:23 08:30:23 Health 2017-11-12 2017-11-12 [facility] [id number] Common 14:22:00 14:22:00 t Bone Bone and Spiri t and Joint [facility] - [facility] 2017-11-12 2017-11-[address] [facility] [id number] [place] 00:00:00 00:00:00 [facility] 2017-11-08 2017-11-[address] [facility] [id number] [place] 00:00:00 00:00:00 [facility] 2017-11-05 2017-11-05 [facility] [id number] Common 10:03:00 10:03:00 t Bone Bone and Spiri t and Joint [facility] - [facility] 2017-10-29 2017-10-29 Outpatient [facility] [id number] Common 08:00:00 08:00:00 t Bone Bone and Spiri t and Joint [facility] - [facility] 2017-10-11 2017-10-[address] [facility] [id number] [place] 09:34:54 09:34:54 Health 2017-10-10 2017-10-[address] [facility] [id number] [place] 00:00:00 00:00:00 [facility] 2017-10-03 2017-10-[address] [facility] [id number] [place] 00:00:00 00:00:00 [facility] 2017-09-28 2017-09-28 Outpatient [facility] [id number] [place] 06:43:36 06:43:36 Health 2017-09-28 2017-09-[address] [facility] [id number] [place] 00:00:00 00:00:00 [facility] 2017-09-28 2017-09-[address] [facility] [id number] [place] 00:00:00 00:00:00 [facility] 2017-09-26 2017-09-[address] [facility] [id number] [place] 13:42:42 13:42:42 [facility] 2017-09-26 2017-09-[address] [facility] [id number] [place] 00:00:00 00:00:00 [facility] 2017-09-21 2017-09-[address] [facility] [id number] [place] 00:00:00 00:00:00 [facility] 2017-09-19 2017-09-[address] [facility] [id number] [place] 14:50:01 14:50:01 [facility] 2017-09-19 2017-09-[address] [facility] [id number] [place] 13:16:35 13:16:35 [facility] 2017-09-12 2017-09-[address] [facility] [id number] [place] 00:00:00 00:00:00 [facility] 2017-08-24 2017-08-[address] [facility] [id number] [place] 09:22:38 09:22:38 [facility] 2017-07-27 2017-07-[address] [facility] [id number] [place] 10:35:47 10:35:47 [facility] 2017-07-05 2017-07-[address] [facility] [id number] [place] 12:15:23 12:15:23 [facility] 2017-07-03 2017-07-[address] [facility] [id number] [place] 00:00:00 00:00:00 [facility] 2017-05-23 2017-05-[address] [facility] [id number] [place] 13:13:44 13:13:44 [facility] 2017-05-02 2017-05-[address] [facility] [id number] [place] 00:00:00 00:00:00 [facility] 2017-04-25 2017-04-[address] [facility] [id number] [place] 09:01:53 09:01:53 [facility] 2017-04-17 2017-04-17 Outpatient [facility] [id number] [place] 06:05:00 06:05:00 [facility] 2017-04-17 2017-04-[address] [facility] [id number] [place] 00:00:00 00:00:00 [facility] 2017-04-16 2017-04-[address] [facility] [id number] [place] 00:00:00 00:00:00 [facility] 2017-04-13 2017-04-[address] [facility] [id number] [place] 09:12:04 09:12:04 [facility] 2017-04-03 2017-04-[address] [facility] [id number] [place] 00:00:00 00:00:00 [facility] 2017-03-27 2017-03-27 Outpatient [facility] [id number] [place] 06:15:00 06:15:00 [facility] 2017-03-27 2017-03-[address] [facility] [id number] [place] 00:00:00 00:00:00 [facility] 2017-03-19 2017-03-[address] [facility] [id number] [place] 13:22:16 13:22:16 [facility] 2017-03-19 2017-03-[address] [facility] [id number] [place] 00:00:00 00:00:00 [facility] 2017-03-12 2017-03-[address] [facility] [id number] [place] 13:45:55 13:45:55 [facility] 2017-03-09 2017-03-[address] [facility] [id number] [place] 00:00:00 00:00:00 [facility] 2017-03-08 2017-03-[address] [facility] [id number] [place] 16:03:22 16:03:22 [facility] 2017-03-08 2017-03-[address] [facility] [id number] [place] 14:45:05 14:45:05 [facility] 2017-02-23 2017-02-[address] [facility] [id number] [place] 10:41:02 10:41:02 [facility] 2017-02-23 2017-02-[address] [facility] [id number] [place] 08:11:53 08:11:53 [facility] 2017-02-23 2017-02-[address] [facility] [id number] [place] 07:53:43 07:53:43 [facility] 2017-02-23 2017-02-23 Outpatient [facility] [id number] [place] 00:00:00 00:00:00 [facility] 2017-02-08 2017-02-[address] [facility] [id number] [place] 12:32:00 12:32:00 [facility] 2017-01-24 2017-01-[address] [facility] [id number] [place] 00:00:00 00:00:00 [facility] 2017-01-23 2017-01-[address] [facility] [id number] [place] 12:16:30 12:16:30 [facility] 2017-01-22 2017-01-[address] [facility] [id number] [place] 11:30:20 11:30:20 [facility] 2017-01-15 2017-01-[address] [facility] [id number] [place] 00:00:00 00:00:00 [facility] 2017-01-09 2017-01-[address] [facility] [id number] [place] 09:09:26 09:09:26 [facility] 2017-01-04 2017-01-[address] [facility] [id number] [place] 14:36:02 14:36:02 [facility] 2017-01-02 2017-01-[address] [facility] [id number] [place] 08:36:10 08:36:10 [facility] 2016-12-27 2016-12-[address] [facility] [id number] [place] 11:33:15 11:33:15 [facility] 2016-12-22 2016-12-[address] [facility] [id number] [place] 09:02:45 09:02:45 [facility] 2016-12-11 2016-12-[address] [facility] [id number] [place] 09:01:19 09:01:19 [facility] 2016-12-11 2016-12-11 Inpatient [facility] [id number] [place] 14:16:44 00:00:00 [facility] 2016-12-07 2016-12-[address] [facility] [id number] [place] 00:00:00 00:00:00 [facility] 2016-12-06 2016-12-[address] [facility] [id number] [place] 14:40:31 14:40:31 [facility] 2016-12-04 2016-12-[address] [facility] [id number] [place] 10:31:01 10:31:01 [facility] 2016-11-27 2016-11-[address] [facility] [id number] [place] 00:00:00 00:00:00 [facility] 2016-11-20 2016-11-[address] [facility] [id number] [place] 00:00:00 00:00:00 [facility] 2016-11-20 2016-11-[address] [facility] [id number] [place] 00:00:00 00:00:00 [facility] 2016-11-17 2016-11-[address] [facility] [id number] [place] 00:00:00 00:00:00 [facility] 2016-10-12 2016-10-[address] [facility] [id number] [place] 00:00:00 00:00:00 [facility] 2016-10-10 2016-10-[address] [facility] [id number] [place] 00:00:00 00:00:00 Health 2016-10-10 2016-10-[address] [facility] [id number] [place] 00:00:00 00:00:00 Health 2016-10-10 2016-10-[address] [facility] [id number] [place] 00:00:00 00:00:00 Health 2016-09-15 2016-09-[address] [facility] [id number] [place] 00:00:00 00:00:00 [facility] 2016-08-30 2016-08-[address] [facility] [id number] [place] 09:44:27 09:44:27 Health Results Test Description Test Test Results Result Source Time Comments Comments MRI Spine 2020-03- EXAM: Spine Thoracic wo [facility] thoracic wo 05 contrast MRIDATE: contrast [id number] 14:45:00 03/26/2020 14:47 CSTINDICATION: -Mid back painCOMPARISON: X-ray of the thoracic spine 03/26/2020TECHNIQUE: Multiplanar multisequence images of the thoracic spine were obtainedwithout contrast administration.DISCUSSI ON:The height and the structure of the thoracic vertebral bodies arewell-maintained. No bone marrow signal abnormality.Lateralizin g to the right osteophyte disc complex at T3-T4 with subtle righthemicord flattening. No cord signal abnormality or spinal canal stenosis atthis level.The other levels examined are unremarkable.No foraminal narrowing or discrete nerve root impingement.The paraspinal soft tissues are unremarkable.IMPRESSION : Shallow right paracentral at T3-T4 deforming the right hemicordwith no canal stenosis or compressive myelopathy--Read by: Isamar Pittman MDDictated Date/time: 03/26/20 16:05Electronically Signed by: Isamar Pittman MD 03/26/2115:11FINAL REPORT XRAY Spine 2020-03- EXAM: XR THORACIC SPINE [facility] Thoracic 4+ 05 2 VIEWSDATE: 03/26/2020 views [id number] 13:45:00 13:31 CSTINDICATION: - M54.9 Dorsalgia, unspecifiedCOMPARISON: None.TECHNIQUE: AP and lateral radiographs of the thoracic spineFINDINGS: Vertebral body heights, disc heights and alignment are preserved. Nodegenerative disk disease or osteoarthritis.Incident al note of ACDF spanning the lower cervical levels.No soft tissue abnormality is identified.IMPRESSION: No acute abnormality. Multilevel mild degenerative changes.--Read by: Diane Rose MDDictated Date/time: 03/26/20 19:27Electronically Signed by: Diane Rose MD 03/26/2118:28FINAL REPORT CT Spine lumbar 2020-03- EXAM: CT LUMBAR SPINE [facility] wo contrast 05 WITHOUT CONTRASTDATE: 12612 13:31:00 03/26/2020 13:35 CSTINDICATION: M54.5 Low back [...] status post hysterectomy. The soft tissues areotherwise unremarkable.IMPRESSION : Transitional lumbosacral anatomy with a transitional vertebralsegment [...] thesubarticular zone.--This report was dictated by a Stem Cutter/Fellow/Physici an Well Drill Operator Helper Cable Tool. Ihave personallyreviewed the images as well as the interpretation and agree with the findings.Read by: Linus Argueta MD Resident/Fellow/Physici anAssistant: Linus Argueta MDDictated Date/time: 03/26/20 14:06Electronically Signed by: Vinh Ohara MD 03/29/2112:46FINAL REPORT MRI Spine thoracic wo contrast [id number] 2020-03-26 13:30:00 Test Item Value Reference Range Interpretation Comme nts Spine thoracic wo contrast MRI (test code = Cancel Reason: Duplicat e Order Spine thoracic wo contrast MRI) [facility] (NON-REPORTABLE)2020-03-16 16:12:46These images do not require a Radiology diagnostic report.[facility] 2 [id number] 21:13:01 No acute cardiopulmonary process is seen.PROCEDURE: XR CHEST 2 VW 03/15/2020 1:28 PM CLINICAL INDICATION: Acquired hallux valgus of right foot COMPARISON: None TECHNIQUE: PA and lateral views of the chest FINDINGS: The lungs are clear. There is no pleural effusion. ?No pneumothorax. The cardiac size is within normal limits. Surgical clips overlying anteriorchest wall. No aggressive osseous lesion. Cervicothoracic anterior spinal fusionpartially visualized. [facility], Radiant Results Inft User - 03/15/2020 3:14 PM CSTPROCEDURE: XR CHEST 2 VW 03/15/2020 1:28 PMCLINICAL INDICATION: Acquired hallux valgus ofright foot COMPARISON: NoneTECHNIQUE: PA and lateral views of the chestFINDINGS:The lungs are clear.There is no pleural effusion. No pneumothorax. The cardiac size is within normal limits. Surgical clips overlying anteriorchest wall.No aggressive osseous lesion. Cervicothoracic anterior spinal fusionpartially visualized.IMPRESSIONNo acute cardiopulmonary process is seen. [facility] ArlingtonMR FOOT LEFT WO [id number] 14:02:55 HISTORY: ?Pain left foot pain. TECHNIQUE: [...] Otherwise normal MRI study of left foot. [facility], Radiant Results Inft User - 07/17/2019 9:04 AM CDTHISTORY: Pain left foot pain. TECHNIQUE: MR imaging of [...] head of the first metatarsal bone.Rest of thetarsal and metatarsal bones show normal findings.Visualized portions of the plantar fascia and plantar plate appear intact.No abnormality is appreciated in the plantar group of muscles, plantartendons as well as dorsal extensor tendons. Tibialis posterior tendon,peroneal longus and peroneal brevis tendon are visualized and appearnormal.No definite MRI findings of interdigital Ferreira's neuroma visualiz ed.Visualized portions of the ankle including deltoid ligament complex andATFL appear intact.CONCLUSIONS:1. 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 Otherwise normal MRI study of left foot.[facility] [id number] 15:56:00Surgical Pathology Report Case: [id number] Authorizing Provider: Mai Nuñez MD Collected: 08/14/2018 1452 Ordering Location: [facility] Endoscopy Received: 08/15/2018 0833 Services Pathologist: [...] WARTHIN-STARRY STAINC. TERMINAL ILEUM, BIOPSY: - SMALL BOWELMUCOSA WITH NO SIGNIFICANT PATHOLOGIC CHANGES - NEGATIVE FOR VILLOUS BLUNTING - NEGATIVE FOR SIGNIFICANT INCREASE OF INTRAEPITHELIAL LYMPHOCYTESD. COLON, RANDOM, BIOPSY: - FOCAL MILD INCREASE IN INTRAEPITHELIAL LYMPHOCYTES (SEE COMMENT) Signing Pathologist Direct Phone Line: [phone] by Elsy Collier MD on 08/19/2018 at 3:56 PMA. The finding of increased intraepithelial lymphocytes alone is non-specific and may be associated a wide range of conditions, including celiac disease,bacterial overgrowth, nonsteroidal antiinflammatory drug damage, reaction to Helicobacter pylori infection, tropical sprue, and chronic inflammatory bowel disease. Clinical correlation is recommended. D. The finding of focal mildly increased intraepithelial lymphocytes in colonic mucosa is also non-specfic. The possible etiology includes drug, infectious, and automimmune disease including lymphocyticcolitis. Clinical correlation is recommended. 80238 X 4, 15310Mxcxiqcexu abdominal pain, LLQ abdominal pain A. Duodenum biopsy. B. Stomach biopsy. C. Biopsy, terminal ileum. D. Colon biopsy, randomPartA. Received in formalin labeled with the patient's name, accession number and "duodenum" are multiple guerrero soft tissue fragments ranging from 0.2-0.4 cm, which are submitted in toto in A1.Part B. Received in formalin labeled with the patient's name, accession number and "stomach" are four irregular tansoft tissue fragments ranging from 0.2-0.5 cm, which are submitted in toto in B1. Part C. Received in formalin labeled with the patient's name, accession number and "biopsy, terminal ileum" is a 0.4 cmtan soft tissue fragment, which is submitted in toto in C1.Part D. Received in formalin labeled withthe patient's name, accession number and "colon biopsy, [...] evaluated Immunohistochemistry technical testing was performed at [facility], Pathology Laboratory where it was developed and its performance characteristics were determined. It has not been cleared or approved by the U.S. Food and Drug Administration. The FDA has det ermined that such clearance or approval is not necessary. The test is used for clinical purposes. Itshould not be regarded as investigational or for research. This laboratory is certified under the Clinical Laboratory Improvement Amendments of 1988 (CLIA-88) as qualified to perform high complexity clinical laboratory testing.RAD, ABDOMEN/KUB, 1 VIEW [id number] 16:12:00Reason for Exam:->epigastric abdominal painReason for Exam:->constipation, unspecified constipation typeFINAL REPORT Exam: Abdominal radiograph History: Constipation Comparison: None.Findings: Nonobstructive bowel gas pattern. Mild amount retained stool. Multiple surgical clips. Impression: No acute osseous abnormality Mild amount of retained stool Signed: Luisito Shafer MDReport Verified Date/Time: 04/16/2018 16:12:35
[2022-01-06] MEDS ORDERED: HYDROCODONE/APAP 10/325 TAB ONE (22:12)
--- NOTE | 2022-01-06 22:14 | ER ---
Nurse's Notes [facility] Name: Mildred Caldwell Age: 46 yrs Sex: Female : 1975 Arrival Date: 01/06/2022 Time: 20:59 Bed DIS2 Private MD: Diagnosis: Pain in hand and fingers Presentation: 01/06 21:30 Chief complaint: Patient states: Jammed left pinky finger "When I was swimming as a ld1 teenager, sometimes it gets stuck and I have a knot in my pinky. It is hurting, my hand is cramping up and my palm hurts, radiates up to my left elbow.". Coronavirus screen: At this time, the client does not indicate any symptoms associated with coronavirus-19. Ebola Screen: No symptoms or risks identified at this time. Initial Sepsis Screen: Does the patient meet any 2 criteria? No. Patient's initial sepsis screen is negative. Does the patient have a suspected source of infection? No. Patient's initial sepsis screen is negative. Risk Assessment: Do you want to hurt yourself or someone else? Patient reports no desire to harm self or others. Onset of symptoms was January 06, 2022. 21:30 Method Of Arrival: Ambulatory ld1 21:30 Acuity: JENNIFER 4 ld1 Triage Assessment: 21:33 General: Appears in no apparent distress. comfortable, Behavior is calm, cooperative, ld1 appropriate for age. Pain: Complains of pain in left hand Pain does not radiate. Pain currently is 10 out of 10 on a pain scale. Quality of pain is described as sharp, shooting, throbbing. EENT: No signs and/or symptoms were reported regarding the EENT system. Neuro: Level of Consciousness is awake, alert, obeys commands, Oriented to person, place, time, situation. Cardiovascular: Capillary refill < 3 seconds Patient's skin is warm and dry. Respiratory: Airway is patent Respiratory effort is even, unlabored. GI: Abdomen is flat, non-distended. : No signs and/or symptoms were reported regarding the genitourinary system. Derm: No signs and/or symptoms reported regarding the dermatologic system. Musculoskeletal: Reports pain in left hand. 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 - Social history:: Smoking status: Patient denies any tobacco usage or history of. Patient/guardian denies using alcohol. Screenin:25 Abuse screen: Denies threats or abuse. Nutritional screening: No deficits noted. bb Tuberculosis screening: No symptoms or risk factors identified. Fall Risk None identified. Assessment: 22:25 General: Appears in no apparent distress. uncomfortable, Behavior is cooperative, bb Reports pain to left pinky finger. Pain: Complains of pain in left pinky finger. Neuro: Level of Consciousness is awake, alert, obeys commands, Oriented to person, place, time, situation. Cardiovascular: Capillary refill < 3 seconds Patient's skin is warm and dry. Respiratory: Airway is patent Respiratory effort is even, unlabored, Respiratory pattern is regular. GI: No signs and/or symptoms were reported involving the gastrointestinal system. Derm: Skin is pink, warm \\T\\ dry. Musculoskeletal: Circulation, motion, and sensation intact. Capillary refill < 3 seconds, Swelling present in left pinky finger Reports pain in left pinky finger. Vital Signs: 21:30 BP 137 / 99; Pulse 76; Resp 18; Temp 98.4(TE); Pulse Ox 100% on R/A; Weight 68.04 kg; ld1 Height 5 ft. 6 in. (167.64 cm); Pain 10/10; 21:30 Body Mass Index 24.21 (68.04 kg, 167.64 cm) ld1 ED Course: 20:59 Patient arrived in ED. ja2 21:33 Triage completed. ld1 21:33 Arm band placed on right wrist. ld1 21:48 Shahida Weston MD is Attending Physician. sd2 21:50 [facility] jl9 21:50 Shahida Weston MD is Attending Physician. jl9 22:13 Arnulfo Rivas MD is Referral Physician. jl9 22:25 Patient has correct armband on for positive identification. bb 22:25 No provider procedures requiring assistance completed. Patient did not have IV access bb during this emergency room visit. Administered Medications: 21:55 CANCELLED (dff): Acetaminophen 1000 mg PO once jl9 22:13 Drug: [place] (HYDROcodone-acetaminophen) 10 mg-325 mg 1 tabs Route: PO; bb Medication: 22:25 VIS not applicable for this client. bb Outcome: : Discharge ordered by . [email or web address] : Discharged to home ambulatory. bb : Condition: stable :25 Discharge instructions given to patient, Instructed on discharge instructions, follow up and referral plans. medication usage, Demonstrated understanding of instructions, follow-up care, medications, Prescriptions given X 1. 22:27 Patient left the ED. bb Signatures: Catherine Haile RN RN Casandra Perdomo RN RN ld1 Elise Justice John jl9 Shahida Weston MD MD sd2
--- NOTE | 2022-01-06 22:14 | EDPHYS ---
Physician Documentation [facility] Name: Mildred Caldwell Age: 46 yrs Sex: Female : 1975 Arrival Date: 01/06/2022 Time: 20:59 Bed DIS2 Private MD: ED Physician Shahida Weston HPI: 01/06 21:58 This 46 yrs old Female presents to ER via Ambulatory with complaints of left jl9 pinky pain. Patient denies any recent trauma and reports that she sees Dr. Montoya for the issues that has been chronic. Patient here for pain management only. . 21:58 Onset: The symptoms/episode began/occurred 3 year(s) ago. The patient has experienced jl9 similar episodes in the past. 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 - Social history:: Smoking status: Patient denies any tobacco usage or history of. Patient/guardian denies using alcohol. ROS: 21:58 Constitutional: Negative for fever, chills, and weight loss, Eyes: Negative for injury, jl9 pain, redness, and discharge, ENT: Negative for injury, pain, and discharge, Neck: Negative for injury, pain, and swelling, Cardiovascular: Negative for chest pain, palpitations, and edema, Respiratory: Negative for shortness of breath, cough, wheezing, and pleuritic chest pain, Abdomen/GI: Negative for abdominal pain, nausea, vomiting, diarrhea, and constipation, Back: Negative for injury and pain. 21:58 Skin: Negative for injury, rash, and discoloration, Neuro: Negative for headache, weakness, numbness, tingling, and seizure, Psych: Negative for depression, anxiety, suicide ideation, homicidal ideation, and hallucinations, Allergy/Immunology: Negative for hives, rash, and allergies, Endocrine: Negative for neck swelling, polydipsia, polyuria, polyphagia, and marked weight changes, Hematologic/Lymphatic: Negative for swollen nodes, abnormal bleeding, and unusual bruising. 21:58 MS/extremity: Positive for Left pinky pain. No trauma. . Exam: 21:59 Constitutional: This is a well developed, well nourished patient who is awake, alert, jl9 and in no acute distress. Head/Face: Normocephalic, atraumatic. Eyes: Pupils equal round and reactive to light, extra-ocular motions intact. Lids and lashes normal. Conjunctiva and sclera are non-icteric and not injected. Cornea within normal limits. Periorbital areas with no swelling, redness, or edema. ENT: Mucous membranes moist. Neck: Trachea midline, no thyromegaly or masses palpated, and no cervical lymphadenopathy. Supple, full range of motion without nuchal rigidity, or vertebral point tenderness. No Meningismus. Chest/axilla: Normal chest wall appearance and motion. Nontender with no deformity. No lesions are appreciated. Cardiovascular: Regular rate and rhythm with a normal S1 and S2. No gallops, murmurs, or rubs. Normal PMI, no JVD. No pulse deficits. Respiratory: Lungs have equal breath sounds bilaterally, clear to auscultation and percussion. No rales, rhonchi or wheezes noted. No increased work of breathing, no retractions or nasal flaring. Abdomen/GI: Soft, non-tender, with normal bowel sounds. No distension or tympany. No guarding or rebound. No evidence of tenderness throughout. Back: No spinal tenderness. No costovertebral tenderness. Full range of motion. Skin: Warm, dry with normal turgor. Normal color with no rashes, no lesions, and no evidence of cellulitis. MS/ Extremity: Pulses equal, no cyanosis. Neurovascular intact. Full, normal range of motion. Neuro: Awake and alert, GCS 15, oriented to person, place, time, and situation. Cranial nerves II-XII grossly intact. Motor strength 5/5 in all extremities. Sensory grossly intact. Cerebellar exam normal. Normal gait. Psych: Awake, alert, with orientation to person, place and time. Behavior, mood, and affect are within normal limits. Vital Signs: 21:30 BP 137 / 99; Pulse 76; Resp 18; Temp 98.4(TE); Pulse Ox 100% on R/A; Weight 68.04 kg; ld1 Height 5 ft. 6 in. (167.64 cm); Pain 10/10; 21:30 Body Mass Index 24.21 (68.04 kg, 167.64 cm) ld1 MDM: 21:50 Patient medically screened. jl9 21:59 Data reviewed: vital signs, nurses notes. Counseling: I had a detailed discussion with jl9 the patient and/or guardian regarding: the historical points, exam findings, and any diagnostic results supporting the discharge/admit diagnosis, the need for outpatient follow up, a orthopedic surgeon, to return to the emergency department if symptoms worsen or persist or if there are any questions or concerns that arise at home. Response to treatment: the patient's symptoms have markedly improved after treatment. ED course: Patient declines xray and agrees to follow up with Dr. Cortez since she sees him regularly. . Administered Medications: 21:55 CANCELLED (dff): Acetaminophen 1000 mg PO once jl9 22:13 Drug: [place] (HYDROcodone-acetaminophen) 10 mg-325 mg 1 tabs Route: PO; bb Disposition: 01/07 06:11 STAFF ATTESTATION STATEMENT: I was immediately available onsite in the emergency sd2 department for consultation in the care of this patient. I did not see or examine this patient. Shahida Weston MD. Disposition Summary: 01/06/22 22:13 Discharge Ordered Location: Home jl9 Condition: Stable jl9 Diagnosis - Pain in hand and fingers jl9 Followup: jl9 - With: Arnulfo Montoya MD - When: 1 - 2 days - Reason: Recheck today's complaints, Continuance of care, Re-evaluation by your physician Discharge Instructions: - Discharge Summary Sheet jl9 - Finger Sprain, Adult, [id number] jl9 Forms: - Medication Reconciliation Form jl9 - Thank You Letter jl9 - Antibiotic Education jl9 - Prescription Opioid Use jl9 Prescriptions: - Tramadol 50 mg Oral Tablet - take 1 tablet by ORAL route every 8 hours as needed; 12 tablet; Refills: 0, jl9 Product Selection Permitted Signatures: Dispatcher [employer] EDMS Catherine Haile RN RN bb Casandra Piedra RN RN ld1 Darrel Urbano jl9 Shahida Weston MD MD sd2 Corrections: (The following items were deleted from the chart) 11/18 21:55 21:52 Acetaminophen 1000 mg PO once ordered. jl9 jl9 22:25 21:53 Hand Left 3 View+RAD.RAD.BRZ ordered. EDMS EDMS
[2022-01-06 23:09] VITALS: BP 137/99; TEMP 98.4; O2SAT 100
== END 2022-01-06 22:27 | disposition home or self-care (01) ==
LOC: ER 20:52
DX: M79.642 Pain in left hand (principal); M79.645 Pain in left finger(s)
CPT/HCPCS: 99283

== ENCOUNTER 2022-07-23 12:12 | Emergency (ER) | payer OTHER ==
--- OUTSIDE RECORDS SUMMARY | 2022-07-23 12:19 | XMS REPORT | Continuity of Care Document ---
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 [facility] fluorouraci 2020-0 Yes [id number] Apply to [facility] l (EFUDEX) 8-07 area(s) at ity of 5 % cream 00:00: bedtime. [facility] fluorouraci 2020-0 Yes [id number] Apply to [facility] l (EFUDEX) 8-07 area(s) at ity of 5 % cream 00:00: bedtime. [facility] fluorouraci 2020-0 Yes [id number] Apply to Univers l (EFUDEX) 8-07 area(s) at ity of 5 % cream 00:00: [facility]time. [facility] fluorouraci 2020-0 Yes [id number] Apply to Univers l (EFUDEX) 8-07 area(s) at ity of 5 % cream 00:00: bedtime. [facility] fluorouraci 2020-0 Yes [id number] Apply to Univers l (EFUDEX) 8-07 area(s) at ity of 5 % cream 00:00: bedtime. [facility] fluorouraci 2020-0 Yes [id number] Apply to [facility] l (EFUDEX) 8-07 area(s) at [facility] 5 % cream 00:00[place] [facility] fluor[facility]aci 2020-0 Yes [id number] Apply to [facility] l (EFUDEX) 8-07 area(s) at ity of 5 % cream 00:00: [facility]time. [facility] fluorouraci 2020-0 Yes [id number] Apply to Univers l (EFUDEX) 8-07 area(s) at ity of 5 % cream 00:00: [facility]time. [facility] fluorouraci 2020-0 Yes [id number] Apply to [facility] l (EFUDEX) 8-07 area(s) at ity of 5 % cream 00:00: bedtime. [facility] fluorouraci 2020-0 Yes [id number] Apply to Univers l (EFUDEX) 8-07 area(s) at ity of 5 % cream 00:00: [facility]time. [facility] fluorouraci 2020-0 Yes [id number] Apply to Univers l (EFUDEX) 8-07 area(s) at ity of 5 % cream 00:00: bedtime. [facility] fluorouraci 2020-0 Yes [id number] Apply to Univers l (EFUDEX) 8-07 area(s) at ity of 5 % cream 00:00: bedtime. [facility] fluorouraci 2020-0 Yes [id number] Apply to Univers l (EFUDEX) 8-07 area(s) at ity of 5 % cream 00:00: bedtime. [facility] fluorouraci 2020-0 Yes [id number] Apply to [facility] l (EFUDEX) 8-07 area(s) at ity of 5 % cream 00:00: bedtime. [facility] fluorouraci 2020-0 Yes [id number] Apply to Univers l (EFUDEX) 8-07 area(s) at ity of 5 % cream 00:00: bedtime. [facility] fluorouraci 2020-0 Yes [id number] Apply to [facility] l (EFUDEX) 8-07 area(s) at ity of 5 % cream 00:00: [place]. [place] [facility] fluorouraci 2020-0 Yes [id number] Apply to [facility] l (EFUDEX) 8-07 area(s) at ity of 5 % cream 00:00: [place]. [place] [facility] fluorouraci 2020-0 Yes [id number] Apply to [facility] l (EFUDEX) 8-07 area(s) at [facility]y of 5 % cream 00:00: [place]. [place] [facility] fluorouraci 2020-0 Yes [id number] Apply to [facility] l (EFUDEX) 8-07 area(s) at ity of 5 % cream 00:00: [place]. [place] [facility] fluorouraci 2020-0 Yes [id number] Apply to [facility] l (EFUDEX) 8-07 area(s) at ity of 5 % cream 00:00: [facility]time. [facility] fluorouraci 2020-0 Yes [id number] Apply to Univers l (EFUDEX) 8-07 area(s) at ity of 5 % cream 00:00: bedtime. [facility] fluorouraci 2020-0 Yes [id number] Apply to Univers l (EFUDEX) 8-07 area(s) at ity of 5 % cream 00:00: bedtime. [facility] fluorouraci 2020-0 Yes [id number] Apply to Univers l (EFUDEX) 8-07 area(s) at ity of 5 % cream 00:00: bedtime. [facility] fluorouraci 2020-0 Yes [id number] Apply to [facility] l (EFUDEX) 8-07 area(s) at ity of 5 % cream 00:00: [place] [facility] fluorouraci 2020-0 Yes [id number] Apply to [facility] l (EFUDEX) 8-07 area(s) at ity of 5 % cream 00:00: [place]. [place] [facility] fluorouraci 2020-0 Yes [id number] Apply to [facility] l (EFUDEX) 8-07 area(s) at ity of 5 % cream 00:00: [place] [facility] fluorouraci 2020-0 Yes [id number] Apply to Univers l (EFUDEX) 8-07 area(s) at ity of 5 % cream 00:00: bedtime. [place] [address] [facility] fluorouraci 2020-0 Yes [id number] Apply to Univers l (EFUDEX) 8-07 area(s) at ity of 5 % cream 00:00: bedtime. [place] [address] [facility] PROAIR HFA 2020-0 Yes INHALE [...] l EVERY FOUR Branch HOURS NEEDED. lipase-prot 2019- Yes [id number]{ Q.70798480 Take [facility] 6-26 lipase} [id number] [facility]000 [facility] (CREON) 16:25: 3D units of [place] 36,000-114, [address] 000- mouth 3 180,000 (three) unit CpDR times capsule daily. metoclopram 20190 Yes 10mg Q.5D Take [address] [facility] HCl 6-26 by mouth 2 [facility] (REGLAN) 10 16:25: (two) Medic al MG tablet 39 times Center daily. lipase-prot Yes [id number]{ Q.[id number] Take [facility] 6-26 lipase} [id number] [facility],000 [facility] (CREON) 16:25: 3D units of [place] [place] 36,000-114, [address] 000- mouth 3 180,000 (three) unit CpDR times capsule daily. metoclopram 0 Yes 10mg Q.5D Take [address] [facility] HCl 6-26 by mouth [facility] (REGLAN) 10 16:25: (two) Medic al MG tablet 39 times Center daily. lipase-prot Yes [id number]{ Q.66239221 Take [facility] 6-26 lipase} [id number] [facility],000 [facility] (CREON) 16:25: 3D units of [place] [place] 36,000-114, [address] 000- mouth 3 180,000 (three) unit CpDR times capsule daily. metoclopram 20190 Yes 10mg Q.5D Take [address] [facility] HCl 6-26 by mouth 2 [facility] (REGLAN) 10 16:25: (two) Medic al MG tablet 39 times Center daily. lipase-prot 0 Yes [id number]{ Q.80202354 Take [facility] 6-26 lipase} [id number] [facility],000 [facility] (CREON) 16:25: 3D units of [place] [place] 36,000-114, [address] 000- mouth 3 180,000 (three) unit CpDR times capsule daily. metoclopram 2019-0 Yes 10mg Q.5D Take [address] [facility] HCl 6-26 by mouth [facility] (REGLAN) 10 16:25: (two) Medic al MG tablet 39 times Center daily. lipase-prot 2019-0 Yes [id number]{ Q.25163114 Take [facility] 6-26 lipase} [id number] [facility],000 [facility] (CREON) 16:25: 3D units of [place] [place] 36,000-114, [address] 000- mouth 3 180,000 (three) unit CpDR times capsule daily. metoclopram 2019-0 Yes 10mg Q.5D Take [address] [facility] HCl 6-26 by mouth [facility] (REGLAN) 10 16:25: (two) Medic al MG tablet 39 times Center daily. lipase-prot Yes [id number]{ Q.37010439 Take [facility] 6-26 lipase} [id number] [facility],000 [facility] (CREON) 16:25: 3D units of [place] [place] 36,000-114, [address] 000- mouth 3 180,000 (three) unit CpDR times capsule daily. metoclopram 20190 Yes 10mg Q.5D Take [address] [facility] HCl 6-26 by mouth 2 [facility] (REGLAN) 10 16:25: (two) Medic al MG tablet 39 times Center daily. lipase-prot 0 Yes [id number]{ Q.98633452 Take [facility] 6-26 lipase} [id number] [facility],000 [facility] (CREON) 16:25: 3D units of [place] [place] 36,000-114, [address] 000- mouth 3 180,000 (three) unit CpDR times capsule daily. metoclopram 2019-0 Yes 10mg Q.5D Take [address] [facility] HCl 6-26 by mouth [facility] (REGLAN) 10 16:25: (two) Medic al MG tablet 39 times Center daily. lipase-prot 20190 Yes [id number]{ Q.65680868 Take [facility] 6-26 lipase} [id number] [facility],000 [facility] (CREON) 16:25: 3D units of [place] [place] 36,000-114, [address] 000- mouth 3 180,000 (three) unit CpDR times capsule daily. metoclopram 2019-0 Yes 10mg Q.5D Take [address] [facility] HCl 6-26 by mouth [facility] (REGLAN) 10 16:25: (two) Medic al MG tablet 39 times Center daily. lipase-prot 20190 Yes [id number]{ Q.93513606 Take [facility] 6-26 lipase} [id number] [facility],000 [facility] (CREON) 16:25: 3D units of [place] [place] 36,000-114, [address] 000- mouth 3 180,000 (three) unit CpDR times capsule daily. metoclopram 20190 Yes 10mg Q.5D Take [address] [facility] HCl 6-26 by mouth [facility] (REGLAN) 10 16:25: (two) Medic al MG tablet 39 times Center daily. lipase-prot Yes [id number]{ Q.77104196 Take [facility] 6-26 lipase} [id number] [facility],000 [facility] (CREON) 16:25: 3D units of [place] [place] 36,000-114, [address] 000- mouth 3 180,000 (three) unit CpDR times capsule daily. metoclopram 20190 Yes 10mg Q.5D Take [address] [facility] HCl 6-26 by mouth [facility] (REGLAN) 10 16:25: (two) Medic al MG tablet 39 times Center daily. lipase-prot 0 Yes [id number]{ Q.56484204 Take [facility] 6-26 lipase} [id number] [facility],000 [facility] (CREON) 16:25: 3D units of [place] [place] 36,000-114, [address] 000- mouth 3 180,000 (three) unit CpDR times capsule daily. metoclopram 20190 Yes 10mg Q.5D Take [address] [facility] HCl 6-26 by mouth [facility] (REGLAN) 10 16:25: (two) Medic al MG tablet 39 times Center daily. Na 2019-0 Yes [id number] [SUPREP] [facility] or Sulfate-K 2-26 Take as [facility] Sulfate-Mg 00:00: directed. of Sulf 00 Medicin (SUPREP e BOWEL PREP KIT) 17.5-3.13-1 .6 GM/177ML SOLN Plecanatide Yes [id number] 3mg Take 3 mg Beny (TRULANCE) 04-16 by mouth [facility]le ge 3 MG TABS 00:00: daily. of 00 Medicin e metoclopram Yes [id number] 10mg Take 1 Tab [facility] [place] pedro 04-16 by mouth [place] [facility] 10 00:00: two times o f MG tablet 00 daily. Medicin e Pancrelipas Yes 2{capsu Take 2 B aylor e, 04-16 le} Caps by [place] Lip-Prot-Am 00:00: mouth 3 of yl, (CREON) 00 times Medicin 84284 units daily e CPEP (with meals). Na 2022- No [id number] [SUPREP] Lipan giuliana Sulfate-K 04-16 Take as [facility] Sulfate-Mg 00:00: 00:00 directed. o f Sulf 00 :00 Medicin (SUPREP e BOWEL PREP KIT) 17.5-3.13-1 .6 GM/177ML SOLN Plecanatide 2022- No [id number] 3mg Take 3 mg Beny (TRULANCE) 04-16-04 by mouth Terrance ege 3 MG TABS 00:00: 00:00 daily. of 00 :00 Medicin e metoclopram 2022- No [id number] 10mg Take 1 Tab [facility] [place] pedro 04-16- by mouth [place] ([facility] 10 00:00: 00:00 two times of MG tablet 00 :00 daily. Medicin e Pancrelipas 202- No 2{capsu Take 2 [facility] [place] e, - 04-04 le} Caps by [place] Lip-Prot-Am 00:00: 00:00 mouth 3 of yl, (CREON) 00 :00 times Medicin 61177 units daily e CPEP (with meals). polyethylen Yes Abdominal Add H arris e glycol 8-01 bloating mirian [facility] (GOLYTELY) 00:00: drinking 236-22.74-6 00 water to .74 -5.86 the fill gram oral michael (4 solution liters) and shake. Drink as directed by your doctor.. polyethylen 2017-0 Yes Abdominal Add H arris e glycol - bloating mirian [facility] (GOLYTELY) 00:00: drinking 236-22.74-6 00 water to .74 -5.86 the fill gram oral michael (4 solution liters) and shake. Drink as directed by your doctor.. polyethylen 2017-0 Yes Abdominal Add H arris e glycol - bloating mirian [facility] (GOLYTELY) 00:00: drinking 236-22.74-6 00 water to .74 -5.86 the fill gram oral michael (4 solution liters) and shake. Drink as directed by your doctor.. polyethylen 2017-0 Yes Abdominal Add H arris e glycol - bloating mirian [facility] (GOLYTELY) 00:00: drinking 236-22.74-6 00 water to .74 -5.86 the fill gram oral michael (4 solution liters) and shake. Drink as directed by your doctor.. venlafaxine 2017-0 Yes Mood swings 37.5mg QD Take 1 [facility] (EFFEXOR 7-06 capsule by Healt [facility] XR) 37.5 mg 00:00: mouth extended 00 daily. release capsule venlafaxine 2017-0 Yes Mood swings 37.5mg QD Take 1 [facility] (EFFEXOR 7-06 capsule by Healt h XR) 37.5 mg 00:00: mouth extended 00 daily. release capsule venlafaxine 2017-0 Yes Mood swings 37.5mg QD Take 1 [facility] (EFFEXOR 7-06 capsule by Healt h XR) 37.5 mg 00:00: mouth extended 00 daily. release capsule venlafaxine 2017-0 Yes Mood swings 37.5mg QD Take 1 [facility] (EFFEXOR 7-06 capsule by Healt h XR) 37.5 mg 00:00: mouth extended 00 daily. release capsule acetaminoph Yes BRCA gene 1{tbl} Take 1 [facility] en-codeine 2-27 positive tablet by [employer] (TYLENOL/CO 00:00: mouth DEINE #3) 00 every 4 300-30 mg hours as per tablet needed for Pain. traMADol 2017- Yes BRCA gene 50mg Take 1 Sagastume [...] 1 [place] en-codeine 2-27 positive tablet by [facility] (TYLENOL/CO 00:00: mouth DEINE #3) 00 [...] 6 hours as needed for Pain. gabapentin 2017- Yes BRCA gene 100mg Take 1 [facility] (NEURONTIN) 2-06 mutation capsule by Health 100 mg 00:00: positive mouth 3 capsule 00 times daily. acetaminoph Yes BRCA gene 650mg Take 2 [facility] 2-[facility]: positive mouth 325 mg 00 every 6 tablet hours as needed for Pain. ibuprofen Yes BRCA gene 600mg Take 1 [facility] (MOTRIN) 2-06 mutation tablet by He alth 600 mg 00:00: positive mouth tablet 00 every 6 hours as needed for Pain. gabapentin Yes BRCA gene 100mg Take 1 [facility] (NEURONTIN) 2-06 mutation capsule by [facility] 100 mg 00:00: positive mouth 3 capsule 00 times daily. acetaminoph Yes BRCA gene 650mg Take 2 [facility] en 2-06 mutation tablets by Healt h (TYLENOL) 00:00: positive mouth 325 mg 00 every 6 tablet hours as needed for Pain. ibuprofen Yes BRCA gene 600mg Take 1 [facility] (MOTRIN) 2-06 mutation tablet by alth 600 mg 00:00: positive mouth tablet 00 every 6 hours as needed for Pain. gabapentin Yes BRCA gene 100mg Take 1 [facility] (NEURONTIN) 2-06 mutation capsule by [facility] 100 mg 00:00: positive mouth 3 capsule 00 times daily. acetaminoph Yes BRCA gene 650mg Take 2 [facility] en 2-[facility] 00:00: positive mouth 325 mg 00 every 6 tablet hours as needed for Pain. ibuprofen Yes BRCA gene 600mg Take 1 [facility] (MOTRIN) 2-06 mutation tablet by alth 600 mg 00:00: positive mouth tablet 00 every 6 hours as needed for Pain. gabapentin Yes BRCA gene 100mg Take 1 [facility] (NEURONTIN) 2-06 mutation capsule by [facility] 100 mg 00:00: positive mouth 3 capsule 00 times daily. acetaminoph Yes BRCA gene 650mg Take 2 [facility] en 2-[facility] 00:00: positive mouth 325 mg 00 every 6 tablet hours as needed for Pain. promethazin 2016-02 Yes BRCA gene 25mg Take 1 [facility] e 1-14 positive tablet by [facility] (PHENERGAN) 00:00: mouth 25 mg 00 every 6 tablet hours as needed for Nausea or Vomiting. promethazin 2016-02 Yes BRCA gene 25mg Take 1 [facility] e 1-14 positive tablet by [facility] (PHENERGAN) 00:00: mouth 25 mg 00 every 6 tablet hours as needed for Nausea or Vomiting. promethazin 2016-02 Yes BRCA gene 25mg Take 1 [facility] e 1-14 positive tablet by [facility] (PHENERGAN) 00:00: mouth 25 mg 00 every 6 tablet hours as needed for Nausea or Vomiting. promethazin 2016-02 Yes BRCA gene 25mg Take 1 [facility] e 1-14 positive tablet by [facility] (PHENERGAN) 00:00: mouth 25 mg 00 every 6 tablet hours as needed for Nausea or Vomiting. raNITIdine 2016-02 Yes 150mg Q.5D Take 1 [place] is HCl 150 mg 0-19 tablet by [facility] tablet 00:00: mouth 2 00 times daily. raNITIdine 2016-02 Yes 150mg Q.5D Take 1 [place] is HCl 150 mg 0-19 tablet by [facility] tablet 00:00: mouth 2 00 times daily. raNITIdine 2016-02 Yes 150mg Q.5D Take 1 [place] is HCl 150 mg 0-19 tablet by [facility] tablet 00:00: mouth 2 00 times daily. raNITIdine 2016-02 Yes 150mg Q.5D Take 1 [place] is HCl 150 mg 0-19 tablet by [facility] tablet 00:00: mouth 2 00 times daily. BOOST oral 2016-02 Yes 1{packa Q.5D Take 1 Sagastume rris liquid 0-16 ge} Package by [facility] 00:00: mouth 2 00 times daily. BOOST oral 2016-02 Yes 1{packa Q.5D Take 1 Sagastume rris liquid 0-16 ge} Package by [facility] 00:00: mouth 2 00 times daily. BOOST oral 2016-02 Yes 1{packa Q.5D Take 1 Sagastume rris liquid 0-16 ge} Package by [facility] 00:00: mouth 2 00 times daily. BOOST oral 2016-02 Yes 1{packa Q.5D Take 1 Sagastume rris liquid 0-16 ge} Package by [facility] 00:00: mouth 2 00 times daily. ondansetron 2016-02 Yes 4mg Take 1 [facility] is (ZOFRAN) 4 0-12 tablet by [facility] mg tablet 00:00: mouth 00 every 8 hours as needed for up to 21 doses for Nausea. ondansetron 2016-02 Yes 4mg Take 1 [facility] is (ZOFRAN) 4 0-12 tablet by [facility] mg tablet 00:00: mouth 00 every 8 hours as needed for up to 21 doses for Nausea. ondansetron 2016-02 Yes 4mg Take 1 [facility] is (ZOFRAN) 4 0-12 tablet by [facility] mg tablet 00:00: mouth 00 every 8 hours as needed for up to 21 doses for Nausea. ondansetron 2016-02 Yes 4mg Take 1 [facility] is (ZOFRAN) 4 0-12 tablet by [facility] mg tablet 00:00: mouth 00 every 8 hours as needed for up to 21 doses for Nausea. acetaminoph 2016-02 Yes 2{tbl} Take 2 Sagastume rris en-codeine 0-09 tablets by [facility] (TYLENOL/CO 00:00: mouth DEINE #3) 00 every 4 300-30 mg hours as per tablet needed for Pain. silver 2016-02 Yes QD Apply to [facility] sulfADIAZIN 0-09 affected Heal th E 00:00: area daily (SILVADENE) 00 Apply to 1 % topical purple cream discolored areas of breasts. acetaminoph 2016-02 Yes 2{tbl} Take 2 Sagastume rris en-codeine 0-09 tablets by [facility] (TYLENOL/CO 00:00: mouth DEINE #3) 00 every 4 300-30 mg hours as per tablet needed for Pain. silver 2016-02 Yes QD Apply to [facility] sulfADIAZIN 0-09 affected Heal th E 00:00: area daily (SILVADENE) 00 Apply to 1 % topical purple cream discolored areas of breasts. acetaminoph 2016-02 Yes 2{tbl} Take 2 Sagastume rris en-codeine 0-09 tablets by [facility] (TYLENOL/CO 00:00: mouth DEINE #3) 00 every 4 300-30 mg hours as per tablet needed for Pain. silver 2016-02 Yes QD Apply to [facility] sulfADIAZIN 0-09 affected Heal th E 00:00: area daily (SILVADENE) 00 Apply to 1 % topical purple cream discolored areas of breasts. acetaminoph 2016-02 Yes 2{tbl} Take 2 Sagastume rris en-codeine 0-09 tablets by [facility] (TYLENOL/CO 00:00: mouth DEINE #3) 00 every 4 300-30 mg hours as per tablet needed for Pain. silver 2016-02 Yes QD Apply to [facility] sulfADIAZIN 0-09 affected Heal th E 00:00: area daily (SILVADENE) 00 Apply to 1 % topical purple cream discolored areas of breasts. No known No [facility] No known No [facility] No known No [facility] medications [facility] [place] [facility] No known No [facility] medications [facility] [place] [facility] No known No [facility] medications [facility] [place] [facility] No known [facility] Univers medications [facility] [place] [facility] No known No Univers medications [facility]y [facility] [place] [facility] No known No Univers medications [facility] [place] [facility] No known No Univers medications [facility] [place] [facility] No known No Univers medications [facility] [place] [facility] No known No Univers medications [facility] [place] [facility] No known No Univers medications [facility] [place] [facility] No known No Univers medications [facility]y [facility] [place] [facility] Tylenol # 3 Tylenol # 3 Yes Jerod one tab [facility] Immunizations Ordered Filled Immunization Date Status Comments [facility] e Immunization Name Name [employer] J&J 2020-06-05 Completed [facility] popeye of SARS-CoV-2 00:00:00 Medicine Vaccination Influenza Virus 2018-02-09 Completed Universit y of Vaccine [facility], 00:00:00 [place] [facility] Preserv and ABX Branch Free 2-64 YRS Influenza Virus 2018-02-09 Completed Universit y of Vaccine [facility], 00:00:00 [place] [facility] Preserv and ABX Branch Free 2-64 YRS Influenza Virus 2018-02-09 Completed Universit y of Vaccine [facility], 00:00:00 [place] [facility] Preserv and ABX Branch Free 2-64 YRS Influenza Virus 2018-02-09 Completed Universit y of Vaccine [facility], 00:00:00 [place] [facility] Preserv and ABX Branch Free 2-64 YRS Influenza Virus 2018-02-09 Completed Universit y of Vaccine [facility], 00:00:00 [place] [facility] Preserv and ABX Branch Free 2-64 YRS Influenza Virus 2018-02-09 Completed Universit y of Vaccine [facility], 00:00:00 [place] [facility] Preserv and ABX Branch Free 2-64 YRS Influenza Virus 2018-02-09 Completed Universit y of Vaccine [facility], 00:00:00 [place] [facility] Preserv and ABX Branch Free 2-64 YRS Influenza Virus 2018-02-09 Completed Universit y of Vaccine [facility], 00:00:00 [place] [facility] Preserv and ABX Branch Free 2-64 YRS Influenza Virus 2018-02-09 Completed Universit y of Vaccine [facility], 00:00:00 [place] [facility] Preserv and ABX Branch Free [...] QUAD PF 2018-02-[address] 00:00:00 [facility] Influenza Virus 2016-11-25 Completed Universit y of Vaccine 00:00:00 [facility] Influenza Virus 2016-11-25 Completed Universit y of Vaccine 00:00:00 [facility] Influenza Virus 2016-11-25 Completed Universit y of Vaccine 00:00:00 [facility] Influenza Virus 2016-11-25 Completed Universit y of Vaccine 00:00:00 [facility] Influenza Virus 2016-11-25 Completed Universit y of Vaccine 00:00:00 [facility] Influenza Virus 2016-11-25 Completed Universit y of Vaccine 00:00:00 [facility] Influenza Virus 2016-11-25 Completed Universit y of Vaccine 00:00:00 [facility] Influenza Virus 2016-11-25 Completed Universit y of Vaccine 00:00:00 [facility] Influenza Virus 2016-11-25 Completed Universit y of Vaccine 00:00:00 [facility] Influenza Virus 2016-11-25 Completed Universit y of Vaccine 00:00:00 [facility] Influenza Virus 2016-11-25 Completed Universit y of Vaccine 00:00:00 [facility] Influenza Virus 2016-11-25 Completed Universit y of Vaccine 00:00:00 [facility] Influenza Virus 2016-11-25 Completed Universit y of Vaccine 00:00:00 [facility] Influenza Virus 2016-11-25 Completed Universit y of Vaccine 00:00:00 [facility] Influenza Virus 2016-11-25 Completed Universit y of Vaccine 00:00:00 [facility] Influenza Virus 2016-11-25 Completed Universit y of Vaccine 00:00:00 [facility] Influenza Virus 2016-11-25 Completed Universit y of Vaccine 00:00:00 [facility] Influenza Virus 2016-11-25 Completed Universit y of Vaccine 00:00:00 [facility] [facility] Influenza Virus 2016-11-25 Completed [facility] Vaccine 00:00:00 [facility] Influenza Virus 2016-11-25 Completed [facility] Vaccine 00:00:00 [facility] Influenza Virus 2016-11-25 Completed [facility] Vaccine 00:00:00 [facility] Influenza Virus 2016-11-25 Completed [facility] Vaccine 00:00:00 [facility] Influenza Virus 2016-11-25 Completed [facility] Vaccine 00:00:00 [facility] Influenza Vaccine 2016-11-25 Completed [facility] 00:00:00 Influenza Vaccine 2016-11-25 Completed [facility] 00:00:00 Influenza Vaccine 2016-11-25 Completed [facility] 00:00:00 Influenza Vaccine 2016-11-25 Completed [facility] 00:00:00 Vital Signs Vital Name Observation Time Observation Value Comments Source Systolic blood 2022-06-05 16:19:00 131 mm[Hg] [facility] Diastolic blood 2022-06-05 16:19:00 74 mm[Hg] [facility] Heart rate 2022-06-05 16:19:00 70 /min [facility] Body temperature 2022-06-05 16:19:[address] [facility] Respiratory rate 2022-06-05 16:19:00 18 /min [facility] Body height 2022-06-05 16:19:00 165.1 cm [facility] Body weight 2022-06-05 16:19:00 68.04 kg [facility] BMI 2022-06-05 16:19:00 24.96 kg/m2 [facility] Oxygen saturation in 2022-06-05 16:19:00 99 /min [facility] Arterial blood by [facility] Pulse oximetry Systolic blood 2022-05-23 15:26:00 140 mm[Hg] [facility] Medicine Diastolic blood 2022-05-23 15:26:00 95 mm[Hg] [facility] Medicine Heart rate 2022-05-23 15:26:00 70 /min [facility] Body temperature 2022-05-23 15:26:[address] [facility] Respiratory rate 2022-05-23 15:26:00 16 /min [facility] Body height 2022-05-23 15:26:00 165.1 cm [facility] Body weight 2022-05-23 15:26:00 67.132 kg [facility] BMI 2022-05-23 15:26:00 24.63 kg/m2 [facility] Oxygen saturation in 2022-05-23 15:26:00 100 /min [facility] Arterial blood by [facility] Pulse oximetry Systolic blood 2022-05-12 13:05:00 138 mm[Hg] Univer sity of pressure [facility] Diastolic blood 2022-05-12 13:05:00 88 mm[Hg] Unive rsity of pressure [facility] Heart rate 2022-05-12 13:05:00 64 /min [facility]i [facility] of [facility] Body weight 2022-05-03 19:50:00 68.04 kg [facility]i ty of [facility] BMI 2022-05-03 19:50:00 25.75 kg/m2 [facility] ty of [facility] Systolic blood 2021-12-26 22:22:00 137 mm[Hg] Univer sity of pressure [facility] Diastolic blood 2021-12-26 22:22:00 88 mm[Hg] Unive rsity of pressure [facility] Heart rate 2021-12-26 22:22:00 61 /min Universi ty of [facility] Oxygen saturation in 2021-12-26 22:22:00 100 /min [facility] Arterial blood by [facility] Pulse oximetry Branch Body height 2021-12-26 22:21:00 162.6 cm Universi [facility] Body weight 2021-12-26 22:21:00 68.04 kg [facility]i [facility] BMI 2021-12-26 22:21:00 25.75 kg/m2 Universi ty of [facility] Systolic blood 2020-10-21 13:26:00 153 mm[Hg] Univer sity of pressure [facility] Diastolic blood 2020-10-21 13:26:00 103 mm[Hg] Unive rsity of pressure [facility] Heart rate 2020-10-21 13:26:00 79 /min Universi ty of [facility] Body height 2020-10-21 13:24:00 167.6 cm [facility] Body weight 2020-10-21 13:24:00 72.576 kg [facility]i ty of [facility] BMI 2020-10-21 13:24:00 25.82 kg/m2 [facility] Systolic blood 2020-07-26 19:53:00 137 mm[Hg] Univer sity of pressure [facility] Diastolic blood 2020-07-26 19:53:00 88 mm[Hg] Unive rsity of pressure [facility] Heart rate 2020-07-26 19:53:00 68 /min [facility]i [facility] Body temperature 2020-07-26 19:53:00 36.94 Liv Univ ersity of [facility] Respiratory rate 2020-07-26 19:53:00 18 /min Univ ersity of [facility] Body height 2020-07-26 19:53:00 165.1 cm [facility] Body weight 2020-07-26 19:53:00 76.204 kg [facility] BMI 2020-07-26 19:53:00 27.96 kg/m2 [facility] Systolic blood 2020-07-26 19:53:00 137 mm[Hg] Univer sity of pressure [facility] Diastolic blood 2020-07-26 19:53:00 88 mm[Hg] Unive rsity of pressure [facility] Heart rate 2020-07-26 19:53:00 68 /min [facility] Body temperature 2020-07-26 19:53:00 36.94 Liv Univ ersity of [facility] Respiratory rate 2020-07-26 19:53:00 18 /min Univ ersity of [facility] Body height 2020-07-26 19:53:00 165.1 cm [facility] Body weight 2020-07-26 19:53:00 76.204 kg [facility] BMI 2020-07-26 19:53:00 27.96 kg/m2 [facility] Systolic blood 2020-05-25 19:48:00 125 mm[Hg] Univer sity of pressure [facility] Diastolic blood 2020-05-25 19:48:00 85 mm[Hg] Unive rsity of pressure [facility] Heart rate 2020-05-25 19:48:00 73 /min [facility] Respiratory rate 2020-05-25 19:48:00 19 /min [facility] Body height 2020-05-25 19:48:00 165.1 cm [facility] Body weight 2020-05-25 19:48:00 77.474 kg [facility] BMI 2020-05-25 19:48:00 28.42 kg/m2 [facility] Oxygen saturation in 2020-05-25 19:48:00 97 /min University of Arterial blood by [facility] Pulse oximetry Branch Systolic blood 2020-05-21 19:31:00 146 mm[Hg] Univer sity of pressure [facility] Diastolic blood 2020-05-21 19:31:00 90 mm[Hg] Unive rsity of pressure [facility] Heart rate 2020-05-21 19:31:00 78 /min [facility] Oxygen saturation in 2020-05-21 19:31:00 99 /min University of Arterial blood by [facility] Pulse oximetry Branch Body height 2020-05-21 19:23:00 167.6 cm [facility] Body weight 2020-05-21 19:23:00 76.975 kg [facility] BMI 2020-05-21 19:23:00 27.41 kg/m2 [facility] Systolic blood 2020-03-16 16:20:00 142 mm[Hg] Univer sity of pressure [facility] Diastolic blood 2020-03-16 16:20:00 84 mm[Hg] Unive rsity of pressure [facility] Heart rate 2020-03-16 16:20:00 77 /min [facility] Body temperature 2020-03-16 16:20:00 36.56 Liv Univ ersity of [facility] Respiratory rate 2020-03-16 16:20:00 14 /min Univ ersity of [facility] Oxygen saturation in 2020-03-16 16:20:00 99 /min University of Arterial blood by [facility] Pulse oximetry Branch Body height 2020-03-12 18:40:00 167.6 cm [facility] Body weight 2020-03-12 18:40:00 72.576 kg [facility]i [facility] BMI 2020-03-12 18:40:00 25.84 kg/m2 Universi ty of [facility] Systolic blood 2019-09-03 20:23:00 124 mm[Hg] Univer sity of pressure [facility] Diastolic blood 2019-09-03 20:23:00 81 mm[Hg] Unive rsity of pressure [facility] Heart rate 2019-09-03 20:23:00 70 /min [facility] Body height 2019-09-03 20:23:00 167.6 cm [facility] Body weight 2019-09-03 20:23:00 72.576 kg stated Universi ty of [facility] BMI 2019-09-03 20:23:00 25.82 kg/m2 Universi ty of [facility] Systolic blood 2019-04-16 14:10:00 129 mm[Hg] Univer sity of pressure [facility] Diastolic blood 2019-04-16 14:10:00 86 mm[Hg] Unive rsity of pressure [facility] Heart rate 2019-04-16 14:10:00 69 /min Universi ty of [facility] Body height 2019-04-16 14:10:00 162.6 cm [facility] Body weight 2019-04-16 14:10:00 72.122 kg Universi ty of [facility] BMI 2019-04-16 14:10:00 27.29 kg/m2 Universi ty of [facility] Systolic blood 2019-04-09 16:11:00 124 mm[Hg] Univer sity of pressure [facility] Diastolic blood 2019-04-09 16:11:00 87 mm[Hg] Unive rsity of pressure [facility] Heart rate 2019-04-09 16:11:00 70 /min Universi ty of [facility] Respiratory rate 2019-04-09 16:11:00 19 /min Univ ersity of [facility] Body height 2019-04-09 16:11:00 162.6 cm Universi ty of [facility] Body weight 2019-04-09 16:11:00 71.487 kg [facility] BMI 2019-04-09 16:11:00 27.05 kg/m2 Universi [facility] Oxygen saturation in 2019-04-09 16:11:00 99 /min University Arterial blood by [facility] Pulse oximetry Branch Systolic blood 2019-04-07 20:17:00 131 mm[Hg] Univer sity of pressure [facility] Diastolic blood 2019-04-07 20:17:00 83 mm[Hg] Unive rsdiane of pressure [facility] Body height 2019-04-07 20:17:00 162.6 cm Universi [facility] Systolic blood 2018-10-04 14:39:00 136 mm[Hg] [facility] pressure Medicine Diastolic blood 2018-10-04 14:39:00 91 mm[Hg] [facility] pressure Medicine Heart rate 2018-10-04 14:39:00 78 /min [facility] Body height 2018-10-04 14:39:00 165.1 cm [facility] Body weight 2018-10-04 14:39:00 71.215 kg [facility] BMI 2018-10-04 14:39:00 26.13 kg/m2 [facility] Systolic blood 2018-10-04 14:39:00 136 mm[Hg] [facility] of pressure Medicine Diastolic blood 2018-10-04 14:39:00 91 mm[Hg] [facility] pressure Medicine Heart rate 2018-10-04 14:39:00 78 /min [facility] Body height 2018-10-04 14:39:00 165.1 cm [facility] Body weight 2018-10-04 14:39:00 71.215 kg [facility] BMI 2018-10-04 14:39:00 26.13 kg/m2 [facility] Systolic blood 2020-06-18 16:00:00 122 mm[Hg] Method [facility] pressure Diastolic blood 2020-06-18 16:00:00 79 mm[Hg] [facility] pressure Heart rate 2020-06-18 16:00:00 69 /min [facility] Respiratory rate 2020-06-18 16:00:00 18 /min [facility] Oxygen saturation in 2020-06-18 16:00:00 97 /min [facility] Arterial blood by Pulse oximetry Body temperature 2020-06-18 15:32:00 36.72 Liv Meth [facility] Body height 2020-06-18 14:00:00 167.6 cm [facility] Body weight 2020-06-18 14:00:00 77.111 kg [facility] BMI 2020-06-18 14:00:00 27.44 kg/m2 [facility] Procedures Procedure Date / Time Performing Clinician Source Performed AMB REF TO PSYCHOLOGY 2022-06-05 11:54:19 [facility] EXTERNAL Medicine XR C-SPINE AP, LAT, 2022-05-23 17:17:00 Sen Noel [facility] of [place] W FLEX-EXT Medicine XR LUMBAR SPINE AP 2022-05-23 17:17:00 Sen Noel [facility] llege of LATERAL [place] FLEXION Medicin e AND EXTENSION XR SCOLIOSIS 2 VIEWS 2022-05-23 17:17:00 Sen Noel [facility] XR C-SPINE AP, LAT, 2022-05-23 12:17:00 [facility] ol[facility] of [place] W FLEX-EXT Medicine XR SCOLIOSIS 2 VIEWS 2022-05-23 12:17:00 [facility] XR LUMBAR SPINE AP 2022-05-23 12:17:00 [facility] llege of LATERAL [place] FLEXION Medicin e AND EXTENSION XR CERVICAL SPINE COMP 2022-05-23 12:17:00 Sen Noel [facility] WITH FLEX AND EXT Center XR SPINE SCOLIOSIS STUDY 2022-05-23 12:17:00 Sen Noel [facility] [place] LUMBAR SPINE COMP 2022-05-23 12:17:00 Sen Noel [facility] WITH FLEX & EXT Center EXTERNAL PROVIDER 2020-08-19 05:01:00 Doctor Unassigned, No [facility] Name [facility] Branch AUTHORIZATION TO RELEASE 2020-07-26 05:01:00 Doctor Unassigned, No [facility] PHI TO [facility] Name Medical Branch AUTHORIZATION FOR 2020-06-30 05:01:00 Doctor Unassigned, No [facility] RELEASE OF [facility] Name Medical Branch CT POST MYELOGRAM LUMBAR 2020-06-18 15:33:36 Konrad Velazquez [facility] IR MYELOGRAM LUMB INCL 2020-06-18 15:06:03 Konrad Velazquez [facility] INJ W S&I ASSIGNMENT OF BENEFITS 2020-05-21 17:30:55 Doctor Unassigned, No University [facility] MRI SPINE EXTERNAL STUDY 2020-03-26 20:47:00 [facility]NAL ST[facility] 2020-03-26 19:37:00 [facility] CT SPINE EXTERNAL STUDY 2020-03-26 19:35:00 [facility] FL TIME OR 2020-03-16 14:50:00 Jed Coppola [facility] (NON-REPORTABLE) Medical [place] DAY SURGERY - ADC 2020-03-16 06:01:00 Doctor Unassigned, No [facility] VW 2020-03-15 19:38:24 Jed Coppola [facility] NOTICE OF PRIVACY 2020-03-15 19:19:39 Doctor Unassigned, No [facility] PRACTICES [facility] CONSENT/REFUSAL FOR 2020-03-15 19:19:16 Doctor Unassigned, No [facility]NOS[facility] TREATMENT [facility] ASSIGNMENT OF BENEFITS 2020-03-15 19:18:57 Doctor Unassigned, No [facility] DSU PRE-OP 2020-03-11 06:01:00 [facility]assigned, [facility]+ 2020-03-08 [facility] [id number] [facility] Spine lumbar wo 2020-03-08 00:00:00 [facility] [id number] MRI Spine thoracic wo 2020-03-08 00:00:00 [facility] [id number] REFERRAL- 2019-08-11 05:01:00 Doctor Unassigned, No [facility] [place] REQUEST/RESPONSE [facility] Medical [place] AUTHORIZATION FOR 2019-07-26 05:01:00 Doctor Unassigned, No [facility] RELEASE OF PHI [facility] MR FOOT LEFT WO CONTRAST 2019-07-17 13:55:24 Jed Coppola [facility] ASSIGNMENT OF BENEFITS 2019-04-07 19:58:22 Doctor Unassigned, No [facility] EXTERNAL PROVIDER - ADC 2019-03-11 06:01:00 Doctor Unassigned, N o [facility] Plan of Care Planned Activity Planned Date Details Comments Source Future Scheduled 2028-08-14 Screening for malignant [facility] Test 00:00:00 neoplasm of colon Medical Ce nter (procedure) [code = 754319665] Future Scheduled 2028-08-14 Screening for malignant [facility] Test 00:00:00 neoplasm of colon Medical Ce nter (procedure) [code = 571427522] Future Scheduled 2028-08-14 Screening for malignant [facility] Test 00:00:00 neoplasm of colon Medical Ce nter (procedure) [code = 352783502] Future Scheduled 2028-08-14 Screening for malignant [facility] Test 00:00:00 neoplasm of colon Medical Ce nter (procedure) [code = 688454727] Future Scheduled 2028-08-14 Screening for malignant [facility] Test 00:00:00 neoplasm of colon Medical Ce nter (procedure) [code = 341768192] Future Scheduled 2028-08-14 Screening for malignant [facility] Test 00:00:00 neoplasm of colon Medical Ce nter (procedure) [code = 989829648] Future Scheduled 2028-08-14 Screening for malignant [facility] Test 00:00:00 neoplasm of colon Medical Ce nter (procedure) [code = 121176696] Future Scheduled 2028-08-14 Screening for malignant [facility] Test 00:00:00 neoplasm of colon Medical Ce nter (procedure) [code = 361504434] Future Scheduled 2028-08-14 Screening for malignant [facility] Test 00:00:00 neoplasm of colon Medical Ce nter (procedure) [code = 088037988] Future Scheduled 2028-08-14 Screening for malignant [facility] Test 00:00:00 neoplasm of colon Medical Ce nter (procedure) [code = 933686601] Future Scheduled 2028-08-14 Screening for malignant [facility] Test 00:00:00 neoplasm of colon Medical Ce nter (procedure) [code = 185899508] Future Scheduled 2028-08-14 Screening for malignant [facility] Test 00:00:00 neoplasm of colon Medical Ce nter (procedure) [code = 741284519] Future Scheduled 2022-11-19 [facility] 00:00:00 (>/= 19 yrs) [code = IMM Influenza Seasonal (>/= 19 yrs)] Future Scheduled 2022-10-[address] [facility] Test 00:00:00 (Season Ended) [code = Medic al Center INFLUENZA VACCINE (Season Ended)] Future Scheduled 2022-10-[address] [facility] Test 00:00:00 (Season Ended) [code = Medic al Center INFLUENZA VACCINE (Season Ended)] Future Scheduled 2022-10-[address] [facility] Test 00:00:00 (Season Ended) [code = Medic al Center INFLUENZA VACCINE (Season Ended)] Future Scheduled 2022-10-[address] [facility] Test 00:00:00 (Season Ended) [code = Medic al Center INFLUENZA VACCINE (Season Ended)] Future Scheduled 2022-10-[address] [facility] Test 00:00:00 (Season Ended) [code = Medic al Center INFLUENZA VACCINE (Season Ended)] Future Scheduled 2022-07-21 COVID-19 [facility]ACCINE (#1) [facility]10 [code = COVID-19 VACCINE Hos pital (#1)] Future Scheduled 2022-07-21 Hepatitis C screening [facility] 08:50:10 (procedure) [code = Hospital 392292483] Future Scheduled 2022-07-21 Screening for malignant [facility] 08:50:10 neoplasm of cervix Hospital (procedure) [code = 419382998] Future Scheduled 2022-07-21 BREAST CANCER SCREENING [facility] 08:50:10 [code = BREAST CANCER Hospit al SCREENING] Future Scheduled 2022-07-21 COLONOSCOPY SCREENING [facility] 08:50:10 [code = COLONOSCOPY Hospital SCREENING] Future Scheduled 2022-07-21 INFLUENZA VACCINE [code [facility] 08:50:10 = INFLUENZA VACCINE] Hospita l Future Scheduled 2022-06-11 TETANUS SHOT (ADULT) [facility] Test 22:00:41 [code = TETANUS SHOT Medicin e (ADULT)] Future Scheduled 2022-06-11 Human immunodeficiency [facility] Test 22:00:41 virus screening Medicine (procedure) [code = 155471233] Future Scheduled 2022-06-11 Hepatitis C screening [facility] Test 22:00:41 (procedure) [code = Medicine 183704964] Future Scheduled 2022-06-11 Screening for malignant [facility] of Test 22:00:41 neoplasm of cervix Medicine (procedure) [code = 705308036] Future Scheduled 2022-06-11 COVID-19 Vaccine (2 - Ba [facility] of Test 22:00:41 Booster for David Medicine series) [code = COVID-19 Vaccine (2 - Booster for David series)] Future Scheduled 2022-06-11 FLU VACCINE > 6 MONTHS [facility] Test 22:00:41 [code = FLU VACCINE > 6 Medi cine MONTHS] Future Scheduled 2022-06-11 Screening for malignant [facility] Test 22:00:41 neoplasm of colon Medicine (procedure) [code = 636492404] Future Scheduled 2022-05-25 TETANUS SHOT (ADULT) [facility] of Test 08:54:43 [code = TETANUS SHOT Medicin e (ADULT)] Future Scheduled 2022-05-25 Human immunodeficiency [facility] Test 08:54:43 virus screening Medicine (procedure) [code = 824365439] Future Scheduled 2022-05-25 Hepatitis C screening [facility] Test 08:54:43 (procedure) [code = Medicine 386608666] Future Scheduled 2022-05-25 Screening for malignant [facility] Test 08:54:43 neoplasm of cervix Medicine (procedure) [code = 365244028] Future Scheduled 2022-05-25 COVID-19 Vaccine (2 - Ba [facility] Test 08:54:43 Booster for David Medicine series) [code = COVID-19 Vaccine (2 - Booster for David series)] Future Scheduled 2022-05-25 FLU VACCINE > 6 MONTHS [facility] Test 08:54:43 [code = FLU VACCINE > 6 Medi cine MONTHS] Future Scheduled 2022-05-25 Screening for malignant [facility] of Test 08:54:43 neoplasm of colon Medicine (procedure) [code = 531056069] Future Scheduled 2022-02-[address] [facility] Test 00:00:00 (12+) [code = DEPRESSION Med ical Center SCREENING (12+)] Future Scheduled 2022-02-[address] [facility] Test 00:00:00 (12+) [code = DEPRESSION Med ical Center SCREENING (12+)] Future Scheduled 2022-02-[address] [facility] Test 00:00:00 (12+) [code = DEPRESSION Med ical Center SCREENING (12+)] Future Scheduled 2022-02-[address] [facility] Test 00:00:00 (12+) [code = DEPRESSION Med ical Center SCREENING (12+)] Future Scheduled 2022-02-[address] [facility] Test 00:00:00 (12+) [code = DEPRESSION Med ical Center SCREENING (12+)] Future Scheduled 2021-12-22 [facility]atitis C screening [facility] 09:04:02 (procedure) [code = Hospital [id number]] Future Scheduled 2021-12-22 Screening for malignant [facility] 09:04:02 neoplasm of cervix Hospital (procedure) [code = 856355952] Future Scheduled 2021-12-22 BREAST CANCER SCREENING [facility] 09:04:02 [code = BREAST CANCER Hospit al SCREENING] Future Scheduled 2021-12-22 COLONOSCOPY [facility]CREENING [facility] 09:04:02 [code = COLONOSCOPY Hospital SCREENING] Future Scheduled 2021-12-22 INFLUENZA VACCINE [code [facility] 09:04:02 = INFLUENZA VACCINE] Hospita l Future Scheduled 2021-12-22 HEPATITIS B VACCINES (1 [facility] 09:04:02 of 3 - 3-dose series) Hospit al [code = HEPATITIS B VACCINES (1 of 3 - 3-dose series)] Future Scheduled 2021-12-22 COVID-19 VACCINE (#1) [facility] 09:04:02 [code = COVID-19 VACCINE Hos pital (#1)] Future Scheduled 2021-11-19 [facility]enza [facility] 00:00:00 (>/= 19 yrs) [code = IMM Influenza Seasonal (>/= 19 yrs)] Future Scheduled 2021-08-01 Screening for malignant [facility] Test 00:00:00 neoplasm of cervix (procedure) [code = 555154291] Future Scheduled 2021-08-01 Screening for malignant [facility] Test 00:00:00 neoplasm of cervix (procedure) [code = 362712379] Future Scheduled 2021-08-01 Screening for malignant [facility] Test 00:00:00 neoplasm of cervix (procedure) [code = 406046192] Future Scheduled 2021-08-01 Screening for malignant [facility] Test 00:00:00 neoplasm of cervix (procedure) [code = 463064912] Future Scheduled 2021-02-22 COVID-19 VACCINE (1) [facility] 12[facility]07:17 [code = COVID-19 VACCINE Hos pital (1)] Future Scheduled 2021-02-22 Hepatitis C screening [facility] 12:07:17 (procedure) [code = Hospital 068857567] Future Scheduled 2021-02-22 Screening for malignant [facility] 12:07:17 neoplasm of cervix Hospital (procedure) [code = 419871124] Future Scheduled 2021-02-22 INFLUENZA VACCINE [code [facility] 12:07:17 = INFLUENZA VACCINE] Hospita Future Scheduled 2021-02-22 COVID-19 VACCINE (1) [facility] 12:07:17 [code = COVID-19 VACCINE Hos pital (1)] Future Scheduled 2021-02-22 Hepatitis C screening [facility] 12:07:17 (procedure) [code = Hospital 092730397] Future Scheduled 2021-02-22 Screening for malignant [facility] 12:07:17 neoplasm of cervix Hospital (procedure) [code = 883140627] Future Scheduled 2021-02-22 INFLUENZA VACCINE [code [facility] 12:07:17 = INFLUENZA VACCINE] Hospita l Future Scheduled 2020-11-19 IMM Influenza Seasonal [facility] 00:00:00 Nov to April (>/= 19 yrs) [code = IMM Influenza Seasonal Oct to April (>/= 19 yrs)] Future Scheduled 2020-11-19 IMM Influenza Seasonal [facility] 00:00:00 Nov to April (>/= 19 yrs) [code = IMM Influenza Seasonal Oct to April (>/= 19 yrs)] Future Scheduled 2020-10-20 INFLUENZA VACCINE (#1) [facility] [code = INFLUENZA Medical Ce nter VACCINE (#1)] Future Scheduled 2020-10-20 INFLUENZA VACCINE (#1) [facility] 00:00[facility]00 [code = INFLUENZA Medical Ce nter VACCINE (#1)] Future Scheduled 2020-02-[address] [facility] 00:00:00 (12+) [code = DEPRESSION Med ical Center SCREENING (12+)] Future Scheduled 2020-02-[address] [facility] 00:00:00 (12+) [code = DEPRESSION Med ical Center SCREENING (12+)] Future Scheduled 2019-12-24 Lipid panel (procedure) [facility] 00:00:00 [code = 26803493] Medical Ce nter Future Scheduled 2019-12-24 Lipid panel (procedure) [facility] 00:00:00 [code = 17722568] Medical Ce nter Future Scheduled 2019-12-24 Lipid panel (procedure) [facility] 00:00:00 [code = 94636333] Medical Ce nter Future Scheduled 2019-12-24 Lipid panel (procedure) [facility] 00:00:00 [code = 34704417] Medical Ce nter Future Scheduled 2019-12-24 Lipid panel (procedure) [facility] 00:00:00 [code = 78776399] Medical Ce nter Future Scheduled 2019-12-24 Lipid panel (procedure) [facility] 00:00:00 [code = 20003989] Medical Ce nter Future Scheduled 2019-12-24 Lipid panel (procedure) [facility] 00:00:00 [code = 16574551] Medical Ce nter Future Scheduled 2017-12-27 Breast Cancer Scrn Harri [...] Scrn (Yearly)] Future Scheduled 2004 Screening for malignant [facility] 00:00:00 neoplasm of cervix (procedure) [code = 697829511] Future Scheduled 2004 Screening for malignant [facility] 00:00:00 neoplasm of cervix (procedure) [code = 022997878] Future Scheduled 2004 Screening for malignant [facility] 00:00:00 neoplasm of cervix (procedure) [code = 707003875] Future Scheduled 2004 Screening for malignant [facility] 00:00:00 neoplasm of cervix (procedure) [code = 973084317] Future Scheduled 1995-12-24 Screening for malignant [facility] Test 00:00:00 neoplasm of cervix Medical C enter (procedure) [code = 061198636] Future Scheduled 1995-12-24 Screening for malignant [facility] Test 00:00:00 neoplasm of cervix Medical C enter (procedure) [code = 602653446] Future Scheduled 1995-12-24 Screening for malignant [facility] 00:00:00 neoplasm of cervix Medical C enter (procedure) [code = 337755188] Future Scheduled 1995-12-24 Screening for malignant [facility] Test 00:00:00 neoplasm of cervix Medical C enter (procedure) [code = 891806211] Future Scheduled 1995-12-24 Screening for malignant [facility] Test 00:00:00 neoplasm of cervix Medical C enter (procedure) [code = 912712548] Future Scheduled 1995-12-24 Screening for malignant [facility] Test 00:00:00 neoplasm of cervix Medical C enter (procedure) [code = 505081754] Future Scheduled 1995-12-24 Screening for malignant [facility] Test 00:00:00 neoplasm of cervix Medical C enter (procedure) [code = 795182024] Future Scheduled 1993 DTAP/TDAP/TD VACCINES ([address] [facility] 00:00:00 - Tdap) [code = Medical Cent er DTAP/TDAP/TD VACCINES (1 - Tdap)] Future Scheduled 1993 DTAP/TDAP/TD VACCINES ([address] [facility] 00:00:00 - Tdap) [code = Medical Cent er DTAP/TDAP/TD VACCINES (1 - Tdap)] Future Scheduled 1993 DTAP/TDAP/TD VACCINES ([address] [facility] 00:00:00 - Tdap) [code = Medical Cent er DTAP/TDAP/TD VACCINES (1 - Tdap)] Future Scheduled 1993 DTAP/TDAP/TD VACCINES ([address] [facility] 00:00:00 - Tdap) [code = Medical Cent er DTAP/TDAP/TD VACCINES (1 - Tdap)] Future Scheduled 1993 DTAP/TDAP/TD VACCINES ([address] [facility] 00:00:00 - Tdap) [code = Medical Cent er DTAP/TDAP/TD VACCINES (1 - Tdap)] Future Scheduled 1993 DTAP/TDAP/TD VACCINES ([address] [facility] 00:00:00 - Tdap) [code = Medical Cent er DTAP/TDAP/TD VACCINES (1 - Tdap)] Future Scheduled 1993 DTAP/TDAP/TD VACCINES ([address] [facility] 00:00:00 - Tdap) [code = Medical Cent er DTAP/TDAP/TD VACCINES (1 - Tdap)] Future Scheduled [...] C Medical Center SCREENING] Future Scheduled [address] [facility] Test 00:00:00 Counseling and Screening Med [facility] (12+) [code = Tobacco Cessation Counseling and Screening (12+)] Future Scheduled [address] [facility] Test 00:00:00 Counseling and Screening Med [facility] (12+) [code = Tobacco Cessation Counseling and Screening (12+)] Future Scheduled [address] [facility] Test 00:00:00 Counseling and Screening Med ical Center (12+) [code = Tobacco Cessation Counseling and Screening (12+)] Future Scheduled 1986 COVID-19 VACCINE (1) [facility] 00:00:00 [code = COVID-19 VACCINE Med ical Center (1)] Future Scheduled [address] [facility] 00:00:00 Counseling and Screening Med ical Center (12+) [code = Tobacco Cessation Counseling and Screening (12+)] Future Scheduled [address] [facility] 00:00:00 Counseling and Screening Med ical Center (12+) [code = Tobacco Cessation Counseling and Screening (12+)] Future Scheduled 1986 COVID-19 VACCINE (1) [facility] 00:00:00 [code = COVID-19 VACCINE Med ical Center (1)] Future Scheduled 1979-12-24 COVID-19 Vaccine (1) [facility] 00:00:00 [code = COVID-19 Vaccine (1)] Future Scheduled 1979-12-24 COVID-19 Vaccine (1) [facility] 00:00:00 [code = COVID-19 Vaccine (1)] Future Scheduled 1975-06-23 COVID-19 VACCINE (#1[facility] [code = COVID-19 VACCINE Med ical Center (#1)] Future Scheduled 1975-06-23 COVID-19 Vaccine (#1) [facility] 00:00:00 [code = COVID-19 Vaccine (#1)] Future Scheduled 1975-06-23 COVID-19 VACCINE (#1) [facility]00 [code = COVID-19 VACCINE Med ical Center (#1)] Future Scheduled 1975-06-23 COVID-19 VACCINE (#1) [facility] 00:00[facility]00 [code = COVID-19 VACCINE Med ical Center (#1)] Future Scheduled 1975-06-23 COVID-19 VACCINE (#1) [facility] 00:00:00 [code = COVID-19 VACCINE Med ical Center (#1)] Future Scheduled 1975-06-23 COVID-19 VACCINE (#1) [facility] 00:00:00 [code = COVID-19 VACCINE Med ical Center (#1)] Future Scheduled 1975-06-23 COVID-19 Vaccine (#1) [facility] 00:00:00 [code = COVID-19 Vaccine (#1)] Future Scheduled 1974 CT Colonography (combo) [facility] 00:00:00 [code = CT Colon[facility] (combo)] Future Scheduled 1974 Screening for malignant [facility] 00:00:00 neoplasm of colon Medical Ce nter (procedure) [code = 557027243] Future Scheduled 1974 Screening for malignant [facility] 00:00:00 neoplasm of colon Medical Ce nter (procedure) [code = 803017873] Future Scheduled 1974 Sigmoidoscopy [code = [facility] S[facility]oscopy] Medical Cente r Future Scheduled 1974 CT Colonography (combo) [facility] 00:00:00 [code = CT Colon[facility] (combo)] Future Scheduled 1974 Screening for malignant [facility] 00:00:00 neoplasm of colon Medical Ce nter (procedure) [code = 950121439] Future Scheduled 1974 Screening for malignant [facility] 00:00:00 neoplasm of colon Medical Ce nter (procedure) [code = 634186054] Future Scheduled 1974 Sigmoidoscopy [code [facility] 00[facility] S[facility]oidoscopy] Medical Cente r Future Scheduled 1974 CT Colonography (combo) [facility] 00:00:00 [code = CT [facility] (combo)] Future Scheduled 1974 Screening for malignant [facility] 00:00:00 neoplasm of colon Medical Ce nter (procedure) [code = 695540651] Future Scheduled 1974 Screening for malignant [facility] Test 00:00:00 neoplasm of colon Medical Ce nter (procedure) [code = 157609085] Future Scheduled 1974 Sigmoidoscopy [facility]code [facility] S[facility]oidoscopy] Medical Jamiee r Future Scheduled 1974 CT Colonography (combo) [facility] 00:00:00 [code = CT Colonography [facility] (combo)] Future Scheduled 1974 Screening for malignant [facility] Test 00:00:00 neoplasm of colon Medical Ce nter (procedure) [code = 559240946] Future Scheduled 1974 Screening for malignant [facility] Test 00:00:00 neoplasm of colon Medical Ce nter (procedure) [code = 742409715] Future Scheduled 1974 Sigmoidoscopy [code [facility] 00:[facility] Sigmoidoscopy] Medical Jamiee r Future Scheduled 1974 CT Colonography (combo) [facility] Test 00:00:00 [code = CT Colonography [facility] (combo)] Future Scheduled 1974 Screening for malignant [facility] Test 00:00:00 neoplasm of colon Medical Ce nter (procedure) [code = 549435137] Future Scheduled 1974 Screening for malignant [facility] Test 00:00:00 neoplasm of colon Medical Ce nter (procedure) [code = 976466019] Future Scheduled 1974 Sigmoidoscopy [facility]code [facility] 00:[facility] S[facility]oscopy] Medical Francisco Javier r Future Scheduled MAMMOGRAM ANNUAL [code = [facility] Test MAMMOGRAM ANNUAL] Medicine Future Scheduled TETANUS SHOT (ADULT) [facility] Test [code = TETANUS SHOT Medicin e (ADULT)] Future Scheduled BMI FOLLOW UP PLAN [code [facility] Test = BMI FOLLOW UP PLAN] Medici ne Future Scheduled HIV SCREENING [code = [facility] Test HIV SCREENING] Medicine Future Scheduled CERVICAL CANCER [facility] Test SCREENING 3 YEAR FOLLOW Medi cine UP [code = CERVICAL CANCER SCREENING 3 YEAR FOLLOW UP] Future Scheduled FLU VACCINE > 6 MONTHS B [facility] Test [code = FLU VACCINE > 6 Medi cine MONTHS] Future Appointment 2022-08-01 King Morales MD, BIJAN Thornton 14:40:00 [address] [address] [address] [address] Future Appointment 2022-08-01 King Morales MD, [facility] 14:40:[address] [address], [place] [address] Future Appointment 2022-08-01 King Morales MD [facility] 14:40:[address]; [facility] [address], [place] [address] Future Appointment 2022-08-01 King Morales MD [facility] 14:40:[address]; [facility] [address], [place] [address] Procedure 2022-08-01 [facility] 14:[facility] STIMULATOR, FOR TRIAL Medica l Effie Procedure 2022-08-01 PROCEDURE W/ C-[facility] Center Encounters Start End Encounter Admission Attending Care Care Encounter Source Date/Time Date/Time Type Type Clinicians Facility Department ID 2022-07-21 Outpatient COUNT INCLUDES [facility] Surgery [id number] [facility] 08:35:55 , KING 2021-03-16 Outpatient STLMLC STLMLC [id number] [facility] 13:54:33 [id number] [facility] 2020-12-18 [facility] [id number] Univers 18:39:16 JED [facility] 2016-12-11 Inpatient [facility] [id number] H arris 19:13:58 [facility] 2016-11-22 Inpatient [facility] [id number] H arris 15:22:01 [facility] 2016-11-21 Inpatient [facility] [id number] H arris 01:48:38 [facility] 2016-11-21 Inpatient [facility] [id number] H arris 01:48:30 [facility] 2016-11-20 Inpatient HHS LENKA [id number] H arris 05:55:00 Health 2022-07-25 2022-07-25 Outpatient SLE [facility] [id number] [facility] 00:00:00 00:00:00 2022-07-21 2022-07-21 Outpatient R [facility] [id number] Univers 10:00:00 10:00:00 [facility] 2022-06-05 2022-06-[address] [facility] 1.2.840.114 [id number] [facility] [place] 11:06:33 15:45:19 Visit , KING AMBULATOR 350.1.13.21 College Y 0.2.7.2.686 [id number] Medi marc 300 e 2022-05-29 2022-05-29 Outpatient SEN RUBY [facility] [id number] SLEH 00:00:00 00:00:00 2022-05-29 2022-05-29 Outpatient SEN RUBY [facility] [id number] SLEH 00:00:00 00:00:00 2022-05-29 2022-05-29 Outpatient SEN RUBY [facility] [id number] SLE 00:00:00 00:00:00 2022-05-23 2022-05-23 [facility] [id number] 11:41:12 23:59:00 Encounter [facility] 2022-05-23 2022-05-23 [facility] [id number] [id number] 11:41:12 23:59:00 Encounter [facility] 2022-05-23 2022-05-23 Outpatient SEN RUBY [facility] [id number] SLE 11:41:12 23:59:00 2022-05-23 2022-05-23 [facility] [id number] [id number] 11:40:52 11:40:52 Encounter [facility] 2022-05-23 2022-05-23 [facility] [id number] [id number] 11:40:52 11:40:52 Encounter [facility] 2022-05-23 2022-05-23 Outpatient SEN RUBY [facility] [id number] SLE 11:40:52 11:40:52 2022-05-23 2022-05-23 [facility] [id number] [id number] 11:40:23 11:40:23 Encounter [facility] 2022-05-23 2022-05-23 [facility] Sen Noel [facility] [id number] 11:40:23 11:40:23 Encounter [facility] 2022-05-23 2022-05-23 Outpatient SEN RUBY SLE [facility] [id number] SLE 11:40:23 11:40:23 2022-05-23 2022-05-23 Office SEN NOEL [facility] 1.2.840.114 [id number] [facility] [place] 10:23:43 11:32:31 Visit AMBULATOR 350.1.13.21 College Y 0.2.7.2.686 of [id number] Medi marc 300 e 2022-05-23 2022-05-23 [facility] Sen Noel [facility] [id number] 00:00:00 00:00:00 Only [facility] 2022-05-23 2022-05-23 [facility] Sen Noel [facility] [id number] 00:00:00 00:00:00 Only [facility] 2022-05-12 2022-05-12 [facility] [id number] Univers 08:00:00 08:35:50 [facility] 2022-05-12 2022-05-12 Office [facility] 1.2.840.114 [id number] Univers 08:00:00 08:15:00 Visit [facility] 350.1.13.10 it y of [place] 4.2.7.2.686 [place] BURKE?BLEA [id number] [facility] [address] OFFICE BUILDING 2022-05-03 2022-05-03 [facility], Ang - Db [facility] 1.2.840.1 [id number] Univers 15:30:00 15:45:00 Visit DoshiBakari [facility] 350.1.13.10 ity of [place] 4.2.7.2.686 [place] BURKE?BLEA [id number] Nm mele[address] OFFICE BUILDING 2022-05-03 2022-05-03 Outpatient Feliciano [facility] [id number] [facility] 15:15:00 15:26:27 BAKARI ity [facility] 2022-05-03 2022-05-03 Office [facility] [place] 1.2.840.114 [id number] [facility] 15:15:00 15:26:27 Visit Bakari S HEALTH 350.1.13.10 it y of [place] 4.2.7.2.686 [place] BURKE?BLEA [phone] Nm chidi HOWARD [address] OFFICE [facility] 2022-01-06 2022-01-06 [facility] 1.2.209.656 [id number] Univers 00:00:00 00:00:00 Bakari S HEALTH 350.1.13.10 it y of [place] 4.2.7.2.686 [place] BURKE?BLEA [phone] Nm chidi HOWARD [address] OFFICE [facility] 2022-01-06 2022-01-06 [place] [facility] 1.2.220.736 [id number] Univers 00:00:00 00:00:00 Bakari S HEALTH 350.1.13.10 it y of [place] 4.2.7.2.686 [place] BURKE?BLEA [phone] Nm chidi HOWARD [address] OFFICE [facility] 2022-01-04 2022-01-04 [facility] 1.2.126.202 [id number] Univers 00:00:00 00:00:00 Bakari S HEALTH 350.1.13.10 it y of [place] 4.2.7.2.686 [place] BURKE?BLEA [phone] Nm chidi HOWARD [address] OFFICE [facility] 2021-12-28 2021-12-28 [facility] 1.2.233.156 [id number] Univers 00:00:00 00:00:00 Bakari S HEALTH 350.1.13.10 it y of [place] 4.2.7.2.686 [place] BURKE?BLEA [phone] Nm chidi HOWARD [address] [place] [address] OFFICE [facility] 2021-12-26 2021-12-26 Outpatient R [facility] [id number] Univers 16:27:58 23:59:00 BAKARI ity [facility] 2021-12-26 2021-12-26 Office [facility] 1.2.840.114 [id number] Univers 14:00:00 14:15:00 Visit Bakari MILLER 350.1.13.10 [facility] 4.2.7.2.686 [place] BURKE?BLEA [phone] Nm chidi LEON[address] OFFICE [facility] 2021-08-24 2021-08-24 [facility] [id number] Univers 13:30:00 13:30:00 LUIS francisco javier [facility] 2021-07-26 2021-07-26 Outpatient [facility] [id number] Univers 09:30:00 [facility]:30[facility] 2020-12-07 2020-12-07 Travel 1.2.840.1 [id number] [id number] Methodi 00:00:00 00:00:[address] 3.430.2.7 0.2.7.3.698 Ho spita .3.896580 084.8 l .8 2020-11-04 2020-11-04 Outpatient [facility] [id number] Univers 08:30:00 08:30:00 OLMAN francisco javier [facility] 2020-11-02 2020-11-02 Outpatient Feliciano [facility] [id number] Univers 08:30:00 08:30:00 BAKARI francisco javier [facility] 2020-10-28 2020-10-28 Outpatient Feliciano [facility] [id number] Univers 16:15:00 16:15:00 BAKARI francisco javier [facility] 2020-10-21 2020-10-21 Office Tico Bakari [facility] 1.2.840.114 [id number] Univers 08:12:07 08:27:07 Visit Olman Stuart Paul 350.1.13.10 ity of [place] 4.2.7.2.686 [place] Burke?Blea [phone] Nm chidi kney [address] [facility] 2020-10-21 2020-10-21 Outpatient R NARCISO, [facility] [id number] Univers 08:15:00 08:15:00 OLMAN [facility] 2020-09-02 2020-09-02 Office Marcus, 1.2.840.1 [id number] Methodi 14:52:10 15:07:10 Visit Konrad S. 74851.1.1 461 s t 3.430.2.7 Hospit a .3.405876 l .8 2020-08-19 2020-08-19 Orders Doctor BRYAN 1.2.840.114 [id number] 00:00:00 00:00:00 Only Unassigned, KAIT 350.1.13.10 [place] [facility] 4.2.7.2.686 [id number] 009 2020-08-19 2020-08-19 Orders Doctor BRYAN 1.2.840.114 [id number] [facility] 00:00:00 00:00:00 Only Unassigned, KAIT 350.1.13.10 ity of [place] [facility] 4.2.7.2.686 [place] [phone] [address] 2020-08-12 2020-08-12 Case [facility] 1.2.063.752 [id number] 00:00:00 00:00:00 Management Luis Flaherty 350.1.13.10 [place] 4.2.7.2.686 Professio [phone] [address] 2020-08-12 2020-08-12 Case [facility] 1.2.165.202 [id number] [facility] 00:00:00 00:00:00 Management Luis Flaherty 350.1.13.10 [place]y of [place] Profess[place] [phone] Nm dical [address] 2020-07-27 2020-07-27 Outpatient R KAYODE, [facility] [id number] Univers 11:30:00 11:30:00 SENDYONI contreras [facility] 2020-07-26 2020-07-26 Office Nicolette [facility] 1.2.432.376 [id number] 14:43:48 15:35:48 Visit Luis Flaherty 350.1.13.10 [place] 4.2.7.2.686 Professio [phone] [address] 2020-07-26 2020-07-26 Office [facility] 1.2.877.785 [id number] [facility] 14:43:48 15:35:48 Visit Luis Flaherty 350.1.13.10 i ty [place] Profess[place] [phone] Nm dical [address] 2020-07-26 2020-07-26 [facility] [id number] [facility] 10:45:00 10:45:00 LUIS contreras [facility] 2020-07-26 2020-07-26 Orders Doctor BRYAN 1.2.840.114 [id number] 00:00:00 00:00:00 Only Unassigned, KAIT 350.1.13.10 [place] [facility] 4.2.7.2.686 [id number] [facility] 2020-07-26 2020-07-26 Telephone [facility] 1.2.840.114 [id number] 00:00:00 00:00:00 Luis Flaherty 350.1.13.10 [place] 4.2.7.2.686 Professio [phone] [address] 2020-07-26 2020-07-26 Orders Doctor ADAMS 1.2.840.114 [id number] [facility] 00:00:00 00:00:00 Only Unassigned, KAIT 350.1.13.10 ity of [place] [facility] 4.2.7.2.686 [place] [phone] [address] 2020-07-26 2020-07-26 Telephone [facility] 1.2.840.114 [id number] [facility] 00:00:00 00:00:00 Luis Flaherty 350.1.13.10 i ty of [place] [phone] Nm dical [address] 2020-07-09 2020-07-09 Outpatient R [facility] [id number] Univers 13:15:00 13:15:00 ity of [facility] 2020-07-06 2020-07-06 Outpatient AN, [facility] [id number] Memoria 05:25:00 17:15:00 [facility]ARGARITA [facility] 2020-06-30 2020-06-30 Orders Doctor BRYAN 1.2.840.114 [id number] 00:00:00 00:00:00 Only Unassigned, KAIT 350.1.13.10 [place] [facility] 4.2.7.2.686 [id number] 009 2020-06-30 2020-06-30 Orders Doctor BRYAN 1.2.840.114 [id number] Univers 00:00:00 00:00:00 Only Unassigned, KAIT 350.1.13.10 ity of [place] [facility] 4.2.7.2.686 [place] [phone] [facility] [address] 2020-06-29 2020-06-29 Telephone Popeye Painter 1.2.840.114 [id number] Univers 00:00:00 00:00:00 , Libra Hurtado Cuevas 350.1.13.10 ity of [place].2.[place] [id number] [facility] [address] 2020-06-28 2020-06-28 Travel 1.2.840.1 1.2.912.256 [id number] Methodi 00:00:00 00:00:[address] 3.430.2.7 0.2.7.3.698 Ho spita .3.809859 084.8 l .8 2020-06-23 2020-06-23 Outpatient R KAYODE [facility] [id number] Univers 10:00:00 10:00:00 SENDIL ity [facility] 2020-06-23 2020-06-23 Outpatient Feliciano HEADLEY [facility] [id number] Univers 09:30:00 09:30:00 SENDIL ity [facility] 2020-06-22 2020-06-22 Travel 1.2.840.1 1.2.519.694 [id number] Methodi 00:00:00 00:00:[address] 3.430.2.7 0.2.7.3.698 Ho spita .3.880302 084.8 l .8 2020-06-18 2020-06-18 [facility], 1.2.840.1 [id number] Methodi 10:04:33 23:59:00 Encounter Konrad S. [address]85.1.[address] 3.430.2.7 Hospit a .3.000057 l .8 2020-06-18 2020-06-18 [facility], 1.2.840.1 [id number] Methodi 08:44:19 10:03:00 Encounter Konrad S. [address]35.1.[address] 3.430.2.7 Hospit a .3.829200 l .8 2020-06-17 2020-06-17 Travel 1.2.840.1 1.2.359.090 [id number] Methodi 00:00:00 00:00:[address] 3.430.2.7 0.2.7.3.698 Ho spita .3.760925 084.8 l .8 2020-06-17 2020-06-17 Telephone [facility] [facility] 1.2.840.1 [id number] Methodi 00:00:00 00:00:00 noglisbet, 44285.1.[address] [place] 3.430.2.7 Hospi ta .3.544331 l .8 2020-06-10 2020-06-15 Office Washta, 1.2.840.1 [id number] Methodi 14:36:45 00:44:39 Visit Konrad SShannon 59696.1.1 046 s t 3.430.2.7 Hospit a .3.592191 l .8 2020-06-11 2020-06-11 Orders Blancas, 1.2.840.1 [id number] 7210 Methodi 00:00:00 00:00:00 Only Rayo 45659.1.[address] 3.430.2.7 Hospit a .3.783976 l .8 2020-06-11 2020-06-11 Orders Blancas, 1.2.840.1 [id number] 8377 Methodi 00:00:00 00:00:00 Only Rayo 32122.1.[address] 3.430.2.7 Hospit a .3.142683 l .8 2020-06-10 2020-06-10 [facility], 1.2.840.1 [id number] 76395 Methodi 21:29:33 23:59:00 Encounter Konrad S. 00688.1.[address] 3.430.2.7 Hospit a .3.142087 l .8 2020-06-10 2020-06-10 [facility] 1.2.840.1 [id number] 02589 Methodi 21:28:44 21:28:44 Encounter Konrad S. 53139.1.[address] 3.430.2.7 Hospit a .3.788901 l .8 2020-06-10 2020-06-10 [facility], 1.2.840.1 [id number] 11037 Methodi 21:27:49 21:27:49 Encounter Konrad S. 31932.1.[address] 3.430.2.7 Hospit a .3.249878 l .8 2020-06-10 2020-06-10 Travel 1.2.840.1 1.2.667.581 [id number] 725087 Methodi 00:00:00 00:00:[address] 3.430.2.7 0.2.7.3.698 Ho spita .3.339578 084.8 l .8 2020-06-08 2020-06-08 Travel 1.2.840.1 1.2.154.220 3648 842488 Methodi 00:00:00 00:00:[address] 3.430.2.7 0.2.7.3.698 Ho spita .3.486547 084.8 l .8 2020-06-01 2020-06-01 [facility]phone [facility] 1.2.666.586 1514 3616 Univers 00:00:00 00:00:00 Geraldo Flaherty 350.1.13.10 [place] [phone] Nm dical nal 059 [facility] 2020-05-25 2020-05-25 Office [facility] 1.2.840.114 [id number] Univers 14:27:03 15:53:37 Visit Geraldo Flaherty 350.1.13.10 [place] [phone] Nm dical nal [address] [place] [address] 2020-05-25 2020-05-25 [facility] [id number] Univers 15:00:00 15:00:00 GERALDO contreras [facility] 2020-05-21 2020-05-21 [facility] [id number] Univers 14:15:00 14:15:00 DELMAR contreras [facility] 2020-05-21 2020-05-21 Ancillary Qiana Romeo [facility] 1.2.840.114 [id number] Univers 12:32:23 13:17:23 Visit Amie Vanegas 350.1.13.1 0 ity of [place] [phone] [facility] [address] 2020-05-21 2020-05-21 [facility] 1.2.746.308 [id number] 6094 Univers 12:32:45 12:47:45 Visit Delmar SERRATO 350.1.13.10 i ty of [place] [phone] [facility] [address] 2020-05-21 2020-05-21 Orders Doctor BRYAN 1.2.840.114 [id number] Univers 00:00:00 00:00:00 Only Unassigned, KAIT 350.1.13.10 ity of [place] [facility] 4.2.7.2.686 [place] [phone] [facility] [address] 2020-05-17 2020-05-17 Travel 1.2.840.1 1.2.481.944 4740 004320 Methodi 00:00:00 00:00:[address] 3.430.2.7 0.2.7.3.698 Ho spita .3.215668 084.8 l .8 2020-03-16 2020-03-16 [facility] 1.2.840.114 [id number] Univers 06:27:00 10:38:00 Encounter Jed Flaherty 350.1.13.10 [place] Surgical [phone] [facility] [address] 2020-03-16 2020-03-16 Orders Doctor BRYAN 1.2.840.114 [id number] Univers 00:00:00 00:00:00 Only Unassigned, KAIT 350.1.13.10 ity of [place] [facility] 4.2.7.2.686 [place] [id number] [facility] [address] [place] 2020-03-15 2020-03-15 [facility] 1.2.840.114 [id number] Univers 12:45:00 23:59:00 Encounter Jed Flaherty 350.1.13.10 [place] [phone] [facility] [address] 2020-03-15 2020-03-15 Prizer Hand Sony, Radha Lab Main [facility] 1.2.8 40.114 [id number] Univers 13:22:26 13:37:26 Visit Jed Coppola 350.1.13.10 [place] [phone] Nm dical nal [address] Building 2020-03-15 2020-03-15 Laboratory Only, Adc Test [facility] 1.2.840. 114 [id number] Univers 13:19:31 13:34:31 Only Jed Coppola 350.1.13.10 [facility] 4.2.7.2.686 [facility] [phone] [facility] [address] 2020-03-15 2020-03-15 Outpatient Feliciano [facility]A [facility] [id number] [facility] 12:15:00 12:15:00 JED [facility] 2020-03-08 2020-03-08 ANTON Alex PM&R [facility] [id number] [place] 08:30:00 08:30:00 t; Albina VILLAFUERTE ysici CHRISTO Leyva M.D. 2020-02-04 2020-02-04 Outpatient [facility] [id number] Univers 09:30:00 09:30:00 [facility] 2020-01-29 2020-01-29 [facility] [id number] [place] 00:00:00 00:00:00 KONRAD 627 Method i 2020-01-29 2020-01-29 [facility] [id number] [place] 00:00:00 00:00:00 KONRAD [address] 2020-01-25 2020-01-28 Inpatient HCAPM JESSICA [id number] [facility] 11:31:00 02:20:18 24 Sylvia alejandre [facility] 2019-12-15 2019-12-15 Outpatient Feliciano TIWARI [facility] [id number] Univers 11:00:00 11:00:00 HELEN [facility] 2019-12-03 2019-12-03 Outpatient Feliciano HILL [facility] [id number] Univers 10:30:00 10:30:00 MANAV [facility] 2019-11-05 2019-11-[address] [facility] [id number] [place] 05:21:00 12:39:00 SHARAN Scruggs [facility] 2019-09-26 2019-10-21 Office [place] [facility] 1.2.840. 114 [id number] Univers 15:30:31 21:51:55 Visit Danielle King Michelle Gómez HEALTH 350.1.13.1 0 ity of [place] [phone] [address] 2019-10-12 2019-10-12 Outpatient [facility] PDPEXNR OVR COH 00:00:00 00:00:00 [id number] 2019-10-07 2019-10-07 [facility] [address] 09:00:00 23:59:[address] [facility] 2019-09-26 2019-09-26 Outpatient [facility] [id number] Univers 16:00:00 16:00:00 DANIELLE contreras [facility] 2019-09-09 2019-09-09 [facility] [id number] [place] 00:00:00 00:00:00 KONRAD 274 Method i 2019-09-09 2019-09-09 [facility] [id number] [place] 00:00:00 00:00:00 KONRAD 805 Method i 2019-09-09 2019-09-09 [facility]patient [facility] [id number] [place] 00:00:00 00:00:00 KONRAD 277 Method i 2019-09-03 2019-09-03 [facility] 1.2.746.313 [id number] 7038 Univers 15:15:59 15:55:48 Visit Olman Hurtado [facility] 350.1.13.10 it y of Surgical 4.2.7.2.686 [place] as Specialti [phone] Nm dical 198 [facility] 2019-09-03 2019-09-03 Outpatient Feliciano STUART [facility] [id number] Univers 15:30:00 15:30:00 OLMAN contreras [facility] 2019-09-01 2019-09-01 Outpatient Feliciano STUART [facility] [id number] Univers 13:45:00 13:45:00 OLMAN contreras [facility] 2019-09-01 2019-09-01 [facility] [id number] [place] 00:00:00 00:00:00 KONRAD 795 Method i 2019-09-01 2019-09-01 Outpatient MARCUS [facility] [id number] [place] 00:00:00 00:00:00 KONRAD 698 Method i 2019-08-14 2019-08-14 [facility] [id number] Univers 13:33:10 23:59:00 OLMAN ity [facility] 2019-08-14 2019-08-14 [facility] 1.2.840.114 [id number] Univers 13:33:00 23:59:00 Encounter Olman Hurtado [place] 350.1.13.10 ity of [place].2.[place] [facility] [phone] [facility] [address] [place] 2019-08-11 2019-08-11 Orders Doctor BRYAN 1.2.840.114 [id number] Univers 00:00:00 00:00:00 Only Unassigned, KAIT 350.1.13.10 it[place] [facility] 4.2.7.2.686 [place] [id number] [facility] [address] [place] 2019-08-01 2019-08-01 [facility] 1.2.840.114 [id number] Univers 00:00:00 00:00:00 Olman Hurtado [facility] 350.1.13.10 it y of Surgical 4.2.7.2.686 [place] Specialti [phone] Nm dical es 198 [facility] 2019-07-29 2019-07-29 Outpatient Feliciano [facility] [id number] Univers 16:15:00 16:15:00 BAKARI ity of [facility] 2019-07-26 2019-07-26 Orders Doctor BRYAN 1.2.840.114 [id number] Univers 00:00:00 00:00:00 Only Unassigned, KAIT 350.1.13.10 ity of [place] [facility] 4.2.7.2.686 [place] [id number] [facility] [address] [place] 2019-07-17 2019-07-17 Outpatient Feliciano CP[facility]A [facility] [id number] Univers 07:41:46 23:59:00 JED itfrancisco javier of [facility] 2019-07-17 2019-07-17 [facility] 1.2.840.114 [id number] Univers 07:41:00 23:59:00 Encounter Jed Popeye [place] 350.1.13.10 [place] [phone] [facility] [address] [place] 2019-06-26 2019-06-26 Telephone [facility] 1.2.840.114 [id number] Univers 00:00:00 00:00:00 Olman L Health 350.1.13.10 it y of Surgical 4.2.7.2.686 [place] Specialti [phone] Nm dical es 198 [facility] 2019-05-15 2019-05-15 [facility] 1.2.840.114 [id number] Univers 00:00:00 00:00:00 Olman L Health 350.1.13.10 it y of Surgical 4.2.7.2.686 [place] Special[place] [phone] Nm dical es 198 [facility] 2019-05-05 2019-05-05 [facility] 1.2.840.114 [id number] Univers 00:00:00 00:00:00 Olman L Health 350.1.13.10 it y of Surgical 4.2.7.2.686 [place] Special[place] 666.9164209 Nm dical es 198 [facility] 2019-04-16 2019-04-16 Laboratory Pc, Adc Echo Room 1 - [facility] 1 .2.840.114 [id number] Univers 07:58:59 08:40:23 Only Greg Samuel 350.1.13.10 [place] 283.4868933 Nm dical nal 059 [facility] 2019-04-16 2019-04-16 Outpatient R JIMMIE [facility] [id number] Univers 08:00:00 08:00:00 GREG contreras o f [facility] 2019-04-09 2019-04-09 Office [facility] 1.2.840.114 [id number] Univers 09:48:56 10:42:21 Visit Greg [place] 350.1.13.10 [place] ess[place] [phone] Nm dical nal 059 [facility] 2019-04-07 2019-04-09 Office [facility] 1.2.708.924 [id number] Univers 14:00:40 10:20:20 Visit Olman Miller 350.1.13.10 it y of Surgical 4.2.7.2.686 [place] Special[place] 175.5375902 Nm dical es 198 [facility] 2019-04-07 2019-04-07 Outpatient [facility] [id number] Univers 14:44:26 23:59:00 OLMAN ity of [facility] 2019-04-07 2019-04-07 [facility] 1.2.840.114 [id number] Univers 14:44:00 23:59:00 Encounter Olman Miller 350.1.13.10 ity of Surgical 4.2.7.2.686 [place] Specialti [phone] Nm dical es 809 [facility] 2019-04-07 2019-04-07 Orders Doctor BRYAN 1.2.840.114 [id number] Univers 00:00:00 00:00:00 Only Unassigned, KAIT 350.1.13.10 ity [place] [facility] 4.2.7.2.686 [place] as [phone] [address] 2019-04-07 2019-04-07 Telephone [facility] 1.2.840.114 [id number] Univers 00:00:00 00:00:00 Olman Miller 350.1.13.10 it y of Surgical 4.2.7.2.686 [place] Special[place] 196.7454274 Nm dical es 198 [facility] 2019-03-11 2019-03-11 Orders Doctor BRYAN 1.2.840.114 [id number] Univers 00:00:00 00:00:00 Only Unassigned, KAIT 350.1.13.10 ity of [place] [facility] 4.2.7.2.686 [place] as [phone] [address] 2019-01-01 2019-01-01 Appointmen ANTON KEN UTP [id number] [place] 14:00:00 14:00:00 t; BREANA KEN M.D. Physici ZORAN, ans M.D. 2018-10-04 2018-10-04 Office CELE Tiwari 1.2.840.114 [id number] 09:32:10 10:24:11 Visit Tianna AMBULATOR 350.1.13.21 Shawna Y 0.2.7.2.686 [id number] [facility] 2018-10-04 2018-10-04 Office CELE Tiwari 1.2.840.[id number] [place] [address] 09:32:10 10:24:11 Visit Tianna AMBULATOR 350.1.13.21 [place] Shawna Y 0.2.7.2.686 of [id number] [facility] 800 e 2018-07-17 2018-07-17 Appointmen CIELO FOWLER UTP UTP [id number] [place] 11:00:00 11:00:00 t; Albina FOWLER M.D. [facility] 2018-04-03 2018-04-03 Outpatient [facility] [id number] [place] 00:00:00 00:00:00 [facility] 2018-03-12 2018-03-12 [facility] [id number] Common 13:30:00 13:30:00 t [facility] 2018-01-09 2018-01-09 Outpatient [facility] [id number] [place] 00:00:00 00:00:00 [facility] 2017-12-26 2017-12-26 Outpatient [facility] [id number] [place] 00:00:00 00:00:00 [facility] 2017-12-25 2017-12-25 Outpatient [facility] [id number] May[place] 00:00:00 00:00:00 Health 2017-11-21 2017-11-21 Outpatient [facility] [id number] [place] 12:12:10 12:12:10 Health 2017-11-19 2017-11-19 [facility] [id number] Common 09:00:00 09:00:00 t Bone Bone and Spiri t and Joint [facility] 2017-11-16 2017-11-16 Outpatient [facility] [id number] Mayen 08:30:23 08:30:23 Health 2017-11-12 2017-11-12 Outpatient [facility] [id number] Common 14:22:00 14:22:00 t Bone Bone and Spiri t and Joint [facility] 2017-11-12 2017-11-12 Outpatient [facility] [id number] Gamaliel 00:00:00 00:00:00 [facility] 2017-11-08 2017-11-08 Outpatient [facility] [id number] [place] 00:00:00 00:00:00 [facility] 2017-11-05 2017-11-05 Outpatient [facility] [id number] Common 10:03:00 10:03:00 t Bone Bone and Spiri t and Joint [facility] 2017-10-29 2017-10-29 Outpatient [facility] [id number] Common 08:00:00 08:00:00 t Bone Bone and Spiri t and [facility] 2017-10-11 2017-10-11 Outpatient [facility] [id number] [place] 09:34:54 09:34:54 [facility] 2017-10-10 2017-10-10 Outpatient [facility] [id number] [place] 00:00:00 00:00:00 [facility] 2017-10-03 2017-10-03 Outpatient [facility] [id number] [place] 00:00:00 00:00:00 [facility] 2017-09-28 2017-09-28 Outpatient [facility] [id number] [place] 06:43:36 06:43:36 [facility] 2017-09-28 2017-09-28 Outpatient [facility] [id number] [place] 00:00:00 00:00:00 [facility] 2017-09-28 2017-09-28 Outpatient [facility] [id number] Mayen 00:00:00 00:00:00 [facility] 2017-09-26 2017-09-26 Outpatient [facility] [id number] Mayen 13:42:42 13:42:42 Health 2017-09-26 2017-09-26 Outpatient [facility] [id number] Gamal[place] 00:00:00 00:00:00 [facility] 2017-09-21 2017-09-21 Outpatient [facility] [id number] [place] 00:00:00 00:00:00 [facility] 2017-09-19 2017-09-19 Outpatient [facility] [id number] Mayen 14:50:01 14:50:01 [facility] 2017-09-19 2017-09-19 Outpatient [facility] [id number] May[place] 13:16:35 13:16:35 [facility] 2017-09-12 2017-09-12 Outpatient [facility] [id number] Mayen 00:00:00 00:00:00 [facility] 2017-08-24 2017-08-24 Outpatient [facility] [id number] Mayen 09:22:38 09:22:38 [facility] 2017-07-27 2017-07-27 Outpatient [facility] [id number] Mayen 10:35:47 10:35:47 [facility] 2017-07-05 2017-07-05 Outpatient [facility] [id number] May[place] 12:15:23 12:15:23 [facility] 2017-07-03 2017-07-03 Outpatient [facility] [id number] Mayen 00:00:00 00:00:00 [facility] 2017-05-23 2017-05-23 Outpatient [facility] [id number] Mayen 13:13:44 13:13:44 [facility] 2017-05-02 2017-05-02 Outpatient [facility] [id number] Mayen 00:00:00 00:00:00 [facility] 2017-04-25 2017-04-25 Outpatient [facility] [id number] Mayen 09:01:53 09:01:53 [facility] 2017-04-17 2017-04-17 Outpatient [facility] [id number] May[place] 06:05:00 06:05:00 [facility] 2017-04-17 2017-04-17 Outpatient [facility] [id number] May[place] 00:00:00 00:00:00 [facility] 2017-04-16 2017-04-16 Outpatient [facility] [id number] Mayen 00:00:00 00:00:00 [facility] 2017-04-13 2017-04-13 Outpatient [facility] [id number] Mayen 09:12:04 09:12:04 [facility] 2017-04-03 2017-04-03 Outpatient [facility] [id number] Mayen 00:00:00 00:00:00 [facility] 2017-03-27 2017-03-27 Outpatient [facility] [id number] Mayen 06:15:00 06:15:00 [facility] 2017-03-27 2017-03-27 Outpatient [facility] [id number] Mayen 00:00:00 00:00:00 [facility] 2017-03-19 2017-03-19 Outpatient [facility] [id number] Mayen 13:22:16 13:22:16 [facility] 2017-03-19 2017-03-19 Outpatient [facility] [id number] Maeyn 00:00:00 00:00:00 [facility] 2017-03-12 2017-03-12 Outpatient [facility] [id number] Mayen 13:45:55 13:45:55 [facility] 2017-03-09 2017-03-09 Outpatient [facility] [id number] Mayen 00:00:00 00:00:00 [facility] 2017-03-08 2017-03-08 Outpatient [facility] [id number] Mayen 16:03:22 16:03:22 [facility] 2017-03-08 2017-03-08 Outpatient [facility] [id number] Mayen 14:45:05 14:45:05 [facility] 2017-02-23 2017-02-23 Outpatient [facility] [id number] Mayen 10:41:02 10:41:02 [facility] 2017-02-23 2017-02-23 Outpatient [facility] [id number] Mayen 08:11:53 08:11:53 [facility] 2017-02-23 2017-02-23 Outpatient [facility] [id number] Mayen 07:53:43 07:53:43 [facility] 2017-02-23 2017-02-23 Outpatient [facility] [id number] Mayen 00:00:00 00:00:00 [facility] 2017-02-08 2017-02-08 Outpatient [facility] [id number] Mayen 12:32:00 12:32:00 [facility] 2017-01-24 2017-01-24 Outpatient [facility] [id number] Mayen 00:00:00 00:00:00 [facility] 2017-01-23 2017-01-23 Outpatient [facility] [id number] Mayen 12:16:30 12:16:30 [facility] 2017-01-22 2017-01-22 Outpatient [facility] [id number] Mayen 11:30:20 11:30:20 [facility] 2017-01-15 2017-01-15 Outpatient [facility] [id number] [place] 00:00:00 00:00:00 [facility] 2017-01-09 2017-01-09 Outpatient [facility] [id number] May[place] 09:09:26 09:09:26 [facility] 2017-01-04 2017-01-04 Outpatient [facility] [id number] [place] 14:36:02 14:36:02 [facility] 2017-01-02 2017-01-02 Outpatient [facility] [id number] Mayen 08:36:10 08:36:10 [facility] 2016-12-27 2016-12-27 Outpatient [facility] [id number] Mayen 11:33:15 11:33:15 [facility] 2016-12-22 2016-12-22 Outpatient [facility] [id number] Mayen 09:02:45 09:02:45 [facility] 2016-12-11 2016-12-11 Outpatient [facility] [id number] May[place] 09:01:19 09:01:19 [facility] 2016-12-11 2016-12-11 Inpatient [facility] [id number] Mayen 14:16:44 00:00:00 [facility] 2016-12-07 2016-12-07 Outpatient [facility] [id number] Mayen 00:00:00 00:00:00 [facility] 2016-12-06 2016-12-06 Outpatient [facility] [id number] Mayen 14:40:31 14:40:31 [facility] 2016-12-04 2016-12-04 Outpatient [facility] [id number] May[place] 10:31:01 10:31:01 [facility] 2016-11-27 2016-11-27 Outpatient [facility] [id number] Mayen 00:00:00 00:00:00 [facility] 2016-11-20 2016-11-20 Outpatient [facility] [id number] Mayen 00:00:00 00:00:00 [facility] 2016-11-20 2016-11-20 Outpatient [facility] [id number] [place] 00:00:00 00:00:00 [facility] 2016-11-17 2016-11-17 Outpatient [facility] [id number] [place] 00:00:00 00:00:00 [facility] 2016-10-12 2016-10-12 Outpatient [facility] [id number] [place] 00:00:00 00:00:00 [facility] 2016-10-10 2016-10-10 Outpatient [facility] [id number] [place] 00:00:00 00:00:00 [facility] 2016-10-10 2016-10-10 Outpatient [facility] [id number] [place] 00:00:00 00:00:00 [facility] 2016-10-10 2016-10-10 Outpatient [facility] [id number] [place] 00:00:00 00:00:00 [facility] 2016-09-15 2016-09-15 Outpatient [facility] [id number] [place] 00:00:00 00:00:00 [facility] 2016-08-30 2016-08-30 Outpatient [facility] [id number] [place] 09:44:27 09:44:27 Health Results Test Test Test Comments Results Result Source Description Time Comments RAD SPINE, 2022-05- Release to CERVICAL, 04 patient->Imme COMPLETE, WITH 12:33:[address] [facility] albin JACKSON : location is 1975 Sex: preferred?->M F cNairInsuranc e Company ID FINAL = [id number]; REPORT PATIENT ID: Insurance [id number] Radiographs of Company Name the cervical spine 7 = COMMUNITY views with bilateral HEALTH obliques, flexion and CHOICE; extension images. Insurance Radiographs of the Company Phone spine for scoliosis. 10 Number = ; images of the spine. Policy Number Radiographs of the = [id number] lumbar spine 7 views with bilateral obliques, flexion and extension images HISTORY: PainCOMPARISON: None available. FINDINGS:Bones:No acute displaced fracture. No scoliosis is seen. Grade 1 anterior listhesis of L5 with respect S1 Joints:Patient status post anterior fusion from C4 through C7. The surgical hardware is intact without evidence of failure or loosening. Patient status post posterior fusion from L4 through S1. The surgical hardware is intact without evidence of failure or loosening. Scattered degenerative change about the cervical spine. No subluxation on the flexion or extension images. No neural foraminal narrowing. Scattered degenerative change about the lumbar spine. No subluxation on the flexion or extension images. Soft tissues:The soft tissues appear unremarkable. IMPRESSION: No scoliosis is seen. Grade 1 anterior listhesis of L5 with respect S1 Patient status post anterior fusion from C4 through C7. The surgical hardware is intact without evidence of failure or loosening. Patient status post posterior fusion from L4 through S1. The surgical hardware is intact without evidence of failure or loosening. Signed: Ronny Lam MDReport Verified Date/Time: 05/23/2022 12:33:35 Reading Location: [facility] Reading Room [address] [place] [address] , SPINE, 2022-05- Release to SCOLIOSIS 04 patient->Imme STUDY, 2 OR 3 12:33:00 diateWhich [facility] CENTERName: albin JACKSON : location is 1975 Sex: preferred?->M F cNairInsuranc e Company ID FINAL = [id number]; REPORT PATIENT ID: Insurance [id number] Radiographs of Company Name the cervical spine 7 = COMMUNITY views with bilateral HEALTH obliques, flexion and CHOICE; extension images. Insurance Radiographs of the Company Phone spine for scoliosis. 10 Number = ; images of the spine. Policy Number Radiographs of the = [id number] lumbar spine 7 views with bilateral obliques, flexion and extension images HISTORY: PainCOMPARISON: None available. FINDINGS:Bones:No acute displaced fracture. No scoliosis is seen. Grade 1 anterior listhesis of L5 with respect S1 Joints:Patient status post anterior fusion from C4 through C7. The surgical hardware is intact without evidence of failure or loosening. Patient status post posterior fusion from L4 through S1. The surgical hardware is intact without evidence of failure or loosening. Scattered degenerative change about the cervical spine. No subluxation on the flexion or extension images. No neural foraminal narrowing. Scattered degenerative change about the lumbar spine. No subluxation on the flexion or extension images. Soft tissues:The soft tissues appear unremarkable. IMPRESSION: No scoliosis is seen. Grade 1 anterior listhesis of L5 with respect S1 Patient status post anterior fusion from C4 through C7. The surgical hardware is intact without evidence of failure or loosening. Patient status post posterior fusion from L4 through S1. The surgical hardware is intact without evidence of failure or loosening. Signed: Ronny Lam MDReport Verified Date/Time: 05/23/2022 12:33:35 Reading Location: [facility] Reading Room [address] [place] [address] , SPINE, 2022-05- Release to LUMBAR, 04 patient->Imme COMPLETE, WITH 12:33:00 diateWhich [facility] CENTERName: albin JACKSON : location is 1975 Sex: preferred?->M F cNairInsuranc e Company ID FINAL = [id number]; REPORT PATIENT ID: Insurance [id number] Radiographs of Company Name the cervical spine 7 = COMMUNITY views with bilateral HEALTH obliques, flexion and CHOICE; extension images. Insurance Radiographs of the Company Phone spine for scoliosis. 10 Number = ; images of the spine. Policy Number Radiographs of the = [id number] lumbar spine 7 views with bilateral obliques, flexion and extension images HISTORY: PainCOMPARISON: None available. FINDINGS:Bones:No acute displaced fracture. No scoliosis is seen. Grade 1 anterior listhesis of L5 with respect S1 Joints:Patient status post anterior fusion from C4 through C7. The surgical hardware is intact without evidence of failure or loosening. Patient status post posterior fusion from L4 through S1. The surgical hardware is intact without evidence of failure or loosening. Scattered degenerative change about the cervical spine. No subluxation on the flexion or extension images. No neural foraminal narrowing. Scattered degenerative change about the lumbar spine. No subluxation on the flexion or extension images. Soft tissues:The soft tissues appear unremarkable. IMPRESSION: No scoliosis is seen. Grade 1 anterior listhesis of L5 with respect S1 Patient status post anterior fusion from C4 through C7. The surgical hardware is intact without evidence of failure or loosening. Patient status post posterior fusion from L4 through S1. The surgical hardware is intact without evidence of failure or loosening. Signed: Ronny Lam MDReport Verified Date/Time: 05/23/2022 12:33:35 Reading Location: [facility] Reading Room [address] [place] [address] Spine 2020-03- EXAM: Spine Thoracic wo [facility] thoracic wo 05 contrast MRIDATE: contrast [id number] 14:45:00 03/26/2020 14:47 CSTINDICATION: -Mid back painCOMPARISON: [...] Thoracic 4+ 05 2 VIEWSDATE: 03/26/2020 views [id number] 13:45:00 13:31 CSTINDICATION: - M54.9 Dorsalgia, unspecifiedCOMPARISON: [...] [facility] wo contrast 05 WITHOUT CONTRASTDATE: 48791 13:31:00 03/26/2020 13:35 CSTINDICATION: M54.5 Low back [...] thesubarticular zone.--This report was dictated by a Direct Support Worker/Fellow/Physici an [employer]. Ihave personallyreviewed the images as well as the interpretation and agree with the findings.Read by: Linus Argueta MD Resident/Fellow/Physici anAssistant: Linus Argueta MDDictated Date/time: 03/26/20 14:06Electronically Signed by: Vinh Ohara MD 03/29/2112:46FINAL REPORT MRI Spine thoracic wo contrast [id number] 2020-03-26 13:30:00 Test Item Value Reference Range Interpretation Comme nts Spine thoracic wo contrast MRI (test code = Cancel Reason: Duplicat e Order Spine thoracic wo contrast MRI) [place] [facility]icians[place] TIME OR (NON-REPORTABLE)2020-03-16 16:12:46These images do not require a Radiology diagnostic report.[facility] CHEST 2 [id number] 21:13:01 No acute cardiopulmonary process is seen.PROCEDURE: [...] osseous lesion. Cervicothoracic anterior spinal fusionpartially visualized. [facility], Radiant Results Inft User - 03/15/2020 3:14 [...] fusionpartially visualized.IMPRESSIONNo acute cardiopulmonary process is seen. [facility]MR FOOT LEFT WO [id number] 14:02:55 HISTORY: ?Pain left foot pain. TECHNIQUE: [...] Otherwise normal MRI study of left foot. [facility], Radiant Results Inft [...] foot.2. Otherwise normal MRI study of left foot.[facility] [id number] 15:56:00Surgical Pathology Report Case: [id number] Authorizing Provider: Mai Delaney MD Collected: 08/14/2018 1452 Ordering Location: [facility] Endoscopy Received: 08/15/2018 0833 Services [...] (SEE COMMENT) Signing Pathologist Direct Phone Line: [phone] signed by Elsy Collier MD on 08/19/2018 at 3:56 PMA. The finding of increased intraepithelial lymphocytes alone is non-specific and may be associated a wide range of conditions, including celiac disease, bacterial overgrowth, nonsteroidal antiinflammatory drug damage, reaction to Helicobacter pyloriinfection, tropical sprue, and chronic inflammatory bowel disease. Clinical correlation is recommended. D. The finding of focal mildly increased intraepithelial lymphocytes in colonic mucosa is also non-specfic. The possible etiology includes drug, infectious, and automimmune disease including lymphocytic colitis. Clinical correlation is recommended. 99140 X 4, [id number] abdominal pain, LLQ abdominal pain A. Duodenum [...] name, accession number and "stomach" are four irregulartan soft tissue fragments ranging from 0.2-0.5 cm, [...] evaluated Immunohistochemistry technical testing was performed at [facility], Pathology Laboratory where it was developed and its performance characteristics weredetermined. It has not been cleared or approved [...] complexity clinical laboratory testing.RAD, ABDOMEN/KUB, 1 VIEW [id number] 16:12:00Reason for Exam:->epigastric abdominal painReason for Exam:->constipation, unspecified constipation typeFINAL REPORT Exam: Abdominal radiograph History: Constipation Comparison: None.Findings: Nonobstructive bowel gas pattern. Mild amount retained stool. Multiple surgical clips. Impression: No acute osseous abnormality Mild amount of retained stool Signed: Luisito Shafer MDReport Verified Date/Time: 04/16/2018 16:12:35 Notes Date/Time Note Provider Source 2020-01-25 11:39:00-00:00 [facility] ([facility]) EMERGENCY PROVIDER REPORT REPORT#:[id number] REPORT STATUS: Signed DATE:01/25/20 TIME:1139 PATIENT: TERESE JACKSON UNIT #: [id number] ROOM/BED: : 74 AGE: 44 SEX: F PCP PHYS: No Primar y or Family Physician SERVICE AUTHOR: Kyleigh Gillis MD * ALL edits or amendments must be made on the el epicurio/computer document * HPI-Back Pain 40 and Over General Initial Greet Date/Time 01/25/20 1133 Presentation Chief Complaint Pain, lumbar Sudden in Onset? Yes Free Text HPI Notes Free Text HPI Notes 44yo WF with PMH of chronic low back pain s/p nathan mbar fusion (2012) p/w lower back pain x 30 minutes. Onset while sitting on t oilet having bowel movement. Pain rated 10 out of 10 on pain scale. Exacerbat ed with movement. Unable to stand secondary to pain. Denies bowel or bladder incontinence. Had similar episode in August at 2019; treated as back spasm. No meds taken prior to coming to ER. Risk-Back Pain 40 and Over Risk Stratification )( Abdominal Aortic Aneurysm Risk factors review ed, No risk factors )( Thoracic Aortic Dissection Risk factors revie wed, No risk factors Review of Systems ROS Statements All systems rev neg except as marked. Focused Review of Systems Constitutional Denies: Chills, Fever, Lethargy. Respiratory Denies: Cough, non-productive, Cough, productive , Shortness of breath. Cardiovascular Denies: Chest pain, Syncope. GI Denies: Abdominal pain, Diarrhea, Nausea, Vomiti ng. Female Denies: Dysuria, Flank pain, Pelvic pain. Musculoskeletal Reports: Back pain. Denies: Extremity pain. Hematologic Denies: Bleeding, Bruising. Neurologic Denies: Bladder dysfunction, Bowel dysfunction, Change LOC, Dizziness, Focal weakness, Headache, Numbness, Slurred speech. Past Medical History - Adult Stated Complaint LOW BACK PAIN Allergies Coded Allergies: No Known Allergies (01/25/20) Smoking status for patients 13 years old or olde r: Unknown,if ever smoked Physical Exam Vital Signs Vital Signs First Documented: Result Date Time Pulse Ox 100 01/24 1132 B/P 186/114 01/24 1132 B/P Mean 138 01/24 1132 O2 Delivery Room air 01/24 1132 Temp 98.1 01/24 1132 Pulse 84 01/24 1132 Resp 18 01/24 1132 Last Documented: Result Date Time Pulse Ox 100 01/24 1132 B/P 186/114 01/24 1132 B/P Mean 138 01/24 1132 O2 Delivery Room air 01/24 1132 Temp 98.1 01/24 1132 Pulse 84 01/24 1132 Resp 18 01/24 1132 Review of Vital Signs Reviewed, Vital signs norm al Focused PE General/Const General/Const Awake, Alert Appearance/Presentation In pain. MS Neck Neck Atraumatic, Supple, No meningismus, Full r mary of motion, No swelling, Non-tender, No midline vertebral tend, No masses , No crepitus Resp/Chest Respiratory/Chest Breath sounds NL, Breath soun ds = bilat, No respiratory distress, No rales, No rhonchi, No wheezing Cardiovascular Cardiovascular Heart rate NL, Regular rhythm, H eart sounds NL, No murmurs, Peripheral circulation NL Abdomen/GI Abdomen/GI Soft, Non-tender, No guarding, No re bound, No distention, No palpable mass, No pulsatile mass MS Back Back Atraumatic, Inspection NL, Full range of m otion, Painless range of motion, Non-tender, No midline vertebral tend, N o paraspinal tenderness, No muscle spasm, Straight leg raise neg, No CVA ten derness MS Lower Extrem Lower Ext/Pelvis/MS Inspection NL, No swelling, Non-tender, No erythema, No deformity, Neurologic intact, Vascular intact, N o edema Skin Skin Color NL, Warm, Dry, Turgor NL Rectum Rectum/Perineum Blood - occult heme neg, Qualit y control passed, No gross blood, No fissures, No hemorrhoids, Sphincter to ne NL Neurologic Neurologic Oriented X3, Speech NL, No motor def icits, No sensory deficits, Reflexes equal bilat Re-Evaluation MDM Free Text MDM Notes Free Text MDM Notes A/P: 44yo WF with PMH as abo ve p/w lower back pain. Will give meds and reassess ADDENDUM Time: 1300 Pt re-assessed; back pain somewhat improved, but remains bad. Will give PO Edmonds. Time: 1400 Pt re-assessed; symptoms improved. Ok for DC anil e with PCP follow-up. ED Course Medication(s) Ordered Medication(s) Ordered: Autonomic Drugs Sig/Neelam Start time Last Medication Dose Route Stop Time Status Admin Methocarbamol 500 MG X1ED STA 01/24 1139 DC PO 01/24 1140 1146 Central Nervous System Agents Sig/Neelam Start time Last Medication Dose Route Stop Time Status Admin Hydrocodone Bitart/ 1 TAB X1ED STA 01/24 1300 D C 01/24 Acetaminophen PO 01/24 1301 1324 Diazepam 5 MG X1ED STA 01/24 1139 DC 01/24 PO 01/24 1140 1146 Ketorolac 60 MG X1ED STA 01/24 1138 DC 01/24 Tromethamine IM 01/24 1139 1147 Patient Discharge Departure Vital Signs/Condition Vital Signs First Documented: Result Date Time Pulse Ox 100 01/24 1132 B/P 186/114 01/24 1132 B/P Mean 138 01/24 1132 O2 Delivery Room air 01/24 1132 Temp 98.1 01/24 113 Pulse 84 01/24 1132 Resp 18 01/24 1132 Last Documented: Result Date Time Pulse Ox 100 01/24 1132 B/P 186/114 01/25 1132 B/P Mean 138 01/25 1132 O2 Delivery Room air 01/25 1132 Temp 98.1 01/25 1132 Pulse 84 01/25 1132 Resp 18 01/25 1132 All vital signs available at the time of this en try have been reviewed. Clinical Impression Clinical Impression Primary Impression: Spasm of muscle of lower sidney k Secondary Impressions: S/P lumbar fusion Disposition Decision Discharge )( Discharged to Home Yes )( Time 1401 )( Date 01/25/20 Discharge/Care Plan Counseled Regarding Diagnosi s, Prescriptions, Need for follow-up, When to return to ED (Auto) Prescriptions Current Visit Scripts methocarbamoL (ROBAXIN) 1,000 MG PO QID PRN PRN MUSCLE SPASMS/PAIN 30 Days #30 TABS IBUPROFEN (MOTRIN) 600 MG PO QID PRN PRN PAIN IBUPROFEN (MOTRIN) 600 MG PO QID PRN PRN PAIN # 30 TABS Patient Instructions ED LUMBAR SPRAIN/STRAIN, ED Spasm Back No Trauma Referrals Pain and Health Management Discharge Note I have spoken with the patie nt and/or caregivers. I have explained the patient's condition, diagnoses and zia atment plan based on the information available to me at this time. I have answered the patient's and/ or caregiver's questions and addressed any concerns. The patient and/or careg zeenat have as good an understanding of the patient 's diagnosis, condition and treatment plan as can be expected at this point. The vital signs have bee n stable. The patient's condition is stable and appr opriate for discharge from the emergency department. The patient will pursue further outpatient evalu ation with the primary care physician or other designated or consulting phys ician as outlined in the discharge instructions. The patient and/or caregivers are agreeable to this plan of care and follow-up instructions have been exp lained in detail. The patient and/or caregivers have received these instructio ns in written format and have expressed an understanding of the discharge inst ructions. The patient and/or caregivers are aware that any significant change in condition or worsening of symptoms should prompt an immediate return to [facility] or the closest emergency department or a call to 911. at 1648 RPT #: [id number] END OF REPORT
[2022-07-23] MEDS ORDERED: CYCLOBENZAPRINE 10 MG TAB ONE (12:41)
[2022-07-23] MEDS ORDERED: ACETAMINOPHEN 500 MG TAB ONE (12:41)
[2022-07-23] MEDS ORDERED: LIDOCAINE 4% PATCH ONE (12:42)
--- NOTE | 2022-07-23 14:12 | ER ---
Nurse's Notes [facility] Name: Mildred Caldwell Age: 46 yrs Sex: Female : 1975 Arrival Date: 07/23/2022 Time: 12:12 Bed 10 Private MD: Diagnosis: Low back pain Presentation: 07/23 12:25 Chief complaint: EMS states: Toned out for back pain, hx of chronic back pain. jl7 Coronavirus screen: At this time, the client does not indicate any symptoms associated with coronavirus-19. Ebola Screen: No symptoms or risks identified at this time. Initial Sepsis Screen: Does the patient meet any 2 criteria? No. Patient's initial sepsis screen is negative. Does the patient have a suspected source of infection? No. Patient's initial sepsis screen is negative. Risk Assessment: Do you want to hurt yourself or someone else? Patient reports no desire to harm self or others. Onset of symptoms is unknown. Care prior to arrival: Medication(s) given: toradol IV initiated. in the right antecubital area. 12:25 Method Of Arrival: EMS: [facility] jl7 12:25 Acuity: JENNIFER 4 jl7 Triage Assessment: 12:29 General: Appears in no apparent distress. uncomfortable, Behavior is cooperative, jl7 anxious, crying. Pain: Complains of pain in back Pain currently is 10 out of 10 on a pain scale. Neuro: Level of Consciousness is awake, alert, obeys commands, Oriented to person, place, time, situation. Cardiovascular: Patient's skin is warm and dry. Respiratory: Airway is patent Respiratory effort is even, unlabored, Respiratory pattern is regular, symmetrical. Derm: Skin is pink, warm \T\ dry. 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 - Social history:: Smoking status: Patient denies any tobacco usage or history of. Screenin:28 [facility] ED Fall Risk Assessment (Adult) History of falling in the last 3 months, nj1 including since admission No falls in past 3 months (0 pts) Confusion or Disorientation No (0 pts) Intoxicated or Sedated No (0 pts) Impaired Gait Yes (1 pt) Mobility Assist Device Used No (0 pt) Altered Elimination No (0 pt) Score/Fall Risk Level 0 - 2 = Low Risk Oriented to surroundings, Maintained a safe environment, Hourly rounding (assess needs \T\ fall precautionary measures) done. Abuse screen: Denies threats or abuse. Denies injuries from another. Nutritional screening: No deficits noted. Tuberculosis screening: No symptoms or risk factors identified. Assessment: 14:28 Reassessment: Patient appears in no apparent distress at this time. Patient and/or nj1 family updated on plan of care and expected duration. Pain level reassessed. Patient is alert, oriented x 3, equal unlabored respirations, skin warm/dry/pink. Vital Signs: 12:25 BP 135 / 109; Pulse 72; Resp 17; Temp 99; Pulse Ox 97% ; Pain 10/10; jl7 13:50 Pain 10/10; nj1 14:28 BP 120 / 73; Pulse 70; Resp 18; Pulse Ox 98% on R/A; Pain 8/10; nj1 12:25 Pain Scale: Adult 7 13:50 Pain Scale: Adult [facility] 14:28 Pain Scale: Adult [facility] ED Course: 12:17 Patient arrived in ED. ct1 12:17 Carol Gruber, TACHO is Primary Nurse. 7 12:19 Elda Coyle FNP is PHCP. 7 12:19 Gerry Klein MD is Attending Physician. 7 12:29 Triage completed. jl7 12:29 Arm band placed on right wrist. jl7 13:50 Patient has correct armband on for positive identification. Bed in low position. Call [facility] light in reach. Side rails up X 1. 13:58 Notified ED physician of other Pain 11/28. nj1 14:28 No provider procedures requiring assistance completed. nj1 14:28 IV discontinued, intact, bleeding controlled. ct1 Administered Medications: 12:42 Drug: Acetaminophen PO 1000 mg Route: PO; 3 14:28 Follow up: Response: No adverse reaction [facility] 12:43 Drug: Lidoderm Topical Patch 5 % (700 mg/patch) 2 patches Route: Topical; Site: kr3 affected area; 14:28 Follow up: Response: No adverse reaction nj1 12:43 Drug: Cyclobenzaprine PO 10 mg Route: PO; kr3 14:28 Follow up: Response: No adverse reaction nj1 Medication: 14:28 VIS not applicable for this client. nj1 Outcome: 14:11 Discharge ordered by . bs3 14:28 Discharged to home via wheelchair, with family. nj1 14:28 Condition: stable 14:28 Discharge instructions given to patient, Instructed on discharge instructions, follow up and referral plans. medication usage, safety practices, Demonstrated understanding of instructions, follow-up care, medications, Prescriptions given X 3. 14:37 Patient left the ED. nj1 Signatures: Carol Gruber RN RN jl7 Elda Coyle FNP SCHEDULE SUPERVISOR jh7 Nancy Ibrahim RN RN kr3 Gerry Klein MD MD bs3 Victorina Rothman RN RN nj1
--- NOTE | 2022-07-23 14:12 | EDPHYS ---
Physician Documentation [facility] Name: Mildred Caldwell Age: 46 yrs Sex: Female : 1975 Arrival Date: 07/23/2022 Time: 12:12 Bed 10 Private MD: ED Physician Gerry Klein HPI: 07/23 14:32 This 46 yrs old Female presents to ER via EMS with complaints of Back Pain. bs3 14:32 46-year-old female history of diabetes, hypertension, chronic back pain presents with bs3 low back pain she was getting her grandson out of the bathtub when she pulled her back out denies numbness tingling or weakness she notes severe pain she did not take anything prior to arrival she denies numbness tingling or weakness in her extremities she denies urinary or bowel incontinence of note she is scheduled to follow-up at [facility] for a spinal pain pump, she has already had surgery. 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 - Social history:: Smoking status: Patient denies any tobacco usage or history of. ROS: 14:34 Constitutional: Negative for fever, chills bs3 14:34 All other systems are negative. Exam: 14:34 Constitutional: This is a well developed, well nourished patient who is awake, alert, bs3 and in no acute distress. Head/Face: Normocephalic, atraumatic. Eyes: Pupils equal round and reactive to light, extra-ocular motions intact. Lids and lashes normal. ENT: mmm, no posterior phyarngeal erythema Neck: Trachea midline, no thyromegaly, no neck stiffness Chest/axilla: Normal chest wall appearance and motion. Nontender with no deformity. No lesions are appreciated. Cardiovascular: Regular rate and rhythm with a normal S1 and S2. symmetric pulses in upper extremities Respiratory: Lungs have equal breath sounds bilaterally, clear to auscultation, no respiratory distress Abdomen/GI: Soft, non-tender, no rebound or guarding Back: She has no midline spinal tenderness to palpation she has no rash she has no pain to percussion of her spine she has pain in the left lower back she has no saddle anesthesia MS/ Extremity: Pulses equal, no cyanosis. Neurovascular intact. Full, normal range of motion. Neuro: Awake and alert, GCS 15, oriented to person, place, time, and situation. Cranial nerves II-XII grossly intact. Motor strength 5/5 in all extremities. Sensory grossly intact. Psych: Awake, alert, with orientation to person, place and time. Behavior, mood, and affect are within normal limits. Vital Signs: 12:25 BP 135 / 109; Pulse 72; Resp 17; Temp 99; Pulse Ox 97% ; Pain 10/10; jl7 13:50 Pain 10/10; nj1 14:28 BP 120 / 73; Pulse 70; Resp 18; Pulse Ox 98% on R/A; Pain 8/10; nj1 12:25 Pain Scale: Adult jl7 13:50 Pain Scale: Adult nj1 14:28 Pain Scale: Adult nj1 MDM: 12:17 Patient medically screened. bs3 14:10 Data reviewed: vital signs, nurses notes. ED course: Patient with acute on chronic back bs3 pain she developed new back pain after bending and standing up with consistent with an acute fracture therefore will not do CT she has no red flag symptoms we will treat pain will avoid narcotics as she is getting a spinal intervention within 1 to 2 weeks Patient reassessed she notes her pain is improved but still has pain advised outpatient follow-up NSAIDs return precaution. 14:34 ED course: Patient with acute on chronic pain her symptoms are not consistent with bs3 cauda equina epidural abscess or other life-threatening pathology I will avoid narcotics we will treat pain and reassess she had some pain improvement we discussed her long-term management she requested steroids but will avoid this given her plan for surgery advised to discuss with her pain management doctor and her surgeon tomorrow. Administered Medications: 12:42 Drug: Acetaminophen PO 1000 mg Route: PO; kr3 14:28 Follow up: Response: No adverse reaction nj1 12:43 Drug: Lidoderm Topical Patch 5 % (700 mg/patch) 2 patches Route: Topical; Site: kr3 affected area; 14:28 Follow up: Response: No adverse reaction nj1 12:43 Drug: Cyclobenzaprine PO 10 mg Route: PO; kr3 14:28 Follow up: Response: No adverse reaction nj1 Disposition Summary: 07/23/22 14:11 Discharge Ordered Location: Home bs3 Problem: new bs3 Symptoms: have improved bs3 Condition: Stable bs3 Diagnosis - Low back pain bs3 Followup: bs3 - With: Private Physician - When: 48 Hours - Reason: Re-evaluation by your physician Discharge Instructions: - Discharge Summary Sheet bs3 - Chronic Back Pain, Znfd-iq-Cops bs3 Forms: - Medication Reconciliation Form bs3 - Thank You Letter bs3 - Antibiotic Education bs3 - Prescription Opioid Use bs3 Prescriptions: - Lidoderm 5 % Topical adhesive patch, medicated - apply 2 patch by TOPICAL route daily leave on most painful area for up to 12 bs3 hrs; 12 patch; Refills: 0, Product Selection Permitted - meloxicam 7.5 mg Oral tablet - take 2 tablet by ORAL route once for 7 days; 14 tablet; Refills: 0, Product bs3 Selection Permitted - Cyclobenzaprine 5 mg Oral Tablet - take 1 tablet by ORAL route 3 times per day As needed; 15 tablet; Refills: 0, bs3 Product Selection Permitted Signatures: Carol Gruber RN RN jl7 Nancy Ibrahim RN RN kr3 Gerry Klein MD MD bs3 Victorina Rothman RN nj1
[2022-07-23 14:48] VITALS: TEMP 99
[2022-07-23 14:52] VITALS: BP 120/73; O2SAT 98
== END 2022-07-23 14:37 | disposition home or self-care (01) ==
LOC: ER 12:12
DX: M54.50 Low back pain, unspecified (principal); Z91.040 Latex allergy status; Z91.048 Other nonmedicinal substance allergy status
CPT/HCPCS: 99283; J2001

== ENCOUNTER → 2023-03-11 | Emergency (ER) | payer OTHER ==
[~2023-03-11] MED LIST: MORPHINE 4 MG/ML SYR ONE; ONDANSETRON 4 MG (ODT) TAB ONE
--- NOTE | 2023-03-11 18:23 | ER ---
Nurse's Notes [facility] Name: Mildred Caldwell Age: 47 yrs Sex: Female : 1975 Arrival Date: 03/11/2023 Time: 18:02 Bed 18 Private MD: Diagnosis: Low back pain Presentation: 03/11 18:14 Chief complaint: Patient states: low back pain since 2013, had a pain pump placed in ko1 August and it does not help. Coronavirus screen: At this time, the client does not indicate any symptoms associated with coronavirus-19. Ebola Screen: No symptoms or risks identified at this time. Initial Sepsis Screen: Does the patient meet any 2 criteria? No. Patient's initial sepsis screen is negative. Does the patient have a suspected source of infection? No. Patient's initial sepsis screen is negative. Risk Assessment: Do you want to hurt yourself or someone else? Patient reports no desire to harm self or others. Onset of symptoms is unknown. 18:14 Method Of Arrival: Ambulatory ko1 18:14 Acuity: JENNIFER 3 ko1 Triage Assessment: 18:16 General: Appears distressed, uncomfortable, Behavior is calm, cooperative, appropriate ko1 for age. Pain: Complains of pain in back. Historical: - Allergies: 18:16 Latex; ko1 - PMHx: 18:16 Chronic pain; diabetes mellitus; Hypertension; ko1 - PSHx: 18:16 back; hysterectomy; left foot sx; left shoulder; ko1 - Immunization history:: Adult Immunizations up to date. - Social history:: Smoking status: Patient denies any tobacco usage or history of. Screenin:36 [facility] ED Fall Risk Assessment (Adult) History of falling in the last 3 months, cm10 including since admission No falls in past 3 months (0 pts) Confusion or Disorientation No (0 pts) Intoxicated or Sedated No (0 pts) Impaired Gait No (0 pts) Mobility Assist Device Used No (0 pt) Altered Elimination No (0 pt) Score/Fall Risk Level 0 - 2 = Low Risk Oriented to surroundings, Maintained a safe environment, Hourly rounding (assess needs \T\ fall precautionary measures) done. Abuse screen: Denies threats or abuse. Denies injuries from another. Nutritional screening: No deficits noted. Tuberculosis screening: No symptoms or risk factors identified. Assessment: 18:36 General: Appears in no apparent distress. uncomfortable, Behavior is calm, cooperative. cm10 Pain: Complains of pain in low back area. Neuro: No deficits noted. Level of Consciousness is awake, alert, obeys commands, Oriented to person, place, time, situation. Cardiovascular: No deficits noted. Patient's skin is warm and dry. Respiratory: No deficits noted. Airway is patent Respiratory effort is even, unlabored, Respiratory pattern is regular, symmetrical. GI: No deficits noted. No signs and/or symptoms were reported involving the gastrointestinal system. : No deficits noted. No signs and/or symptoms were reported regarding the genitourinary system. EENT: No deficits noted. No signs and/or symptoms were reported regarding the EENT system. Derm: No deficits noted. No signs and/or symptoms reported regarding the dermatologic system. Skin is intact, Skin is pink, warm \T\ dry. Musculoskeletal: No deficits noted. No signs and/or symptoms reported regarding the musculoskeletal system. Range of motion: intact in all extremities. Vital Signs: 18:14 BP 137 / 88; Pulse 94; Resp 19; Temp 97.6; Pulse Ox 100% on R/A; ko1 ED Course: 18:06 Patient arrived in ED. mg5 18:08 Vesna Shields FNP-C is [facility]. kb 18:08 Peng Jackson MD is Attending Physician. kb 18:16 Triage completed. ko1 18:16 Arm band placed on right wrist. Patient placed in an exam room, on a stretcher, on ko1 pulse oximetry, Patient notified of wait time. 18:37 Patient has correct armband on for positive identification. Provided Education on: cm10 Follow-up instructions. 18:37 No provider procedures requiring assistance completed. Patient did not have IV access cm10 during this emergency room visit. Administered Medications: 18:36 Drug: Ondansetron Oral Disintegrating Tablet Oral Disintegrating Tablet 4 mg PO once cm10 Route: PO; 18:38 Follow up: Response: No adverse reaction cm10 18:36 Drug: morphine IM 4 mg IM once Route: IM; Site: left ventrogluteal; cm10 18:38 Follow up: Response: No adverse reaction cm10 Medication: 18:36 VIS not applicable for this client. cm10 Outcome: 18:22 Discharge ordered by MD. xavier 18:37 Discharged to home ambulatory, 10 18:37 Condition: good 18:37 Discharge instructions given to patient, Instructed on discharge instructions, follow up and referral plans. Demonstrated understanding of instructions, follow-up care, 18:37 Patient left the ED. cm10 Signatures: Vesna Shields, OLIVIER-C OLIVIER-Martha Elias RN RN ko1 Yelena Nielsen RN RN cm10 Nadia Chang 5
--- NOTE | 2023-03-11 18:23 | EDPHYS ---
Physician Documentation [facility] Name: Mildred Caldwell Age: 47 yrs Sex: Female : 1975 Arrival Date: 03/11/2023 Time: 18:02 Bed 18 Private MD: ED Physician Peng Jackson HPI: 03/11 18:20 This 47 yrs old Female presents to ER via Ambulatory with complaints of Low Back Pain. kb 18:20 Pt is a 47 year old female who presents with low back pain. States this is the same kb pain she has had since 2013. States she had a pain pump put in in July, but it only worked for about 2 months. States she doesn't have time to charge the pump so it doesn't work like it should. Denies injury or trauma. Denies urinary symptoms. STates she went out dancing last night, which could have made it flare up. Historical: - Allergies: 18:16 Latex; ko1 - PMHx: 18:16 Chronic pain; diabetes mellitus; Hypertension; ko1 - PSHx: 18:16 back; hysterectomy; left foot sx; left shoulder; ko1 - Immunization history:: Adult Immunizations up to date. - Social history:: Smoking status: Patient denies any tobacco usage or history of. ROS: 18:18 Constitutional: Negative for fever, chills, and weight loss, kb 18:18 Back: Positive for pain at rest, pain with movement, of the low back area, 18:18 All other systems are negative, Exam: 18:18 Constitutional: This is a well developed, well nourished patient who is awake, alert, kb and in no acute distress. Head/Face: Normocephalic, atraumatic. ENT: Moist Mucous membranes Cardiovascular: Regular rate Respiratory: Respirations even and unlabored. No increased work of breathing. Talking in full sentences Back: No spinal tenderness. No costovertebral tenderness. Full range of motion. Skin: Warm, dry with normal turgor. Normal color. MS/ Extremity: Pulses equal, no cyanosis. Neurovascular intact. Full, normal range of motion. Neuro: Awake and alert, GCS 15, oriented to person, place, time, and situation. Moves all extremities. Normal gait. Vital Signs: 18:14 BP 137 / 88; Pulse 94; Resp 19; Temp 97.6; Pulse Ox 100% on R/A; ko1 MDM: 18:08 Patient medically screened. kb 18:19 Differential diagnosis: arthritis, strain, sciatica, Herniated disc UTI, chronic pain. kb Data reviewed: vital signs, nurses notes. Test considered but Not performed: Labs: UA considered, but pt denies urinary symptoms, states this is the same pain she has dealt with since 2013. X-ray: x-ray considered, but pt denies injury or trauma. States this is the exact same pain she has dealt with since 2013. Counseling: I had a detailed discussion with the patient and/or guardian regarding the historical points, exam findings, and any diagnostic results supporting the discharge/admit diagnosis, the need for outpatient follow up, a family practitioner, to return to the emergency department if symptoms worsen or persist or if there are any questions or concerns that arise at home. 18:22 ED course: Pt will call her pain management dr tomorrow. kb Administered Medications: 18:36 Drug: Ondansetron Oral Disintegrating Tablet Oral Disintegrating Tablet 4 mg PO once cm10 Route: PO; 18:38 Follow up: Response: No adverse reaction cm10 18:36 Drug: morphine IM 4 mg IM once Route: IM; Site: left ventrogluteal; cm10 18:38 Follow up: Response: No adverse reaction cm10 Disposition: 18:52 Co-signature as Attending Physician, Peng Jackson MD I reviewed the patient's care rn provided by the Advanced Practice Provider and agree with the diagnosis and treatment plan. Disposition Summary: 03/11/23 18:22 Discharge Ordered Notes: Location: Home kb Condition: Stable kb Diagnosis - Low back pain kb Followup: kb - With: Emergency Department - When: As needed - Reason: Worsening of condition Followup: kb - With: Private Physician - When: 2 - 3 days - Reason: Recheck today's complaints, Continuance of care, Re-evaluation by your physician Discharge Instructions: - Discharge Summary Sheet kb - Chronic Back Pain kb - Musculoskeletal Pain kb Forms: - Medication Reconciliation Form kb - Thank You Letter kb - Antibiotic Education kb - Prescription Opioid Use kb - Patient Portal Instructions kb - Leadership Thank You Letter kb Signatures: Vesna Shields FNP-C FNP-Peng Monk MD MD rn Oliver, Kathy, RN RN ko1 Morales, Yelena, RN RN cm10
[2023-03-11 20:22] VITALS: BP 137/88; TEMP 97.6; O2SAT 100
== END ==
LOC: ER 18:02
DX: M54.50 Low back pain, unspecified (principal); Z97.8 Presence of other specified devices; Z91.040 Latex allergy status
CPT/HCPCS: 96372; 99284; Q0162

== ENCOUNTER 2023-06-21 20:30 | Emergency (ER) | payer OTHER ==
[2023-06-21] MEDS ORDERED: dexAMETHasone 10 MG/ML VIAL ONE (21:43)
[2023-06-21] MEDS ORDERED: ONDANSETRON 4 MG/2 ML VIAL ONE (21:43)
[2023-06-21] MEDS ORDERED: MORPHINE 4 MG/ML SYR ONE ×2 (21:44→23:23)
[2023-06-21] MEDS ORDERED: KETOROLAC 30 MG/ML INJ ONE (21:44)
[2023-06-21] MEDS ORDERED: NA CHLORIDE 0.9% 1,000 ML ONE (21:44)
--- NOTE | 2023-06-21 22:03 | RAD REPORT ---
EXAM DESCRIPTION: RAD - Chest Single View - 06/21/2023 9:54 pm CLINICAL HISTORY: COUGH Chest pain. COMPARISON: Chest Single View dated 04/22/2020; Chest Single View dated 12/09/2019 FINDINGS: Portable technique limits examination quality. The lungs are grossly clear. The heart is upper limit of normal in size. No displaced fractures. IMPRESSION: No acute intrathoracic process suspected.
[2023-06-21 22:05] LABS: Specific Gravity 1.022 (1.005-1.030); Sqamous Epithelial <5 /HPF (None Seen); Urine Bacteria None Seen /HPF (<20); Urine Bilirubin NEGATIVE (Negative); Urine Blood Negative (Negative); Urine Clarity Clear (Clear); Urine Color Light-Yellow (Yellow); Urine Culture Reflex Order NOT NEEDED; Urine Glucose NEGATIVE (Negative); Urine Ketones NEGATIVE (Negative); Urine Microscopic Reflex YN ORDER UMIC; Urine Nitrite NEGATIVE (Negative); Urine Protein NEGATIVE (Negative); Urine RBC <5 /HPF (None Seen); Urine Urobilinogen Normal (Normal); Urine WBC <5 /HPF (<5)
[2023-06-21 22:13] LABS: Absolute Basophils 0.1 K/uL (0-0.5); Absolute Eosinophils 0.1 K/uL (0-0.5); Absolute Lymphocytes (CBC) 2.3 K/uL (0.7-4.9); Absolute Monocytes 0.7 K/uL (0.1-1.3); Absolute Neutrophil 7.4 K/uL (1.8-8.0); Basophils % 0.6 % (0-1.3); Eosinophils % 0.9 % (0-4.4); Hematocrit 43.8 % (36.0-45.0); Hemoglobin 14.7 g/dL (12.0-15.0); MCH 28.4 pg (27.0-35.0); MCHC 33.5 g/dL (32.0-36.0); MCV 84.5 fL (80-100); MPV 8.4 fL (7.6-11.3); Monocytes % 6.8 % (3.3-12.3); Neutrophils % 69.7 % (41.7-73.7); Nucleated Red Blood Cells % 0.1 % (0-0); Platelets 184 thou/uL (152-406); RBC Red Blood Cell Count 5.18 M/uL (3.86-4.86)
[2023-06-21] MEDS ORDERED: CEFTRIAXONE 1000 MG/VIAL ONE (22:31)
[2023-06-21 22:39] LABS: Albumin 4.2 g/dL (3.4-5.0); Anion Gap 5.7 mEq/L (5.0-15.0); Bilirubin Direct 0.1 mg/dL (0-0.2); Bilirubin Indirect, Calculated 0.3 mg/dL (0.2-0.8); Bilirubin Total 0.4 mg/dL (0.2-1.0); Globulin 4.2 g/dL (2.3-3.5); Magnesium 2.3 mg/dL (1.6-2.4); Potassium 3.7 mEq/L (3.5-5.1); Protein, Total 8.4 g/dL (6.4-8.2); Troponin High Sensitivity 3.7 pg/mL (<58.9)
[2023-06-21 22:45] LABS: Protime INR 0.91
--- NOTE | 2023-06-22 00:30 | ER ---
Nurse's Notes [facility] Name: Mildred Caldwell Age: 47 yrs Sex: Female : 1975 Arrival Date: 06/21/2023 Time: 20:30 Bed 18 Private MD: Diagnosis: Pain in right shoulder;Chest pain, unspecified-wall;Unspecified symptoms and signs involving the musculoskeletal system;UTI/ Urinary tract infection, site not specified Presentation: 06/20 20:45 Chief complaint: Patient states: I have right shoulder pain that gets worse when moving ha1 my right arm. 20:45 Coronavirus screen: Vaccine status: Patient reports receiving the 2nd dose of the covid ha1 vaccine. Moderna. Ebola Screen: No symptoms or risks identified at this time. Initial Sepsis Screen: Does the patient meet any 2 criteria? No. Patient's initial sepsis screen is negative. Does the patient have a suspected source of infection? No. Patient's initial sepsis screen is negative. Risk Assessment: Do you want to hurt yourself or someone else? Patient reports no desire to harm self or others. Onset of symptoms was June 21, 2023. 20:45 Method Of Arrival: Ambulatory ha1 20:45 Acuity: JENNIFER 3 ha1 Triage Assessment: 20:50 General: Appears comfortable, Behavior is calm, cooperative. Pain: Complains of pain in ha1 right shoulder, right part of chest, and neck Pain does not radiate. Pain currently is 8 out of 10 on a pain scale. Quality of pain is described as burning, throbbing. Neuro: Level of Consciousness is awake, alert, obeys commands, Oriented to person, place, time, situation. Cardiovascular: Capillary refill < 3 seconds Patient's skin is warm and dry. Respiratory: Airway is patent Respiratory effort is even, unlabored, Respiratory pattern is regular, symmetrical. Historical: - Allergies: 20:50 No Known Allergies; ha1 - PMHx: 20:50 Chronic pain; diabetes mellitus; Hypertension; ha1 - PSHx: 20:50 back; hysterectomy; left foot sx; left shoulder; ha1 - Immunization history:: Adult Immunizations up to date. - Infectious Disease History:: Denies. - Social history:: Smoking status: Patient denies any tobacco usage or history of. - Family history:: not pertinent. Screenin:38 [facility] ED Fall Risk Assessment (Adult) History of falling in the last 3 months, tm6 including since admission No falls in past 3 months (0 pts) Confusion or Disorientation No (0 pts) Intoxicated or Sedated No (0 pts) Impaired Gait No (0 pts) Mobility Assist Device Used No (0 pt) Altered Elimination No (0 pt) Score/Fall Risk Level 0 - 2 = Low Risk Oriented to surroundings, Maintained a safe environment. Abuse screen: Denies threats or abuse. Denies injuries from another. Nutritional screening: No deficits noted. Tuberculosis screening: No symptoms or risk factors identified. Assessment: 21:38 General: Appears in no apparent distress. Behavior is calm, cooperative. Pain: tm6 Complains of pain in right arm Pain currently is 9 out of 10 on a pain scale. Quality of pain is described as burning, Pain began 3pm today Aggravated by increased activity. Neuro: No deficits noted. Level of Consciousness is awake, alert, obeys commands, Oriented to person, place, time, situation. Cardiovascular: Patient's skin is warm and dry. Rhythm is regular. Respiratory: Airway is patent Respiratory effort is even, unlabored, Respiratory pattern is regular, symmetrical. GI: No signs and/or symptoms were reported involving the gastrointestinal system. Abdomen is flat, non-distended. : No signs and/or symptoms were reported regarding the genitourinary system. EENT: No signs and/or symptoms were reported regarding the EENT system. Derm: No signs and/or symptoms reported regarding the dermatologic system. Musculoskeletal: Reports pain in right arm Pain is 9 out of 10 on a pain scale. 23:04 Reassessment: Patient and/or family updated on plan of care and expected duration. Pain tm6 level reassessed. Patient is alert, oriented x 3, equal unlabored respirations, skin warm/dry/pink. Patient states symptoms have not improved. 06/21 00:15 Reassessment: No changes from previously documented assessment. Patient and/or family tm6 updated on plan of care and expected duration. Pain level reassessed. Patient is alert, oriented x 3, equal unlabored respirations, skin warm/dry/pink. 00:49 Reassessment: No changes from previously documented assessment. Patient and/or family tm6 updated on plan of care and expected duration. Pain level reassessed. Patient is alert, oriented x 3, equal unlabored respirations, skin warm/dry/pink. Vital Signs: 06/20 20:45 BP 150 / 105; Pulse 78; Resp 17 S; Temp 97.9(T); Pulse Ox 100% on R/A; Weight 68.04 kg; ha1 22:19 BP 144 / 106; Pulse 71; Pulse Ox 96% on R/A; Pain 8/10; tm6 23:04 BP 139 / 100; Pulse 65; Pulse Ox 95% on R/A; Pain 8/10; tm6 06/21 00:13 BP 141 / 100; Pulse 65; Pulse Ox 94% on R/A; Pain 5/10; tm6 00:49 BP 142 / 104; Pulse 75; Resp 19; Temp 97.5(TE); Pulse Ox 94% on R/A; Pain 5/10; tm6 22:19 Pain Scale: Adult tm6 23:04 Pain Scale: Adult tm6 06/21 00:13 Pain Scale: Adult tm6 00:49 Pain Scale: Adult tm6 ED Course: 06/20 20:33 Patient arrived in ED. ra3 20:50 Triage completed. ha1 20:56 Yan Ramirez MD is Attending Physician. harshal 21:26 Arturo Prasad, RN is Primary Nurse. tm6 21:35 EKG done, by ED staff, reviewed by Yna Ramirez MD. tm6 21:38 Patient has correct armband on for positive identification. Placed in gown. Bed in low tm6 position. Call light in reach. Side rails up X 1. Provided Education on: plan of care, use of call cornelius. Client placed on continuous cardiac and pulse oximetry monitoring. NIBP monitoring applied. architectural modeler on. Pulse ox on. NIBP on. Door closed. Noise minimized. Warm blanket given. 21:53 PREGU Sent. tm6 21:53 Urinalysis w/ reflexes Sent. tm6 21:56 XRAY Chest (1 view) In Process Unspecified. EDMS 22:07 Inserted saline lock: 22 gauge in right forearm, using aseptic technique. vk 22:11 Initial lab(s) drawn, by ma, sent to lab. Urine collected: clean catch specimen, clear. vk 22:18 Basic Metabolic Panel Sent. tm6 22:18 LFT's Sent. tm6 22:18 Magnesium Sent. tm6 22:18 NT PRO-BNP Sent. tm6 22:18 PT-INR Sent. tm6 22:18 Troponin HS Sent. tm6 22:19 Lipase Sent. tm6 22:19 Arm band placed on right wrist. tm6 23:16 CT Aorta for Dissection In Process Unspecified. [facility] 06/21 00:50 No provider procedures requiring assistance completed. IV discontinued, intact, tm6 bleeding controlled, No redness/swelling at site. Pressure dressing applied. Administered Medications: 06/20 22:18 Drug: Ketorolac IVP 30 mg IVP once Route: IVP; Site: right forearm; tm6 22:18 Drug: Decadron - Dexamethasone IVP 10 mg IVP once Route: IVP; Site: right forearm; tm6 22:19 Drug: morphine IVP or IV 4 mg IVP once over 4 mins Route: IVP; Infused Over: 4 mins; tm6 Site: right forearm; 22:19 Drug: Ondansetron IVP 4 mg IVP once; over 2 minutes Route: IVP; Site: right forearm; tm6 22:19 Drug: NS 0.9% IV 1000 ml IV at 1 bolus Per protocol; 1000 mL bolus Route: IV; Rate: 1 tm6 bolus; Site: right forearm; 06/21 00:51 Follow up: IV Status: Completed infusion; IV Intake: 1000ml tm6 06/20 22:52 Drug: Rocephin IV 1 grams IV at per protocol once; Given slow IV push per pharmacy tm6 instructions Route: IV; Rate: per protocol; Site: right antecubital; 23:27 Drug: morphine IVP or IV 4 mg IVP once over 4 mins Route: IVP; Infused Over: 4 mins; tm6 Site: right forearm; Medication: 21:38 VIS not applicable for this client. tm6 Intake: 06/21 00:51 IV: 1000ml; Total: 1000ml. tm6 Outcome: 00:30 Discharge ordered by . harshal 00:50 Discharged to home ambulatory, with family, tm6 00:50 Condition: stable 00:50 Discharge instructions given to patient, Instructed on discharge instructions, follow up and referral plans. medication usage, Demonstrated understanding of instructions, follow-up care, medications, Prescriptions given X 5 00:50 Patient left the ED. tm6 Signatures: Dispatcher [employer] EDOH Yan Ramirez, MD MD harshal Hatch, Mei, RN RN ha1 Arturo Prasad RN RN 6 Sola Penn ra3 Xenia Brasher
--- NOTE | 2023-06-22 00:30 | EDPHYS ---
Physician Documentation [facility] Name: Mildred Caldwell Age: 47 yrs Sex: Female : 1975 Arrival Date: 06/21/2023 Time: 20:30 Bed 18 Private MD: CHICHO Physician Yan Ramirez HPI: 06/21 00:17 This 47 yrs old Female presents to ER via Ambulatory with complaints of Whole harshal right side burning sensation. 00:17 The patient or guardian complains of decreased range of motion. right shoulder and harshal right trapezius. Context: The problem was sustained at an unknown site, resulted from an unknown reason, The patient experiences decreased range of motion, The patient reports no obvious deformity. Onset: The symptoms/episode began/occurred 2 day(s) ago. Modifying factors: the symptoms are alleviated by remaining still, The symptoms are aggravated by movement. Associated signs and symptoms: Pertinent positives: chest pain, shortness of breath. The patient or guardian reports chest pain that is located primarily in the anterior chest wall, right. no specific trauma, has happened before. Historical: - Allergies: 06/20 20:50 No Known Allergies; ha1 - PMHx: 20:50 Chronic pain; diabetes mellitus; Hypertension; ha1 - PSHx: 20:50 back; hysterectomy; left foot sx; left shoulder; ha1 - Immunization history:: Adult Immunizations up to date. - Infectious Disease History:: Denies. - Social history:: Smoking status: Patient denies any tobacco usage or history of. - Family history:: not pertinent. ROS: 06/21 00:17 Constitutional: Negative for fever, chills, and weight loss, Eyes: Negative for injury, harshal pain, redness, and discharge, ENT: Negative for injury, pain, and discharge, Neck: Negative for injury, pain, and swelling, Abdomen/GI: Negative for abdominal pain, nausea, vomiting, diarrhea, and constipation, Back: Negative for injury and pain, : Negative for injury, bleeding, discharge, and swelling, Skin: Negative for injury, rash, and discoloration, Neuro: Negative for headache, weakness, numbness, tingling, and seizure, Psych: Negative for depression, anxiety, suicide ideation, homicidal ideation, and hallucinations, Allergy/Immunology: Negative for hives, rash, and allergies, Endocrine: Negative for neck swelling, polydipsia, polyuria, polyphagia, and marked weight changes, Hematologic/Lymphatic: Negative for swollen nodes, abnormal bleeding, and unusual bruising, Cardiovascular: Positive for chest pain, of the chest, Respiratory: Positive for pleurisy, Abdomen/GI: Negative for abdominal pain, MS/extremity: Positive for decreased range of motion, pain, of the anterior aspect of right shoulder and posterior aspect of right shoulder, Exam: 00:17 Constitutional: This is a well developed, well nourished patient who is awake, alert, harshal and in no acute distress. Head/Face: Normocephalic, atraumatic. Eyes: Pupils equal round and reactive to light, extra-ocular motions intact. Lids and lashes normal. Conjunctiva and sclera are non-icteric and not injected. Cornea within normal limits. Periorbital areas with no swelling, redness, or edema. ENT: Nares patent. No nasal discharge, no septal abnormalities noted. Tympanic membranes are normal and external auditory canals are clear. Oropharynx with no redness, swelling, or masses, exudates, or evidence of obstruction, uvula midline. Mucous membranes moist. Neck: Trachea midline, no thyromegaly or masses palpated, and no cervical lymphadenopathy. Supple, full range of motion without nuchal rigidity, or vertebral point tenderness. No Meningismus. Chest/axilla: Normal chest wall appearance and motion. Nontender with no deformity. No lesions are appreciated. Cardiovascular: Regular rate and rhythm with a normal S1 and S2. No gallops, murmurs, or rubs. Normal PMI, no JVD. No pulse deficits. Respiratory: Lungs have equal breath sounds bilaterally, clear to auscultation and percussion. No rales, rhonchi or wheezes noted. No increased work of breathing, no retractions or nasal flaring. Abdomen/GI: Soft, non-tender, with normal bowel sounds. No distension or tympany. No guarding or rebound. No evidence of tenderness throughout. Back: No spinal tenderness. No costovertebral tenderness. Full range of motion. Skin: Warm, dry with normal turgor. Normal color with no rashes, no lesions, and no evidence of cellulitis. Neuro: Awake and alert, GCS 15, oriented to person, place, time, and situation. Cranial nerves II-XII grossly intact. Motor strength 5/5 in all extremities. Sensory grossly intact. Cerebellar exam normal. Normal gait. Psych: Awake, alert, with orientation to person, place and time. Behavior, mood, and affect are within normal limits. 00:17 Musculoskeletal/extremity: Circulation is intact in all extremities. Sensation intact. Compartment Syndrome exam of affected extremity: is normal. Weight bearing: able to fully bear weight, without difficulty, DVT Exam: no swelling, negative Homans' sign noted on exam, no appreciated bluish discoloration, no erythema, no increased warmth, pain, tenderness, 00:17 Skin: no rash present. Vital Signs: 06/20 20:45 BP 150 / 105; Pulse 78; Resp 17 S; Temp 97.9(T); Pulse Ox 100% on R/A; Weight 68.04 kg; ha1 22:19 BP 144 / 106; Pulse 71; Pulse Ox 96% on R/A; Pain 8/10; tm6 23:04 BP 139 / 100; Pulse 65; Pulse Ox 95% on R/A; Pain 8/10; tm6 06/21 00:13 BP 141 / 100; Pulse 65; Pulse Ox 94% on R/A; Pain 5/10; tm6 00:49 BP 142 / 104; Pulse 75; Resp 19; Temp 97.5(TE); Pulse Ox 94% on R/A; Pain 5/10; tm6 22:19 Pain Scale: Adult tm6 23:04 Pain Scale: Adult tm6 06/21 00:13 Pain Scale: Adult tm6 00:49 Pain Scale: Adult tm6 MDM: 06/20 20:56 Patient medically screened. harshal 06/21 00:22 Differential diagnosis: DJD, tendonitis, abnormal EKG, acute myocardial infarction, harshal acute pericarditis, coronary artery disease congestive heart failure esophagitis, hiatal hernia, pancreatitis, pleurisy, pneumothorax, pulmonary embolus, stable angina, thoracic aortic disection. Differential Diagnosis altered mental status, sepsis, flu. HEART Score: History: Slightly Suspicious (0), ECG: Non specific repolarization disturbance / LBTB / PM (1), Age: > 45 and < 65 years (1), Risk Factors: > or = 3 Risk factors for atherosclerotic disease (2), [Hypertension] [DM] [+ Family HX] Troponin: < or = 1 x Normal Limit (0). The patient was given aspirin in the Emergency Department. BONNIE Risk Score: 1 - Three or more CAD risk factors, TOTAL SCORE = 1. Data reviewed: vital signs, nurses notes, lab test result(s), EKG, radiologic studies, CT scan, plain films. Consideration of Admission/Observation Escalation of care including admission/observation considered. 06/20 20:59 Order name: Basic Metabolic Panel; Complete Time: 22:48 [facility] 06/20 20:59 Order name: CBC with Diff; Complete Time: 22:26 [facility] 06/20 20:59 Order name: LFT's; Complete Time: 22:48 [facility] 06/20 20:59 Order name: Magnesium; Complete Time: 22:48 [facility] 06/20 20:59 Order name: NT PRO-BNP; Complete Time: 22:48 [facility] 06/20 20:59 Order name: PT-INR; Complete Time: 22:48 [facility] 06/20 20:59 Order name: Troponin HS; Complete Time: 22:48 [facility] 06/20 20:59 Order name: Lipase; Complete Time: 22:48 [facility] 06/20 20:59 Order name: Urinalysis w/ reflexes; Complete Time: 22:26 [facility] 06/20 20:59 Order name: PREGU; Complete Time: 22:26 [facility] 06/20 20:59 Order name: XRAY Chest (1 view); Complete Time: 22:26 [facility] 06/20 20:59 Order name: CT Aorta for Dissection [facility] 06/20 20:59 Order name: Cardiac monitoring; Complete Time: 22:18 [facility] 06/20 20:59 Order name: EKG - Nurse/Tech; Complete Time: 21:35 [facility] 06/20 20:59 Order name: IV Saline Lock; Complete Time: 22:18 [facility] 06/20 20:59 Order name: Labs collected and sent; Complete Time: 22:18 [facility] 06/20 20:59 Order name: O2 Per Protocol; Complete Time: 22:18 [facility] 06/20 20:59 Order name: O2 Sat Monitoring; Complete Time: 22:18 harshal Administered Medications: 06/20 22:18 Drug: Ketorolac IVP 30 mg IVP once Route: IVP; Site: right forearm; tm6 22:18 Drug: Decadron - Dexamethasone IVP 10 mg IVP once Route: IVP; Site: right forearm; tm6 22:19 Drug: morphine IVP or IV 4 mg IVP once over 4 mins Route: IVP; Infused Over: 4 mins; tm6 Site: right forearm; 22:19 Drug: Ondansetron IVP 4 mg IVP once; over 2 minutes Route: IVP; Site: right forearm; tm6 22:19 Drug: NS 0.9% IV 1000 ml IV at 1 bolus Per protocol; 1000 mL bolus Route: IV; Rate: 1 tm6 bolus; Site: right forearm; 06/21 00:51 Follow up: IV Status: Completed infusion; IV Intake: 1000ml tm6 06/20 22:52 Drug: Rocephin IV 1 grams IV at per protocol once; Given slow IV push per pharmacy tm6 instructions Route: IV; Rate: per protocol; Site: right antecubital; 23:27 Drug: morphine IVP or IV 4 mg IVP once over 4 mins Route: IVP; Infused Over: 4 mins; tm6 Site: right forearm; Disposition Summary: 06/22/23 00:30 Discharge Ordered Notes: Location: Home harshal Problem: new harshal Symptoms: have improved harshal Condition: Stable harshal Diagnosis - Pain in right shoulder harshal - Chest pain, unspecified - wall harshal - Unspecified symptoms and signs involving the musculoskeletal system harshal - UTI/ Urinary tract infection, site not specified harshal Followup: harshal - With: Private Physician - When: 2 - 3 days - Reason: Recheck today's complaints, Continuance of care, Re-evaluation by your physician Discharge Instructions: - Discharge Summary Sheet harshal - Joint Pain harshal - Nonspecific Chest Pain, Adult harshal - Chest Wall Pain harshal - Musculoskeletal Pain harshal - Shoulder Pain harshal - Urinary Tract Infection, Adult harshal - Shoulder Pain, [id number] harshal - Chest Wall Pain, Hbrf-[id number]-[id number] harshal - Urinary Tract Infection, Adult, Axmv-gp-[id number] harshal - Nonspecific Chest Pain, Adult, Ujrh-zd-[id number] harshal - Aspirin and Your Heart harshal Forms: - Medication Reconciliation Form harshal - Antibiotic Education harshal - Prescription Opioid Use harshal - Patient Portal Instructions harshal - Leadership Thank You Letter [facility] Prescriptions: - acetaminophen-codeine 300-30 mg Oral tablet - take 2 tablet ORAL route every 6 hours; 20 tablet; Refills: 0, Product harshal Selection Permitted - dexamethasone 4 mg Oral tablet - take 1 tablet ORAL route daily; 5 tablet; Refills: 0, Product Selection harshal Permitted - Cipro 250 mg Oral tablet - take 1 tablet ORAL route every 12 hours; 14 tablet; Refills: 0, Product [facility] Selection Permitted - Ibuprofen 600 mg Oral Tablet - take 1 tablet ORAL route every 6 hours As needed take with food; 30 tablet; [facility] Refills: 0, Product Selection Permitted - Cyclobenzaprine 5 mg Oral Tablet - take 1 tablet ORAL route 3 times per day As needed; 15 tablet; Refills: 0, [facility] Product Selection Permitted Signatures: Dispatcher [employer] EDMS Yan Ramirez MD MD cha Ayala, Heidy, RN RN ha1 Arturo Prasad, RN RN tm6 Corrections: (The following items were deleted from the chart) 21:00 21:00 BASIC METABOLIC PANEL+C.LAB.BRZ ordered. EDMS EDMS 21: 21:00 CBC+H.LAB.BRZ ordered. EDMS EDMS 21: 21:00 HEPATIC FUNCTION+C.LAB.BRZ ordered. EDMS EDMS 21: 21:00 MAGNESIUM+C.LAB.BRZ ordered. EDMS EDMS 21: 21:00 PROBNP+C.LAB.BRZ ordered. EDMS EDMS 21:00 21:00 PROTIME (+INR)+COAG.LAB.BRZ ordered. EDMS EDMS 21:00 21:00 Troponin High Sensitivity+C.LAB.BRZ ordered. EDMS EDMS 21:00 21:00 LIPASE+C.LAB.BRZ ordered. EDMS EDMS 21:00 21:00 Urinalysis+U.LAB.BRZ ordered. EDMS EDMS 21:00 21:00 Test, Urine+UC.LAB.BRZ ordered. EDMS EDMS 21:00 21:00 Angio Aorta For Dissection+CT.RAD.BRZ ordered. EDMS EDMS
[2023-06-22 01:14] VITALS: BP 142/104; TEMP 97.5; O2SAT 94
--- NOTE | 2023-06-22 14:36 | EKG ---
Test Date: 2023-06-21 Test Time: 21:37:08 Legal Services Professional: [place] MEASUREMENT RESULTS: Intervals: Rate: 73 IL: 142 QRSD: 100 QT: 396 QTc: 436 [place]: P: 71 IL: 142 QRS: 54 T: 65 INTERPRETIVE STATEMENTS: Normal sinus rhythm Possible Left atrial enlargement Incomplete right bundle branch block Nonspecific T wave abnormality Abnormal ECG Compared to ECG 04/22/2020 14:43:20 T-wave abnormality now present Atrial premature complex(es) no longer present Electronically Signed On 06-22-23 14:35:19 CDT by Fish Amezquita
--- NOTE | 2023-06-23 13:57 | RAD REPORT ---
EXAM DESCRIPTION: CT CHEST ABDOMEN PELVIS ANGIOGRAPHY WITH IV CONTRAST CLINICAL HISTORY: ABD PAIN COMPARISON: None. TECHNIQUE: CT CHEST ABDOMEN PELVIS ANGIOGRAPHY WITH IV CONTRAST on 06/21/2023 8:59 PM CDT. MIPS recons tructions were generated. This exam was performed according to our departmental dose-optimization program, which includes autom ated exposure control, adjustment of the mA and/or kV according to patient size and/or use of iterati ve reconstruction technique. FINDINGS: Vascular: Thoracic aorta is normal in course and caliber without aneurysm or dissection. P ulmonary arteries are adequately opacified without acute or chronic filling defects. Abdominal aorta is normal in course and caliber without aneurysm. Pelvic arteries are patent without aneurysm or occl usion. Chest: The heart is normal in size. There is no pericardial effusion. Intrathoracic lymph nodes are n ot enlarged. 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 There is no pleural effusion, pleural thickening or pneumothorax. Central airways are patent. Lungs a re clear with no consolidation, mass or interstitial lung disease. Abdomen: The liver is normal in appearance. There is no biliary dilatation. Gallbladder is normal in appearance. The pancreas and spleen are normal in appearance. The adrenal glands and kidneys are unre markable. There is no free air. There is no retroperitoneal adenopathy. Pelvis: There is large amount of stool throughout the colon. Urinary bladder is unremarkable. There i s no free fluid. Hysterectomy was performed. Appendix is normal. Skeleton: There are no acute osseous findings. No suspicious bony lesions. Lower lumbar fusion was pe rformed. Spinal stimulator is present with electrode in the thoracic spine. IMPRESSION: No aortic dissection or aneurysm. No pulmonary embolus. No pneumonia. No acute inflammatory process in the abdomen or pelvis. Electronically signed by: Andrei Alvares MD 06/22/2023 12:23 AM CDT Due to temporary technical issues with the PACS/Fluency reporting system, reports are being signed by the in house radiologists without review as a courtesy to insure prompt reporting. The interpreting radiologist is fully responsible for the content of the report.
== END 2023-06-22 00:50 | disposition home or self-care (01) ==
LOC: ER 20:30
DX: M25.511 Pain in right shoulder (principal); R07.89 Other chest pain; R29.91 Unspecified symptoms and signs involving the musculoskeletal system; N39.0 Urinary tract infection, site not specified
CPT/HCPCS: 93005; 85025; 81001; 80048; 36415; 83735; 81025; 85610; 80076; 84484; 83690; 83880; 71275; 74175; 71045; 99285; Q9967; J1100; J2405; J7030; J0696

== ENCOUNTER 2023-12-03 08:54 | Emergency (ER) | payer OTHER, SELFPAY ==
[2023-12-03] MEDS ORDERED: DIAZEPAM 5 MG TABLET ONE (09:13)
[2023-12-03] MEDS ORDERED: HYDROCODONE/APAP 5/325 MG TAB ONE (09:13)
--- NOTE | 2023-12-03 10:16 | RAD REPORT ---
EXAMINATION: XR RIGHT SHOUDLER CLINICAL INDICATION: Female, 47 years old. PAIN RIGHT TECHNIQUE: Multiple views of the right shoulder were obtained. COMPARISON: No prior exam. FINDINGS: Mild AC joint and glenohumeral joint arthritic changes are present. No acute fracture or di slocation seen.
--- NOTE | 2023-12-03 10:20 | EDPHYS ---
Physician Documentation [facility] Name: Mildred Caldwell Age: 47 yrs Sex: Female : 1975 Arrival Date: 12/03/2023 Time: 08:54 Bed 20 Private MD: ED Physician Peng Jackson HPI: 12/02 09:28 This 47 yrs old Female presents to ER via Ambulatory with complaints of Fall Injury. kb 09:28 Pt is a 47 year old female who presents for right shoulder and low back pain. States kb she was startled out of bed at 0200 and twisted too fast causing her to call, but she caught herself so she did not hit the ground. Reports pain to right shoulder and exacerbation of chronic low back pain. Ambulates with steady gait. Historical: - Allergies: 09:20 Codeine; hb 09:20 Morphine; hb - PMHx: 09:20 Chronic pain; diabetes mellitus; Hypertension; hb - PSHx: 09:20 back; hysterectomy; left foot sx; left shoulder; hb 09:20 Bilateral Mastectomy; hb - Immunization history:: Adult Immunizations up to date. - Infectious Disease History:: Denies. - Social history:: Smoking status: Patient denies any tobacco usage or history of. ROS: 09:28 Constitutional: As per HPI kb Exam: 09:28 Constitutional: This is a well developed, well nourished patient who is awake, alert, kb and in no acute distress. Head/Face: Normocephalic, atraumatic. ENT: Moist Mucous membranes Cardiovascular: Regular rate Respiratory: Respirations even and unlabored. No increased work of breathing. Talking in full sentences Abdomen/GI: Soft, non-tender. No distention Back: No spinal tenderness. No costovertebral tenderness. Full range of motion. Skin: Warm, dry with normal turgor. Normal color. Neuro: Awake and alert, GCS 15, oriented to person, place, time, and situation. Moves all extremities. Normal gait. 09:28 Musculoskeletal/extremity: Extremities: grossly normal except: noted in the anterior aspect of right shoulder: decreased ROM, pain, ROM: limited active range of motion, in the anterior aspect of right shoulder, unable to abduct arm, Circulation is intact in all extremities. Sensation intact. Vital Signs: 09:00 BP 132 / 95; Pulse 75; Resp 16; Temp 97.7(TE); Pulse Ox 100% on R/A; Weight 68.04 kg; hb Height 5 ft. 5 in. ; Pain 8/10; 10:30 BP 135 / 88; Pulse 70; Resp 17; Pulse Ox 99% on R/A; rs5 09:00 Body Mass Index 24.96 (68.04 kg, 165.1 cm) hb 09:00 Pain Scale: Adult hb MDM: 08:57 Patient medically screened. kb 09:16 Patient medically screened. kb 09:31 Differential diagnosis: fracture, sprain, strain. Data reviewed: vital signs, nurses kb notes. 10:19 Test considered but Not performed: MRI: MRI shoulder and low back considered but pain kb is chronic. Pt educated to follow up for possible outpatient MRI. Counseling: I had a detailed discussion with the patient and/or guardian regarding the historical points, exam findings, and any diagnostic results supporting the discharge/admit diagnosis, radiology results, the need for outpatient follow up, a family practitioner, to return to the emergency department if symptoms worsen or persist or if there are any questions or concerns that arise at home. 12/02 09:11 Order name: Shoulder Right (2 View) XRAY; Complete Time: 10:17 kb Administered Medications: 09:19 Drug: HYDROcodone-acetaminophen PO 5 mg-325 mg 1 tabs PO once Route: PO; rs5 10:30 Follow up: Response: No adverse reaction; Pain is decreased rs5 09:19 Drug: Diazepam PO 5 mg PO once Route: PO; rs5 10:22 Follow up: Response: No adverse reaction; Pain is decreased rs5 Disposition Summary: 12/03/23 10:20 Discharge Ordered Notes: Location: Home kb Condition: Stable kb Diagnosis - Low back pain kb - Pain in right shoulder kb Followup: kb - With: Emergency Department - When: As needed - Reason: Worsening of condition Followup: kb - With: Private Physician - When: 2 - 3 days - Reason: Recheck today's complaints, Continuance of care, Re-evaluation by your physician Discharge Instructions: - Discharge Summary Sheet kb - Musculoskeletal Pain kb Forms: - Medication Reconciliation Form kb - Antibiotic Education kb - Prescription Opioid Use kb - Patient Portal Instructions kb - Leadership Thank You Letter kb Prescriptions: - Diclofenac Sodium 75 mg Oral tablet, delayed release (enteric coated) - take 1 tablet ORAL route 2 times per day As needed; 30 tablet; Refills: 0, kb Product Selection Permitted - orphenadrine citrate 100 mg Oral Tablet Sustained Release - take 1 tablet ORAL route 2 times per day As needed; 20 tablet; Refills: 0, kb Product Selection Permitted Signatures: Dispatcher [employer] Vesna Contreras FNP-C FNP-Ckb Baxter, Heather, RN RN Iker Dunne RN RN rs5 Corrections: (The following items were deleted from the chart) 09:20 PSHx: Bilateral Mastectomy (left shoulder); hb hb : 09:20 PSHx: Bilateral Mastectomy (left shoulder); hb hb
--- NOTE | 2023-12-03 10:20 | ER ---
Nurse's Notes [facility] Name: Mildred Caldwell Age: 47 yrs Sex: Female : 1975 Arrival Date: 12/03/2023 Time: 08:54 Bed 20 Private MD: Diagnosis: Low back pain;Pain in right shoulder Presentation: 12/02 09:00 Chief complaint: Right shoulder and low back pain after mechanical fall getting out of bed last night. Coronavirus screen: At this time, the client does not indicate any symptoms associated with coronavirus-19. Ebola Screen: No symptoms or risks identified at this time. Initial Sepsis Screen: Does the patient meet any 2 criteria? No. Patient's initial sepsis screen is negative. Does the patient have a suspected source of infection? No. Patient's initial sepsis screen is negative. Risk Assessment: Do you want to hurt yourself or someone else? Patient reports no desire to harm self or others. Onset of symptoms was December 03, 2023. 09:00 Method Of Arrival: Ambulatory hb 09:00 Acuity: JENNIFER 4 hb Triage Assessment: 09:05 General: Appears in no apparent distress. uncomfortable, Behavior is cooperative, rs5 anxious. Historical: - Allergies: 09:20 Codeine; hb 09:20 Morphine; hb - PMHx: 09:20 Chronic pain; diabetes mellitus; Hypertension; hb - PSHx: 09:20 back; hysterectomy; left foot sx; left shoulder; hb 09:20 Bilateral Mastectomy; hb - Immunization history:: Adult Immunizations up to date. - Infectious Disease History:: Denies. - Social history:: Smoking status: Patient denies any tobacco usage or history of. Screenin:05 [facility] ED Fall Risk Assessment (Adult) History of falling in the last 3 months, rs5 including since admission Yes- single mechanical fall (1 pt) Confusion or Disorientation No (0 pts) Intoxicated or Sedated No (0 pts) Impaired Gait No (0 pts) Mobility Assist Device Used No (0 pt) Altered Elimination No (0 pt) Score/Fall Risk Level 0 - 2 = Low Risk Oriented to surroundings, Maintained a safe environment. Abuse screen: Denies threats or abuse. Nutritional screening: No deficits noted. Tuberculosis screening: No symptoms or risk factors identified. Assessment: 09:05 General: Appears in no apparent distress. uncomfortable, Behavior is cooperative, rs5 anxious. Pain: Complains of pain in right shoulder Pain radiates to back Pain currently is 8 out of 10 on a pain scale. Quality of pain is described as aching, Is continuous. Neuro: Level of Consciousness is awake, alert, obeys commands, Oriented to person, place, time, situation. Cardiovascular: Patient's skin is warm and dry. Respiratory: Airway is patent Respiratory effort is even, unlabored, Respiratory pattern is regular, symmetrical. GI: Abdomen is round non-distended, Abd is soft and non tender X 4 quads. 09:05 : No signs and/or symptoms were reported regarding the genitourinary system. EENT: No rs5 signs and/or symptoms were reported regarding the EENT system. Derm: Skin is intact, Skin is pink, warm \T\ dry. Musculoskeletal: Range of motion: limited in right arm. 10:10 Reassessment: Patient and/or family updated on plan of care and expected duration. Pain rs5 level reassessed. Patient is alert, oriented x 3, equal unlabored respirations, skin warm/dry/pink. 10:38 Reassessment: Patient and/or family updated on plan of care and expected duration. Pain rs5 level reassessed. Patient is alert, oriented x 3, equal unlabored respirations, skin warm/dry/pink. Vital Signs: 09:00 BP 132 / 95; Pulse 75; Resp 16; Temp 97.7(TE); Pulse Ox 100% on R/A; Weight 68.04 kg; hb Height 5 ft. 5 in. ; Pain 8/10; 10:30 BP 135 / 88; Pulse 70; Resp 17; Pulse Ox 99% on R/A; rs5 09:00 Body Mass Index 24.96 (68.04 kg, 165.1 cm) hb 09:00 Pain Scale: Adult hb ED Course: 08:56 Patient arrived in ED. im 08:57 Vesna Shields FNP-C [facility]. kb 08:57 Peng Jackson MD is Attending Physician. kb 09:02 Iker Dunne, TACHO is Primary Nurse. rs5 09:05 Patient has correct armband on for positive identification. Placed in gown. Bed in low rs5 position. Call light in reach. Side rails up X2. 09:05 Arm band placed on right wrist. rs5 09:05 No provider procedures requiring assistance completed. rs5 09:19 Triage completed. hb 10:14 Shoulder Right (2 View) XRAY In Process Unspecified. EDMS 10:40 Patient did not have IV access during this emergency room visit. rs5 10:41 Provided Education on: discharge instructions . rs5 Administered Medications: 09:19 Drug: HYDROcodone-acetaminophen PO 5 mg-325 mg 1 tabs PO once Route: PO; rs5 10:30 Follow up: Response: No adverse reaction; Pain is decreased rs5 09:19 Drug: Diazepam PO 5 mg PO once Route: PO; rs5 10:22 Follow up: Response: No adverse reaction; Pain is decreased rs5 Medication: 10:00 VIS not applicable for this client. rs5 Outcome: 10:20 Discharge ordered by MD. kb 10:40 Discharged to home ambulatory, rs5 10:40 Condition: stable rs5 10:40 Discharge instructions given to patient, family, Instructed on discharge instructions, follow up and referral plans. medication usage, Demonstrated understanding of instructions, follow-up care, medications, Prescriptions given X 2, 10:42 Patient left the ED. rs5 Signatures: Dispatcher [employer] EDCT Vesna Shields, JACKLYN MINING ENGINEER-Mildred Cheney RN RN Iker Dunne RN RN rs5 Neela Flores Corrections: (The following items were deleted from the chart) 09:21 09:20 PSHx: Bilateral Mastectomy (left shoulder); hb hb 09:21 09:20 PSHx: Bilateral Mastectomy (left shoulder); hb hb 11:13 11:12 BP 135 / 88; Pulse 70bpm; Resp 17bpm; Pulse Ox 99% RA; rs5 rs5 11:35 10:40 Discharge instructions given to patient, family, Instructed on discharge rs5 instructions, follow up and referral plans. Demonstrated understanding of instructions, follow-up care, rs5
[2023-12-03 11:15] VITALS: BP 132/95; TEMP 97.7; O2SAT 100
== END 2023-12-03 10:42 | disposition home or self-care (01) ==
LOC: ER 08:54
DX: M54.50 Low back pain, unspecified (principal); M25.511 Pain in right shoulder